=== PATIENT | female | born 1950 | race Caucasian/White ===

== ENCOUNTER → 2016-10-16 | Outpatient (CLI) | payer BC ==
[2016-10-16 13:34] LABS: ALBUMIN 3.8 GM/DL (3.2-5.2); ALBUMIN/GLOBULIN RATIO 1.31 (1.00-1.93); ALKALINE PHOSPHATASE 51 U/L (45-117); ALT/SGPT 26 U/L (12-78); ANION GAP 7 MEQ/L (8-16); AST/SGOT 14 U/L (15-37); BILIRUBIN,TOTAL 0.4 MG/DL (0.2-1.0); BLOOD UREA NITROGEN 17 MG/DL (7-18); CALCIUM LEVEL 8.9 MG/DL (8.8-10.2); CARBON DIOXIDE LEVEL 29 MEQ/L (21-32); CHLORIDE LEVEL 105 MEQ/L (98-107); CHOLESTEROL LEVEL 203 MG/DL (<200); CREATININE FOR GFR 0.62 MG/DL (0.55-1.02); FREE T4 1.11 NG/DL (0.76-1.46); GLOMERULAR FILTRATION RATE > 60.0 (>45); GLUCOSE, FASTING 108 MG/DL (80-110); POTASSIUM SERUM 4.9 MEQ/L (3.5-5.1); SODIUM LEVEL 141 MEQ/L (136-145); TOTAL PROTEIN 6.7 GM/DL (6.4-8.2); TRIGLYCERIDES LEVEL 54 MG/DL (<150)
== END ==
LOC: M SMT 08:05
PROVIDERS: ATTEND Family Medicine
DX: E11.40 Type 2 diabetes mellitus with diabetic neuropathy, unspecified (principal); E78.2 Mixed hyperlipidemia; E03.8 Other specified hypothyroidism

== ENCOUNTER → 2017-05-10 | Outpatient (CLI) | payer BC ==
[2017-05-10 14:48] LABS: ANION GAP 7 MEQ/L (8-16); BLOOD UREA NITROGEN 14 MG/DL (7-18); CALCIUM LEVEL 9.5 MG/DL (8.8-10.2); CARBON DIOXIDE LEVEL 28 MEQ/L (21-32); CHLORIDE LEVEL 104 MEQ/L (98-107); CHOLESTEROL LEVEL 191 MG/DL (<200); CREATININE FOR GFR 0.58 MG/DL (0.55-1.02); FREE T4 1.21 NG/DL (0.76-1.46); GLOMERULAR FILTRATION RATE > 60.0 (>45); GLUCOSE, FASTING 96 MG/DL (80-110); MAGNESIUM LEVEL 2.4 MG/DL (1.8-2.4); POTASSIUM SERUM 5.1 MEQ/L (3.5-5.1); SODIUM LEVEL 139 MEQ/L (136-145); TRIGLYCERIDES LEVEL 45 MG/DL (<150)
== END ==
LOC: M SMT 09:07
PROVIDERS: ATTEND Physician Assistant
DX: E11.40 Type 2 diabetes mellitus with diabetic neuropathy, unspecified (principal); E03.8 Other specified hypothyroidism

== ENCOUNTER → 2017-05-20 | Outpatient (CLI) | payer BC ==
[2017-05-25 00:06] LABS: Lyme Disease IgG Ab 18 kDa Ban Absent (.); Lyme Disease IgG Ab 23 kDa Ban Absent (.); Lyme Disease IgG Ab 28 kDa Ban Absent (.); Lyme Disease IgG Ab 30 kDa Ban Present (.); Lyme Disease IgG Ab 39 kDa Ban Absent (.); Lyme Disease IgG Ab 41 kDa Ban Present (.); Lyme Disease IgG Ab 45 kDa Ban Present (.); Lyme Disease IgG Ab 58 kDa Ban Absent (.); Lyme Disease IgG Ab 66 kDa Ban Absent (.); Lyme Disease IgG Ab 93 kDa Ban Absent (.); Lyme Disease IgG West Blot Int Negative (.); Lyme Disease IgG/IgM Antibodie <0.91 ISR (0.00-0.90); Lyme Disease IgM Ab 23 kDa Ban Absent (.); Lyme Disease IgM Ab 39 kDa Ban Absent (.); Lyme Disease IgM Ab 41 kDa Ban Present (.); Lyme Disease IgM Ab Quantitati 0.92 index (0.00-0.79); Lyme Disease IgM West Blot Int Negative (.)
== END ==
LOC: M SMT 13:34
PROVIDERS: ATTEND Family Medicine
DX: I45.10 Unspecified right bundle-branch block (principal); R94.31 Abnormal electrocardiogram [ECG] [EKG]

== ENCOUNTER → 2017-08-05 | Outpatient (CLI) | payer BC ==
--- NOTE | 2017-08-05 14:15 | REPMRS ---
Patient History The patient states she had a clinical breast exam in April 2017.Patient is postmenopausal. Family history of unknown cancer in father at age 57 and unknown cancer in mother at age 71. Digital Mammo Screening Bilat: August 05, 2017 - Exam #: [id number] Bilateral CC and MLO view(s) were taken. Technologist: Mya Hui Technologist Prior study comparison: July 29, 2016, bilateral digital mammo screening bilat performed at [facility]. June 17, 2015, bilateral digital mammo screening bilat performed at [facility]. FINDINGS: There are scattered fibroglandular densities. There has been no change in the appearance of the mammogram from the prior studies. There is a mild amount of residual fibroglandular tissue which is fairly symmetric. There is no interval development of dominant mass, architectural distortion, or clustered microcalcification suggestive of malignancy. ASSESSMENT: BI-RADS/ACR category 1 mammogram. Negative. Recommendation Routine screening mammogram in 1 year (for women over age 40). This mammogram was interpreted with the aid of an FDA-approved computer-aided dectection system. Electronically Signed By: Lux Berrios MD 08/05/17 1764
== END ==
LOC: M RAD 12:01
PROVIDERS: ATTEND Family Medicine
DX: Z12.31 Encounter for screening mammogram for malignant neoplasm of breast (principal); Z78.0 Asymptomatic menopausal state

== ENCOUNTER → 2017-09-03 | Outpatient (REF) | payer BC ==
[2017-09-03 14:19] LABS: BASO # 0.1 10^3/uL (0.0-0.2); BASO % 1.4 % (0.0-1.0); EOS # 0.2 10^3/uL (0.0-0.50); EOS % 4.3 % (0.0-3.0); HEMATOCRIT 39.9 % (36.0-47.0); HEMOGLOBIN 13.3 g/dl (12.0-16.0); IMMATURE GRANULOCYTE % 0.2 % (0-0); LYMPH # 1.6 10^3/uL (1.5-4.5); LYMPH % 38.9 % (24.0-44.0); MEAN CORPUSCULAR HEMOGLOBIN 31.1 pg (27.0-33.0); MEAN CORPUSCULAR HGB CONC 33.3 g/dl (32.0-36.5); MEAN CORPUSCULAR VOLUME 93.4 fl (80.0-96.0); MONO # 0.4 10^3/uL (0.0-0.8); MONO % 10.4 % (0.0-5.0); NEUTROPHILS # 1.9 10^3/uL (1.8-7.7); NEUTROPHILS % 44.8 % (36.0-66.0); PLATELET COUNT, AUTOMATED 276 10^3/uL (150-450); RED BLOOD COUNT 4.27 10^6/uL (4.00-5.40); RED CELL DISTRIBUTION WIDTH 13.8 % (11.5-14.5); WHITE BLOOD COUNT 4.1 10^3/uL (4.0-10.0)
[2017-09-03 14:46] LABS: ALBUMIN 3.8 GM/DL (3.2-5.2); ALBUMIN/GLOBULIN RATIO 1.41 (1.00-1.93); ALKALINE PHOSPHATASE 35 U/L (45-117); ALT/SGPT 20 U/L (12-78); ANION GAP 7 MEQ/L (8-16); AST/SGOT 14 U/L (7-37); BILIRUBIN,TOTAL 0.5 MG/DL (0.2-1.0); BLOOD UREA NITROGEN 11 MG/DL (7-18); CALCIUM LEVEL 8.8 MG/DL (8.8-10.2); CARBON DIOXIDE LEVEL 29 MEQ/L (21-32); CHLORIDE LEVEL 104 MEQ/L (98-107); CHOLESTEROL LEVEL 216 MG/DL (<200); CHOLESTEROL RISK RATIO 2.117 (<5); CREATININE FOR GFR 0.62 MG/DL (0.55-1.02); FREE T4 1.08 NG/DL (0.76-1.46); GLOMERULAR FILTRATION RATE > 60.0 (>45); GLUCOSE, FASTING 110 MG/DL (80-110); HDL CHOLESTEROL 102 MG/DL (>40); NON-HDL-C 114 MG/DL; SODIUM LEVEL 140 MEQ/L (136-145); TOTAL PROTEIN 6.5 GM/DL (6.4-8.2); TRIGLYCERIDES LEVEL 40 MG/DL (<150)
[2017-09-03 15:41] LABS: ESTIMATED AVERAGE GLUCOSE 134 MG/DL (60-110); HEMOGLOBIN A1c 6.3 %
== END ==
LOC: M LAB REF 13:43
DX: E11.9 Type 2 diabetes mellitus without complications (principal); E78.2 Mixed hyperlipidemia
CPT/HCPCS: 84443

== ENCOUNTER → 2018-04-15 | Outpatient (CLI) | payer MEDICARE ==
[2018-04-15 10:07] LABS: RHEUMATOID FACTOR QUANT < 10.0 IU/ML (<15.0)
[2018-04-15 10:07] LABS: C REACTIVE PROTEIN QUANTITATIV < 0.30 MG/DL (0.00-0.30)
[2018-04-15 10:16] LABS: BASO # 0.1 10^3/uL (0.0-0.2); BASO % 1.4 % (0.0-1.0); EOS # 0.2 10^3/uL (0.0-0.50); EOS % 3.3 % (0.0-3.0); HEMATOCRIT 40.5 % (36.0-47.0); HEMOGLOBIN 13.7 g/dl (12.0-15.5); LYMPH # 1.9 10^3/uL (1.5-4.5); LYMPH % 37.5 % (24.0-44.0); MEAN CORPUSCULAR HEMOGLOBIN 31.1 pg (27.0-33.0); MEAN CORPUSCULAR HGB CONC 33.8 g/dl (32.0-36.5); MONO # 0.5 10^3/uL (0.0-0.8); MONO % 9.3 % (0.0-5.0); NEUTROPHILS # 2.5 10^3/uL (1.8-7.7); NEUTROPHILS % 48.5 % (36.0-66.0); PLATELET COUNT, AUTOMATED 330 10^3/uL (150-450); RED CELL DISTRIBUTION WIDTH 14.6 % (11.5-14.5); WHITE BLOOD COUNT 5.2 10^3/uL (4.0-10.0)
[2018-04-15 10:48] LABS: ERYTHROCYTE SEDIMENTATION RATE 8 mm/hr (0-30)
[2018-04-21 00:06] LABS: ANTINUCLEAR ANTIBODIES DIRECT Negative (Negative); Lyme Disease IgG Ab 18 kDa Ban Absent (.); Lyme Disease IgG Ab 23 kDa Ban Absent (.); Lyme Disease IgG Ab 28 kDa Ban Absent (.); Lyme Disease IgG Ab 30 kDa Ban Absent (.); Lyme Disease IgG Ab 39 kDa Ban Absent (.); Lyme Disease IgG Ab 41 kDa Ban Absent (.); Lyme Disease IgG Ab 45 kDa Ban Absent (.); Lyme Disease IgG Ab 58 kDa Ban Absent (.); Lyme Disease IgG Ab 66 kDa Ban Absent (.); Lyme Disease IgG Ab 93 kDa Ban Absent (.); Lyme Disease IgG West Blot Int Negative (.); Lyme Disease IgG/IgM Antibodie <0.91 ISR (0.00-0.90); Lyme Disease IgM Ab 23 kDa Ban Absent (.); Lyme Disease IgM Ab 39 kDa Ban Absent (.); Lyme Disease IgM Ab 41 kDa Ban Absent (.); Lyme Disease IgM Ab Quantitati 0.82 index (0.00-0.79); Lyme Disease IgM West Blot Int Negative (.)
== END ==
LOC: M SMT 08:00
DX: M17.11 Unilateral primary osteoarthritis, right knee (principal); Z79.899 Other long term (current) drug therapy
CPT/HCPCS: 86140

== ENCOUNTER → 2018-07-21 | Outpatient (CLI) | payer MEDICARE ==
[2018-07-21 14:17] LABS: BASO # 0.1 10^3/uL (0.0-0.2); BASO % 1.6 % (0.0-1.0); EOS # 0.1 10^3/uL (0.0-0.50); EOS % 2.8 % (0.0-3.0); HEMATOCRIT 42.5 % (36.0-47.0); HEMOGLOBIN 14.1 g/dl (12.0-15.5); IMMATURE GRANULOCYTE % 0.2 % (0-3.0); LYMPH # 1.7 10^3/uL (1.5-4.5); LYMPH % 34.9 % (24.0-44.0); MEAN CORPUSCULAR HGB CONC 33.2 g/dl (32.0-36.5); MEAN CORPUSCULAR VOLUME 93.4 fl (80.0-96.0); MONO # 0.5 10^3/uL (0.0-0.8); MONO % 9.3 % (0.0-5.0); NEUTROPHILS # 2.5 10^3/uL (1.8-7.7); NEUTROPHILS % 51.2 % (36.0-66.0); PLATELET COUNT, AUTOMATED 325 10^3/uL (150-450); RED BLOOD COUNT 4.55 10^6/uL (4.00-5.40); RED CELL DISTRIBUTION WIDTH 14.1 % (11.5-14.5)
[2018-07-21 14:50] LABS: ALBUMIN 3.6 GM/DL (3.2-5.2); ALBUMIN/GLOBULIN RATIO 1.24 (1.00-1.93); ALKALINE PHOSPHATASE 42 U/L (45-117); ALT/SGPT 20 U/L (12-78); ANION GAP 7 MEQ/L (8-16); AST/SGOT 14 U/L (7-37); BILIRUBIN,TOTAL 0.5 MG/DL (0.2-1.0); BLOOD UREA NITROGEN 9 MG/DL (7-18); CALCIUM LEVEL 8.7 MG/DL (8.8-10.2); CARBON DIOXIDE LEVEL 29 MEQ/L (21-32); CHLORIDE LEVEL 103 MEQ/L (98-107); CHOLESTEROL LEVEL 219 MG/DL (<200); CHOLESTEROL RISK RATIO 2.354 (<5); CREATININE FOR GFR 0.66 MG/DL (0.55-1.30); FREE T4 1.16 NG/DL (0.76-1.46); GLOMERULAR FILTRATION RATE > 60.0 (>45); GLUCOSE, FASTING 97 MG/DL (70-100); HDL CHOLESTEROL 93 MG/DL (>40); LDL CHOLESTEROL 115 MG/DL (<100); NON-HDL-C 126 MG/DL; POTASSIUM SERUM 4.9 MEQ/L (3.5-5.1); SODIUM LEVEL 139 MEQ/L (136-145); TOTAL PROTEIN 6.5 GM/DL (6.4-8.2); TRIGLYCERIDES LEVEL 57 MG/DL (<150)
[2018-07-21 15:02] LABS: ESTIMATED AVERAGE GLUCOSE 143 MG/DL (60-110); HEMOGLOBIN A1c 6.6 %
[2018-07-22 11:14] LABS: HEPATITIS C VIRUS ABY INDEX 0.1 INDEX (<0.8)
== END ==
LOC: M SMT 09:18
DX: E11.9 Type 2 diabetes mellitus without complications (principal); E03.8 Other specified hypothyroidism; E78.2 Mixed hyperlipidemia; Z13.0 Encounter for screening for diseases of the blood and blood-forming organs and certain disorders involving the immune mechanism
CPT/HCPCS: 84443

== ENCOUNTER 2018-07-24 17:54 | Emergency (ER) | payer MEDICARE, BC ==
[2018-07-24 18:31] LABS: BASO # 0.1 10^3/uL (0.0-0.2); BASO % 1.1 % (0.0-1.0); EOS # 0.1 10^3/uL (0.0-0.50); EOS % 2.1 % (0.0-3.0); HEMATOCRIT 38.3 % (36.0-47.0); HEMOGLOBIN 13.2 g/dl (12.0-15.5); IMMATURE GRANULOCYTE % 0.2 % (0-3.0); LYMPH # 2.3 10^3/uL (1.5-4.5); LYMPH % 35.8 % (24.0-44.0); MEAN CORPUSCULAR HEMOGLOBIN 31.1 pg (27.0-33.0); MEAN CORPUSCULAR HGB CONC 34.5 g/dl (32.0-36.5); MEAN CORPUSCULAR VOLUME 90.1 fl (80.0-96.0); MONO # 0.6 10^3/uL (0.0-0.8); MONO % 9.1 % (0.0-5.0); NEUTROPHILS # 3.3 10^3/uL (1.8-7.7); NEUTROPHILS % 51.7 % (36.0-66.0); PLATELET COUNT, AUTOMATED 292 10^3/uL (150-450); RED BLOOD COUNT 4.25 10^6/uL (4.00-5.40); RED CELL DISTRIBUTION WIDTH 13.8 % (11.5-14.5); WHITE BLOOD COUNT 6.3 10^3/uL (4.0-10.0)
[2018-07-24 18:49] LABS: D-DIMER QUANT 371.87 ng/ml (<500)
[2018-07-24 19:07] LABS: ANION GAP 10 MEQ/L (8-16); BLOOD UREA NITROGEN 10 MG/DL (7-18); CALCIUM LEVEL 8.9 MG/DL (8.8-10.2); CARBON DIOXIDE LEVEL 25 MEQ/L (21-32); CHLORIDE LEVEL 97 MEQ/L (98-107); FREE T4 1.29 NG/DL (0.76-1.46); GLOMERULAR FILTRATION RATE > 60.0 (>45); GLUCOSE, FASTING 113 MG/DL (70-100); MAGNESIUM LEVEL 2.1 MG/DL (1.8-2.4); POTASSIUM SERUM 3.7 MEQ/L (3.5-5.1); SODIUM LEVEL 132 MEQ/L (136-145)
[2018-07-24 19:39] LABS: CK-MB VALUE MASS < 1.0 NG/ML (<3.6); CPK CREATINE PHOSPHOKINASE 79 U/L (26-192); MB/CK RELATIVE INDEX 1.27 (< OR =4); TROPONIN I < 0.02 NG/ML (< 0.10)
== END 2018-07-24 20:21 | disposition home or self-care (01) ==
LOC: M ED 17:54
DX: I49.3 Ventricular premature depolarization (principal); T38.0X5A Adverse effect of glucocorticoids and synthetic analogues, initial encounter; X58.XXXA Exposure to other specified factors, initial encounter; Y92.89 Other specified places as the place of occurrence of the external cause; I45.10 Unspecified right bundle-branch block; E11.9 Type 2 diabetes mellitus without complications; I10 Essential (primary) hypertension; E78.9 Disorder of lipoprotein metabolism, unspecified; E07.9 Disorder of thyroid, unspecified; Z79.899 Other long term (current) drug therapy; Z79.82 Long term (current) use of aspirin; Z79.890 Hormone replacement therapy
CPT/HCPCS: 71045

== ENCOUNTER → 2018-08-22 | Outpatient (CLI) | payer BC, MEDICARE ==
[~2018-08-22] MED LIST: ASPI1TAB PO; CALC500T36 PO; LECIGRA PO; LOSA50TA88 PO; MAGN400C2 PO; MULTCAP PO; OSTETAB4 PO; ROSU5TAB4 PO; SYNT75TA PO; UBIQ100C3 PO; VITA500T PO; [UNRECOGNIZED DRUG - OTHER]; tumeric
--- NOTE | 2018-08-22 12:23 | REPMRS ---
Patient History The patient states she has not had a clinical breast exam in over a year. Family history of unknown cancer at age 71 in mother, unknown cancer at age 57 in father. Digital Mammo Screening Bilat: August 22, 2018 - Exam #: [id number] Bilateral CC and MLO view(s) were taken. Technologist: Renetta Torrez, Technologist Prior study comparison: August 05, 2017, bilateral digital mammo screening bilat performed at [facility]. July 29, 2016, bilateral digital mammo screening bilat performed at [facility]. June 17, 2015, bilateral digital mammo screening bilat performed at [facility]. FINDINGS: There are scattered fibroglandular densities. There has been no change in the appearance of the mammogram from the prior studies. There is a mild amount of scattered fibroglandular density which is fairly symmetric. There is no interval development of dominant mass, architectural distortion, or clustered microcalcification suggestive of malignancy. 3-D tomosynthesis shows no additional findings. Assessment: BI-RADS/ACR category 1 mammogram. Negative. Recommendation Routine screening mammogram of both breasts in 1 year (for women over age 40). This patient's Lifetime Breast Cancer RIsk is estimated at 5.7 %. This mammogram was interpreted with the aid of an FDA-approved computer-aided dectection system. Electronically Signed By: Yemi Morley MD 08/22/18 4320
== END ==
LOC: M RAD 11:15
PROVIDERS: ATTEND Family Medicine
DX: Z12.31 Encounter for screening mammogram for malignant neoplasm of breast (principal)

== ENCOUNTER → 2018-12-16 | Outpatient (CLI) | payer MEDICARE ==
[~2018-12-16] MED LIST changes: -ASPI1TAB PO; +ASPI81TA26 PO; +CALC12504 PO; -CALC500T36 PO
[2018-12-16 13:28] LABS: ALBUMIN 3.4 GM/DL (3.2-5.2); ALT/SGPT 22 U/L (12-78); BILIRUBIN,TOTAL 0.4 MG/DL (0.2-1.0); BLOOD UREA NITROGEN 12 MG/DL (7-18); CALCIUM LEVEL 8.7 MG/DL (8.8-10.2); CARBON DIOXIDE LEVEL 27 MEQ/L (21-32); CHLORIDE LEVEL 105 MEQ/L (98-107); CHOLESTEROL LEVEL 241 MG/DL (<200); CHOLESTEROL RISK RATIO 2.648 (<5); CREATININE FOR GFR 0.69 MG/DL (0.55-1.30); GLOMERULAR FILTRATION RATE > 60.0 (>45); GLUCOSE, FASTING 101 MG/DL (70-100); HDL CHOLESTEROL 91 MG/DL (>40); LDL CHOLESTEROL 140 MG/DL (<100); NON-HDL-C 150 MG/DL; SODIUM LEVEL 137 MEQ/L (136-145); THYROID STIMULATING HORMONE 0.491 uIU/ML (0.358-3.740); TOTAL PROTEIN 6.4 GM/DL (6.4-8.2); TRIGLYCERIDES LEVEL 48 MG/DL (<150)
[2018-12-16 13:32] LABS: HEMOGLOBIN A1c 6.2 %
[2018-12-16 13:41] LABS: MALB URINE SIEMENS 9.1 MG/L
== END ==
LOC: M SMT 08:43
PROVIDERS: ATTEND Family Medicine
DX: E11.9 Type 2 diabetes mellitus without complications (principal); E78.2 Mixed hyperlipidemia

== ENCOUNTER → 2019-07-28 | Outpatient (CLI) | payer MEDICARE ==
[~2019-07-28] MED LIST changes: -CALC12504 PO; +CALC500T61 PO; -ROSU5TAB4 PO; +ROSU5TAB5 PO
[2019-07-28 13:39] LABS: BASO # 0.1 10^3/uL (0.0-0.2); BASO % 1.5 % (0.0-1.0); EOS # 0.1 10^3/uL (0.0-0.5); EOS % 2.8 % (0.0-3.0); HEMATOCRIT 41.7 % (36.0-47.0); HEMOGLOBIN 13.6 g/dl (12.0-15.5); LYMPH # 1.3 10^3/uL (1.5-5.0); LYMPH % 34.4 % (24.0-44.0); MEAN CORPUSCULAR HEMOGLOBIN 31.1 pg (27.0-33.0); MEAN CORPUSCULAR HGB CONC 32.6 g/dl (32.0-36.5); MEAN CORPUSCULAR VOLUME 95.4 fl (80.0-96.0); MONO # 0.4 10^3/uL (0.0-0.8); MONO % 10.8 % (0.0-5.0); NEUTROPHILS % 50.2 % (36.0-66.0); PLATELET COUNT, AUTOMATED 342 10^3/uL (150-450); RED BLOOD COUNT 4.37 10^6/uL (4.00-5.40); WHITE BLOOD COUNT 3.9 10^3/uL (4.0-10.0)
[2019-07-28 13:48] LABS: INR 0.97; PROTHROMBIN TIME 12.6 SECONDS (11.8-14.0)
[2019-07-28 13:52] LABS: ALBUMIN 3.8 GM/DL (3.2-5.2); ALT/SGPT 20 U/L (12-78); BILIRUBIN,TOTAL 0.5 MG/DL (0.2-1.0); BLOOD UREA NITROGEN 12 MG/DL (7-18); CALCIUM LEVEL 9.8 MG/DL (8.8-10.2); CARBON DIOXIDE LEVEL 29 MEQ/L (21-32); CHLORIDE LEVEL 102 MEQ/L (98-107); CHOLESTEROL LEVEL 314 MG/DL (<200); CHOLESTEROL RISK RATIO 3.108 (<5); CREATININE FOR GFR 0.71 MG/DL (0.55-1.30); GLOMERULAR FILTRATION RATE > 60.0 (>45); GLUCOSE, FASTING 111 MG/DL (70-100); HDL CHOLESTEROL 101 MG/DL (>40); LDL CHOLESTEROL 202 MG/DL (<100); NON-HDL-C 213 MG/DL; SODIUM LEVEL 137 MEQ/L (136-145); TOTAL PROTEIN 6.8 GM/DL (6.4-8.2); TRIGLYCERIDES LEVEL 55 MG/DL (<150)
[2019-07-28 14:07] LABS: HEMOGLOBIN A1c 6.1 %
== END ==
LOC: M PLALAB 09:28
PROVIDERS: ATTEND Physician Assistant
DX: E11.9 Type 2 diabetes mellitus without complications (principal); M23.306 Other meniscus derangements, unspecified meniscus, right knee

== ENCOUNTER → 2020-01-31 | Outpatient (CLI) | payer MEDICARE ==
[~2020-01-31] MED LIST changes: +ASPI-161 PO; +C 50TAB PO; +CALC500T44 PO; +GLUCTAB64 PO; +OMEG100011 PO; +UBIQ200C PO; +VITA-243 PO; -VITA500T PO; +VITMTA PO
[2020-01-31 13:27] LABS: ALBUMIN 3.7 GM/DL (3.2-5.2); ALT/SGPT 29 U/L (12-78); BILIRUBIN,TOTAL 0.6 MG/DL (0.2-1.0); BLOOD UREA NITROGEN 16 MG/DL (7-18); CALCIUM LEVEL 9.1 MG/DL (8.8-10.2); CARBON DIOXIDE LEVEL 28 MEQ/L (21-32); CHLORIDE LEVEL 107 MEQ/L (98-107); CREATININE FOR GFR 0.63 MG/DL (0.55-1.30); GLOMERULAR FILTRATION RATE > 60.0 (>45); GLUCOSE, FASTING 104 MG/DL (70-100); SODIUM LEVEL 139 MEQ/L (136-145); THYROID STIMULATING HORMONE 0.573 uIU/ML (0.358-3.740); TOTAL 25(OH) VITAMIN D 46.8 NG/ML (30.0-100.0); TOTAL PROTEIN 6.5 GM/DL (6.4-8.2)
[2020-01-31 15:54] LABS: HEMOGLOBIN A1c 6.7 %
== END ==
LOC: M PLALAB 08:46
PROVIDERS: ATTEND Physician Assistant
DX: E11.9 Type 2 diabetes mellitus without complications (principal)

== ENCOUNTER → 2020-08-20 | Outpatient (REF) | payer MEDICARE ==
[~2020-08-20] MED LIST changes: -ASPI-161 PO; -C 50TAB PO; -CALC500T44 PO; -GLUCTAB64 PO; -OMEG100011 PO; -UBIQ200C PO; -VITMTA PO
== END ==
LOC: M LAB REF 17:30
PROVIDERS: ATTEND Family Medicine
DX: J06.9 Acute upper respiratory infection, unspecified (principal)

== ENCOUNTER → 2020-09-09 | Outpatient (CLI) | payer MEDICARE ==
[~2020-09-09] MED LIST changes: +ASPI-161 PO; +C 50TAB PO; +CALC500T44 PO; +GLUCTAB64 PO; +OMEG100011 PO; +UBIQ200C PO; +VITMTA PO
[2020-09-09 10:10] LABS: BASO # 0.1 10^3/uL (0.0-0.2); EOS # 0.2 10^3/uL (0.0-0.5); EOS % 3.1 % (0.0-3.0); HEMATOCRIT 41.8 % (36.0-47.0); HEMOGLOBIN 13.8 g/dl (12.0-15.5); LYMPH # 1.6 10^3/uL (1.5-5.0); LYMPH % 32.6 % (24.0-44.0); MEAN CORPUSCULAR HEMOGLOBIN 30.6 pg (27.0-33.0); MEAN CORPUSCULAR VOLUME 92.7 fl (80.0-96.0); MONO # 0.4 10^3/uL (0.0-0.8); MONO % 8.9 % (0.0-5.0); NEUTROPHILS # 2.6 10^3/uL (1.5-8.5); NEUTROPHILS % 54.2 % (36.0-66.0); PLATELET COUNT, AUTOMATED 256 10^3/uL (150-450); RED BLOOD COUNT 4.51 10^6/uL (4.00-5.40); WHITE BLOOD COUNT 4.8 10^3/uL (4.0-10.0)
[2020-09-09 10:40] LABS: HEMOGLOBIN A1c 5.4 %
[2020-09-09 10:58] LABS: ALBUMIN 3.8 GM/DL (3.2-5.2); ALT/SGPT 16 U/L (12-78); BILIRUBIN,TOTAL 0.5 MG/DL (0.2-1.0); BLOOD UREA NITROGEN 16 MG/DL (7-18); CARBON DIOXIDE LEVEL 30 MEQ/L (21-32); CHLORIDE LEVEL 105 MEQ/L (98-107); CHOLESTEROL LEVEL 307 MG/DL (<200); CHOLESTEROL RISK RATIO 4.514 (<5); CREATININE FOR GFR 0.83 MG/DL (0.55-1.30); FREE T4 1.46 NG/DL (0.76-1.46); GLOMERULAR FILTRATION RATE > 60.0 (>45); GLUCOSE, FASTING 110 MG/DL (70-100); HDL CHOLESTEROL 68 MG/DL (>40); LDL CHOLESTEROL 225 MG/DL (<100); NON-HDL-C 239 MG/DL; POTASSIUM SERUM 4.9 MEQ/L (3.5-5.1); SODIUM LEVEL 139 MEQ/L (136-145); THYROID STIMULATING HORMONE 0.387 uIU/ML (0.358-3.740); TOTAL PROTEIN 6.7 GM/DL (6.4-8.2); TRIGLYCERIDES LEVEL 68 MG/DL (<150)
== END ==
LOC: M PLALAB 08:55
PROVIDERS: ATTEND Physician Assistant
DX: E03.9 Hypothyroidism, unspecified (principal); E11.9 Type 2 diabetes mellitus without complications; U07.1 COVID-19; Z79.899 Other long term (current) drug therapy

== ENCOUNTER 2020-09-11 22:00 | Inpatient (IN) | payer MEDICARE ==
[~2020-09-11] VITALS: Ht 175.3 cm; Wt 84.9 kg
[~2020-09-11 22:00] MED LIST changes: -ASPI-161 PO; -C 50TAB PO; -CALC500T44 PO; -GLUCTAB64 PO; -OMEG100011 PO; -UBIQ200C PO; -VITMTA PO
--- OUTSIDE RECORDS SUMMARY | 2020-09-11 22:05 | CCD | Continuity of Care Document ---
Author Author Key DAOO Yeyo Organization Unknown Address [address] [place] [address] Phone [phone] Care Team Providers Care Sample Room Supervisor Name Role Phone Rosie Dao D.O. AUTM [phone] Problems Active Problems Provider Date Essential hypertension Onset: 05/23/2014 Carpal tunnel syndrome Rosie Dao D.O. Onset: 03/2014 Arthralgia of the ankle and/or foot Rosario Pacheco Onset: 07/23/2014 Hypothyroidism Rosie Dao D.O. Onset: 2013 Hyperlipidemia Rosie Dao D.O. Onset: 2013 Type 2 diabetes mellitus Rosie Dao D.O. Onset: 1 09/23/2013 Obesity Rosie Dao D.O. Onset: 2013 Multiple joint pain Rosie Dao D.O. Onset: 2013 Gastroesophageal reflux disease Rosie Dao D.O. O nset: 07/23/2014 Degenerative joint disease involving multiple joints Rosie Mckeon D.O. Onset: 10/22/2014 Pre-surgery evaluation Rosie Dao D.O. Onset: 01/2015 Bunion Rosie Dao D.O. Onset: 2014 Calcaneal spur Rosie Dao D.O. Onset: 2014 Mixed hyperlipidemia Rosario PachecoO. Onset: 02/21 Screening mammography Rosie Dao D.O. Onset: 04/2015 Type 2 diabetes mellitus with diabetic neuropathy, uns pecified Rosie Bond D.O. Onset: 05/24/2015 Body mass index [BMI] 33.0-33.9, adult Rosie Dao D.O. Onset: 10/10/2015 Vitamin D deficiency Rosie Dao D.O. Onset: 01/07 Constipation Rosie Dao D.O. Onset: 2015 Overweight Rosie Dao D.O. Onset: 2015 Body mass index 25-29 - overweight Torie Pacheco Onset: 07/21/2016 Right bundle branch block MADELYN Neff Onset: 019 Long QT syndrome MADELYN Neff Onset: 12/19/2018 Social History Type Date Description Comments Sex Unknown ETOH Use one glass of wine "occasionally" Tobacco Use Start: Unknown Patient has never smoked Recreational Drug Use Denies Drug Use Smoking Status Reviewed: 09/10/20 Patient has never smoked Exercise Type/Frequency Exercises regularly walk ing Seat Belt/Car Seat Always uses seat belt Allergies, Adverse Reactions, Alerts Description No Known Drug Allergies Medications Active Medications SIG Qnty Indications Ordering Provide r Date Bone Broth Protein Rosario ChongOYeyo 05/12/2017 Rosuvastatin Calcium 5mg Tablets take 1 tablet every other day 90tabs E78.2 Rosario PachecoO Yeyo 04/09/2016 Calcium 600+D 606-380yr-Kypg Table ts 1 by mouth daily 30tabs E55.9 Rosario PachecoOYeyo 01/07 Aspir-[address] 1 by mouth every day 90tabs E11.9 Liu Pacheco.O. 02/21 Levothyroxine Sodium 75mcg Tablets Take 1 Tablet Every Morning 90tabs Rosario PachecoOYeyo 08/01/2014 Osteo Bi-Flex Regular Strength 250-200mg Tablets one tablet in the morning and one in the evening Unknown Multi Vitamin Daily Tablets 1 by mouth daily Unknown Magnesium 500mg Capsules 1 by mouth every day Unknown Acetaminophen 325mg Tablets take 2 tablets by mouth every 6 hours as needed for knee pain or headache Unknown Fish Oil 1200mg Capsules 1 by mouth every day Unknown Miralax 17gm Packet one packet mixed with 8 ounces of water daily as needed Unknown History Medications Amlodipine Besylate 5mg Tablets 1 by mouth every morning 30tabs I10 Liu Pacheco.OYeyo 08/20 - 09/10/2020 Medications Administered in Office Medication SIG Qnty Indications Ordering Provider Date Immunization Administration Single Or Co mbination Injection MADELYN Chris 0 09/06/2017 Immunization Administration Single Or Co mbination Injection Nurse 7 Immunization Administration Single Or Co mbination Injection Liu Pacheco.O. 08/29/2014 Immunizations CPT Code Status Date Vaccine Lot # [id number] Given 06/24/2018 Influenza Virus Vaccine, Quadrivalent, Split, Preservative Free [id number] Given 09/06/2017 Pneumococcal Con jugate Vaccine 13 Valent For Intramuscular Use [id number] 64795 Given 06/21/2017 Influenza Vaccin e Quadrivalent Preser/Antibiotic Free Im Use [id number] U-Flu Given 06/23/2016 Influenza,Unspecified 77580 Given 08/29/2014 Tetanus, Diphthe gee Toxoids/Acellular Pertussis Vaccine 7 Or > [id number] Vital Signs Date Vital Result Comment 09/10/2020 10:55am BP Systolic 160 mmHg BP Diastolic 72 mmHg Height 67 inches 5'7" Weight 191.00 lb BMI (Body Mass Index) 29.9 kg/m2 Heart Rate 100 /min Respiratory Rate 14 /min Body Temperature 98.0 F O2 % BldC Oximetry 98 % [place] Body Weight 135 lb 08/20/2020 4:11pm BP Systolic 166 mmHg BP Diastolic 84 mmHg Height 67 inches 5'7" Weight 199.00 lb BMI (Body Mass Index) 31.2 kg/m2 Heart Rate 97 /min Respiratory Rate 18 /min Body Temperature 98.0 F O2 % BldC Oximetry 98 % [place] Body Weight 135 lb Results Test Acquired Date Facility Test Result H/L Range Note CBC With Differential 09/09/[address] [address] [phone] White Blood Count 4.8 10 Normal 4.0-10.0 Red Blood Count 4.51 10 Normal 4.00-5.40 Hemoglobin 13.8 g/dL Normal 12.0-15.5 Hematocrit 41.8 % Normal 36.0-47.0 Mean Corpuscular Volume 92.7 fl Normal 80.0-96.0 Mean Corpuscular Hemoglobin 30.6 pg Normal 27.0-33.0 Mean Corpuscular HGB Conc 33.0 g/dL Normal 32.0-36.5 Red Cell Distribution Width 14.5 % Normal 11.5-14.5 Platelet Count, Automated 256 10 Normal 150-450 Neutrophils % 54.2 % Normal 36.0-66.0 Lymph % 32.6 % Normal 24.0-44.0 Todd % 8.9 % High 0.0-5.0 Eos % 3.1 % High 0.0-3.0 Baso % 1.0 % Normal 0.0-1.0 Immature Granulocyte % 0.2 % Normal 0-3.0 Nucleated Red Blood Cell % 0.0 % Normal 0-0 Neutrophils # 2.6 10 Normal 1.5-8.5 Lymph # 1.6 10 Normal 1.5-5.0 Todd # 0.4 10 Normal 0.0-0.8 Eos # 0.2 10 Normal 0.0-0.5 Baso # 0.1 10 Normal 0.0-0.2 Laboratory test finding 09/09/2020 [address] [place] [address] [phone] Total 25(Oh) Vitamin D 67.0 NG/ML Normal 30.0-100. 0 FT4&TSH Panel 09/09/2020 [facility] [address] [place] [address] [phone] Thyroid Stimulating Hormone 0.387 uIU/ML Normal 0. 358-3.740 Free T4 1.46 ng/dL Normal 0.76-1.46 Comprehensive Metabolic Profil 09/09/[address] [address] [phone] Glucose, Fasting 110 mg/dL High 70-100 Blood Urea Nitrogen 16 mg/dL Normal 7-18 Creatinine For GFR 0.83 mg/dL Normal 0.55-1.30 Glomerular Filtration Rate > 60.0 Normal >45 1 Sodium Level 139 mEq/L Normal 136-145 Potassium Serum 4.9 mEq/L Normal 3.5-5.1 Chloride Level 105 mEq/L Normal 98-107 Carbon Dioxide Level 30 mEq/L Normal 21-32 Anion Gap 4 mEq/L Low 8-16 Calcium Level 10.0 mg/dL Normal 8.8-10.2 Ast/Sgot 5 U/L Low 7-37 Alt/SGPT 16 U/L Normal 12-78 Alkaline Phosphatase 39 U/L Low 45-117 Bilirubin,Total 0.5 mg/dL Normal 0.2-1.0 Total Protein 6.7 GM/DL Normal 6.4-8.2 Albumin 3.8 GM/DL Normal 3.2-5.2 Albumin/Globulin Ratio 1.3 Normal 1.2-2.2 Hemoglobin A1c 09/09/[address] [address] [phone] Hemoglobin A1c 5.4 % Normal 2 Estimated Average Glucose 108 mg/dL Normal 60-110 Lipid Panel 09/09/[address] [address] [phone] Triglycerides Level 68 mg/dL Normal <150 Cholesterol Level 307 mg/dL High <200 HDL Cholesterol 68 mg/dL Normal >40 LDL Cholesterol 225 mg/dL High <100 Non-HDL-C 239 mg/dL Normal Cholesterol Risk Ratio 4.514 Normal <5 Laboratory test finding 09/09/[address] [address] [phone] D-Dimer Quant 519.01 ng/ml High <500 Respiratory Panel 08/20/[address] [address] [phone] Respiratory Panel This respiratory <SEE NOTE> 3 1 Units are mL/min/1.73 m2 Chronic Kidney Disease Staging per NKF: Stage I & II GFR >=60 Normal to Mildly Decreased Stage III GFR 30-59 Moderately Decreased Stage IV GFR 15-29 Severely Decreased Stage V GFR <15 Very Little GFR Left ESRD GFR <15 on REFINERY OPERATOR ALKYLATION 2 REFERENCE RANGES: <=5.6% NORMAL 5.7-6.4% SUGGESTS IMPAIRED GLUCOSE META BOLISM/PREDIABETIC >= 6.5% ABNORMAL 3 This respiratory PCR panel d etects Influenza A H1, H3 and 2009 H1 viruses, Influenza B virus, Resp iratory Syncytial Virus, Human metapneumovirus, Parainfluenza virus 1, 2, 3 and 4, Adenovirus, Rhinovirus/Enterovirus, Coronavirus HKU1, NL63, OC43, 229E and SARS-CoV-2 (COVID 19), Bordetella pertussis, Bordetella parapertussis, Mycoplasma pneumoniae and Chlamydia pneumoniae. POSITIVE by MULTIPLEXED NUCLEIC ACID PCR SARS-CoV-2 (COVID 19) POSITIVE - SARS-CoV-2 (COVID19) ORGANISM 1: SARS-CoV-2 (COVID 19) Procedures Date Code Description Status 08/22/2018 [id number] Mammogram Completed 08/05/2017 [id number] Mammogram Completed 07/29/2016 [id number] Mammogram Completed Medical Devices Description No Information Available Encounters Type Date Location Provider Dx Diagnosis Office Visit 09/10/2020 10:40a [facility] Frank Dao D.O. I10 Essential (primary) hyperten silverio E11.9 Type 2 diabetes mellitus wit hout complications E03.9 Hypothyroidism, unspecified E78.2 Mixed hyperlipidemia Z79.899 Other intermediate designer (current) dr kayden sterling Z79.82 assisted (current) use of a spirin R00.2 Palpitations R07.89 Other chest pain Office Visit 08/20/2020 4:00p [facility] Frank Dao D.O. I10 Essential (primary) hyperten silverio J06.9 Acute upper respiratory infe ction, unspecified Z79.82 assisted (current) use of a spirin Z79.899 Other intermediate designer (current) dr monique therapy Assessments Date Code Description Provider 09/10/2020 I10 Essential (primary) hypertension Rosie Dao D.O. 09/10/2020 E11.9 Type 2 diabetes mellitus without complications Liu Garcia.OYeyo 09/10/2020 E03.9 Hypothyroidism, unspecified Rosie Dao D.O. 09/10/2020 E78.2 Mixed hyperlipidemia Liu Shay.O. 09/10/2020 Z79.899 Other shelter (current) drug t herapy Liu Pacheco.O. 09/10/2020 Z79.82 terminal operations manager (current) use of aspir in Rosie Dao D.O. 09/10/2020 R00.2 Palpitations Liu Rangel.O. 09/10/2020 R07.89 Other chest pain Liu Soto.O. 08/20/2020 I10 Essential (primary) hypertension Liu Pacheco.OYeyo 08/20/2020 J06.9 Acute upper respiratory infectio n, unspecified Liu Garcia.OYeyo 08/20/2020 Z79.82 assisted (current) use of aspir in Liu Pacheco.O. 08/20/2020 Z79.899 Other shelter (current) drug t herapy Rosie Dao D.O. Plan of Treatment Future Appointment(s):* 10/14/2020 10:20 am - Rosie Dao D.O. at [facility] Functional Status Description No Information Available Mental Status Description No Information Available Referrals Refer to Reason for Referral Status Appt Date Michell Escalera M.D. This is a 69 year old female with recent COVID diagnosis. She had elevated BP when I diagnosed her and I added another agent and then she started to have syncope at home and now is mosly normotensice off her regular losartan and the additional amlodipine. She also complains of intermittent heart pounding. Please evaluate and treat. Sent [facility] [address] [place] [id number] [phone]
--- OUTSIDE RECORDS SUMMARY | 2020-09-11 22:06 | CCD | Continuity of Care Document ---
Author Author Key DAOO Yeyo Organization Unknown Address [address] [place] [address] Phone [phone] Care Team Providers Care Tool And Gauge Inspector Name Role Phone Rosie Dao D.O. AUTM Problems Active Problems Provider Date Essential hypertension [...] Use Denies Drug Use Smoking Status Reviewed: 08/20/20 Patient has never smoked Exercise Type/Frequency Exercises regularly walk ing Seat Belt/Car Seat Always uses seat belt Allergies, Adverse Reactions, Alerts Description No Known Drug Allergies Medications Active Medications SIG Qnty Indications Ordering Provide r Date Amlodipine Besylate 5mg Tablets 1 by mouth every morning 30tabs I10 Rosie Dao D.O. 08/20 Bone Broth Protein Rosario ChongOYeyo 05/12/2017 Rosuvastatin Calcium 5mg Tablets take 1 tablet every other day 90tabs E78.2 Rosario PachecoO Yeyo 04/09/2016 Calcium 600+D 251-388kt-Aekt Table ts 1 by mouth daily 30tabs E55.9 Liu Pacheco.OYeyo 01/07 Losartan Potassium 50mg Tablets Take 1 Tablet Daily 90tabs I10 Rosario PachecoOYeyo 10/10 Aspir-[address] 1 by mouth every day 90tabs E11.9 Rosie Dao D.O. 02/21 Levothyroxine Sodium 75mcg Tablets Take 1 Tablet Every Morning 90tabs Rosie Dao D.O. 08/01/2014 Osteo Bi-Flex Regular Strength 250-200mg Tablets [...] Capsules 1 by mouth every day Unknown Amoxicillin 500mg Capsules take 4 caps by mouth 1 hour before dental procedure Unknown Miralax 17gm Packet one packet mixed with 8 ounces of water daily as needed Unknown Medications Administered in Office Medication SIG Qnty Indications Ordering Provider Date Immunization Administration Single Or Co mbination Injection MADELYN Chris 0 09/06/2017 Immunization Administration Single Or Co mbination Injection Nurse 7 Immunization Administration Single Or Co mbination Injection Rosie Dao D.O. 08/29/2014 Immunizations CPT Code Status Date Vaccine Lot # [id number] Given 06/24/2018 Influenza Virus Vaccine, Quadrivalent, Split, Preservative Free [id number] 06661 Given 09/06/2017 Pneumococcal Con jugate Vaccine 13 Valent For Intramuscular Use [id number] 13978 Given 06/21/2017 Influenza Vaccin e Quadrivalent Preser/Antibiotic Free Im Use [id number] U-Flu Given 06/23/2016 Influenza,Unspecified 45930 Given 08/29/2014 Tetanus, Diphthe gee Toxoids/Acellular Pertussis Vaccine 7 Or > [id number] Vital Signs Date Vital Result Comment 08/20/2020 4:11pm BP Systolic 166 mmHg BP Diastolic 84 mmHg Height 67 inches 5'7" Weight 199.00 lb BMI (Body Mass Index) 31.2 kg/m2 Heart Rate 97 /min Respiratory Rate 18 /min Body Temperature 98.0 F O2 % BldC Oximetry 98 % [place] Body Weight 135 lb 02/01/2020 9:52am BP Systolic 124 mmHg BP Diastolic 76 mmHg Height 67 inches 5'7" Weight 191.25 lb BMI (Body Mass Index) 30.0 kg/m2 Heart Rate 94 /min Respiratory Rate 18 /min Body Temperature 98.1 F O2 % BldC Oximetry 99 % [place] Body Weight 135 lb Results Test Acquired Date Facility Test Result H/L Range Note Respiratory Panel 08/20/2020 [facility] [address] [place] [address] [phone] Respiratory Panel This respiratory <SEE NOTE> 1 1 This respiratory PCR panel d etects Influenza [...] 19) Procedures Date Code Description Status 08/22/2018 [id number] Mammogram Completed 08/05/2017 [id number] Mammogram Completed 07/29/2016 [id number] Mammogram Completed Medical Devices Description No Information Available Encounters Type Date Location Provider Dx Diagnosis Office Visit 08/20/2020 4:00p [facility] Rosie Dao D.O. I10 Essential (primary) hyperten silverio J06.9 Acute upper respiratory infe ction, unspecified Z79.82 [facility] (current) use of a spirin Z79.899 Other solutions operator (current) dr monique therapy Assessments Date Code Description Provider 08/20/2020 I10 Essential (primary) hypertension Rosie Dao D.O. 08/20/2020 J06.9 Acute upper respiratory infectio n, unspecified Rosie Bond D.O. 08/20/2020 Z79.82 [facility] (current) use of aspir in Rosie Dao D.O. 08/20/2020 Z79.899 Other solutions operator (current) drug t herapy Rosie Dao D.O. Plan of Treatment Future Appointment(s):* 09/05/2020 9:30 am - Rosie Dao D.O. at [facility] Functional Status Description No Information Available Mental Status Description No Information Available Referrals Description No Information Available
--- OUTSIDE RECORDS SUMMARY | 2020-09-11 22:06 | CCD | Continuity of Care Document ---
Author Author Key DAOO Yeyo Organization Unknown Address [address] [place] [address] Phone [phone] Care Team Providers Care Director Of Exhibits Name Role Phone Rosie Dao D.O. AUTM [...] E78.2 Rosario PachecoO Yeyo 04/09/2016 Calcium 600+D [id number] Table ts 1 by mouth daily 30tabs [...] CPT Code Status Date Vaccine Lot # [id number] Given 06/24/2018 Influenza Virus Vaccine, Quadrivalent, Split, Preservative Free [id number] 52589 Given 09/06/2017 Pneumococcal Con jugate Vaccine 13 Valent For Intramuscular Use [id number] 22639 Given 06/21/2017 Influenza Vaccin e Quadrivalent Preser/Antibiotic Free Im Use [id number] U-Flu Given 06/23/2016 Influenza,Unspecified 47982 Given 08/29/2014 Tetanus, Diphthe gee Toxoids/Acellular Pertussis Vaccine 7 Or > [id number] Vital Signs Date Vital Result Comment 08/20/2020 4:11pm BP Systolic 166 mmHg BP Diastolic 84 mmHg Height 67 inches 5'7" Weight 199.00 lb BMI (Body Mass Index) 31.2 kg/m2 Heart Rate 97 /min Respiratory Rate 18 /min Body Temperature 98.0 F O2 % BldC Oximetry 98 % [place] Body Weight 135 lb 02/01/2020 9:52am BP Systolic 124 mmHg BP Diastolic 76 mmHg Height 67 inches 5'7" Weight 191.25 lb BMI (Body Mass Index) 30.0 kg/m2 Heart Rate 94 /min Respiratory Rate 18 /min Body Temperature 98.1 F O2 % BldC Oximetry 99 % [place] Body Weight 135 lb Results Test Acquired Date Facility Test Result H/L Range Note Respiratory Panel 08/20/2020 [facility] [address] [place] [address] [phone] Respiratory Panel This respiratory <SEE NOTE> 1 [...] 19) Procedures Date Code Description Status 08/22/2018 [id number] Mammogram Completed 08/05/2017 [id number] Mammogram Completed 07/29/2016 [id number] Mammogram Completed Medical Devices Description No Information Available Encounters Type Date Location Provider Dx Diagnosis Office Visit 08/20/2020 4:00p [facility] Rosie Dao D.O. I10 Essential (primary) hyperten silverio J06.9 Acute upper respiratory infe ction, unspecified Z79.82 [facility] (current) use of a spirin Z79.899 Other long term acute care registered nurse (current) dr monique therapy Assessments Date Code Description Provider 08/20/2020 I10 Essential (primary) hypertension Rosie Dao D.O. 08/20/2020 J06.9 Acute upper respiratory infectio n, unspecified Rosie Bond D.O. 08/20/2020 Z79.82 [facility] (current) use of aspir in Rosie Dao D.O. 08/20/2020 Z79.899 Other long term acute care registered nurse (current) drug t herapy Rosie Dao D.O. Plan of Treatment Future Appointment(s):* 09/05/2020 9:30 am - Rosie Dao D.O. at [facility] Functional Status Description No Information Available Mental Status Description No Information Available Referrals Description No Information Available
--- OUTSIDE RECORDS SUMMARY | 2020-09-11 22:06 | CCD | Continuity of Care Document ---
Author Author Key DAOO Yeyo Organization Unknown Address [address] [place] [address] Phone [phone] Care Team Providers Care Steel Burner Name Role Phone Rosie Dao D.O. AUTM [...] E78.2 Rosario PachecoO Yeyo 04/09/2016 Calcium 600+D [id number] Table ts 1 by mouth daily 30tabs [...] CPT Code Status Date Vaccine Lot # 27772 Given 06/24/2018 Influenza Virus Vaccine, Quadrivalent, Split, Preservative Free [id number] 28317 Given 09/06/2017 Pneumococcal Con jugate Vaccine 13 Valent For Intramuscular Use [id number] 38399 Given 06/21/2017 Influenza Vaccin e Quadrivalent Preser/Antibiotic Free Im Use [id number] U-Flu Given 06/23/2016 Influenza,Unspecified 97543 Given 08/29/2014 Tetanus, Diphthe gee Toxoids/Acellular Pertussis Vaccine 7 Or > [id number] Vital Signs Date Vital Result Comment 08/20/2020 4:11pm BP Systolic 166 mmHg BP Diastolic 84 mmHg Height 67 inches 5'7" Weight 199.00 lb BMI (Body Mass Index) 31.2 kg/m2 Heart Rate 97 /min Respiratory Rate 18 /min Body Temperature 98.0 F O2 % BldC Oximetry 98 % [place] Body Weight 135 lb 02/01/2020 9:52am BP Systolic 124 mmHg BP Diastolic 76 mmHg Height 67 inches 5'7" Weight 191.25 lb BMI (Body Mass Index) 30.0 kg/m2 Heart Rate 94 /min Respiratory Rate 18 /min Body Temperature 98.1 F O2 % BldC Oximetry 99 % [place] Body Weight 135 lb Results Description No Information Available Procedures Date Code Description Status 08/22/2018 [id number] Mammogram Completed 08/05/2017 [id number] Mammogram Completed 07/29/2016 [id number] Mammogram Completed Medical Devices Description No Information Available Encounters Type Date Location Provider Dx Diagnosis Office Visit 08/20/2020 4:00p [facility] Rosie Dao D.O. 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 08/20/2020 J06.9 Acute upper respiratory infectio n, unspecified Rosie Bond D.O. 08/20/2020 Z79.82 truck terminal manager (current) use of aspir in Rosie Dao D.O. 08/20/2020 Z79.899 Other truck terminal manager (current) drug t herapy Rosie Dao D.O. Plan of Treatment Future Appointment(s):* 09/05/2020 9:30 am - Rosie Dao D.O. at [facility] Functional Status Description No Information Available Mental Status Description No Information Available Referrals Description No Information Available
--- OUTSIDE RECORDS SUMMARY | 2020-09-11 22:06 | CCD | Continuity of Care Document ---
Author Author Key DAOO Yeyo Organization Unknown Address [address] [place] [address] Phone [phone] Care Team Providers Care Court Commissioner Name Role Phone Rosie Dao D.O. AUTM [phone] Problems Active Problems Provider Date Essential hypertension [...] E78.2 Rosario PachecoO Yeyo 04/09/2016 Calcium 600+D 135-266nr-Owxr Table ts 1 by mouth daily 30tabs E55.9 Rosario PachecoOYeyo 01/07 Aspir-[address] 1 by mouth every day 90tabs E11.9 iLu Pacheco.O. 02/21 Levothyroxine Sodium 75mcg Tablets Take [...] CPT Code Status Date Vaccine Lot # [id number] Given 06/24/2018 Influenza Virus Vaccine, Quadrivalent, Split, Preservative Free [id number] Given 09/06/2017 Pneumococcal Con jugate Vaccine 13 Valent For Intramuscular Use [id number] Given 06/21/2017 Influenza Vaccin e Quadrivalent Preser/Antibiotic Free Im Use [id number] U-Flu Given 06/23/2016 Influenza,Unspecified [id number] Given 08/29/2014 Tetanus, Diphthe gee Toxoids/Acellular Pertussis Vaccine 7 Or > [id number] Vital Signs Date Vital Result Comment 09/10/2020 10:55am BP Systolic 160 mmHg BP Diastolic 72 mmHg Height 67 inches 5'7" Weight 191.00 lb BMI (Body Mass Index) 29.9 kg/m2 Heart Rate 100 /min Respiratory Rate 14 /min Body Temperature 98.0 F O2 % BldC Oximetry 98 % [place] Body Weight 135 lb 08/20/2020 4:11pm BP Systolic 166 mmHg BP Diastolic 84 mmHg Height 67 inches 5'7" Weight 199.00 lb BMI (Body Mass Index) 31.2 kg/m2 Heart Rate 97 /min Respiratory Rate 18 /min Body Temperature 98.0 F O2 % BldC Oximetry 98 % [place] Body Weight 135 lb Results Test Acquired Date Facility Test Result H/L Range Note CBC With Differential 09/09/[address] [address] [phone] White Blood Count 4.8 10 Normal 4.0-10.0 [...] 36.0-66.0 Lymph % 32.6 % Normal 24.0-44.0 [place] % 8.9 % High 0.0-5.0 Eos % 3.1 % High 0.0-3.0 Baso % 1.0 % Normal 0.0-1.0 Immature Granulocyte % 0.2 % Normal 0-3.0 Nucleated Red Blood Cell % 0.0 % Normal 0-0 Neutrophils # 2.6 10 Normal 1.5-8.5 Lymph # 1.6 10 Normal 1.5-5.0 [place] # 0.4 10 Normal 0.0-0.8 Eos # 0.2 10 Normal 0.0-0.5 Baso # 0.1 10 Normal 0.0-0.2 Laboratory test finding 09/09/2020 [id number] [place] [address] [phone] Total 25(Oh) Vitamin D 67.0 NG/ML Normal 30.0-100. 0 FT4&TSH Panel 09/09/2020 [facility] [address] [place] [address] [phone] Thyroid Stimulating Hormone 0.387 uIU/ML Normal 0. 358-3.740 Free T4 1.46 ng/dL Normal 0.76-1.46 Comprehensive Metabolic Profil 09/09/[address] [address] [phone] Glucose, Fasting 110 mg/dL High 70-100 Blood [...] Ratio 1.3 Normal 1.2-2.2 Hemoglobin A1c 09/09/[address] [address] [phone] Hemoglobin A1c 5.4 % Normal 2 Estimated Average Glucose 108 mg/dL Normal 60-110 Lipid Panel 09/09/[address] [address] [phone] Triglycerides Level 68 mg/dL Normal <150 Cholesterol Level 307 mg/dL High <200 HDL Cholesterol 68 mg/dL Normal >40 LDL Cholesterol 225 mg/dL High <100 Non-HDL-C 239 mg/dL Normal Cholesterol Risk Ratio 4.514 Normal <5 Laboratory test finding 09/09/[address] [address] [phone] D-Dimer Quant 519.01 ng/ml High <500 Respiratory Panel 08/20/[address] [address] [phone] Respiratory Panel This respiratory <SEE NOTE> 3 1 Units are mL/min/1.73 m2 Chronic Kidney Disease Staging per NKF: Stage I & II GFR >=60 Normal to Mildly Decreased Stage III GFR 30-59 Moderately Decreased Stage IV GFR 15-29 Severely Decreased Stage V GFR <15 Very Little GFR Left ESRD GFR <15 on APPEALS ASSISTANT 2 REFERENCE RANGES: <=5.6% NORMAL 5.7-6.4% SUGGESTS [...] 19) Procedures Date Code Description Status 08/22/2018 [id number] Mammogram Completed 08/05/2017 [id number] Mammogram Completed 07/29/2016 [id number] Mammogram Completed Medical Devices Description No Information Available Encounters Type Date Location Provider Dx Diagnosis Office Visit 09/10/2020 10:40a [facility] Frank Dao D.O. 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 09/10/2020 E11.9 Type 2 diabetes mellitus without complications Liu Garcia.OYeyo 09/10/2020 E03.9 Hypothyroidism, unspecified Rosie Dao D.O. 09/10/2020 E78.2 Mixed hyperlipidemia Liu Shay.O. 09/10/2020 Z79.899 Other longterm (current) drug t herapy Liu Pcaheco.O. 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 09/10/2020 R00.2 Palpitations Liu Rangel.O. 09/10/2020 R07.89 Other chest pain Liu Soto.O. 08/20/2020 I10 Essential (primary) hypertension Liu Pacheco.OYeyo 08/20/2020 J06.9 Acute upper respiratory infectio n, unspecified Liu Garcia.OYeyo 08/20/2020 Z79.82 USP (current) use of aspir in Liu Pacheco.O. 08/20/2020 Z79.899 Other longterm (current) drug t herapy Rosie Dao D.O. Plan of Treatment Future Appointment(s):* 10/14/2020 10:20 am - Rosie Dao D.O. at [facility] Functional Status Description No Information Available [...] heart pounding. Please evaluate and treat. Sent [facility] [address] [place] [id number] [phone]
--- OUTSIDE RECORDS SUMMARY | 2020-09-11 22:07 | CCD ---
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 Name Role Phone Ellis Ruiz Unavailable Unavailable BirklinEllis Unavailable Unavailable BirklinEllis Unavailable Unavailable BirklinEllis Unavailable Unavailable BirklinEllis Unavailable Unavailable BirklinEllis Unavailable Unavailable BirklinEllis Unavailable Unavailable BirklinEllis Unavailable Unavailable BirklinEllis Unavailable Unavailable BirklinEllis Unavailable Unavailable BirklinEllis Unavailable Unavailable BirklinEllis Unavailable Unavailable BirklinEllis Unavailable Unavailable BirklinEllis Unavailable Unavailable BirklinEllis Unavailable Unavailable BirklinEllis Unavailable Unavailable BirklinEllis Unavailable Unavailable BirklinEllis Unavailable Unavailable BirklinEllis Unavailable Unavailable BirklinEllis Unavailable Unavailable BirklinEllis Unavailable Unavailable BirklinEllis Unavailable Unavailable BirklinEllis Unavailable Unavailable BirklinEllis Unavailable Unavailable BirklinEllis Unavailable Unavailable BirklinEllis Unavailable Unavailable BirklinEllis Unavailable Unavailable BirklinEllis Unavailable Unavailable BIANKA PETERS MD Unavailable Unavailable BIANKA PETERS MD Unavailable Unavailable BIANKA PETERS MD Unavailable Unavailable BIANKA PETERS MD Unavailable Unavailable BIANKA PETERS MD Unavailable Unavailable BIANKA PETERS MD Unavailable Unavailable BIANKA PETERS MD Unavailable Unavailable BIANKA PETERS MD Unavailable Unavailable LORRAINE, BIANKA MD Unavailable Unavailable LORRAINE, BIANKA MD Unavailable Unavailable LORRAINE, BIANKA MD Unavailable Unavailable LORRAINE, BIANKA MD Unavailable Unavailable LORRAINE, BIANKA MD Unavailable Unavailable LORRAINE, BIANKA MD Unavailable Unavailable LORRAINE, BIANKA MD Unavailable Unavailable LORRAINE, BIANKA MD Unavailable Unavailable LORRAINE, BIANKA MD Unavailable Unavailable LORRAINE, BIANKA MD Unavailable Unavailable LORRAINE, BIANKA MD Unavailable Unavailable LORRAINE, BIANKA MD Unavailable Unavailable LORRAINE, BIANKA MD Unavailable Unavailable LORRAINE, BIANKA MD Unavailable Unavailable LORRAINE, BIANKA MD Unavailable Unavailable LORRAINE, BIANKA MD Unavailable Unavailable LORRAINE, BIANKA MD Unavailable Unavailable LORRAINE, BIANKA MD Unavailable Unavailable LORRAINE, BIANKA MD Unavailable Unavailable LORRAINE, BIANKA MD Unavailable Unavailable LORRAINE, BIANKA MD Unavailable Unavailable LORRAINE, BIANKA MD Unavailable Unavailable LORRAINE, BIANKA MD Unavailable Unavailable LORRAINE, BIANKA MD Unavailable Unavailable LORRAINE, BIANKA MD Unavailable Unavailable LORRAINE, BIANKA MD Unavailable Unavailable LORRAINE, BIANKA MD Unavailable Unavailable LORRAINE, BIANKA MD Unavailable Unavailable LORRAINE, BIANKA MD Unavailable Unavailable LORRAINE, BIANKA MD Unavailable Unavailable LORRAINE, BIANKA MD Unavailable Unavailable LORRAINE, BIANKA MD Unavailable Unavailable LORRAINE, BIANKA MD Unavailable Unavailable LORRAINE, BIANKA MD Unavailable Unavailable LORRAINE, BIANKA MD Unavailable Unavailable LORRAINE, BIANKA MD Unavailable Unavailable LORRAINE, BIANKA MD Unavailable Unavailable LORRAINE, BIANKA MD Unavailable Unavailable LORRAINE, BIANKA MD Unavailable Unavailable LORRAINE, BIANKA MD Unavailable Unavailable LORRAINE, BIANKA MD Unavailable Unavailable LORRAINE, BIANKA MD Unavailable Unavailable LORRAINE, BIANKA MD Unavailable Unavailable LORRAINE, BIANKA MD Unavailable Unavailable LORRAINE, BIAKNA MD Unavailable Unavailable LORRAINE, BIANKA MD Unavailable Unavailable LORRAINE, BIANKA MD Unavailable Unavailable LORRAINE, BIANKA MD Unavailable Unavailable LORRAINE, BIANKA MD Unavailable Unavailable LORRAINE, BIANKA MD Unavailable Unavailable LORRAINE, BIANKA MD Unavailable Unavailable LORRAINE, BIANKA MD Unavailable Unavailable LORRAINE, BIANKA MD Unavailable Unavailable LORRAINE, BIANKA MD Unavailable Unavailable LORRAINE, BIANKA MD Unavailable Unavailable LORRAINE, BIANKA MD Unavailable Unavailable LORRAINE, BIANKA MD Unavailable Unavailable LORRAINE, BIANKA MD Unavailable Unavailable LORRAINE, BIANKA MD Unavailable Unavailable Sumanth Castillo PA Unavailable Unavailable Sumanth Castillo PA Unavailable Unavailable Sumanth Castillo PA Unavailable Unavailable AnnaSumanth kramer PA Unavailable Unavailable Anna, Sumanth PA Unavailable Unavailable Anna, Sumanth PA Unavailable Unavailable Anna, Sumanth PA Unavailable Unavailable Anna, Sumanth PA Unavailable Unavailable Anna, Sumanth PA Unavailable Unavailable Anna, Sumanth PA Unavailable Unavailable Anna, Sumanth PA Unavailable Unavailable Anna, Sumanth PA Unavailable Unavailable Anna, Sumanth PA Unavailable Unavailable Anna, Sumanth PA Unavailable Unavailable Anna, Sumanth PA Unavailable Unavailable Anna, Sumanth PA Unavailable Unavailable Anna, Sumanth PA Unavailable Unavailable Anna, Sumanth PA Unavailable Unavailable Anna, Sumanth PA Unavailable Unavailable Anna, Sumanth PA Unavailable Unavailable Anna, Sumanth PA Unavailable Unavailable Anna, Sumanth PA Unavailable Unavailable Anna, Sumanth PA Unavailable Unavailable Anna, Sumanth PA Unavailable Unavailable Anna, Sumanth PA Unavailable Unavailable Anna, Sumanth PA Unavailable Unavailable Anna, Sumanth PA Unavailable Unavailable Anna, Sumanth PA Unavailable Unavailable Anna, Sumanth PA Unavailable Unavailable Anna, Sumanth PA Unavailable Unavailable Anna, Sumanth PA Unavailable Unavailable Anna, Sumanth PA Unavailable Unavailable Anna, Sumanth PA Unavailable Unavailable Anna, Sumanth PA Unavailable Unavailable Anna, Sumanth PA Unavailable Unavailable Anna, Sumanth PA Unavailable Unavailable Anna, Sumanth PA Unavailable Unavailable Anna, Sumanth PA Unavailable Unavailable Anna, Sumanth PA Unavailable Unavailable Anna, Sumanth PA Unavailable Unavailable Anna, Sumanth PA Unavailable Unavailable Anna, Sumanth PA Unavailable Unavailable Anna, Sumanth PA Unavailable Unavailable Anna, Sumanth PA Unavailable Unavailable Anna, Sumanth PA Unavailable Unavailable Anna, Sumanth PA Unavailable Unavailable Anna, Sumanth PA Unavailable Unavailable Anna, Sumanth PA Unavailable Unavailable LUCAS-ALMA, ROSIE DO Unavailable Unavailable LUCAS-ALMA, ROSIE DO Unavailable Unavailable LUCAS-ALMA, ROSIE DO Unavailable Unavailable LUCAS-ALMA, ROSIE DO Unavailable Unavailable LUCAS-ALMA, ROSIE DO Unavailable Unavailable LUCAS-ALMA, ROSIE DO Unavailable Unavailable LUCAS-ALMA, ROSIE DO Unavailable Unavailable LUCAS-ALMA, ROSIE DO Unavailable Unavailable LUCAS-ALMA, ROSIE DO Unavailable Unavailable LUCAS-ALMA, ROSIE DO Unavailable Unavailable LUCAS-ALMA, ROSIE DO Unavailable Unavailable LUCAS-ALMA, ROSIE DO Unavailable Unavailable LUCAS-ALMA, ROSIE DO Unavailable Unavailable LUCAS-ALMA, ROSIE DO Unavailable Unavailable LUCAS-ALMA, ROSIE DO Unavailable Unavailable LUCAS-ALMA, ROSIE DO Unavailable Unavailable LUCAS-ALMA, ROSIE DO Unavailable Unavailable LUCAS-ALMA, ROSIE DO Unavailable Unavailable LUCAS-ALMA, ROSIE DO Unavailable Unavailable LUCAS-ALMA, ROSIE DO Unavailable Unavailable LUCAS-ALMA, ROSIE DO Unavailable Unavailable LUCAS-ALMA, ROSIE DO Unavailable Unavailable LUCAS-ALMA, ROSIE DO Unavailable Unavailable LUCAS-ALMA, ROSIE DO Unavailable Unavailable LUCAS-ALMA, ROSIE DO Unavailable Unavailable LUCAS-ALMA, ROSIE DO Unavailable Unavailable LUCAS-ALMA, ROSIE DO Unavailable Unavailable LUCAS-ALMA, ROSIE DO Unavailable Unavailable LUCAS-ALMA, ROSIE DO Unavailable Unavailable LUCAS-ALMA, ROSIE DO Unavailable Unavailable LUCAS-ALMA, ROSIE DO Unavailable Unavailable LUCAS-ALMA, ROSIE DO Unavailable Unavailable LUCAS-ALMA, ROSIE DO Unavailable Unavailable LUCAS-ALMA, ROSIE DO Unavailable Unavailable LUCAS-ALMA, ROSIE DO Unavailable Unavailable LUCAS-ALMA, ROSIE DO Unavailable Unavailable LUCAS-ALMA, ROSIE DO Unavailable Unavailable LUCAS-ALMA, ROSIE DO Unavailable Unavailable LUCAS-ALMA, ROSIE DO Unavailable Unavailable LUCAS-ALMA, ROSIE DO Unavailable Unavailable LUCAS-ALMA, ROSIE DO Unavailable Unavailable LUCAS-ALMA, ROSIE DO Unavailable Unavailable LUCAS-ALMA, ROSIE DO Unavailable Unavailable LUCAS-ALMA, ROSIE DO Unavailable Unavailable LUCAS-ALMA, ROSIE DO Unavailable Unavailable LUCAS-ALMA, ROSIE DO Unavailable Unavailable LUCAS-ALMA, ROSIE DO Unavailable Unavailable LUCAS-ALMA, ROSIE DO Unavailable Unavailable LUCAS-ALMA, ROSIE DO Unavailable Unavailable LUCAS-ALMA, ROSIE DO Unavailable Unavailable LUCAS-ALMA, ROSIE DO Unavailable Unavailable LUCAS-ALMA, ROSIE DO Unavailable Unavailable LUCAS-ALMA, ROSIE DO Unavailable Unavailable LUCAS-ALMA, ROSIE DO Unavailable Unavailable LUCAS-ALMA, ROSIE DO Unavailable Unavailable LUCAS-ALMA, ROSIE DO Unavailable Unavailable LUCAS-ALMA, ROSIE DO Unavailable Unavailable LUCAS-ALMA, ROSIE DO Unavailable Unavailable LUCAS-ALMA, ROSIE DO Unavailable Unavailable LUCAS-ALMA, ROSIE DO Unavailable Unavailable LUCAS-ALMA, ROSIE DO Unavailable Unavailable LUCAS-ALMA, ROSIE DO Unavailable Unavailable LUCAS-ALMA, ROSIE DO Unavailable Unavailable LUCAS-ALMA, ROSIE DO Unavailable Unavailable LUCAS-ALMA, ROSIE DO Unavailable Unavailable LUCAS-ALMA, ROSIE DO Unavailable Unavailable LUCAS-ALMA, ROSIE DO Unavailable Unavailable LUCAS-ALMA, ROSIE DO Unavailable Unavailable LUCAS-ALMA, ROSIE DO Unavailable Unavailable LUCAS-ALMA, ROSIE DO Unavailable Unavailable LUCAS-ALMA, ROSIE DO Unavailable Unavailable LUCAS-ALMA, ROSIE DO Unavailable Unavailable LUCAS-ALMA, ROSIE DO Unavailable Unavailable LUCAS-ALMA, ROSIE DO Unavailable Unavailable LUCAS-ALMA, ROSIE DO Unavailable Unavailable LUCAS-ALMA, ROSIE DO Unavailable Unavailable LUCAS-ALMA, ROSIE DO Unavailable Unavailable LUCAS-ALMA, ROSIE DO Unavailable Unavailable LUCAS-ALMA, ROSIE DO Unavailable Unavailable LUCAS-ALMA, ROSIE DO Unavailable Unavailable LUCAS-ALMA, ROSIE DO Unavailable Unavailable LUCAS-ALMA, ROSIE DO Unavailable Unavailable O'radha, A Pierre PA Unavailable Unavailable O'radha, A Pierre PA Unavailable Unavailable O'radha, A Pierre PA Unavailable Unavailable O'radha, A Pierre PA Unavailable Unavailable O'radha, A Pierre PA Unavailable Unavailable O'radha, A Pierre PA Unavailable Unavailable O'radha, A Pierre PA Unavailable Unavailable O'radha, A Pierre PA Unavailable Unavailable O'radha, A Pierre PA Unavailable Unavailable O'radha, A Pierre PA Unavailable Unavailable O'radha, A Pierre PA Unavailable Unavailable O'radha, A Pierre PA Unavailable Unavailable O'radha, A Pierre PA Unavailable Unavailable O'radha, A Pierre PA Unavailable Unavailable O'radha, A Pierre PA Unavailable Unavailable O'radha, A Pierre PA Unavailable Unavailable O'radha, A Pierre PA Unavailable Unavailable O'radha, A Pierre PA Unavailable Unavailable O'radha, A Pierre PA Unavailable Unavailable O'radha, A Pierre PA Unavailable Unavailable O'radha, A Pierre PA Unavailable Unavailable O'radha, A Pierre PA Unavailable Unavailable O'radha, A Pierre PA Unavailable Unavailable O'radha, A Pierre PA Unavailable Unavailable O'radha, A Pierre PA Unavailable Unavailable O'radha, A Pierre PA Unavailable Unavailable O'radha, A Pierre PA Unavailable Unavailable O'radha, A Pierre PA Unavailable Unavailable O'radha, A Pierre PA Unavailable Unavailable O'radha, A Pierre PA Unavailable Unavailable O'radha, A Pierre PA Unavailable Unavailable O'radha, A Pierre PA Unavailable Unavailable Re-disclosure Warning The records that you are about to access may contain information from federally-assisted alcohol or drug abuse programs. If such information is present, then the following federally mandated warning applies: This information has been disclosed to you from records protected by federal confidentiality rules (42 CFR part 2). The federal rules prohibit you from making any further disclosure of this information unless further disclosure is expressly permitted by the written consent of the person to whom it pertains or as otherwise permitted by 42 CFR part 2. A general authorization for the release of medical or other information is NOT sufficient for this purpose. The Federal rules restrict any use of the information to criminally investigate or prosecute any alcohol or drug abuse patient.The records that you are about to access may contain highly sensitive health information, the redisclosure of which is protected by Article 27-F of the [facility] Public Health law. If you continue you may have access to information: Regarding HIV / AIDS; Provided by facilities licensed or operated by the [facility] Office of Mental Health; or Provided by the [facility] Office for People With Developmental Disabilities. If such information is present, then the following [facility] mandated warning applies: This information has been disclosed to you from confidential records which are protected by state law. State law prohibits you from making any further disclosure of this information without the specific written consent of the person to whom it pertains, or as otherwise permitted by law. Any unauthorized further disclosure in violation of state law may result in a fine or [place] [facility] sentence or both. A general authorization for the release of medical or other information is NOT sufficient authorization for further disc losure. Allergies and Adverse Reactions Type Description Substance Reaction Status Data Source(s ) Drug Class NO KNOWN ALLERGIES NO KNOWN ALLERGIES [facility] No Known Drug Allergies No Known Drug Allergies No Known Drug Aller gies active [facility] ([facility] ) Family History Family Member Name Family Member Gender Family Member Status Date o f Status Description Data Source(s) Unknown Male Problem [facility] ([facility]) Unknown Male Problem [facility] ([facility]) Unknown Female Problem MEDENT (Family [facility]) Encounters Encounter Providers Location Date Indications Data Source(s ) Outpatient Attender: ROSIE DALEY DO [facility] 09/10/2020 09:40:00 AM EST MEDENT ([facility]) Outpatient Attender: Lux JOSHI 09/03/2020 12:00:00 AM EST [facility] Outpatient Attender: ROSIE DALEY [facility] 08/20/2020 03:00:00 PM EST MEDENT ([facility]) Outpatient Attender: Lux JOSHI [id number] 04/03/2020 12 :00:00 AM EDT Presence of right artificial hip joint [facility] Presence of right artificial hip joint Outpatient Referrer: BIANKA PETERS MD 04/03/2020 12:00:0 0 AM EDT Presence of right artificial hip joint [facility] Presence of right artificial hip joint Outpatient Attender: BIANKA PETERS MD 03/12/2020 12:00:00 AM E [facility] Outpatient Attender: Pierre JOSHI [facility] 02/01/2020 09:30:00 AM EDT MEDENT (Family Medicine [facility]) Outpatient Attender: BIANKA PETERS MD 01/23/2020 12:00:00 AM E [facility] Outpatient Attender: Lux JOSHI 12/19/2019 12:00:00 AM EDT [facility] Outpatient Attender: BIANKA PETERS MD [id number] 0 12:00:00 AM EST - 10/17/2019 02:04:23 PM EST Presence of right artificial hip joint [facility] Presence of right artificial hip joint Outpatient Referrer: BIANKA PETERS MD 10/17/2019 12:00:0 0 AM EST Presence of right artificial hip joint [facility] Presence of right artificial hip joint Outpatient Attender: BIANKA PETERS MD [id number] 0 12:00:00 AM EST - 10/12/2019 07:51:28 AM EST Unilateral primary osteoarthritis, right [facility] Unilateral primary osteoarthritis, right hip Outpatient Referrer: BIANKA PETERS MD 09/19/2019 12:00:0 0 AM EST Unilateral primary osteoarthritis, right [facility] Unilateral primary osteoarthritis, right hip Outpatient Attender: BIANKA PETERS MD 09/12/2019 12:00:00 AM E [facility] Outpatient Attender: BIANKA PETERS MD 09/05/2019 12:00:00 AM E [facility] Outpatient Attender: Sumanth JOSHI [facility] 09/04/2019 01:40:00 PM EST MEDENT ([facility]) 08/31/2019 12:00:00 AM EST - 020 08:44:15 AM EST [facility] ([facility]) Inpatient Attender: BIANKA PETERS MDAdmitter: BIANKA PETERS MD [id number] 08/28/2019 12:00:00 AM EST - 08/30/2019 02:57:00 PM EST Unilateral primary osteoarthritis, right [facility] Unilateral primary osteoarthritis, right hip Patient discharged. Outpatient Attender: BIANKA PETERS MDReferrer: BIANKA PETERS MD 08/07/2019 12:00:00 AM EST - 08/08/2019 12:00:00 AM EST [facility] Outpatient Referrer: BIANKA PETERS MD 08/07/2019 12:00:0 0 AM EST Unilateral primary osteoarthritis, right [facility] Unilateral primary osteoarthritis, right hip Outpatient 08/07/2019 12:00:[address] [facility] Outpatient Attender: Pierre JOSHI [facility] 07/31/2019 10:00:00 AM EST MED[facility] ([facility]) Outpatient Referrer: BIANKA PETERS MD 06/29/2019 12:00:0 0 AM EST Pain in right [facility] Pain in right hip Immunizations Vaccine Date Status Description Data Source(s) INFLUENZA VACCINE QUADRIVALENT (65 YR UP)/MF59 C.1/PF 07/23/2020 12:00:00 AM EST completed [facility] VARICELLA-ZOSTER VIRUS GLYCOPROTEIN E,REC/AS01B ADJUVA NT/PF 07/23/2020 12:00:00 AM EST completed [facility] Medications Medication Brand Name Start Date Product Form Dose Route Admi nistrative Instructions Pharmacy Instructions Status Indications Reaction Description Data Source(s) 5 mg 08/21/2020 12:00:00 AM EST tablet 30 TAKE ONE TABLET BY MOUTH EVERY MORNING TAKE ONE TABLET BY MOUTH EVERY MORNING SOLD: 08/21/2020 [facility] Amlodipine 5 MG Oral Tablet Amlodipine Besylate 08/20/2020 12:00:00 A M EST ORAL completed [facility] ([facility]) 500 mg 01/31/2020 12:00:00 AM EDT tablet 4 TAKE FOUR TABLETS BY MOUTH 1 HOUR PRIOR TO DENTAL PROCEDURE TAKE FOUR TABLETS BY MOUTH 1 HOUR PRIOR TO DENTAL PROCEDURE SOLD: 02/10/2020 [facility] Amoxicillin 500 MG Oral Capsule Amoxicillin 500 MG Ora l Capsule (AMOXIL) Amoxicillin 500 MG Oral Capsule (AMOXIL) 01/29/2020 12:00:00 AM EDT active 4 pills by mouth 1 hour prior to procedure [facility] 500 mg 01/29/2020 12:00:00 AM EDT capsule 4 TAKE FOUR CAPSULES BY MOUTH 1 HOUR PRIOR TO DENTAL PROCEDURE TAKE FOUR CAPSULES BY MOUTH 1 HOUR PRIOR TO DENTAL PROCEDURE SOLD: 01/29/2020 [facility] Rosuvastatin calcium 5 MG Oral Tablet rosuvastatin (CR ESTOR) tablet 5 mg rosuvastatin (CRESTOR) tablet 5 mg 08/31/2019 09:00:00 AM EST 5 mg Oral active 5 mg, Oral, Twice We ekly, First dose on Yocasta 08/31/19 at 0900, For 30 days [facility] Medication administered onsite Aspirin 81 MG Oral Tablet Aspirin 81 MG Oral Tablet 08/31/2019 1 2:00:00 AM EST 81 mg Oral active Take 1 tablet by mouth daily [facility] Crestor 5 MG Crestor 08/31/2019 12:00:00 AM EST co mpleted [facility] ([facility]) Docusate Sodium 100 MG Docusate Sodium 08/31/2019 12:00:00 AM EST completed [facility] ([facility]) Fish Oil 875 MG Fish Oil 08/31/2019 12:00:00 AM EST completed [facility] ([facility]) Levothyroxine Sodium 75 MCG Levothyroxine Sodium 08/31/2019 12:00:00 AM EST completed [facility] ( [facility]) Losartan Potassium 50 MG Losartan Potassium 08/31/2019 12:00:00 AM EST completed [facility] ([facility]) Multivital Multivital 08/31/2019 12:00:00 AM EST c ompleted [facility] ([facility]) Osteo Bi-Flex Adv Joint Shield Osteo Bi-Flex Adv Joint Shiel d 08/31/2019 12:00:00 AM EST completed [facility] ([facility]) Aspirin 81 MG Aspirin 08/31/2019 12:00:00 AM EST c ompleted [facility] ([facility]) Acetaminophen Extra Strength 500 MG Acetaminophen Extra Stre ngth 08/31/2019 12:00:00 AM EST completed [facility] ([facility]) Calcium 600+D 600-400 MG-UNIT Calcium 600+D 08/31/2019 12:00:00 AM EST completed [facility] ([facility]) Losartan Potassium 25 MG Oral Tablet losartan (COZAAR) tablet 50 mg losartan (COZAAR) tablet 50 mg 08/30/2019 09:00:00 AM EST 50 mg Oral active 50 mg, Oral, Daily Standard, First dose (after last modification) on Wed08/30/19 at 0900, For 30 days
Check vital signs before administering
[facility] Medication administered onsite Acetaminophen 325 MG Oral Tablet Acetaminophen 325 MG Oral T ablet 08/30/2019 12:00:00 AM EST 650 mg Oral active Take 2 tablets by mouth every 6 (six) hours as needed (mild pain) for up to 10 days [facility] Oxycodone Hydrochloride 5 MG Oral Tablet oxyCODONE HCl 5 MG Oral Tablet (ROXICODONE) oxyCODONE HCl 5 MG Oral Tablet (ROXICODONE) 08/30/2019 12:00:00 AM EST Oral active Take 1-2 tablets by mouth every 4 (four) hours as needed (moderate to severe pain) for up to 7 days, Max Daily Dose: 8 tablets [facility] Docusate Sodium 100 MG Oral Capsule Docu sate Sodium 100 MG Oral Capsule (COLACE) Docusate Sodium 100 MG Oral Capsule (COLACE) 08/30/2019 12:00:00 AM EST 100 mg Oral active Take 1 cap ledy by mouth Two times daily as needed for Constipation for up to 10 days [facility] MAGNESIUM GLUCONATE 500 MG Oral Tablet m agnesium gluconate (MAGONATE) tablet TABS 500 mg magnesium gluconate (MAGONATE) tablet TABS 500 mg 08/16 09:00:00 AM EST 500 mg Oral active 500 mg, Oral, Daily Standard, First dose on Wed08/29/19 at 0900, For 30 days [facility] Medication administered onsite 0.4 ML Enoxaparin sodium 100 MG/ML Prefi lled Syringe enoxaparin sodium (LOVENOX) injection 40 mg enoxaparin sodium (LOVENOX) injection 40 mg 08/29/2019 09:00:00 AM EST 40 mg Subcutaneous active 40 mg, Subcutaneous, Daily Standard, First dose on Wed08/29/19 at 0900, For 30 days [facility] Medication administered onsite sodium chloride 0.9 % bolus 500 mL [id number] 08/29/2019 07:15:00 AM EST 500 mL Intravenous completed 500 mL, Intravenous, Once, Wed08/29/19 at 0715, For 1 dose [facility] Medication administered onsite Levothyroxine Sodium 0.075 MG Oral Table t levothyroxine (SYNTHROID, LEVOTHROID) tablet 75 mcg levothyroxine (SYNTHROID, LEVOTHROID) tablet 75 mcg 06:00:00 AM EST 75 ug Oral active 75 mcg, Oral, Daily at 0600, First dose on Wed08/29/19 at 0600, For 30 days [facility] Medication administered onsite sennosides, FCI 8.6 MG Oral Tablet senna 8.6 MG 2 tablet sen na 8.6 MG 2 tablet 08/28/2019 10:00:00 PM EST 2 {tbl} Oral active 2 tablet, Oral, Nightly, First dose on Wed08/28/19 at 2200, For 30 days [facility] Medication administered onsite sodium chloride 0.9 % bolus 500 mL [id number] 08/28/2019 09:15:00 PM EST 500 mL Intravenous completed 500 mL, Intravenous, Once, Wed08/28/19 at 2115, For 1 dose [facility] Medication administered onsite Docusate Sodium 100 MG Oral Capsule docusate sodium (C OLACE) capsule 100 mg docusate sodium (COLACE) capsule 100 mg 08/28/2019 09:00:00 PM EST 100 mg Oral active 100 mg, Oral, 2 Times Daily, First dose on Wed08/28/19 at 2100, For 30 days [facility] Medication administered onsite 2 ML Metoclopramide 5 MG/ML Prefilled Sy ringe metoclopramide (REGLAN) injection 10 mg metoclopramide (REGLAN) injection 10 mg 08/28/2019 06:08:[address] 10 mg Intravenous active 10 mg, I ntravenous, Every 6 hours PRN, Nausea, Starting Wed08/28/19 at 1808, For 30 days [facility] Medication administered onsite sodium chloride (preservative free) 0.9 % flush 3 mL 08/28/2019 05:00:00 PM EST 3 mL Intravenous active [Ord er 1 Start] Name: Peripheral IV Signed Summary: Routine, CONTINUOUS, Starting Wed08/28/19 at 1208, Until Wed09/27/19, For 30 days [Order 1 End] [Order 2 Start] Name: sodium chloride (preservative fr ee) 0.9 % flush 3 mL Signed Summary: 3 mL, Intravenous, Every 8 hours Standard (3 times per day), First dose on Wed08/28/19 at 1700, For 30 days
Saline Lock. Flush Q8H and after each use to Saline [facility].
[Order 2 End] [Order 3 Start] Name: sodium chloride (preservative free) 0.9 % flush 3 mL Signed Summary: 3 mL, Intravenous, PRN, Line Care, Starting Wed08/28/19 at 1207, For 30 days
Saline Lock. Flush Q8H and after each use to Saline Lock.
[Order 3 End] [Order 4 Start] Name: Saline Lock order Signed Summary: Routine, ONCE, Wed08/28/19 at 1208, For 1 occurrence [Order 4 End] [Order 5 Start] Name: NaCl infusion 0.9 % Signed Summary: at 0.2-10 mL/hr, Intravenous, PRN, For Meds, Starting Wed08/28/19 at 1207, For 30 days [Order 5 End] [Order 6 Start] Name: dextrose 5 % infusion Signed Summary: at 0.2-10 mL/hr, Intravenous, PRN, For Meds, Starting Wed08/28/19 at 1207, For 30 days [Order 6 End] [facility] Medication administered onsite Cefazolin 2000 MG Injection ceFAZolin (ANCEF) IVPB 2 g in dextrose (premix) ceFAZolin (ANCEF) IVPB 2 g in dextrose (premix) 08/28/2019 05:00:00 PM EST 2 g Intravenous completed 2 g, Int ravenous, Administer over 30 Minutes, Every 8 hours, First dose on Wed08/28/19 at 1700, For 2 doses [facility] Medication administered onsite Bisacodyl 10 MG Rectal Suppository bisacodyl (DULCOLAX ) suppository 10 mg bisacodyl (DULCOLAX) suppository 10 mg 08/28/2019 12:07:03 PM EST 10 mg Rectal active 10 mg, Rectal, Daily PRN, Constipation, Starting Wed08/28/19 at 1207, For 30 days [facility] Medication administered onsite Magnesium Hydroxide 80 MG/ML Oral Suspen silverio magnesium hydroxide (MILK OF MAGNESIA) 400 MG/5ML suspension 30 mL magnesium hydroxide (MILK OF MAGNESIA) 4 00 MG/5ML suspension 30 mL 08/28/2019 12:07:03 PM EST 30 mL Oral active 30 mL, Oral, Nightly PRN, Constipation, Starting Wed08/28/19 at 1207, For 30 days
If serum creatinine > 2 notify provider before administering.
[facility] Medication administered onsite Acetaminophen 325 MG Oral Tablet acetaminophen (TYLENO L) tablet 650 mg acetaminophen (TYLENOL) tablet 650 mg 08/28/2019 12:07:03 PM EST 65 0 mg Oral active 650 mg, Oral, E very 6 hours PRN, Mild Pain (Pain Scale Score 1- 3), Starting Wed08/28/19 at 1207, For 30 days
Maximum daily dose of acetaminophen is 3,000 mg from all sources in 24 hours.
[facility] Medication administered onsite Oxycodone Hydrochloride 5 MG Oral Tablet oxyCODONE (ROXICODONE) immediate release tablet 5 mg oxyCODONE (ROXICODONE) immediate release tablet 5 mg 08/28/2019 12:07:03 PM EST 5 mg Oral active 5 mg, Oral, Every 4 hours PRN, Moderate Pain (Pain Scale Score 4-6), Starting Wed08/28/19 at 1207, For 3 days
If no DISTRICT MANAGER POSTAL SERVICE or when DISTRICT MANAGER POSTAL SERVICE has been DC.
Oxycodone immediate release is limited to 10 mg per dose. Higher doses ( only) require Pain Service consultation and approval.
[facility] Medication administered onsite Oxycodone Hydrochloride 5 MG Oral Tablet oxyCODONE (ROXICODONE) immediate release tablet 10 mg oxyCODONE (ROXICODONE) immediate release tablet 10 mg 08/28/2019 12:07:03 PM EST 10 mg Oral active 10 mg, Oral, Every 4 hours PRN, Severe Pain (Pain Scale Score 7-10), or pre-painful procedure or activity, Starting Wed08/28/19 at 1207, For 3 days
If no DISTRICT MANAGER POSTAL SERVICE or when DISTRICT MANAGER POSTAL SERVICE has been DC.
Oxycodone immediate release is limited to 10 mg per dose. Higher doses ( only) require Pain Service consultation and approval.
[facility] Medication administered onsite fentaNYL (SUBLIMAZE) (PF) injection 25 mcg [id number] 08/28/2019 12:07:03 PM EST 25 ug Intravenous active 25 m cg, Intravenous, Every 2 hours PRN, breakthrough pain, Starting Wed08/28/19 at 1207, For 3 days [facility] Medication administered onsite metaxalone 800 MG Oral Tablet metaxalone (SKELAXIN) ta blet 800 mg metaxalone (SKELAXIN) tablet 800 mg 08/28/2019 12:07:03 PM EST 800 mg Oral active 800 mg, Oral, Three Times Daily-PRN, Mu scle spasms, Starting Wed08/28/19 at 1207, For 30 days [facility] Medication administered onsite ondansetron (ZOFRAN) injection 4 mg [id number] 08/28/2019 12:07:0 3 PM EST 4 mg Intravenous active 4 mg, In travenous, Every 6 hours PRN, Nausea, Vomiting, Starting Wed08/28/19 at 1207, For 30 days [facility] Medication administered onsite POLYETHYLENE GLYCOL 3350 142 MG/ML Oral Solution polyethylene glycol (MIRALAX) packet 17 g polyethylene glycol (MIRALAX) packet 17 g 08/28/2019 1 2:07:03 PM EST 17 g Oral active 17 g, Or al, Daily PRN, As needed for Constipation, Starting Wed08/28/19 at 1207, For 30 days
Mix in 8 ounces of water, juice or milk. Avoid use in patients who require thickened liquids due to potential increased risk for aspiration.
[facility] Medication administered onsite sodium phosphate 67.8 MG/ML / Sodium Kenan sphate, Monobasic 185 MG/ML Enema sodium phosphate (FLEET) enema (ADULT) 133 mL sodium phosphate (FLEET) enema (ADULT) 133 mL 08/28/2019 12:07:03 PM EST 133 mL Rectal active 133 mL, Rectal, Daily PRN, Constipation, Starting Wed08/28/19 at 1207, For 30 days [facility] Medication administered onsite NaCl infusion 0.9 % [id number] 08/28/2019 11:45:00 AM EST Intravenous active at 100 mL/hr, Intrav enous, Continuous, Starting Wed08/28/19 at 1145, For 30 days [facility] Medication administered onsite fentaNYL (SUBLIMAZE) (PF) injection 50 mcg [id number] 08/28/2019 11:19:53 AM EST 50 ug Intravenous aborted 50 m cg, Intravenous, Every 5 min PRN, Moderate Pain (Pain Scale Score 4-6), Starting Wed08/28/19 at 1119, For 4 doses, Recovery [facility] Medication administered onsite Calcium Chloride 0.0014 MEQ/ML / Potassi um Chloride 0.004 MEQ/ML / Sodium Chloride 0.103 MEQ/ML / Sodium Lactate 0.028 MEQ/ML Injectable Solution lactated ringers infusion lactated ringers infusion 08/28/2019 06:15:00 AM EST Intravenous aborted at 100 mL/hr, Intravenous, Continuous, Starting Wed08/28/19 at 0615, For 30 days
Keep Vein Open. Use Wide Tubing.
Pre-op [facility] Medication administered onsite gabapentin 100 MG Oral Capsule gabapentin (NEURONTIN) capsule 200 mg gabapentin (NEURONTIN) capsule 200 mg 08/28/2019 06:15:00 AM EST 200 mg Oral completed 200 mg, Oral, Once, Wed08/28/19 at 0615, For 1 dose, Pre-op [facility] Medication administered onsite bupivacaine (MARCAINE) 0.25 % 20 mL, morphine sulfate (PF) 1 0 mg syringe 08/28/2019 06:15:00 AM EST Infiltration complete d Infiltration, Once, Wed08/28/19 at 0615, For 1 dose, Pre-op [facility] Medication administered onsite Acetaminophen 325 MG Oral Tablet acetaminophen (TYLENO L) tablet 975 mg acetaminophen (TYLENOL) tablet 975 mg 08/28/2019 06:15:00 AM EST 97 5 mg Oral completed 975 mg, Oral, O nce, Wed08/28/19 at 0615, For 1 dose, Pre- op
Maximum daily dose of acetaminophen is 3,000 mg from all sources in 24 hours.
[facility] Medication administered onsite celecoxib 100 MG Oral Capsule celecoxib (CELEBREX) cap ledy 100 mg celecoxib (CELEBREX) capsule 100 mg 08/28/2019 06:15:00 AM EST 100 mg Oral completed 100 mg, Oral, Once, Wed08/28/19 at 0615, For 1 dose, Pre-op [facility] Medication administered onsite Aspirin 81 MG Oral Tablet Aspirin 81 MG Oral Tablet 81 mg Oral aborted Take 81 mg by mouth daily [facility] Insurance Providers Payer name Policy type / Coverage type Policy ID Covered democrat ID Covered democrat's relationship to delgado Policy Delgado Plan Information MEDICARE COMPLETE [id number] SP [id number] MEDICARE COMPLETE-[facility] O [id number] S [id number] [facility] MEDICARE COMPLETE G [id number] Self [id number] [facility] MEDICARE COMPLETE G [id number] Self [id number] [facility] ([facility]) Commercial [id number] Self [id number] [employer] U/W Commercial [id number] Self [id number] [employer] U/W Commercial [id number] Self [id number] [facility] Medicare Solutions Medigap Part B [id number] Self [id number] [employer] U/W Commercial [id number] Self [id number] [employer] U/W Commercial [id number] Self [id number] MEDICARE COMPLETE [id number] SP [id number] MEDICARE COMPLETE [id number] SP [id number] MEDICARE COMPLETE [id number] SP [id number] [place] [place] [id number] SP DZVA [id number] [facility]) Commercial [id number] Self [id number] MEDICARE COMPLETE-UHC O [id number] S [id number] [facility]) Commercial [id number] Self [id number] [facility]) Commercial [id number] Self [id number] MEDICARE COMPLETE [id number] SP [id number] [facility]) Commercial [id number] Self [id number] [facility] [employer] Medigap Part B [id number] Self [id number] [employer] Commercial [id number] Self [id number] [employer] Commercial [id number] Self [id number] [facility] [employer] Medigap Part B [id number] Self [id number] [employer] Commercial [id number] Self [id number] [employer] U[employer] Commercial [id number] Self [id number] MEDICARE COMPLETE-UHC O UNAVAILABLE S UNAVAILABLE [facility] Medicare Solutions Medigap Part B [id number] Self [id number] [employer] Commercial [id number] Self [id number] [employer] Commercial [id number] Self [id number] [employer] U[employer] Commercial [id number] Self [id number] [employer] [place] [id number] SP [id number] [id number] [place]/307 [id number] SP [id number] [place] [place]/307 [id number] SP [id number] [employer]BS [employer] U/W Medigap Part B [id number] Family Dependent [id number] [place] [employer] P[place] Commercial [id number] Family Dep endent [id number] [facility] U/W Commercial [id number] Self [id number] [place] P[place] 302/307 [id number] SP [id number] [facility] U/W Commercial Self [place] 332/834 [id number] SP [id number] Problems, Conditions, and Diagnoses Code Display Name Description Problem Type Effective Dates Data Source(s) J45.909 Unspecified asthma, uncomplicated Unspecified as thma, uncomplicated Problem 08/30/2019 12:00:00 AM EST [facility] ([facility]) Z91.81 History of falling History of falling Problem 0 12:00:00 AM EST [facility] ([facility]) 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 intermediate accountant (cu rrent) use of aspirin Problem 08/30/2019 12:00:00 AM EST [facility] ([facility]) Z96.641 Presence of right artificial hip joint P resence of right artificial hip joint Problem 08/30/2019 12:00:00 AM EST [facility] ([facility]) M15.0 Primary generalized (osteo)arthritis Primary gen eralized (osteo)arthritis Problem 08/09/2019 12:00:00 AM EST [facility] ([facility]) Z47.1 Aftercare following joint replacement sales rgery Aftercare following joint replacement surgery Problem 08/09/2019 12:00:00 AM EST [facility] ([facility]) Z96.641 Presence of right artificial hip joint P resence of right artificial hip joint Diagnosis 04/03/2020 09:08:49 AM EDT [facility] M16.11 Unilateral primary osteoarthritis, right hip Unilateral primary osteoarthritis, right hip Diagnosis 08/28/2019 11:35:36 AM EST [facility] M16.9 Osteoarthritis of hip, unspecified Osteoarthriti s of hip, unspecified Diagnosis 08/28/2019 05:40:[address] [facility] OA (osteoarthritis) of hip OA (osteoarthritis) of hip Diagnosis 08/28/2019 05:40:[address] [facility] Primary osteoarthritis of right hip [M16 .11] Primary osteoarthritis of right hip [M16.11] Diagnosis 08/28/2019 05:40:00 AM [facility] Surgeries/Procedures Procedure Description Date Indications Data Source(s) Electrocardiogram Complete 09/04/2019 12:00:00 AM [facility] ([facility]) POCT GLUCOSE, DOCKED POCT GLUCOSE, DOCKED Routine 08/30/2019 11:49 AM EST 08/30/2019 04:49:[address] [facility] POCT GLUCOSE, DOCKED POCT GLUCOSE, DOCKED Routine 08/30/2019 8:01 AM EST 08/30/2019 01:01:[address] [facility] BLOOD COUNT COMPLETE AUTOMATED CBC Routine 08/30/2019 5:01 A M EST 08/30/2019 10:01:[address] [facility] GLUCOSE QUANTITATIVE BLOOD XCPT REAGENT STRIP POCT GLUCOSE, DOC KED Routine 08/29/2019 9:41 PM EST 08/30/2019 02:41:[address] [facility] GLUCOSE QUANTITATIVE BLOOD XCPT REAGENT STRIP POCT GLUCOSE, DOC KED Routine 08/29/2019 4:37 PM EST 08/29/2019 09:37:[address] [facility] GLUCOSE QUANTITATIVE BLOOD XCPT REAGENT STRIP POCT GLUCOSE, DOC KED Routine 08/29/2019 12:21 PM EST 08/29/2019 05:21:[address] [facility] GLUCOSE QUANTITATIVE BLOOD XCPT REAGENT STRIP POCT GLUCOSE, DOC KED Routine 08/29/2019 8:35 AM EST 08/29/2019 01:35:[address] [facility] HEPATITIS C ANTIBODY HEPATITIS C ANTIBODY Routine 08/29/2019 5:45 AM EST 08/29/2019 10:45:[address] [facility] BLOOD COUNT COMPLETE AUTOMATED CBC Routine 08/29/2019 5:45 A M EST 08/29/2019 10:45:[address] [facility] BASIC METABOLIC PANEL CALCIUM TOTAL BASIC METABOLIC PANEL Routi ne 08/29/2019 5:45 AM EST 08/29/2019 10:45:00 AM [facility] GLUCOSE QUANTITATIVE BLOOD XCPT REAGENT STRIP POCT GLUCOSE, DOC HARLEEN Routine 08/28/2019 9:04 PM EST 08/29/2019 02:04:[address] [facility] GLUCOSE QUANTITATIVE BLOOD XCPT REAGENT STRIP POCT GLUCOSE, LOGAN CANSECO Routine 08/28/2019 4:56 PM EST 08/28/2019 09:56:[address] [facility] GLUCOSE QUANTITATIVE BLOOD XCPT REAGENT STRIP POCT GLUCOSE, LOGAN CANSECO Routine 08/28/2019 12:21 PM EST 08/28/2019 05:21:[address] [facility] RADIOLOGIC EXAMINATION PELVIS 1/2 VIEWS XR PELVIS 1-2 VIEWS 721 70 Routine 08/28/2019 11:53 AM EST 08/28/2019 04:53:[address] [facility] LEVEL I SURG PATHOLOGY GROSS EXAMINATION ONLY SURGICA L PATHOLOGY EXAM ([facility] ONLY) Routine 08/28/2019 11:10 AM EST 08/28/2019 04:10:[address] [facility] [id number] ARTHROPLASTY, ACETABULAR/PROXIMAL FEMORAL PROSTHETIC REPLACEMENT, W/WO AUTOGRAFT/ALLOGRAFT [id number] ARTHROPLASTY, ACETABULAR/PROXIMAL FEMORAL PROSTHETIC REPLACEMENT, W/WO AUTOGRAFT/ALLOGRAFT 08/28/2019 9:27 AM ES T Primary osteoarthritis of right hip 08/28/2019 02:27:0 0 PM EST - 08/28/2019 04:58:00 PM EST Primary osteoarthritis of right hip [facility] Primary osteoarthritis of right hip US GUIDED PERIPHERAL NERVE BLOCK (OR ONLY) US GUIDED PERIPHERAL NERVE BLOCK (OR ONLY) Routine 08/28/2019 7:38 AM EST 08/28/2019 12:38 :[address] [facility] GLUCOSE QUANTITATIVE BLOOD XCPT REAGENT STRIP POCT GLUCOSE, LOGAN CANSECO Routine 08/28/2019 6:55 AM EST 08/28/2019 11:55:[address] [facility] BLOOD TYPING ABO TYPE AND SCREEN Routine 08/07/2019 11:46 AM EST Preop examination 08/07/2019 04:46:00 PM EST Preop examination U [facility] Preop examination Electrocardiogram Complete 07/31/2019 12:00:00 AM EST [facility] ([facility] Medicine [facility]) Results ID Date Data Source [id number] 09/11/2020 12:00:00 AM EST [facility] ology Imaging Rosie Lucas Bond DO Patient Name: VINAY [id number] Date of : 1950 3 [facility]: [facility] [place] [id number] Fax: [phone] EXAM: CT ANGIOGRAPHY, CHESTCLINICAL INFORMATION: Chest pain an dyspnea. Assess for pulmonaryarterial or aortic abnormality.Low dose 64 slice contrast enhanced helical CT examination of the chest wasobtained using the pulmonary angio protocol with 1.5 mm thick incrementsalong with standard 3 mm thick increments through the whole chest.Sagittal, coronal, and bilateral arterial oblique reconstructions wereobtained with post processing at the physicians workstation when necessary. Contrast utilized 100 cc of Optiray 350.There is less than optimal opacification of the pulmonary arterialvasculature or the thoracic aorta. This is secondary to injection timing.There is evidence of mediastinal and hilar adenopathy. There are nopleural or pericardial effusions. The imaged upper abdomen is withinnormal limits. The imaged osseous structures are within normal limits.There is an incidental thoracic vertebral body hemangioma.There is no evidence of a gross first or second order pulmonary arterialembolus. Small emboli cannot be ruled out by this exam. There is noevidence of a gross thoracic aortic abnormality.Evaluation of the lung herr shows a left lower lobe spiculated noduleseen in the superior segment measuring 7 mm. There is a right upper lobespiculated nodule in the posterior segment which measures 1.3 cm. Seenjust lateral to that, there is a small 4 mm sized nodule. In the anteriorsegment of the right upper lobe, there is a small asymmetric nodule whichmeasures 8 mm. In the right lung apex, there is an asymmetric 7 mm sizednodule. Just inferomedial to that, there is a 5 mm sized nodule. Seen inthe medial aspect of the superior segment of the right lower lobe abuttingthe major fissure, there is an 8 mm sized nodule. In the apical posteriorsegment of the left upper lobe, there is a 5 mm sized nodule. In theanterior segment of the left upper lobe, there is an 8 mm sized nodule.IMPRESSION:1. Injection timing limits optimal evaluation of the pulmonary arterialsystem and thoracic aorta as described above. Pulmonary emboli cannot beruled out secondary to this. No gross arterial abnormalities areidentified as described above.2. There is mediastinal and hilar adenopathy with no prior CT forcomparison. Etiology uncertain. Infectious vs. neoplastic etiology.Followup is recommended. Multiple asymmetric lung nodules as describedabove. With no priors for comparison, etiology uncertain. Neoplastic vs.infectious etiology. According to the revised Fleischner Society criteria,PET CT is in order at this time.3. Other findings as described above.Accredited by the [employer] in [place].KOFFI Mckenna/Nohelia you for referring KEY SANZ to our office. Electronically Signed - DENISE JOLLY DO 09/11/20 17:26 Name Value Range Interpretation Code Description Data Sherron rce(s) Supporting Document(s) ID Date Data Source [id number] 09/09/2020 09:00:00 AM EST [facility] ([facility]) Name Value Range Interpretation Code Description Data Sherron rce(s) Supporting Document(s) Fibrin D-dimer FEU [Mass/volume] in Platelet poor plasma 519.01 ng/mL Above high normal [facility] ([facility]) ID Date Data Source [id number] 09/09/2020 09:00:00 AM EST [facility] ([facility]) Name Value Range Interpretation Code Description Data Sherron rce(s) Supporting Document(s) HDL Cholesterol 68 mg/dL Normal (applies to non-numeric results) [facility] ([facility]) Triglycerides Level 68 mg/dL Normal (applies to non-nume patricia results) [facility] ([facility]) Cholesterol Level 307 mg/dL Above high normal [facility] ([facility]) LDL Cholesterol 225 mg/dL Above high normal [facility] ([facility]) Non-HDL-C 239 mg/dL Normal (applies to non-numeric resul ts) [facility] ([facility]) Cholesterol Risk Ratio 4.514 Normal (applies to non-n umeric results) [facility] ID Date Data Source [id number] 09/09/2020 09:00:00 AM EST [facility] ([facility]) Name Value Range Interpretation Code Description Data Sherron rce(s) Supporting Document(s) Estimated Average Glucose 108 mg/dL 60-110 Normal (applies to non-numeric results) [facility] ([facility]) Hemoglobin A1c 5.4 % Normal (applies to non-numeric r esults) [facility] ([facility]) <content>REFERENCE RANGES:</content><br/ ><content></content>
<content><=5.6% NORMAL</content>
<content>5.7-6.4% SUGGESTS IMPAIRED GLUCOSE METABOLISM/PREDIABETIC</content>
<content>>= 6.5% ABNORMAL</content>
<content></content> ID Date Data Source [id number] 09/09/2020 09:00:00 AM EST [facility] ([facility]) Name Value Range Interpretation Code Description Data Sherron rce(s) Supporting Document(s) Creatinine For GFR 0.83 mg/dL 0.55-1.30 Normal (applies to non -numeric results) [facility] ([facility]) Glucose, Fasting 110 mg/dL 70-100 Above high normal [facility] ([facility]) Blood Urea Nitrogen 16 mg/dL 7-18 Normal (applies to non-nume patricia results) [facility] Sodium Level 139 meq/L 136-145 Normal (applies to non-numeric res ults) [facility] ([facility]) Potassium Serum 4.9 meq/L 3.5-5.1 Normal (applies to non-numeric results) [facility] ([facility]) Glomerular Filtration Rate Laboratory test result Normal (applies to non- numeric results) [facility] ([facility]) <content>Units are mL/min/1.73 m2</content>
<content></content>
<content>Chronic Kidney Disease Staging per NKF:</content>
<content></content>
<content>Stage I & II GFR >=60 Normal to Mildly Decreased</content>
<content>Stage III GFR 30- 59 Moderately Decreased</content>
<content>Stage IV GFR 15-29 Severely Decreased</content>
<content>Stage V GFR <15 Very Little GFR Left</content>
<content>ESRD GFR <15 on MUCK OPERATOR</content>
<content></content> Chloride Level 105 meq/L 98-107 Normal (applies to non-numeric r esults) [facility] ([facility]) Carbon Dioxide Level 30 meq/L 21-32 Normal (applies to non-num davonte results) [facility] ([facility]) Calcium Level 10.0 mg/dL 8.8-10.2 Normal (applies to non-numeric re sults) [facility] ([facility]) Anion Gap 4 meq/L 8-16 Below low normal [facility] Ast/Sgot 5 U/L 7-37 Below low normal [facility] Alkaline Phosphatase 39 U/L 45-117 Below low normal [facility] Alt/SGPT 16 U/L 12-78 Normal (applies to non-numeric resul ts) [facility] ([facility]) Bilirubin,Total 0.5 mg/dL 0.2-1.0 Normal (applies to non-numeric results) [facility] ([facility]) Total Protein 6.7 GM/DL 6.4-8.2 Normal (applies to non-numeric re sults) [facility] ([facility]) Albumin 3.8 GM/DL 3.2-5.2 Normal (applies to non-numeric resul ts) [facility] ([facility]) Albumin/Globulin Ratio 1.3 1.2-2.2 Normal (applies to non-n umeric results) [facility] ([facility]) ID Date Data Source [id number] 09/09/2020 09:00:00 AM EST [facility] ([facility]) Name Value Range Interpretation Code Description Data Sherron rce(s) Supporting Document(s) Thyroid Stimulating Hormone 0.387 uIU/ML 0.358-3.740 Norm al (applies to non- numeric results) [facility] ([facility]) Free T4 1.46 ng/dL 0.76-1.46 Normal (applies to non-numeric resul ts) [facility] ([facility]) ID Date Data Source [id number] 09/09/2020 09:00:00 AM EST [facility] ([facility]) Name Value Range Interpretation Code Description Data Sherron rce(s) Supporting Document(s) Calcidiol [Mass/volume] in Serum or Plasma 67.0 ng/mL 30.0- 100.0 Normal (applies to non-numeric results) [facility] ([facility]) ID Date Data Source [id number] 09/09/2020 09:00:00 AM EST [facility] ([facility]) Name Value Range Interpretation Code Description Data Sherron rce(s) Supporting Document(s) White Blood Count 4.8 10 4.0-10.0 Normal (applies to non-numeri c results) [facility] ([facility]) Hemoglobin 13.8 g/dL 12.0-15.5 Normal (applies to non-numeric resul ts) [facility] ([facility]) Red Blood Count 4.51 10 4.00-5.40 Normal (applies to non-numeric results) [facility] ([facility]) Mean Corpuscular Hemoglobin 30.6 pg 27.0-33.0 Norm al (applies to non-numeric results) [facility] ([facility]) Hematocrit 41.8 % 36.0-47.0 Normal (applies to non-numeric resul ts) [facility] ([facility]) Mean Corpuscular Volume 92.7 fl 80.0-96.0 Normal ( applies to non-numeric results) [facility] ([facility]) Red Cell Distribution Width 14.5 % 11.5-14.5 Norm al (applies to non-numeric results) [facility] ([facility]) Platelet Count, Automated 256 10 150-450 Normal (applies to non-numeric results) [facility] ([facility]) Mean Corpuscular HGB Conc 33.0 g/dL 32.0-36.5 Normal (applies to non-numeric results) [facility] ([facility]) Lymph % 32.6 % 24.0-44.0 Normal (applies to non-numeric resul ts) [facility] ([facility]) Neutrophils % 54.2 % 36.0-66.0 Normal (applies to non-numeric re sults) [facility] ([facility]) Gillespie % 8.9 % 0.0-5.0 Above high normal [facility] ([facility]) Eos % 3.1 % 0.0-3.0 Above high normal [facility] ([facility]) Immature Granulocyte % 0.2 % 0-3.0 Normal (applies to non-n umeric results) [facility] ([facility]) Baso % 1.0 % 0.0-1.0 Normal (applies to non-numeric resul ts) [facility] ([facility]) Lymph # 1.6 10 1.5-5.0 Normal (applies to non-numeric resul ts) [facility] ([facility]) Nucleated Red Blood Cell % 0.0 % 0-0 Normal (applies to n on-numeric results) [facility] ([facility]) Neutrophils # 2.6 10 1.5-8.5 Normal (applies to non-numeric re sults) [facility] ([facility]) Eos # 0.2 10 0.0-0.5 Normal (applies to non-numeric resul ts) [facility] ([facility]) Baso # 0.1 10 0.0-0.2 Normal (applies to non-numeric resul ts) [facility] ([facility]) Gillespie # 0.4 10 0.0-0.8 Normal (applies to non-numeric resul ts) [facility] ([facility]) ID Date Data Source [id number] 08/20/2020 02:36:00 PM EST [facility] ([facility]) Name Value Range Interpretation Code Description Data Sherron rce(s) Supporting Document(s) Respiratory Panel Laboratory test result [facility] ([facility]) This respiratory PCR panel detects Influ patria A H1, H3 and 2009 H1 viruses, Influenza B virus, Resp iratory Syncytial Virus, Human metapneumovirus, Parainfluenza virus 1, 2, 3 and 4, Adenovirus, Rhinovirus/Enterovirus, Coronavirus HKU1, NL63, OC43, 229E and SARS-CoV-2 (COVID 19), Bordetella pertussis, Bordetella parapertussis, Mycoplasma pneumoniae and Chlamydia pneumoniae. POSITIVE by MULTIPLEXED NUCLEIC ACID PCR SARS-CoV-2 (COVID 19) POSITIVE - SARS-CoV-2 (COVID19) ORGANISM 1: SARS-CoV-2 (COVID 19) ID Date Data Source [id number] 08/20/2020 02:36:00 PM EST [facility] Name Value Range Interpretation Code Description Data [facility] rce(s) Supporting Document(s) Respiratory pathogens identified [Type] in Nasopharynx by Probe and target amplification method SARS-CoV-2 (COVID 19) [facility] [place] This lab was ordered by [facility] a nd reported by [facility]. ID Date Data Source [id number] 04/04/2020 07:18:57 AM EDT [facility] XR HIP- UNILAT, 2-3 VIEWS [id number] RE SULTInterpreted by:SCOUT WrightVIS AND RIGHT HIPCLINICAL STATEMENT: Status post right hip arthroplasty. Follow-up.TECHNIQUE: 3 views of the pelvis and right hip.COMPARISON: 09/19/2019.FINDINGS: Since the prior study, there has been no significant interval change.The patient is status post total right hip arthroplasty. The hardware appears intact and properly aligned. No acute periprosthetic fracture or dislocation is identified.IMPRESSION: Since 09/19/2019, No significant interval change.Status post total right hip arthroplasty, with stable postoperative changes.This document has been electronically signed by Bossman Carr MD on 04/04/2020 7:16 AM Name Value Range Interpretation Code Description Data Sherron rce(s) Supporting Document(s) ID Date Data Source [id number] 04/03/2020 10:05:57 AM EDT [facility] Name Value Range Interpretation Code Description Data Sherron rce(s) Supporting Document(s) Progress Note [facility] PEGWAm6hRbYKMsKe59/GAXpwQTTtp7FrLFuwBUb8IPalUYZiP7WdNHU7fJ9zSWS5QFtTCrWtLyLcGEL2 lbm [file] DQogICAgICAgICAgICAgICAgICAgICAgICAgICAgICAgICAgICAgICAgICAgICAgICAgICAgICAgICAg ICAgICAgICAgICAgICAgICAgICAgICAgICAgICAgIC AgICAgICAgICAgDQogICAgICAgICAgICAgICAgICAgICAgICAgICAgICAgICAgICAgICAgICAgICAgIC AgICAgICAgICAgICAgICAgICAgICAgICAgICAgICAgICAgICAgICAgICAgICAgICAgICAgDQogICAgIC AgICAgICAgICAgICAgICAgICAgICAgICAgICAgICAg ICAgICAgICAgICAgICAgICAgICAgICAgICAgICAgICAgICAgICAgICAgICAgICAgICAgICAgICAgICAg ICAgDQogICAgICAgICAgICAgICAgICAgICAgICAgICAgICAgICAgICAgICAgICAgICAgICAgICAgICAg ICAgICAgICAgICAgICAgICAgICAgICAgICAgICAgIC AgICAgICAgICAgICAgDQogICAgICAgICAgICAgICAgICAgICAgICAgICAgICAgICAgICAgICAgICAgIC AgICAgICAgICAgICAgICAgICAgICAgICAgICAgICAgICAgICAgICAgICAgICAgICAgICAgICAgDQogIC AgICAgICAgICAgICAgICAgICAgICAgICAgICAgICAg ICAgICAgICAgICAgICAgICAgICAgICAgICAgICAgICAgICAgICAgICAgICAgICAgICAgICAgICAgICAg ICAgICAgDQogICAgICAgICAgICAgICAgICAgICAgICAgICAgICAgICAgICAgICAgICAgICAgICAgICAg ICAgICAgICAgICAgICAgICAgICAgICAgICAgICAgIC AgICAgICAgICAgICAgICAgDQogICAgICAgICAgICAgICAgICAgICAgICAgICAgICAgICAgICAgICAgIC AgICAgICAgICAgICAgICAgICAgICAgICAgICAgICAgICAgICAgICAgICAgICAgICAgICAgICAgICAgDQ ogICAgICAgICAgICAgICAgICAgICAgICAgICAgICAg ICAgICAgICAgICAgICAgICAgICAgICAgICAgICAgICAgICAgICAgICAgICAgICAgICAgICAgICAgICAg ICAgICAgICAgDQogICAgICAgICAgICAgICAgICAgICAgICAgICAgICAgICAgICAgICAgICAgICAgICAg ICAgICAgICAgICAgICAgICAgICAgICAgICAgICAgIC BbRPMiFTFgJOWnXDPlQEAwDFKnFJd7Y7bhPCBeZEKiBO0gTSd5Re8+GWbWKnUnRTF0lmGpmS5XOQ8vq2 WoGXuiBPUrf5DjOOi9TJ9PMXJmSGfjAS8QLQvdld9TPMAsDPEawLHKj7ncSpDkPLH7ZKGjFaaxZT0YHI AsK2pltxFwREYuMMIVJMapSQRLOH9XRfWlZ8NhzF43 IDINCj4+PFgqbcKbPggSGkMsNVYva7HoJTq2FR8GQQDzKjtua0HyFWVhJKSWYPltHT7VYOR3WBBfRMJu Cb6KBPFmG952lzUfHH9EGu7FWuAgHD8vzp8AVJXqKUVfLwpXBto0SWrsHD1EgWDzIVbNmj2tvjFicoHK e6PprkCfaQMLIG6rPDfcNIC8kPOmEorqp6vjwvsnEN GuTRGzFI7eYA5bNSMdDCF0EwBlNFNGOE4ODMAiREHzcDGfJPKxOPGIJZ9QNWfkIQU6KNWpomWjtGUyRC cfUW2MVVVwlfLvXMPkPIKLQYs+Bx6TID4oh1BlSWd9UpTmLZ7cmh2YHLxGMsGhQ6X0bIGtZ2R9DOcrRx 1BMJUaWMLkWvmhAWDDEQawQC6IQK6yaxC6GD5BoLUa KENsOXDztFDmUFx8M65upINgOYemPF0VEDW+Marcia+Fy3DBJCkCFUtAFGhKzDmKURJSnCsD3UoY8WWt1Sh X5WjJQ37gLkogvXjPAyoKS5SOV2zTEZdJZYUDS8AcIBrsX3glkT1EPHaWTJCInIuA00bzWDmCEZvGUF2 YKBqZt6YNERpX7ZzqkHycQbnsyNfDBGwIEJQWO0TGX yzprMwlGFxrWpuBJ43mYhdKD4XAe1VKkAaQS5cdh2ArUGhRk5CBHB9Sj7COUUuHEKfWALyWFT8TKRsDc BuLWlmAJSmBNSuBWJ8QIAhKQSgIZ4NThAeFJNwIMg2VSQaUYVsVGOkri7DWAFrNAR6WLGeTQNiTGZrEQ PwJEpkRWEvALHtEGS7YBTrOLEjAL9IBpVpGQSpTRH3 UUEeBQTyTLFtsl2IJLRlQCEfZSH4ZPYpSKJpMRHnUBacVCSwSIN5Vrt8EUEtSHUjGR8JFdVfSWBtVOH8 JTFyYQLfLARnvr5SSWTcFMDeAZc8CJJqQIPjQAEuERqpBHMrDCV2TTX5PGJvVQUdMS7AHyIiFVCeZVTt WzhfCMGdXISlgg9XQUPhJBKuYqN3RhDlJRBjPWGfII mxMIPsTKV2Hty6AUSeYHWsFP2TLmSkWLQrCKv6BUYsKSGtIZWpnt6GYDRoTSQvSFd9YKWaLTIyCPBoZB mcZKPxQDZ9YhU5CWZxZBZdPL8SAhIlDDXfYIl5BtYaLLNsNAEdrn0APAQtIMCwMUajLjMnHHCiACTwLH bdOMGxYLQ6RYQmEZIcRYPdXP8QVgXgVOWjMmO5NEAx WILrKCRknw7EJOFaYWJhHHy9AUWvXGKzJIBvQJiaNZKnCIUlUBO3RHSnMPIrLU1KWrYsMSWwQnYzXLJh BSHcSIArlz4JYUNpEYPoZiA0YiMcOKVrVCHvPLkrUYUxHMDzQMWsJLBtSYQkZW7KYnOlONScNIS0LXna XAJzZZMaye9LXFWfLVW3GUQhUCOeZPIaDCDsTIyeCB QaLLUjOLIlZYTcBGIpKQ4QRkBbXRYeWVU4JLKbTBYnWONdtu5XDLDkWXE0CWd0OUFkNVWtIXXoCIseCR UvXWZ8ZJL9KXRpIBTjPQ8OFrIsTGOkAJibZcWeEAZfCBQvzl1XNOEcTBB1MxG0LbTgPQLsFBWfKYhoMI QjGXW6QpD4NNXmPTBqBL2MIdLbDQRtVQg4FVEnSHWj PBCrol9MNHObAIC3FFPjHzKmBWQgRFJoWPjdERKuKEM9DiUzEVIvCTMcFY1QMoNhYPOrZJudKQmwQBLa SVHrgk4DGEWjRWB8RXt6TLTjSIDfKMEdOQxsJDPsINChApZ4BHAwWARdFT1SZpGoKQEcGYQiHRSlXJGk USPnsq4AIOWyMHZ1QCU7MFQbCTVwSGWsGPe1jdHnuH UuYDp6LO7QE1EtefRdGQIWRo2Qt702UAImHOWwLe1RN8eiFb5bQRVnRSKYAh4OEBc1TGBqNcXeKMX3Ji KhCbMbKiUwIbK4QhMlMAjbFpYtQZG+RTu7SRCpLEWyBaA5KlKnXsK6OGMrPVdeRCYoBwBtMdWnZf5sOR ANCj4+IQyqpIFzaXzuVERABaUsByy4CLwgTROXZu0K ID Date Data Source [id number] 01/31/2020 08:52:00 AM EDT [facility] ([facility]) Name Value Range Interpretation Code Description Data Sherron rce(s) Supporting Document(s) Thyroid Stimulating Hormone 0.573 uIU/ML 0.358-3.740 Norm al (applies to non- numeric results) [facility] ([facility]) Free T4 1.20 ng/dL 0.76-1.46 Normal (applies to non-numeric resul ts) [facility]) ID Date Data Source [id number] 01/31/2020 08:52:00 AM EDT [facility] ([facility]) Name Value Range Interpretation Code Description Data Sherron rce(s) Supporting Document(s) Calcidiol [Mass/volume] in Serum or Plasma 46.8 ng/mL 30.0- 100.0 Normal (applies to non-numeric results) [facility] ([facility]) ID Date Data Source [id number] 01/31/2020 08:52:00 AM EDT [facility] ([facility]) Name Value Range Interpretation Code Description Data Sherron rce(s) Supporting Document(s) Hemoglobin A1c 6.7 % Normal (applies to non-numeric r esults) [facility] ([facility]) REFERENCE RANGES: 4.5-5.6% NORMAL 5.7-6.4% SUGGESTS IMPAIRED GLUCOSE META BOLISM >= 6.5% ABNORMAL Estimated Average Glucose 146 mg/dL 60-110 Above high normal [facility] ([facility]) ID Date Data Source [id number] 01/31/2020 08:52:00 AM EDT [facility] ([facility]) Name Value Range Interpretation Code Description Data Sherron rce(s) Supporting Document(s) Glucose, Fasting 104 mg/dL 70-100 Above high normal [facility]) Blood Urea Nitrogen 16 mg/dL 7-18 Normal (applies to non-nume patricia results) [facility] ([facility]) Glomerular Filtration Rate Laboratory test result Normal (applies to non- numeric results) [facility] ([facility]) <content>Units are mL/min/1.73 m2</content>
<content></content>
<content>Chronic Kidney Disease Staging per NKF:</content>
<content></content>
<content>Stage I & II GFR >=60 Normal to Mildly Decreased</content>
<content>Stage III GFR 30- 59 Moderately Decreased</content>
<content>Stage IV GFR 15-29 Severely Decreased</content>
<content>Stage V GFR <15 Very Little GFR Left</content>
<content>ESRD GFR <15 on MUCK OPERATOR</content>
<content></content> Creatinine For GFR 0.63 mg/dL 0.55-1.30 Normal (applies to non -numeric results) [facility] ([facility]) Sodium Level 139 meq/L 136-145 Normal (applies to non-numeric res ults) [facility] ([facility]) Chloride Level 107 meq/L 98-107 Normal (applies to non-numeric r esults) [facility] ([facility]) Potassium Serum 5.0 meq/L 3.5-5.1 Normal (applies to non-numeric results) [facility] ([facility]) Carbon Dioxide Level 28 meq/L 21-32 Normal (applies to non-num davonte results) [facility] ([facility]) Calcium Level 9.1 mg/dL 8.8-10.2 Normal (applies to non-numeric re sults) [facility] ([facility]) Anion Gap 4 meq/L 8-16 Below low normal [facility] ( [facility]) Ast/Sgot 22 U/L 7-37 Normal (applies to non-numeric resul ts) [facility] ([facility]) Alt/SGPT 29 U/L 12-78 Normal (applies to non-numeric resul ts) [facility] ([facility]) Alkaline Phosphatase 44 U/L 45-117 Below low normal [facility] ([facility]) Bilirubin,Total 0.6 mg/dL 0.2-1.0 Normal (applies to non-numeric results) [facility] ([facility]) Total Protein 6.5 GM/DL 6.4-8.2 Normal (applies to non-numeric re sults) [facility] ([facility]) Albumin/Globulin Ratio 1.3 1.2-2.2 Normal (applies to non-n umeric results) [facility] ([facility]) Albumin 3.7 GM/DL 3.2-5.2 Normal (applies to non-numeric resul ts) [facility] ([facility]) ID Date Data Source [id number] 10/30/2019 10:46:42 PM EDT [facility] Name Value Range Interpretation Code Description Data Sherron rce(s) Supporting Document(s) Progress Note [facility] HMFWRb1fYlKGLtQf87/OWShcNKLax9GyWSchWOs6EEyxWOWbE1KdGTC0vC7eUTC9GIwFWwAySmXtJfW9 [facility] [file] AgICAgICAgICAgICAgICAgICAgICAgICAgICAgICAgICAgICAgICAgICAgICAgICAgICAgICAgICAgIC MvHDCpAJXqGBHnFWOdRITkBJViXXWpXLDeVH7RTZIwWSKdVYMyGJFhTZYgHDGuWIWsUIWbHQMvZZEqJT AgICAgICAgICAgICAgICAgICAgICAgICAgICAgICAg EGCkENBzHNDwWQSsKWYuTRCtBFGiGEIhOZNyZVSlUBYkBUGiWQ9KGBNoJDLrABDwYNRuGHQdFSJtICVp ICAgICAgICAgICAgICAgICAgICAgICAgICAgICAgICAgICAgICAgICAgICAgICAgICAgICAgICAgICAg PCFuNHTkBAAzVLAuFXHtUCWkEK3AQMQsNZPjGMPiPY AgICAgICAgICAgICAgICAgICAgICAgICAgICAgICAgICAgICAgICAgICAgICAgICAgICAgICAgICAgIC KcDABsAHVuOMIoYHQzAYIrYUCeNWZzKDMiXZMiAR8AKABoQBBjACDhSQZqMTClQVHlUHCvHVZgJTRuQM AgICAgICAgICAgICAgICAgICAgICAgICAgICAgICAg CHTmUPRoDRVoIHViKDGxQHCtFXJoJTGyPPPfOBThKMDlKYWzPHCfRM1WZETnZGZaAEGrIHPaIPNkAGJd ICAgICAgICAgICAgICAgICAgICAgICAgICAgICAgICAgICAgICAgICAgICAgICAgICAgICAgICAgICAg DLQjCDOiNSEjNCMlQHHeNUYgTNLoVW7RQWAqKAPwBV AgICAgICAgICAgICAgICAgICAgICAgICAgICAgICAgICAgICAgICAgICAgICAgICAgICAgICAgICAgIC HoXFTiSRZaQSLxRQSlLIOnVDBfFWCbGJRhPPYkTEZqTU5BVHUzLQOvIHVhBJRbDHXhQLPzTZJlSPMdQL AgICAgICAgICAgICAgICAgICAgICAgICAgICAgICAg HFAfOMUxWOAeTMMwGUWdPFBcTGZiBPMkRTOnNVOmRQJhTIRpRTRgOPQyRZ1EPUFaZQCpQSRjSHAiAFFm ICAgICAgICAgICAgICAgICAgICAgICAgICAgICAgICAgICAgICAgICAgICAgICAgICAgICAgICAgICAg JGApACVoZDPaVPIlPDNpFAKbPLQmIUItLN8OBROpAM AgICAgICAgICAgICAgICAgICAgICAgICAgICAgICAgICAgICAgICAgICAgICAgICAgICAgICAgICAgIC WxTNTcQIAiNFQwVDYfZFYcTOCmHXWsPRZqNTWjPGQdCAVzWR8AHN14yZLcc7F4PXTcVU0lnym/Pg0KDQ hobkCheZHzRI1VLuXjNV8wgc4HSyOeJG6juz1WLSyG PzQpS0M7lHFpCYOvAYMSGzCrU70vNAbpFl58XDbsPPErZsVyPEg9Qt7RDvGwR6avTONuQqP5PLHhOoBw SXfxOB0Bw4BulQFzKQt+Er9LFT9fn1RyCGrwBMLnRA0mmm1WNWgFQmVeO7CimkF9PCMnUDWmRm4EDHOo MANjrOOkSQBnWSSIWcXgE9FlmX44UWBJNp7+DQplbm RjUzsDCfBoMMJuo7DxOLz6BP8BKNPlRBd7nBOhQEXxB9Pml7XgFr30SEIvEdhpBgGwebXjvK9mFlESmA KlAP5UTIJ4IVMrSo6pPGXdWGJcMmM8RMLVQL3KOPUyONPzvQRrWZZtPFGXGT4SZTrlNTC2GLLrrcKetA QyHEtoHA2CCIDjhqLhBKhwBMKUFYh+Pp3VGG9eg7Cs BZedRKMnIP5qdu0OJVkTLmNpF2I7cAVbR5Y6CPlcVb1CLNNkUZFmTDmmNQVDYEskFY3SSQ1zxpB7TE9C hDMeKXZxJOYqhJUwEWy9R17xiZUySKyfMS0IWHL+Marcia+Ny4YYUVoSYPdSIRrHoWyBDLVLnFsV0ZvT7ME a3CiZ8PzXJ06jDuqerBeIKyrCG1FIH3qEGTvEKBZVX 0JzGNofA7zetKcBIRpNDGUMbUoX88wdAKiGVZyWDN5RBNfZj6TDNEmO6DftjMnvVxkngPrLOEsDLCPOQ 5TOCyvjsHgwJLpeZokZR25bPezKN3DOr0HAdGjSJ6yej6YySKpCa2UKGEiIg0PDMRuOKGuBKHcLAP5SL UxHbAiGNmtTOMjWIDqOQE3VZDyTUKlWS8JNrXzDMWc VFu2RoOgYRXfQGApgv8NITKnFLMhWSZ4SlImSJRxHZHbHNgbGWXrECEmXCP6KIBoGSXqQA1GAaTiEZJu FBG5ORKaJPSnMQRuou9CXMEhSUMbDausBZHcWVIaRQNrZRbmTDTeYCT3FCRfTUDiPEZuBQ8AFpPvKOXc WYWtEUcsQBPnALArny5UVKEeDHPdUWRyRTQrWLWzLF JhAQoaGTBiADH3RJr5GQRlZHUfPI7VKbJjMRVuJNQfCWmpJZCzCBBspn0QRHAbXMMtVxV7NrFbKEEcSR ZwKTutXKMyNFW8EGPnADEiDRRpFM0WOlBqFJSpYCfoHMzgYKBjGCAnjo5OIDHjJGGoZGF2AoOjWAAgWF ZhNOhwZOGgEQD7UhL1GUJnVXXiTP2LHuFjXRTtJWs5 FMWzYKBmQQTgdk5UGEKpVUBjBUX2FgGyTWCcUKQnAVckWOYyCAPiYslkUSYsUTOcMW9EFsUfBJZzExA0 XpSvHYGxBAMasv2USBJgQHZoVBrrQHGrUCDkIZElNDx4seWhvCMbTYn1PL5JH7UykkUcToPJQs1Sz146 FCGsQEMfHh2LK8bzZo7iYECmUVTKDz1FFHw1RbVbTE MqYEFhFBKxODYrIFWdU5JwSWOtNTJvEqa2DcN+CQmaOYHiQkH5JSIlRiHeCWKwIXRsPBLgTxL7ALAcMz JvII9sZGZYUv9+KYtytOBtvHyqLVYYUyJoSVCnEWvgKSLQSw4I ID Date Data Source [id number] 10/19/2019 07:49:27 AM EST [facility] XR HIP- UNILAT, 2-3 VIEWS [id number] RE SULTInterpreted by:RACHEL Rodríguezelvis and right hip:INDICATION: Right hip replacementFindings: Frontal view of the pelvis along with a frogleg lateral view of the right hip was obtained and compared with 09/19/2019. The patient is status post right hip prosthesis. There is no evidence for fracture or loosening. There is slight increase in heterotopic bone formation. No other significant changes noted.This document has been electronically signed by Tyshawn Graham MD on 10/19/2019 7:47 AM Name Value Range Interpretation Code Description Data Sherron rce(s) Supporting Document(s) ID Date Data Source [id number] 10/09/2019 09:51:14 PM EST [facility] Name Value Range Interpretation Code Description Data Sherron rce(s) Supporting Document(s) Progress Note [facility] MQSTTr7nWhFNXlLp75/ZMRecNILbv6YsZFznNDm1ABpxLGJzB6BuFHD1vV6gECX6KHsMZmLxLjBmLkL9 lbm [file] ICAgICAgICAgICAgICAgICAgICAgICAgICAgICAgICAgICAgICAgICAgICAgICAgICAgICAgICAgICAg ICAgICAgICAgICAgICAgDQogICAgICAgICAgICAgICAgICAgICAgICAgICAgICAgICAgICAgICAgICAg ICAgICAgICAgICAgICAgICAgICAgICAgICAgICAgIC AgICAgICAgICAgICAgICAgICAgICAgICAgDQogICAgICAgICAgICAgICAgICAgICAgICAgICAgICAgIC AgICAgICAgICAgICAgICAgICAgICAgICAgICAgICAgICAgICAgICAgICAgICAgICAgICAgICAgICAgIC AgICAgICAgDQogICAgICAgICAgICAgICAgICAgICAg ICAgICAgICAgICAgICAgICAgICAgICAgICAgICAgICAgICAgICAgICAgICAgICAgICAgICAgICAgICAg ICAgICAgICAgICAgICAgICAgDQogICAgICAgICAgICAgICAgICAgICAgICAgICAgICAgICAgICAgICAg ICAgICAgICAgICAgICAgICAgICAgICAgICAgICAgIC AgICAgICAgICAgICAgICAgICAgICAgICAgICAgDQogICAgICAgICAgICAgICAgICAgICAgICAgICAgIC AgICAgICAgICAgICAgICAgICAgICAgICAgICAgICAgICAgICAgICAgICAgICAgICAgICAgICAgICAgIC AgICAgICAgICAgDQogICAgICAgICAgICAgICAgICAg ICAgICAgICAgICAgICAgICAgICAgICAgICAgICAgICAgICAgICAgICAgICAgICAgICAgICAgICAgICAg ICAgICAgICAgICAgICAgICAgICAgDQogICAgICAgICAgICAgICAgICAgICAgICAgICAgICAgICAgICAg ICAgICAgICAgICAgICAgICAgICAgICAgICAgICAgIC AgICAgICAgICAgICAgICAgICAgICAgICAgICAgICAgDQogICAgICAgICAgICAgICAgICAgICAgICAgIC AgICAgICAgICAgICAgICAgICAgICAgICAgICAgICAgICAgICAgICAgICAgICAgICAgICAgICAgICAgIC AgICAgICAgICAgICAgDQogICAgICAgICAgICAgICAg ICAgICAgICAgICAgICAgICAgICAgICAgICAgICAgICAgICAgICAgICAgICAgICAgICAgICAgICAgICAg SACrFVEpWFOyZBFcLDScJAUhUZJrTXGeYKw9X8cyXBAgGGNgUW1hEXe9Gt4+VTtMVpChOKT2ffTvgF2R EK2sa0WjGZcmAXIlc7DpTQq5KE9EPXToSXbnWI4GUT nfco2DGXRhIRYgdMIAc3fwKnQxGKM6BDTwVxgkOB4JSVJwG2dkroJmBYDfBLCHDT2KEcGbT9JcjX70HX ENCj4+RLgyytJxPapBPrN7OBDmg0NuKDs1VQ0KRCNiAamun3ZjUyXoHTKNEBpcBD1FGRX5KXQwAXLwSr 4EKXBtM252lfStAK1WVj9IWwSlJD4iyl0YEpFlEEVp MhuYTxo0FIroWM1IvQWbDWrFxs9ewcBhnsGSm1EqtxDdmCGZLIU3sQA3NIMlVnB5AIXjCR7GKYV8PXHk DP2hOYFfOZRyMxY7JIDNJX8ZFXUaNNZljYCjJGViXUGINZ3SXOzpLAZ9BOYtuvDyfYQfRDafKM7POTVr bnQgMTkgMCBSDQo+Rz1QZV1ja5WbVYnkMWIbOL2ldg 5HNYpLQvVvG2E8wMQzS5F5NAuiDx0YWYKwCVUvLTynOSOFGUiaSI4NGD9qwbW1AW3JgKDlMEVcAVDyrU QjSGl8K48riYEhFVmlMD2IZYE+Marcia+Kj3VFSUfCFBuTFEmBlMqGWJNYtGrN0RrJ4TSg2VpI7OoQA28pF lwgrFiBFrhQQ6RSR3fHPBpQQBACO7GkCPotP6xobTk JROlLWVLWmQgL85mvCPvXIGxNWS9WJZkOx6EDQSjU4OsvfFkbFzpezUbARQsTPEVKZ0NNSlthxGtzKYp pYwtNH12xOvaMS0PMh0LUgPfBC3xol3NjQIwUw4SBSWmAn3AYUOwDEIpWASqFQP4XFDqGoXuXCeyQZSu FIRhLTC5NPWoEKOtHY0SAcPeDYEdHtX5WbHvPTZfSB Knde8DQIVxJBGsXsM9SKWfOLUqJDAjNZsdQEQxMRIjHDC3IKByOSAjNY8WBsPzTTVfKZDcDmWoQOXlPN Amza7RJORoVLZdKyD4EMGqAJCnKIQaRTwpVCYoDFH6TGA4HIFjIFZgVE1MJjAlTGYzZRX4ClOrGBZxGP Cqqq1BKRPxDNGrBIdvSyCpRAPdYOQdTGhdIUDtHLZ5 NEneXETxRMJtWV7HWmLmRUNnEIEiCoZeBJDuFGXdmi7QZROfCIUwNbR2ABSnVWCmDPFiTJahUZAaPBX3 XRH6OYVnUOQfXE8CSxWwMIRtTsAfWmKoZWEyJONnuy5DCTHmBMLgWFK3HQXoEDIbVOLaKSwyRYIbUHNz FuQ9GWFkXERdLY1TGuUmQONfXnR1CWMeENSnBDTmnl 5GPVMgOQRrIAFxDVHgOKAdBNOjJZorGOUyQPCgPjC3VTByKIWnTW1LYxZkWCTsUnD5HNceTQHlMKRkwy 1RKPNaCLJdFnz4NAHaUOUaNAOeJQj9beVtbYOqQRq4DC3YS6OrdxKyIgTKLs1Sr045TNBrKSSpDt6KL6 xtYm7aPBLmJEPHSw2TFYd7QqfvPfmcAzVwCvu2GKCk Fyh1JRUzHcG3HiH9WCKfZTT+ERfaTGJaL9HaZVVsAQhaF1EeWGjnOYYlYfnuMgitWlLoLV5bRRJOWo6+ XJaxiJIhhObcHTIAPtSzBJFoKLylWBDYRc6T ID Date Data Source [id number] 09/20/2019 05:18:19 PM [facility] XR HIP- UNILAT, 2-3 VIEWS [id number] RE SULTInterpreted by:Tyshawn Graham MDHip unilateral, 2-3 viewsINDICATION: Right hip replacementFINDINGS: Frontal view of the pelvis was obtained along with frontal and frog-leg lateral view of the right hip. Comparison is made with prior study of 08/28/2019. Patient status post right hip replacement without acute fracture or loosening. Previously seen air in the soft tissues and skin georgie are no longer identified. The left hip shows no acute osseous abnormality and is unchanged from the prior study. 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 The examination shows the bones are normally mineralized.IMPRESSION: Right hip replacement without fracture or loosening.This document has been electronically signed by Tyshwan Graham MD on 09/20/2019 5:16 PM Name Value Range Interpretation Code Description Data Sherron rce(s) Supporting Document(s) ID Date Data Source [id number] 09/07/2019 10:45:25 AM EST [facility] Name Value Range Interpretation Code Description Data Sherron rce(s) Supporting Document(s) Discharge Summary [facility] OEJLUm2vVdVZRvCa07/CHVurFRDgv0NbQTmsKAo0RFunFAAhE4BdYGD6mA0iOZR2YKxGNeRlHkMsHUHs lbm FfLnrSXsFlRFRoNhjWTgGxDBgqKqcudDGjOY5DyWW6EESgV82mSNZrXUSjH3PyZSP5QfB+Aj8VWFMlyU MyQZ1MHgcE9Rmsx+W6HR2y5O4ZbCSBPPkxRDq30T0mngOo6LCwx+0EdWYgWXFCj97aA1ttn64acI1nSq /QPC7Ryxy9fY9Efd/odOhLm8tz81/sxFWWZbHs3/qn 0wg6roD//7eyfxvcbpy2eHqBP3ZaMW4pPFsF0cdPqP1J40qdXEv1lB3Y12gh9BrWvrw2oQp63i/myePT R0gDc7CuChOkk16ENeSMtwR230+d1VQlRRgtz9sldjih+Nn8P5lPgGIsmTgteTslGNenthON/Wtk1Rrz bOIbWJaiI2wi3OjWmbl5Zck3AxpkYu9BhL5g4E/yFi YF7Gd1LfGk3aZgTqAegqv6u3XhqIopM7xQu0hiwfD14DV4pS+OV+X3W0fDjjXOmrwtF8pXx1TYUWhF2c vgZAbLrhSOrURJrnean0X+uQqGG9Ryxa8y/qx2kSZscoH0IBt4DGDjZaSxf/H6dlR8W+dO8ga6SoSgFh j/9xHfyr6d4CynNu4waBpF1EIuPxDkw/br0WlBtrWE i81vICYsqJm6IL3nqgRE/pbPP0x4mgm5cT4NL/nw8pjCmtv7o0UsrMij+0nLPnYc/9jzHZWu/5fzWWxy 0jkzRdMBhB63EufhT0lwtf2l0IYhgj9bMB6pq3gqQmdldKfkPoiVsdYasun1vJsQjzZakGSyIFXpaicj uOSJe04NXKZiqWSYBK4sVXRTbU11sSnrpsX+77IcSs 7tPOdGScz+bkOD73vycYFNcRyaMxDiQUgHljhj5TmW9ATsVGfBDEQGceUjHuEN/SzPTMsDsRG37aqEl5 wbjbixAzuhn00qrfLcU2SxzvHqNA4bKGJJgOtnN+rJuP3M5KKrBH/xoiaH3CuACghNy9Mfx0lINzu8CJ HB7Fg1SrLNAj7TSuxR0gvy9Wy3+Jj+wOyjSkLImuT [file] PNhmcHRILJDFM0DP7fZBEd9SgHu/W/Xcqq6nfkusPClXf0IA/dLNv+7z/KiLiM07z55z+8z3psMto/TAPE CALENDER gkU9K4a6Mph8+9+8Y72A7fkKkUX97x7b1fRz24scBy8BEo/8fDg+siR3oBI//u4A86lsee9u5hw8l2z5 tJq3ggo7h8+uY/nP48g8O3/PPPsy+++tJOPsvrvNpO wt4rVO5I/nRmjrOuSPljFUq2nC0ogGRm06rth8nO6O01iSc52xSgw6t0pz9ZLg6ba+0nLg82l+9uVtaz iZGdU1n6abj5M2M6H/u+86xFvpwXb+ddb/IlFxb7XCrf64NXeQZu9DkzSzoPTga1TAha7HRGzXE4cOiQ fFXn7l/Arr67MBeyD1Z3tCzlgE/PE87wskaBy+X26Z ayj9Vjpis6nx4vO0lk0fOn/gC44dXco8+Z2lyV7u1PgZf/+3JAnk9c7O+fbh/YZ1lTaAbQ7d/zVdOsD+ 00+X2m9svvdGf62k1PxgwNq8Q/pzeSVGypb3L++Zns5pJv3wLr0QH8cUl723sHverA3so+s/H5OMvqHT Pee61A1rYr+cWZ021pl4d94K1x6Vl36rZir5kM8dXt [file] DQogICAgICAgICAgICAgICAgICAgICAgICAgICAgICAgICAgICAgICAgICAgICAgICAgICAgICAgICAg ICAgICAgICAgICAgICAgICAgICAgICAgICAgICAgIC AgICAgICAgICAgDQogICAgICAgICAgICAgICAgICAgICAgICAgICAgICAgICAgICAgICAgICAgICAgIC AgICAgICAgICAgICAgICAgICAgICAgICAgICAgICAgICAgICAgICAgICAgICAgICAgICAgDQogICAgIC AgICAgICAgICAgICAgICAgICAgICAgICAgICAgICAg ICAgICAgICAgICAgICAgICAgICAgICAgICAgICAgICAgICAgICAgICAgICAgICAgICAgICAgICAgICAg ICAgDQogICAgICAgICAgICAgICAgICAgICAgICAgICAgICAgICAgICAgICAgICAgICAgICAgICAgICAg ICAgICAgICAgICAgICAgICAgICAgICAgICAgICAgIC AgICAgICAgICAgICAgDQogICAgICAgICAgICAgICAgICAgICAgICAgICAgICAgICAgICAgICAgICAgIC AgICAgICAgICAgICAgICAgICAgICAgICAgICAgICAgICAgICAgICAgICAgICAgICAgICAgICAgDQogIC AgICAgICAgICAgICAgICAgICAgICAgICAgICAgICAg ICAgICAgICAgICAgICAgICAgICAgICAgICAgICAgICAgICAgICAgICAgICAgICAgICAgICAgICAgICAg ICAgICAgDQogICAgICAgICAgICAgICAgICAgICAgICAgICAgICAgICAgICAgICAgICAgICAgICAgICAg ICAgICAgICAgICAgICAgICAgICAgICAgICAgICAgIC AgICAgICAgICAgICAgICAgDQogICAgICAgICAgICAgICAgICAgICAgICAgICAgICAgICAgICAgICAgIC AgICAgICAgICAgICAgICAgICAgICAgICAgICAgICAgICAgICAgICAgICAgICAgICAgICAgICAgICAgDQ ogICAgICAgICAgICAgICAgICAgICAgICAgICAgICAg ICAgICAgICAgICAgICAgICAgICAgICAgICAgICAgICAgICAgICAgICAgICAgICAgICAgICAgICAgICAg ICAgICAgICAgDQogICAgICAgICAgICAgICAgICAgICAgICAgICAgICAgICAgICAgICAgICAgICAgICAg ICAgICAgICAgICAgICAgICAgICAgICAgICAgICAgIC DgZWBoNXAsHLOfEGXxYZOuCDUpCEu1L5pwKDUbLDJzJJ4mTLi7Nf7+KXbSIdUxKJI3ykGkrE4WNU6zt9 NyWJhzJMEmm6XmZFu2OD8AHHRcLBkbYE8IHVerdv5TLNRoVSFftBUHo5jjCqUtDFA0THCxQvttYM8BQU LvT0udsnMoAAGnMQASZSssYFCJAQcuOLXMBKBoZLKw VyApFmToBETlYT8MMUNbV821buMjOX0ZVm4WQnKdDV9vew4PReOkXUHkZozVSjh3PKtxPO6QlAFagUIk AGGhTPEJCqWzD3ydd6BvAbCbJYIGSHnjSU3Ly0EfcMEyVQm+Tc2HMU1hd0UdUGnbXQTyPA4cqh9PGQwJ AzRyN7UinHaaLJGji2PoISFmYHHRaM4cUSP1LWS7VW N9SOKmGA2dTWEYWHxmblCvxO0tNPzsVXDxKLSxHB4zCA7hNEGvYGYfDwSfECRASF2QLEXwIMCtpVOzXF PdLBUYPH1OYCdeSFX2IBNhohJlxJZbMGjaYQ9PGWKttvMhDyBtWBSRHUn+Ps5BJY6vs3CtNNxpOoCrOU 6dya9FTQrJBkVcW5C6lYExR6A2RKypWm0RNZLhJRCq EkwtYEBOYPuiPC5XPG7bpfP1BZ1DlWRbSAAoKCRpgBOfQXr9Y93zxGHvWFneYE2BXIJ+Marcia+Nd5NDJBq RFQqWJSrVzViXJNUCpQbA1LpG3YFs1RaX5LgWE96jYzidyVeWYheVH5HSO6cOBCzSPMAKJ4TiJGcgZ7q uhOtWUNeVBJAYaWbY70quSGcABXfDKC1PXVaMl1ZOD AmD8IvexSqqJjqxnMpVGYyXLAVEF4CNIiwykKlxQSkvTagOB17hRllRZ1EKt8KAbTmKC3ygb0VnYRrBa 0HVYDdLn0NAQKlXWSeUGKbFJO2WHAyKzKxVUevUXTjDXRiDMN8CKDiFSIiIV6POyViYVFiCeSuRZSqLT MdDFIhpc2JVMZqAGPrNaf2AZYlZVUmTJQxMIgoZGNt WYWqYDA6JMWvYVToWT8YDoPmFINwQRY0CEAwYFMwSMOvcg2QVPKcBDBaTvefOIGvCHWwPPMhEFxaCZAy GKM2YcK0CSLyBEZvZD3ILxFmKEJuATY2KPkyTHAvWWIjkz2NQAZxZUVyQFPnBXGnKVCpNPRnTLvmPUZz LSZfUoY6OLOaUZFaZO3NAwScVCHoOWK3AgFgEUOzYT Yonk3EFPFvNEIjOWBdMxZaZIYoEAPtKTquBECiIMH5QFP1YKRsFWSpJR0HBeLaCODyESNyVvYlTPTxXB Waws8HJPFdIEToDgD0VORaGQRxZCZaLSgsLYEeRQP1Bpe1XQAzGGIsAU1EJsHaQBFaEDj3PgErFJJaYZ Fhxi6ZRKNpTRYlSDPzMQMtRQMbFHFuUNvnCIXzUPL0 TzYaIYJaNXRqOA6ABjNpJSUoICh4FAfkCWKjPMEtbz6ICKPhUQFgSGt9WEIzVUMqVPJzOAieNXCsPDCp GEz3DRGuZZSrDG6AJiWySVJyFuCrRYtyNGFdWUWwfg6MVSMlVJBbYBOaNHNyUTJmVWUkHDjzBFVtSAL3 HBGsUPSfDTJkZW0JInEdMSCaIfD8ILMfIVKtKSDnhv 6TLLHgNAXbKRd1JSEnHEQkGSEvNZstHHRoLMI3CHHfGUCpHHXoVX2VKgLpVFGaThU3NHwrZUNxJYJnqr 8HRVHmBCFvOiylGrQoOHDiVQMlYXneINDfFQJ8RBnoASDjMENiPK7MGiLoAKFzTgbtKGWeFXUaLBAvxb 9TlLLbrNphph2MRAeOWr6PiLfoHTCfYPakHd9kxZIm PjAeUNCNZo1GddXjOJSdNYVTAIiuAOBcTWZ3G6WrRqUmBpCoP4GxLIItR6EcDUNqLMCyJYhdKjD3OwB4 FjF9OiCsRVO6HzJzVgKsLzE1JuDeZHCfReY4DGChMIJ+AR9hOAa+Gd9Vg5OtxaR3xgXvWOjvFZG0Ib4I SSUNQ3BOFp== ID Date Data Source [id number] 09/04/2019 03:29:00 PM EST [facility]) Name Value Range Interpretation Code Description Data Sherron rce(s) Supporting Document(s) EKG Laboratory test result [facility] ([facility]) ID Date Data Source [id number] 08/30/2019 11:52:47 AM [facility] Name Value Range Interpretation Code Description Data Sherron rce(s) Supporting Document(s) Glucose [Mass/volume] in Capillary blood by Glucometer 128 mg/dL 70- 140 [facility] ID Date Data Source [id number] 08/30/2019 08:09:23 AM [facility] Name Value Range Interpretation Code Description Data Sherron rce(s) Supporting Document(s) Glucose [Mass/volume] in Capillary blood by Glucometer 130 mg/dL 70- 140 [facility] ID Date Data Source [id number] 08/30/2019 05:36:13 AM [facility] Value Range Interpretation Code Description Data Sherron rce(s) Supporting Document(s) Leukocytes [#/volume] in Blood by Automated count 7.1 10*3/uL 4-10 [facility] Erythrocytes [#/volume] in Blood by Automated count 2.77 10*6/uL 4.1- 5.3 L [facility] Hemoglobin [Mass/volume] in Blood 8.8 g/dL 11.5-15.5 [facility] Hematocrit [Volume Fraction] of Blood by Automated count 26.2 % 3 6-45 L [facility] Erythrocyte mean corpuscular volume [Entitic volume] by Auto mated count 94.8 fL 80-96 [facility] Erythrocyte mean corpuscular hemoglobin [Entitic mass] by Automated count 31.9 pg 27-33 [facility] Erythrocyte mean corpuscular hemoglobin concentration [Mass/volume] by Automated count 33.6 g/dL 32.0-36.0 [facility] width [Ratio] by Automated count 14.3 % 11.5-14.5 [facility] Platelets [#/volume] in Blood by Automated count 188 10*3/uL 150-400 [facility] ID Date Data Source [id number] 08/29/2019 09:44:35 PM [facility] Value Range Interpretation Code Description Data Sherron rce(s) Supporting Document(s) Glucose [Mass/volume] in Capillary blood by Glucometer 139 mg/dL 70- 140 [facility] ID Date Data Source [id number] 08/29/2019 04:49:00 PM [facility] Value Range Interpretation Code Description Data Sherron rce(s) Supporting Document(s) Glucose [Mass/volume] in Capillary blood by Glucometer 149 mg/dL 70- 140 H [facility] ID Date Data Source [id number] 08/29/2019 12:46:45 PM [facility] Value Range Interpretation Code Description Data Sherron rce(s) Supporting Document(s) Glucose [Mass/volume] in Capillary blood by Glucometer 128 mg/dL 70- 140 [facility] ID Date Data Source [id number] 08/29/2019 08:47:46 AM [facility] Value Range Interpretation Code Description Data Sherron rce(s) Supporting Document(s) Glucose [Mass/volume] in Capillary blood by Glucometer 110 mg/dL 70- 140 [facility] ID Date Data Source [id number] 08/29/2019 09:21:05 AM [facility] Name Value Range Interpretation Code Description Data Sherron rce(s) Supporting Document(s) Hepatitis C virus Ab [Presence] in Serum or Plasma by Immuno assay Non Reactive [facility] No serological evidence of active infect ion. If recent exposure is suspected, test for HCV RNA. ID Date Data Source [id number] 08/29/2019 05:54:02 AM [facility] Name Value Range Interpretation Code Description Data Sherron rce(s) Supporting Document(s) Leukocytes [#/volume] in Blood by Automated count 7.2 10*3/uL 4-10 [facility] Erythrocytes [#/volume] in Blood by Automated count 3.01 10*6/uL 4.1- 5.3 L [facility] Hemoglobin [Mass/volume] in Blood 9.8 g/dL 11.5-15.5 [facility] Hematocrit [Volume Fraction] of Blood by Automated count 28.2 % 3 6-45 L [facility] Erythrocyte mean corpuscular volume [Entitic volume] by Auto mated count 93.6 fL 80-96 [facility] Erythrocyte mean corpuscular hemoglobin [Entitic mass] by Automated count 32.6 pg 27-33 [facility] Erythrocyte mean corpuscular hemoglobin concentration [Mass/volume] by Automated count 34.8 g/dL 32.0-36.0 [facility] E[facility]th[facility] distribution width [Ratio] by Automated count 14.6 % 11.5-14.5 H [facility] Platelets [#/volume] in Blood by Automated count 210 10*3/uL 150-400 [facility] ID Date Data Source [id number] 08/29/2019 06:09:35 AM [facility] Name Value Range Interpretation Code Description Data Sherron rce(s) Supporting Document(s) Bicarbonate [Moles/volume] in Serum 23 mmol/L 22-29 [facility] Chloride [Moles/volume] in Serum or Plasma 108 mmol/L 98-107 H [facility] Creatinine [Mass/volume] in Serum or Plasma 0.45 mg/dL 0.50-0.90 L [facility] Glucose [Mass/volume] in Serum or Plasma 137 mg/dL 70-140 [facility] Potassium [Moles/volume] in Serum or Plasma 3.9 mmol/L 3.4-5.1 [facility] Sodium [Moles/volume] in Serum or Plasma 138 mmol/L 136-145 [facility] Urea nitrogen [Mass/volume] in Serum or Plasma 9 mg/dL 8-23 [facility] Anion gap 3 in Serum or Plasma 7 mmol/L 8-15 L [facility] Osmolality of Serum or Plasma by calculation 287 mosm/kg 275-300 [facility] Creatinine/Urea nitrogen [Mass Ratio] in Serum or Plasma 20 [facility] Calcium [Mass/volume] in Serum or Plasma 8.4 mg/dL 8.8-10.2 L [facility] Glomerular filtration rate/1.73 sq M pre dicted among non-blacks [Volume Rate/Area] in Serum or Plasma by Creatinine-based formula (MDRD) >6 0 [facility] Glomerular filtration rate/1.73 sq M pre dicted among blacks [Volume Rate/Area] in Serum or Plasma by Creatinine-based formula (MDRD) >60 [facility] ID Date Data Source [id number] 08/28/2019 09:12:12 PM [facility] Name Value Range Interpretation Code Description Data Sherron rce(s) Supporting Document(s) Glucose [Mass/volume] in Capillary blood by Glucometer 192 mg/dL 70- 140 H [facility] ID Date Data Source [id number] 08/28/2019 05:02:11 PM [facility] Name Value Range Interpretation Code Description Data Sherron rce(s) Supporting Document(s) Glucose [Mass/volume] in Capillary blood by Glucometer 163 mg/dL 70- 140 H [facility] ID Date Data Source [id number] 08/28/2019 01:51:41 PM [facility] XR PELVIS 1-2 VIEWS [id number] RESULTInt erpreted by:Corby Peterson [facility], one to 2 views, portable dated 08/28/2019.REASON for study: Total hip.FINDINGS: A single AP study of the pelvis was obtained with portable technique. When compared to a previous exam dated 06/29/2019 the patient has undergone a total hip arthroplasty. Acetabular and femoral prosthetic components are normally seated and normally related to each other. The underlying bones are intact. The left hip and hemipelvis are grossly unremarkable and unchanged from 06/29/2019.This document has been electronically signed by Corby Peterson MD on 08/28/2019 1:49 PM Name Value Range Interpretation Code Description Data Sherron rce(s) Supporting Document(s) ID Date Data Source [id number] 08/28/2019 12:23:58 PM [facility] Name Value Range Interpretation Code Description Data Sherron rce(s) Supporting Document(s) Glucose [Mass/volume] in Capillary blood by Glucometer 159 mg/dL 70- 140 H [facility] ID Date Data Source [id number] 08/28/2019 11:18:33 AM [facility] Name Value Range Interpretation Code Description Data Sherron rce(s) Supporting Document(s) Operative Note [facility] OQLMCw1jCdHQDaOj92/OFNqiPVCtu6CtOVlpXTk1PSukMDXfX6VuAWW5zY4kGJG5QZsITuUvNiRgKRSw lbm [file] o9uQSYmtSvwqutaTlIjHfUDuVqkK/OrhW40P59efcN8qJ7tYat/q1rqy1gaP1Hai4lb/87u6GNXly+[employer] 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 DiagnosisBONE, RIGHT HIP, ARTHROPLASTY: DEGENERATIVE JOINT DISEASE. (GROSS ONLY)./pws Jennifer Gleason MD;Resident PathologistElectronically Signed By Matty Sun MD, Attending Pathologist 08/29/201909:56:10Processed at [facility] Pathology Laboratory [facility], [address] [place] [address]. [facility], [address] [place] [address]. The attending pathologist named above attests that he/she haspersonally reviewed the relevant preparation(s) for the specimen,performed microscopic examination when indicated, and rendered the finaldiagnosis. Unless 'gross-only' is specified, the final diagnosis is basedon a microscopic examination of branch service representative sections of tissue.Gross DescriptionThe specimen is received in formalin labeled with the patient's name"Key Sanz" and "right femoral head". It consists of a femoral headmeasuring 5.6 x 5.5 x 5.0 cm. There is 2.0 cm of attached neck present. The articular surface is castaneda- pink with an area of eburnation and pittingthat measures 4.5 x 2.5 cm. There is moderate osteocytic formationpresent. The cut surfaces are trabecular with subchondral cyst formationnoted underlying the eburnation. No other lesions are seen. No sectionsare submitted. Gross only.ND/pws This report may include one or more immunohistochemical stain results thatuse analyte specific reagents. All positive and negative controls havebeen reviewed by the attending pathologist and are satisfactory. The testswere developed and their performance characteristics determined by [facility] Pathology department. They have not been cleared or approved by the USFood and Drug Administration. The FDA has det ermined that such clearanceor approval is not necessary. Name Value Range Interpretation Code Description Data Sherron rce(s) Supporting Document(s) ID Date Data Source [id number] 08/28/2019 07:37:40 [facility] Name Value Range Interpretation Code Description Data Sherron rce(s) Supporting Document(s) History and Physical [facility] AUISAy1nOuBSRkSx55/TNKdjAFVnn6WsXSpjWYg5TIbsYOMgK5QqPXX8pQ9oHRY9IWkZBxNiJkRkODIc m [file] ICAgICAgICAgICAgICAgICAgICAgICAgICAgICAgIC AgICAgICAgICAgICAgICAgICANCiAgICAgICAgICAgICAgICAgICAgICAgICAgICAgICAgICAgICAgIC AgICAgICAgICAgICAgICAgICAgICAgICAgICAgICAgICAgICAgICAgICAgICAgICAgICAgICAgICAgIC ANCiAgICAgICAgICAgICAgICAgICAgICAgICAgICAg ICAgICAgICAgICAgICAgICAgICAgICAgICAgICAgICAgICAgICAgICAgICAgICAgICAgICAgICAgICAg ICAgICAgICAgICANCiAgICAgICAgICAgICAgICAgICAgICAgICAgICAgICAgICAgICAgICAgICAgICAg ICAgICAgICAgICAgICAgICAgICAgICAgICAgICAgIC AgICAgICAgICAgICAgICAgICAgICANCiAgICAgICAgICAgICAgICAgICAgICAgICAgICAgICAgICAgIC AgICAgICAgICAgICAgICAgICAgICAgICAgICAgICAgICAgICAgICAgICAgICAgICAgICAgICAgICAgIC AgICANCiAgICAgICAgICAgICAgICAgICAgICAgICAg ICAgICAgICAgICAgICAgICAgICAgICAgICAgICAgICAgICAgICAgICAgICAgICAgICAgICAgICAgICAg ICAgICAgICAgICAgICANCiAgICAgICAgICAgICAgICAgICAgICAgICAgICAgICAgICAgICAgICAgICAg ICAgICAgICAgICAgICAgICAgICAgICAgICAgICAgIC AgICAgICAgICAgICAgICAgICAgICAgICANCiAgICAgICAgICAgICAgICAgICAgICAgICAgICAgICAgIC AgICAgICAgICAgICAgICAgICAgICAgICAgICAgICAgICAgICAgICAgICAgICAgICAgICAgICAgICAgIC AgICAgICANCiAgICAgICAgICAgICAgICAgICAgICAg ICAgICAgICAgICAgICAgICAgICAgICAgICAgICAgICAgICAgICAgICAgICAgICAgICAgICAgICAgICAg ICAgICAgICAgICAgICAgICANCiAgICAgICAgICAgICAgICAgICAgICAgICAgICAgICAgICAgICAgICAg ICAgICAgICAgICAgICAgICAgICAgICAgICAgICAgIC AgICAgICAgICAgICAgICAgICAgICAgICAgICANCjw/fIJpI8mjhIBccyB4Y8prWo0NAu9CQF9az6DaZW GwIJmwumCgPvtJLjQeBXLsBtsQKze6HVdoOS3EhNFwY8OiW3QwQJwiSK9SGBUrGVQeoHWwDRRaYNYtKw F6NYVnDHlmMA3YgQTgDLezGNKbEXTiXwUmPKHnZURq QXWzLTBlRHYZAC6VWkJkA6FvdB68YGWMXp0+EOuqtlBvVscIHeH3HATyy8QtMVi6OZ5AASJgXvlhd5Ni DrlfSGBPPBvnGS9FAUL0UYD7LUUkTf7UXBUoV077kwMxOI4SMm4BOeMdZZ5seb7ZNecrZHAzRdwHKfg4 GNxxZO7BpIXtDHuYNoGwVqztVG2tcTLYssTmARAHOJ ZhzEDoJgYoDaZtFmPuVVr2PcoeGI6nHWehUG8IYTX2HErgIXNwOMNoG1wUZnUqCJUaPuDupArjCD3PBq ChP7AfpyFmcLVdRQFoMVGVDt5+ILfzhrTpLedAJoTmXBFgv5HyGRj8UZ8NDRWvOCviWP3WKDYzoV4gKM iwJB9KEwUvJzByLNCXRkKaR18itGFaESz3M8TqPgDd ZGVkRmlsZXMgPDwvTmFtZXMgWyBdDQogID4+ID4+JBylGE0QQMnwvfCwFQGhRd5ZQINnGEZiQN7xPOWf OGIsH4I6zLscHYPTKaHbO2oekfpxGE4yGZWhV507oLpbycMpUUI3WVVhMj7FTFTvVJA9WGHbrPTzZrtn SDECFCjkYR8DvSMhHPI6eX8bXUtiBNOdGKToP6uUJb CgwLdbFO19jEjabkCvjTYwHEz+Me1MAF6fc7KrLSt5ovEyKHkwYNCfPJflENCeLSUoCAIfCQE4IOL1HW HJEwWpMYWzYMNyOTsrVUClHSRsuc6UKYIjDBBeRCl9NyJdLVRqSTXiNWmrAOZoCQR9OJxjXZIiGYReUN 8LEiMhVYGnRBHkCVcjOLVdKTYtbr0VSPNoCQKjAaJs JBBvYVDkINAhGRhlOKCpZCEvKGNnCSXtBRJpZB3LZlGiMRSdBJBjLfBwSNUkQEIcrm8YTMDoIFEwCkCv NjCnMLAiMLEtGItoSZCbCIX7HIPdGGIsWFAvFD9JWuBkLWXcJCmdAhpgEOOzIRMuah0HDKIiLZNfLVe9 SCMxGPAwGEVjURtfAERjLJPrBTQ6NQOiZRQjRN3TXx TnXRWoFVX3FXhwAMCcLGXuwt0AGEVtYIIoZwYzQHEbTGDkGJCzOXxfFZPoZESlOip1QLTfJVGfKW5JNe PqQCFlVUByYLJeCCIgITEwus2SDIZeMVKuPCF7EOCrFVAxJMCeITxzVHDnODI3McY1WEXoRTGaIT0TNo SiOARtOhUgZaMkISKfUYTjhc8AFJZnGKEfAfG4XkLy AKQrBUQhWGslTJFsPEEkJFFiRGSnRZDiIS1DMsUzUHTwLiGhAzapJOUwZMPcxn3ENFIrONLmOBFbDJTs ENXfWRDcEZpdWAEwJKU8MuE5BKVzWIIoJF0RKmMjNZJbBtY7GBpqKQJeKQPrki0XRUFhHFEnNPdfDDZi QJEyGOPoQBkwLKKnOCZ7IDDpKJUyAUZmYB5YRxNoWG MyRqz9ZKbgBYHoHMOaua3BIPAkQLXjXaU0AXCjUOBnCGJxNSmbMYNmMKT4ENWiHSNcYLJpJY0QGeTfZT kpOBUGQep9POqvV9k6JLYhSQ0ZB0Nva0LqPsIbJUPVERrnHF5xpiWjAVGtYg8CW0hQRwm0IQcoUNMpYI EeALHgZfhbNeQlJ3PaKGk8QNVsW5Z1PU5qBJmwGIZ7 HnRtM4AbYFAyOGWbWqT6GRDkPCM8RkZbViavFjNxGR9VQz4KDiH0YPN8zLMdWe7WKpehIVlQXvYyIL4Z DQo= ID Date Data Source [id number] 08/28/2019 06:59:52 AM [facility] Name Value Range Interpretation Code Description Data Sherron rce(s) Supporting Document(s) Glucose [Mass/volume] in Capillary blood by Glucometer 114 mg/dL 70- 140 [facility] ID Date Data Source [id number] 08/07/2019 03:33:[address] [facility] [address] LOWER EXTREMITY WITHOUT CONTRAST 7370 0FINAL RESULTInterpreted by:Max Umana MDEXAM: CT RIGHT HIPINDICATION: Patient for future right hip arthroplasty. Surgical planningPrior exam: June 29, 2019 conventional radiographsTECHNIQUE: Hip imaged per Alejandro plasty protocol. One or more of the following dose reduction techniques were utilized in effectively lowering the radiation dose for this examination: Automated Exposure Control, Adjustment of the mA and/or kV according to patient size, or Iterative Reconstruction. FINDINGS: Severe osteoarthritic changes right hip with pron-vj-sjja opposition. Subchondral sclerosis and large subcortical bone cysts of the distal femur and acetabular roof. Prominent marginal osteophytes of the femoral head. Moderate osteoarthritic changes of both SI joints. Dystrophic calcifications associated both common hamstring origins.IMPRESSION: Surgical planning CT. Severe osteoarthritic changes right hip.This document has been electronically signed by Max Umana MD on 08/07/2019 3:31 PM Name Value Range Interpretation Code Description Data Sherron rce(s) Supporting Document(s) ID Date Data Source [id number] 08/08/2019 09:27:33 AM [facility] Cmnt XXX-Imp : Microorganism XXX Cult : Polymerase chain reaction assay was NEGATIVE for both methicillin-resistant Staphylococcus aureus (MRSA) and methicillin-susceptible Staphylococcus aureus (MSSA) Name Value Range Interpretation Code Description Data Sherron rce(s) Supporting Document(s) ID Date Data Source [id number] 08/07/2019 09:18:49 PM [facility] Name Value Range Interpretation Code Description Data Sherron rce(s) Supporting Document(s) ABO and Rh group [Type] in Blood [facility] Blood group antibody screen [Presence] in Serum or Plasma [facility] Blood bank comment [facility] ID Date Data Source [id number] 07/31/2019 12:04:00 PM EST [facility] ([facility]) Name Value Range Interpretation Code Description Data Sherron rce(s) Supporting Document(s) EKG see result in chart [facility] ID Date Data Source [id number] 07/29/2019 05:27:49 PM [facility] XR HIPS- BILAT, 3-4 VIEWS [id number] RE SULTInterpreted by:MARIO ALBERTO Marcelinolinical history: Bilateral hip pain.Views: 2 views bilateral hip with AP pelvisFindings: Patient has a normal-appearing AP pelvis with no evidence of injury to the pelvic ring. Patient has a normal-appearing left hip joint with good preservation of joint space. There does appear to be some mild dysplasia of the acetabulum on the left. Osseous anatomy of the left proximal femur appears normal. Right hip shows marked degenerative changes and superior migration of the femur on the slightly dysplastic acetabulum. While there is some cystic change and sclerosis of the femoral head, the remainder of the osseous anatomy of the proximal femur appears normal.Impression: Advanced arthritic change, right hipThis document has been electronically signed by Demian Mcmanus MD on 07/29/2019 5:25 PM Name Value Range Interpretation Code Description Data Sherron rce(s) Supporting Document(s) ID Date Data Source [id number] 07/28/2019 09:30:00 AM EST [facility] ([facility]) Name Value Range Interpretation Code Description Data Sherron rce(s) Supporting Document(s) Prothrombin Time 12.6 s 11.8-14.0 Normal (applies to non-numeric results) [facility]) Inr 0.97 Normal (applies to non-numeric resul ts) [facility]) THERAPUTIC HUMAN INR VALUES INDICATIONS NORMAL RANGES PROPHYLAXIS/TREATMENT OF: VENOUS THROMBOSIS 2.0-3.0 PULMONARY EMBOLISM 2.0-3.0 PREVENTION OF SYSTEMIC EMBOLISM FROM: TISSUE HEART VALVES 2.0-3.0 ACUTE MYOCARDIAL INFARCTION 2.0-3.0 VALVULAR HEART DISEASE 2.0-3.0 ATRIAL FIBRILLATION 2.0-3.0 MECHANICAL VALVES(HIGH RISK) 2.5-3.5 RECURRENT MYOCARDIAL INFARCTION 2.5-3.5 ID Date Data Source [id number] 07/28/2019 09:30:00 AM EST [facility] ([facility]) Name Value Range Interpretation Code Description Data [facility] rce(s) Supporting Document(s) Red Blood Count 4.37 10 4.00-5.40 Normal (applies to non-numeric results) [facility]) White Blood Count 3.9 10 4.0-10.0 Below low normal M [facility]) Hematocrit 41.7 % 36.0-47.0 Normal (applies to non-numeric resul ts) [facility]) Hemoglobin 13.6 g/dL 12.0-15.5 Normal (applies to non-numeric resul ts) [facility] ([facility]) Mean Corpuscular Hemoglobin 31.1 pg 27.0-33.0 Norm al (applies to non-numeric results) [facility] ([facility]) Mean Corpuscular HGB Conc 32.6 g/dL 32.0-36.5 Normal (applies to non-numeric results) [facility] ([facility]) Mean Corpuscular Volume 95.4 fl 80.0-96.0 Normal ( applies to non-numeric results) [facility] ([facility]) Platelet Count, Automated 342 10 150-450 Normal (applies to non-numeric results) [facility] ([facility]) Red Cell Distribution Width 14.4 % 11.5-14.5 Norm al (applies to non-numeric results) [facility] ([facility]) Neutrophils % 50.2 % 36.0-66.0 Normal (applies to non-numeric re sults) [facility] ([facility]) Lymph % 34.4 % 24.0-44.0 Normal (applies to non-numeric resul ts) [facility] ([facility]) Gillespie % 10.8 % 0.0-5.0 Above high normal [facility] ([facility]) Baso % 1.5 % 0.0-1.0 Above high normal [facility] ([facility]) Immature Granulocyte % 0.3 % 0-3.0 Normal (applies to non-n umeric results) [facility] ([facility]) Eos % 2.8 % 0.0-3.0 Normal (applies to non-numeric resul ts) [facility] ([facility]) Lymph # 1.3 10 1.5-5.0 Below low normal [facility] ( [facility]) Nucleated Red Blood Cell % 0.0 % 0-0 Normal (applies to n on-numeric results) [facility] ([facility]) Neutrophils # 2.0 10 1.5-8.5 Normal (applies to non-numeric re sults) [facility] ([facility]) Eos # 0.1 10 0.0-0.5 Normal (applies to non-numeric resul ts) [facility] ([facility]) Gillespie # 0.4 10 0.0-0.8 Normal (applies to non-numeric resul ts) [facility] ([facility]) Baso # 0.1 10 0.0-0.2 Normal (applies to non-numeric resul ts) [facility] ([facility]) ID Date Data Source [id number] 07/28/2019 09:30:00 AM EST [facility] ([facility]) Name Value Range Interpretation Code Description Data Sherron rce(s) Supporting Document(s) Cholesterol Level 314 mg/dL Above high normal [facility] ([facility]) Triglycerides Level 55 mg/dL Normal (applies to non-nume patricia results) [facility] ([facility]) HDL Cholesterol 101 mg/dL Normal (applies to non-numeric results) [facility] ([facility]) LDL Cholesterol 202 mg/dL Above high normal ME DENT ([facility]) Non-HDL-C 213 mg/dL Normal (applies to non-numeric resul ts) [facility] ([facility]) Cholesterol Risk Ratio 3.108 Normal (applies to non-n umeric results) [facility] ID Date Data Source [id number] 07/28/2019 09:30:00 AM EST [facility] ([facility]) Name Value Range Interpretation Code Description Data Sherron rce(s) Supporting Document(s) Hemoglobin A1c 6.1 % Normal (applies to non-numeric r esults) [facility]) REFERENCE RANGES: 4.5-5.6% NORMAL 5.7-6.4% SUGGESTS IMPAIRED GLUCOSE META BOLISM >= 6.5% ABNORMAL Estimated Average Glucose 128 mg/dL 60-110 Above high normal [facility] ([facility]) ID Date Data Source [id number] 07/28/2019 09:30:00 AM EST [facility] ([facility]) Name Value Range Interpretation Code Description Data Sherron rce(s) Supporting Document(s) Glucose, Fasting 111 mg/dL 70-100 Above high normal M [facility] ([facility]) Blood Urea Nitrogen 12 mg/dL 7-18 Normal (applies to non-nume patricia results) [facility] ([facility]) Creatinine For GFR 0.71 mg/dL 0.55-1.30 Normal (applies to non -numeric results) [facility] ([facility]) Glomerular Filtration Rate > 60.0 Normal (applies to n on-numeric results) [facility] ([facility]) <content>Units are mL/min/1.73 m2</content>
<content></content>
<content>Chronic Kidney Disease Staging per NKF:</content>
<content></content>
<content>Stage I & II GFR >=60 Normal to Mildly Decreased</content>
<content>Stage III GFR 30- 59 Moderately Decreased</content>
<content>Stage IV GFR 15-29 Severely Decreased</content>
<content>Stage V GFR <15 Very Little GFR Left</content>
<content>ESRD GFR <15 on [employer]</content>
<content></content> Sodium Level 137 meq/L 136-145 Normal (applies to non-numeric res ults) [facility] ([facility]) Potassium Serum 5.0 meq/L 3.5-5.1 Normal (applies to non-numeric results) [facility] ([facility]) Chloride Level 102 meq/L 98-107 Normal (applies to non-numeric r esults) [facility] ([facility]) Anion Gap 6 meq/L 8-16 Below low normal [facility] ( [facility]) Carbon Dioxide Level 29 meq/L 21-32 Normal (applies to non-num davonte results) [facility] ([facility]) Calcium Level 9.8 mg/dL 8.8-10.2 Normal (applies to non-numeric re sults) [facility] ([facility]) Alt/SGPT 20 U/L 12-78 Normal (applies to non-numeric resul ts) [facility] ([facility]) Ast/Sgot 10 U/L 7-37 Normal (applies to non-numeric resul ts) [facility] ([facility]) Bilirubin,Total 0.5 mg/dL 0.2-1.0 Normal (applies to non-numeric results) [facility] ([facility]) Alkaline Phosphatase 37 U/L 45-117 Below low normal [facility] ([facility]) Albumin 3.8 GM/DL 3.2-5.2 Normal (applies to non-numeric resul ts) [facility] ([facility]) Albumin/Globulin Ratio 1.27 1.00-1.93 Normal (applies to non-numeric results) [facility] ([facility]) Total Protein 6.8 GM/DL 6.4-8.2 Normal (applies to non-numeric re sults) [facility] ([facility]) Procedure Social History Code Duration Value Status Description Data Source(s ) Smoking 09/10/2020 12:00:00 AM EST Patient has never smoked co mpleted Patient has never smoked [facility] ([facility]) Alcohol intake 04/03/2020 12:00:00 AM EDT Current drinker of al cohol (finding) completed Current drinker of alcohol (finding) [facility] Tobacco use and exposure 04/03/2020 12:00:00 AM EDT Never used co mpleted Never used [facility] Smoking 04/03/2020 12:00:00 AM EDT Never smoker completed Never s [facility] Alcohol intake 10/17/2019 12:00:00 AM EST Current drinker of al cohol (finding) completed Current drinker of alcohol (finding) [facility] Smoking 10/17/2019 12:00:00 AM EST Never smoker completed Never s [facility] Alcohol intake 09/19/2019 12:00:00 AM EST Current drinker of al cohol (finding) completed Current drinker of alcohol (finding) [facility] Smoking 09/19/2019 12:00:00 AM EST Never smoker completed Never s [facility] Alcohol intake 08/29/2019 12:00:00 AM EST Current drinker of al cohol (finding) completed Current drinker of alcohol (finding) [facility] Smoking 08/29/2019 12:00:00 AM EST Never smoker completed Never s [facility] Alcohol intake 08/07/2019 12:00:00 AM EST Current drinker of al cohol (finding) completed Current drinker of alcohol (finding) [facility] Smoking 08/07/2019 12:00:00 AM EST Never smoker completed Never s [facility] Vital Signs ID Date Data Source UNK Name Value Range Interpretation Code Description Data Source(s) Beyer body weight 135 [lb_av] 135 [lb_av] [facility] T ([facility]) Oxygen saturation in Arterial blood by Pulse oximetry 98 % 98 % [facility] ([facility]) Body temperature 98.0 [degF] 98.0 [degF] [facility] ([facility]) Respiratory rate 14 /min 14 /min [facility] ( [facility]) Heart rate 100 /min 100 /min [facility] ([facility]) Body mass index (BMI) [Ratio] 29.9 kg/m2 29.9 k g/m2 [facility] ([facility]) Body weight 191.00 [lb_av] 191.00 [lb_av] [facility] T ([facility]) Body height 67 [in_i] 67 [in_i] [facility] ([facility]) 5'7" Diastolic blood pressure 72 mm[Hg] 72 mm[Hg] [facility] ([facility]) Systolic blood pressure 160 mm[Hg] 160 mm[Hg] M [facility] ([facility]) Beyer body weight 135 [lb_av] 135 [lb_av] [facility] T ([facility]) Oxygen saturation in Arterial blood by Pulse oximetry 98 % 98 % [facility] ([facility]) Body temperature 98.0 [degF] 98.0 [degF] [facility] ([facility]) Respiratory rate 18 /min 18 /min [facility] ( [facility]) Heart rate 97 /min 97 /min [facility] ([facility]) Body mass index (BMI) [Ratio] 31.2 kg/m2 31.2 k g/m2 [facility] ([facility]) Body weight 199.00 [lb_av] 199.00 [lb_av] [facility] ([facility]) Body height 67 [in_i] 67 [in_i] [facility] ([facility]) 5'7" Diastolic blood pressure 84 mm[Hg] 84 mm[Hg] [facility] ([facility]) Systolic blood pressure 166 mm[Hg] 166 mm[Hg] M [facility] ([facility]) Beyer body weight 135 [lb_av] 135 [lb_av] [facility] T ([facility]) Oxygen saturation in Arterial blood by Pulse oximetry 99 % 99 % [facility] ([facility]) Body temperature 98.1 [degF] 98.1 [degF] [facility] ([facility]) Respiratory rate 18 /min 18 /min [facility] ( [facility]) Heart rate 94 /min 94 /min [facility] ([facility]) Body mass index (BMI) [Ratio] 30.0 kg/m2 30.0 k g/m2 [facility] ([facility]) Body weight 191.25 [lb_av] 191.25 [lb_av] [facility] T ([facility]) Body height 67 [in_i] 67 [in_i] [facility] ([facility] 5'7" Diastolic blood pressure 76 mm[Hg] 76 mm[Hg] [facility] ([facility]) Systolic blood pressure 124 mm[Hg] 124 mm[Hg] M [facility] ([facility]) Oxygen saturation in Arterial blood by Pulse oximetry 99 % 99 % [facility] Body temperature 99.1 [degF] 99.1 [degF] [facility] ([facility]) Respiratory rate 18 /min 18 /min [facility] ( [facility]) Heart rate 53 /min 53 /min [facility] ([facility]) Body mass index (BMI) [Ratio] 30.2 kg/m2 30.2 k g/m2 [facility] ([facility]) Body weight 193.12 [lb_av] 193.12 [lb_av] [facility] T ([facility]) Body height 67 [in_i] 67 [in_i] [facility] ([facility]) 5'7" Diastolic blood pressure 78 mm[Hg] 78 mm[Hg] [facility] ([facility]) Systolic blood pressure 136 mm[Hg] 136 mm[Hg] M EDENT ([facility]) Oxygen saturation in Arterial blood by Pulse oximetry 99 % 99 % [facility] ([facility]) Body temperature 98.3 [degF] 98.3 [degF] [facility] Respiratory rate 16 /min 16 /min [facility] ( [facility]) Heart rate 90 /min 90 /min [facility] ([facility]) Body mass index (BMI) [Ratio] 30.0 kg/m2 30.0 k g/m2 [facility]) Body weight 191.38 [lb_av] 191.38 [lb_av] [facility] T ([facility]) Body height 67 [in_i] 67 [in_i] [facility] ([facility]) 5'7" Diastolic blood pressure 74 mm[Hg] 74 mm[Hg] [facility] ([facility]) Systolic blood pressure 122 mm[Hg] 122 mm[Hg] M [facility] ([facility]) Patient Treatment Plan of Care Planned Activity Planned Date Details Description Data Source (s) Amoxicillin 500 MG Oral Capsule 01/29/2020 12:00:00 AM [facility] Rosuvastatin calcium 5 MG Oral Tablet 08/31/2019 09:00:[address] [facility] Aspirin 81 MG Oral Tablet 08/31/2019 12:00:[address] [facility] Multivital 08/31/2019 12:00:00 AM EST [facility] Losartan Potassium 50 MG 08/31/2019 12:00:00 AM [facility] Levothyroxine Sodium 75 MCG 08/31/2019 12:00:00 AM EST [facility] Fish Oil 875 MG 08/31/2019 12:00:00 AM EST [facility] ([facility]) Docusate Sodium 100 MG 08/31/2019 12:00:00 AM EST [facility]) Crestor 5 MG 08/31/2019 12:00:00 AM EST N [facility] ([facility]) Calcium 600+D 600-400 MG-UNIT 08/31/2019 12:00:00 AM EST [facility] ([facility]) Aspirin 81 MG 08/31/2019 12:00:00 [facility] Acetaminophen Extra Strength 500 MG 08/31/2019 12:00:00 AM [facility] ([facility]) Osteo Bi-Flex Adv Joint Shield 08/31/2019 12:00:00 AM [facility] ([facility]) Losartan Potassium 25 MG Oral Tablet 08/30/2019 09:00:[address] [facility] Oxycodone Hydrochloride 5 MG Oral Tablet 08/30/2019 12:00:[address] [facility] Docusate Sodium 100 MG Oral Capsule 08/30/2019 12:00:[address] [facility] Acetaminophen 325 MG Oral Tablet 08/30/2019 12:00:[address] [facility] Oxycodone Hydrochloride 5 MG Oral Tablet 08/28/2019 12:07:[address] [facility] fentaNYL (SUBLIMAZE) (PF) injection 25 mcg 08/28/2019 12:07:03 PM E [facility] metaxalone 800 MG Oral Tablet 08/28/2019 12:07:[address] [facility] Bisacodyl 10 MG Rectal Suppository 08/28/2019 12:07:[address] [facility] Magnesium Hydroxide 80 MG/ML Oral Suspension 08/28/2019 12:07:[address] [facility] sodium phosphate 67.8 MG/ML / Sodium Phosphate, Monoba sic 185 MG/ML Enema 08/28/2019 12:07:03 PM [facility] Aspirin 81 MG Oral Tablet [facility]
[2020-09-11] MEDS ORDERED: NS 1,000 ML IV ONE (22:30)
[2020-09-11 23:17] LABS: BASO # 0.1 10^3/uL (0.0-0.2); EOS # 0.2 10^3/uL (0.0-0.5); EOS % 2.5 % (0.0-3.0); HEMATOCRIT 38.7 % (36.0-47.0); HEMOGLOBIN 12.9 g/dl (12.0-15.5); LYMPH # 1.8 10^3/uL (1.5-5.0); LYMPH % 29.3 % (24.0-44.0); MEAN CORPUSCULAR HEMOGLOBIN 30.7 pg (27.0-33.0); MEAN CORPUSCULAR HGB CONC 33.3 g/dl (32.0-36.5); MEAN CORPUSCULAR VOLUME 92.1 fl (80.0-96.0); MONO # 0.6 10^3/uL (0.0-0.8); MONO % 9.5 % (0.0-5.0); NEUTROPHILS # 3.5 10^3/uL (1.5-8.5); NEUTROPHILS % 57.5 % (36.0-66.0); PLATELET COUNT, AUTOMATED 241 10^3/uL (150-450); WHITE BLOOD COUNT 6.1 10^3/uL (4.0-10.0)
--- OUTSIDE RECORDS SUMMARY | 2020-09-11 23:38 | CCD ---
Author Author [facility] Organization [facility] Address Unknown Phone Unavailable Support Name Relationship Address Phone RE Next Of Kin Unknown Unavailable UE Next Of Kin Unknown Unavailable GEORGES RONEL Next Of Kin [id number] [place] [address] Care Team Providers Care Landscape Account Manager Name Role Phone Ellis Ruiz Unavailable Unavailable [...] Unavailable Unavailable LORRAINE, BIANKA MD Unavailable Unavailable LORRANIE, BIANKA MD Unavailable Unavailable LORRAINE, BIANKA MD [...] Unavailable Unavailable LUCAS-ALMA, ROSIE DO Unavailable Unavailable LUACS-ALMA, ROSIE DO Unavailable Unavailable LUCAS-ALMA, ROSIE DO [...] Unavailable LUCAS-ALMA, ROSIE DO Unavailable Unavailable LUCAS-ALMA, RSOIE DO Unavailable Unavailable LUCAS-ALMA, ROSIE DO Unavailable Unavailable LUCAS-ALMA, ROSIE DO Unavailable Unavailable LUCAS-ALMA, ROSIE DO Unavailable Unavailable LUCAS-ALMA, ROSIE DO Unavailable Unavailable LUCAS-ALMA, ROSIE DO Unavailable Unavailable LUCAS-ALMA, ROSIE DO Unavailable Unavailable LUCAS-ALMA, ROSIE DO Unavailable Unavailable LUCAS-ALMA, ORSIE DO Unavailable Unavailable LUCAS-ALMA, ROSIE DO Unavailable [...] A Pierre PA Unavailable Unavailable O'radha, A Peirre PA Unavailable Unavailable O'radha, A Pierre PA [...] is protected by Article 27-F of the [facility] Public Health law. If you continue you may have access to information: Regarding HIV / AIDS; Provided by facilities licensed or operated by the [facility] Office of Mental Health; or Provided by the [facility] Office for People With Developmental Disabilities. If such information is present, then the following [facility] mandated warning applies: This information has [...] law may result in a fine or fci sentence or both. A general authorization for the release of medical or other information is NOT sufficient authorization for further disc losure. Allergies and Adverse Reactions Type Description Substance Reaction Status Data Source(s ) Drug Class NO KNOWN ALLERGIES NO KNOWN ALLERGIES [facility] No Known Drug Allergies No Known Drug Allergies No Known Drug Aller gies active NETSMART ([facility] ) Family History Family Member Name Family Member Gender Family Member Status Date o f Status Description Data Source(s) Unknown Male Problem MEDENT ([facility]) Unknown Male Problem [facility] ([facility]) Unknown Female Problem MEDENT ([facility]) Encounters Encounter Providers Location Date Indications Data Source(s ) Outpatient Attender: ROSIE DALEY DO [facility] 09/10/2020 09:40:00 AM EST [facility] ([facility] Outpatient Attender: Lux JOSHI 09/03/2020 12:00:00 AM EST [facility] Outpatient Attender: ROSIE DALEY [facility] 08/20/2020 03:00:00 PM EST [facility] ([facility]) Outpatient Attender: Lux JOSHI [id number] 04/03/2020 12 :00:00 AM EDT Presence of right artificial hip joint [facility] Presence of right artificial hip joint Outpatient Referrer: BIANKA PETERS MD 04/03/2020 12:00:0 0 AM EDT Presence of right artificial hip joint [facility] Presence of right artificial hip joint Outpatient Attender: BIANKA PETERS MD 03/12/2020 12:00:00 AM E [facility] Outpatient Attender: Pierre JOSHI [facility] 02/01/2020 09:30:00 AM EDT MEDENT ([facility]) Outpatient Attender: BIANKA PETERS MD 01/23/2020 12:00:00 AM E [facility] Outpatient Attender: Lux JOSHI 12/19/2019 12:00:00 AM EDT [facility] Outpatient Attender: BIANKA PETERS MD [id number] 0 12:00:00 AM EST - 10/17/2019 02:04:23 PM EST Presence of right artificial hip joint [facility] Presence of right artificial hip joint Outpatient Referrer: BIANKA PETERS MD 10/17/2019 12:00:0 0 AM EST Presence of right artificial hip joint [facility] Presence of right artificial hip joint Outpatient Attender: BIANKA PETERS MD [id number] 0 12:00:00 AM EST - 10/12/2019 07:51:28 AM EST Unilateral primary osteoarthritis, right [facility] Unilateral primary osteoarthritis, right hip Outpatient Referrer: BIANKA PETERS MD 09/19/2019 12:00:0 0 AM EST Unilateral primary osteoarthritis, right [facility] Unilateral primary osteoarthritis, right hip Outpatient Attender: BIANKA PETERS MD 09/12/2019 12:00:00 AM E [facility] Outpatient Attender: BIANKA PETERS MD 09/05/2019 12:00:00 AM E [facility] Outpatient Attender: Sumanth JOSHI [facility] 09/04/2019 01:40:00 PM EST MEDENT ([facility]) 08/31/2019 12:00:00 AM EST - 020 08:44:15 AM EST [employer] [facility] ([facility]) Inpatient Attender: BIANKA PETERS MDAdmitter: BIANKA PETERS MD [id number] 08/28/2019 12:00:00 AM EST - 08/30/2019 02:57:00 PM EST Unilateral primary osteoarthritis, right [facility] Unilateral primary osteoarthritis, right hip Patient discharged. Outpatient Attender: BIANKA PETERS MDReferrer: BIANKA PETERS MD 08/07/2019 12:00:00 AM EST - 08/08/2019 12:00:00 AM EST [facility] Outpatient Referrer: BIANKA PETERS MD 08/07/2019 12:00:0 0 AM EST Unilateral primary osteoarthritis, right [facility] Unilateral primary osteoarthritis, right hip Outpatient 08/07/2019 12:00:00 AM [facility] Outpatient Attender: Pierre JOSHI [facility] 07/31/2019 10:00:00 AM EST MEDENT ([facility]) Outpatient Referrer: BIANKA PETERS MD 06/29/2019 12:00:0 0 AM EST Pain in right [facility] Pain in right hip Immunizations Vaccine [...] 12:00:00 A M EST ORAL completed MEDENT ([facility]) 500 mg 01/31/2020 12:00:00 AM EDT tablet [...] by mouth 1 hour prior to procedure [facility] 500 mg 01/29/2020 12:00:00 AM EDT capsule [...] Yocasta 08/31/19 at 0900, For 30 days [facility] Medication administered onsite Aspirin 81 MG Oral Tablet Aspirin 81 MG Oral Tablet 08/31/2019 1 2:00:00 AM EST 81 mg Oral active Take 1 tablet by mouth daily [facility] Crestor 5 MG Crestor 08/31/2019 12:00:00 AM EST co mpleted NETSMART ([facility]) Docusate Sodium 100 MG Docusate Sodium 08/31/2019 12:00:00 AM EST completed [facility] ([facility]) Fish Oil 875 MG Fish Oil 08/31/2019 12:00:00 AM EST completed [facility]SM[facility] ([facility]) Levothyroxine Sodium 75 MCG Levothyroxine Sodium 08/31/2019 12:00:00 AM EST completed [facility]SMART ( [facility]) Losartan Potassium 50 MG Losartan Potassium 08/31/2019 12:00:00 AM EST completed [facility] ([facility]) Multivital Multivital 08/31/2019 12:00:00 AM EST c ompleted NETSMART ([facility]) Osteo Bi-Flex Adv Joint Shield Osteo Bi-Flex Adv Joint Shiel d 08/31/2019 12:00:00 AM EST completed [facility]SMART ([facility]) Aspirin 81 MG Aspirin 08/31/2019 12:00:00 AM EST c ompleted NETSMART ([facility]) Acetaminophen Extra Strength 500 MG Acetaminophen Extra Stre ngth 08/31/2019 12:00:00 AM EST completed [facility]SMART ([facility]) Calcium 600+D 600-400 MG-UNIT Calcium 600+D 08/31/2019 12:00:00 AM EST completed [facility]SM[facility] ([facility]) Losartan Potassium 25 MG Oral Tablet losartan (COZAAR) tablet 50 mg losartan (COZAAR) tablet 50 mg 08/30/2019 09:00:00 AM EST 50 mg Oral active 50 mg, Oral, Daily Standard, First dose (after last modification) on Wed08/30/19 at 0900, For 30 days
Check vital signs before administering
[facility] Medication administered onsite Acetaminophen 325 MG Oral Tablet Acetaminophen 325 MG Oral T ablet 08/30/2019 12:00:00 AM EST 650 mg Oral active Take 2 tablets by mouth every 6 (six) hours as needed (mild pain) for up to 10 days [facility] Oxycodone Hydrochloride 5 MG Oral Tablet oxyCODONE HCl 5 MG Oral Tablet (ROXICODONE) oxyCODONE HCl 5 MG Oral Tablet (ROXICODONE) 08/30/2019 12:00:00 AM EST Oral active Take 1-2 tablets by mouth every 4 (four) hours as needed (moderate to severe pain) for up to 7 days, Max Daily Dose: 8 tablets [facility] Docusate Sodium 100 MG Oral Capsule Docu sate Sodium 100 MG Oral Capsule (COLACE) Docusate Sodium 100 MG Oral Capsule (COLACE) 08/30/2019 12:00:00 AM EST 100 mg Oral active Take 1 cap ledy by mouth Two times daily as needed for Constipation for up to 10 days [facility] MAGNESIUM GLUCONATE 500 MG Oral Tablet m agnesium gluconate (MAGONATE) tablet TABS 500 mg magnesium gluconate (MAGONATE) tablet TABS 500 mg 08/16 09:00:00 AM EST 500 mg Oral active 500 mg, Oral, Daily Standard, First dose on Wed08/29/19 at 0900, For 30 days [facility] Medication administered onsite 0.4 ML Enoxaparin sodium 100 MG/ML Prefi lled Syringe enoxaparin sodium (LOVENOX) injection 40 mg enoxaparin sodium (LOVENOX) injection 40 mg 08/29/2019 09:00:00 AM EST 40 mg Subcutaneous active 40 mg, Subcutaneous, Daily Standard, First dose on Wed08/29/19 at 0900, For 30 days [facility] Medication administered onsite sodium chloride 0.9 % bolus 500 mL [id number] 08/29/2019 07:15:00 AM EST 500 mL Intravenous completed 500 mL, Intravenous, Once, Wed08/29/19 at 0715, For 1 dose [facility] Medication administered onsite Levothyroxine Sodium 0.075 MG Oral Table t levothyroxine (SYNTHROID, LEVOTHROID) tablet 75 mcg levothyroxine (SYNTHROID, LEVOTHROID) tablet 75 mcg 06:00:00 AM EST 75 ug Oral active 75 mcg, Oral, Daily at 0600, First dose on Wed08/29/19 at 0600, For 30 days [facility] Medication administered onsite sennosides, LONG-TERM 8.6 MG Oral Tablet senna 8.6 MG 2 tablet sen na 8.6 MG 2 tablet 08/28/2019 10:00:00 PM EST 2 {tbl} Oral active 2 tablet, Oral, Nightly, First dose on Wed08/28/19 at 2200, For 30 days [facility] Medication administered onsite sodium chloride 0.9 % bolus 500 mL [id number] 08/28/2019 09:15:00 PM EST 500 mL Intravenous completed 500 mL, Intravenous, Once, Wed08/28/19 at 2115, For 1 dose [facility] Medication administered onsite Docusate Sodium 100 MG Oral Capsule docusate sodium (C OLACE) capsule 100 mg docusate sodium (COLACE) capsule 100 mg 08/28/2019 09:00:00 PM EST 100 mg Oral active 100 mg, Oral, 2 Times Daily, First dose on Wed08/28/19 at 2100, For 30 days [facility] Medication administered onsite 2 ML Metoclopramide 5 MG/ML Prefilled Sy ringe metoclopramide (REGLAN) injection 10 mg metoclopramide (REGLAN) injection 10 mg 08/28/2019 06:08:[address] 10 mg Intravenous active 10 mg, I ntravenous, Every 6 hours PRN, Nausea, Starting Wed08/28/19 at 1808, For 30 days [facility] Medication administered onsite sodium chloride (preservative free) [...] 1207, For 30 days [Order 6 End] [facility] Medication administered onsite Cefazolin 2000 MG Injection ceFAZolin (ANCEF) IVPB 2 g in dextrose (premix) ceFAZolin (ANCEF) IVPB 2 g in dextrose (premix) 08/28/2019 05:00:00 PM EST 2 g Intravenous completed 2 g, Int ravenous, Administer over 30 Minutes, Every 8 hours, First dose on Wed08/28/19 at 1700, For 2 doses [facility] Medication administered onsite Bisacodyl 10 MG Rectal Suppository bisacodyl (DULCOLAX ) suppository 10 mg bisacodyl (DULCOLAX) suppository 10 mg 08/28/2019 12:07:03 PM EST 10 mg Rectal active 10 mg, Rectal, Daily PRN, Constipation, Starting Wed08/28/19 at 1207, For 30 days [facility] Medication administered onsite Magnesium Hydroxide 80 MG/ML Oral Suspen silverio magnesium hydroxide (MILK OF MAGNESIA) 400 MG/5ML suspension 30 mL magnesium hydroxide (MILK OF MAGNESIA) 4 00 MG/5ML suspension 30 mL 08/28/2019 12:07:03 PM EST 30 mL Oral active 30 mL, Oral, Nightly PRN, Constipation, Starting Wed08/28/19 at 1207, For 30 days
If serum creatinine > 2 notify provider before administering.
[facility] Medication administered onsite Acetaminophen 325 MG Oral [...] mg from all sources in 24 hours.
[facility] Medication administered onsite Oxycodone Hydrochloride 5 MG Oral Tablet oxyCODONE (ROXICODONE) immediate release tablet 5 mg oxyCODONE (ROXICODONE) immediate release tablet 5 mg 08/28/2019 12:07:03 PM EST 5 mg Oral active 5 mg, Oral, Every 4 hours PRN, Moderate Pain (Pain Scale Score 4-6), Starting Wed08/28/19 at 1207, For 3 days
If no BLOW UP OPERATOR or when BLOW UP OPERATOR has been DC.
Oxycodone immediate release is limited to 10 mg per dose. Higher doses ( only) require Pain Service consultation and approval.
[facility] Medication administered onsite Oxycodone Hydrochloride 5 MG Oral Tablet oxyCODONE (ROXICODONE) immediate release tablet 10 mg oxyCODONE (ROXICODONE) immediate release tablet 10 mg 08/28/2019 12:07:03 PM EST 10 mg Oral active 10 mg, Oral, Every 4 hours PRN, Severe Pain (Pain Scale Score 7-10), or pre-painful procedure or activity, Starting Wed08/28/19 at 1207, For 3 days
If no BLOW UP OPERATOR or when BLOW UP OPERATOR has been DC.
Oxycodone immediate release is limited to 10 mg per dose. Higher doses ( only) require Pain Service consultation and approval.
[facility] Medication administered onsite fentaNYL (SUBLIMAZE) (PF) injection 25 mcg [id number] 08/28/2019 12:07:03 PM EST 25 ug Intravenous active 25 m cg, Intravenous, Every 2 hours PRN, breakthrough pain, Starting Wed08/28/19 at 1207, For 3 days [facility] Medication administered onsite metaxalone 800 MG Oral Tablet metaxalone (SKELAXIN) ta blet 800 mg metaxalone (SKELAXIN) tablet 800 mg 08/28/2019 12:07:03 PM EST 800 mg Oral active 800 mg, Oral, Three Times Daily-PRN, Mu scle spasms, Starting Wed08/28/19 at 1207, For 30 days [facility] Medication administered onsite ondansetron (ZOFRAN) injection 4 mg [id number] 08/28/2019 12:07:0 3 PM EST 4 mg Intravenous active 4 mg, In travenous, Every 6 hours PRN, Nausea, Vomiting, Starting Wed08/28/19 at 1207, For 30 days [facility] Medication administered onsite POLYETHYLENE GLYCOL 3350 142 [...] due to potential increased risk for aspiration.
[facility] Medication administered onsite sodium phosphate 67.8 MG/ML / Sodium Kenan sphate, Monobasic 185 MG/ML Enema sodium phosphate (FLEET) enema (ADULT) 133 mL sodium phosphate (FLEET) enema (ADULT) 133 mL 08/28/2019 12:07:03 PM EST 133 mL Rectal active 133 mL, Rectal, Daily PRN, Constipation, Starting Wed08/28/19 at 1207, For 30 days [facility] Medication administered onsite NaCl infusion 0.9 % [id number] 08/28/2019 11:45:00 AM EST Intravenous active at 100 mL/hr, Intrav enous, Continuous, Starting Wed08/28/19 at 1145, For 30 days [facility] Medication administered onsite fentaNYL (SUBLIMAZE) (PF) injection 50 mcg [id number] 08/28/2019 11:19:53 AM EST 50 ug Intravenous aborted 50 m cg, Intravenous, Every 5 min PRN, Moderate Pain (Pain Scale Score 4-6), Starting Wed08/28/19 at 1119, For 4 doses, Recovery [facility] Medication administered onsite Calcium Chloride 0.0014 MEQ/ML / Potassi um Chloride 0.004 MEQ/ML / Sodium Chloride 0.103 MEQ/ML / Sodium Lactate 0.028 MEQ/ML Injectable Solution lactated ringers infusion lactated ringers infusion 08/28/2019 06:15:00 AM EST Intravenous aborted at 100 mL/hr, Intravenous, Continuous, Starting Wed08/28/19 at 0615, For 30 days
Keep Vein Open. Use Wide Tubing.
Pre-op [facility] Medication administered onsite gabapentin 100 MG Oral Capsule gabapentin (NEURONTIN) capsule 200 mg gabapentin (NEURONTIN) capsule 200 mg 08/28/2019 06:15:00 AM EST 200 mg Oral completed 200 mg, Oral, Once, Wed08/28/19 at 0615, For 1 dose, Pre-op [facility] Medication administered onsite bupivacaine (MARCAINE) 0.25 % 20 mL, morphine sulfate (PF) 1 0 mg syringe 08/28/2019 06:15:00 AM EST Infiltration complete d Infiltration, Once, Wed08/28/19 at 0615, For 1 dose, Pre-op [facility] Medication administered onsite Acetaminophen 325 MG Oral Tablet acetaminophen (TYLENO L) tablet 975 mg acetaminophen (TYLENOL) tablet 975 mg 08/28/2019 06:15:00 AM EST 97 5 mg Oral completed 975 mg, Oral, O nce, Wed08/28/19 at 0615, For 1 dose, Pre- op
Maximum daily dose of acetaminophen is 3,000 mg from all sources in 24 hours.
[facility] Medication administered onsite celecoxib 100 MG Oral Capsule celecoxib (CELEBREX) cap ledy 100 mg celecoxib (CELEBREX) capsule 100 mg 08/28/2019 06:15:00 AM EST 100 mg Oral completed 100 mg, Oral, Once, Wed08/28/19 at 0615, For 1 dose, Pre-op [facility] Medication administered onsite Aspirin 81 MG Oral Tablet Aspirin 81 MG Oral Tablet 81 mg Oral aborted Take 81 mg by mouth daily [facility] Insurance Providers Payer name Policy type / Coverage type Policy ID Covered libertarian ID Covered libertarian's relationship to delgado Policy Delgado Plan Information MEDICARE COMPLETE [id number] SP [id number] MEDICARE COMPLETE[facility] O [id number] S [id number] [facility] MEDICARE COMPLETE G [id number] Self [id number] [facility] MEDICARE COMPLETE G [id number] Self [id number] [facility] ([facility]) Commercial [id number] Self [id number] [email or web address] U/W Commercial [id number] Self [id number] [email or web address] U/W Commercial [id number] Self [id number] [facility] Medicare Solutions Medigap Part B [id number] Self [id number] [employer] U/W Commercial [id number] Self [id number] [employer] U/W Commercial [id number] Self [id number] MEDICARE COMPLETE [id number] SP [id number] MEDICARE COMPLETE [id number] SP [id number] MEDICARE COMPLETE [id number] SP [id number] [employer] [place] [id number] SP [id number] [facility] EEme, [facility] Commercial [id number] Self [id number] MEDICARE COMPLETE-UHC O [id number] S [id number] [place] [facility] Commercial [id number] Self [id number] [place] [employer] [facility]) Commercial [id number] Self [id number] MEDICARE COMPLETE [id number] SP [id number] [facility] EEme, [facility] Commercial [id number] Self [id number] [facility] Medicare Solutions Medigap Part B [id number] Self [id number] [employer] U/[employer] Commercial [id number] Self [id number] [employer] U/W Commercial [id number] Self [id number] [facility] Medicare Solutions Medigap Part B [id number] Self [id number] [employer] U/[employer] Commercial [id number] Self [id number] [employer] U/W Commercial [id number] Self [id number] MEDICARE COMPLETE-UHC O UNAVAILABLE S UNAVAILABLE [facility] Medicare Solutions Medigap Part B [id number] Self [id number] [employer] U/[employer] Commercial [id number] Self [id number] [employer] U/W Commercial [id number] Self [id number] [employer] U/W Commercial [id number] Self [id number] [employer] [place] [id number] SP [id number] [place]BS [place] PPO 302/307 [id number] SP [id number] [place]BS [place] PPO 302/307 [id number] SP [id number] BCBS [employer] Ppo U/W Medigap Part [id number] Family Dependent [id number] [place] [employer] Ppo Commercial [id number] Family Dep endent [id number] [facility] U/W Commercial [id number] Self [id number] BCBS [place] PPO 302/307 [id number] SP [id number] [facility] [employer] [facility] U/W Commercial Self BCBS OF [place] 332/834 [id number] SP [id number] Problems, Conditions, and Diagnoses Code Display Name Description Problem Type Effective Dates Data Source(s) J45.909 Unspecified asthma, uncomplicated Unspecified as thma, uncomplicated Problem 08/30/2019 12:00:00 AM EST NETSMART ([facility]) Z91.81 History of falling History of falling Problem 0 12:00:00 AM EST [facility]SMART ([facility]) 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 Problem 08/30/2019 12:00:00 AM EST [facility]SMART ([facility]) Z96.641 Presence of right artificial hip joint P resence of right artificial hip joint Problem 08/30/2019 12:00:00 AM EST [facility] ([facility]) M15.0 Primary generalized (osteo)arthritis Primary gen eralized (osteo)arthritis Problem 08/09/2019 12:00:00 AM EST NETSMART ([facility]) Z47.1 Aftercare following joint replacement sales rgery Aftercare following joint replacement surgery Problem 08/09/2019 12:00:00 AM EST [facility]SMART ([facility]) Z96.641 Presence of right artificial hip joint P resence of right artificial hip joint Diagnosis 04/03/2020 09:08:49 AM EDT [facility] M16.11 Unilateral primary osteoarthritis, right hip Unilateral primary osteoarthritis, right hip Diagnosis 08/28/2019 11:35:36 AM EST [facility] M16.9 Osteoarthritis of hip, unspecified Osteoarthriti s of hip, unspecified Diagnosis 08/28/2019 05:40:00 AM [facility] OA (osteoarthritis) of hip OA (osteoarthritis) of hip Diagnosis 08/28/2019 05:40:00 AM [facility] Primary osteoarthritis of right hip [M16 .11] Primary osteoarthritis of right hip [M16.11] Diagnosis 08/28/2019 05:40:00 AM [facility] Surgeries/Procedures Procedure Description Date Indications Data Source(s) Electrocardiogram Complete 09/04/2019 12:00:00 AM [facility] ([facility]) POCT GLUCOSE, DOCKED POCT GLUCOSE, DOCKED Routine 08/30/2019 11:49 AM EST 08/30/2019 04:49:00 PM [facility] POCT GLUCOSE, DOCKED POCT GLUCOSE, DOCKED Routine 08/30/2019 8:01 AM EST 08/30/2019 01:01:00 PM [facility] BLOOD COUNT COMPLETE AUTOMATED CBC Routine 08/30/2019 5:01 A M EST 08/30/2019 10:01:00 AM [facility] GLUCOSE QUANTITATIVE BLOOD XCPT REAGENT STRIP POCT GLUCOSE, DOC KED Routine 08/29/2019 9:41 PM EST 08/30/2019 02:41:00 AM [facility] GLUCOSE QUANTITATIVE BLOOD XCPT REAGENT STRIP POCT GLUCOSE, DOC KED Routine 08/29/2019 4:37 PM EST 08/29/2019 09:37:00 PM [facility] GLUCOSE QUANTITATIVE BLOOD XCPT REAGENT STRIP POCT GLUCOSE, DOC KED Routine 08/29/2019 12:21 PM EST 08/29/2019 05:21:00 PM [facility] GLUCOSE QUANTITATIVE BLOOD XCPT REAGENT STRIP POCT GLUCOSE, DOC KED Routine 08/29/2019 8:35 AM EST 08/29/2019 01:35:00 PM [facility] HEPATITIS C ANTIBODY HEPATITIS C ANTIBODY Routine 08/29/2019 5:45 AM EST 08/29/2019 10:45:00 AM [facility] BLOOD COUNT COMPLETE AUTOMATED CBC Routine 08/29/2019 5:45 A M EST 08/29/2019 10:45:00 AM [facility] BASIC METABOLIC PANEL CALCIUM TOTAL BASIC METABOLIC PANEL Routi ne 08/29/2019 5:45 AM EST 08/29/2019 10:45:00 AM [facility] GLUCOSE QUANTITATIVE BLOOD XCPT REAGENT STRIP POCT GLUCOSE, DOC HARLEEN Routine 08/28/2019 9:04 PM EST 08/29/2019 02:04:00 AM [facility] GLUCOSE QUANTITATIVE BLOOD XCPT REAGENT STRIP POCT GLUCOSE, LOGAN CANSECO Routine 08/28/2019 4:56 PM EST 08/28/2019 09:56:00 PM [facility] GLUCOSE QUANTITATIVE BLOOD XCPT REAGENT STRIP POCT GLUCOSE, LOGAN CANSECO Routine 08/28/2019 12:21 PM EST 08/28/2019 05:21:00 PM [facility] RADIOLOGIC EXAMINATION PELVIS 1/2 VIEWS XR PELVIS 1-2 VIEWS 721 70 Routine 08/28/2019 11:53 AM EST 08/28/2019 04:53:10 PM [facility] LEVEL I SURG PATHOLOGY GROSS EXAMINATION ONLY SURGICA L PATHOLOGY EXAM ([facility] ONLY) Routine 08/28/2019 11:10 AM EST 08/28/2019 04:10:00 PM [facility] [id number] ARTHROPLASTY, ACETABULAR/PROXIMAL FEMORAL PROSTHETIC REPLACEMENT, W/WO AUTOGRAFT/ALLOGRAFT [id number] ARTHROPLASTY, ACETABULAR/PROXIMAL FEMORAL PROSTHETIC REPLACEMENT, W/WO AUTOGRAFT/ALLOGRAFT 08/28/2019 9:27 AM ES T Primary osteoarthritis of right hip 08/28/2019 02:27:0 0 PM EST - 08/28/2019 04:58:00 PM EST Primary osteoarthritis of right hip [facility] Primary osteoarthritis of right hip US GUIDED PERIPHERAL NERVE BLOCK (OR ONLY) US GUIDED PERIPHERAL NERVE BLOCK (OR ONLY) Routine 08/28/2019 7:38 AM EST 08/28/2019 12:38 :00 PM [facility] GLUCOSE QUANTITATIVE BLOOD XCPT REAGENT STRIP POCT GLUCOSE, LOGAN CANSECO Routine 08/28/2019 6:55 AM EST 08/28/2019 11:55:00 AM [facility] BLOOD TYPING ABO TYPE AND SCREEN Routine 08/07/2019 11:46 AM EST Preop examination 08/07/2019 04:46:00 PM EST Preop examination U [facility] Preop examination Electrocardiogram Complete 07/31/2019 12:00:00 AM EST [facility] ([facility]) Results ID Date Data Source [id number] 09/11/2020 12:00:00 AM EST [facility] Imaging Rosie Lucas Bond DO Patient Name: VINAY [id number] Date of : 1950 1 [facility]: [facility] [place] [id number] Fax: [phone] EXAM: CT ANGIOGRAPHY, CHESTCLINICAL INFORMATION: [...] Other findings as described above.Accredited by the [employer] in [place].KOFFI Mckenna/Nohelia you for referring KEY SANZ to our office. Electronically Signed - DENISE JOLLY DO 09/11/20 17:26 Name Value Range Interpretation Code Description Data Sherron rce(s) Supporting Document(s) ID Date Data Source [id number] 09/09/2020 09:00:00 AM EST [facility] ([facility]) Name Value Range Interpretation Code Description Data Sherron rce(s) Supporting Document(s) Fibrin D-dimer FEU [Mass/volume] in Platelet poor plasma 519.01 ng/mL Above high normal [facility] ([facility]) ID Date Data Source [id number] 09/09/2020 09:00:00 AM EST [facility] ([facility]) Name Value Range Interpretation Code Description Data Sherron rce(s) Supporting Document(s) HDL Cholesterol 68 mg/dL Normal (applies to non-numeric results) [facility] ([facility]) Triglycerides Level 68 mg/dL Normal (applies to non-nume patricia results) [facility] ([facility]) Cholesterol Level 307 mg/dL Above high normal [facility] ([facility]) LDL Cholesterol 225 mg/dL Above high normal [facility] ([facility]) Non-HDL-C 239 mg/dL Normal (applies to non-numeric resul ts) [facility] ([facility]) Cholesterol Risk Ratio 4.514 Normal (applies to non-n umeric results) [facility] ID Date Data Source [id number] 09/09/2020 09:00:00 AM EST [facility] ([facility]) Name Value Range Interpretation Code Description Data Sherron rce(s) Supporting Document(s) Estimated Average Glucose 108 mg/dL 60-110 Normal (applies to non-numeric results) [facility] ([facility]) Hemoglobin A1c 5.4 % Normal (applies to non-numeric r esults) [facility] ([facility]) <content>REFERENCE RANGES:</content><br/ ><content></content>
<content><=5.6% NORMAL</content>
<content>5.7-6.4% SUGGESTS IMPAIRED GLUCOSE METABOLISM/PREDIABETIC</content>
<content>>= 6.5% ABNORMAL</content>
<content></content> ID Date Data Source [id number] 09/09/2020 09:00:00 AM EST [facility] ([facility]) Name Value Range Interpretation Code Description Data Sherron rce(s) Supporting Document(s) Creatinine For GFR 0.83 mg/dL 0.55-1.30 Normal (applies to non -numeric results) [facility] ([facility]) Glucose, Fasting 110 mg/dL 70-100 Above high normal [facility] ([facility]) Blood Urea Nitrogen 16 mg/dL 7-18 Normal (applies to non-nume patricia results) [facility] Sodium Level 139 meq/L 136-145 Normal (applies to non-numeric res ults) [facility] Potassium Serum 4.9 meq/L 3.5-5.1 Normal (applies to non-numeric results) [facility] Glomerular Filtration Rate Laboratory test result Normal (applies to non- numeric results) [facility] ([facility]) <content>Units are mL/min/1.73 m2</content>
<content></content>
<content>Chronic Kidney Disease Staging per NKF:</content>
<content></content>
<content>Stage I & II GFR >=60 Normal to Mildly Decreased</content>
<content>Stage III GFR 30- 59 Moderately Decreased</content>
<content>Stage IV GFR 15-29 Severely Decreased</content>
<content>Stage V GFR <15 Very Little GFR Left</content>
<content>ESRD GFR <15 on [employer]</content>
<content></content> Chloride Level 105 meq/L 98-107 Normal (applies to non-numeric r esults) [facility] ([facility]) Carbon Dioxide Level 30 meq/L 21-32 Normal (applies to non-num davonte results) [facility] ([facility]) Calcium Level 10.0 mg/dL 8.8-10.2 Normal (applies to non-numeric re sults) [facility] ([facility]) Anion Gap 4 meq/L 8-16 Below low normal [facility] Ast/Sgot 5 U/L 7-37 Below low normal [facility]) Alkaline Phosphatase 39 U/L 45-117 Below low normal [facility]) Alt/SGPT 16 U/L 12-78 Normal (applies to non-numeric resul ts) [facility] ([facility]) Bilirubin,Total 0.5 mg/dL 0.2-1.0 Normal (applies to non-numeric results) [facility] ([facility]) Total Protein 6.7 GM/DL 6.4-8.2 Normal (applies to non-numeric re sults) [facility] ([facility]) Albumin 3.8 GM/DL 3.2-5.2 Normal (applies to non-numeric resul ts) [facility] ([facility]) Albumin/Globulin Ratio 1.3 1.2-2.2 Normal (applies to non-n umeric results) [facility] ID Date Data Source [id number] 09/09/2020 09:00:00 AM EST [facility] ([facility]) Name Value Range Interpretation Code Description Data Sherron rce(s) Supporting Document(s) Thyroid Stimulating Hormone 0.387 uIU/ML 0.358-3.740 Norm al (applies to non- numeric results) [facility] Free T4 1.46 ng/dL 0.76-1.46 Normal (applies to non-numeric resul ts) [facility] ID Date Data Source [id number] 09/09/2020 09:00:00 AM EST [facility] ([facility]) Name Value Range Interpretation Code Description Data Sherron rce(s) Supporting Document(s) Calcidiol [Mass/volume] in Serum or Plasma 67.0 ng/mL 30.0- 100.0 Normal (applies to non-numeric results) [facility] ID Date Data Source [id number] 09/09/2020 09:00:00 AM EST [facility] ([facility]) Name Value Range Interpretation Code Description Data Sherron rce(s) Supporting Document(s) White Blood Count 4.8 10 4.0-10.0 Normal (applies to non-numeri c results) [facility] Hemoglobin 13.8 g/dL 12.0-15.5 Normal (applies to non-numeric resul ts) [facility] Red Blood Count 4.51 10 4.00-5.40 Normal (applies to non-numeric results) [facility] Mean Corpuscular Hemoglobin 30.6 pg 27.0-33.0 Norm al (applies to non-numeric results) [facility] Hematocrit 41.8 % 36.0-47.0 Normal (applies to non-numeric resul ts) [facility] Mean Corpuscular Volume 92.7 fl 80.0-96.0 Normal ( applies to non-numeric results) [facility] Red Cell Distribution Width 14.5 % 11.5-14.5 Norm al (applies to non-numeric results) [facility] ([facility]) Platelet Count, Automated 256 10 150-450 Normal (applies to non-numeric results) [facility] ([facility]) Mean Corpuscular HGB Conc 33.0 g/dL 32.0-36.5 Normal (applies to non-numeric results) [facility] ([facility]) Lymph % 32.6 % 24.0-44.0 Normal (applies to non-numeric resul ts) [facility] ([facility]) Neutrophils % 54.2 % 36.0-66.0 Normal (applies to non-numeric re sults) [facility] ([facility]) [place] % 8.9 % 0.0-5.0 Above high normal [facility] ([facility]) Eos % 3.1 % 0.0-3.0 Above high normal [facility] ([facility]) Immature Granulocyte % 0.2 % 0-3.0 Normal (applies to non-n umeric results) [facility] ([facility]) Baso % 1.0 % 0.0-1.0 Normal (applies to non-numeric resul ts) [facility] ([facility]) Lymph # 1.6 10 1.5-5.0 Normal (applies to non-numeric resul ts) [facility] ([facility]) Nucleated Red Blood Cell % 0.0 % 0-0 Normal (applies to n on-numeric results) [facility] ([facility]) Neutrophils # 2.6 10 1.5-8.5 Normal (applies to non-numeric re sults) [facility] ([facility]) Eos # 0.2 10 0.0-0.5 Normal (applies to non-numeric resul ts) [facility] ([facility]) Baso # 0.1 10 0.0-0.2 Normal (applies to non-numeric resul ts) [facility] ([facility]) [place] # 0.4 10 0.0-0.8 Normal (applies to non-numeric resul ts) [facility] ([facility]) ID Date Data Source [id number] 08/20/2020 02:36:00 PM EST [facility] ([facility]) Name Value Range Interpretation Code Description Data Sherron rce(s) Supporting Document(s) Respiratory Panel Laboratory test result [facility] ([facility]) This respiratory PCR panel detects Influ patria [...] SARS-CoV-2 (COVID 19) ID Date Data Source [id number] 08/20/2020 02:36:00 PM EST [facility] Name Value Range Interpretation Code Description Data [facility] rce(s) Supporting Document(s) Respiratory pathogens identified [Type] in Nasopharynx by Probe and target amplification method SARS-CoV-2 (COVID 19) [facility] [place] This lab was ordered by [facility] a nd reported by [facility]. ID Date Data Source [id number] 04/04/2020 07:18:57 AM EDT [facility] XR HIP- UNILAT, 2-3 VIEWS [id number] RE SULTInterpreted by:SCOUT WrightVIS AND RIGHT HIPCLINICAL [...] rce(s) Supporting Document(s) ID Date Data Source [id number] 04/03/2020 10:05:57 AM EDT [facility] Name Value Range Interpretation Code Description Data Sherron rce(s) Supporting Document(s) Progress Note [facility] ZAYPEy1pMkATNmJh17/MSQaoITAsm3SbJVxyQNw9FWcvOZYkZ7ToYZJ4aU7wIBN5HOtBGaVlGsNuPYA9 lbm [file] DQogICAgICAgICAgICAgICAgICAgICAgICAgICAgICAgICAgICAgICAgICAgICAgICAgICAgICAgICAg ICAgICAgICAgICAgICAgICAgICAgICAgICAgICAgIC AgICAgICAgICAgDQogICAgICAgICAgICAgICAgICAgICAgICAgICAgICAgICAgICAgICAgICAgICAgIC AgICAgICAgICAgICAgICAgICAgICAgICAgICAgICAgICAgICAgICAgICAgICAgICAgICAgDQogICAgIC AgICAgICAgICAgICAgICAgICAgICAgICAgICAgICAg ICAgICAgICAgICAgICAgICAgICAgICAgICAgICAgICAgICAgICAgICAgICAgICAgICAgICAgICAgICAg ICAgDQogICAgICAgICAgICAgICAgICAgICAgICAgICAgICAgICAgICAgICAgICAgICAgICAgICAgICAg ICAgICAgICAgICAgICAgICAgICAgICAgICAgICAgIC AgICAgICAgICAgICAgDQogICAgICAgICAgICAgICAgICAgICAgICAgICAgICAgICAgICAgICAgICAgIC AgICAgICAgICAgICAgICAgICAgICAgICAgICAgICAgICAgICAgICAgICAgICAgICAgICAgICAgDQogIC AgICAgICAgICAgICAgICAgICAgICAgICAgICAgICAg ICAgICAgICAgICAgICAgICAgICAgICAgICAgICAgICAgICAgICAgICAgICAgICAgICAgICAgICAgICAg ICAgICAgDQogICAgICAgICAgICAgICAgICAgICAgICAgICAgICAgICAgICAgICAgICAgICAgICAgICAg ICAgICAgICAgICAgICAgICAgICAgICAgICAgICAgIC AgICAgICAgICAgICAgICAgDQogICAgICAgICAgICAgICAgICAgICAgICAgICAgICAgICAgICAgICAgIC AgICAgICAgICAgICAgICAgICAgICAgICAgICAgICAgICAgICAgICAgICAgICAgICAgICAgICAgICAgDQ ogICAgICAgICAgICAgICAgICAgICAgICAgICAgICAg ICAgICAgICAgICAgICAgICAgICAgICAgICAgICAgICAgICAgICAgICAgICAgICAgICAgICAgICAgICAg ICAgICAgICAgDQogICAgICAgICAgICAgICAgICAgICAgICAgICAgICAgICAgICAgICAgICAgICAgICAg ICAgICAgICAgICAgICAgICAgICAgICAgICAgICAgIC HaRQDlGLGqDJTrOBFrINBxPFTgDPj4Y1zrFLXmTPQwXD8kOUg1Yk7+KBsJMjKmDFR5omXcpL5BCL8ff2 SjLEyqLINht2YoWEo1ZB5TDHZbDOoqFZ0SBYqifc7NNIAoYRPmjCXCa2yuUdCwZTK0SAPjInzsWZ9CQN XbN3rkwlPeWIPsCLYQNRgtCEFHZX6CPbDhJ8CemS49 IDINCj4+PTsvosBaZljVFqTrOTFjh1JwWGo6TR6QDUUcJhisw6WfILTbAWJKKCtsDZ5KHKU6ZIFaCFRe Do8UKEBdD901aeVrJP8GZw6XOxMzWN4hqe0ZOZLiPOJsBbaRUkz7QIloHS6IyHEcMLdOsj7pkmRsvfEU y2OgbmVaqOAHMH6bSQvsQNO4oYFuMakna2rlpfnmEC JdGCYmVH4zFU9lDCPsKOF2BkRbQRNWTX1ENPKuTDObsJRpOVJzUWAPFJ1YBOrpGLZ9LWZskdRupJGkBD oaXW6VFVBupfAhATZwUJKDIKc+Nc8PKI3gh6AbTWw1NaSkQY6nbg9HFWfIJePzT7Z6qRWuG5M4PGqtIi 6FCFTqNYNoJsofYFXYNNcdTJ0NSO3msaP0EX9WjYKl YWCyNXRyvJNoAXf4F07cjTQhLMyiHT3JVUH+Marcia+Qo0WORFaNHZjOROjKhQsLHTLHnZeT0RsW6OZk1At K9WvDU05tEsrjrDlDKhnJF5LKF5dHUOwSSQKEO2VxMJfiA4medU3QXLrJLAKRfPmP35dwGPxIMSkRGH5 TLHvXv5FJCOlI5YkzqLhuUthiqJaEDFrAYYMUT2ONR rkpyUtgOWfyIfjCB83dKxfGM9FTt3OIvCtRD3vwj7AvCCkSn8EVTK5Ff8OLBElAJQzGOErLMA5NNKtVe KjYZezUFWbTETbEEY8HMVfIGJcSE4BDiKwSEDqKZw9WLZpIEIhQRUiql5JHFLgQKZ3OGNgYYKjNPNjRJ WgDYucJZOlDWRzZAS8WIFfQFIxPV1QAiWuIKJjDAV8 OZKfLFBeZQJpem6QEIRrDHYpIVS7FBPkQCEtHUUdZEsyLSSbQSE6Kwa5QLTrJZVyPH9YWqIoTPKkQIM6 KXZaKHGvLQQimq2KSWMcXEJpKOr4UGQjOKIqTVBwXQufVCGtRQG8EVP2YIClHTLwEW8GRoHcCYJiJLXl WcuoCDQnQFWdfz9IFNFcNMWwPyJ2SmKbJUGmUHRgIN mpIEVrKGS2Ehk5MIZkZPPhZV1YZcCjWLLsCWc6HKPdIAJzKDUqkf3LGMYcIWHgRIf3PJCrFDDcQWBtGT heSHWzOTK2FaY3YIDnTJWgMV7DRwEpPGCyBKl0OnCvZUJsTBDxgc8UPCCgLIGpVGqkYuCrLUFvGWLvUI odXLXlDRK9CAHmTFQyFZLgRT9AAuOuLPGsQkD2YLVm VPKhPRGuui5ONCTnAIEsYDi6ONCdJMSnXENnUGczYRZeWDMeVBJ4ZTGiZRRyYF9JRsGeRQKhDoOdEXVe YWZwUWDann5SMTEoBPXgFgO3TfEgALHmFONqNMndWSJaHIUlAUAxQEVqBLCkJK1FVbEeBEOiHQE8GVrt JGChXYXubg5EBHMpQUB6YCRsWPLwGKFeZDYaXYjaZJ MiQBYfZXRyDDYdBODnIY6GVxNuITZsYJB6GXHqYJMfKRVhxw4FQJNqWNE9OTb0SXSxSRNcZNGaXCcsRU IhZQF8OGJ2HTXvYCHwEX6URqCiIWMaOEjpWqOsVUElIQXqvg6ISFXaVNW7OkX9QyAtLXRpNJBnWGutBS XvBNT5AxT2QVJaHXVwCR3RMxEcDGCfHPq9INQoVTVp IKLwgg5NMKVkCNB9YEXtXqIuWTZxWWPlKWijCCSiDMI3XsPyRXUzWEGlIX7IDiTnZHLiRBlaRQqqNKWt ZHPket8ZZJWoMOV9XVu6WKTlDTCrJSEdPBiwCACkJFFwArG0YIUpFDTpFH8CZcNwFOJsUCPbELHwJBSx GLExhc4NADQeXVN3YGT4KLSsMDNnLCLfOZz9rlJwiP GxCXz2IT7UY1LnvcXaKHPYOk8Ww611JDYfVPFfPj5BE7jpGa4rWTDqGSPRLk3ZQDd3BLAhTuWtDQD1Fi GjZpBzGbTtWsK5OoFpZKobLaJfDRS+MMh7OPCiETReZwB5VlWjYkZ4SWKoOQgrENGoRqHpBqOnJx4rLF ANCj4+SKdfdCUvtRvlVEGAHrSuDlj7JRgvCRAEIo7P ID Date Data Source [id number] 01/31/2020 08:52:00 AM EDT [facility] ([facility]) Name Value Range Interpretation Code Description Data Sherron rce(s) Supporting Document(s) Thyroid Stimulating Hormone 0.573 uIU/ML 0.358-3.740 Norm al (applies to non- numeric results) [facility] Free T4 1.20 ng/dL 0.76-1.46 Normal (applies to non-numeric resul ts) [facility]) ID Date Data Source [id number] 01/31/2020 08:52:00 AM EDT [facility] ([facility]) Name Value Range Interpretation Code Description Data Sherron rce(s) Supporting Document(s) Calcidiol [Mass/volume] in Serum or Plasma 46.8 ng/mL 30.0- 100.0 Normal (applies to non-numeric results) [facility] ([facility]) ID Date Data Source [id number] 01/31/2020 08:52:00 AM EDT [facility] ([facility]) Name Value Range Interpretation Code Description Data Sherron rce(s) Supporting Document(s) Hemoglobin A1c 6.7 % Normal (applies to non-numeric r esults) [facility] ([facility]) REFERENCE RANGES: 4.5-5.6% NORMAL 5.7-6.4% SUGGESTS IMPAIRED GLUCOSE META BOLISM >= 6.5% ABNORMAL Estimated Average Glucose 146 mg/dL 60-110 Above high normal [facility] ([facility]) ID Date Data Source [id number] 01/31/2020 08:52:00 AM EDT [facility] Name Value Range Interpretation Code Description Data Sherron rce(s) Supporting Document(s) Glucose, Fasting 104 mg/dL 70-100 Above high normal [facility]) Blood Urea Nitrogen 16 mg/dL 7-18 Normal (applies to non-nume patricia results) [facility] ([facility]) Glomerular Filtration Rate Laboratory test result Normal (applies to non- numeric results) [facility] ([facility]) <content>Units are mL/min/1.73 m2</content>
<content></content>
<content>Chronic Kidney Disease Staging per NKF:</content>
<content></content>
<content>Stage I & II GFR >=60 Normal to Mildly Decreased</content>
<content>Stage III GFR 30- 59 Moderately Decreased</content>
<content>Stage IV GFR 15-29 Severely Decreased</content>
<content>Stage V GFR <15 Very Little GFR Left</content>
<content>ESRD GFR <15 on [employer]</content>
<content></content> Creatinine For GFR 0.63 mg/dL 0.55-1.30 Normal (applies to non -numeric results) [facility] ([facility]) Sodium Level 139 meq/L 136-145 Normal (applies to non-numeric res ults) [facility] ([facility]) Chloride Level 107 meq/L 98-107 Normal (applies to non-numeric r esults) [facility] ([facility]) Potassium Serum 5.0 meq/L 3.5-5.1 Normal (applies to non-numeric results) [facility] ([facility]) Carbon Dioxide Level 28 meq/L 21-32 Normal (applies to non-num davonte results) [facility] ([facility]) Calcium Level 9.1 mg/dL 8.8-10.2 Normal (applies to non-numeric re sults) [facility] ([facility]) Anion Gap 4 meq/L 8-16 Below low normal [facility] ( [facility]) Ast/Sgot 22 U/L 7-37 Normal (applies to non-numeric resul ts) [facility] Alt/SGPT 29 U/L 12-78 Normal (applies to non-numeric resul ts) [facility] ([facility]) Alkaline Phosphatase 44 U/L 45-117 Below low normal [facility] ([facility]) Bilirubin,Total 0.6 mg/dL 0.2-1.0 Normal (applies to non-numeric results) [facility] ([facility]) Total Protein 6.5 GM/DL 6.4-8.2 Normal (applies to non-numeric re sults) [facility] ([facility]) Albumin/Globulin Ratio 1.3 1.2-2.2 Normal (applies to non-n umeric results) [facility] ([facility]) Albumin 3.7 GM/DL 3.2-5.2 Normal (applies to non-numeric resul ts) [facility] ([facility]) ID Date Data Source [id number] 10/30/2019 10:46:42 PM EDT [facility] Name Value Range Interpretation Code Description Data Sherron rce(s) Supporting Document(s) Progress Note [facility] XLRDBr7sWtMHEpZo03/KTCyeXHQaf2SvJEblOPz8KInjAOGnB8MbZFY2xG3wITS1NOmQEiPsYsLnHpE4 [facility] [file] AgICAgICAgICAgICAgICAgICAgICAgICAgICAgICAgICAgICAgICAgICAgICAgICAgICAgICAgICAgIC MeJPMyKITbONMoBNVdHIHzLPCiIYHkYRRsZW2ICHQcJCNqJBRjRYEfXEEmFDNmSRGrHDVzJNKiJHGuJT AgICAgICAgICAgICAgICAgICAgICAgICAgICAgICAg QXVbTWMqGDVwSOQpXHXlDHHiOYJsGZOzIYPwQVVpPGPgDKLlOY8DKMXpMOThYHAcFWOoLGUaLOWbWIAg ICAgICAgICAgICAgICAgICAgICAgICAgICAgICAgICAgICAgICAgICAgICAgICAgICAgICAgICAgICAg PVAiXKCiVGKdXAAgADCpMCEwPD6POFHvGNJsPQSzVI AgICAgICAgICAgICAgICAgICAgICAgICAgICAgICAgICAgICAgICAgICAgICAgICAgICAgICAgICAgIC XpEXUgZRIlEHVxGXMoXVZqJTMsWCTeZTNmSELoWF9SXOJfLEAzQFRuVGHqPDScGBXnIXLnOHYwECZnPA AgICAgICAgICAgICAgICAgICAgICAgICAgICAgICAg TXKxSEPjOHBqVLXeONCwVUOmNUSoZISoSUItWWQjABHhAKLvFCTnBT8SWBGvIIMaMGWaEIPhCXOnTIRh ICAgICAgICAgICAgICAgICAgICAgICAgICAgICAgICAgICAgICAgICAgICAgICAgICAgICAgICAgICAg LWFxRGFhJCAdBHPkMGAqXGRgYMQuSY3JCNJdHJDyAM AgICAgICAgICAgICAgICAgICAgICAgICAgICAgICAgICAgICAgICAgICAgICAgICAgICAgICAgICAgIC GcTJUyKEObGASzUUSsLOZoRHOgNXCaTNNmLOPmCJVxHA5HZZYfIRKnTOPjKGDhTMEoVUVkRZFcUVYkZJ AgICAgICAgICAgICAgICAgICAgICAgICAgICAgICAg OHKyBDCgPNIqMEMkFKTaTLTxMWRmDQNzUWCbFLKhCROrQGLsSCQwWLEyOK4PDJEfBIAfFKEcOLVhPIRk ICAgICAgICAgICAgICAgICAgICAgICAgICAgICAgICAgICAgICAgICAgICAgICAgICAgICAgICAgICAg JTLoHAGcWRIwPZCzSKIxNTBmQBXfMLJxDB0LKIFdTA AgICAgICAgICAgICAgICAgICAgICAgICAgICAgICAgICAgICAgICAgICAgICAgICAgICAgICAgICAgIC WkUWYzAOYgOQBeAVYrVXYmTLTeZFOoTZOzYOWlGHFdRKRyQE1MLK59eKNyt9A9NSQmRW4ojbk/Pg0KDQ oityHbqXSyOQ1ALbHcCI1nmx8WGwNkBY9pld1RKEmZ UpNwY1E6aXPzGNGqQIYEUuQlF72pXSwfSt74ZOxjERToLrMbJJv9Sa3HDdClF8iqENSoKdQ0NRUfUdGh QCuzUI0Yw8WikQBrDDq+Be3VDX2th1VyARffDHMhTJ6yuk6FGLtORnBvL6YdxjH3ZPRbOXKpTq3JHMWt VFQmcJIfTFYtCUQNOzQlZ9AqhJ80ZJERKm4+DQplbm KiQvzAYjEhWMTlb7AjJYd6BL6UAXZwWPl0eOPsBEUlO2Czs4ScFy88HEEaElegWzPobfLvbS8hYiMKcL PtMV0XLNF8MPKmEa1wLCHlEIXcQpU9AJDKLW9ZNKFcUPQzlTDrOWZqMVKHRA9GMTtrCWK3VWLvzlLkxM HdTItbIR6PQXAnvyGkRCdcQJKIANr+Pq9TPU1fz7Ff YKteXMItVC7usi4JXIlFXyAaL6L8vNAsF1K6KNstUf6HWNZrIWQqNIyaIZAFPYtlKO5MEJ3bgiA5MA2S lYXeWCWlMCWbjRDpYCn7A97hkYGpZQskJL4FZTG+Marcia+Ka5MYJKxMFVrSMWhPpRhDJDEPwDyO6WnL9GO d0JnD4EqSI88fToeexWdJNmtRO8EXF8oBHVyYTLFDF 7NaYXzpS1apqFpTLEzPQQPIkYdQ89mgXTlFQQfFWL1NQSbLv7GOIXkM9VvohNkkLltswPnWHNkPZAHZY 5GMEajxsZdpZVfoBomSV48zPypEH7TLe4ITrFaON9fxy5KvSOsIn6DRYKfGd1VDBOgEPRfCJNcCNT0CR XlEjLbAJstKETuMGCaMUS3LZFtEKYpQZ4ENmGzXDEd IQj9AgNgVYSfWYOezu1DUIOnDPLdETH7CtDsIUFkTVWcSVinKXEqDURdUGF2FCDfIWLdLU7SEhNmNVSm GWY3OIAnLMAtEZSqpf1UELIjHXPwDdxkXUJlUQCcXPDaXFcuVKYeTEV6JQEyZUEsPOGyZI9YXxMbVJTj VVJxBHdbJWMqVQRian5IURLaQSUnZGAcOUSeJEZcEW FnGElmXTRtAHM2LXz4DWLmWOFfJI4ZUzGoXLUbXZPiFByxZLWiEIDbyb0GTEWrHGGyHeD1MdOhSWDiHR LkZXjmLKFeJJX1VXQuWQYbSDZqWM4SBrVdWFSaQDxkFLqzPYTcDGTkrz9HLKNrDBFkYNP5MgKcKUJaVQ ZyVAkuCZVjHQL2PcN0SYYnEODlBT7DAtAlNDWdFUt5 WLZaCEAnGTVpsm5DSJHaBXIgUJG7IcGqTODgVFYoECauJWZxINSuEuoaLMPgUKPdSF7MIuDrQUSsMdU2 OtZjXUIgTFSkzo4WHAVyODIjVIopEXEfDTOnRTSuEFu4ssRxrBYbPHh4MQ0VV7MkgsPiEyAARj2Lc443 TVTbGBAsUi4QJ9iwMf5eKJDtOLFLId9FPMf9FwUmZD CyAUBfOVLzORDjNIYpP5HhVVIjBRJwYxh3AwD+XNjjUDTlUvJ7TNCvJpVrDKLzBVQxKFJsUmP1GWYoXk KbGS6kOXOYPk4+MHsveQUaqUfkUWANLzWcTFKqKZxdYWTPPh1M ID Date Data Source [id number] 10/19/2019 07:49:27 AM EST [facility] XR HIP- UNILAT, 2-3 VIEWS [id number] RE SULTInterpreted by:RACHEL Rodríguezelvis and right hip:INDICATION: [...] rce(s) Supporting Document(s) ID Date Data Source [id number] 10/09/2019 09:51:14 PM EST [facility] Name Value Range Interpretation Code Description Data Sherron rce(s) Supporting Document(s) Progress Note [facility] PFFUYq9uVyEQPjMq01/AIRjvYQMbj1SqPTqnXWx5ROfrWECgW2UaHSZ4mK2oBTD6ZIpDUcYlFkBmPgG0 lbm [file] ICAgICAgICAgICAgICAgICAgICAgICAgICAgICAgICAgICAgICAgICAgICAgICAgICAgICAgICAgICAg ICAgICAgICAgICAgICAgDQogICAgICAgICAgICAgICAgICAgICAgICAgICAgICAgICAgICAgICAgICAg ICAgICAgICAgICAgICAgICAgICAgICAgICAgICAgIC AgICAgICAgICAgICAgICAgICAgICAgICAgDQogICAgICAgICAgICAgICAgICAgICAgICAgICAgICAgIC AgICAgICAgICAgICAgICAgICAgICAgICAgICAgICAgICAgICAgICAgICAgICAgICAgICAgICAgICAgIC AgICAgICAgDQogICAgICAgICAgICAgICAgICAgICAg ICAgICAgICAgICAgICAgICAgICAgICAgICAgICAgICAgICAgICAgICAgICAgICAgICAgICAgICAgICAg ICAgICAgICAgICAgICAgICAgDQogICAgICAgICAgICAgICAgICAgICAgICAgICAgICAgICAgICAgICAg ICAgICAgICAgICAgICAgICAgICAgICAgICAgICAgIC AgICAgICAgICAgICAgICAgICAgICAgICAgICAgDQogICAgICAgICAgICAgICAgICAgICAgICAgICAgIC AgICAgICAgICAgICAgICAgICAgICAgICAgICAgICAgICAgICAgICAgICAgICAgICAgICAgICAgICAgIC AgICAgICAgICAgDQogICAgICAgICAgICAgICAgICAg ICAgICAgICAgICAgICAgICAgICAgICAgICAgICAgICAgICAgICAgICAgICAgICAgICAgICAgICAgICAg ICAgICAgICAgICAgICAgICAgICAgDQogICAgICAgICAgICAgICAgICAgICAgICAgICAgICAgICAgICAg ICAgICAgICAgICAgICAgICAgICAgICAgICAgICAgIC AgICAgICAgICAgICAgICAgICAgICAgICAgICAgICAgDQogICAgICAgICAgICAgICAgICAgICAgICAgIC AgICAgICAgICAgICAgICAgICAgICAgICAgICAgICAgICAgICAgICAgICAgICAgICAgICAgICAgICAgIC AgICAgICAgICAgICAgDQogICAgICAgICAgICAgICAg ICAgICAgICAgICAgICAgICAgICAgICAgICAgICAgICAgICAgICAgICAgICAgICAgICAgICAgICAgICAg EIWqEMHkXJXpFGQcBTHmLSRmQULhTDWaNUt9U4jhWUDmNMBqLW2zGQv8Xd3+DYlGJeHoTZO5npYsoX7U YT5hk3ZmMLllZMWwu8XrULo2CC3KJTDcIOduVK1UMS evko1GBOEhMKPfeSMIu0aoTpIlNNR5ZCCcXkamAC0OJSRaV3pmnjYzADQuAPRXPF1OCcHzS2QdzM32IS ENCj4+YLufmuJwVviNNlU9RTJyj2OgONv2UR4HKPLzJygth2CjHzShJTPCVLaeCK0EEGO4NWIzJLGoGm 0HUHPdX775fdQkVR9XSi5AXhMtFH2ruw7RYgHiZETv MtgZTbv4KEijVD5XtEXmLCeYsd8ajlWqmnLZg7KpvxHchVGGXKB8zAY5OLWkCzJ2TZQzNM4OSBX0MKCz CN3gEJXcLNYpBiX2WWVMTA9IIPKnOHAagRWbQMPfMRVDTU1DISowMYZ9NSNdvaAwbUMqDLarZB9COFOj bnQgMTkgMCBSDQo+Lf0MXP0mz6WoDCbdIPYmKJ5mec 8VLSzORjBgO7D8hXNjR9J4HCyoNp6QCAZsWRChAWmxFCXYIKvtJT3RBS5wooH3JO6IgWBySJYaVZLhdT IeNJl9S45ycLJyXEscZT3BNBQ+Marcia+Rr4DCLGyKYVqNLZjUyRkVKFGYmSmS2SaS6ECz7OlF8QvDQ76rJ lsjyLdHLufNB4YBL2jQBGfCOVQDL2BkGWuhN1iuaXk BTPaQPGRIhMdP27auXTrAOUdRAT6EJKjEz5YESKjY9JhsuTiqEdsjtNpVJJpDSHWZS5OKRqozzOaqAOp aWxpKA04pCrbAS8EZj4ABfOlPV2rbz5TlVXjKj2SVSFjDr2SXUJyFLKrSOCpSYK4UJQoPeJvDVooMBEm UBWyUIE9JYXgZLEmSK7MRbPjZUNnOsQ4JiEqBMXiCO Juea1BHXMrSOHoWgQ4HGUnKUJiGQLbWDqpXSUjLQEwOKD5MSZiBZMhQM6VUkLrPBLoJAClTwWzFRVeKL Scuh8FASMoFHEgLwG3GSPeIRGmYUVfRUpzRCXoVFP1TDD9TGEvCXCjGP7RDoPnOBSjEWC8HmWbYFKfHT Mbke5ALDLxCEIeFYoxIaPsSQCgNWAcYVsuLTHzIIF5 DTamZWYiSHLhNU3RKzRaYXCiNIGyOoYyJSFoODUmws1SWLDwQTZzEqV7TNWlQBFkRIEuSKsvAWOhHWT9 NYA2AXFjTZRxOH7PPfQqPSKnImPjMoMgBQAcLADexy7BTQSwPALlAXQ2LJQxRPOzTJLoPInoTLLuUNPh WnL9GFJrYVTuTL9GYsMkXSWxAwC7NMWfZPTySXKbar 0KCNRcSYJeEJRgLQFlPHXhDWGeGHycSHSkAZVmOoJ9EMCxORGjHR8UHoQrOJZlIhW5QMqkADUuHAGlzr 3JSFBuZLNfXal6NLDfYYFaYGTwHHq4ikChuBNtBGj9RW8LL4WvwyEcNmUXOa5Vf499HHQdUNKqJz4AA3 seCr6aKDSrQDCGYv7BNDe8FmccHaggAwFrNfu7WPBl Siz6RBKkOeU0BnC2ZOFmDNX+IDmmVQOzX4UzNXLbDNabG9TsNDypCESsXgswRjcjDmUeRZ3nPDKDXl6+ FKqjuBTvgHeeZPCTDsNmDYYqMEkeYROVOr0L ID Date Data Source [id number] 09/20/2019 05:18:19 PM [facility] XR HIP- UNILAT, 2-3 VIEWS [id number] RE SULTInterpreted by:Tyshawn Graham MDHip unilateral, 2-3 [...] loosening.This document has been electronically signed by Tyshawn Graham MD on 09/20/2019 5:16 PM Name Value Range Interpretation Code Description Data Sherron rce(s) Supporting Document(s) ID Date Data Source [id number] 09/07/2019 10:45:25 AM EST [facility] Name Value Range Interpretation Code Description Data Sherron rce(s) Supporting Document(s) Discharge Summary [facility] JSVFPc1xKxEYGnIn75/RSMekHNXdg4NmQEmeEIe2JKbyFQLjM1ImRTJ2zC0yRAV0YSpLNlMoVyAkUCLl lbm GyQabCHrHxZDRmFngPCnAsHQdpJvrgtMFgFI5WmEW0UJLjE33aKUNfWSGvD6EjMGC7JrT+Qz6JMAQmtL IkJH4TZfaT7Bzjm+M0UV0z1E1YsUKRMCtbAEg66H0qyqBq6UZic+0GxCJjLPBZn46dB5vet90bnT6oSh /DEE2Qhbg1mI5Vxz/tmGjOs6in56/sxFWWZbHs3/qn 6bi4nwX//0qfnwgctht0mEnLV2EyQK3cXVaW4aaWuV1R64zmBZg0qC0N60nb8AxYslx7mGi08p/myePT O7bDt4VdNuWtj31PMxGUcmW310+p4ACjGZisp0apxpsq+Hy0X4bIbNWhsGwepNggNOqbnhLA/Nun3Vsm zXZnLQreZ0wi7RsHsap5Dks0UovvCs7QxY3v3R/yFi WK2Bf5XgUo2eEdYbZmuab5d7DwqKpoX0qEj0ojixE30TH2qW+OV+S2T4jNbyPMhtwsI2zXu4MRVZzR8b yuTHmLufDZiYTRrxujm0S+fGnNG2Azqh8y/jt3oYUxpnX5BHn8IAEgQbWld/U2efQ2S+rD2nw0MpGeFq j/0kHbts7a8YchKm6phKsX0NQkPdDnj/ja7TsEbtGV o17hSWCfhMt6OO8fmdPO/ppAL0j9qvn0uC5SM/zr9vtJpbt5g7MgvScd+0nLPnYc/9jzHZWu/5fzWWxy 1jmaQtWXqT43TeeoX0uoin7p7SEyul0tNS8xn7ioUrngzSveFayEcfHfwam9yXtTuaVkyUInNRBmejxl fNNMr22GZGVsaEZSKR5uBLLRrW32zBmzstM+77IcSs 7tPOdGScz+ceNO61czyVQFkJpkLyXdZJhExbwk5TxO6VYcSYhAZZOFrwRnRrZW/YjRGYvYqHH02vzCo7 eawzjiKuuof79kbbEhR6RgfwOjPD1vBJLFyKdrL+lKlD3R9SSjYI/kwxiG4VgZDavSw8Fuz1zZBox2UB FK6Ck4MaXFBj2DLmxG1vyo8Tj4+Jj+wOyjSkLImuT [file] OVuetYKXDECHN4JK4zOUHc1KzQm/W/Pubk5lqexzLClEd2KM/dLNv+7z/UzIfV42y35q+4h3lyFgf/HIGHWAY INSPECTOR qkT1I6s0Lzm7+9+1J44F1fqVuSI62n4t0xTw84ybAl4JYi/8fDg+pxG4kHZ//p8N48pjyc9u0ir2q7w2 yNd2jbv4a2+uY/fY58m1W8/PPPsy+++tJOPsvrvNpO mi8qBD6K/nAulhMnAQrrGDn8kA2coJMm46daf2kT3L58qXh76vEne1b7sq0BXd1al+6bTb36h+9uVtaz tLMeD9a9uxg8Y5F8E/u+86xFvpwXb+ddb/WrGhb8QHgd95FYqLYi2MfnKnqSJnd3CEpc3RGIzUC6vNnW fFXn7l/Pnk48JRhbT7K2zRmxvX/PQ98dsheRj+X26Z lyb0Pnvvc2wr7lJ3vx3rSv/qZ77fFnv6+P3pbD4w0UqUh/+9RWpz2k5W+fbh/UL8iLrIrO3r/zVdOsD+ 00+M1k9onvcUo09u7XbjaYk5Y/oezKQCwyy3B++Eit7fFq4eXq4OY0eDk419hHghrA6ih+s/F1OTafJS Dqs77D4bIt+yNN331hr4s95I7b6Xi11pVth0iK5fSe [file] DQogICAgICAgICAgICAgICAgICAgICAgICAgICAgICAgICAgICAgICAgICAgICAgICAgICAgICAgICAg ICAgICAgICAgICAgICAgICAgICAgICAgICAgICAgIC AgICAgICAgICAgDQogICAgICAgICAgICAgICAgICAgICAgICAgICAgICAgICAgICAgICAgICAgICAgIC AgICAgICAgICAgICAgICAgICAgICAgICAgICAgICAgICAgICAgICAgICAgICAgICAgICAgDQogICAgIC AgICAgICAgICAgICAgICAgICAgICAgICAgICAgICAg ICAgICAgICAgICAgICAgICAgICAgICAgICAgICAgICAgICAgICAgICAgICAgICAgICAgICAgICAgICAg ICAgDQogICAgICAgICAgICAgICAgICAgICAgICAgICAgICAgICAgICAgICAgICAgICAgICAgICAgICAg ICAgICAgICAgICAgICAgICAgICAgICAgICAgICAgIC AgICAgICAgICAgICAgDQogICAgICAgICAgICAgICAgICAgICAgICAgICAgICAgICAgICAgICAgICAgIC AgICAgICAgICAgICAgICAgICAgICAgICAgICAgICAgICAgICAgICAgICAgICAgICAgICAgICAgDQogIC AgICAgICAgICAgICAgICAgICAgICAgICAgICAgICAg ICAgICAgICAgICAgICAgICAgICAgICAgICAgICAgICAgICAgICAgICAgICAgICAgICAgICAgICAgICAg ICAgICAgDQogICAgICAgICAgICAgICAgICAgICAgICAgICAgICAgICAgICAgICAgICAgICAgICAgICAg ICAgICAgICAgICAgICAgICAgICAgICAgICAgICAgIC AgICAgICAgICAgICAgICAgDQogICAgICAgICAgICAgICAgICAgICAgICAgICAgICAgICAgICAgICAgIC AgICAgICAgICAgICAgICAgICAgICAgICAgICAgICAgICAgICAgICAgICAgICAgICAgICAgICAgICAgDQ ogICAgICAgICAgICAgICAgICAgICAgICAgICAgICAg ICAgICAgICAgICAgICAgICAgICAgICAgICAgICAgICAgICAgICAgICAgICAgICAgICAgICAgICAgICAg ICAgICAgICAgDQogICAgICAgICAgICAgICAgICAgICAgICAgICAgICAgICAgICAgICAgICAgICAgICAg ICAgICAgICAgICAgICAgICAgICAgICAgICAgICAgIC VsNLHuYUBgBFFiISJrVSMpREHtUGk5W0dqJFKfQUPxQZ4rZYz1Sb2+POuXJxFuIRG8zxQnoD6NIK1et8 YiPLktTGFbg5QcKJr1XH0ZHBXmSLojNV6TULhqkp9PELVaVMIfdUWNc7hhVkVoRIB0NMXsGoxfEU4RKS FkZ8oiqrZkSAHkLKQWAMzkGGBDQJpoKYCOUCOxWALv NdPhUdGnREVlYA3BEHAhE546bhJvJP4GLm7GRmClLT1gqi4QTmZhCRFjMalCZsz7YEdtSC5NwOVylVRw KLWpVETPDoMeU9dqd2OkNaLlUVQOUNvbBE1Gp2YppQTqDVa+Bk7LHA8xn6UuBYbcZGDfYJ3czh9JLZlT BfAjL2GciLonKXVme1AtTELrFNDZvC0aWYE6YVJ4BX Q8OQZnUA7tDGNGSBkslmXoqM9wDQuoKYKiGFAxPY1eYL2mKRMqQZGeBcNcGZTTSA0OSIFxYKFqdBYoYM VtZYMZWK7ECYbhWPF7UYOrxuRswQLhYLkcQN3ENOFeobNqJmSsEXTRJKs+Pe6WIF4rk2TmNImsAhBeBZ 9chu1EYVpOWuOjF7H1uIAfP3N0MXarAv3YLIRuLBWj QdteWIQVVQewKH7QKP0rewW2BC1YfWNsBRNvQAAokIZfHRv8V10kbIDqQJxiQK1OWEC+Marcia+Er9PKJVq IJBfTBEpSeQzYVFWZuYxG2YkS9WLr1WaN6OiQU30rUewbjGsOXfzQO2VDX4jOHHsKTPRUP5OuMQlnK4x ozMkNSFgUJEIVbYnU46rbIMoGXOiKPV7IVPfZj7HUD AdT4HtiaQouNhntrDiPVUdISGDQB1FFKedniGhfRNaxWsmEP42hOivCX6RMu2FEmHnFQ0aln9OpRBhYm 8SITKmEv0OBTEfIOJgSYDdCGI4DJFwUzEaPIhjFGCwMPJgOPG3UJTaFCPcPC3PTwJxZHQdTvVtYTEsOT UzVICgzl1HACJzVDKvJsm0VHIvNZKuDEHfYEgmHSGn XZNqVTJ1TCYgXODnTX5BTdOsGSPlCUX8OBUeABEcLOOsqv2KDMYtYNTiMitwSABzIMNsHFBeYJuyMDMo MFZ5QuI5RFPpJLVoMJ3KXaRpNQYrSVM2UHplNQJvZOTkgc7IKLEgZSFhGEWsTNOaOEWbQUAsSWukNCDs CWCqZrD5QBTvCCMzWL0WEsOyKFBbBAB9CdGeWAUbGD Ispr9GAQXrAHPoCQFgZpIiJNYjXNJkUItgLCSlCZH7GQO9BLOtIIHaQO5KFlOsDSXmHQSmLjSuKTUdND Cglc3SDLJqPXJkSfK5GNYdBIUwKJBwWImjDRNdOVW7Sxw7OOKrRQTtTE4GWsLbLKBlPJi2NuYtCPNjLR Nmdo5LSWWmLREqCYRxDVUvYXXqBFUnJNdkBLInBEK0 EiMdQEZoHKPlPN8GQnKcHROdXBi0FAaiXAGjIXPzsw0ULZTsTFKkJUc6HGRdAYVmZUKkEHlbIBBxGFIm RPc7FOUoEGTeEQ6PAxBmHORsIfNzPCvhWEXpVQBxwm9DRBDeSWIuZANzHOBsLUKyCOSbDOqrYETpPEA0 WWTeWZJwIVDlNZ5BGnOmKOHzFjI5ZUKsMLPqNHQehc 4GGBLwSMXoTXa0YGMoGJQuRPCjOToaRJJtVVJ4PHBuLVHrHSPxUT6CXhDgWRDpCgD9XRrvBNPdCMIzkk 7VUHLpSNRpZdyvXmLwPDMvLYUlJUopQEBkZYG8IVokVDRwYDIjVV5KVhQzNHQgCtbdNSJySRFvBMIxsg 4EyRZspZnetw4LGFqNCi0JwOhpSNNySDvaQq9teUMe VzOwMSBOTe5PbtYpTDLjQEBXDRmoPAAzUKE7I6LxDtMaUxBdN4JiGKVfH4UsCOAvSSUaTEgsEzQ1YaC4 WkT2QdBgLGF4CdIlNwQzPjL6RgYaRLRlEkX0MESxYHB+XK9kPJg+Sp9Sm7KuxiM0cvBuOAymWQY6Rp2B QWTZQ9IKWe== ID Date Data Source [id number] 09/04/2019 03:29:00 PM [facility] Name Value Range Interpretation Code Description Data Sherron rce(s) Supporting Document(s) EKG Laboratory test result [facility] ([facility]) ID Date Data Source [id number] 08/30/2019 11:52:47 AM [facility] Name Value Range Interpretation Code Description Data Sherron rce(s) Supporting Document(s) Glucose [Mass/volume] in Capillary blood by Glucometer 128 mg/dL 70- 140 [facility] ID Date Data Source [id number] 08/30/2019 08:09:23 AM [facility] Name Value Range Interpretation Code Description Data Sherron rce(s) Supporting Document(s) Glucose [Mass/volume] in Capillary blood by Glucometer 130 mg/dL 70- 140 [facility] ID Date Data Source [id number] 08/30/2019 05:36:13 AM [facility] Value Range Interpretation Code Description Data Sherron rce(s) Supporting Document(s) Leukocytes [#/volume] in Blood by Automated count 7.1 10*3/uL 4-10 [facility] Erythrocytes [#/volume] in Blood by Automated count 2.77 10*6/uL 4.1- 5.3 L [facility] Hemoglobin [Mass/volume] in Blood 8.8 g/dL 11.5-15.5 [facility] Hematocrit [Volume Fraction] of Blood by Automated count 26.2 % 3 6-45 L [facility] Erythrocyte mean corpuscular volume [Entitic volume] by Auto mated count 94.8 fL 80-96 [facility] Erythrocyte mean corpuscular hemoglobin [Entitic mass] by Automated count 31.9 pg 27-33 [facility] Erythrocyte mean corpuscular hemoglobin concentration [Mass/volume] by Automated count 33.6 g/dL 32.0-36.0 [facility] width [Ratio] by Automated count 14.3 % 11.5-14.5 [facility] Platelets [#/volume] in Blood by Automated count 188 10*3/uL 150-400 [facility] ID Date Data Source [id number] 08/29/2019 09:44:35 PM [facility] Value Range Interpretation Code Description Data Sherron rce(s) Supporting Document(s) Glucose [Mass/volume] in Capillary blood by Glucometer 139 mg/dL 70- 140 [facility] ID Date Data Source [id number] 08/29/2019 04:49:00 PM [facility] Value Range Interpretation Code Description Data Sherron rce(s) Supporting Document(s) Glucose [Mass/volume] in Capillary blood by Glucometer 149 mg/dL 70- 140 H [facility] ID Date Data Source [id number] 08/29/2019 12:46:45 PM [facility] Value Range Interpretation Code Description Data Sherron rce(s) Supporting Document(s) Glucose [Mass/volume] in Capillary blood by Glucometer 128 mg/dL 70- 140 [facility] ID Date Data Source [id number] 08/29/2019 08:47:46 AM [facility] Value Range Interpretation Code Description Data Sherron rce(s) Supporting Document(s) Glucose [Mass/volume] in Capillary blood by Glucometer 110 mg/dL 70- 140 [facility] ID Date Data Source [id number] 08/29/2019 09:21:05 AM [facility] Name Value Range Interpretation Code Description Data Sherron rce(s) Supporting Document(s) Hepatitis C virus Ab [Presence] in Serum or Plasma by Immuno assay Non Reactive [facility] No serological evidence of active infect ion. If recent exposure is suspected, test for HCV RNA. ID Date Data Source [id number] 08/29/2019 05:54:02 AM [facility] Name Value Range Interpretation Code Description Data Sherron rce(s) Supporting Document(s) Leukocytes [#/volume] in Blood by Automated count 7.2 10*3/uL 4-10 [facility] Erythrocytes [#/volume] in Blood by Automated count 3.01 10*6/uL 4.1- 5.3 L [facility] Hemoglobin [Mass/volume] in Blood 9.8 g/dL 11.5-15.5 [facility] Hematocrit [Volume Fraction] of Blood by Automated count 28.2 % 3 6-45 L [facility] Erythrocyte mean corpuscular volume [Entitic volume] by Auto mated count 93.6 fL 80-96 [facility] Erythrocyte mean corpuscular hemoglobin [Entitic mass] by Automated count 32.6 pg 27-33 [facility] Erythrocyte mean corpuscular hemoglobin concentration [Mass/volume] by Automated count 34.8 g/dL 32.0-36.0 [facility] distribution width [Ratio] by Automated count 14.6 % 11.5-14.5 H [facility] Platelets [#/volume] in Blood by Automated count 210 10*3/uL 150-400 [facility] ID Date Data Source [id number] 08/29/2019 06:09:35 AM [facility] Name Value Range Interpretation Code Description Data Sherron rce(s) Supporting Document(s) Bicarbonate [Moles/volume] in Serum 23 mmol/L 22-29 [facility] Chloride [Moles/volume] in Serum or Plasma 108 mmol/L 98-107 H [facility] Creatinine [Mass/volume] in Serum or Plasma 0.45 mg/dL 0.50-0.90 L [facility] Glucose [Mass/volume] in Serum or Plasma 137 mg/dL 70-140 [facility] Potassium [Moles/volume] in Serum or Plasma 3.9 mmol/L 3.4-5.1 [facility] Sodium [Moles/volume] in Serum or Plasma 138 mmol/L 136-145 [facility] Urea nitrogen [Mass/volume] in Serum or Plasma 9 mg/dL 8-23 [facility] Anion gap 3 in Serum or Plasma 7 mmol/L 8-15 L [facility] Osmolality of Serum or Plasma by calculation 287 mosm/kg 275-300 [facility] Creatinine/Urea nitrogen [Mass Ratio] in Serum or Plasma 20 [facility] Calcium [Mass/volume] in Serum or Plasma 8.4 mg/dL 8.8-10.2 L [facility] Glomerular filtration rate/1.73 sq M pre dicted among non-blacks [Volume Rate/Area] in Serum or Plasma by Creatinine-based formula (MDRD) >6 0 [facility] Glomerular filtration rate/1.73 sq M pre dicted among blacks [Volume Rate/Area] in Serum or Plasma by Creatinine-based formula (MDRD) >60 [facility] ID Date Data Source [id number] 08/28/2019 09:12:12 PM [facility] Name Value Range Interpretation Code Description Data Sherron rce(s) Supporting Document(s) Glucose [Mass/volume] in Capillary blood by Glucometer 192 mg/dL 70- 140 [facility] ID Date Data Source [id number] 08/28/2019 05:02:11 PM [facility] Name Value Range Interpretation Code Description Data Sherron rce(s) Supporting Document(s) Glucose [Mass/volume] in Capillary blood by Glucometer 163 mg/dL 70- 140 [facility] ID Date Data Source [id number] 08/28/2019 01:51:41 PM [facility] XR PELVIS 1-2 VIEWS [id number] RESULTInt erpreted by:Corby Peterson [facility], one to 2 views, portable dated 08/28/2019.REASON [...] Date Data Source [id number] 08/28/2019 12:23:58 PM [facility] Name Value Range Interpretation Code Description Data Sherron rce(s) Supporting Document(s) Glucose [Mass/volume] in Capillary blood by Glucometer 159 mg/dL 70- 140 [facility] ID Date Data Source [id number] 08/28/2019 11:18:33 AM [facility] Name Value Range Interpretation Code Description Data Sherron rce(s) Supporting Document(s) Operative Note [facility] FBYGAj1lNrIDBeEg53/UIMdbFBLao9FvLCytMRy7AIyjLCPqT8SgWNM8vU3gRBI6RAaALaQfHlPbLUXl lbm [file] r2zSOVvkOfwceqgOuIrTnILbHzrR/AruB55X11mnfP3pJ8zCjd/u9zqo2gzW0Wbb3fa/15n1GDWes+Medical Assistant Prn [file] ICAgICAgICAgICAgICAgICAgICAgICAgICAgICAgICAgICAgICAgICAgICAgICAgICAgICAgICAgICAg ICAgICAgICAgICAgICAgICAgICAgICAgICAgICAgICAgICAgICAgDQogICAgICAgICAgICAgICAgICAg ICAgICAgICAgICAgICAgICAgICAgICAgICAgICAgIC AgICAgICAgICAgICAgICAgICAgICAgICAgICAgICAgICAgICAgICAgICAgICAgICAgDQogICAgICAgIC AgICAgICAgICAgICAgICAgICAgICAgICAgICAgICAgICAgICAgICAgICAgICAgICAgICAgICAgICAgIC AgICAgICAgICAgICAgICAgICAgICAgICAgICAgICAg DQogICAgICAgICAgICAgICAgICAgICAgICAgICAgICAgICAgICAgICAgICAgICAgICAgICAgICAgICAg ICAgICAgICAgICAgICAgICAgICAgICAgICAgICAgICAgICAgICAgICAgDQogICAgICAgICAgICAgICAg ICAgICAgICAgICAgICAgICAgICAgICAgICAgICAgIC AgICAgICAgICAgICAgICAgICAgICAgICAgICAgICAgICAgICAgICAgICAgICAgICAgICAgDQogICAgIC AgICAgICAgICAgICAgICAgICAgICAgICAgICAgICAgICAgICAgICAgICAgICAgICAgICAgICAgICAgIC AgICAgICAgICAgICAgICAgICAgICAgICAgICAgICAg ICAgDQogICAgICAgICAgICAgICAgICAgICAgICAgICAgICAgICAgICAgICAgICAgICAgICAgICAgICAg ICAgICAgICAgICAgICAgICAgICAgICAgICAgICAgICAgICAgICAgICAgICAgDQogICAgICAgICAgICAg ICAgICAgICAgICAgICAgICAgICAgICAgICAgICAgIC AgICAgICAgICAgICAgICAgICAgICAgICAgICAgICAgICAgICAgICAgICAgICAgICAgICAgICAgDQogIC AgICAgICAgICAgICAgICAgICAgICAgICAgICAgICAgICAgICAgICAgICAgICAgICAgICAgICAgICAgIC AgICAgICAgICAgICAgICAgICAgICAgICAgICAgICAg ICAgICAgDQogICAgICAgICAgICAgICAgICAgICAgICAgICAgICAgICAgICAgICAgICAgICAgICAgICAg ENQjOCKzVVTsVZZqTEFiZKTaGFRpBRGmXYMtHGGvXHQzMIDfIQGnOMLrWRFiGFLsCFs9K2uiDYGpGTFi YC6wLWl4Mu1+HNnVCnWqCVD9emCqfZ5RYZ5gc1YvLO jkGEFtd1QsQAx8OH8FZSBsMExbIU5TOSkfay4YTBBeJKLsgUNWs5jiQeXhJUT1OCIpUprmNR0YXFMyZ4 xszbIdIXAsNLDINWxcZEMSOFwnUVCXSL2UCcKgJ7GbcU64WILUCt6+QXizswAjZjqNGxPxIZJqi6OvPD x1KR7GVCOfXcftk1VbWnDpAGWZPBgwDP1DMWR5FQP1 UJMrZs1GGNYqF624whEqIY2SVi8VXrMvHM1bnl7RPcUwEGKcPuvNPwg7OMqcNS5UbIObXWpKuPOsBSEw asXzXz23TSWdbIBPhUviXEN1ZMRfQC8VBDE3YAYvMQMzQhJaTMCqXKorXKRSZJzVVrEaJ9Jeg0BzGsL0 GHXcGoKqSPstJMMxMcB4AC98mZmxTP8ODMZnPIViMT 71QFDoWUOaSq6ZBs7WCoIvOK4ixh8HBlAvZSBmQsaNCgd2ABhmNX8BjQZdH8EfxWXpq8eLYqWnO2MFTN AxQBWxPg1UCKYaZmBaEZIcKVfqTQ7cYWQoXCGUbXyfnnS4XB5WYC7hucJdBS8KNzAzWc2yJj6TTmFgI5 ThF8WlQYUxLFGOSQnnPR2YUKjcES6yCP0Kv1NGeCUo uA2leb2URUAnODQzFypfqz4LZfniL1R2tBtvBLGxSwIbXABXXZmkEB3GBRJyLAN7AXQnVpXlFYDZCjOl U24tRM8KZ8Swp74nLbM0JLWvAjZgGPlsFZ44bTgzjnCxjJFswEafZT7APh3+DQplbmRvYmoNCnhyZWYN LgFvVyLAXxIjCHUmSCNeONEaBiV2FeAhLt0EUGFgDN WoEPUsQsVdIACuJRCgCLoaTKErBHT4KDW8JEUtLCAqQT6YShNyBYOsLjg2SsXzKNTjPOInxx7QIYVvNT CyFBY9MpAkQTQgNZCzEEsxZYDsYZTuVyWhTQRjVJZsCY6TCjEnFNAwLGW4YXGwFNOqDUOhmc0UTTTzWR WrZgQ2GXBqCWPvBFSyPGzqEYCnKNH0WNb5VVXwXMSr LK2CExQsVAJqIQJ1WbQoARRbBPKvan2GZPVvJTGpPRxjEyUcIHPpVTWiHPzbPMEnSABrBhs6KIKzOFAe KM2YJaPfXFNuHJX7PFXvINCiIBHzeo2FUTJxBJTjCvS8AbJrTGRsOAFdAMwaGBUhGUBsNHQ9FUVdACSs ZD2HJwMyVWFnJXOkEilgESPbHNHjir3PLAPaRFFlNa SiJWIdUTRrLYDuORjlNDTcJDG5GMAfLFHaWEKhGB9DUrBySVFeBkHtNfteQOWoQUSfba6ZGYGcLHHwJw NyDRTkOBPuDLXgPVkvNCKtMXL7PmD0GFOpBCThFD3TSzBoEBFuLnD6OICnGWJvHZIejq8HSHSgOMNpZj V2ZeXgCGRnZRPeBLwoTVQfZZB1KlPtAMNmEXBrDX5Q VlNlJOYbIjs3OUZgHHZmBYCaoy5JJDMzNVDkNLg0MKRsQXQjOHWgBNz7xsLgmMOtRMr1QQ2QN3HakjZm CjYGJc9Wp360AMG0DAVnQk0RE2xcCq7xDFMzHHZUSq9WCZy2F0XhMHIxQsUtQWKfXdKxNUbgC7A4IvL9 NDUzYzZlYTU+VRwoHEY4FcLeRHWpNCPzQdWvDUUcKZ r0KDv0RIAnIaStTJ9hZHLYGx9+GVrozCDkqWwnLWWNHzN2BuLhKRhfVFVHVr8L ID Date Data Source [id number] 08/29/2019 09:56:00 AM EST [facility] Surgical Pathology ReportName: KEY SANZ RMRN: [id number] Number: [id number] Date: 08/28/2019 11:10Received Date: 08/28/2019 13:29Physician(s): LORRAINE,BIANKA LORRAINE,EMILSpecimen(s) ReceivedA: Right femoral headClinical HistoryPrimary osteoarthritis of the left hip. DiagnosisBONE, RIGHT HIP, ARTHROPLASTY: DEGENERATIVE JOINT DISEASE. (GROSS ONLY)./pws Jennifer Gleason MD;Resident PathologistElectronically Signed By Matty Sun MD, Attending Pathologist 08/29/201909:56:10Processed at [facility] Pathology Laboratory [facility], [address] [place] [address]. [facility], [address] [place] [address]. The attending pathologist named above attests that he/she haspersonally reviewed the relevant preparation(s) for the specimen,performed microscopic examination when indicated, and rendered the finaldiagnosis. Unless 'gross-only' is specified, the final diagnosis is basedon a microscopic examination of senior human resources representative sections of tissue.Gross DescriptionThe specimen is [...] developed and their performance characteristics determined by [facility] Pathology department. They have not been cleared or approved by the USFood and Drug Administration. The FDA has det ermined that such clearanceor approval is not necessary. Name Value Range Interpretation Code Description Data Sherron rce(s) Supporting Document(s) ID Date Data Source [id number] 08/28/2019 07:37:40 [facility] Name Value Range Interpretation Code Description Data Sherron rce(s) Supporting Document(s) History and Physical [facility] SFNWIv0fEeZCEnOb47/CEDkzLJDqh5UqKHroRPp5PPmuYNVxF8OvLPH7lO6mVUG6XHrVWqNaMsPnXTHj m [file] ICAgICAgICAgICAgICAgICAgICAgICAgICAgICAgIC AgICAgICAgICAgICAgICAgICANCiAgICAgICAgICAgICAgICAgICAgICAgICAgICAgICAgICAgICAgIC AgICAgICAgICAgICAgICAgICAgICAgICAgICAgICAgICAgICAgICAgICAgICAgICAgICAgICAgICAgIC ANCiAgICAgICAgICAgICAgICAgICAgICAgICAgICAg ICAgICAgICAgICAgICAgICAgICAgICAgICAgICAgICAgICAgICAgICAgICAgICAgICAgICAgICAgICAg ICAgICAgICAgICANCiAgICAgICAgICAgICAgICAgICAgICAgICAgICAgICAgICAgICAgICAgICAgICAg ICAgICAgICAgICAgICAgICAgICAgICAgICAgICAgIC AgICAgICAgICAgICAgICAgICAgICANCiAgICAgICAgICAgICAgICAgICAgICAgICAgICAgICAgICAgIC AgICAgICAgICAgICAgICAgICAgICAgICAgICAgICAgICAgICAgICAgICAgICAgICAgICAgICAgICAgIC AgICANCiAgICAgICAgICAgICAgICAgICAgICAgICAg ICAgICAgICAgICAgICAgICAgICAgICAgICAgICAgICAgICAgICAgICAgICAgICAgICAgICAgICAgICAg ICAgICAgICAgICAgICANCiAgICAgICAgICAgICAgICAgICAgICAgICAgICAgICAgICAgICAgICAgICAg ICAgICAgICAgICAgICAgICAgICAgICAgICAgICAgIC AgICAgICAgICAgICAgICAgICAgICAgICANCiAgICAgICAgICAgICAgICAgICAgICAgICAgICAgICAgIC AgICAgICAgICAgICAgICAgICAgICAgICAgICAgICAgICAgICAgICAgICAgICAgICAgICAgICAgICAgIC AgICAgICANCiAgICAgICAgICAgICAgICAgICAgICAg ICAgICAgICAgICAgICAgICAgICAgICAgICAgICAgICAgICAgICAgICAgICAgICAgICAgICAgICAgICAg ICAgICAgICAgICAgICAgICANCiAgICAgICAgICAgICAgICAgICAgICAgICAgICAgICAgICAgICAgICAg ICAgICAgICAgICAgICAgICAgICAgICAgICAgICAgIC AgICAgICAgICAgICAgICAgICAgICAgICAgICANCjw/yKJfF1ehvMAwunW7G6bwKb4ZDf9WFD6os5SsZY WuGCjuygGrHuaNMlUpZOFcCoeMOsi8KZtqJZ6XoBQlR3PtB3QbQOfyFL0IPXUoCVZejSHvGHFoQINlXp B3VQHfHQrtBZ3UfAVwAPrpUXSnGPTrUmNbWHYjNBCz CPKnUYXkEXDLGL2BKbEnI9AnuU23YALOTc0+RDldzcVmWxyWNbQ7WAYtx4AiEMc7WE2NWMFaAqxcs7Hg BvxzRNBQFDmnRZ9VECB9MQT3OLPyFh7FNQDpU296aaJoZP6RYl7RSdBtBE7cgj7YDpgbPPToUjjLHma0 EWyoHO6WmADrPLkYZqAuAadiUB6sqOWPotQgSKRJOZ XmlIJwQdCpOtUwZhBeEGl4VwbbON8mPSlcVO9DLVZ3HHnyGCRrBIHyB4zDXoOkCZXyYpIncBwmIC4ALy NjJ2KokqOxhIEzYNSwRHEPNz7+LBnryaAgDfwIHlOmOOEiy8ReKCl0VQ3WQPMmFZczOO1AWVOfaX0lHJ jnLE1AKeMbGoKlUAHPYkTpN62ygYOpFPs2O1VvEuSm ZGVkRmlsZXMgPDwvTmFtZXMgWyBdDQogID4+ID4+GPvbJN4GCDdwzvCaEIRsNp4SHPKnNRJlYR6rQDSq JZVuE1F7wWrrFFAJQqUwP6shwhniFI2zGPVmV876vHbmofSdXYQ8MJEoZg6KEFMsEKS4BEPugXJfLkst QVRADSmpKB1OiRWeUSG6lJ7lMMmfKDJyCUDqK8eWPu ZuoQyrGZ51kUcrlrVxuRMuRKq+Av9LXI4xk5ZqQVt7pcZeRIvyWGYlSSboOWFgMHDjZSLvPFD3FAZ4XU SJYaSoRDGfNJRuVHtfSTOuZYTxrv5VSGAwTMMzYMc6WyLaMQNzDMYfJElwZGOhLJW7GMenXBZeSOWxVB 0GLqStPMKaJVKiPXwnVKUuSFQfzf9HOHNhMFNrUiDg LPCqMFKiSINcKKveJWGrKUYkFHTiYRWvMSNaIX6BHuAdVVMbHILuSuMqDYWsQDOnbh2ULTBwIJFuOtBy KaGbITLhEMUcUPlxGSWqPJX4PQHkEMDjKSVbLS7JVsZyRNGrLIdbHxcoOYBaJUQbof8VJYNkWZCnCAf6 URRxOBXyDMCjWTozAJJrGNDgZAH2NWUfBSDoSM3UQq HwXAUsPFX3SRzhVPDtVUPclr6OZPDrSJOfFlGcKCOfLWEwLNSpUFuyALBeLJNiXgq2LLDxSCSvTW4JCb PvRWPgAXQcOIUaYAPrCEWwff4OTERvFIVxKUP5NKOsJXGbECTvVKssPNZmYLA6YwS1JFOuWTJhZB3JJh OrWQHsQwMdKkXsPTSmTDWhdi8QLWWiUAVcXbN0ErBk LOWrLVRlLCpoUYBcYKQhXVUlNZQjVUUqAD6XStWyRCQqUyJfInxsEJLbILIsqh4VGPMrTTZzCUWhAJJw GNTtJWHwIRxdLTKjBBR0ViD0QJFzRSEfBP3LOiLuWENhZmK3ZWqbYNNzRBDqdt0NUEYkZSFxXGzwPEAq HKXsGEKxWGniEEJnNDC2VQLoWIBtONGgMR6RYlPlYB FaPpy5NTooKMNfJQZcqm9VYYBnOFMqPeI8BSToVINnDDMnWUtyTHZdYXT9XVXlITJvHEXsWH8GQjBeCC fnKQHZFml0XYlsL5k6SZTnNS0AF7Sbx2DjNgXuARFJBXdlJY9wtxBwEILiKc9IL6qVUns6UKfvIANeJY BtSCUsMwltNcIbE4NtHBe6WCHnB3P2KT2lTUqrTZE9 DrMwC2LxHHAyEIPmYlT3IQSjNWR5InFwRwmiJeGxON5XJs8JOsG6GQD9mQSdAf2NFsnoQPhSGwGyBQ0N DQo= ID Date Data Source [id number] 08/28/2019 06:59:52 AM [facility] Name Value Range Interpretation Code Description Data Sherron rce(s) Supporting Document(s) Glucose [Mass/volume] in Capillary blood by Glucometer 114 mg/dL 70- 140 [facility] ID Date Data Source [id number] 08/07/2019 03:33:51 PM [facility] CT LOWER EXTREMITY WITHOUT CONTRAST 7370 0FINAL [...] FINDINGS: Severe osteoarthritic changes right hip with wias-fa-yskq opposition. Subchondral sclerosis and large subcortical bone [...] rce(s) Supporting Document(s) ID Date Data Source [id number] 08/08/2019 09:27:33 AM [facility] Service Cmnt XXX-Imp : Microorganism XXX Cult : Polymerase chain reaction assay was NEGATIVE for both methicillin-resistant Staphylococcus aureus (MRSA) and methicillin-susceptible Staphylococcus aureus (MSSA) Name Value Range Interpretation Code Description Data Sherron rce(s) Supporting Document(s) ID Date Data Source [id number] 08/07/2019 09:18:49 PM [facility] Name Value Range Interpretation Code Description Data Sherron rce(s) Supporting Document(s) ABO and Rh group [Type] in Blood [facility] Blood group antibody screen [Presence] in Serum or Plasma [facility] Blood bank comment [facility] ID Date Data Source [id number] 07/31/2019 12:04:00 PM EST [facility] ([facility]) Name Value Range Interpretation Code Description Data Sherron rce(s) Supporting Document(s) EKG [facility] ID Date Data Source [id number] 07/29/2019 05:27:49 PM [facility] XR HIPS- BILAT, 3-4 VIEWS [id number] RE SULTInterpreted by:MARIO ALBERTO Marcelinolinical history: Bilateral [...] rce(s) Supporting Document(s) ID Date Data Source [id number] 07/28/2019 09:30:00 AM EST [facility] ([facility]) Name Value Range Interpretation Code Description Data Sherron rce(s) Supporting Document(s) Prothrombin Time 12.6 s 11.8-14.0 Normal (applies to non-numeric results) [facility]) Inr 0.97 Normal (applies to non-numeric resul ts) [facility]) THERAPUTIC HUMAN INR VALUES INDICATIONS NORMAL RANGES PROPHYLAXIS/TREATMENT OF: VENOUS THROMBOSIS 2.0-3.0 PULMONARY EMBOLISM 2.0-3.0 PREVENTION OF SYSTEMIC EMBOLISM FROM: TISSUE HEART VALVES 2.0-3.0 ACUTE MYOCARDIAL INFARCTION 2.0-3.0 VALVULAR HEART DISEASE 2.0-3.0 ATRIAL FIBRILLATION 2.0-3.0 MECHANICAL VALVES(HIGH RISK) 2.5-3.5 RECURRENT MYOCARDIAL INFARCTION 2.5-3.5 ID Date Data Source [id number] 07/28/2019 09:30:00 AM EST [facility] ([facility]) Name Value Range Interpretation Code Description Data [facility] rce(s) Supporting Document(s) Red Blood Count 4.37 10 4.00-5.40 Normal (applies to non-numeric results) [facility]) White Blood Count 3.9 10 4.0-10.0 Below low normal [facility]) Hematocrit 41.7 % 36.0-47.0 Normal (applies to non-numeric resul ts) [facility]) Hemoglobin 13.6 g/dL 12.0-15.5 Normal (applies to non-numeric resul ts) [facility] ([facility]) Mean Corpuscular Hemoglobin 31.1 pg 27.0-33.0 Norm al (applies to non-numeric results) [facility] ([facility]) Mean Corpuscular HGB Conc 32.6 g/dL 32.0-36.5 Normal (applies to non-numeric results) [facility] ([facility]) Mean Corpuscular Volume 95.4 fl 80.0-96.0 Normal ( applies to non-numeric results) [facility] ([facility]) Platelet Count, Automated 342 10 150-450 Normal (applies to non-numeric results) [facility] ([facility]) Red Cell Distribution Width 14.4 % 11.5-14.5 Norm al (applies to non-numeric results) [facility] ([facility]) Neutrophils % 50.2 % 36.0-66.0 Normal (applies to non-numeric re sults) [facility] ([facility]) Lymph % 34.4 % 24.0-44.0 Normal (applies to non-numeric resul ts) [facility] ([facility]) [place] % 10.8 % 0.0-5.0 Above high normal [facility] ([facility]) Baso % 1.5 % 0.0-1.0 Above high normal [facility] ([facility]) Immature Granulocyte % 0.3 % 0-3.0 Normal (applies to non-n umeric results) [facility] ([facility]) Eos % 2.8 % 0.0-3.0 Normal (applies to non-numeric resul ts) [facility] ([facility]) Lymph # 1.3 10 1.5-5.0 Below low normal [facility] ( [facility]) Nucleated Red Blood Cell % 0.0 % 0-0 Normal (applies to n on-numeric results) [facility] ([facility]) Neutrophils # 2.0 10 1.5-8.5 Normal (applies to non-numeric re sults) [facility] ([facility]) Eos # 0.1 10 0.0-0.5 Normal (applies to non-numeric resul ts) [facility] ([facility]) [place] # 0.4 10 0.0-0.8 Normal (applies to non-numeric resul ts) [facility] ([facility]) Baso # 0.1 10 0.0-0.2 Normal (applies to non-numeric resul ts) [facility] ([facility]) ID Date Data Source [id number] 07/28/2019 09:30:00 AM EST [facility] ([facility]) Name Value Range Interpretation Code Description Data Sherron rce(s) Supporting Document(s) Cholesterol Level 314 mg/dL Above high normal [facility] ([facility]) Triglycerides Level 55 mg/dL Normal (applies to non-nume patricia results) [facility] ([facility]) HDL Cholesterol 101 mg/dL Normal (applies to non-numeric results) [facility] ([facility]) LDL Cholesterol 202 mg/dL Above high normal [facility] ([facility]) Non-HDL-C 213 mg/dL Normal (applies to non-numeric resul ts) [facility] ([facility]) Cholesterol Risk Ratio 3.108 Normal (applies to non-n umeric results) [facility] ID Date Data Source [id number] 07/28/2019 09:30:00 AM EST [facility] ([facility]) Name Value Range Interpretation Code Description Data Sherron rce(s) Supporting Document(s) Hemoglobin A1c 6.1 % Normal (applies to non-numeric r esults) [facility] REFERENCE RANGES: 4.5-5.6% NORMAL 5.7-6.4% SUGGESTS IMPAIRED GLUCOSE META BOLISM >= 6.5% ABNORMAL Estimated Average Glucose 128 mg/dL 60-110 Above high normal [facility] ([facility]) ID Date Data Source [id number] 07/28/2019 09:30:00 AM EST [facility] ([facility]) Name Value Range Interpretation Code Description Data Sherron rce(s) Supporting Document(s) Glucose, Fasting 111 mg/dL 70-100 Above high normal [facility] ([facility]) Blood Urea Nitrogen 12 mg/dL 7-18 Normal (applies to non-nume patricia results) [facility] ([facility]) Creatinine For GFR 0.71 mg/dL 0.55-1.30 Normal (applies to non -numeric results) [facility] ([facility]) Glomerular Filtration Rate > 60.0 Normal (applies to n on-numeric results) [facility] ([facility]) <content>Units are mL/min/1.73 m2</content>
<content></content>
<content>Chronic Kidney Disease Staging per NKF:</content>
<content></content>
<content>Stage I & II GFR >=60 Normal to Mildly Decreased</content>
<content>Stage III GFR 30- 59 Moderately Decreased</content>
<content>Stage IV GFR 15-29 Severely Decreased</content>
<content>Stage V GFR <15 Very Little GFR Left</content>
<content>ESRD GFR <15 on [employer]</content>
<content></content> Sodium Level 137 meq/L 136-145 Normal (applies to non-numeric res ults) [facility] ([facility]) Potassium Serum 5.0 meq/L 3.5-5.1 Normal (applies to non-numeric results) [facility] ([facility]) Chloride Level 102 meq/L 98-107 Normal (applies to non-numeric r esults) [facility] ([facility]) Anion Gap 6 meq/L 8-16 Below low normal [facility] ( [facility]) Carbon Dioxide Level 29 meq/L 21-32 Normal (applies to non-num davonte results) [facility] ([facility]) Calcium Level 9.8 mg/dL 8.8-10.2 Normal (applies to non-numeric re sults) [facility] ([facility]) Alt/SGPT 20 U/L 12-78 Normal (applies to non-numeric resul ts) [facility] ([facility]) Ast/Sgot 10 U/L 7-37 Normal (applies to non-numeric resul ts) [facility] ([facility]) Bilirubin,Total 0.5 mg/dL 0.2-1.0 Normal (applies to non-numeric results) [facility] ([facility]) Alkaline Phosphatase 37 U/L 45-117 Below low normal [facility] ([facility]) Albumin 3.8 GM/DL 3.2-5.2 Normal (applies to non-numeric resul ts) [facility] ([facility]) Albumin/Globulin Ratio 1.27 1.00-1.93 Normal (applies to non-numeric results) [facility] ([facility]) Total Protein 6.8 GM/DL 6.4-8.2 Normal (applies to non-numeric re sults) [facility] ([facility]) Procedure Social History Code Duration Value Status Description Data Source(s ) Smoking 09/10/2020 12:00:00 AM EST Patient has never smoked co mpleted Patient has never smoked [facility] ([facility]) Alcohol intake 04/03/2020 12:00:00 AM EDT Current drinker of al cohol (finding) completed Current drinker of alcohol (finding) [facility] Tobacco use and exposure 04/03/2020 12:00:00 AM EDT Never used co mpleted Never used [facility] Smoking 04/03/2020 12:00:00 AM EDT Never smoker completed Never s [facility] Alcohol intake 10/17/2019 12:00:00 AM EST Current drinker of al cohol (finding) completed Current drinker of alcohol (finding) [facility] Smoking 10/17/2019 12:00:00 AM EST Never smoker completed Never s [facility] Alcohol intake 09/19/2019 12:00:00 AM EST Current drinker of al cohol (finding) completed Current drinker of alcohol (finding) [facility] Smoking 09/19/2019 12:00:00 AM EST Never smoker completed Never s [facility] Alcohol intake 08/29/2019 12:00:00 AM EST Current drinker of al cohol (finding) completed Current drinker of alcohol (finding) [facility] Smoking 08/29/2019 12:00:00 AM EST Never smoker completed Never s [facility] Alcohol intake 08/07/2019 12:00:00 AM EST Current drinker of al cohol (finding) completed Current drinker of alcohol (finding) [facility] Smoking 08/07/2019 12:00:00 AM EST Never smoker completed Never s [facility] Vital Signs ID Date Data Source UNK Name Value Range Interpretation Code Description Data Source(s) [place] body weight 135 [lb_av] 135 [lb_av] [facility] ([facility]) Oxygen saturation in Arterial blood by Pulse oximetry 98 % 98 % [facility] ([facility]) Body temperature 98.0 [degF] 98.0 [degF] [facility] ([facility]) Respiratory rate 14 /min 14 /min [facility] ( [facility]) Heart rate 100 /min 100 /min [facility] ([facility]) Body mass index (BMI) [Ratio] 29.9 kg/m2 29.9 k g/m2 [facility] ([facility]) Body weight 191.00 [lb_av] 191.00 [lb_av] [facility] ([facility]) Body height 67 [in_i] 67 [in_i] [facility] ([facility]) 5'7" Diastolic blood pressure 72 mm[Hg] 72 mm[Hg] [facility] ([facility]) Systolic blood pressure 160 mm[Hg] 160 mm[Hg] [facility] ([facility]) [place] body weight 135 [lb_av] 135 [lb_av] [facility] ([facility]) Oxygen saturation in Arterial blood by Pulse oximetry 98 % 98 % [facility] ([facility]) Body temperature 98.0 [degF] 98.0 [degF] [facility] ([facility]) Respiratory rate 18 /min 18 /min [facility] ( [facility]) Heart rate 97 /min 97 /min [facility] ([facility]) Body mass index (BMI) [Ratio] 31.2 kg/m2 31.2 k g/m2 [facility] ([facility]) Body weight 199.00 [lb_av] 199.00 [lb_av] [facility] ([facility]) Body height 67 [in_i] 67 [in_i] [facility] ([facility]) 5'7" Diastolic blood pressure 84 mm[Hg] 84 mm[Hg] [facility] ([facility]) Systolic blood pressure 166 mm[Hg] 166 mm[Hg] [facility] ([facility]) [place] body weight 135 [lb_av] 135 [lb_av] [facility] ([facility]) Oxygen saturation in Arterial blood by Pulse oximetry 99 % 99 % [facility] ([facility]) Body temperature 98.1 [degF] 98.1 [degF] [facility] ([facility]) Respiratory rate 18 /min 18 /min [facility] ( [facility]) Heart rate 94 /min 94 /min [facility] ([facility]) Body mass index (BMI) [Ratio] 30.0 kg/m2 30.0 k g/m2 [facility] ([facility]) Body weight 191.25 [lb_av] 191.25 [lb_av] [facility] ([facility]) Body height 67 [in_i] 67 [in_i] [facility] ([facility]) 5'7" Diastolic blood pressure 76 mm[Hg] 76 mm[Hg] [facility] ([facility]) Systolic blood pressure 124 mm[Hg] 124 mm[Hg] [facility] ([facility]) Oxygen saturation in Arterial blood by Pulse oximetry 99 % 99 % [facility] Body temperature 99.1 [degF] 99.1 [degF] [facility] ([facility]) Respiratory rate 18 /min 18 /min [facility] ( [facility]) Heart rate 53 /min 53 /min [facility] ([facility]) Body mass index (BMI) [Ratio] 30.2 kg/m2 30.2 k g/m2 [facility] ([facility]) Body weight 193.12 [lb_av] 193.12 [lb_av] [facility] ([facility]) Body height 67 [in_i] 67 [in_i] [facility] ([facility]) 5'7" Diastolic blood pressure 78 mm[Hg] 78 mm[Hg] [facility] ([facility]) Systolic blood pressure 136 mm[Hg] 136 mm[Hg] [facility] ([facility]) Oxygen saturation in Arterial blood by Pulse oximetry 99 % 99 % [facility] ([facility]) Body temperature 98.3 [degF] 98.3 [degF] [facility] Respiratory rate 16 /min 16 /min [facility] ( [facility]) Heart rate 90 /min 90 /min [facility] ([facility]) Body mass index (BMI) [Ratio] 30.0 kg/m2 30.0 k g/m2 [facility] Body weight 191.38 [lb_av] 191.38 [lb_av] [facility] ([facility]) Body height 67 [in_i] 67 [in_i] [facility] ([facility]) 5'7" Diastolic blood pressure 74 mm[Hg] 74 mm[Hg] [facility] ([facility]) Systolic blood pressure 122 mm[Hg] 122 mm[Hg] M ON LICENSE OF [facility] ([facility]) Patient Treatment Plan of Care Planned Activity Planned Date Details Description Data Source (s) Amoxicillin 500 MG Oral Capsule 01/29/2020 12:00:00 AM [facility] Rosuvastatin calcium 5 MG Oral Tablet 08/31/2019 09:00:00 AM [facility] Aspirin 81 MG Oral Tablet 08/31/2019 12:00:00 AM [facility] Multivital 08/31/2019 12:00:00 [facility] Losartan Potassium 50 MG 08/31/2019 12:00:00 AM [facility] Levothyroxine Sodium 75 MCG 08/31/2019 12:00:00 AM [facility] Fish Oil 875 MG 08/31/2019 12:00:00 AM EST [facility] ([facility]) Docusate Sodium 100 MG 08/31/2019 12:00:00 AM EST [facility] ([facility]) Crestor 5 MG 08/31/2019 12:00:00 AM EST N [facility] ([facility]) Calcium 600+D 600-400 MG-UNIT 08/31/2019 12:00:00 AM EST [facility] ([facility]) Aspirin 81 MG 08/31/2019 12:[facility] Acetaminophen Extra Strength 500 MG 08/31/2019 12:00:00 AM [facility] ([facility]) Osteo Bi-Flex Adv Joint Shield 08/31/2019 12:00:00 AM [facility] ([facility]) Losartan Potassium 25 MG Oral Tablet 08/30/2019 09:00:00 AM [facility] Oxycodone Hydrochloride 5 MG Oral Tablet 08/30/2019 12:00:00 AM [facility] Docusate Sodium 100 MG Oral Capsule 08/30/2019 12:00:00 AM [facility] Acetaminophen 325 MG Oral Tablet 08/30/2019 12:00:00 AM [facility] Oxycodone Hydrochloride 5 MG Oral Tablet 08/28/2019 12:07:03 PM [facility] fentaNYL (SUBLIMAZE) (PF) injection 25 mcg 08/28/2019 12:07:03 PM [facility] metaxalone 800 MG Oral Tablet 08/28/2019 12:07:03 PM [facility] Bisacodyl 10 MG Rectal Suppository 08/28/2019 12:07:03 PM [facility] Magnesium Hydroxide 80 MG/ML Oral Suspension 08/28/2019 12:07:03 PM [facility] sodium phosphate 67.8 MG/ML / Sodium Phosphate, Monoba sic 185 MG/ML Enema 08/28/2019 12:07:03 PM [facility] Aspirin [address] [facility]
[2020-09-11 23:45] LABS: AMPHETAMINES LEVEL URINE NEGATIVE (NEGATIVE); BARBITURATES URINE NEGATIVE (NEGATIVE); BENZODIAZEPINES URINE NEGATIVE (NEGATIVE); CANNABINOIDS URINE NEGATIVE (NEGATIVE); COCAINE METABOLITE URINE NEGATIVE (NEGATIVE); METHADONE URINE NEGATIVE (NEGATIVE); OPIATES URINE NEGATIVE (NEGATIVE); PHENCYCLIDINE URINE NEGATIVE (NEGATIVE)
[2020-09-11 23:49] LABS: BLOOD UREA NITROGEN 19 MG/DL (7-18); CALCIUM LEVEL 9.7 MG/DL (8.8-10.2); CARBON DIOXIDE LEVEL 24 MEQ/L (21-32); CHLORIDE LEVEL 105 MEQ/L (98-107); CK-MB VALUE MASS < 1.0 NG/ML (<3.6); CPK CREATINE PHOSPHOKINASE 79 U/L (26-192); CREATININE FOR GFR 0.88 MG/DL (0.55-1.30); ETHYL ALCOHOL (ETHANOL) < 0.003 % (0.000-0.010); GLOMERULAR FILTRATION RATE > 60.0 (>45); GLUCOSE, FASTING 129 MG/DL (70-100); MB/CK RELATIVE INDEX 1.27 (< OR =4); POTASSIUM SERUM 3.3 MEQ/L (3.5-5.1); SODIUM LEVEL 139 MEQ/L (136-145); THYROID STIMULATING HORMONE 0.643 uIU/ML (0.358-3.740); TROPONIN I < 0.02 NG/ML (< 0.10)
--- NOTE | 2020-09-11 23:54 | REPVR ---
PROCEDURE INFORMATION: Exam: XR Chest, 1 View Exam date and time: 09/11/2020 10:35 PM Age: 69 years old Clinical indication: Other: Syncope/ near-syncope; Additional info: Syncope/near-syncope TECHNIQUE: Imaging protocol: XR of the chest Views: 1 view. COMPARISON: CR PORTABLE CHEST X-RAY 07/24/2018 6:22 PM FINDINGS: Lungs: The lungs appear clear. Pleural spaces: There is no evidence of pneumothorax or pleural effusion. Heart/Mediastinum: The heart is normal in size. Bones/joints: There is osteophyte formation of the thoracic spine. IMPRESSION: Clear appearing lungs. Electronically signed by: Alpesh Grimes On 09/11/2020 23:54:13 PM
[2020-09-12] VITALS (25 sets, daily range): BP systolic 108–172; BP diastolic 51–84
--- NOTE | 2020-09-12 00:08 | REPVR ---
PROCEDURE INFORMATION: Exam: CT Head Without Contrast Exam date and time: 09/11/2020 10:26 PM Age: 69 years old Clinical indication: Injury or trauma; Fall; Concussion/head injury; Additional info: Syncope TECHNIQUE: Imaging protocol: Computed tomography of the head without contrast. Radiation optimization: All CT scans at this facility use at least one of these dose optimization techniques: automated exposure control; mA and/or kV adjustment per patient size (includes targeted exams where dose is matched to clinical indication); or iterative reconstruction. COMPARISON: No relevant prior studies available. FINDINGS: Brain: There is no evidence of intracranial bleed. There is no evidence mass effect. Cerebral ventricles: Normal appearing ventricles. Bones/joints: There is no evidence of fracture. Paranasal sinuses: Clear paranasal sinuses. Mastoid air cells: Clear mastoid air cells. Orbital cavity: The orbits appear symmetric. Soft tissues: There is no soft tissue swelling. IMPRESSION: Normal appearing CT scan of the brain. Electronically signed by: Alpesh Grimes On 09/12/2020 00:07:37 AM
[2020-09-12] MEDS ORDERED: OMEG100011 PO (00:10)
[2020-09-12] MEDS ORDERED: VITMTA PO (00:11)
[2020-09-12] MEDS ORDERED: SYNT75TA PO (00:11)
[2020-09-12] MEDS ORDERED: ASPI-161 PO (00:11)
[2020-09-12] MEDS ORDERED: CALC500T44 PO (00:11)
[2020-09-12] MEDS ORDERED: GLUCTAB64 PO (00:11)
[2020-09-12] MEDS ORDERED: C 50TAB PO (00:11)
[2020-09-12] MEDS ORDERED: ROSU5TAB5 PO (00:11)
[2020-09-12] MEDS ORDERED: UBIQ200C PO (00:11)
[2020-09-12] MEDS ORDERED: POTASSIUM CHLORIDE 10 MEQ SR TABLET PO ONE (00:15)
[2020-09-12 00:17] LABS: MAGNESIUM LEVEL 2.1 MG/DL (1.8-2.4)
[2020-09-12] MEDS ORDERED: MOM 30ML SUSPENSION UDC PO PRN (01:00)
[2020-09-12] MEDS ORDERED: ATROPINE SULF 1MG/10ML SYRINGE (J0461) IV PRN (01:00)
[2020-09-12] MEDS ORDERED: MAALOX 30 ML SUSP *UDC PO PRN (01:00)
[2020-09-12] MEDS ORDERED: ACETAMINOPHEN TAB 650MG DOSE (2X325MG) PO PRN (01:00)
[2020-09-12 01:21] LABS: RSV AMPLIFICATION NEGATIVE (NEGATIVE)
--- OUTSIDE RECORDS SUMMARY | 2020-09-12 01:32 | CCD ---
Author Author [facility] Organization [facility] Address Unknown Phone Unavailable Care Team Providers Care Mechanical Lead Name Role Phone Ellis Ruiz Unavailable Unavailable [...] Unavailable BIANKA PETERS MD Unavailable Unavailable BIANKA PETESR MD Unavailable Unavailable BIANKA PETERS MD Unavailable [...] A Pierre PA Unavailable Unavailable O'radha, A Iperre PA Unavailable Unavailable O'radha, A Pierre PA [...] is protected by Article 27-F of the [facility] Public Health law. If you continue you may have access to information: Regarding HIV / AIDS; Provided by facilities licensed or operated by the [facility] Office of Mental Health; or Provided by the [facility] Office for People With Developmental Disabilities. If such information is present, then the following [facility] mandated warning applies: This information has been [...] law may result in a fine or detention sentence or both. A general authorization for the release of medical or other information is NOT sufficient authorization for further disc losure. Allergies and Adverse Reactions Type Description Substance Reaction Status Data Source(s ) Drug Class NO KNOWN ALLERGIES NO KNOWN ALLERGIES [facility] No Known Drug Allergies No Known Drug Allergies No Known Drug Aller gies active NETSMART ([facility] ) Family History Family Member Name Family Member Gender Family Member Status Date o f Status Description Data Source(s) Unknown Male Problem MEDENT ([facility]) Unknown Male Problem [facility] ([facility]) Unknown Female Problem MEDENT ([facility]) Encounters Encounter Providers Location Date Indications Data Source(s ) Outpatient Attender: ROSIE DALEY DO [facility] 09/10/2020 09:40:00 AM EST [facility] ([facility]) Outpatient Attender: Lux JOSHI 09/03/2020 12:00:00 AM EST [facility] Outpatient Attender: ROSIE DALEY [facility] 08/20/2020 03:00:00 PM EST MEDENT ([facility]) Outpatient Attender: Lux JOSHI [id number] 04/03/2020 12 :00:00 AM EDT Presence of right artificial hip joint [facility] Presence of right artificial hip joint Outpatient Referrer: BIANKA PETERS MD 04/03/2020 12:00:0 0 AM EDT Presence of right artificial hip joint [facility] Presence of right artificial hip joint Outpatient Attender: BIANKA PETERS MD 03/12/2020 12:00:00 AM E [facility] Outpatient Attender: Pierre JOSHI [facility] 02/01/2020 09:30:00 AM EDT MEDENT ([facility]) Outpatient Attender: BIANKA PETERS MD 01/23/2020 12:00:00 AM E [facility] Outpatient Attender: Lux JOSHI 12/19/2019 12:00:00 AM EDT [facility] Outpatient Attender: BIANKA PETERS MD [id number] 0 12:00:00 AM EST - 10/17/2019 02:04:23 PM EST Presence of right artificial hip joint [facility] Presence of right artificial hip joint Outpatient Referrer: BIANKA PETERS MD 10/17/2019 12:00:0 0 AM EST Presence of right artificial hip joint [facility] Presence of right artificial hip joint Outpatient Attender: BIANKA PETERS MD [id number] 0 12:00:00 AM EST - 10/12/2019 07:51:28 AM EST Unilateral primary osteoarthritis, right [facility] Unilateral primary osteoarthritis, right hip Outpatient Referrer: BIANKA PETERS MD 09/19/2019 12:00:0 0 AM EST Unilateral primary osteoarthritis, right [facility] Unilateral primary osteoarthritis, right hip Outpatient Attender: BIANKA PETERS MD 09/12/2019 12:00:00 AM E [facility] Outpatient Attender: BIANKA PETERS MD 09/05/2019 12:00:00 AM E [facility] Outpatient Attender: Sumanth JOSHI [facility] 09/04/2019 01:40:00 PM EST [facility] ([facility] 08/31/2019 12:00:00 AM EST - 020 08:44:15 AM EST [facility] Inpatient Attender: BIANKA PETERS MDAdmitter: BIANKA PETERS MD [id number] 08/28/2019 12:00:00 AM EST - 08/30/2019 02:57:00 PM EST Unilateral primary osteoarthritis, right [facility] Unilateral primary osteoarthritis, right hip Patient discharged. Outpatient Attender: BIANKA PETERS MDReferrer: BIANKA PETERS MD 08/07/2019 12:00:00 AM EST - 08/08/2019 12:00:00 AM EST [facility] Outpatient Referrer: BIANKA PETERS MD 08/07/2019 12:00:0 0 AM EST Unilateral primary osteoarthritis, right [facility] Unilateral primary osteoarthritis, right hip Outpatient 08/07/2019 12:00:00 AM [facility] Outpatient Attender: Pierre JOSHI [facility] 07/31/2019 10:00:00 AM EST [facility] ([facility]) Outpatient Referrer: BIANKA PETERS MD 06/29/2019 12:00:0 0 AM EST Pain in right [facility] Pain in right hip Immunizations Vaccine Date [...] 12:00:00 A M EST ORAL completed MEDENT ([facility]) 500 mg 01/31/2020 12:00:00 AM EDT [...] by mouth 1 hour prior to procedure [facility] 500 mg 01/29/2020 12:00:00 AM [...] Yocasta 08/31/19 at 0900, For 30 days [facility] Medication administered onsite Aspirin 81 MG Oral Tablet Aspirin 81 MG Oral Tablet 08/31/2019 1 2:00:00 AM EST 81 mg Oral active Take 1 tablet by mouth daily [facility] Crestor 5 MG Crestor 08/31/2019 12:00:00 AM EST co mpleted NETSMART ([facility]) Docusate Sodium 100 MG Docusate Sodium 08/31/2019 12:00:00 AM EST completed [facility]SMART ([facility]) Fish Oil 875 MG Fish Oil 08/31/2019 12:00:00 AM EST completed [facility]SM[facility] ([facility]) Levothyroxine Sodium 75 MCG Levothyroxine Sodium 08/31/2019 12:00:00 AM EST completed [facility]SMART ( [facility]) Losartan Potassium 50 MG Losartan Potassium 08/31/2019 12:00:00 AM EST completed [facility]SM[facility] ([facility]) Multivital Multivital 08/31/2019 12:00:00 AM EST c ompleted NETSMART ([facility]) Osteo Bi-Flex Adv Joint Shield Osteo Bi-Flex Adv Joint Shiel d 08/31/2019 12:00:00 AM EST completed [facility]SMART ([facility]) Aspirin 81 MG Aspirin 08/31/2019 12:00:00 AM EST c ompleted NETSMART ([facility]) Acetaminophen Extra Strength 500 MG Acetaminophen Extra Stre ngth 08/31/2019 12:00:00 AM EST completed NETSMART ([facility]) Calcium 600+D 600-400 MG-UNIT Calcium 600+D 08/31/2019 12:00:00 AM EST completed [facility]SMART ([facility]) Losartan Potassium 25 MG Oral Tablet losartan (COZAAR) tablet 50 mg losartan (COZAAR) tablet 50 mg 08/30/2019 09:00:00 AM EST 50 mg Oral active 50 mg, Oral, Daily Standard, First dose (after last modification) on Wed08/30/19 at 0900, For 30 days
Check vital signs before administering
[facility] Medication administered onsite Acetaminophen 325 MG Oral Tablet Acetaminophen 325 MG Oral T ablet 08/30/2019 12:00:00 AM EST 650 mg Oral active Take 2 tablets by mouth every 6 (six) hours as needed (mild pain) for up to 10 days [facility] Oxycodone Hydrochloride 5 MG Oral Tablet oxyCODONE HCl 5 MG Oral Tablet (ROXICODONE) oxyCODONE HCl 5 MG Oral Tablet (ROXICODONE) 08/30/2019 12:00:00 AM EST Oral active Take 1-2 tablets by mouth every 4 (four) hours as needed (moderate to severe pain) for up to 7 days, Max Daily Dose: 8 tablets [facility] Docusate Sodium 100 MG Oral Capsule Docu sate Sodium 100 MG Oral Capsule (COLACE) Docusate Sodium 100 MG Oral Capsule (COLACE) 08/30/2019 12:00:00 AM EST 100 mg Oral active Take 1 cap ledy by mouth Two times daily as needed for Constipation for up to 10 days [facility] MAGNESIUM GLUCONATE 500 MG Oral Tablet m agnesium gluconate (MAGONATE) tablet TABS 500 mg magnesium gluconate (MAGONATE) tablet TABS 500 mg 08/16 09:00:00 AM EST 500 mg Oral active 500 mg, Oral, Daily Standard, First dose on Wed08/29/19 at 0900, For 30 days [facility] Medication administered onsite 0.4 ML Enoxaparin sodium 100 MG/ML Prefi lled Syringe enoxaparin sodium (LOVENOX) injection 40 mg enoxaparin sodium (LOVENOX) injection 40 mg 08/29/2019 09:00:00 AM EST 40 mg Subcutaneous active 40 mg, Subcutaneous, Daily Standard, First dose on Wed08/29/19 at 0900, For 30 days [facility] Medication administered onsite sodium chloride 0.9 % bolus 500 mL 9732-0631-51 08/29/2019 07:15:00 AM EST 500 mL Intravenous completed 500 mL, Intravenous, Once, Wed08/29/19 at 0715, For 1 dose [facility] Medication administered onsite Levothyroxine Sodium 0.075 MG Oral Table t levothyroxine (SYNTHROID, LEVOTHROID) tablet 75 mcg levothyroxine (SYNTHROID, LEVOTHROID) tablet 75 mcg 06:00:00 AM EST 75 ug Oral active 75 mcg, Oral, Daily at 0600, First dose on Wed08/29/19 at 0600, For 30 days [facility] Medication administered onsite sennosides, CHCF 8.6 MG Oral Tablet senna 8.6 MG 2 tablet sen na 8.6 MG 2 tablet 08/28/2019 10:00:00 PM EST 2 {tbl} Oral active 2 tablet, Oral, Nightly, First dose on Wed08/28/19 at 2200, For 30 days [facility] Medication administered onsite sodium chloride 0.9 % bolus 500 mL [id number] 08/28/2019 09:15:00 PM EST 500 mL Intravenous completed 500 mL, Intravenous, Once, Wed08/28/19 at 2115, For 1 dose [facility] Medication administered onsite Docusate Sodium 100 MG Oral Capsule docusate sodium (C OLACE) capsule 100 mg docusate sodium (COLACE) capsule 100 mg 08/28/2019 09:00:00 PM EST 100 mg Oral active 100 mg, Oral, 2 Times Daily, First dose on Wed08/28/19 at 2100, For 30 days [facility] Medication administered onsite 2 ML Metoclopramide 5 MG/ML Prefilled Sy ringe metoclopramide (REGLAN) injection 10 mg metoclopramide (REGLAN) injection 10 mg 08/28/2019 06:08:[address] 10 mg Intravenous active 10 mg, I ntravenous, Every 6 hours PRN, Nausea, Starting Wed08/28/19 at 1808, For 30 days [facility] Medication administered onsite sodium chloride [...] 1207, For 30 days [Order 6 End] [facility] Medication administered onsite Cefazolin 2000 MG Injection ceFAZolin (ANCEF) IVPB 2 g in dextrose (premix) ceFAZolin (ANCEF) IVPB 2 g in dextrose (premix) 08/28/2019 05:00:00 PM EST 2 g Intravenous completed 2 g, Int ravenous, Administer over 30 Minutes, Every 8 hours, First dose on Wed08/28/19 at 1700, For 2 doses [facility] Medication administered onsite Bisacodyl 10 MG Rectal Suppository bisacodyl (DULCOLAX ) suppository 10 mg bisacodyl (DULCOLAX) suppository 10 mg 08/28/2019 12:07:03 PM EST 10 mg Rectal active 10 mg, Rectal, Daily PRN, Constipation, Starting Wed08/28/19 at 1207, For 30 days [facility] Medication administered onsite Magnesium Hydroxide 80 MG/ML Oral Suspen silverio magnesium hydroxide (MILK OF MAGNESIA) 400 MG/5ML suspension 30 mL magnesium hydroxide (MILK OF MAGNESIA) 4 00 MG/5ML suspension 30 mL 08/28/2019 12:07:03 PM EST 30 mL Oral active 30 mL, Oral, Nightly PRN, Constipation, Starting Wed08/28/19 at 1207, For 30 days
If serum creatinine > 2 notify provider before administering.
[facility] Medication administered onsite Acetaminophen 325 [...] mg from all sources in 24 hours.
[facility] Medication administered onsite Oxycodone Hydrochloride 5 MG Oral Tablet oxyCODONE (ROXICODONE) immediate release tablet 5 mg oxyCODONE (ROXICODONE) immediate release tablet 5 mg 08/28/2019 12:07:03 PM EST 5 mg Oral active 5 mg, Oral, Every 4 hours PRN, Moderate Pain (Pain Scale Score 4-6), Starting Wed08/28/19 at 1207, For 3 days
If no BUSINESS LAWYER or when BUSINESS LAWYER has been DC.
Oxycodone immediate release is limited to 10 mg per dose. Higher doses ( only) require Pain Service consultation and approval.
[facility] Medication administered onsite Oxycodone Hydrochloride 5 MG Oral Tablet oxyCODONE (ROXICODONE) immediate release tablet 10 mg oxyCODONE (ROXICODONE) immediate release tablet 10 mg 08/28/2019 12:07:03 PM EST 10 mg Oral active 10 mg, Oral, Every 4 hours PRN, Severe Pain (Pain Scale Score 7-10), or pre-painful procedure or activity, Starting Wed08/28/19 at 1207, For 3 days
If no BUSINESS LAWYER or when BUSINESS LAWYER has been DC.
Oxycodone immediate release is limited to 10 mg per dose. Higher doses ( only) require Pain Service consultation and approval.
[facility] Medication administered onsite fentaNYL (SUBLIMAZE) (PF) injection 25 mcg [id number] 08/28/2019 12:07:03 PM EST 25 ug Intravenous active 25 m cg, Intravenous, Every 2 hours PRN, breakthrough pain, Starting Wed08/28/19 at 1207, For 3 days [facility] Medication administered onsite metaxalone 800 MG Oral Tablet metaxalone (SKELAXIN) ta blet 800 mg metaxalone (SKELAXIN) tablet 800 mg 08/28/2019 12:07:03 PM EST 800 mg Oral active 800 mg, Oral, Three Times Daily-PRN, Mu scle spasms, Starting Wed08/28/19 at 1207, For 30 days [facility] Medication administered onsite ondansetron (ZOFRAN) injection 4 mg [id number] 08/28/2019 12:07:0 3 PM EST 4 mg Intravenous active 4 mg, In travenous, Every 6 hours PRN, Nausea, Vomiting, Starting Wed08/28/19 at 1207, For 30 days [facility] Medication administered onsite POLYETHYLENE GLYCOL [...] due to potential increased risk for aspiration.
[facility] Medication administered onsite sodium phosphate 67.8 MG/ML / Sodium Kenan sphate, Monobasic 185 MG/ML Enema sodium phosphate (FLEET) enema (ADULT) 133 mL sodium phosphate (FLEET) enema (ADULT) 133 mL 08/28/2019 12:07:03 PM EST 133 mL Rectal active 133 mL, Rectal, Daily PRN, Constipation, Starting Wed08/28/19 at 1207, For 30 days [facility] Medication administered onsite NaCl infusion 0.9 % [id number] 08/28/2019 11:45:00 AM EST Intravenous active at 100 mL/hr, Intrav enous, Continuous, Starting Wed08/28/19 at 1145, For 30 days [facility] Medication administered onsite fentaNYL (SUBLIMAZE) (PF) injection 50 mcg [id number] 08/28/2019 11:19:53 AM EST 50 ug Intravenous aborted 50 m cg, Intravenous, Every 5 min PRN, Moderate Pain (Pain Scale Score 4-6), Starting Wed08/28/19 at 1119, For 4 doses, Recovery [facility] Medication administered onsite Calcium Chloride 0.0014 MEQ/ML / Potassi um Chloride 0.004 MEQ/ML / Sodium Chloride 0.103 MEQ/ML / Sodium Lactate 0.028 MEQ/ML Injectable Solution lactated ringers infusion lactated ringers infusion 08/28/2019 06:15:00 AM EST Intravenous aborted at 100 mL/hr, Intravenous, Continuous, Starting Wed08/28/19 at 0615, For 30 days
Keep Vein Open. Use Wide Tubing.
Pre-op [facility] Medication administered onsite gabapentin 100 MG Oral Capsule gabapentin (NEURONTIN) capsule 200 mg gabapentin (NEURONTIN) capsule 200 mg 08/28/2019 06:15:00 AM EST 200 mg Oral completed 200 mg, Oral, Once, Wed08/28/19 at 0615, For 1 dose, Pre-op [facility] Medication administered onsite bupivacaine (MARCAINE) 0.25 % 20 mL, morphine sulfate (PF) 1 0 mg syringe 08/28/2019 06:15:00 AM EST Infiltration complete d Infiltration, Once, Wed08/28/19 at 0615, For 1 dose, Pre-op [facility] Medication administered onsite Acetaminophen 325 MG Oral Tablet acetaminophen (TYLENO L) tablet 975 mg acetaminophen (TYLENOL) tablet 975 mg 08/28/2019 06:15:00 AM EST 97 5 mg Oral completed 975 mg, Oral, O nce, Wed08/28/19 at 0615, For 1 dose, Pre- op
Maximum daily dose of acetaminophen is 3,000 mg from all sources in 24 hours.
[facility] Medication administered onsite celecoxib 100 MG Oral Capsule celecoxib (CELEBREX) cap ledy 100 mg celecoxib (CELEBREX) capsule 100 mg 08/28/2019 06:15:00 AM EST 100 mg Oral completed 100 mg, Oral, Once, Wed08/28/19 at 0615, For 1 dose, Pre-op [facility] Medication administered onsite Aspirin 81 MG Oral Tablet Aspirin 81 MG Oral Tablet 81 mg Oral aborted Take 81 mg by mouth daily [facility] Insurance Providers Payer name Policy type / Coverage type Policy ID Covered democrat ID Covered democrat's relationship to delgado Policy Delgado Plan Information MEDICARE COMPLETE [id number] SP [id number] MEDICARE COMPLETE-[facility] O [id number] S [id number] [facility] MEDICARE COMPLETE G [id number] Self [id number] [facility] MEDICARE COMPLETE G [id number] Self [id number] [facility] ([facility]) Commercial [id number] Self [id number] [employer] Commercial [id number] Self [id number] [employer] Commercial [id number] Self [id number] [facility] Medicare Solutions Medigap Part B [id number] Self [id number] [employer] Commercial [id number] Self [id number] [employer] Commercial [id number] Self [id number] MEDICARE COMPLETE [id number] SP [id number] MEDICARE COMPLETE [id number] SP [id number] MEDICARE COMPLETE [id number] SP [id number] [place] [place] [id number] SP [id number] [facility] Commercial [id number] Self [id number] MEDICARE COMPLETE-UHC O [id number] S [id number] [place] [facility] Commercial [id number] Self [id number] [place] [facility] Commercial [id number] Self [id number] MEDICARE COMPLETE [id number] SP [id number] [facility]) Commercial [id number] Self [id number] [facility] Medicare Solutions Medigap Part B [id number] Self [id number] [employer] Commercial [id number] Self [id number] [employer] Commercial [id number] Self [id number] [facility] Medicare Solutions Medigap Part B [id number] Self [id number] [employer] Commercial [id number] Self [id number] [employer] Commercial [id number] Self [id number] MEDICARE COMPLETE-UHC O UNAVAILABLE S UNAVAILABLE [facility] Medicare Solutions Medigap Part B [id number] Self [id number] [employer] Commercial [id number] Self [id number] [employer] Commercial [id number] Self [id number] [employer] Commercial [id number] Self [id number] [employer] [place] [id number] SP [id number] [place] PPO 302/307 [id number] SP [id number] [place] PPO 302/307 [id number] SP [id number] BCBS [employer] P[employer] U/W Medigap Part [id number] Family Dependent [id number] [place] [employer] Ppo Commercial [id number] Family Dep endent [id number] [facility] Commercial [id number] Self [id number] [place] PPO 302/307 [id number] SP [id number] [facility] Commercial Self BCBS OF [place] 332/834 [id number] SP [id number] Problems, Conditions, and Diagnoses Code Display Name Description Problem Type Effective Dates Data Source(s) J45.909 Unspecified asthma, uncomplicated Unspecified as thma, uncomplicated Problem 08/30/2019 12:00:00 AM EST NETSMART ([facility]) Z91.81 History of falling History of falling Problem 0 12:00:00 AM EST NETSMART ([facility]) Z79.82 long term care social worker (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) M15.0 Primary generalized (osteo)arthritis Primary gen eralized (osteo)arthritis Problem 08/09/2019 12:00:00 AM EST NETSMART ([facility]) Z47.1 Aftercare following joint replacement sales rgery Aftercare following joint replacement surgery Problem 08/09/2019 12:00:00 AM EST NETSMART ([facility]) Z96.641 Presence of right artificial hip joint P resence of right artificial hip joint Diagnosis 04/03/2020 09:08:49 AM EDT [facility] M16.11 Unilateral primary osteoarthritis, right hip Unilateral primary osteoarthritis, right hip Diagnosis 08/28/2019 11:35:36 AM EST [facility] M16.9 Osteoarthritis of hip, unspecified Osteoarthriti s of hip, unspecified Diagnosis 08/28/2019 05:40:00 AM [facility] OA (osteoarthritis) of hip OA (osteoarthritis) of hip Diagnosis 08/28/2019 05:40:00 AM [facility] Primary osteoarthritis of right hip [M16 .11] Primary osteoarthritis of right hip [M16.11] Diagnosis 08/28/2019 05:40:00 AM [facility] Surgeries/Procedures Procedure Description Date Indications Data Source(s) Electrocardiogram Complete 09/04/2019 12:00:00 AM [facility] ([facility]) POCT GLUCOSE, DOCKED POCT GLUCOSE, DOCKED Routine 08/30/2019 11:49 AM EST 08/30/2019 04:49:00 PM [facility] POCT GLUCOSE, DOCKED POCT GLUCOSE, DOCKED Routine 08/30/2019 8:01 AM EST 08/30/2019 01:01:00 PM [facility] BLOOD COUNT COMPLETE AUTOMATED CBC Routine 08/30/2019 5:01 A M EST 08/30/2019 10:01:00 AM [facility] GLUCOSE QUANTITATIVE BLOOD XCPT REAGENT STRIP POCT GLUCOSE, DOC KED Routine 08/29/2019 9:41 PM EST 08/30/2019 02:41:00 AM [facility] GLUCOSE QUANTITATIVE BLOOD XCPT REAGENT STRIP POCT GLUCOSE, DOC KED Routine 08/29/2019 4:37 PM EST 08/29/2019 09:37:00 PM [facility] GLUCOSE QUANTITATIVE BLOOD XCPT REAGENT STRIP POCT GLUCOSE, DOC KED Routine 08/29/2019 12:21 PM EST 08/29/2019 05:21:00 PM [facility] GLUCOSE QUANTITATIVE BLOOD XCPT REAGENT STRIP POCT GLUCOSE, DOC KED Routine 08/29/2019 8:35 AM EST 08/29/2019 01:35:00 PM [facility] HEPATITIS C ANTIBODY HEPATITIS C ANTIBODY Routine 08/29/2019 5:45 AM EST 08/29/2019 10:45:00 AM [facility] BLOOD COUNT COMPLETE AUTOMATED CBC Routine 08/29/2019 5:45 A M EST 08/29/2019 10:45:00 AM [facility] BASIC METABOLIC PANEL CALCIUM TOTAL BASIC METABOLIC PANEL Routi ne 08/29/2019 5:45 AM EST 08/29/2019 10:45:00 AM [facility] GLUCOSE QUANTITATIVE BLOOD XCPT REAGENT STRIP POCT GLUCOSE, DOC HARLEEN Routine 08/28/2019 9:04 PM EST 08/29/2019 02:04:00 AM [facility] GLUCOSE QUANTITATIVE BLOOD XCPT REAGENT STRIP POCT GLUCOSE, LOGAN CANSECO Routine 08/28/2019 4:56 PM EST 08/28/2019 09:56:00 PM [facility] GLUCOSE QUANTITATIVE BLOOD XCPT REAGENT STRIP POCT GLUCOSE, LOGAN CANSECO Routine 08/28/2019 12:21 PM EST 08/28/2019 05:21:00 PM [facility] RADIOLOGIC EXAMINATION PELVIS 1/2 VIEWS XR PELVIS 1-2 VIEWS 721 70 Routine 08/28/2019 11:53 AM EST 08/28/2019 04:53:10 PM [facility] LEVEL I SURG PATHOLOGY GROSS EXAMINATION ONLY SURGICA L PATHOLOGY EXAM ([facility] ONLY) Routine 08/28/2019 11:10 AM EST 08/28/2019 04:10:00 PM [facility] [id number] ARTHROPLASTY, ACETABULAR/PROXIMAL FEMORAL PROSTHETIC REPLACEMENT, W/WO AUTOGRAFT/ALLOGRAFT [id number] ARTHROPLASTY, ACETABULAR/PROXIMAL FEMORAL PROSTHETIC REPLACEMENT, W/WO AUTOGRAFT/ALLOGRAFT 08/28/2019 9:27 AM ES [facility] Primary osteoarthritis of right hip 08/28/2019 02:27:0 0 PM EST - 08/28/2019 04:58:00 PM EST Primary osteoarthritis of right hip [facility] Primary osteoarthritis of right hip US GUIDED PERIPHERAL NERVE BLOCK (OR ONLY) US GUIDED PERIPHERAL NERVE BLOCK (OR ONLY) Routine 08/28/2019 7:38 AM EST 08/28/2019 12:38 :00 PM [facility] GLUCOSE QUANTITATIVE BLOOD XCPT REAGENT STRIP POCT GLUCOSE, LOGAN CANSECO Routine 08/28/2019 6:55 AM EST 08/28/2019 11:55:00 AM [facility] BLOOD TYPING ABO TYPE AND SCREEN Routine 08/07/2019 11:46 AM EST Preop examination 08/07/2019 04:46:00 PM EST Preop examination [facility] Preop examination Electrocardiogram Complete 07/31/2019 12:00:00 AM EST [facility] ([facility]) Results ID Date Data Source [id number] 09/11/2020 12:00:00 AM EST [facility] ology Imaging Rosie Lucas Bond DO Patient Name: VINAY [id number] Date of : 1950 1 Date of Exam: 09/11/2020[facility] [id number]#: Fax: [phone] EXAM: CT ANGIOGRAPHY, CHESTCLINICAL INFORMATION: [...] Other findings as described above.Accredited by the [employer] in [place].KOFFI Mckenna/Nohelia you for referring KEY SANZ to our office. Electronically Signed - DENISE JOLLY DO 09/11/20 17:26 Name Value Range Interpretation Code Description Data Sherron rce(s) Supporting Document(s) ID Date Data Source [id number] 09/09/2020 09:00:00 AM EST [facility] ([facility]) Name Value Range Interpretation Code Description Data Sherron rce(s) Supporting Document(s) Fibrin D-dimer FEU [Mass/volume] in Platelet poor plasma 519.01 ng/mL Above high normal [facility] ([facility]) ID Date Data Source [id number] 09/09/2020 09:00:00 AM EST [facility] ([facility]) Name Value Range Interpretation Code Description Data Sherron rce(s) Supporting Document(s) HDL Cholesterol 68 mg/dL Normal (applies to non-numeric results) [facility] ([facility]) Triglycerides Level 68 mg/dL Normal (applies to non-nume patricia results) [facility] ([facility]) Cholesterol Level 307 mg/dL Above high normal [facility] ([facility]) LDL Cholesterol 225 mg/dL Above high normal [facility] ([facility]) Non-HDL-C 239 mg/dL Normal (applies to non-numeric resul ts) [facility] ([facility]) Cholesterol Risk Ratio 4.514 Normal (applies to non-n umeric results) [facility]) ID Date Data Source [id number] 09/09/2020 09:00:00 AM EST [facility] ([facility]) Name Value Range Interpretation Code Description Data Sherron rce(s) Supporting Document(s) Estimated Average Glucose 108 mg/dL 60-110 Normal (applies to non-numeric results) [facility] ([facility]) Hemoglobin A1c 5.4 % Normal (applies to non-numeric r esults) [facility] ([facility]) <content>REFERENCE RANGES:</content><br/ ><content></content>
<content><=5.6% NORMAL</content>
<content>5.7-6.4% SUGGESTS IMPAIRED GLUCOSE METABOLISM/PREDIABETIC</content>
<content>>= 6.5% ABNORMAL</content>
<content></content> ID Date Data Source [id number] 09/09/2020 09:00:00 AM EST [facility] ([facility]) Name Value Range Interpretation Code Description Data Sherron rce(s) Supporting Document(s) Creatinine For GFR 0.83 mg/dL 0.55-1.30 Normal (applies to non -numeric results) [facility] ([facility]) Glucose, Fasting 110 mg/dL 70-100 Above high normal [facility] ([facility]) Blood Urea Nitrogen 16 mg/dL 7-18 Normal (applies to non-nume patricia results) [facility] ([facility]) Sodium Level 139 meq/L 136-145 Normal (applies to non-numeric res ults) [facility] ([facility]) Potassium Serum 4.9 meq/L 3.5-5.1 Normal (applies to non-numeric results) [facility] ([facility]) Glomerular Filtration Rate Laboratory test result Normal (applies to non- numeric results) [facility] ([facility]) <content>Units are mL/min/1.73 m2</content>
<content></content>
<content>Chronic Kidney Disease Staging per NKF:</content>
<content></content>
<content>Stage I & II GFR >=60 Normal to Mildly Decreased</content>
<content>Stage III GFR 30- 59 Moderately Decreased</content>
<content>Stage IV GFR 15-29 Severely Decreased</content>
<content>Stage V GFR <15 Very Little GFR Left</content>
<content>ESRD GFR <15 on CERAMICS TEST ENGINEER</content>
<content></content> Chloride Level 105 meq/L 98-107 Normal (applies to non-numeric r esults) [facility] ([facility]) Carbon Dioxide Level 30 meq/L 21-32 Normal (applies to non-num davonte results) [facility] ([facility]) Calcium Level 10.0 mg/dL 8.8-10.2 Normal (applies to non-numeric re sults) [facility] ([facility]) Anion Gap 4 meq/L 8-16 Below low [facility] Ast/Sgot 5 U/L 7-37 Below low normal [facility] Alkaline Phosphatase 39 U/L 45-117 Below low normal [facility] Alt/SGPT 16 U/L 12-78 Normal (applies to non-numeric resul ts) [facility] ([facility]) Bilirubin,Total 0.5 mg/dL 0.2-1.0 Normal (applies to non-numeric results) [facility] ([facility]) Total Protein 6.7 GM/DL 6.4-8.2 Normal (applies to non-numeric re sults) [facility] ([facility]) Albumin 3.8 GM/DL 3.2-5.2 Normal (applies to non-numeric resul ts) [facility] ([facility]) Albumin/Globulin Ratio 1.3 1.2-2.2 Normal (applies to non-n umeric results) [facility] ([facility]) ID Date Data Source [id number] 09/09/2020 09:00:00 AM EST [facility] ([facility]) Name Value Range Interpretation Code Description Data Sherron rce(s) Supporting Document(s) Thyroid Stimulating Hormone 0.387 uIU/ML 0.358-3.740 Norm al (applies to non- numeric results) [facility] ([facility]) Free T4 1.46 ng/dL 0.76-1.46 Normal (applies to non-numeric resul ts) [facility] ([facility]) ID Date Data Source [id number] 09/09/2020 09:00:00 AM EST [facility] ([facility]) Name Value Range Interpretation Code Description Data Sherron rce(s) Supporting Document(s) Calcidiol [Mass/volume] in Serum or Plasma 67.0 ng/mL 30.0- 100.0 Normal (applies to non-numeric results) [facility] ([facility]) ID Date Data Source [id number] 09/09/2020 09:00:00 AM EST [facility] ([facility]) Name Value Range Interpretation Code Description Data Sherron rce(s) Supporting Document(s) White Blood Count 4.8 10 4.0-10.0 Normal (applies to non-numeri c results) [facility] ([facility]) Hemoglobin 13.8 g/dL 12.0-15.5 Normal (applies to non-numeric resul ts) [facility] ([facility]) Red Blood Count 4.51 10 4.00-5.40 Normal (applies to non-numeric results) [facility] ([facility]) Mean Corpuscular Hemoglobin 30.6 pg 27.0-33.0 Norm al (applies to non-numeric results) [facility] ([facility]) Hematocrit 41.8 % 36.0-47.0 Normal (applies to non-numeric resul ts) [facility] ([facility]) Mean Corpuscular Volume 92.7 fl 80.0-96.0 Normal ( applies to non-numeric results) [facility] ([facility]) Red Cell Distribution Width 14.5 % 11.5-14.5 Norm al (applies to non-numeric results) [facility] ([facility]) Platelet Count, Automated 256 10 150-450 Normal (applies to non-numeric results) [facility] ([facility]) Mean Corpuscular HGB Conc 33.0 g/dL 32.0-36.5 Normal (applies to non-numeric results) [facility] ([facility]) Lymph % 32.6 % 24.0-44.0 Normal (applies to non-numeric resul ts) [facility] ([facility]) Neutrophils % 54.2 % 36.0-66.0 Normal (applies to non-numeric re sults) [facility] ([facility]) Harper % 8.9 % 0.0-5.0 Above high normal [facility] ([facility]) Eos % 3.1 % 0.0-3.0 Above high normal [facility] ([facility]) Immature Granulocyte % 0.2 % 0-3.0 Normal (applies to non-n umeric results) [facility] ([facility]) Baso % 1.0 % 0.0-1.0 Normal (applies to non-numeric resul ts) [facility] ([facility]) Lymph # 1.6 10 1.5-5.0 Normal (applies to non-numeric resul ts) [facility] ([facility]) Nucleated Red Blood Cell % 0.0 % 0-0 Normal (applies to n on-numeric results) [facility] ([facility]) Neutrophils # 2.6 10 1.5-8.5 Normal (applies to non-numeric re sults) [facility] ([facility]) Eos # 0.2 10 0.0-0.5 Normal (applies to non-numeric resul ts) [facility] ([facility]) Baso # 0.1 10 0.0-0.2 Normal (applies to non-numeric resul ts) [facility] ([facility]) Harper # 0.4 10 0.0-0.8 Normal (applies to non-numeric resul ts) [facility] ([facility]) ID Date Data Source [id number] 08/20/2020 02:36:00 PM EST [facility] ([facility]) Name Value Range Interpretation Code Description Data Sherron rce(s) Supporting Document(s) Respiratory Panel Laboratory test result [facility] ([facility]) This respiratory PCR panel detects Influ patria [...] SARS-CoV-2 (COVID 19) ID Date Data Source [id number] 08/20/2020 02:36:00 PM EST [facility] Name Value Range Interpretation Code Description Data [facility] rce(s) Supporting Document(s) Respiratory pathogens identified [Type] in Nasopharynx by Probe and target amplification method SARS-CoV-2 (COVID 19) [facility] [place] This lab was ordered by [facility] a nd reported by [facility]. ID Date Data Source [id number] 04/04/2020 07:18:57 AM EDT [facility] XR HIP- UNILAT, 2-3 VIEWS [id number] RE SULTInterpreted by:SCOUT WrightVIS AND RIGHT HIPCLINICAL [...] rce(s) Supporting Document(s) ID Date Data Source [id number] 04/03/2020 10:05:57 AM EDT [facility] Name Value Range Interpretation Code Description Data Sherron rce(s) Supporting Document(s) Progress Note [facility] HGNBSg4oUxPXYvXa30/CWCqfAMMjq0UmROtoUMw2UVzhIOHfE4DuQIS3xV6cPWZ0CEyXHiFuWqHqSQP1 lbm [file] DQogICAgICAgICAgICAgICAgICAgICAgICAgICAgICAgICAgICAgICAgICAgICAgICAgICAgICAgICAg ICAgICAgICAgICAgICAgICAgICAgICAgICAgICAgIC AgICAgICAgICAgDQogICAgICAgICAgICAgICAgICAgICAgICAgICAgICAgICAgICAgICAgICAgICAgIC AgICAgICAgICAgICAgICAgICAgICAgICAgICAgICAgICAgICAgICAgICAgICAgICAgICAgDQogICAgIC AgICAgICAgICAgICAgICAgICAgICAgICAgICAgICAg ICAgICAgICAgICAgICAgICAgICAgICAgICAgICAgICAgICAgICAgICAgICAgICAgICAgICAgICAgICAg ICAgDQogICAgICAgICAgICAgICAgICAgICAgICAgICAgICAgICAgICAgICAgICAgICAgICAgICAgICAg ICAgICAgICAgICAgICAgICAgICAgICAgICAgICAgIC AgICAgICAgICAgICAgDQogICAgICAgICAgICAgICAgICAgICAgICAgICAgICAgICAgICAgICAgICAgIC AgICAgICAgICAgICAgICAgICAgICAgICAgICAgICAgICAgICAgICAgICAgICAgICAgICAgICAgDQogIC AgICAgICAgICAgICAgICAgICAgICAgICAgICAgICAg ICAgICAgICAgICAgICAgICAgICAgICAgICAgICAgICAgICAgICAgICAgICAgICAgICAgICAgICAgICAg ICAgICAgDQogICAgICAgICAgICAgICAgICAgICAgICAgICAgICAgICAgICAgICAgICAgICAgICAgICAg ICAgICAgICAgICAgICAgICAgICAgICAgICAgICAgIC AgICAgICAgICAgICAgICAgDQogICAgICAgICAgICAgICAgICAgICAgICAgICAgICAgICAgICAgICAgIC AgICAgICAgICAgICAgICAgICAgICAgICAgICAgICAgICAgICAgICAgICAgICAgICAgICAgICAgICAgDQ ogICAgICAgICAgICAgICAgICAgICAgICAgICAgICAg ICAgICAgICAgICAgICAgICAgICAgICAgICAgICAgICAgICAgICAgICAgICAgICAgICAgICAgICAgICAg ICAgICAgICAgDQogICAgICAgICAgICAgICAgICAgICAgICAgICAgICAgICAgICAgICAgICAgICAgICAg ICAgICAgICAgICAgICAgICAgICAgICAgICAgICAgIC YcCMQkRHYcOHDgNLTsEDNdWHNtVNm4N4xlTQLgYYGkXL7aJRx0Ps3+GSsGViSnPHZ1jbSvjX5QJX5wk8 PhYHcaZKXqx7BfANw6DL1BBLPcJEeiXY0PYUttvv5UAQTtXLGmvYYDp6shVbEkFFE7HVWvDpvdVK1EDO EdT4pdgvCcZNAhGNZPUTdwVFSGZA8YFyGqP2XkrY01 IDINCj4+CPbedsVkKxaKXoCuDDRlj3IcJKd0TO6QOZRuMtlcj6DuLUIfIWTLZGtvIB1MDEB2JGSdDWEb Nw5FKZPxK468zlWqCM9UIu5QEbTbUR5rjb1YQMBoCPGiIwrAAgf1WPjhSI6KmNMmEMgFiy7yuvUvxcHA p2RupwKrqBVFMZ3nPWfwUNX5nEFbSuxiv2kizhbhGN NsSAVuVR2vHQ0aIXRwAGQ7LcYpMXIXPI6BTIJpPTNqePCmGMDlUZLWCJ2MWRnjFWT9CDYiabXgdGOeYU ceJB1TOMIvyuHySWBrRKATLPg+Mz5OYC0hd2FbYVi6PdMgDO6ped9PTAbRZxHjX8B7wZMnO9E2TNayLo 7CQMKlXSPsAkrqCXKNSXvtXL8HOP4omaJ8RP6RmETi ATCvZFYhpDAeIFl3S25jeJEwUGgaZU0WCYS+Marcia+He9VHGFjHLTzHOZkDfXcHAMSWmAuK7CjS8RCo4Ln M6FcNA87mWkhvjVdVNidIX1TZN2mDPWeHOMDUI7NdRJamZ3rvlH0BAZlXANEFwYiP83vuJIxTJTiNCV8 LXWuVj1UACGpI7AovwJvbAypsfRgBAGwNZXOBR5IID sdqbVubIZnzMjiMG15rEexFX4GDr3RCzLxHU5lbp6FoOQpWp2KTSU0Gl8BYVJgKETfEJUeQAQ4EPDkKs FzLRhxJMVtIUGdEUQ2LTRqFRIgEK4HZhEvAEKrSCy3XRZcRMZlFOMnvf8KIPJzFED5SDRfHSPlUYDzJC LtFZuoFMNyPKWfJVG3RLAnHPDfAO4AGiQtOVCnFHH3 XPHoVMMhGGIwgj4FWBJcFMPwRXI5VDFyUAVbPTUsRGmqFILdZGA5Yno5YRLaNSRkZY5QVsCzCWRcXZV8 BIHiEDQuSLDgrg3TLNTgQNHzNUg5VFDeJJKkVJWjIWueOQGoOQN6QOW3AKFkVMHuNR2TIfYlSJYbHDXa OftjICJoGQNigu8PRQUiWEGqNyZ7KbLwRNJaATPqCA reXNUnSWN5Gje8GTHsLTQdOC6SCfNmBKXrGEb9QRGrSBEhEWFcpe1XCEIgZSIpCJz6LMFlMTNiBAYiAV grSMJrMGT0ZcE4GQBvNAJyXI5JQkFwGKIxNEj9BbYpNPZmKXFmxy1AGFPuTWHmJFnlHvQgPQJoRNZsLW zfEQBaZJH8KAVaKPCpGXFtVH9WCtKeEXAcDxQ1IRMz KLPkSZGzpi6HAUWeLQVoUKo9GVXpRQSuTFXmLVheMHJpLRTvNBP7JSExGTQwKP8VOsJaQCOqXfSkTRKp FEGoJVPuxo1OCUDuPZYwKzA6UuRqMRLiWXOoFBdhMKBpVTJlIBRcZGLqDWCfKP2ZNrBbPIXcAOG3AOif TTRsERGvav7AMNDbZDY3HJGtHGTdBEGkDXBkIGpxCR TgTWJeJYHmHDHeRAIwRR1BKuIgZSMeBES3URPjVVXaWTGmjy6FXIOmLCV5JXe3IGPcGSZrDTSiLPboGM JaMKN5NKH9RQJbVUCwQA3ONwHuSPBoRRmmZmGxNXJdWSNqmo9APAYvOUU0XrG2TbNmCPMhRIWyHLqdTL CzXZY9IdW8GOJkGLKsFZ3ZWiLfGZSsOYq6NJQdXKVd RUOnxu0VFLCgKEL1FRGiKaEpJQSsQTWiIZmuLHJwUBX0MgEiHJZvTWLuQJ2XOuAcXNNrVHcdQAqlSVFg WBScvq7DEYIoMCK2ZVb9NVEmOWEuYMLdHInoRXVyENQxWoV9DIZkMMCjCX3GLlMgRUBtSVQwQVDvPGQr LRVsrv6BKLPwBOV6ISM6WATfGAOtBBZxZWd5bfIzuN KkCZw5IW8VJ2OwnjAbRNMTUt0Lq078NWVmDXHfWr9AX5uoJl8dWTTmUYJUZh9MHQi6SBDvIgRfAIA5If CqAxGtHcQcJjN0McIxVVmuHxToFLT+LBg8SYMaVZCeRaZ7IwSgZhR7MBBkMVbhAMCyKwVwKtDvBg4gOR ANCj4+CRsqaADvoNhuOUONNuOkIeo8YPmxNUQTJy0B ID Date Data Source [id number] 01/31/2020 08:52:00 AM EDT [facility] ([facility]) Name Value Range Interpretation Code Description Data Sherron rce(s) Supporting Document(s) Thyroid Stimulating Hormone 0.573 uIU/ML 0.358-3.740 Norm al (applies to non- numeric results) [facility] ([facility]) Free T4 1.20 ng/dL 0.76-1.46 Normal (applies to non-numeric resul ts) [facility]) ID Date Data Source [id number] 01/31/2020 08:52:00 AM EDT [facility] ([facility]) Name Value Range Interpretation Code Description Data Sherron rce(s) Supporting Document(s) Calcidiol [Mass/volume] in Serum or Plasma 46.8 ng/mL 30.0- 100.0 Normal (applies to non-numeric results) [facility] ([facility]) ID Date Data Source [id number] 01/31/2020 08:52:00 AM EDT [facility] ([facility]) Name Value Range Interpretation Code Description Data Sherron rce(s) Supporting Document(s) Hemoglobin A1c 6.7 % Normal (applies to non-numeric r esults) [facility] ([facility]) REFERENCE RANGES: 4.5-5.6% NORMAL 5.7-6.4% SUGGESTS IMPAIRED GLUCOSE META BOLISM >= 6.5% ABNORMAL Estimated Average Glucose 146 mg/dL 60-110 Above high normal [facility] ([facility]) ID Date Data Source [id number] 01/31/2020 08:52:00 AM EDT [facility] ([facility]) Name Value Range Interpretation Code Description Data Sherron rce(s) Supporting Document(s) Glucose, Fasting 104 mg/dL 70-100 Above high normal [facility]) Blood Urea Nitrogen 16 mg/dL 7-18 Normal (applies to non-nume patricia results) [facility] ([facility]) Glomerular Filtration Rate Laboratory test result Normal (applies to non- numeric results) [facility] ([facility]) <content>Units are mL/min/1.73 m2</content>
<content></content>
<content>Chronic Kidney Disease Staging per NKF:</content>
<content></content>
<content>Stage I & II GFR >=60 Normal to Mildly Decreased</content>
<content>Stage III GFR 30- 59 Moderately Decreased</content>
<content>Stage IV GFR 15-29 Severely Decreased</content>
<content>Stage V GFR <15 Very Little GFR Left</content>
<content>ESRD GFR <15 on CERAMICS TEST ENGINEER</content>
<content></content> Creatinine For GFR 0.63 mg/dL 0.55-1.30 Normal (applies to non -numeric results) [facility] ([facility]) Sodium Level 139 meq/L 136-145 Normal (applies to non-numeric res ults) [facility] ([facility]) Chloride Level 107 meq/L 98-107 Normal (applies to non-numeric r esults) [facility] ([facility]) Potassium Serum 5.0 meq/L 3.5-5.1 Normal (applies to non-numeric results) [facility] ([facility]) Carbon Dioxide Level 28 meq/L 21-32 Normal (applies to non-num davonte results) [facility] ([facility]) Calcium Level 9.1 mg/dL 8.8-10.2 Normal (applies to non-numeric re sults) [facility] ([facility]) Anion Gap 4 meq/L 8-16 Below low normal [facility] ( [facility]) Ast/Sgot 22 U/L 7-37 Normal (applies to non-numeric resul ts) [facility] ([facility]) Alt/SGPT 29 U/L 12-78 Normal (applies to non-numeric resul ts) [facility] ([facility]) Alkaline Phosphatase 44 U/L 45-117 Below low normal [facility] ([facility]) Bilirubin,Total 0.6 mg/dL 0.2-1.0 Normal (applies to non-numeric results) [facility] ([facility]) Total Protein 6.5 GM/DL 6.4-8.2 Normal (applies to non-numeric re sults) [facility] ([facility]) Albumin/Globulin Ratio 1.3 1.2-2.2 Normal (applies to non-n umeric results) [facility] ([facility]) Albumin 3.7 GM/DL 3.2-5.2 Normal (applies to non-numeric resul ts) [facility] ([facility]) ID Date Data Source [id number] 10/30/2019 10:46:42 PM EDT [facility] Name Value Range Interpretation Code Description Data Sherron rce(s) Supporting Document(s) Progress Note [facility] AZCJSo6uKxLUBvNr28/BWXodURNez4GjQIgaCYv7RXgjAAPaU0GpZPW3mW9pSTH2PHjHDvQnSnQgPfR4 [facility] [file] AgICAgICAgICAgICAgICAgICAgICAgICAgICAgICAgICAgICAgICAgICAgICAgICAgICAgICAgICAgIC RkOYOfPWIcHDMvRALoAYQpJZRbTVGkRUAqOD5KHCAfENItFAIrPBCwNWTcYUGkSRPoKLFfABMtTKBeXP AgICAgICAgICAgICAgICAgICAgICAgICAgICAgICAg MTWlJNNsMDRrFKYgEWHeRNDvXRShGUVrCOVmQGMeZKUlAEVuAP8QWEPgJOArCOHgHKEqHRVpWQXuKUWv ICAgICAgICAgICAgICAgICAgICAgICAgICAgICAgICAgICAgICAgICAgICAgICAgICAgICAgICAgICAg VYUlOTCjFPCvKRMeREWkKQYiQL3MAPRaUQHtPPTwHL AgICAgICAgICAgICAgICAgICAgICAgICAgICAgICAgICAgICAgICAgICAgICAgICAgICAgICAgICAgIC ZdSZAkFEQlVSBkERMlWXBdOMPuBWMuIFTrLGFiGY4TLANsVKCsOPJbOWNoFUImGQInENUmQOQiDHNnAI AgICAgICAgICAgICAgICAgICAgICAgICAgICAgICAg KWQkDBZiEWLiYUAnTNWyGICaLRWrBHIyFWAeMIYhDDWmCZWvWLYgEH2EFAFaYJErWNErSUWjSRMiDQHl ICAgICAgICAgICAgICAgICAgICAgICAgICAgICAgICAgICAgICAgICAgICAgICAgICAgICAgICAgICAg JSSvYIDuQJWeAUSqJGGbKVGvQPLyOE7UINXlEIHwEU AgICAgICAgICAgICAgICAgICAgICAgICAgICAgICAgICAgICAgICAgICAgICAgICAgICAgICAgICAgIC QaLIBlIRMhDPEmGRSnNFFsSSKvLXHxLBVhSSXxSGVvIM4YBUFvIKZcSIPvMJIdDOTeCPWfOZQvHSCgTN AgICAgICAgICAgICAgICAgICAgICAgICAgICAgICAg ZCDnZOKiKGGqVCPwITIaZUXaTEJzWPOqQRNnBDAtZWGmXWMaITWvLWFzNU9YOTVuGWFlURMcMRKiQQCr ICAgICAgICAgICAgICAgICAgICAgICAgICAgICAgICAgICAgICAgICAgICAgICAgICAgICAgICAgICAg EUXoPKFySSIgYSBaQALbWKZfRWDlEHPiEO8HFRMqJL AgICAgICAgICAgICAgICAgICAgICAgICAgICAgICAgICAgICAgICAgICAgICAgICAgICAgICAgICAgIC PsGUCuQZLnLKSpVUIxTNDhGAQzYOOtAFHnTXYeKQDnQFMzKB5KHH87cYFzt0O2GVLmBU2slir/Pg0KDQ rzoxUazAVrQF8GSeTrAL1fco6ZVbBoZP5qxz9ITWwI BrWyI9Q7cHKhUPNsZJWFVzApH09wDOmsBe61OAerXIVaKiTkHSd1Gw3XBiDeK2kqJGZpKyN4VVOkMvPd FLpfKL7Un2IuyHYmUPe+Xe6QTV1yi4LtDIcyVSNmIM6ups3RXXvMScPsH1FcdfW1MNZlGHUlCo0ISPBq CFGagHJqRECgNTDCEiGfW9HnlV65MKMNYf2+DQplbm GkUxoCWdQuFSMaf2OdNMc0ZV7MZJDgFCd5nPThMXZjO6Pgm9KbGo32ZOVoUxsjNnHwgwTgnO9qMdWTfS GuVG9NRMR5AQHnOq0bISYxHHZcLnL6PTJYTU4LTLPuCCUvvNKiQYEdOCVDVS8JXWvwQWR1NLAdfdBvrI FrBPioWS7TRJLqjyCeMOvwSUGUHUa+Jf9BGV7xj6Jy HOvkCFJvWV1sns8XLQgRAcIlW3S7qGKxF8Q7TUsiRd0LJSUmPYHxHKokRWTTWQrsSY7IUW4jwmJ7DC6X xVPeFQYpKDYjbDGbMWl8H26jmKOqAYtxKA8HJHY+Marcia+Ml4UVTTcDVWxJVUxAwEbZOVPAhAaN8QyN1JG h3WvK2ZpRG53sLupmrRyOHasKQ2MSJ4sSRDdIKFHUK 5ZbNWpaC1fytFzWODjNRBQXeJxS70aoDTaXHXlFBG4MNNrRx1FRVWzK3HtqwFztGbefgVcVJBeDHVMDL 4YPIeustCsgJRsjBmxUM26nJbvGI2JTd7VQlDnNN5acv1OaEVzIu8UAQBhIo1MZLHgNGSbEIUlILJ6VW EbPxHtCUrgDCVpIDPyPHA8ZKFoCJBpLM8MHgDiBJYo VNn6VqYtSLXjVCAzmf8WWJOfRNGsMVP6MuKxHXAmVBRzFFsrOFBfXFQhLFB8RWEeCEQqMS5EQgNuQWLk EEO8BQQqJMTwKTMlbr3YHWCkHHGjUiqnSOCpVCBbXMGzZRujIAAwFIP1IYYySPVmBEGcDL8LEsMaVHKq FCVdKPadMKTmHLOzjm1JSBQeVIAsQCPxOIMeAPCfCS BkXOwkSUSjCIJ4AMr3FPAmXAXnCZ2QBgUtXQQnSTZsURasDWImVDSbty9MSAEyXVQaYmJ3LqHaFFMdOD PwHHcuLNObHUB9SVDaYSCcAJRfKZ3KLxTcKWNxOGifBVyeWRRzFECobq3CJWYyPJQlNKZ9NwDmNSXdPJ CuNWovNRCtPGB5BvJ9OSZvPRJiMI8HKaXrCNIhBSs3 GHSaRXWeCIFzmg8WKAQoHIFrIZJ8GtQxUSXcACEcDDpuYLZsYXEgJzanSQJgJSFiSN0MDbCuTEUpNaK9 RlRvUKNxIAYysb2WDJLcPDGjBKmgUYRpELGhZSEcIHc9ksNrgJMaYGc3EY5XL7OhkiOpVpZAZp0Is869 XVJsHSDbOk4MB6ygDw5mMRFzJOHURy9WUAn7MxQsWU QbLFTlHSHjVHFzIYUhW3DwPPAfLJViIcl8HwX+XWniYREiPoU2KJSbKdGqSWQfFAWdHWBlLwO4KEQqYv JcUW8iDNBGGe2+PSdatKKrpUwuXXZSSrMsPPSzKDufDFXBPm0E ID Date Data Source [id number] 10/19/2019 07:49:27 AM EST [facility] XR HIP- UNILAT, 2-3 VIEWS 11639VDDMP RE SULTInterpreted by:RACHEL Rodríguezelvis and right hip:INDICATION: [...] rce(s) Supporting Document(s) ID Date Data Source [id number] 10/09/2019 09:51:14 PM EST [facility] Name Value Range Interpretation Code Description Data Sherron rce(s) Supporting Document(s) Progress Note [facility] LQBPNp1aYuQIAjDx35/REYwbSGFpo1WaCZnyJHk9IOoxFUDtK1HrMFH6dJ0aLKK9TIaHMpBoVxZjEmU5 lbm [file] ICAgICAgICAgICAgICAgICAgICAgICAgICAgICAgICAgICAgICAgICAgICAgICAgICAgICAgICAgICAg ICAgICAgICAgICAgICAgDQogICAgICAgICAgICAgICAgICAgICAgICAgICAgICAgICAgICAgICAgICAg ICAgICAgICAgICAgICAgICAgICAgICAgICAgICAgIC AgICAgICAgICAgICAgICAgICAgICAgICAgDQogICAgICAgICAgICAgICAgICAgICAgICAgICAgICAgIC AgICAgICAgICAgICAgICAgICAgICAgICAgICAgICAgICAgICAgICAgICAgICAgICAgICAgICAgICAgIC AgICAgICAgDQogICAgICAgICAgICAgICAgICAgICAg ICAgICAgICAgICAgICAgICAgICAgICAgICAgICAgICAgICAgICAgICAgICAgICAgICAgICAgICAgICAg ICAgICAgICAgICAgICAgICAgDQogICAgICAgICAgICAgICAgICAgICAgICAgICAgICAgICAgICAgICAg ICAgICAgICAgICAgICAgICAgICAgICAgICAgICAgIC AgICAgICAgICAgICAgICAgICAgICAgICAgICAgDQogICAgICAgICAgICAgICAgICAgICAgICAgICAgIC AgICAgICAgICAgICAgICAgICAgICAgICAgICAgICAgICAgICAgICAgICAgICAgICAgICAgICAgICAgIC AgICAgICAgICAgDQogICAgICAgICAgICAgICAgICAg ICAgICAgICAgICAgICAgICAgICAgICAgICAgICAgICAgICAgICAgICAgICAgICAgICAgICAgICAgICAg ICAgICAgICAgICAgICAgICAgICAgDQogICAgICAgICAgICAgICAgICAgICAgICAgICAgICAgICAgICAg ICAgICAgICAgICAgICAgICAgICAgICAgICAgICAgIC AgICAgICAgICAgICAgICAgICAgICAgICAgICAgICAgDQogICAgICAgICAgICAgICAgICAgICAgICAgIC AgICAgICAgICAgICAgICAgICAgICAgICAgICAgICAgICAgICAgICAgICAgICAgICAgICAgICAgICAgIC AgICAgICAgICAgICAgDQogICAgICAgICAgICAgICAg ICAgICAgICAgICAgICAgICAgICAgICAgICAgICAgICAgICAgICAgICAgICAgICAgICAgICAgICAgICAg MUCyGSPmJMSlITVbLGTzLHJxRLKdVRKfHBv2X6abSDKsKIGyKR7bKSq8Uq6+VXdGWrUyKJY3laTzcX2J DD5fb0XsZMphIXUxe8YoXRa6AZ3YIIGdCNttCN3MMQ stbz0EHDHlZPTjhPDDe8hlJgSjOIY0HDNvXidsEN4DHMRwQ0hrziOhXMJfLLYTHZ4NTrHiB9GitA33YP ENCj4+TFxoznKaXdiBUdL9VMJkp4LbJZg2OI4PAQFiQhomw0ZcIdXpJRRQEUtoVN4VZOI9NEItFZXwDc 7CKISnG244fzZyOX2ZSh0SRdIaXT1mdk7TIoHzYERs PkbPXdq4VZwtPW6DzDGpDKhNxn1cruEuqlZGh4PgedWaiRJQZSJ5zLR5DJSnVxO5ZENyGB0LROP2TTLc VZ2dKMMmFFTqMmX8QUVDFE4ECPKfUSNfaVJbOTMzSIJXBF2YIMzlXPO3GMBemaRlfBLzYCqnOB1NLVRg bnQgMTkgMCBSDQo+Hx8OJO3wi7ZqDAwiXXSzEE3zba 5XDUlIWwNwW5P4lNCwW5G7NJbiWg4AHLEbVEZpILngTZYMOKoxCY0SQQ8flgK6MP6LoHQuCOYyMQMqsS EnUCl4Y58roZWeGUjmRJ8NVGS+Marcia+Rp2UBNQhLZCzOSFhLwCnZQVIGpBbG5UfY8CTz6HeD5GwDO12tJ jyggCrKLmjHJ8DWF7vAWLfGOLKJU3CvQXxaM6meiHy KSEbVPPCCtYyE66exEReCJCcQMH8ETEpSc6BQEQeJ3KhokQxbVwybyOcCYVoHRFMTQ1YHWcrtqAulIWl wUdyQE80tUwiOO6JGf2CEiRvQY7gld8RdTVnTh5PNQSqZk0LXSZjPEQhTJMjJFX5OOFkQqLnYSvvWYCr QFGzRHM4QBYlZZAzZD0PHwJpEWLxLzT0PzFgQUQeTU Jnjz6EBDWkIWIoUqV4CPHdZMOvZHHpXQxzYVRtZZYtHQL5DACfZLFvQI1LCeVjLSXeFMDyTsMiGXLtKD Ncqc6UBKMxSHFcAaJ0YCVvZJShOSNbHEdlFGZuDOR5YMR9CDCfFYMfMI1DSlFqQHIvFAC0VgCsOVObKV Uszt5EHDXpJFBiSQcjBlSbHNLqLQKvLDjzPTShYNW2 FHrbTQYrXBApGO9HAcDkUJPdENQiIlEcSYSxTMLxca1PTGExPDYtIeN3CAZvWDJzRDHgZWnfVCCkYSU2 XHZ7FILjPZNuSZ4AHpOnBEEyAnQaNjPmJGFcMRFxys3RETVmUBSzNTA8THDkJLRfSVTxRRtvGATqXZTw CsB0NKNxIYEdDW6GGvKhEUDsNjW5DLNbXLQwAPYrdm 2DJUFgMYIjZVTiXPZxXPPpUJWhABeoHKBnKCPlTwG3JQLgQDRbFA7XXuVqVITcTrD6RGsxTVRaLEYzdn 4ZRIDhEXGwFdm4HHQiIPAuHQBqCHs7kgXqoUGjWZu6ES2YC8NgvtFvIlSOEc5Lq051WOYdMXLoNi0FP0 daRl1gZSSqTMTFSm0GWPp1CqvkBcjeTaOtPyu6QOVl Hko8TOHdCpP2NlS0KWHqIRW+BBauNEOeF4JbBVOtMZpqO6GnQNlaPLMbDkyxXkbgRnXqPC9wTMZCCb8+ EPfzaEXcaTioENKKUePtYLFiJTfnJAZORm5R ID Date Data Source [id number] 09/20/2019 05:18:19 PM [facility] XR HIP- UNILAT, 2-3 VIEWS [id number] RE SULTInterpreted by:Tyshawn Graham MDHip unilateral, 2-3 [...] rce(s) Supporting Document(s) ID Date Data Source [id number] 09/07/2019 10:45:25 AM EST [facility] Name Value Range Interpretation Code Description Data Sherron rce(s) Supporting Document(s) Discharge Summary [facility] GHUZIr6bOkHOXmTh43/SBFwnHJPkd3QeJLxvLKx0OVgpJZBuM0HoNLS0rW7sKXT5NPpNOiQoSuDyOLWz lbm OoAalASmGbCDXsQpcAWrItWGfuGkfahXDnPY5TxMM1BNYvX66wFFHcBJRvK1BoDNW5TdH+Ga6DVJKbyN EkLS6ABacN0Jbzb+S5NX0x2Z1WcDYGWBnnURi90B1tmuVj0WGip+2VmVNuAAIJy95uZ4jya95vsP1lVr /XWJ5Brue2tX2Ukt/leXsVt1qc02/sxFWWZbHs3/qn 4tp8wxB//3iuwlyomey2qTpLG0GdSA1sEFaN4kaBuO1M21ojPOq6uL4P08mu2RvSbkw0iAr14z/myePT I1sVo5IiEcBjz52FSlLGbtC746+p1JSeRFbbd1bhxzzl+Cx0P5iQsRJqsYwoiMlkKGnvfyPW/Hrz7Hqa pVCeVXamB1jg1GlUgya9Hto5KtbpCk9DiV6g7M/yFi FA9Cg4LrHh1pLwFaGejmb3t0WupLmcD1xNe5zneuY37KC9fY+OV+O3M2iCtlTRlyqkF1cYo7VXLSbF4g phUTwJqoDZlFDWzaaue3T+mXuOI4Aocv7x/kg4eCRhehV6UBe4SRDaUoCbz/X2nnR2X+xS4kq7YtQjYl j/0fMalx6f6GvmBj3mmJfA5HDcVjIxv/po5JtFtmEZ u70wZSEmnXl0FM2cetUN/ndZX5x1fmt6oC5DZ/hf6zvGweq3s3QloChm+0nLPnYc/9jzHZWu/5fzWWxy 9ccgHxOBkX47XtctD0fjbk7a3NYagm0mUA5st8rbBvhmtHthOruNpuIxnba8tZqKhxOugHVvFGWtdvlx mCZJu23EJXBhaKENQG6cBZYJgB42hBpedpP+77IcSs 7tPOdGScz+nkLM27djgEUJmCdoJuNpCHuKgxmw0NyF7ZIoQSkDAPPNyhDuGhMF/SlLICkTdQZ70qmPv4 oyblgbThluj91haoCiP6RmswKiEA2nGHMHaBylI+rXfY0Q5VIfZS/ngsrM8EfKXhnHw9Mbn5uFNkj5OE ZT8Za6UfPRUj8OCtgM6iam9Wi6+Jj+wOyjSkLImuT [file] XKnawIZVXDEZA0CP0aNWHd4RpXk/W/Cukz3kegvnTZkVh9EU/dLNv+7z/PmBsX28f60w+6g1rfOjv/ADMINISTRATIVE SUPPORT ASSOCIATE duW1G1p4Muh5+9+6A71U6ayToUA15p2s5gDy56svWn6LEg/8fDg+dsD7vGK//g9I22gspn9h5wo4a3b9 dPr7gpm1q1+uY/dD80n6S6/PPPsy+++tJOPsvrvNpO um1gVK2T/pZpmwVsYOyiNRe6wH2gmWQh78tub7cR1A74cPj93rNyg0m4uv6RQw0iq+7bWm28k+9uVtaz pAUjX6b4ujo8J0F2T/u+86xFvpwXb+ddb/UoLgn7MCmf69PPgRAl7QtyBheFMii7XRwp7LLXxRA5tUzD fFXn7l/Ccd46VQtmA7P7dMwjsD/RM08qbjoUi+X26Z kjy4Bkysr1ka0xU9sp5bZc/qD85wMqc7+I1abM7l6AqUj/+2PEcz0o3A+fbh/SC0nCbVfK1h/zVdOsD+ 00+E3y2yrhkIz07x5GjevIz5K/juiTIIojt3P++Qdo6qVq9rJo2LL2eAz051iKelwZ5mx+s/N3KNwsZC Gnr42E3pHc+mUP768ab9e26W5s0An00bYey2eT4gOk [file] DQogICAgICAgICAgICAgICAgICAgICAgICAgICAgICAgICAgICAgICAgICAgICAgICAgICAgICAgICAg ICAgICAgICAgICAgICAgICAgICAgICAgICAgICAgIC AgICAgICAgICAgDQogICAgICAgICAgICAgICAgICAgICAgICAgICAgICAgICAgICAgICAgICAgICAgIC AgICAgICAgICAgICAgICAgICAgICAgICAgICAgICAgICAgICAgICAgICAgICAgICAgICAgDQogICAgIC AgICAgICAgICAgICAgICAgICAgICAgICAgICAgICAg ICAgICAgICAgICAgICAgICAgICAgICAgICAgICAgICAgICAgICAgICAgICAgICAgICAgICAgICAgICAg ICAgDQogICAgICAgICAgICAgICAgICAgICAgICAgICAgICAgICAgICAgICAgICAgICAgICAgICAgICAg ICAgICAgICAgICAgICAgICAgICAgICAgICAgICAgIC AgICAgICAgICAgICAgDQogICAgICAgICAgICAgICAgICAgICAgICAgICAgICAgICAgICAgICAgICAgIC AgICAgICAgICAgICAgICAgICAgICAgICAgICAgICAgICAgICAgICAgICAgICAgICAgICAgICAgDQogIC AgICAgICAgICAgICAgICAgICAgICAgICAgICAgICAg ICAgICAgICAgICAgICAgICAgICAgICAgICAgICAgICAgICAgICAgICAgICAgICAgICAgICAgICAgICAg ICAgICAgDQogICAgICAgICAgICAgICAgICAgICAgICAgICAgICAgICAgICAgICAgICAgICAgICAgICAg ICAgICAgICAgICAgICAgICAgICAgICAgICAgICAgIC AgICAgICAgICAgICAgICAgDQogICAgICAgICAgICAgICAgICAgICAgICAgICAgICAgICAgICAgICAgIC AgICAgICAgICAgICAgICAgICAgICAgICAgICAgICAgICAgICAgICAgICAgICAgICAgICAgICAgICAgDQ ogICAgICAgICAgICAgICAgICAgICAgICAgICAgICAg ICAgICAgICAgICAgICAgICAgICAgICAgICAgICAgICAgICAgICAgICAgICAgICAgICAgICAgICAgICAg ICAgICAgICAgDQogICAgICAgICAgICAgICAgICAgICAgICAgICAgICAgICAgICAgICAgICAgICAgICAg ICAgICAgICAgICAgICAgICAgICAgICAgICAgICAgIC EwXTOyTPNfPKGhSTUuRFDxAHMaCQe8Z8exCAPjGPFhBW2hEGw7Is8+ZKeORaNnCUJ2otNuqA5FLV6md3 QmGFxbTPEem1WbMXo7UV3MTAFxXAtpKL1WPSmqxn2JCCErZRUraPUZd5oiWtLwSJN7JBBgFnlmOB2MOS OyX9vnisCgTGStFJYTACxmDECVTQspFXMEPDDrNCSc PoVfXwHwKKFjMN7JJNRfU700otGrUM0VJb5WDsWgOT0eoo8TBqZvMBYhLyhKYxz6YRgpQI1BaKOlnUKa DZCrUKTWGaGpU5uce6OiGnFkTWXQRAuqCG6Gc9GiwAZzPXo+El0BMV7vv3ZuASyaGZSkHV9byt0VINpB YnOzV4YbaDnlCSUuw8ZtMKQsOSTLwK9oPEZ7IRG7AE X7DPQjNP1dVUFERHurcaPwcU8iVSdsGGRrSGAdXC7aNJ4wNOZfJDLiXhRnWUGVJE4GXAHtXCLtwAYdIT BfQWMWMZ4BIBuzOIL2XOPhbcXziTWaYHfgOJ6AHDFuvaTuRqKjBNGLYHm+Ap4IAA8lb9DxQGmgRtXoXK 6mta3HWDpNHsMoI5Z7aCFsW6J0QQddQu2WTUAuDCZq AbybHJBWWLyuTL5TBA7ntfH4MT2ZoTDpXRJlRNIxjMZvJDr6J43dqRToEUvhHE1AWAP+Marcia+Cs1INYOw FCPvRPAwTzLgEILMMaWaF5CzT6OZn8LmK7GeWE28jLdlgaGrSJxrSY6KIT0tIJEkTSTXXP8XoVVkiD2i qhGrKSNhFRFDPmTqD85deTVfXTFjDJB5WFKnRo9HGL AaV8MsliUvdUvdncNuDFPaDRNOND0TLOjmguXwmTFwmGvoOF10kFjiKX9ZHb6OKvLvGR6evk1EgMDvPd 7BQNQhMi1FQYOvOPToTZIoFEU0AZXbZuFgQLtpCLEdPVGnLNH1WWPoMVNkQI0XIbTwRAGfBpGfDPLmSL NsMHHaym0TIWIqBMKrRyk0DPLgGXEvFPVsDDrnRAGq KKJeGEC7BCNnDZSjQJ8UNdXvMLTlAUC3MZDnKFXzXUIsqj7UQCYpHKNiEkrhAAGzMSMvSDSpUFfhWSQs UHT0MqO0XPFtSPCsHP4AQzNrEPQoNKL6WHtnRIMoDHDrpu2IPMNxCGPdIIFfOOSxXVQiHPSiPVmtYNOr UWWwCuZ7XWYvUIDyHR5BMwMfULIaMSY1BfHsMJCmIZ Jgqj0IKWAxRTUfUUJyCkHtINVyILJvDHzwSPHkLAU3XAM9XGPrFEWzTW6ZEaBwIFFcAPClGbBjDQApIU Efhp3FSITzFQUxLaE0KIFsOLYfWMTxKTvsQRBaGON2Vtl8UIBbYQGkCM6UFlArZVDdAOt5LhVzLYWiIH Brie6QZXFoUDVcZQXgJWFkDUOfUHEaDBmaPMCbCGX2 RxDbIWZsCSCxPZ2YMnObKQAeUGm7TLlfPIQpTUNhkf6WBYWyCPVjBBs9IMWmQBEtMVMrSTdaWWPlGWDy FGs4ZGTjQORuPR0AUbYtPPHoGqMmWRwmBSRoFYBqqa4FHSLwMWEfKRCuFSOzSDNnJFAdDAgxBVVwJUG5 SUWlXYOdJNOaBV5EQzOuSJRhIeD8TOBoHNKjDXQekt 5TZTZtKXDkXGy1LJZrUNNnYEZxVPlgSZHqESY8MSExXCMmYMHcMK9ZEuPsSNBjXhU5ALmcJVStGLPdwc 4MFFOhIAViHfuuSiVvJVJqOWWwKTmdVPVdEED8EWvvZNZiTHFhXX5POcNzIZNoHducMUGyIMUyUKUcgo 0YyTWcdVobza3MQVpGAq8KbIndANNoPVkuLb0rfQKd XcGeSGTIJt6LhaTgOQWmXBSJTTqtVKIgXSB2R1RtEjYhCkZxE7TlCVHwV8JoSAObZUPqSQbpMuU3DvH0 ZfR4ArIcBNA1XcUoBcQiAkG2TkGgIOCyBeK0QGMlLTF+UY4kDOm+Nw3Nz0GiruR1pdTxWJptAGM0Pq7W RTVBU3XZTf== ID Date Data Source [id number] 09/04/2019 03:29:00 PM EST [facility]) Name Value Range Interpretation Code Description Data Sherron rce(s) Supporting Document(s) EKG Laboratory test result [facility] ([facility]) ID Date Data Source [id number] 08/30/2019 11:52:47 AM [facility] Name Value Range Interpretation Code Description Data Sherron rce(s) Supporting Document(s) Glucose [Mass/volume] in Capillary blood by Glucometer 128 mg/dL 70- 140 [facility] ID Date Data Source [id number] 08/30/2019 08:09:23 AM [facility] Name Value Range Interpretation Code Description Data Sherron rce(s) Supporting Document(s) Glucose [Mass/volume] in Capillary blood by Glucometer 130 mg/dL 70- 140 [facility] ID Date Data Source [id number] 08/30/2019 05:36:13 AM [facility] Value Range Interpretation Code Description Data Sherron rce(s) Supporting Document(s) Leukocytes [#/volume] in Blood by Automated count 7.1 10*3/uL 4-10 [facility] Erythrocytes [#/volume] in Blood by Automated count 2.77 10*6/uL 4.1- 5.3 L [facility] Hemoglobin [Mass/volume] in Blood 8.8 g/dL 11.5-15.5 [facility] Hematocrit [Volume Fraction] of Blood by Automated count 26.2 % 3 6-45 L [facility] Erythrocyte mean corpuscular volume [Entitic volume] by Auto mated count 94.8 fL 80-96 [facility] Erythrocyte mean corpuscular hemoglobin [Entitic mass] by Automated count 31.9 pg 27-33 [facility] Erythrocyte mean corpuscular hemoglobin concentration [Mass/volume] by Automated count 33.6 g/dL 32[facility]0-[facility] E[facility] distribution width [Ratio] by Automated count 14.3 % 11.5-14.5 [facility] Platelets [#/volume] in Blood by Automated count 188 10*3/uL 150-400 [facility] ID Date Data Source [id number] 08/29/2019 09:44:35 PM [facility] Value Range Interpretation Code Description Data Sherron rce(s) Supporting Document(s) Glucose [Mass/volume] in Capillary blood by Glucometer 139 mg/dL 70- 140 [facility] ID Date Data Source [id number] 08/29/2019 04:49:00 PM [facility] Value Range Interpretation Code Description Data Sherron rce(s) Supporting Document(s) Glucose [Mass/volume] in Capillary blood by Glucometer 149 mg/dL 70- 140 [facility] ID Date Data Source [id number] 08/29/2019 12:46:45 PM [facility] Value Range Interpretation Code Description Data Sherron rce(s) Supporting Document(s) Glucose [Mass/volume] in Capillary blood by Glucometer 128 mg/dL 70- 140 [facility] ID Date Data Source [id number] 08/29/2019 08:47:46 AM [facility] Value Range Interpretation Code Description Data Sherron rce(s) Supporting Document(s) Glucose [Mass/volume] in Capillary blood by Glucometer 110 mg/dL 70- 140 [facility] ID Date Data Source [id number] 08/29/2019 09:21:05 AM [facility] Name Value Range Interpretation Code Description Data Sherron rce(s) Supporting Document(s) Hepatitis C virus Ab [Presence] in Serum or Plasma by Immuno assay Non Reactive [facility] No serological evidence of active infect ion. If recent exposure is suspected, test for HCV RNA. ID Date Data Source [id number] 08/29/2019 05:54:02 AM [facility] Name Value Range Interpretation Code Description Data Sherron rce(s) Supporting Document(s) Leukocytes [#/volume] in Blood by Automated count 7.2 10*3/uL 4-10 [facility] Erythrocytes [#/volume] in Blood by Automated count 3.01 10*6/uL 4.1- 5.3 L [facility] Hemoglobin [Mass/volume] in Blood 9.8 g/dL 11.5-15.5 [facility] Hematocrit [Volume Fraction] of Blood by Automated count 28.2 % 3 6-45 L [facility] Erythrocyte mean corpuscular volume [Entitic volume] by Auto mated count 93.6 fL 80-96 [facility] Erythrocyte mean corpuscular hemoglobin [Entitic mass] by Automated count 32.6 pg 27-33 [facility] Erythrocyte mean corpuscular hemoglobin concentration [Mass/volume] by Automated count 34.8 g/dL 32.0-36.0 [facility] Eryth[facility] distribution width [Ratio] by Automated count 14.6 % 11.5-14.5 H [facility] Platelets [#/volume] in Blood by Automated count 210 10*3/uL 150-400 [facility] ID Date Data Source [id number] 08/29/2019 06:09:35 AM [facility] Name Value Range Interpretation Code Description Data Sherron rce(s) Supporting Document(s) Bicarbonate [Moles/volume] in Serum 23 mmol/L 22-29 [facility] Chloride [Moles/volume] in Serum or Plasma 108 mmol/L 98-107 [facility] Creatinine [Mass/volume] in Serum or Plasma 0.45 mg/dL 0.50-0.90 L [facility] Glucose [Mass/volume] in Serum or Plasma 137 mg/dL 70-140 [facility] Potassium [Moles/volume] in Serum or Plasma 3.9 mmol/L 3.4-5.1 [facility] Sodium [Moles/volume] in Serum or Plasma 138 mmol/L 136-145 [facility] Urea nitrogen [Mass/volume] in Serum or Plasma 9 mg/dL 8-23 [facility] Anion gap 3 in Serum or Plasma 7 mmol/L 8-15 L [facility] Osmolality of Serum or Plasma by calculation 287 mosm/kg 275-300 [facility] Creatinine/Urea nitrogen [Mass Ratio] in Serum or Plasma 20 [facility] Calcium [Mass/volume] in Serum or Plasma 8.4 mg/dL 8.8-10.2 L [facility] Glomerular filtration rate/1.73 sq M pre dicted among non-blacks [Volume Rate/Area] in Serum or Plasma by Creatinine-based formula (MDRD) >6 0 [facility] Glomerular filtration rate/1.73 sq M pre dicted among blacks [Volume Rate/Area] in Serum or Plasma by Creatinine-based formula (MDRD) >60 [facility] ID Date Data Source [id number] 08/28/2019 09:12:12 PM [facility] Name Value Range Interpretation Code Description Data Sherron rce(s) Supporting Document(s) Glucose [Mass/volume] in Capillary blood by Glucometer 192 mg/dL 70- 140 [facility] ID Date Data Source [id number] 08/28/2019 05:02:11 PM [facility] Name Value Range Interpretation Code Description Data Sherron rce(s) Supporting Document(s) Glucose [Mass/volume] in Capillary blood by Glucometer 163 mg/dL 70- 140 [facility] ID Date Data Source [id number] 08/28/2019 01:51:41 PM [facility] XR PELVIS 1-2 VIEWS [id number] RESULTInt erpreted by:Corby Peterson [facility]ITALData [facility], one to 2 views, portable dated 08/28/2019.REASON [...] Date Data Source [id number] 08/28/2019 12:23:58 PM [facility] Name Value Range Interpretation Code Description Data Sherron rce(s) Supporting Document(s) Glucose [Mass/volume] in Capillary blood by Glucometer 159 mg/dL 70- 140 [facility] ID Date Data Source [id number] 08/28/2019 11:18:33 AM [facility] Name Value Range Interpretation Code Description Data Sherron rce(s) Supporting Document(s) Operative Note [facility] UPMDKw6pBgNDYmZl76/FPXkkMJZlz1IsLSaeJFn9EFbiLOMwP5BwDBE8dS7iAJT3HEsHXzCiCnBbLULi lbm [file] z8oLKEowEmukaxfLjDwYqXBhSdsA/HonT98R29zggF0rS3rSeb/i1mhv2fkH9Ord4xv/46o3VSIvi+[employer] Husband[employer] 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 [file] ICAgICAgICAgICAgICAgICAgICAgICAgICAgICAgICAgICAgICAgICAgICAgICAgICAgICAgICAgICAg ICAgICAgICAgICAgICAgICAgICAgICAgICAgICAgICAgICAgICAgDQogICAgICAgICAgICAgICAgICAg ICAgICAgICAgICAgICAgICAgICAgICAgICAgICAgIC AgICAgICAgICAgICAgICAgICAgICAgICAgICAgICAgICAgICAgICAgICAgICAgICAgDQogICAgICAgIC AgICAgICAgICAgICAgICAgICAgICAgICAgICAgICAgICAgICAgICAgICAgICAgICAgICAgICAgICAgIC AgICAgICAgICAgICAgICAgICAgICAgICAgICAgICAg DQogICAgICAgICAgICAgICAgICAgICAgICAgICAgICAgICAgICAgICAgICAgICAgICAgICAgICAgICAg ICAgICAgICAgICAgICAgICAgICAgICAgICAgICAgICAgICAgICAgICAgDQogICAgICAgICAgICAgICAg ICAgICAgICAgICAgICAgICAgICAgICAgICAgICAgIC AgICAgICAgICAgICAgICAgICAgICAgICAgICAgICAgICAgICAgICAgICAgICAgICAgICAgDQogICAgIC AgICAgICAgICAgICAgICAgICAgICAgICAgICAgICAgICAgICAgICAgICAgICAgICAgICAgICAgICAgIC AgICAgICAgICAgICAgICAgICAgICAgICAgICAgICAg ICAgDQogICAgICAgICAgICAgICAgICAgICAgICAgICAgICAgICAgICAgICAgICAgICAgICAgICAgICAg ICAgICAgICAgICAgICAgICAgICAgICAgICAgICAgICAgICAgICAgICAgICAgDQogICAgICAgICAgICAg ICAgICAgICAgICAgICAgICAgICAgICAgICAgICAgIC AgICAgICAgICAgICAgICAgICAgICAgICAgICAgICAgICAgICAgICAgICAgICAgICAgICAgICAgDQogIC AgICAgICAgICAgICAgICAgICAgICAgICAgICAgICAgICAgICAgICAgICAgICAgICAgICAgICAgICAgIC AgICAgICAgICAgICAgICAgICAgICAgICAgICAgICAg ICAgICAgDQogICAgICAgICAgICAgICAgICAgICAgICAgICAgICAgICAgICAgICAgICAgICAgICAgICAg JFGsGNErFVWuQHIoTMEqTAWzCAHoMCAiYDEyRZWoHOFcIBPoCRVhNFUrUBRiCMJxMJp9S0lyILWqLRVg NL1hDUd3No1+OKaXQaUdQGH5beHdaP0LKW8tr1YpRZ xdUWKhd0VvQDk5BP1GADIgASjmMP5HOLcvyg6YNVPpMRYsyDHSy6lxHpPwLPZ6OVZaKiqtAP2LZMAiC7 rzulFvKXJaGZZGXPqpGLRDPPicWNPVSV9KMqWdR8PqbE64RGUJVs5+XXzcidBtPekYFbApNRZai6SnDE s5EB0UPPMgMhlgo7OdMbEwUFXHMLnaOR3JVKQ1HTN8 WZLkFc2KBOBoG388eqRqAV1FEv8HKsUrIV7csh2EYiCoHMIhSctQByb4CMxcZE7BrUJaOWiIoRYwIWUh liDbXh47IQGrlBTXhHqlNKB7CFHjWX3ZKRV1QYYcPJWdLfTeIHEiEYogORJKLJcYJnQyW9Qmv8BtBwP2 VZNzFdPfBAyjFRPsByF6JU86mIwrNL7SXYBqNGHaQF 88TDPyOAMmZg3YFc8HIbVsRR4vqc7VTtRwOTYgLtyUIqn4RHghPA9RsRViT7QuyCYns6iLJtEkN6QNDF FdDCDjSj2IENAuWdLdYUBqTXpiJT1vACYyCIVBwHphncK0ZJ3CZS6hrqShCY0JKjSbYm8qQu2SZiQpU4 CiB8VzQQYmTKHNHTipSA4YDSrfJV5dFN6Kb4GFqIEg zM5abg3WXETjAAFmIwthpd2AVmhmL5K0sSnlWSNtMzFfZVUESYkgIR7AUGSvZEP9TAOgIgQwAOERZyIk H96vFY1FU0Ihi71zXyY8CGRwHpNiPBkfWC69bPslrrUxqWOsoNbaFT9YNl8+DQplbmRvYmoNCnhyZWYN DqIzVlCBLmGdEHYdNXYlTTYrHdH3RrMbQa2NNCGbGH MsBPQvRsAaEXFeUNNuAPquORQmFHS5HEN7FBJdGMBgNH7WPcLdVEUiRsd6SdKnLAMcXCHqno7JVJBkFH DxAZN9XoKaEFOcTJWzXNqzPNLjTOWgKyQtTARiTEOjWZ0HBkUvXQMaPBV1HRQmIEHfTSHhrs7BIPSgKB PiXyN3GDGwFESfKZTvLKobUYFqNTP0ARc8WJYcQNDs SK5LEjSkGNVwHGS4VvTpGATrLDShse5XTPByLWVgCTijFsVqSUWyVKFcAPcxRYOcPAScHym1HXHjSUKi YH8ZUdWmIYFzKAK7WZXdHIRiGVZfgp1DJLGvHMGnOfN9DhAlHXPjDEPmECmyCFJuBEHlVJF9YQQnTAYy HQ0NVxHwWRAyGRQpXqpsQRUzTFLhzc3JWGLoZTXzHv NqGVMiGXLjKDDvHMfkFBSlIXJ9SKYoUWSdKEFvPG7OIvGhRPArOpHdAejuWOQfNJShsj0GDELaAZMkJg YhMWBsBNOtJSGsSRwdTOTjWBZ0PhE8KWUcLRAsIS5LNsBgTJHpBwI9KPCaQEXzBENhdf2ZHIQgUKCsPl A9NrNaORDwRHSpYIqvTBBhJZM2YjWtDGSqSYRlPT0Q TqLcMJEhUhd8RTMbIHRjWBZpuj6YOFPnHEZeOGb2SCTqTREtXHVdHWt3usHbjVMzQAh5LH4UC9IqehVd DmKSNw2Zg502UFA7PYXqIk1OB0ypQi8vPOUbUHBQRl3YNOc1S7GzNTXmEzZvDSEsFyCiVSklW5U8ReD8 NDUzYzZlYTU+NOvnHZU0LoQyNQOfURGzQpFiPVCaPZ w9SKi2OHSrMjCyWZ5qIYOHSe6+SIvfhORjiTtrWVFCKrN6HjInXHtqQVDVKs2E ID Date Data Source [id number] 08/29/2019 09:56:00 AM EST [facility] Surgical Pathology ReportName: KEY SANZ RMRN: [id number] Number: [id number] Date: 08/28/2019 11:10Received Date: 08/28/2019 13:29Physician(s): LORRAINE,BIANKA LORRAINE,EMILSpecimen(s) ReceivedA: Right femoral headClinical HistoryPrimary osteoarthritis of the left hip. DiagnosisBONE, RIGHT HIP, ARTHROPLASTY: DEGENERATIVE JOINT DISEASE. (GROSS ONLY)./pws Jennifer Gleason MD;Resident PathologistElectronically Signed By Matty Sun MD, Attending Pathologist 08/29/201909:56:10Processed at [facility]ology [facility], [address] [place] [address]. [facility], [address] [place] [address]. The attending pathologist named above attests that he/she haspersonally reviewed the relevant preparation(s) for the specimen,performed microscopic examination when indicated, and rendered the finaldiagnosis. Unless 'gross-only' is specified, the final diagnosis is basedon a microscopic examination of medical customer service representative sections of tissue.Gross DescriptionThe specimen [...] developed and their performance characteristics determined by [facility] Pathology department. They have not been cleared or approved by the USFood and Drug Administration. The FDA has det ermined that such clearanceor approval is not necessary. Name Value Range Interpretation Code Description Data Sherron rce(s) Supporting Document(s) ID Date Data Source [id number] 08/28/2019 07:37:40 [facility] Name Value Range Interpretation Code Description Data Sherron rce(s) Supporting Document(s) History and Physical [facility] ROVDYg7iHtIJUwGd58/DUNgxTNVdb2JeOQtlTPo2SJhmXMTlS8XhWQT7wK9uOGU3OLqGPgBfMlPsKDMr m [file] ICAgICAgICAgICAgICAgICAgICAgICAgICAgICAgIC AgICAgICAgICAgICAgICAgICANCiAgICAgICAgICAgICAgICAgICAgICAgICAgICAgICAgICAgICAgIC AgICAgICAgICAgICAgICAgICAgICAgICAgICAgICAgICAgICAgICAgICAgICAgICAgICAgICAgICAgIC ANCiAgICAgICAgICAgICAgICAgICAgICAgICAgICAg ICAgICAgICAgICAgICAgICAgICAgICAgICAgICAgICAgICAgICAgICAgICAgICAgICAgICAgICAgICAg ICAgICAgICAgICANCiAgICAgICAgICAgICAgICAgICAgICAgICAgICAgICAgICAgICAgICAgICAgICAg ICAgICAgICAgICAgICAgICAgICAgICAgICAgICAgIC AgICAgICAgICAgICAgICAgICAgICANCiAgICAgICAgICAgICAgICAgICAgICAgICAgICAgICAgICAgIC AgICAgICAgICAgICAgICAgICAgICAgICAgICAgICAgICAgICAgICAgICAgICAgICAgICAgICAgICAgIC AgICANCiAgICAgICAgICAgICAgICAgICAgICAgICAg ICAgICAgICAgICAgICAgICAgICAgICAgICAgICAgICAgICAgICAgICAgICAgICAgICAgICAgICAgICAg ICAgICAgICAgICAgICANCiAgICAgICAgICAgICAgICAgICAgICAgICAgICAgICAgICAgICAgICAgICAg ICAgICAgICAgICAgICAgICAgICAgICAgICAgICAgIC AgICAgICAgICAgICAgICAgICAgICAgICANCiAgICAgICAgICAgICAgICAgICAgICAgICAgICAgICAgIC AgICAgICAgICAgICAgICAgICAgICAgICAgICAgICAgICAgICAgICAgICAgICAgICAgICAgICAgICAgIC AgICAgICANCiAgICAgICAgICAgICAgICAgICAgICAg ICAgICAgICAgICAgICAgICAgICAgICAgICAgICAgICAgICAgICAgICAgICAgICAgICAgICAgICAgICAg ICAgICAgICAgICAgICAgICANCiAgICAgICAgICAgICAgICAgICAgICAgICAgICAgICAgICAgICAgICAg ICAgICAgICAgICAgICAgICAgICAgICAgICAgICAgIC AgICAgICAgICAgICAgICAgICAgICAgICAgICANCjw/kQNhD5szvIPpfxI9K0vmQu1AQw5KHG9fy2DeHP KsYHdrjzVgTkcWDkRzLNXpQvyFSut2MJqvSB7GrYZmX4ShL9KjHVwgEE3IGMHvBNZkmBApEXMvGNYyPd Z0KZUbEFblBL8LmKMnGFvbAPNfVOZrCdLjJKLsBRFr HYDqXSEjCWQZBV4BVcRmR1PqzY59OROTIr3+DLqekmFgIbbMImX4ZISwn3XjQNx5OF6LZOMyUqkht3Bs ZjmyDTAOIGyzPM4UJVG2USG6HTNaPz0JHRHlI224kbKkLF2AGt1OWrPbAB1baw7EUjkeHEBjKngZNyg6 XYknLN5ZfFDaUBxCWgVvVefjHG3xhALImsOuFWDKIO PttEQpNiMzGdCgIxIqZJc2RaauKL9nTMkaJO5EHGY1KKypGJNrJDNuJ7mAXlUxOTMmGiNwrVutKY4VCd RwA5NilaAnaLMtJWGeWTPWZr6+PHqropHeBanENvUqCFIdl2XmMRh5VY5ERTDrQJpkPB8BZQVmsO8hIN mqQW0OFcBjDuSlTMLHPiBkR87bzWRrZVu6J4AaYcUr ZGVkRmlsZXMgPDwvTmFtZXMgWyBdDQogID4+ID4+WHlbKH2SACsbxfCyWHQoYd7TCSBrYUPfJD8eMIVs WJOlD3O0mBqnJXSDTdBeU8mabqhpMR9wVCHbV525fFwjmzJbCVQ9QDHlOy4XDKZgHRM6DMGppBHvOdct WSHVGQxoWV6GhQPyUPS8qD7uMOaaLCPmHWRzY3gNHp PenWotCH01nBfindKexKXlMHg+Ei1LNW3vy8TlBYc9bsVoOAarJKWqJRrxYGOjYLGsYMGbJTQ8NPD3AE LZFlFfBABvHEKmZTxoOCDeNEBmmx5TRQMdKVLgFGs1LsPoTXViVWYzXZeyBVLrAYO5KWvvNSQjLTUzLB 0YDgFcOUYnRVOlSOymYQXqVIDaxs8NFGPiYRElYoFe ONHaWYZpZFBnICydJLAiJQUtHBYnUMOtXTJgWH4JBnHgOAFmVIYsVmWxVKKeYBBcbq8VMFNeTJCgXlNa TnEaUTPmBXSsAOkhFBHsWFO3BQWaOOGfXUGgYP1YUnMzATKxKPgtJyqoCHZuJTUeiy6ZZYBsEHZiOYo9 CVFtPYXoWIBjXKilUUTpEOWvWCT0YCNiRZMzNF7XEt AsIPHfYMA3RWbqKLPrGFUwsg1KUQZgIDSnCnWbUSDaEIBjOGUmEEduGHPwESLhKyf9ZDWrDDLqJX2XMg YkKLAiBGHwLLOlBUKxFFQpzn6WIQWhVEAcZXS2DFVoRHTgMEFzYBljUVEjPVW4OwI9PRMuHAQwTF8LQz HuTLMvFpDxTuKuIDQbMQUjmh9UIVEdPDHyJtK0RzUs UUJiTRYnPVjgLGLeNDGjYMJsUOQdFRWgTS8GRyFeLTGwDpPeQgqbIQWmLNApvb8CVOWnNIDwCGEePWEl EBHuIWQwYCynKJPzJCE4ZyA2KICiGEIaAJ7XWsFeETZpZlK8ZOacJDZmNAAyyv7LAKNuDOAmKDnfTWSr VIHrJLOdTOxtYOSmAUI1RDAsAUSjRLBdTJ7SAlHdJA TcZxa3OFvxAGLiTZOvrk9EERSdIVWpEuO2IMHwHHVfSJHpYKcuKADtFRT9IJQmNTDlPPIyLR2NQtVpVC wnWIKFOks0LOidJ7e9VDQjGS4IE9Ryv9IvGuBoTFUVGLkzSR8lyzHhYFJpWq9KN5rCQyh4UYipQCXjWV JsWIVjKwskNsAnR2UoQFp3EGUsS6Q5JU2zSQzzJQN7 AkOgS0TdRJKpLMSmEnA1JUKyCTL2SdXxVblxCxAhOA2LKv7GRpF3SQF6eAYnRj7WToekFAjIKjQsAO4W DQo= ID Date Data Source [id number] 08/28/2019 06:59:52 AM [facility] Name Value Range Interpretation Code Description Data Sherron rce(s) Supporting Document(s) Glucose [Mass/volume] in Capillary blood by Glucometer 114 mg/dL 70- 140 [facility] ID Date Data Source [id number] 08/07/2019 03:33:51 PM [facility] CT LOWER EXTREMITY WITHOUT CONTRAST 7370 0FINAL [...] FINDINGS: Severe osteoarthritic changes right hip with [id number] opposition. Subchondral sclerosis and large subcortical bone [...] rce(s) Supporting Document(s) ID Date Data Source [id number] 08/08/2019 09:27:33 AM [facility] Service Cmnt XXX-Imp : Microorganism XXX Cult : Polymerase chain reaction assay was NEGATIVE for both methicillin-resistant Staphylococcus aureus (MRSA) and methicillin-susceptible Staphylococcus aureus (MSSA) Name Value Range Interpretation Code Description Data Sherron rce(s) Supporting Document(s) ID Date Data Source [id number] 08/07/2019 09:18:49 PM [facility] Name Value Range Interpretation Code Description Data Sherron rce(s) Supporting Document(s) ABO and Rh group [Type] in Blood [facility] Blood group antibody screen [Presence] in Serum or Plasma [facility] Blood bank comment [facility] [facility] ID Date Data Source [id number] 07/31/2019 12:04:00 PM EST [facility] ([facility]) Name Value Range Interpretation Code Description Data Sherron rce(s) Supporting Document(s) EKG see result in chart [facility]) ID Date Data Source [id number] 07/29/2019 05:27:49 PM [facility] XR HIPS- BILAT, 3-4 VIEWS [id number] RE SULTInterpreted by:MARIO ALBERTO Marcelinolinical history: Bilateral [...] rce(s) Supporting Document(s) ID Date Data Source [id number] 07/28/2019 09:30:00 AM EST [facility] ([facility]) Name Value Range Interpretation Code Description Data Sherron rce(s) Supporting Document(s) Prothrombin Time 12.6 s 11.8-14.0 Normal (applies to non-numeric results) [facility]) Inr 0.97 Normal (applies to non-numeric resul ts) [facility]) THERAPUTIC HUMAN INR VALUES INDICATIONS NORMAL RANGES PROPHYLAXIS/TREATMENT OF: VENOUS THROMBOSIS 2.0-3.0 PULMONARY EMBOLISM 2.0-3.0 PREVENTION OF SYSTEMIC EMBOLISM FROM: TISSUE HEART VALVES 2.0-3.0 ACUTE MYOCARDIAL INFARCTION 2.0-3.0 VALVULAR HEART DISEASE 2.0-3.0 ATRIAL FIBRILLATION 2.0-3.0 MECHANICAL VALVES(HIGH RISK) 2.5-3.5 RECURRENT MYOCARDIAL INFARCTION 2.5-3.5 ID Date Data Source [id number] 07/28/2019 09:30:00 AM EST [facility] ([facility]) Name Value Range Interpretation Code Description Data [facility] rce(s) Supporting Document(s) Red Blood Count 4.37 10 4.00-5.40 Normal (applies to non-numeric results) [facility]) White Blood Count 3.9 10 4.0-10.0 Below low normal [facility]) Hematocrit 41.7 % 36.0-47.0 Normal (applies to non-numeric resul ts) [facility]) Hemoglobin 13.6 g/dL 12.0-15.5 Normal (applies to non-numeric resul ts) [facility] ([facility]) Mean Corpuscular Hemoglobin 31.1 pg 27.0-33.0 Norm al (applies to non-numeric results) [facility] ([facility]) Mean Corpuscular HGB Conc 32.6 g/dL 32.0-36.5 Normal (applies to non-numeric results) [facility] ([facility]) Mean Corpuscular Volume 95.4 fl 80.0-96.0 Normal ( applies to non-numeric results) [facility] ([facility]) Platelet Count, Automated 342 10 150-450 Normal (applies to non-numeric results) [facility] ([facility]) Red Cell Distribution Width 14.4 % 11.5-14.5 Norm al (applies to non-numeric results) [facility] ([facility]) Neutrophils % 50.2 % 36.0-66.0 Normal (applies to non-numeric re sults) [facility] ([facility]) Lymph % 34.4 % 24.0-44.0 Normal (applies to non-numeric resul ts) [facility] ([facility]) Harper % 10.8 % 0.0-5.0 Above high normal [facility] ([facility]) Baso % 1.5 % 0.0-1.0 Above high normal [facility] ([facility]) Immature Granulocyte % 0.3 % 0-3.0 Normal (applies to non-n umeric results) [facility] ([facility]) Eos % 2.8 % 0.0-3.0 Normal (applies to non-numeric resul ts) [facility] ([facility]) Lymph # 1.3 10 1.5-5.0 Below low normal [facility] ( [facility]) Nucleated Red Blood Cell % 0.0 % 0-0 Normal (applies to n on-numeric results) [facility] ([facility]) Neutrophils # 2.0 10 1.5-8.5 Normal (applies to non-numeric re sults) [facility] ([facility]) Eos # 0.1 10 0.0-0.5 Normal (applies to non-numeric resul ts) [facility] ([facility]) Harper # 0.4 10 0.0-0.8 Normal (applies to non-numeric resul ts) [facility] ([facility]) Baso # 0.1 10 0.0-0.2 Normal (applies to non-numeric resul ts) [facility] ([facility]) ID Date Data Source [id number] 07/28/2019 09:30:00 AM EST [facility] ([facility]) Name Value Range Interpretation Code Description Data Sherron rce(s) Supporting Document(s) Cholesterol Level 314 mg/dL Above high normal [facility] ([facility]) Triglycerides Level 55 mg/dL Normal (applies to non-nume patricia results) [facility] ([facility]) HDL Cholesterol 101 mg/dL Normal (applies to non-numeric results) [facility] ([facility]) LDL Cholesterol 202 mg/dL Above high normal [facility] ([facility]) Non-HDL-C 213 mg/dL Normal (applies to non-numeric resul ts) [facility] ([facility]) Cholesterol Risk Ratio 3.108 Normal (applies to non-n umeric results) [facility] ([facility]) ID Date Data Source [id number] 07/28/2019 09:30:00 AM EST [facility] ([facility]) Name Value Range Interpretation Code Description Data Sherron rce(s) Supporting Document(s) Hemoglobin A1c 6.1 % Normal (applies to non-numeric r esults) [facility] ([facility]) REFERENCE RANGES: 4.5-5.6% NORMAL 5.7-6.4% SUGGESTS IMPAIRED GLUCOSE META BOLISM >= 6.5% ABNORMAL Estimated Average Glucose 128 mg/dL 60-110 Above high normal [facility] ([facility]) ID Date Data Source [id number] 07/28/2019 09:30:00 AM EST [facility] ([facility]) Name Value Range Interpretation Code Description Data Sherron rce(s) Supporting Document(s) Glucose, Fasting 111 mg/dL 70-100 Above high normal [facility] ([facility]) Blood Urea Nitrogen 12 mg/dL 7-18 Normal (applies to non-nume patricia results) [facility] ([facility]) Creatinine For GFR 0.71 mg/dL 0.55-1.30 Normal (applies to non -numeric results) [facility] ([facility]) Glomerular Filtration Rate > 60.0 Normal (applies to n on-numeric results) [facility] ([facility]) <content>Units are mL/min/1.73 m2</content>
<content></content>
<content>Chronic Kidney Disease Staging per NKF:</content>
<content></content>
<content>Stage I & II GFR >=60 Normal to Mildly Decreased</content>
<content>Stage III GFR 30- 59 Moderately Decreased</content>
<content>Stage IV GFR 15-29 Severely Decreased</content>
<content>Stage V GFR <15 Very Little GFR Left</content>
<content>ESRD GFR <15 on CERAMICS TEST ENGINEER</content>
<content></content> Sodium Level 137 meq/L 136-145 Normal (applies to non-numeric res ults) [facility] ([facility]) Potassium Serum 5.0 meq/L 3.5-5.1 Normal (applies to non-numeric results) [facility] ([facility]) Chloride Level 102 meq/L 98-107 Normal (applies to non-numeric r esults) [facility] ([facility]) Anion Gap 6 meq/L 8-16 Below low normal [facility] ( [facility]) Carbon Dioxide Level 29 meq/L 21-32 Normal (applies to non-num davonte results) [facility] ([facility]) Calcium Level 9.8 mg/dL 8.8-10.2 Normal (applies to non-numeric re sults) [facility] ([facility]) Alt/SGPT 20 U/L 12-78 Normal (applies to non-numeric resul ts) [facility] ([facility]) Ast/Sgot 10 U/L 7-37 Normal (applies to non-numeric resul ts) [facility] ([facility]) Bilirubin,Total 0.5 mg/dL 0.2-1.0 Normal (applies to non-numeric results) [facility] ([facility]) Alkaline Phosphatase 37 U/L 45-117 Below low normal [facility] ([facility]) Albumin 3.8 GM/DL 3.2-5.2 Normal (applies to non-numeric resul ts) [facility] ([facility]) Albumin/Globulin Ratio 1.27 1.00-1.93 Normal (applies to non-numeric results) [facility] ([facility]) Total Protein 6.8 GM/DL 6.4-8.2 Normal (applies to non-numeric re sults) [facility] ([facility]) Procedure Social History Code Duration Value Status Description Data Source(s ) Smoking 09/10/2020 12:00:00 AM EST Patient has never smoked co mpleted Patient has never smoked [facility] ([facility]) Alcohol intake 04/03/2020 12:00:00 AM EDT Current drinker of al cohol (finding) completed Current drinker of alcohol (finding) [facility] Tobacco use and exposure 04/03/2020 12:00:00 AM EDT Never used co mpleted Never used [facility] Smoking 04/03/2020 12:00:00 AM EDT Never smoker completed Never s [facility] Alcohol intake 10/17/2019 12:00:00 AM EST Current drinker of al cohol (finding) completed Current drinker of alcohol (finding) [facility] Smoking 10/17/2019 12:00:00 AM EST Never smoker completed Never s [facility] Alcohol intake 09/19/2019 12:00:00 AM EST Current drinker of al cohol (finding) completed Current drinker of alcohol (finding) [facility] Smoking 09/19/2019 12:00:00 AM EST Never smoker completed Never s [facility] Alcohol intake 08/29/2019 12:00:00 AM EST Current drinker of al cohol (finding) completed Current drinker of alcohol (finding) [facility] Smoking 08/29/2019 12:00:00 AM EST Never smoker completed Never s [facility] Alcohol intake 08/07/2019 12:00:00 AM EST Current drinker of al cohol (finding) completed Current drinker of alcohol (finding) [facility] Smoking 08/07/2019 12:00:00 AM EST Never smoker completed Never s [facility] Vital Signs ID Date Data Source UNK Name Value Range Interpretation Code Description Data Source(s) Powell body weight 135 [lb_av] 135 [lb_av] [facility] T ([facility]) Oxygen saturation in Arterial blood by Pulse oximetry 98 % 98 % [facility] ([facility]) Body temperature 98.0 [degF] 98.0 [degF] [facility] ([facility]) Respiratory rate 14 /min 14 /min [facility] ( [facility]) Heart rate 100 /min 100 /min [facility] ([facility]) Body mass index (BMI) [Ratio] 29.9 kg/m2 29.9 k g/m2 [facility] ([facility]) Body weight 191.00 [lb_av] 191.00 [lb_av] [facility] ([facility]) Body height 67 [in_i] 67 [in_i] [facility] ([facility]) 5'7" Diastolic blood pressure 72 mm[Hg] 72 mm[Hg] [facility] ([facility]) Systolic blood pressure 160 mm[Hg] 160 mm[Hg] M [facility] ([facility]) Powell body weight 135 [lb_av] 135 [lb_av] [facility] ([facility]) Oxygen saturation in Arterial blood by Pulse oximetry 98 % 98 % [facility] ([facility]) Body temperature 98.0 [degF] 98.0 [degF] [facility] ([facility]) Respiratory rate 18 /min 18 /min [facility] ( [facility]) Heart rate 97 /min 97 /min [facility] ([facility]) Body mass index (BMI) [Ratio] 31.2 kg/m2 31.2 k g/m2 [facility] ([facility]) Body weight 199.00 [lb_av] 199.00 [lb_av] [facility] ([facility]) Body height 67 [in_i] 67 [in_i] [facility] ([facility]) 5'7" Diastolic blood pressure 84 mm[Hg] 84 mm[Hg] [facility] ([facility]) Systolic blood pressure 166 mm[Hg] 166 mm[Hg] M [facility] ([facility]) Powell body weight 135 [lb_av] 135 [lb_av] [facility] ([facility]) Oxygen saturation in Arterial blood by Pulse oximetry 99 % 99 % [facility] ([facility]) Body temperature 98.1 [degF] 98.1 [degF] [facility] ([facility]) Respiratory rate 18 /min 18 /min [facility] ( [facility]) Heart rate 94 /min 94 /min [facility] ([facility]) Body mass index (BMI) [Ratio] 30.0 kg/m2 30.0 k g/m2 [facility] ([facility]) Body weight 191.25 [lb_av] 191.25 [lb_av] [facility] ([facility]) Body height 67 [in_i] 67 [in_i] [facility] ([facility] 5'7" Diastolic blood pressure 76 mm[Hg] 76 mm[Hg] [facility] ([facility]) Systolic blood pressure 124 mm[Hg] 124 mm[Hg] M [facility] ([facility]) Oxygen saturation in Arterial blood by Pulse oximetry 99 % 99 % [facility]) Body temperature 99.1 [degF] 99.1 [degF] [facility] ([facility]) Respiratory rate 18 /min 18 /min [facility] ( [facility]) Heart rate 53 /min 53 /min [facility] ([facility]) Body mass index (BMI) [Ratio] 30.2 kg/m2 30.2 k g/m2 [facility] ([facility]) Body weight 193.12 [lb_av] 193.12 [lb_av] [facility] ([facility]) Body height 67 [in_i] 67 [in_i] [facility] ([facility]) 5'7" Diastolic blood pressure 78 mm[Hg] 78 mm[Hg] [facility] ([facility]) Systolic blood pressure 136 mm[Hg] 136 mm[Hg] M [facility] ([facility]) Oxygen saturation in Arterial blood by Pulse oximetry 99 % 99 % [facility] ([facility]) Body temperature 98.3 [degF] 98.3 [degF] [facility] ([facility]) Respiratory rate 16 /min 16 /min [facility] ( [facility]) Heart rate 90 /min 90 /min [facility] ([facility]) Body mass index (BMI) [Ratio] 30.0 kg/m2 30.0 k g/m2 [facility] ([facility]) Body weight 191.38 [lb_av] 191.38 [lb_av] [facility] ([facility]) Body height 67 [in_i] 67 [in_i] [facility] ([facility]) 5'7" Diastolic blood pressure 74 mm[Hg] 74 mm[Hg] [facility] ([facility]) Systolic blood pressure 122 mm[Hg] 122 mm[Hg] M [facility] ([facility]) Patient Treatment Plan of Care Planned Activity Planned Date Details Description Data Source (s) Amoxicillin 500 MG Oral Capsule 01/29/2020 12:00:00 AM [facility] Rosuvastatin calcium 5 MG Oral Tablet 08/31/2019 09:00:00 AM [facility] Aspirin 81 MG Oral Tablet 08/31/2019 12:00:00 AM [facility] Multivital 08/31/2019 12:00:00 AM [facility] Losartan Potassium 50 MG 08/31/2019 12:00:00 AM [facility] Levothyroxine Sodium 75 MCG 08/31/2019 12:00:00 AM [facility] Fish Oil 875 MG 08/31/2019 12:00:00 AM EST [facility] ([facility]) Docusate Sodium 100 MG 08/31/2019 12:00:00 AM [facility] Crestor 5 MG 08/31/2019 12:00:00 AM EST N [facility] ([facility]) Calcium 600+D 600-400 MG-UNIT 08/31/2019 12:00:00 AM EST [facility] ([facility]) Aspirin 81 MG 08/31/2019 12:00:00 [facility] Acetaminophen Extra Strength 500 MG 08/31/2019 12:00:00 AM [facility] ([facility]) Osteo Bi-Flex Adv Joint Shield 08/31/2019 12:00:00 AM [facility] ([facility]) Losartan Potassium 25 MG Oral Tablet 08/30/2019 09:00:00 AM [facility] Oxycodone Hydrochloride 5 MG Oral Tablet 08/30/2019 12:00:00 AM [facility] Docusate Sodium 100 MG Oral Capsule 08/30/2019 12:00:00 AM [facility] Acetaminophen 325 MG Oral Tablet 08/30/2019 12:00:00 AM [facility] Oxycodone Hydrochloride 5 MG Oral Tablet 08/28/2019 12:07:03 PM [facility] fentaNYL (SUBLIMAZE) (PF) injection 25 mcg 08/28/2019 12:07:03 PM E [facility] metaxalone 800 MG Oral Tablet 08/28/2019 12:07:03 PM [facility] Bisacodyl 10 MG Rectal Suppository 08/28/2019 12:07:03 PM [facility] Magnesium Hydroxide 80 MG/ML Oral Suspension 08/28/2019 12:07:03 PM [facility] sodium phosphate 67.8 MG/ML / Sodium Phosphate, Monoba sic 185 MG/ML Enema 08/28/2019 12:07:03 PM [facility] Aspirin [address] [facility]
[2020-09-12 02:10] LABS: INR 1.05; PROTHROMBIN TIME 13.9 SECONDS (12.5-14.3)
[2020-09-12 02:11] LABS: PARTIAL THROMBOPLASTIN TIME 31.2 SECONDS (24.2-38.5)
[2020-09-12 02:14] LABS: D-DIMER QUANT 568.95 ng/ml (<500)
[2020-09-12 02:29] LABS: ALBUMIN 3.7 GM/DL (3.2-5.2); ALT/SGPT 18 U/L (12-78); BILIRUBIN,DIRECT 0.1 MG/DL (0.0-0.2); BILIRUBIN,TOTAL 0.4 MG/DL (0.2-1.0); C REACTIVE PROTEIN QUANTITATIV < 0.30 MG/DL (0.00-0.30); FERRITIN 54 NG/ML (8-252); LDH LACTATE DEHYDROGENASE 161 U/L (84-246); NT-PRO BNP 664 PG/ML (<125); TOTAL PROTEIN 6.4 GM/DL (6.4-8.2)
--- NOTE | 2020-09-12 03:02 | HPEPDOC ---
[facility] Medical History & Physical Date of Admission Sep 12, 2020 Date of Service: Sep 12, 2020 Primary Care Physician: CHIOMA FLORIAN DO Attending Physician: BEA CROWE MD History and Physical TIME OF SERVICE: 231 AM CHIEF COMPLAINT: LOC HISTORY OF PRESENT ILLNESS: This 69 yr old F was diagnosed w COVID19 on Aug 20, thereafter she developed dizziness that was associated with ringing in her ears without chest pain, without dyspnea & without palpitations; her PCP Dr.Aaron Florian held her anti- hypertensive meds, nevertheless she continued to feel dizzy and had an episode where she fell, lost consciousness and hit her right eyebrow therefore she came to the hospital for evaluation. EMS noted a HR as low as the 30s while transporting the patient. While in the ER she was noted to have bradycardia w a HR as low as the 40s along with several pauses lasting up to 10 seconds long that were accompanied by dizziness and almost passing out. REVIEW OF SYSTEMS: 12-point review of systems negative except as listed in HPI PAST MEDICAL/ SURGICAL HISTORY: Chronic HTN Hypothyrodism SOCIAL HISTORY: She doesnt smoke, drink or use recreational drugs and is originally from [place] FAMILY HISTORY:HTN ALLERGIES: Please see below. HOME MEDICATIONS: Please see below. PHYSICAL EXAMINATION: Vital Signs Date Time Temp Pulse Resp B/P (MAP) Pulse Ox O2 Delivery O2 Flow Rate FiO2 09/11/20 22:05 98.2 49 16 197/87 100 Room Air GENERAL APPEARANCE: well nourished/well developed HEENT: EOMI / mask covering lower face CARDIOVASCULAR: bradycardic / NMRG /radial pulses intact LUNGS: CTAB on RA ABDOMEN: soft & NT MUSCULOSKELETAL: NCAT / JUAREZ x 4 INTEGUMENT: red brandon at right eyebrow NEUROLOGICAL: speech not dysarthric PSYCHIATRIC: A&O x 3 LABORATORY DATA: 09/11/20 22:57 Immature Granulocyte % (Auto) 0.2, Neutrophils (%) (Auto) 57.5, Lymphocytes (%) (Auto) 29.3, Monocytes (%) (Auto) 9.5H, Eosinophils (%) (Auto) 2.5, Basophils (%) (Auto) 1.0, Neutrophils # (Auto) 3.5, Lymphocytes # (Auto) 1.8, Monocytes # (Auto) 0.6, Eosinophils # (Auto) 0.2, Basophils # (Auto) 0.1, Nucleated Red Blood Cells % (auto) 0.0, Urine Color STRAW, Urine Appearance CLEAR, Urine pH 7.0, Urine Specific [place] 1.008, Urine Protein NEGATIVE, Urine Glucose (UA) NEGATIVE, Urine Ketones 1+H, Urine Blood NEGATIVE, Urine Nitrite NEGATIVE, Urine Bilirubin NEGATIVE, Urine Urobilinogen 0.2, Urine Leukocyte Esterase NEGATIVE, Urine WBC (Auto) 0, Urine RBC (Auto) 1, Urine Hyaline Casts (Auto) 0, Urine Bacteria (Auto) NEGATIVE, Urine Squamous Epithelial Cells 0, Urine Sperm (Auto) , Anion Gap 10, Glomerular Filtration Rate > 60.0, Calcium Level 9.7, Magnesium Level 2.1, Total Creatine Kinase 79, Creatine Kinase MB < 1.0, Creatine Kinase MB Relative Index 1.27, Troponin I < 0.02, Thyroid Stimulating Hormone (TSH) 0.643, Urine Opiates Screen NEGATIVE, Urine Methadone Screen NEGATIVE, Urine Barbiturates Screen NEGATIVE, Urine Phencyclidine Screen NEGATIVE, Urine Amphetamines Screen NEGATIVE, Urine Benzodiazepines Screen NEGATIVE, Urine Cocaine Metabolite Screen NEGATIVE, Urine Cannabinoids Screen NEGATIVE, Ethyl Alcohol Level < 0.003 09/11/20 23:00: Lactic Acid Level 1.9 09/11/20 23:27: Bedside Glucose (Misc Panel) 136H 09/12/20 00:31: Coronavirus (COVID-19)(PCR) POSITIVEA, Influenza Type A (RT-PCR) NEGATIVE, Influenza Type B (RT-PCR) NEGATIVE, Respiratory Syncytial Virus (PCR) NEGATIVE 09/12/20 01:53: Prothrombin Time 13.9, Prothromb Time International Ratio 1.05, Activated Partial Thromboplast Time 31.2, Fibrinogen 242, D-Dimer, Quantitative 568.95H, Ferritin 54, Total Bilirubin 0.4, Direct Bilirubin 0.1, Aspartate Amino Transf (AST/SGOT) 11, Alanine Aminotransferase (ALT/SGPT) 18, Alkaline Phosphatase 32L, Lactate Dehydrogenase 161, C-Reactive Protein, Quantitative < 0.30, OK-Nkr-X-Type Natriuretic Peptide 664H, Total Protein 6.4, Albumin 3.7, Albumin/Globulin Ratio 1.4 IMAGING: Chest xray IMPRESSION: Clear appearing lungs. CT head IMPRESSION: Normal appearing CT scan of the brain. MICROBIOLOGY: COVID 19 + ASSESSMENT: is a 69 yr old w a hx of HTN & Hypothyroidism who was diagnosed w COVID 19 on Aug 20 and developed dizziness that progressed to syncope; she will be admitted for management of symptomatic bradycardia. PLAN: 1. Symptomatic Bradycardia Possible causes include: sick sinus syndrome / idiopathic / cardiac infiltrative dx / COVID related cardiomyopathy ? Plan: admit to PCU / f/u serial troponins to r/o silent SC & EKGs, Echo / per d/w will start Dobutamine drip / will ask RNs to have subcutaneous pacers at bedside/ NPO for possible pacemaker placement / will hold off atropine for now bc there is a high suspicion she has Mobitz type 2 or complete heart block (in this setting atropine wont help increase the heart rate) 2. Hypokalemia Plan: replete K & f/u Mg 3. COVID -19 Test is still positive despite URI symptoms Plan: f/u COVID labs/ c/w droplet precautions 4. Labile BP SBP has ranged from 120s to 180s Plan: will ask day time team to touch base w Cardio on best BP med to resume 5. Hypothyroidism Plan: levothyroxine DVT Px w SCDs Dispo: home after more than 2 midnights stay Home Medications Scheduled Ascorbic Acid (Vitamin C) 500 Mg Tablet, 500 MG PO DAILY Aspirin (Aspirin EC) 81 Mg Tablet.dr 81 MG PO DAILY Calcium Carbonate/Vitamin D3 (Calcium 500-Vit D3 200 Tablet) 1 Each Tablet, 1 TAB PO BID Glucosamine/D3/Boswellia Lisa (Glucosamine Complex Tablet) 1 Each Tablet, 1 TAB PO DAILY Levothyroxine Sodium (Synthroid) 75 Mcg Tablet, 75 MCG PO DAILY Multivitamins (Thera M Plus Tablet) 1 Each Tablet, 1 TAB PO DAILY [place]-3 Fatty Acids/Fish Oil ([place] 3 1,000 mg Softgel) 1 Each Capsule, 1 CAP PO DAILY Rosuvastatin Calcium (Rosuvastatin Calcium) 5 Mg Tablet, 5 MG PO 3XW WEDNESDAY, WEDNESDAY AND WEDNESDAY AT [facility] Ubiquinol (Active-Q) 200 Mg Capsule, 200 MG PO DAILY Allergies Coded Allergies: No Known Allergies (Unverified , 09/11/20) A-FIB/CHADSVASC A-FIB History Current/History of A-Fib/PAF?: No Current PO Anticoag Therapy: No GUY PEARL MD Sep 12, 2020 03:02
[2020-09-12] MEDS ORDERED: DOBUTamine HCL 500,000 MCG in IV 1 EA IV SCH (04:30)
[2020-09-12 05:14] LABS: HEMATOCRIT 40.6 % (36.0-47.0); HEMOGLOBIN 13.5 g/dl (12.0-15.5); MEAN CORPUSCULAR HEMOGLOBIN 30.3 pg (27.0-33.0); MEAN CORPUSCULAR HGB CONC 33.3 g/dl (32.0-36.5); MEAN CORPUSCULAR VOLUME 91.2 fl (80.0-96.0); PLATELET COUNT, AUTOMATED 257 10^3/uL (150-450); RED BLOOD COUNT 4.45 10^6/uL (4.00-5.40); WHITE BLOOD COUNT 6.7 10^3/uL (4.0-10.0)
[2020-09-12 05:37] LABS: BLOOD UREA NITROGEN 12 MG/DL (7-18); CALCIUM LEVEL 9.6 MG/DL (8.8-10.2); CARBON DIOXIDE LEVEL 22 MEQ/L (21-32); CHLORIDE LEVEL 109 MEQ/L (98-107); CREATININE FOR GFR 0.82 MG/DL (0.55-1.30); GLOMERULAR FILTRATION RATE > 60.0 (>45); GLUCOSE, FASTING 138 MG/DL (70-100); POTASSIUM SERUM 4.2 MEQ/L (3.5-5.1); SODIUM LEVEL 142 MEQ/L (136-145)
[2020-09-12 05:37] LABS: PROTHROMBIN TIME 13.4 SECONDS (12.5-14.3)
[2020-09-12 05:38] LABS: PARTIAL THROMBOPLASTIN TIME 31.7 SECONDS (24.2-38.5)
--- NOTE | 2020-09-12 05:40 | ECGEPIP ---
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
--- NOTE | 2020-09-12 05:42 | ECGEPIP ---
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
[2020-09-12] MEDS: ASPIRIN 81 MG ENTERIC TAB PO SCH (08:31)
[2020-09-12] MEDS: LEVOTHYROXINE 75MCG TABLET (0.075MG) PO SCH (08:32)
[2020-09-12] MEDS ORDERED: ceFAZolin SOD 2 GM in IV 1 EA IV ONE (09:00)
[2020-09-12] MEDS ORDERED: LR 1,000 ML IV SCH (09:00)
[2020-09-12] MEDS ORDERED: MIDAZOLAM INJ 2MG/2ML VIAL (J2250 PER 1MG) As Ordered ONE ×2 (12:21→16:44)
[2020-09-12] MEDS ORDERED: MIDAZOLAM INJ 2MG/2ML VIAL (J2250 PER 1MG) IV ONE (12:45)
--- NOTE | 2020-09-12 12:55 | IPNPDOC ---
Text Note Date of Service The patient was seen on 09/12/20. NOTE Subjective: Patient is a 69-year-old female with a PMHx of HTN, Hypothyroidism, Hx of Lyme Disease (s/p 1 month Rx) and COVID-19 (Dx 08/20/2020; not requiring hospitalization) who presented to the ED after she had passed out and hit her head. Upon arrival to emergency room, patient was found to be bradycardic. She was admitted to the hospital service for further evaluation and treatment. Cardiology was called on consultation. Patient was seen and examined at the bedside. Currently patient has a dobutamine drip on patient denies any chest pain, palpitations, shortness of breath, nausea, vomiting, abdominal pain, diarrhea, or urinary discomfort.. He does report feeling lightheaded and dizzy upon any slight movement. Objective: Vitals (See below) General: Lying in bed, comfortable at rest, AAOx3 HEENT: NC, AT CVS: Bradycardic, +S1S2 Lungs: Fair air entry b/l, -w/r/r Abdomen: Soft, ND, NT Extremities: - Edema, - Calf tenderness Assessment and plan: Symptomatic Bradycardia - Patient still reports lightheadedness and dizziness with slight motion - Was unable to tolerate being off of the dobutamine drip - EKG reviewed/telemetry reviewed; there have been documented evidence of high degree AV block greater than 5 seconds - Had required transcutaneous pacing while in the ICU; Versed PRN - Will resume Dobutamine drip / Transcutaneous pacers will remain on patient and be on standby - I have discussed the case with Dr. 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 estate acquisition analyst to OR s/p Hypokalemia COVID -19 - Currently is asymptomatic - Continue with supportive care Elevated BP - likely reactive 2/2 bradycardia - Will continue to monitor for now Hypothyroidism - TSH noted - c/w Levothyroxine DVT prophylaxis - c/w TEDs/Sequentials Disposition: - Plan for pacemaker placement today VS,Fishbone, I+O VS, Fishbone, I+O Laboratory Tests 09/11/20 22:57 09/12/20 05:02 Vital Signs Date Time Temp Pulse Resp B/P (MAP) Pulse Ox O2 Delivery O2 Flow Rate FiO2 09/12/20 12:00 99.0 46 24 115/53 (73) 94 Room Air I&O- Last 24 Hours up to 6 AM 09/12/20 06:00 Intake Total 1060 ml Output Total 1550 ml Balance -490 ml BEA CROWE MD Sep 12, 2020 12:55
[2020-09-12] MEDS ORDERED: LIDOCAINE 2% 100MG/5ML SDV (FOR ANES.) As Ordered ONE (16:43)
[2020-09-12] MEDS ORDERED: propofoL 500 MG/50 ML VIAL As Ordered ONE (16:43)
[2020-09-12] MEDS ORDERED: dexameTHASONE 4 MG/ML 1ML VIAL (J1100 PER 1MG) As Ordered ONE (16:43)
[2020-09-12] MEDS ORDERED: ONDANSETRON 4MG/2ML VIAL As Ordered ONE (16:43)
[2020-09-12] MEDS ORDERED: fentaNYL 100 MCG/2 ML INJECTION (J3010) As Ordered ONE (16:44)
[2020-09-12] MEDS ORDERED: AMIODARONE 150MG/3ML INJ (J0282) As Ordered ONE (16:45)
[2020-09-12] MEDS ORDERED: LIDOCAINE 1% SDV 30ML VIAL As Ordered ONE (16:45)
[2020-09-12] MEDS ORDERED: ISOVUE-300 61% 50ML VIAL As Ordered ONE (16:45)
[2020-09-12] MEDS ORDERED: BACITRACIN PWD 50,000 UNITS VIAL As Ordered ONE (16:46)
[2020-09-12] MEDS ORDERED: ceFAZolin 2 GM/D5W 50 ML IV BAG (J0690 PER 500MG) As Ordered ONE (17:14)
[2020-09-12] MEDS ORDERED: PHENYLephrine 500MCG 5ML (100MCG/ML) SYRINGE As Ordered ONE (18:14)
[2020-09-12] MEDS ORDERED: ONDANSETRON 4MG/2ML VIAL IV PRN (19:15)
[2020-09-12] MEDS ORDERED: fentaNYL 100 MCG/2 ML INJECTION (J3010) IV PRN (19:15)
[2020-09-12] MEDS ORDERED: oxyCODONE 5MG TAB PO PRN (19:15)
--- NOTE | 2020-09-12 19:51 | REP ---
INDICATION: POST OP IN PACU. COMPARISON: Comparison 09/11/2020 also portable TECHNIQUE: Portable FINDINGS: Since the last examination a dual chamber bipolar pacemaker device has been placed. The leads are contiguous and appropriate. The lung herr are clear and unchanged. The pleural angles are sharp. The heart is not enlarged. There is no change in the osseous structures. IMPRESSION: No acute cardiopulmonary disease. Findings as described above. <Electronically signed by Darren Corona > 09/12/20 1941
--- NOTE | 2020-09-12 20:24 | RO ---
OPERATIVE NOTE DATE OF OPERATION: 09/12/2020 PREOPERATIVE DIAGNOSIS: 1. Intermittent complete heart block with recurrent syncope. 2. Abnormal EKG - history of left anterior hemiblock and right bundle branch block. POSTOPERATIVE DIAGNOSIS: 1. Intermittent complete heart block with recurrent syncope. 2. Abnormal EKG - history of left anterior hemiblock and right bundle branch block. PROCEDURE: Implantation of permanent dual-chamber pacemaker. IMPLANTING BLOOD COORDINATOR: Ivan Bell M.D. WELDING MACHINE OPERATOR HELPER GAS: ANESTHESIOLOGIST: Dr. Santacruz ANESTHESIA: Monitored local anesthesia. CLINICAL SUMMARY: This 69-year-old, resident of [place], [place], has a history of dating back to at least on April 27, 2018 of left anterior hemiblock and right bundle branch block but only started having recurrent syncopal spells the past two weeks. She finally presented to the emergency room last yesterday evening following her fourth collapse. Initial vital signs revealed a heart rate of 42 beats per minute, blood pressure 123/87 and respiratory rate 16 with O2 saturation 100% on room air. She was afebrile. Her EKG showed underlying sinus rhythm with 2:1 AV conduction with conducted QRS complexes associated with a marked first degree hemiblock. Unfortunately, this was initially read by the computer and the emergency room physician as sinus bradycardia, not noting the P-wave that was buried in the ST segment of the preceding QRS complex. Her axis was negative, consistent with left anterior hemiblock and she also had right bundle branch block. Serial EKGs did not show any evolutionary repolarization change. Serial troponin I levels were negative. Thyroid function was normal. She was on no negative chronotropic therapy. In light of her bradycardia, she was admitted to the intensive care unit on low dose dobutamine. When this was attempted to be discontinued this morning, a five second ventricular asystolic pause was observed with only P waves. In light of this, cardiology consultation was placed for a permanent pacemaker implant. Following preauthorization with the patient in the fasting state having signed informed consent and having received Ancef 2 gm IV premedication, she was taken to the operating theater. DESCRIPTION OF PROCEDURE: In the operating room, she was connected to a bedside cardioverter defibrillator/noninvasive pacing with self-adhesive pacing pads in an anteroposterior configuration. Number skin electrodes were also applied to facilitate continuous electrocardiographic monitoring. The left subclavian region was prepped and draped in the usual fashion. The skin was infiltrated with 1% Xylocaine and the left axillary vein was catheterized using the micropuncture technique. A 5 cm linear incision was then made several cm below and parallel to the left clavicle. Dissection was carried down to the level of the pectoralis fascia and the pocket was fashioned below the level of the incision line. Two bipolar screw-in active fixation, steroid-eluting pacing leads were the positioned to the right ventricular apex and mid-right atrial free wall under fluoroscopic and electrocardiographic control. The right ventricular lead ([employer], model number [id number], serial number [id number]) measurements were focal and stimulation thresholds 0.8 V/0.4 ms/impedance 774 ohms. The R wave amplitude measured 5.5 mV these pacing thresholds had significantly improved by the time she reached the recovery room. Unfortunately, she no longer has any spontaneous ventricular activity. The atrial lead ([employer], model number [id number], serial number [id number]) measurements were: Stimulating threshold 1.0 V/0.4 ms/impedance 488 ohms. The P-wave amplitude was 2.8 mV. These leads were secured in position with sleeve suture at their insertion site and then they were connected to a dual-chamber pulse generator ([employer], model number [id number], serial number [id number]) and appropriate DDD pacing was documented. This system is MRI compatible. The pulse generator was placed in the pocket and secured in position with a suture through the upper right-hand corner of the epoxy header. The subcutaneous tissues were approximated using a running Chromic suture and the skin was closed using georgie. A dry dressing was applied and the patient was returned to the recovery room in good condition. No apparent complications. ESTIMATED BLOOD LOSS: Approximately 10 ml Postoperative portable upright chest x-ray showed good lead position with no pneumothorax. Her EKG showed underlying sinus rhythm at 81 BPM with consistent atrial sensing and tracking with consistent ventricular pacing. Ventricular paced complexes had a leftward axis and LBBB configuration in keeping with RV apical stimulation. Our plan is to monitor her overnight on telemetry. She will receive an additional three doses of Ancef 1 gm q.8h. A follow-up PA and left lateral chest x-ray will be obtained in the morning along with followup EKG. We are confident she will be able to discharged tomorrow afternoon.
[2020-09-13] VITALS (8 sets, daily range): BP systolic 97–132; BP diastolic 52–75
[2020-09-13] MEDS: ceFAZolin SOD 1 GM in D5W MINI-BAG PLUS 50 ML IV SCH ×2 (00:01→10:16)
[2020-09-13 05:10] LABS: HEMOGLOBIN 12.3 g/dl (12.0-15.5); MEAN CORPUSCULAR HEMOGLOBIN 30.8 pg (27.0-33.0); MEAN CORPUSCULAR HGB CONC 33.2 g/dl (32.0-36.5); MEAN CORPUSCULAR VOLUME 92.5 fl (80.0-96.0); PLATELET COUNT, AUTOMATED 220 10^3/uL (150-450); WHITE BLOOD COUNT 9.4 10^3/uL (4.0-10.0)
[2020-09-13 05:33] LABS: BLOOD UREA NITROGEN 14 MG/DL (7-18); CALCIUM LEVEL 8.9 MG/DL (8.8-10.2); CARBON DIOXIDE LEVEL 23 MEQ/L (21-32); CHLORIDE LEVEL 108 MEQ/L (98-107); CREATININE FOR GFR 0.69 MG/DL (0.55-1.30); GLOMERULAR FILTRATION RATE > 60.0 (>45); GLUCOSE, FASTING 144 MG/DL (70-100); MAGNESIUM LEVEL 2.1 MG/DL (1.8-2.4); POTASSIUM SERUM 4.1 MEQ/L (3.5-5.1); SODIUM LEVEL 140 MEQ/L (136-145)
--- NOTE | 2020-09-13 08:26 | REP ---
INDICATION: Post pacemaker implant COMPARISON: 09/12/2020 TECHNIQUE: PA and lateral. FINDINGS: The mediastinum and cardiac silhouette are normal. Pacemaker in satisfactory position. The lung herr are clear and without acute consolidation, effusion, or pneumothorax. The skeletal structures are intact and normal. IMPRESSION: No acute cardiopulmonary process. <Electronically signed by Max Gann > 09/13/20 [id number]
[2020-09-13] MEDS: LEVOTHYROXINE 75MCG TABLET (0.075MG) PO SCH (10:16)
[2020-09-13] MEDS: ASPIRIN 81 MG ENTERIC TAB PO SCH (10:16)
--- NOTE | 2020-09-13 10:51 | DS.PDOC ---
Discharge Summary General Date of Admission Sep 12, 2020 at 00:59 Date of Discharge 09/13/2020 Discharge Summary PROCEDURES PERFORMED DURING STAY: Pacemaker placement with Dr. Bell on 09/12/2020 ADMITTING DIAGNOSES / DISCHARGE DIAGNOSES: s/p Symptomatic Bradycardia - 2/2 High degree AV block Outpatient imaging CTA chest s/p Hypokalemia COVID -19 Elevated BP Hypothyroidism DVT prophylaxis COMPLICATIONS/CHIEF COMPLAINT: Syncope HISTORY OF PRESENT ILLNESS: Patient is a 69-year-old female with a PMHx of HTN, Hypothyroidism, Hx of Lyme Disease (s/p 1 month Rx) and COVID-19 (Dx 08/20/2020; not requiring hospitalization) who presented to the ED after she had passed out and hit her head. Upon arrival to emergency room, patient was found to be bradycardic. She was admitted to the hospital service for further evaluation and treatment. Cardiology was called on consultation. HOSPITAL COURSE: s/p Symptomatic Bradycardia - 2/2 High degree AV block - Resolution of light-headedness and weakness - s/p dobutamine drip and s/p Transcutaneous pacing - EKG reviewed/telemetry reviewed; there have been documented evidence of high degree AV block greater than 5 seconds - Dr. Bell on consultation; s/p Pacemaker placement on 09/12 - Has been ambulatory - Cleared by cardiology for DC home with outpatient follow Outpatient imaging CTA chest - I had a discussion with patient about imaging that was completed as an outpatient - Patient had reported that there was a possibility of nodules - Reviewed imaging with pulmonology; would recommend outpatient follow up with pulmonology for likely repeat imaging in 3-6 months; allowing time for inflammatory changes from COVID to resolve s/p Hypokalemia COVID -19 - Currently is asymptomatic - Continue with supportive care s/p Elevated BP - likely reactive 2/2 bradycardia - SBP normalized now Hypothyroidism - TSH noted - c/w Levothyroxine DVT prophylaxis - c/w TEDs/Sequentials DISCHARGE MEDICATIONS: Please see below. ALLERGIES: Please see below. PHYSICAL EXAMINATION ON DISCHARGE: Vitals (See below) General: Standing up and ambulating to chair, appears comfortable, AAOx3 HEENT: NC, AT CVS: +S1S2 Lungs: Fair air entry b/l, no appreciable wheezing, rhonchi or rales Abdomen: Soft, ND, NT Extremities: No evidence of edema, - Calf tenderness LABORATORY DATA: Please see below. ACTIVITY: [As tolerated]. DISCHARGE PLAN: Follow-up with primary care provider, cardiology and pulmonology within the next 7 days Remain compliant with treatment plan and medications Return to the ER if you experience any problems DISPOSITION: Home DISCHARGE CONDITION: [Stable]. TIME SPENT ON DISCHARGE: 35 minutes. Vital Signs/I&Os Vital Signs Date Time Temp Pulse Resp B/P (MAP) Pulse Ox O2 Delivery O2 Flow Rate FiO2 09/13/20 06:00 65 16 114/64 (81) 98 Nasal Cannula 2.0 09/13/20 04:00 98.5 I&O- Last 24 Hours up to 6 AM 09/13/20 06:00 Intake Total 2013.94 ml Output Total 815 ml Balance 1198.94 ml Laboratory Data Labs 24H Laboratory Tests 2 09/12/20 13:54: Troponin I < 0.02 09/12/20 19:36: Troponin I 0.06# 09/13/20 04:44: Nucleated Red Blood Cells % (auto) 0.0, Anion Gap 9, Glomerular Filtration Rate > 60.0, Calcium Level 8.9, Magnesium Level 2.1 CBC/BMP Laboratory Tests 09/13/20 04:44 Discharge Medications Scheduled Ascorbic Acid (Vitamin C) 500 Mg Tablet, 500 MG PO DAILY, (Reported) Aspirin (Aspirin EC) 81 Mg Tablet.dr, 81 MG PO DAILY, (Reported) Calcium Carbonate/Vitamin D3 (Calcium 500-Vit D3 200 Tablet) 1 Each Tablet, 1 TAB PO BID, (Reported) Glucosamine/D3/Boswellia Lisa (Glucosamine Complex Tablet) 1 Each Tablet, 1 TAB PO DAILY, (Reported) Levothyroxine Sodium (Synthroid) 75 Mcg Tablet, 75 MCG PO DAILY, (Reported) Multivitamins (Thera M Plus Tablet) 1 Each Tablet, 1 TAB PO DAILY, (Reported) [place]-3 Fatty Acids/Fish Oil ([place] 3 1,000 mg Softgel) 1 Each Capsule, 1 CAP PO DAILY, (Reported) Rosuvastatin Calcium (Rosuvastatin Calcium) 5 Mg Tablet, 5 MG PO 3XW, (Reported) WEDNESDAY, WEDNESDAY AND WEDNESDAY AT [facility] Ubiquinol (Active-Q) 200 Mg Capsule, 200 MG PO DAILY, (Reported) Allergies Coded Allergies: No Known Allergies (Unverified , 09/11/20) BEA CROWE MD Sep 13, 2020 10:51
--- NOTE | 2020-09-13 16:59 | ECGEPIP ---
[facility] Test Date: 2020-09-13 Pat Name: RAMIRO SU Department: Room: [place] [address] Gender: Female Talent Partner: KIM : 1950 Requested By: Ivan Bell Order Number: [id number] Reading MD: Ivan Bell Measurements Intervals [place] Rate: 68 P: 15 NV: 200 QRS: -71 QRSD: 172 T: 99 QT: 496 QTc: 529 Interpretive Statements Normal sinus rhythm Atrial sensing and tracking with consistent ventricular pacing Paced QRS complexes with leftward axis and LEFT BUNDLE BRANCH BLOCK configuration in keeping with RV apical stimulation Slower rate but otherwise unchanged from 09/12/20 Electronically Signed on 09-13-2020 16:59:38 EST by Ivan Bell
--- NOTE | 2020-09-13 16:59 | ECGEPIP ---
[facility] Test Date: 2020-09-12 Pat Name: RAMIRO SU Department: Room: [place] [address] Gender: Female Wireless Sales Consultant: KELTON : 1950 Requested By: Ivan Bell Order Number: [id number] Reading MD: Ivan Bell Measurements Intervals [place] Rate: 81 P: 20 AR: 179 QRS: -71 QRSD: 182 T: 93 QT: 487 QTc: 566 Interpretive Statements Normal sinus rhythm Atrial sensing and tracking with consistent ventricular pacing Paced QRS complexes with left axis and LEFT BUNDLE BRANCH BLOCK configuration in keeping with RV apical stimulation Pacing new from earlier the same day Electronically Signed on 09-13-2020 16:58:50 EST by Ivan Bell
[2020-09-13] MEDS ORDERED: ROSUVASTATIN 10 MG TAB (CRESTOR) PO SCH (21:00)
--- NOTE | 2020-09-16 10:06 | ECHO ---
DATE OF PROCEDURE: 09/12/2020 Age: 69 Gender: Female Height: 175 cm Weight: 91 kg REFERRING PHYSICIAN: Comfort Fernandez MD INDICATION: Syncope. MEASUREMENTS: IVS 0.8 cm LV 4.9 cm LVPW 1.8 cm LA 3.4 cm Aorta 3.0 cm RV 3.6 cm IVC 2.3 cm FINDINGS: This study is of good technical quality. Underlying sinus rhythm with variable degree of AV block and wide QRS complex. Left ventricle is of normal size and normal systolic function, I estimate the EF around 65% to 70%. Right ventricle is also of normal size and systolic function. Both atria appear normal. Aortic valve is tricuspid. It is mildly sclerotic, but mobility is preserved. Mitral and tricuspid valves appear normal. Pulmonic valve was poorly visualized. No pericardial effusion is noted. Inferior vena cava is dilated, but does collapse with inspiration indicative of mildly elevated central venous pressure. Aortic root is normal. Aortic arch and abdominal aorta were not well seen. Doppler interrogation of the aortic valve revealed no significant stenosis or insufficiency. There is trace mitral and trace tricuspid insufficiency. Calculated pulmonary artery pressure is probably on the border between normal and mildly elevated values around 30 mmHg. Mitral inflow pattern and tissue Doppler imaging were not diagnostic of diastolic function due to variable AV conduction. CONCLUSIONS: 1. Study is of good technical quality, underlying sinus rhythm with variable degree of AV block and wide QRS complex. 2. Normal LV size and systolic function, unable to estimate diastolic function. 3. No hemodynamically significant valvular disease. 4. Suggestive of elevated central venous pressure and borderline pulmonary hypertension. COMMENTS: The imaging part of the study does not provide any obvious explanation for syncopal event, but it appears the patient has significant conduction system disease, which is the likely etiology. MTDD
== END 2020-09-13 12:40 | disposition home or self-care (01) | DRG 242 ==
LOC: M ED 22:00 → M ED INP 09-12 00:59 → M ICU 09-12 04:51
PROVIDERS: ADMIT Internal Medicine; ATTEND Internal Medicine
PROC: 02H63JZ Insertion of Pacemaker Lead into Right Atrium, Percutaneous Approach (ICD-10-PCS; 2020-09-12)
PROC: 02HK3JZ Insertion of Pacemaker Lead into Right Ventricle, Percutaneous Approach (ICD-10-PCS; 2020-09-12)
PROC: 0JH606Z Insertion of Pacemaker, Dual Chamber into Chest Subcutaneous Tissue and Fascia, Open Approach (ICD-10-PCS; principal; 2020-09-12 16:00)
DX: I44.2 Atrioventricular block, complete (principal); U07.1 COVID-19; E03.9 Hypothyroidism, unspecified; E11.9 Type 2 diabetes mellitus without complications; Z79.899 Other long term (current) drug therapy; I10 Essential (primary) hypertension; E87.6 Hypokalemia; Z79.82 Long term (current) use of aspirin

== ENCOUNTER 2020-10-10 20:57 | Emergency (ER) | payer MEDICARE ==
[~2020-10-10] VITALS: Ht 175.3 cm; Wt 84.6 kg
[~2020-10-10 20:57] MED LIST changes: +ASPI-161 PO; +C 50TAB PO; +CALC500T44 PO; +GLUCTAB64 PO; +OMEG100011 PO; +UBIQ200C PO; +VITMTA PO
--- OUTSIDE RECORDS SUMMARY | 2020-10-10 21:02 | CCD | Continuity of Care Document ---
Author Author Key LORENZANA MD Organization Unknown Address [id number] [place] [address], [facility] [place] [address] Phone [phone] Care Team Providers Care Geology Technician Name Role Phone Rosie Dao DO AUTM Problems Active Problems Provider Date Electrocardiogram abnormal Ellis Lorenzana MD Onset: 05/19 Essential hypertension Ellis Lorenzana MD Onset: 7 Hyperlipidemia Ellis Lorenzana MD Onset: 05/19/2017 Overweight Ellis Lorenzana MD Onset: 05/19/2017 Right bundle branch block AND left anterior fascicular block Ellis Lorenzana MD Onset: 05/19/2017 Cardiac pacemaker in situ MADELYN Vincent Onset: 12/2020 Social History Type Date Description Comments Sex Unknown ETOH Use Occasionally consumes alcohol Tobacco Use Start: Unknown Patient has never smoked Exercise Type/Frequency Does housework daily Exercise Type/Frequency Walks daily Exercise Limitations Orthopedic Problem Allergies, Adverse Reactions, Alerts Description No Known Drug Allergies Medications Active Medications SIG Qnty Indications Ordering Provide r Date [place] 3-6-9 1200mg Capsules 2 by mouth every day Ellis Lorenzana MD 05/19/2017 Aspirin Ec 81mg Tablets DR 1 by mouth every day Unknown 05/18/2017 Turmeric Curcumin 500mg Capsules 1 by mouth twice a day Unknown 05/18/2017 Ubiquinol 100mg Capsules 2 cap by mouth every day Unknown 05/18/2017 Osteo Bi-Flex Advanced Triple Strength Tablets 2 by mouth daily Unknown 05/18/2017 Vitamin C 1000mg Tablets 1 by mouth twice a day Unknown 05/18/2017 Crestor 5mg Tablets 1 by mouth twice a week Unknown 05/18/2017 Losartan Potassium 50mg Tablets 1 by mouth every day Unknown 05/18/2017 Levothyroxine Sodium 75mcg Tablets 1 by mouth every day Unknown 05/18/2017 Ultra Woman Tablets ER 1 tab po daily Unknown 05/18/2017 Vitamin D (Cholecalciferol) 1000Unit Tablets 4 by mouth every day Unknown 017 Magnesium Oxide 500mg Tablets 1 by mouth every day Unknown 05/18/2017 Voltaren 1% Gel apply as d irected daily Unknown 05/18/2017 Immunizations Description No Information Available Vital Signs Date Vital Result Comment 05/19/2017 10:59am Weight 192.00 lb Home Weight 190lb home weight Height 69 inches 5'9" BMI (Body Mass Index) 28.4 kg/m2 Heart Rate 74 /min BP Systolic Sitting 142 mmHg adult cuff, Ra BP Diastolic Sitting 86 mmHg adult cuff, Ra Results Test Acquired Date Facility Test Result H/L Range Note CMP 09/09/2020 [facility] - not interfaced (315)- - Albumin Serum/Plasma 3.8 Alt - SGPT 16 Calcium Ser/Plasma Mass/Vol 10.0 Carbon Dioxide Ser/Plasm 90 Chloride Serum/Plasma 100 Alkaline Phosphatase 39 Potassium 4.9 Protein Total 6.7 Sodium 139 Ast - Sgot 5 BUN - Urea Nitrogen 16 Glucose 110 High 70-100 Creatinine For GFR 0.83 Lipid Profile/Cardiac Risk Pro 09/09/2020 [facility] - not interfaced (315)- - Triglycerides 68 <150 Cholesterol 307 High <200 HDL 68 >40.0 LDL Cholesterol 225 Chol/HDL Ratio 4.514 <5 Laboratory test finding 09/09/2020 [facility] - not interf aced (315)- - D-Dimer QN 519.01 CBC without Differential 09/09/2020 [facility] - not inter faced (315)- - White Blood Count 4.8 4.0-10.0 Red Blood Count 4.51 4.00-5.40 Platelets 256 150-450 Hemoglobin 13.8 Hematocrit 41.8 Laboratory test finding 09/09/2020 [facility] - not interf aced (315)- - Hemoglobin A1c 5.4 Thyroid Stimulating Hormone 0.387 Free T4 1.46 Procedures Description No Information Available Medical Devices Description No Information Available Encounters Type Date Location Provider Dx Diagnosis Office Visit 09/20/2020 12:45p Main Office MADELYN Vincent Z95 .0 Presence of cardiac pacemaker Assessments Date Code Description Provider 09/20/2020 Z95.0 Presence of cardiac pacemaker Ca MADELYN Frost Plan of Treatment Future Appointment(s):* 10/18/2020 9:30 am - MADELYN Vincent at Main Office * 11/11/2020 3:15 pm - Ivan Bell MD at Main Office 09/20/2020 - MADELYN Vincent* Z95.0 Presence of cardiac pacemaker* Recommendations:* Recommendations: 1. You may resume driving and may shower tomorrow. 2. Do not soak in a bath tub or hot tub for another week. 3. Continue to limit the use of your left arm for another week - no lifting your shoulder above 90 degrees and no lifting, pulling or pushing more than 10 lbs. * All * Follow up:* 1 month pacer check Follow-up with Dr. Bell as scheduled Functional Status Functional Condition Comment Date Status Independent with all ADL's Activ e Mental Status Description No Information Available Referrals Description No Information Available
--- OUTSIDE RECORDS SUMMARY | 2020-10-10 21:02 | CCD | Continuity of Care Document ---
Author Author Key DAOO . Organization Unknown Address [address] [place] [address] Phone [phone] Care Team Providers Care Insurance And Financial Services Agent Name Role Phone Rosie Dao D.O. AUTM [phone] Vladimir Nelson D.O. AUTM [phone] Problems Active Problems Provider Date Essential hypertension [...] Rosie Dao D.O. Onset: 2014 Mixed hyperlipidemia Rosie Dao D.O. Onset: 02/21 Screening mammography Rosie Dao D.O. [...] SIG Qnty Indications Ordering Provide r Date Losartan Potassium 50mg Tablets 1 by mouth every day Rosario PachecoOYeyo 09/17 Bone Broth Protein Rosario ChongOYeyo 05/12/2017 Rosuvastatin Calcium 5mg Tablets take 1 tablet every other day 90tabs E78.2 Rosario PachecoO Yeyo 04/09/2016 Calcium 600+D [id number] Table ts 1 by mouth daily 30tabs E55.9 Liu Pacheco.O. 01/07 Aspir-[address] 1 by [...] morning 30tabs I10 Rosie Dao D.O. 08/20 - 09/10/2020 Medications Administered in Office Medication SIG Qnty Indications Ordering Provider Date Immunization Administration Single Or Co mbination Injection MADELYN Chris 0 09/06/2017 Immunization Administration Single Or Co mbination Injection Nurse 7 Immunization Administration Single Or Co mbination Injection Rosie Dao D.O. 08/29/2014 Immunizations CPT Code Status Date Vaccine Lot # [id number] Given 06/24/2018 Influenza Virus Vaccine, Quadrivalent, Split, Preservative Free [id number] Given 09/06/2017 Pneumococcal Con jugate Vaccine 13 Valent For Intramuscular Use [id number] Given 06/21/2017 Influenza Vaccin e Quadrivalent Preser/Antibiotic Free Im Use [id number] U-Flu Given 06/23/2016 Influenza,Unspecified [id number] Given 08/29/2014 Tetanus, Diphthe gee Toxoids/Acellular Pertussis Vaccine 7 Or > [id number] Vital Signs Date Vital Result Comment 09/17/2020 3:01pm BP Systolic 142 mmHg BP Diastolic 90 mmHg Height 67 inches 5'7" Weight 189.00 lb BMI (Body Mass Index) 29.6 kg/m2 Heart Rate 78 /min Respiratory Rate 18 /min Body Temperature 98.8 F O2 % BldC Oximetry 97 % Nelson Body Weight 135 lb 09/10/2020 10:55am BP Systolic 160 mmHg BP Diastolic 72 mmHg Height 67 inches 5'7" Weight 191.00 lb BMI (Body Mass Index) 29.9 kg/m2 Heart Rate 100 /min Respiratory Rate 14 /min Body Temperature 98.0 F O2 % BldC Oximetry 98 % Nelson Body Weight 135 lb Results Test Acquired Date Facility Test Result H/L Range Note Laboratory test finding 09/11/2020 [facility] Outpatient T esting (Registration) [address] [place] [address] [phone] Ethyl Alcohol (Ethanol) < 0.003 % Normal 0.000-0. 010 Thyroid Stimulating Hormone 0.643 uIU/ML Normal 0.358-3.740 Magnesium Level 2.1 mg/dL Normal 1.8-2.4 Basic Metabolic Profile 09/11/2020 [facility] Outpatient T esting (Registration) [address] [place] [address] [phone] Glucose, Fasting 129 mg/dL High 70-100 Blood Urea Nitrogen 19 mg/dL High 7-18 Creatinine For GFR 0.88 mg/dL Normal 0.55-1.30 Glomerular Filtration Rate > 60.0 Normal >45 1 Sodium Level 139 mEq/L Normal 136-145 Potassium Serum 3.3 mEq/L 3.5-5.1 Chloride Level 105 mEq/L Normal 98-107 Carbon Dioxide Level 24 mEq/L Normal 21-32 Anion Gap 10 mEq/L Normal 8-16 Calcium Level 9.7 mg/dL Normal 8.8-10.2 Cardiac Marker Panel 09/11/2020 [facility] Outpatient Test ing (Registration) [address] [place] [address] [phone] CPK Creatine Phosphokinase 79 U/L Normal 26-19 2 CK-MB Value Mass < 1.0 NG/ML Normal <3.6 MB/CK Relative Index 1.27 Normal < Or =4 2 Troponin I < 0.02 NG/ML Normal < 0.10 3 Drug Eval Toxicology ED Only 09/11/2020 [facility] Outpati ent Testing (Registration) [address] [place] [address] [phone] Amphetamines Level Urine NEGATIVE Normal Negativ e Barbiturates Urine NEGATIVE Normal Negative Benzodiazepines Urine NEGATIVE Normal Negative Cannabinoids Urine NEGATIVE Normal Negative Cocaine Metabolite Urine NEGATIVE Normal Negative Methadone Urine NEGATIVE Normal Negative Opiates Urine NEGATIVE Normal Negative Phencyclidine Urine NEGATIVE Normal Negative 4 Ua W/ Reflex To Culture 09/11/2020 [facility] Outpatient T andersoning (Registration) [address] [place] [address] [phone] Appearance, Urine RFX CLEAR Normal Clear Color, Urine RFX STRAW Normal Yellow PH,Urine RFX 7.0 units Normal 5.0-9.0 Specific [place]am Ur Auto RFX 1.008 Normal 1.002-1.035 Protein, Urine Auto RFX NEGATIVE mg/dL Normal Negative Glucose, Urine (Ua) Auto RFX NEGATIVE mg/dL Normal Negative Ketone, Urine Auto RFX 1+ mg/dL High Negative Urobilinogen, Urine Auto RFX 0.2 mg/dL Normal 0.0-2.0 Bilirubin, Urine Auto RFX NEGATIVE Normal Negative Nitrite, Urine Auto RFX NEGATIVE Normal Negative Leukocyte Esterase Ur Auto RFX NEGATIVE Normal Negative Blood, Urine Blood RFX NEGATIVE Normal Negative WBC, Urine Auto RFX 0 /HPF Normal 0-3 RBC, Urine Auto RFX 1 /HPF Normal 0-3 Bacteria, Urine Auto RFX NEGATIVE Normal Negative Squam Epithelial Cell Ur Aurfx 0 /HPF Normal 0-6 Hyaline Cast, Urine Auto RFX 0 /LPF Normal 0-1 CBC With Differential 09/11/2020 [facility] Outpatient Radha alvarado (Registration) [address] [place] [address] [phone] White Blood Count 6.1 10 Normal 4.0-10.0 Red Blood Count 4.20 10 Normal 4.00-5.40 Hemoglobin 12.9 g/dL Normal 12.0-15.5 Hematocrit 38.7 % Normal 36.0-47.0 Mean Corpuscular Volume 92.1 fl Normal 80.0-96.0 Mean Corpuscular Hemoglobin 30.7 pg Normal 27.0-33.0 Mean Corpuscular HGB Conc 33.3 g/dL Normal 32.0-36.5 Red Cell Distribution Width 14.6 % High 11.5-14.5 Platelet Count, Automated 241 10 Normal 150-450 Neutrophils % 57.5 % Normal 36.0-66.0 Lymph % 29.3 % Normal 24.0-44.0 Jewell % 9.5 % High 0.0-5.0 Eos % 2.5 % Normal 0.0-3.0 Baso % 1.0 % Normal 0.0-1.0 Immature Granulocyte % 0.2 % Normal 0-3.0 Nucleated Red Blood Cell % 0.0 % Normal 0-0 Neutrophils # 3.5 10 Normal 1.5-8.5 Lymph # 1.8 10 Normal 1.5-5.0 Jewell # 0.6 10 Normal 0.0-0.8 Eos # 0.2 10 Normal 0.0-0.5 Baso # 0.1 10 Normal 0.0-0.2 Laboratory test finding 09/11/2020 [facility] Outpatient T esting (Registration) [address] [place] [address] [phone] Lactic Acid Sepsis Protocol 1.9 mmol/L Normal 0.4- 2.0 5 Laboratory test finding 09/11/2020 [facility] Outpatient T esting (Registration) [address] [place] [address] [phone] Bedside Glucose 136 mg/dL High 80-115 CBC With Differential 09/09/[address] [address] [phone] White Blood Count 4.8 10 Normal 4.0-10.0 [...] 36.0-66.0 Lymph % 32.6 % Normal 24.0-44.0 Jewell % 8.9 % High 0.0-5.0 Eos % 3.1 % High 0.0-3.0 Baso % 1.0 % Normal 0.0-1.0 Immature Granulocyte % 0.2 % Normal 0-3.0 Nucleated Red Blood Cell % 0.0 % Normal 0-0 Neutrophils # 2.6 10 Normal 1.5-8.5 Lymph # 1.6 10 Normal 1.5-5.0 Jewell # 0.4 10 Normal 0.0-0.8 Eos # 0.2 10 Normal 0.0-0.5 Baso # 0.1 10 Normal 0.0-0.2 Laboratory test finding 09/09/[address] [id number] [phone] Total 25(Oh) Vitamin D 67.0 NG/ML Normal 30.0-100. 0 FT4&TSH Panel 09/09/2020 [facility] nter [address] [place] [address] [phone] Thyroid Stimulating Hormone 0.387 uIU/ML Normal 0. 358-3.740 Free T4 1.46 ng/dL Normal 0.76-1.46 Comprehensive Metabolic Profil 09/09/[address] [address] [phone] Glucose, Fasting 110 mg/dL High 70-100 Blood Urea Nitrogen 16 mg/dL Normal 7-18 Creatinine For GFR 0.83 mg/dL Normal 0.55-1.30 Glomerular Filtration Rate > 60.0 Normal >45 6 Sodium Level 139 mEq/L Normal 136-145 Potassium [...] Ratio 1.3 Normal 1.2-2.2 Hemoglobin A1c 09/09/[address] [address] [phone] Hemoglobin A1c 5.4 % Normal 7 Estimated Average Glucose 108 mg/dL Normal 60-110 Lipid Panel 09/09/2020 [facility] nter [address] [place] [address] [phone] Triglycerides Level 68 mg/dL Normal <150 Cholesterol Level 307 mg/dL High <200 HDL Cholesterol 68 mg/dL Normal >40 LDL Cholesterol 225 mg/dL High <100 Non-HDL-C 239 mg/dL Normal Cholesterol Risk Ratio 4.514 Normal <5 Laboratory test finding 09/09/2020 [facility] [address] [place] [address] [phone] D-Dimer Quant 519.01 ng/ml High <500 Respiratory Panel 08/20/2020 [facility] nter [address] [place] [address] [phone] Respiratory Panel This respiratory <SEE NOTE> 8 1 Units are mL/min/1.73 m2 Chronic Kidney Disease Staging per NKF: Stage I & II GFR >=60 Normal to Mildly Decreased Stage III GFR 30-59 Moderately Decreased Stage IV GFR 15-29 Severely Decreased Stage V GFR <15 Very Little GFR Left ESRD GFR <15 on [facility] [employer] [facility] 2 DIAGNOSIS CRITERIA MMB ng/ml Relative Index (RI) NON-AMI < or = 5 N/A PANIAGUA ZONE > 5 < or = 4 AMI > 5 > 4 3 Troponin I Reference Interva l for [place] LOCI: 99th Percentile= 0.00-0.045 ng/ml Risk Stratification: <= 0.10 ng/ml Decreased Risk for Adverse Clinical Events. 0.10-1.50 ng/ml Increased Risk for Adv erse Clinical Events. Evaluation of additional criterion and/or repeat testing in 2-6 hours is suggested to rule out myocardial damage. >= 1.50 ng/ml Indicative of Myocardial Injury. 4 ALL PRESUMPTIVE POSITIVE FINDINGS ARE UNCONFIRMED THRESHOLD IN NG/ML AMPHETAMINES/METHAMPHET 1000 BARBITURATES 200 BENZODIAZEPINES 200 CANNABINOIDS (THC) 50 COCAINE METABOLITE 300 METHADONE 300 OPIATES 300 PHENCYCLIDINE 25 RESULTS ARE FOR MEDICAL PURPOSES ONLY. ALL URINE SPECIMENS WILL BE SAVED FOR 3 DAYS. IF CONFIRMATION OF A PRESUMPTIVE POSITIVE SCREEN RESULT IS DESIRED, CALL CHEMISTRY ([phone]) AND REQUEST URINE TO BE SENT TO REFERENCE LAB. FOR A LIST OF CLOSELY RELATED COMPOUNDS PLEASE CALL THE LAB. 5 Y/N query for Sepsis Lactate Rule: Y 6 Units are mL/min/1.73 m2 Chronic Kidney Disease Staging per NKF: Stage I & II GFR >=60 Normal to Mildly Decreased Stage III GFR 30-59 Moderately Decreased Stage IV GFR 15-29 Severely Decreased Stage V GFR <15 Very Little GFR Left ESRD GFR <15 on [facility] [employer] [facility] 7 REFERENCE RANGES: <=5.6% NORMAL 5.7-6.4% SUGGESTS IMPAIRED GLUCOSE META BOLISM/PREDIABETIC >= 6.5% ABNORMAL 8 This respiratory PCR panel d etects Influenza [...] 19) Procedures Date Code Description Status 08/22/2018 [id number] Mammogram Completed 08/05/2017 [id number] Mammogram Completed 07/29/2016 [id number] Mammogram Completed Medical Devices Description No Information Available Encounters Type Date Location Provider Dx Diagnosis Office Visit 09/17/2020 3:00p [facility] Rosario TaverasO. 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 I10 Essential (primary) hyperten silverio J06.9 Acute upper respiratory infe ction, unspecified Z79.82 intermediate (current) use of a spirin Z79.899 Other nursing home (current) dr monique therapy Assessments Date Code Description Provider 09/17/2020 Z95.0 Presence of cardiac pacemaker Moises Dao, D.O. 09/17/2020 I10 Essential (primary) hypertension Rosie Dao D.O. 09/17/2020 E11.9 Type 2 diabetes mellitus without complications Rosie Bond D.O. 09/17/2020 E03.9 Hypothyroidism, unspecified Rosie Dao, D.O. 09/17/2020 E78.2 Mixed hyperlipidemia Rosie ma-Ronda, D.O. 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 09/17/2020 Z79.82 intermediate (current) use of aspir in Rosie Dao, D.O. 09/17/2020 R91.8 Other nonspecific abnormal findi ng of lung field Rosie Bond D.O. 09/17/2020 R59.0 Localized enlarged lymph nodes Jose Antonio Dao D.O. 09/10/2020 I10 Essential (primary) hypertension Rosie Dao, D.O. 09/10/2020 E11.9 Type 2 diabetes mellitus without complications Rosie Bond D.O. 09/10/2020 E03.9 Hypothyroidism, unspecified Rosie Zavala-Ronda, D.O. 09/10/2020 E78.2 Mixed hyperlipidemia Rosie Keene no-Ronda, D.O. 09/10/2020 Z79.899 Other nursing home (current) drug t herapy Rosie BocanegraEllyn D.O. 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 09/10/2020 R00.2 Palpitations Rosie KeenenoNikolas heber D.O. 09/10/2020 R07.89 Other chest pain Rosiealexis BocanegraLucas-Tavon Liu alanis.O. 08/20/2020 I10 Essential (primary) hypertension Rosie Dao D.O. 08/20/2020 J06.9 Acute upper respiratory infectio n, unspecified Liu Garcia.O. 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 Plan of Treatment Future Appointment(s):* 10/14/2020 10:20 am - Rosie Dao D.O. at [facility] Functional Status Description No Information Available Mental Status Description No Information Available Referrals Refer to Reason for Referral Status Appt Date Ellis Armstrong D.O. This is a 69 year old female with history of COVID in July and persistent chest tightness and shortness of breath. I did a CT angiogram which was inconclusive for PE but did show spiculated nodules and postinfectious changes. I have ordered a PET CT and in the meantime she had heart block and syncope and had a pacemaker implanted. She is following with Dr. Bell. Please evaluate and treat. [facility] [address] [place] [address] [phone] Vladimir Nelson D.O. 69 year-old female with mult iple asymmetrical lung nodules found on CTA of Chest. Please evaluate and treat [facility] [address] [place] [address] [phone] Ivan Bell M.D. This is a 69 year old female with recent COVID diagnosis. She had elevated BP when I diagnosed her and I added another agent and then she started to have syncope at home and now is mosly normotensice off her regular losartan and the additional amlodipine. She also complains of intermittent heart pounding. Please evaluate and treat. Sent / [facility] [address] [facility] [address] [place] [address] [phone]
--- OUTSIDE RECORDS SUMMARY | 2020-10-10 21:02 | CCD | Continuity of Care Document ---
Author Author Key BRADSHAW PA Organization Unknown Address [address] [place] [address], [place] [address] Phone [phone] Care Team Providers Care Stockholder Name Role Phone Rosie Dao DO AUTM [phone] Problems Active Problems Provider Date Electrocardiogram abnormal Ellis Potter MD Onset: 05/19 Essential hypertension Ellis Potter MD Onset: 7 Hyperlipidemia Ellis Potter MD Onset: 05/19/2017 Overweight Ellis Potter MD Onset: 05/19/2017 Right bundle branch block AND left anterior fascicular block Ellis Potter MD Onset: 05/19/2017 Cardiac pacemaker in situ [...] SIG Qnty Indications Ordering Provide r Date [place] 3-6-9 1200mg Capsules 2 by mouth every day Ellis Potter MD 05/19/2017 Aspirin Ec 81mg Tablets [address] [...] Sitting 86 mmHg adult cuff, Ra Results Description No Information Available Procedures Description No Information Available Medical Devices Description No Information Available Encounters Description No Information Available Assessments Date Code Description Provider 09/20/2020 Z95.0 Presence of cardiac pacemaker Ca MADELYN Frost Plan of Treatment Future Appointment(s):* 10/18/2020 9:30 am - MADELYN Vincent at Main Office * 11/11/2020 3:15 pm - Ivan Bell MD at Main Office 09/20/2020 - MADELYN Vincent* Z95.0 Presence of cardiac pacemaker * All * Follow up:* 1 month pacer check Follow-up with Dr. Bell as scheduled Functional Status Functional Condition Comment Date Status Independent with all ADL's Activ e Mental Status Description No Information Available Referrals Description No Information Available
--- OUTSIDE RECORDS SUMMARY | 2020-10-10 21:03 | CCD | Continuity of Care Document ---
Author Author Key MARIE PA Organization Unknown Address [place] [address] Phone [phone] Care Team Providers Care Mobile Electronics Installer Name Role Phone Rosie Dao D.O. AUTM [...] E78.2 Rosario PachecoO Yeyo 04/09/2016 Calcium 600+D [id number]-Krot Table ts 1 by mouth daily 30tabs E55.9 Rosario PachecoOYeyo 01/07 Aspir-[address] 1 by mouth every day 90tabs E11.9 oRsario PachecoOYeyo 02/21 Levothyroxine Sodium 75mcg Tablets Take 1 [...] Administration Single Or Co mbination Injection Liu Pacheco.OYeyo 08/29/2014 Immunizations CPT Code Status Date Vaccine Lot # 00763 Given 06/24/2018 Influenza Virus Vaccine, Quadrivalent, Split, Preservative Free [id number] Given 09/06/2017 Pneumococcal Con jugate Vaccine 13 Valent For Intramuscular Use [id number] Given 06/21/2017 Influenza Vaccin e Quadrivalent Preser/Antibiotic Free Im Use [id number] U-Flu Given 06/23/2016 Influenza,Unspecified [id number] Given 08/29/2014 Tetanus, Diphthe gee Toxoids/Acellular Pertussis Vaccine 7 Or > [id number] Vital Signs Date Vital Result Comment 09/10/2020 10:55am BP Systolic 160 mmHg BP Diastolic 72 mmHg Height 67 inches 5'7" Weight 191.00 lb BMI (Body Mass Index) 29.9 kg/m2 Heart Rate 100 /min Respiratory Rate 14 /min Body Temperature 98.0 F O2 % BldC Oximetry 98 % [place] Body Weight 135 lb 08/20/2020 4:11pm BP Systolic 166 mmHg BP Diastolic 84 mmHg Height 67 inches 5'7" Weight 199.00 lb BMI (Body Mass Index) 31.2 kg/m2 Heart Rate 97 /min Respiratory Rate 18 /min Body Temperature 98.0 F O2 % BldC Oximetry 98 % [place] Body Weight 135 lb Results Test Acquired Date Facility Test Result H/L Range Note Laboratory test finding 09/11/2020 [facility] Outpatient T esting (Registration) [address] [place] [address] [phone] Ethyl Alcohol (Ethanol) < 0.003 % Normal 0.000-0. 010 Thyroid Stimulating Hormone 0.643 uIU/ML Normal 0.358-3.740 Magnesium Level 2.1 mg/dL Normal 1.8-2.4 Basic Metabolic Profile 09/11/2020 [facility] Outpatient T esting (Registration) [address] [place] [address] [phone] Glucose, Fasting 129 mg/dL High 70-100 Blood [...] mg/dL Normal 8.8-10.2 Cardiac Marker Panel 09/11/2020 [facility] Outpatient Test ing (Registration) [address] [place] [address] [phone] CPK Creatine Phosphokinase 79 U/L Normal 26-19 2 CK-MB Value Mass < 1.0 NG/ML Normal <3.6 MB/CK Relative Index 1.27 Normal < Or =4 2 Troponin I < 0.02 NG/ML Normal < 0.10 3 Drug Eval Toxicology ED Only 09/11/2020 [facility] Outpati ent Testing (Registration) [address] [place] [address] [phone] Amphetamines Level Urine NEGATIVE Normal Negativ e Barbiturates Urine NEGATIVE Normal Negative Benzodiazepines Urine NEGATIVE Normal Negative Cannabinoids Urine NEGATIVE Normal Negative Cocaine Metabolite Urine NEGATIVE Normal Negative Methadone Urine NEGATIVE Normal Negative Opiates Urine NEGATIVE Normal Negative Phencyclidine Urine NEGATIVE Normal Negative 4 Ua W/ Reflex To Culture 09/11/2020 [facility] Outpatient T esting (Registration) [address] [place] [address] [phone] Appearance, Urine RFX CLEAR Normal Clear Color, Urine RFX STRAW Normal Yellow PH,Urine RFX 7.0 units Normal 5.0-9.0 Specific [place] Ur Auto RFX 1.008 Normal 1.002-1.035 Protein, [...] /LPF Normal 0-1 CBC With Differential 09/11/2020 [facility] Outpatient Radha alvarado (Registration) [address] [place] [address] [phone] White Blood Count 6.1 10 Normal 4.0-10.0 [...] 36.0-66.0 Lymph % 29.3 % Normal 24.0-44.0 [place] % 9.5 % High 0.0-5.0 Eos % 2.5 % Normal 0.0-3.0 Baso % 1.0 % Normal 0.0-1.0 Immature Granulocyte % 0.2 % Normal 0-3.0 Nucleated Red Blood Cell % 0.0 % Normal 0-0 Neutrophils # 3.5 10 Normal 1.5-8.5 Lymph # 1.8 10 Normal 1.5-5.0 [place] # 0.6 10 Normal 0.0-0.8 Eos # 0.2 10 Normal 0.0-0.5 Baso # 0.1 10 Normal 0.0-0.2 Laboratory test finding 09/11/2020 [facility] Outpatient T esting (Registration) [address] [place] [address] [phone] Lactic Acid Sepsis Protocol 1.9 mmol/L Normal 0.4- 2.0 5 Laboratory test finding 09/11/2020 [facility] Outpatient T esting (Registration) [address] [place] [address] [phone] Bedside Glucose 136 mg/dL High 80-115 CBC With Differential 09/09/[address] [address] [phone] White Blood Count 4.8 10 Normal 4.0-10.0 [...] 36.0-66.0 Lymph % 32.6 % Normal 24.0-44.0 [place] % 8.9 % High 0.0-5.0 Eos % 3.1 % High 0.0-3.0 Baso % 1.0 % Normal 0.0-1.0 Immature Granulocyte % 0.2 % Normal 0-3.0 Nucleated Red Blood Cell % 0.0 % Normal 0-0 Neutrophils # 2.6 10 Normal 1.5-8.5 Lymph # 1.6 10 Normal 1.5-5.0 [place] # 0.4 10 Normal 0.0-0.8 Eos # 0.2 10 Normal 0.0-0.5 Baso # 0.1 10 Normal 0.0-0.2 Laboratory test finding 09/09/[address] [address] [phone] Total 25(Oh) Vitamin D 67.0 NG/ML Normal 30.0-100. 0 FT4&TSH Panel 09/09/[address] [address] [phone] Thyroid Stimulating Hormone 0.387 uIU/ML Normal 0. 358-3.740 Free T4 1.46 ng/dL Normal 0.76-1.46 Comprehensive Metabolic Profil 09/09/[address] [address] [phone] Glucose, Fasting 110 mg/dL High 70-100 Blood [...] Ratio 1.3 Normal 1.2-2.2 Hemoglobin A1c 09/09/[address] [address] [phone] Hemoglobin A1c 5.4 % Normal 7 Estimated Average Glucose 108 mg/dL Normal 60-110 Lipid Panel 09/09/[address] [address] [phone] Triglycerides Level 68 mg/dL Normal <150 Cholesterol Level 307 mg/dL High <200 HDL Cholesterol 68 mg/dL Normal >40 LDL Cholesterol 225 mg/dL High <100 Non-HDL-C 239 mg/dL Normal Cholesterol Risk Ratio 4.514 Normal <5 Laboratory test finding 09/09/2020 [facility] [address] [place] [address] [phone] D-Dimer Quant 519.01 ng/ml High <500 Respiratory Panel 08/20/2020 [facility] nter [address] [place] [address] [phone] Respiratory Panel This respiratory <SEE NOTE> 8 1 Units are mL/min/1.73 m2 Chronic Kidney Disease Staging per NKF: Stage I & II GFR >=60 Normal to Mildly Decreased Stage III GFR 30-59 Moderately Decreased Stage IV GFR 15-29 Severely Decreased Stage V GFR <15 Very Little GFR Left ESRD GFR <15 on SENIOR IT PROJECT MANAGER 2 DIAGNOSIS CRITERIA MMB ng/ml Relative Index (RI) NON-AMI < or = 5 N/A PANIAGUA ZONE > 5 < or = 4 AMI > 5 > 4 3 Troponin I Reference Interva l for [employer] LOCI: 99th Percentile= 0.00-0.045 ng/ml Risk Stratification: [...] Little GFR Left ESRD GFR <15 on SENIOR IT PROJECT MANAGER 7 REFERENCE RANGES: <=5.6% NORMAL 5.7-6.4% SUGGESTS [...] 19) Procedures Date Code Description Status 08/22/2018 [id number] Mammogram Completed 08/05/2017 [id number] Mammogram Completed 07/29/2016 [id number] Mammogram Completed Medical Devices Description No Information Available Encounters Type Date Location Provider Dx Diagnosis Office Visit 09/10/2020 10:40a [facility] Rosario PachecoOYeyo I10 Essential (primary) hyperten silverio E11.9 Type 2 diabetes mellitus wit hout complications E03.9 Hypothyroidism, unspecified E78.2 Mixed hyperlipidemia Z79.899 Other manager terminal (current) dr monique therapy Z79.82 skilled nursing (current) use of a spirin R00.2 Palpitations R07.89 Other chest pain Office Visit 08/20/2020 4:00p [facility] Rosie Dao D.O. I10 Essential (primary) hyperten silverio J06.9 Acute upper respiratory infe ction, unspecified Z79.82 skilled nursing (current) use of a spirin Z79.899 Other [facility] (current) dr monique therapy Assessments Date Code Description Provider 09/10/2020 I10 Essential (primary) hypertension Rosie Dao D.O. 09/10/2020 E11.9 Type 2 diabetes mellitus without complications Rosie Bond D.O. 09/10/2020 E03.9 Hypothyroidism, unspecified Rosie Lucas-Ronda, D.O. 09/10/2020 E78.2 Mixed hyperlipidemia Liu Shay.O. 09/10/2020 Z79.899 Other manager terminal (current) drug t herapy Liu Pacheco.O. 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 09/10/2020 R00.2 Palpitations Liu Rangel.O. 09/10/2020 R07.89 Other chest pain Rosie SeayS Liu alanis.O. 08/20/2020 I10 Essential (primary) hypertension Liu Pacheco.O. 08/20/2020 J06.9 Acute upper respiratory infectio n, unspecified Liu Garcia.O. 08/20/2020 Z79.82 terminal system operator (current) use of aspir in Liu Pacheco.O. 08/20/2020 Z79.899 Other [facility] (current) drug t herapy Rosie Dao D.O. Plan of Treatment Future Appointment(s):* 09/13/2020 9:40 am - Rosie Dao D.O. at [facility] * 10/14/2020 10:20 am - [facility] D[facility]O. at [facility] [...] heart pounding. Please evaluate and treat. Sent [facility] [address] [place] [id number] [phone]
--- OUTSIDE RECORDS SUMMARY | 2020-10-10 21:03 | CCD | Continuity of Care Document ---
Author Author Key DAOO . Organization Unknown Address [address] [place] [address] Phone [phone] Care Team Providers Care Pari Mutuel Ticket Seller Name Role Phone Rosie Dao D.O. AUTM [phone] Vladimir Nelson D.O. AUTM [phone] Problems Active Problems Provider Date Essential hypertension [...] E78.2 Rosario PachecoO Yeyo 04/09/2016 Calcium 600+D [id number]-Eflp Table ts 1 by mouth daily 30tabs [...] CPT Code Status Date Vaccine Lot # 17413 Given 06/24/2018 Influenza Virus Vaccine, Quadrivalent, Split, Preservative Free [id number] 59619 Given 09/06/2017 Pneumococcal Con jugate Vaccine 13 Valent For Intramuscular Use [id number] 69925 Given 06/21/2017 Influenza Vaccin e Quadrivalent Preser/Antibiotic Free Im Use [id number] U-Flu Given 06/23/2016 Influenza,Unspecified 65372 Given 08/29/2014 Tetanus, Diphthe gee Toxoids/Acellular Pertussis Vaccine 7 Or > [id number] Vital Signs Date Vital Result Comment 09/17/2020 3:01pm BP Systolic 142 mmHg BP Diastolic 90 mmHg Height 67 inches 5'7" Weight 189.00 lb BMI (Body Mass Index) 29.6 kg/m2 Heart Rate 78 /min Respiratory Rate 18 /min Body Temperature 98.8 F O2 % BldC Oximetry 97 % [place] Body Weight 135 lb 09/10/2020 10:55am BP Systolic 160 mmHg BP Diastolic 72 mmHg Height 67 inches 5'7" Weight 191.00 lb BMI (Body Mass Index) 29.9 kg/m2 Heart Rate 100 /min Respiratory Rate 14 /min Body Temperature 98.0 F O2 % BldC Oximetry 98 % [place] Body Weight 135 lb Results Test Acquired Date Facility Test Result H/L Range Note Laboratory test finding 09/11/2020 [facility] Outpatient T esting (Registration) [address] [place] [address] [phone] Ethyl Alcohol (Ethanol) < 0.003 % Normal 0.000-0. 010 Thyroid Stimulating Hormone 0.643 uIU/ML Normal 0.358-3.740 Magnesium Level 2.1 mg/dL Normal 1.8-2.4 Basic Metabolic Profile 09/11/2020 [facility] Outpatient T esting (Registration) [address] [place] [address] [phone] Glucose, Fasting 129 mg/dL High 70-100 Blood [...] mg/dL Normal 8.8-10.2 Cardiac Marker Panel 09/11/2020 [facility] Outpatient Test ing (Registration) [address] [place] [address] [phone] CPK Creatine Phosphokinase 79 U/L Normal 26-19 2 CK-MB Value Mass < 1.0 NG/ML Normal <3.6 MB/CK Relative Index 1.27 Normal < Or =4 2 Troponin I < 0.02 NG/ML Normal < 0.10 3 Drug Eval Toxicology ED Only 09/11/2020 [facility] Outpati ent Testing (Registration) [address] [place] [address] [phone] Amphetamines Level Urine NEGATIVE Normal Negativ e Barbiturates Urine NEGATIVE Normal Negative Benzodiazepines Urine NEGATIVE Normal Negative Cannabinoids Urine NEGATIVE Normal Negative Cocaine Metabolite Urine NEGATIVE Normal Negative Methadone Urine NEGATIVE Normal Negative Opiates Urine NEGATIVE Normal Negative Phencyclidine Urine NEGATIVE Normal Negative 4 Ua W/ Reflex To Culture 09/11/2020 [facility] Outpatient T andersoning (Registration) [address] [place] [address] [phone] Appearance, Urine RFX CLEAR Normal Clear Color, Urine RFX STRAW Normal Yellow PH,Urine RFX 7.0 units Normal 5.0-9.0 Specific [place] Ur Auto RFX 1.008 Normal 1.002-1.035 Protein, [...] /LPF Normal 0-1 CBC With Differential 09/11/2020 [facility] Outpatient Radha alvarado (Registration) [address] [place] [address] [phone] White Blood Count 6.1 10 Normal 4.0-10.0 [...] 36.0-66.0 Lymph % 29.3 % Normal 24.0-44.0 [place] % 9.5 % High 0.0-5.0 Eos % 2.5 % Normal 0.0-3.0 Baso % 1.0 % Normal 0.0-1.0 Immature Granulocyte % 0.2 % Normal 0-3.0 Nucleated Red Blood Cell % 0.0 % Normal 0-0 Neutrophils # 3.5 10 Normal 1.5-8.5 Lymph # 1.8 10 Normal 1.5-5.0 [place] # 0.6 10 Normal 0.0-0.8 Eos # 0.2 10 Normal 0.0-0.5 Baso # 0.1 10 Normal 0.0-0.2 Laboratory test finding 09/11/2020 [facility] Outpatient T esting (Registration) [address] [place] [address] [phone] Lactic Acid Sepsis Protocol 1.9 mmol/L Normal 0.4- 2.0 5 Laboratory test finding 09/11/2020 [facility] Outpatient T esting (Registration) [address] [place] [address] [phone] Bedside Glucose 136 mg/dL High 80-115 CBC With Differential 09/09/[address] [address] [phone] White Blood Count 4.8 10 Normal 4.0-10.0 [...] 36.0-66.0 Lymph % 32.6 % Normal 24.0-44.0 [place] % 8.9 % High 0.0-5.0 Eos % 3.1 % High 0.0-3.0 Baso % 1.0 % Normal 0.0-1.0 Immature Granulocyte % 0.2 % Normal 0-3.0 Nucleated Red Blood Cell % 0.0 % Normal 0-0 Neutrophils # 2.6 10 Normal 1.5-8.5 Lymph # 1.6 10 Normal 1.5-5.0 [place] # 0.4 10 Normal 0.0-0.8 Eos # 0.2 10 Normal 0.0-0.5 Baso # 0.1 10 Normal 0.0-0.2 Laboratory test finding 09/09/[address] [address] [phone] Total 25(Oh) Vitamin D 67.0 NG/ML Normal 30.0-100. 0 FT4&TSH Panel 09/09/2020 [facility] nter [address] [place] [address] [phone] Thyroid Stimulating Hormone 0.387 uIU/ML Normal 0. 358-3.740 Free T4 1.46 ng/dL Normal 0.76-1.46 Comprehensive Metabolic Profil 09/09/[address] [address] [phone] Glucose, Fasting 110 mg/dL High 70-100 Blood [...] Ratio 1.3 Normal 1.2-2.2 Hemoglobin A1c 09/09/[address] [address] [phone] Hemoglobin A1c 5.4 % Normal 7 Estimated Average Glucose 108 mg/dL Normal 60-110 Lipid Panel 09/09/2020 [facility] n[facility] [address] [place] [address] [phone] Triglycerides Level 68 mg/dL Normal <150 Cholesterol Level 307 mg/dL High <200 HDL Cholesterol 68 mg/dL Normal >40 LDL Cholesterol 225 mg/dL High <100 Non-HDL-C 239 mg/dL Normal Cholesterol Risk Ratio 4.514 Normal <5 Laboratory test finding 09/09/2020 [facility] [address] [place] [address] [phone] D-Dimer Quant 519.01 ng/ml High <500 Respiratory Panel 08/20/2020 [facility] n[facility] [address] [place] [address] [phone] Respiratory Panel This respiratory <SEE NOTE> 8 1 Units are mL/min/1.73 m2 Chronic Kidney Disease Staging per NKF: Stage I & II GFR >=60 Normal to Mildly Decreased Stage III GFR 30-59 Moderately Decreased Stage IV GFR 15-29 Severely Decreased Stage V GFR <15 Very Little GFR Left ESRD GFR <15 on DINING MANAGER 2 DIAGNOSIS CRITERIA MMB ng/ml Relative Index (RI) NON-AMI < or = 5 N/A PANIAGUA ZONE > 5 < or = 4 AMI > 5 > 4 3 Troponin I Reference Interva l for [employer] LOCI: 99th Percentile= 0.00-0.045 ng/ml Risk Stratification: [...] Little GFR Left ESRD GFR <15 on DINING MANAGER 7 REFERENCE RANGES: <=5.6% NORMAL 5.7-6.4% [...] 19) Procedures Date Code Description Status 08/22/2018 [id number] Mammogram Completed 08/05/2017 [id number] Mammogram Completed 07/29/2016 [id number] Mammogram Completed Medical Devices Description No Information Available Encounters Type Date Location Provider Dx Diagnosis Office Visit 09/17/2020 3:00p [facility] Rsoario TaverasO. 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 I10 Essential (primary) hyperten [...] hyperlipidemia Rosie ma-Ronda, D.O. 09/17/2020 Z79.899 Other local intermodal truck driver (current) drug t herapy Rosie Dao, D.O. 09/17/2020 Z79.82 assisted (current) use of aspir in Rosie Dao, [...] Other nursing home (current) drug t herapy Liu Pacheco.OYeyo 09/10/2020 Z79.82 buttermaker continuous churn (current) use of aspir in Liu Pacheco.OYeyo 09/10/2020 R00.2 Palpitations Rosario RangelOYeyo 09/10/2020 R07.89 Other chest pain Rosario SotoOYeyo 08/20/2020 I10 Essential (primary) hypertension Liu Pacheco.OYeyo 08/20/2020 J06.9 Acute upper respiratory infectio n, unspecified Liu Garcia.OYeyo 08/20/2020 Z79.82 buttermaker continuous churn (current) use of aspir in Liu Pacheco.OYeyo 08/20/2020 Z79.899 Other local intermodal 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 Plan of Treatment Future Appointment(s):* 10/14/2020 10:20 am - Rosie Dao D.O. at [facility] 09/17/2020 - Rosie Dao D.O.* Z95.0 Presence of cardiac pacemaker* Comments:* Dr. Bell will see her in follow up now * I10 Essential (primary) hypertension* Comments:* We restarted losartan and BP is starting to normalize. I will see her back in a month * E11.9 Type 2 diabetes mellitus without complications* Comments:* She is diet controlled and doing very well. * E03.9 Hypothyroidism, unspecified * E78.2 Mixed hyperlipidemia* Comments:* she is back on her crestor now * Z79.899 Other nursing home (current) drug therapy * Z79.82 buttermaker continuous churn (current) use of aspirin * R91.8 Other nonspecific abnormal finding of lung field* New Xrays:* PET, W/CT Whole Body, Ordered: 09/17/20 * Comments:* I will do a referral to Dr. Armstrong and obtain PET CT * Referral:* Ellis Armstrong D.O., Pulmonary Diseases * R59.0 Localized enlarged lymph nodes* Comments:* I will do a referral to Dr. Armstrong and obtain PET CT * Follow up:* as scheduled Functional Status Description No Information Available Mental [...] treat. [facility] [address] [place] [address] [phone] Vladimir Nelson D.O. 69 year-old female with mult iple asymmetrical lung nodules found on CTA of Chest. Please evaluate and treat [facility] [address] [place] [address] [phone] Ivan Bell M.D. This is a 69 year old female with recent COVID diagnosis. She had elevated BP when I diagnosed her and I added another agent and then she started to have syncope at home and now is mosly normotensice off her regular losartan and the additional amlodipine. She also complains of intermittent heart pounding. Please evaluate and treat. [facility] [address] [facility] [address] [place] [id number] [phone]
[2020-10-10] MEDS ORDERED: SM M250T PO (21:04)
[2020-10-10] MEDS ORDERED: LOSA50TA88 PO (21:04)
--- OUTSIDE RECORDS SUMMARY | 2020-10-10 21:04 | CCD ---
Author Author [facility] Organization [facility] Address Unknown Phone Unavailable Support Name Relationship Address Phone RE Next Of Kin Unknown Unavailable UE Next Of Kin Unknown Unavailable GEORGES RONEL Next Of Kin [id number] [place] [address] Care Team Providers Care Box Gluer Name Role Phone Ellis Ruiz Unavailable Unavailable [...] Unavailable LORRAINE, BIANKA MD Unavailable Unavailable LORRAINE, IBANKA MD Unavailable Unavailable LORRAINE, BIANKA MD Unavailable Unavailable Sumanth Castillo Unavailable Unavailable Sumanth Castillo Unavailable Unavailable Anna, Sumanth PA Unavailable Unavailable [...] Unavailable Unavailable Anna, Sumanth PA Unavailable Unavailable NISHA-ALMA, ROSIE DO Unavailable Unavailable NISHA-ALMA, ROSIE DO Unavailable Unavailable NISHA-ALMA, ROSIE DO Unavailable Unavailable NISHA-ALMA, ROSIE DO Unavailable Unavailable NISHA-ALMA, ROSIE DO Unavailable Unavailable NISHA-ALMA, ROSIE DO Unavailable Unavailable NISHA-ALMA, ROSIE DO Unavailable Unavailable NISHA-ALMA, ROSIE DO Unavailable Unavailable NISHA-ALMA, ROSIE DO Unavailable Unavailable NISHA-ALMA, ROSIE DO Unavailable Unavailable NISHA-ALMA, ROSIE DO Unavailable Unavailable NISHA-ALMA, ROSIE DO Unavailable Unavailable NISHA-ALMA, ROSIE DO Unavailable Unavailable NISHA-ALMA, ROSIE DO Unavailable Unavailable NISHA-ALMA, ROSIE DO Unavailable Unavailable NISHA-ALMA, ROSIE DO Unavailable Unavailable NISHA-ALMA, ROSIE DO Unavailable Unavailable NISHA-ALMA, ROSIE DO Unavailable Unavailable NISHA-ALMA, ROSIE DO Unavailable Unavailable NISHA-ALMA, ROSIE DO Unavailable Unavailable NISHA-ALMA, ROSIE DO Unavailable Unavailable NISHA-ALMA, ROSIE DO Unavailable Unavailable NISHA-ALMA, ROSIE DO Unavailable Unavailable NISHA-ALMA, ROSIE DO Unavailable Unavailable NISHA-ALMA, ROSIE DO Unavailable Unavailable NISHA-ALMA, ROSIE DO Unavailable Unavailable NISHA-AMLA, ROSIE DO Unavailable Unavailable NISHA-ALMA, ROSIE DO Unavailable Unavailable NISHA-ALMA, ROSIE DO Unavailable Unavailable NISHA-ALMA, ROSIE DO Unavailable Unavailable NISHA-ALMA, ROSIE DO Unavailable Unavailable NISHA-ALMA, ROSIE DO Unavailable Unavailable NISHA-ALMA, ROSIE DO Unavailable Unavailable NISHA-ALMA, ROSIE DO Unavailable Unavailable NISHA-ALMA, ROSIE DO Unavailable Unavailable NISHA-ALMA, ROSIE DO Unavailable Unavailable NISHA-ALMA, ROSIE DO Unavailable Unavailable NISHA-ALMA, ROSIE DO Unavailable Unavailable NISHA-ALMA, ROSIE DO Unavailable Unavailable NISHA-ALMA, ROSIE DO Unavailable Unavailable NISHA-ALMA, ROSIE DO Unavailable Unavailable NISHA-ALMA, ROSIE DO Unavailable Unavailable NISHA-ALMA, ROSIE DO Unavailable Unavailable NISHA-ALMA, ROSIE DO Unavailable Unavailable NISHA-ALMA, ROSIE DO Unavailable Unavailable NISHA-ALMA, ROSIE DO Unavailable Unavailable NISHA-ALMA, ROSIE DO Unavailable Unavailable NISHA-ALMA, ROSIE DO Unavailable Unavailable NISHA-ALMA, ROSIE DO Unavailable Unavailable NISHA-ALMA, ROSIE DO Unavailable Unavailable NIHSA-ALMA, ROSIE DO Unavailable Unavailable NISHA-ALMA, ROSIE DO Unavailable Unavailable NISHA-ALMA, ROSIE DO Unavailable Unavailable NISHA-ALMA, ROSIE DO Unavailable Unavailable NISHA-ALMA, ROSIE DO Unavailable Unavailable NISHA-ALMA, ROSIE DO Unavailable Unavailable NISHA-ALMA, ROSIE DO Unavailable Unavailable NISHA-ALMA, ROSIE DO Unavailable Unavailable NISHA-ALMA, ROSIE DO Unavailable Unavailable NISHA-ALMA, ROSIE DO Unavailable Unavailable NISHA-ALMA, ROSIE DO Unavailable Unavailable NISHA-ALMA, ROSIE DO Unavailable Unavailable NISHA-ALMA, ROSIE DO Unavailable Unavailable NISHA-ALMA, ROSIE DO Unavailable Unavailable NISHA-ALMA, ROSIE DO Unavailable Unavailable NISHA-ALMA, ROSIE DO Unavailable Unavailable NISHA-ALMA, ROSIE DO Unavailable Unavailable NISHA-ALMA, ROSIE DO Unavailable Unavailable NISHA-ALMA, ROSIE DO Unavailable Unavailable NISHA-ALMA, ROSIE DO Unavailable Unavailable NISHA-ALMA, ROSIE DO Unavailable Unavailable NISHA-ALMA, ROSIE DO Unavailable Unavailable NISHA-ALMA, ROSIE DO Unavailable Unavailable NISHA-ALMA, ROSIE DO Unavailable Unavailable NISHA-ALMA, ROSIE DO Unavailable Unavailable NISHA-ALMA, ROSIE DO Unavailable Unavailable NISHA-ALMA, ROSIE DO Unavailable Unavailable NISHA-ALMA, ROSIE DO Unavailable Unavailable NISHA-ALMA, ROSIE DO Unavailable Unavailable NISHA-ALMA, ROSIE DO Unavailable Unavailable NISHA-ALMA, ROSIE DO Unavailable Unavailable NISHA-ALMA, ROSIE DO Unavailable Unavailable AUGUSTINE, L IRWIN PA Unavailable Unavailable AUGUSTINE, L IRWIN PA Unavailable Unavailable AUGUSTINE, L IRWIN PA Unavailable Unavailable AUGUSTINE, L IRWIN PA Unavailable Unavailable AUGUSTINE, L IRWIN PA Unavailable Unavailable AUGUSTINE, L IRWIN PA Unavailable Unavailable AUGUSTINE, L IRWIN PA Unavailable Unavailable AUGUSTINE, L IRWIN PA Unavailable Unavailable AUGUSTINE, L IRWIN PA Unavailable Unavailable AUGUSTINE, L IRWIN PA Unavailable Unavailable AUGUSTINE, L IRWIN PA Unavailable Unavailable AUGUSTINE, L IRWIN PA Unavailable Unavailable O'radha, A Pierre PA [...] is protected by Article 27-F of the [place] Public Health law. If you continue you may have access to information: Regarding HIV / AIDS; Provided by facilities licensed or operated by the [facility] Office of Mental Health; or Provided by the [facility] Office for People With Developmental Disabilities. If such information is present, then the following [facility] mandated warning applies: This information has [...] law may result in a fine or mcc sentence or both. A general authorization for the release of medical or other information is NOT sufficient authorization for further disc losure. Allergies and Adverse Reactions Type Description Substance Reaction Status Data Source(s ) Drug Class NO KNOWN ALLERGIES NO KNOWN ALLERGIES [facility] No Known Drug Allergies No Known Drug Allergies No Known Drug Aller gies active [facility] ([facility] ) Family History Family Member Name Family Member Gender Family Member Status Date o f Status Description Data Source(s) Unknown Male Problem MEDENT ([facility]) Unknown Male Problem [facility] ([facility]) Unknown Female Problem MEDENT ([facility]) Encounters Encounter Providers Location Date Indications Data Source(s ) Outpatient Attender: IRWIN JOSHI Main Office 09/20/2020 1 1:45:00 AM EST [facility] ([facility]) Outpatient Attender: ROSIE DALEY [facility] 09/17/2020 02:00:00 PM EST [facility] ([facility]) Outpatient Attender: ROSIE DALEY [facility] 09/10/2020 09:40:00 AM EST [facility] ([facility]) Outpatient Attender: Lux JOSHI 09/03/2020 12:00:00 AM [facility] Outpatient Attender: ROSIE DALEY [facility] 08/20/2020 03:00:00 PM EST MED[facility] ([facility]) Outpatient Attender: Lux JOSHI [id number] 04/03/2020 12 :00:00 AM EDT Presence of right artificial hip joint [facility] Presence of right artificial hip joint Outpatient Referrer: BIANKA PETERS MD 04/03/2020 12:00:0 0 AM EDT Presence of right artificial hip joint [facility] Presence of right artificial hip joint Outpatient Attender: BIANKA PETERS MD 03/12/2020 12:00:[address] [facility] Outpatient Attender: Pierre JOSHI [facility] 02/01/2020 09:30:00 AM EDT MEDENT ([facility]) Outpatient Attender: BIANKA PETERS MD 01/23/2020 12:00:[address] [facility] Outpatient Attender: Lux JOSHI 12/19/2019 12:00:00 AM T [facility] Outpatient Attender: BIANKA PETERS MD [id number] 0 12:00:00 AM EST - 10/17/2019 02:04:23 PM EST Presence of right artificial hip joint [facility] Presence of right artificial hip joint Outpatient Referrer: BIANKA PETERS MD 10/17/2019 12:00:0 0 AM EST Presence of right artificial hip joint [facility] Presence of right artificial hip joint Outpatient Attender: BIANKA PETERS MD [id number] 0 12:00:00 AM EST - 10/12/2019 07:51:28 AM EST Unilateral primary osteoarthritis, right [facility] Unilateral primary osteoarthritis, right hip Outpatient Referrer: BIANKA PETERS MD 09/19/2019 12:00:0 0 AM EST Unilateral primary osteoarthritis, right [facility] Unilateral primary osteoarthritis, right hip Outpatient Attender: BIANKA PETERS MD 09/12/2019 12:00:00 AM E [facility] Outpatient Attender: BIANKA PETERS MD 09/05/2019 12:00:00 AM E [facility] Outpatient Attender: Sumanth JOSHI [facility] 09/04/2019 01:40:00 PM EST MED[facility] ([facility]) 08/31/2019 12:00:00 AM EST - 020 08:44:15 AM EST [facility] ([facility]) Inpatient Attender: BIANKA PETERS MDAdmitter: BIANKA PETERS MD [id number] 08/28/2019 12:00:00 AM EST - 08/30/2019 02:57:00 PM EST Unilateral primary osteoarthritis, right hip [facility] Unilateral primary osteoarthritis, right hip Patient discharged. Immunizations Vaccine Date Status Description Data Source(s) INFLUENZA VACCINE QUADRIVALENT (65 YR UP)/MF59 C.1/PF 07/23/2020 12:00:00 AM EST completed [facility] VARICELLA-ZOSTER VIRUS GLYCOPROTEIN E,REC/AS01B ADJUVA NT/PF 07/23/2020 12:00:00 AM EST completed [facility] Medications Medication Brand Name Start Date Product Form Dose Route Admi nistrative Instructions Pharmacy Instructions Status Indications Reaction Description Data Source(s) 5 mg 10/05/2020 12:00:00 AM EST tablet 30 TAKE ONE TABLET BY MOUTH EVERY DAY TAKE ONE TABLET BY MOUTH EVERY DAY SOLD: 10/05/2020 [facility] Losartan Potassium 50 MG Oral Tablet Losartan Potassium 09/2020 12:00:00 AM EST ORAL active MEDENT ([facility]) 5 mg 08/21/2020 12:00:00 AM EST tablet 30 TAKE ONE TABLET BY MOUTH EVERY MORNING TAKE ONE TABLET BY MOUTH EVERY MORNING SOLD: 08/21/2020 [facility] Amlodipine 5 MG Oral Tablet Amlodipine Besylate 08/20/2020 12:00:00 A M EST ORAL completed [facility] ([facility]) 500 mg 01/31/2020 12:00:00 AM EDT [...] by mouth 1 hour prior to procedure [facility] 500 mg 01/29/2020 12:00:00 AM EDT capsule 4 TAKE FOUR CAPSULES BY MOUTH 1 HOUR PRIOR TO DENTAL PROCEDURE TAKE FOUR CAPSULES BY MOUTH 1 HOUR PRIOR TO DENTAL PROCEDURE SOLD: 01/29/2020 [facility] Rosuvastatin calcium 5 MG Oral Tablet rosuvastatin (CR ESTOR) tablet 5 mg rosuvastatin (CRESTOR) tablet 5 mg 08/31/2019 09:00:00 AM EST 5 mg Oral active 5 mg, Oral, Twice We ekly, First dose on Yocasta 08/31/19 at 0900, For 30 days [facility] Medication administered onsite Aspirin 81 MG Oral Tablet Aspirin 81 MG Oral Tablet 08/31/2019 1 2:00:00 AM EST 81 mg Oral active Take 1 tablet by mouth daily [facility] Crestor 5 MG Crestor 08/31/2019 12:00:00 AM EST co mpleted [facility] ([facility]) Docusate Sodium 100 MG Docusate Sodium 08/31/2019 12:00:00 AM EST completed [facility] ([facility]) Fish Oil 875 MG Fish Oil 08/31/2019 12:00:00 AM EST completed [facility] ([facility]) Levothyroxine Sodium 75 MCG Levothyroxine Sodium 08/31/2019 12:00:00 AM EST completed [facility] ( [facility]) Losartan Potassium 50 MG Losartan Potassium 08/31/2019 12:00:00 AM EST completed [facility] ([facility]) Multivital Multivital 08/31/2019 12:00:00 AM EST c ompleted [facility] ([facility]) Osteo Bi-Flex Adv Joint Shield Osteo Bi-Flex Adv Joint Shiel d 08/31/2019 12:00:00 AM EST completed [facility] ([facility]) Aspirin 81 MG Aspirin 08/31/2019 12:00:00 AM EST c ompleted [facility] ([facility]) Acetaminophen Extra Strength 500 MG Acetaminophen Extra Stre ngth 08/31/2019 12:00:00 AM EST completed [facility] ([facility]) Calcium 600+D 600-400 MG-UNIT Calcium 600+D 08/31/2019 12:00:00 AM EST completed [facility] ([facility]) Losartan Potassium 25 MG Oral Tablet losartan (COZAAR) tablet 50 mg losartan (COZAAR) tablet 50 mg 08/30/2019 09:00:00 AM EST 50 mg Oral active 50 mg, Oral, Daily Standard, First dose (after last modification) on Wed08/30/19 at 0900, For 30 days
Check vital signs before administering
[facility] Medication administered onsite Acetaminophen 325 MG Oral Tablet Acetaminophen 325 MG Oral T ablet 08/30/2019 12:00:00 AM EST 650 mg Oral active Take 2 tablets by mouth every 6 (six) hours as needed (mild pain) for up to 10 days [facility] Oxycodone Hydrochloride 5 MG Oral Tablet oxyCODONE HCl 5 MG Oral Tablet (ROXICODONE) oxyCODONE HCl 5 MG Oral Tablet (ROXICODONE) 08/30/2019 12:00:00 AM EST Oral active Take 1-2 tablets by mouth every 4 (four) hours as needed (moderate to severe pain) for up to 7 days, Max Daily Dose: 8 tablets [facility] Docusate Sodium 100 MG Oral Capsule Docu sate Sodium 100 MG Oral Capsule (COLACE) Docusate Sodium 100 MG Oral Capsule (COLACE) 08/30/2019 12:00:00 AM EST 100 mg Oral active Take 1 cap ledy by mouth Two times daily as needed for Constipation for up to 10 days [facility] MAGNESIUM GLUCONATE 500 MG Oral Tablet m agnesium gluconate (MAGONATE) tablet TABS 500 mg magnesium gluconate (MAGONATE) tablet TABS 500 mg 08/16 09:00:00 AM EST 500 mg Oral active 500 mg, Oral, Daily Standard, First dose on Wed08/29/19 at 0900, For 30 days [facility] Medication administered onsite 0.4 ML Enoxaparin sodium 100 MG/ML Prefi lled Syringe enoxaparin sodium (LOVENOX) injection 40 mg enoxaparin sodium (LOVENOX) injection 40 mg 08/29/2019 09:00:00 AM EST 40 mg Subcutaneous active 40 mg, Subcutaneous, Daily Standard, First dose on Wed08/29/19 at 0900, For 30 days [facility] Medication administered onsite sodium chloride 0.9 % bolus 500 mL [id number] 08/29/2019 07:15:00 AM EST 500 mL Intravenous completed 500 mL, Intravenous, Once, Wed08/29/19 at 0715, For 1 dose [facility] Medication administered onsite Levothyroxine Sodium 0.075 MG Oral Table t levothyroxine (SYNTHROID, LEVOTHROID) tablet 75 mcg levothyroxine (SYNTHROID, LEVOTHROID) tablet 75 mcg 06:00:00 AM EST 75 ug Oral active 75 mcg, Oral, Daily at 0600, First dose on Wed08/29/19 at 0600, For 30 days [facility] Medication administered onsite sennosides, NURSING HOME 8.6 MG Oral Tablet senna 8.6 MG 2 tablet sen na 8.6 MG 2 tablet 08/28/2019 10:00:00 PM EST 2 {tbl} Oral active 2 tablet, Oral, Nightly, First dose on Wed08/28/19 at 2200, For 30 days [facility] Medication administered onsite sodium chloride 0.9 % bolus 500 mL [id number] 08/28/2019 09:15:00 PM EST 500 mL Intravenous completed 500 mL, Intravenous, Once, Wed08/28/19 at 2115, For 1 dose [facility] Medication administered onsite Docusate Sodium 100 MG Oral Capsule docusate sodium (C OLACE) capsule 100 mg docusate sodium (COLACE) capsule 100 mg 08/28/2019 09:00:00 PM EST 100 mg Oral active 100 mg, Oral, 2 Times Daily, First dose on Wed08/28/19 at 2100, For 30 days [facility] Medication administered onsite 2 ML Metoclopramide 5 MG/ML Prefilled Sy ringe metoclopramide (REGLAN) injection 10 mg metoclopramide (REGLAN) injection 10 mg 08/28/2019 06:08:[address] 10 mg Intravenous active 10 mg, I ntravenous, Every 6 hours PRN, Nausea, Starting Wed08/28/19 at 1808, For 30 days [facility] Medication administered onsite sodium chloride (preservative free) [...] 1207, For 30 days [Order 6 End] [facility] Medication administered onsite Cefazolin 2000 MG Injection ceFAZolin (ANCEF) IVPB 2 g in dextrose (premix) ceFAZolin (ANCEF) IVPB 2 g in dextrose (premix) 08/28/2019 05:00:00 PM EST 2 g Intravenous completed 2 g, Int ravenous, Administer over 30 Minutes, Every 8 hours, First dose on Wed08/28/19 at 1700, For 2 doses [facility] Medication administered onsite Bisacodyl 10 MG Rectal Suppository bisacodyl (DULCOLAX ) suppository 10 mg bisacodyl (DULCOLAX) suppository 10 mg 08/28/2019 12:07:03 PM EST 10 mg Rectal active 10 mg, Rectal, Daily PRN, Constipation, Starting Wed08/28/19 at 1207, For 30 days [facility] Medication administered onsite Magnesium Hydroxide 80 MG/ML Oral Suspen silverio magnesium hydroxide (MILK OF MAGNESIA) 400 MG/5ML suspension 30 mL magnesium hydroxide (MILK OF MAGNESIA) 4 00 MG/5ML suspension 30 mL 08/28/2019 12:07:03 PM EST 30 mL Oral active 30 mL, Oral, Nightly PRN, Constipation, Starting Wed08/28/19 at 1207, For 30 days
If serum creatinine > 2 notify provider before administering.
[facility] Medication administered onsite Acetaminophen 325 MG Oral [...] mg from all sources in 24 hours.
[facility] Medication administered onsite Oxycodone Hydrochloride 5 MG Oral Tablet oxyCODONE (ROXICODONE) immediate release tablet 5 mg oxyCODONE (ROXICODONE) immediate release tablet 5 mg 08/28/2019 12:07:03 PM EST 5 mg Oral active 5 mg, Oral, Every 4 hours PRN, Moderate Pain (Pain Scale Score 4-6), Starting Wed08/28/19 at 1207, For 3 days
If no PROPERTY WORKER or when PROPERTY WORKER has been DC.
Oxycodone immediate release is limited to 10 mg per dose. Higher doses ( only) require Pain Service consultation and approval.
[facility] Medication administered onsite Oxycodone Hydrochloride 5 MG Oral Tablet oxyCODONE (ROXICODONE) immediate release tablet 10 mg oxyCODONE (ROXICODONE) immediate release tablet 10 mg 08/28/2019 12:07:03 PM EST 10 mg Oral active 10 mg, Oral, Every 4 hours PRN, Severe Pain (Pain Scale Score 7-10), or pre-painful procedure or activity, Starting Wed08/28/19 at 1207, For 3 days
If no PROPERTY WORKER or when PROPERTY WORKER has been DC.
Oxycodone immediate release is limited to 10 mg per dose. Higher doses ([facility] only) require Pain Service consultation and approval.
[facility] Medication administered onsite fentaNYL (SUBLIMAZE) (PF) injection 25 mcg [id number] 08/28/2019 12:07:03 PM EST 25 ug Intravenous active 25 m cg, Intravenous, Every 2 hours PRN, breakthrough pain, Starting Wed08/28/19 at 1207, For 3 days [facility] Medication administered onsite metaxalone 800 MG Oral Tablet metaxalone (SKELAXIN) ta blet 800 mg metaxalone (SKELAXIN) tablet 800 mg 08/28/2019 12:07:03 PM EST 800 mg Oral active 800 mg, Oral, Three Times Daily-PRN, Mu scle spasms, Starting Wed08/28/19 at 1207, For 30 days [facility] Medication administered onsite ondansetron (ZOFRAN) injection 4 mg [id number] 08/28/2019 12:07:0 3 PM EST 4 mg Intravenous active 4 mg, In travenous, Every 6 hours PRN, Nausea, Vomiting, Starting Wed08/28/19 at 1207, For 30 days [facility] Medication administered onsite POLYETHYLENE GLYCOL [id number] [...] due to potential increased risk for aspiration.
[facility] Medication administered onsite sodium phosphate 67.8 MG/ML / Sodium Kenan sphate, Monobasic 185 MG/ML Enema sodium phosphate (FLEET) enema (ADULT) 133 mL sodium phosphate (FLEET) enema (ADULT) 133 mL 08/28/2019 12:07:03 PM EST 133 mL Rectal active 133 mL, Rectal, Daily PRN, Constipation, Starting Wed08/28/19 at 1207, For 30 days [facility] Medication administered onsite NaCl infusion 0.9 % [id number] 08/28/2019 11:45:00 AM EST Intravenous active at 100 mL/hr, Intrav enous, Continuous, Starting Wed08/28/19 at 1145, For 30 days [facility] Medication administered onsite fentaNYL (SUBLIMAZE) (PF) injection 50 mcg [id number] 08/28/2019 11:19:53 AM EST 50 ug Intravenous aborted 50 m cg, Intravenous, Every 5 min PRN, Moderate Pain (Pain Scale Score 4-6), Starting Wed08/28/19 at 1119, For 4 doses, Recovery [facility] Medication administered onsite Calcium Chloride 0.0014 MEQ/ML / Potassi um Chloride 0.004 MEQ/ML / Sodium Chloride 0.103 MEQ/ML / Sodium Lactate 0.028 MEQ/ML Injectable Solution lactated ringers infusion lactated ringers infusion 08/28/2019 06:15:00 AM EST Intravenous aborted at 100 mL/hr, Intravenous, Continuous, Starting Wed08/28/19 at 0615, For 30 days
Keep Vein Open. Use Wide Tubing.
Pre-op [facility] Medication administered onsite gabapentin 100 MG Oral Capsule gabapentin (NEURONTIN) capsule 200 mg gabapentin (NEURONTIN) capsule 200 mg 08/28/2019 06:15:00 AM EST 200 mg Oral completed 200 mg, Oral, Once, Wed08/28/19 at 0615, For 1 dose, Pre-op [facility] Medication administered onsite bupivacaine (MARCAINE) 0.25 % 20 mL, morphine sulfate (PF) 1 0 mg syringe 08/28/2019 06:15:00 AM EST Infiltration complete d Infiltration, Once, Wed08/28/19 at 0615, For 1 dose, Pre-op [facility] Medication administered onsite Acetaminophen 325 MG Oral Tablet acetaminophen (TYLENO L) tablet 975 mg acetaminophen (TYLENOL) tablet 975 mg 08/28/2019 06:15:00 AM EST 97 5 mg Oral completed 975 mg, Oral, O nce, Wed08/28/19 at 0615, For 1 dose, Pre- op
Maximum daily dose of acetaminophen is 3,000 mg from all sources in 24 hours.
[facility] Medication administered onsite celecoxib 100 MG Oral Capsule celecoxib (CELEBREX) cap ledy 100 mg celecoxib (CELEBREX) capsule 100 mg 08/28/2019 06:15:00 AM EST 100 mg Oral completed 100 mg, Oral, Once, Wed08/28/19 at 0615, For 1 dose, Pre-op [facility] Medication administered onsite Aspirin 81 MG Oral Tablet Aspirin 81 MG Oral Tablet 81 mg Oral aborted Take 81 mg by mouth daily [facility] Insurance Providers Payer name Policy type / Coverage type Policy ID Covered democrat ID Covered democrat's relationship to delgado Policy Delgado Plan Information MEDICARE COMPLETE [id number] SP [id number] MEDICARE COMPLETE-[facility] O [id number] S [id number] [facility] [id number] SP [id number] [facility] MCRHMO [id number] SP [id number] MEDICARE COMPLETE [id number] SP [id number] [facility] MEDICARE COMPLETE G [id number] Self [id number] [facility] MEDICARE COMPLETE G [id number] Self [id number] [facility] ([facility] Commercial [id number] Self [id number] [employer] [id number] Self [id number] [employer] Commercial [id number] Self [id number] [facility] Medicare Solutions [facility] [id number] Self [id number] [employer] Commercial [id number] Self [id number] [employer] Commercial [id number] Self [id number] MEDICARE COMPLETE [id number] SP [id number] MEDICARE COMPLETE [id number] SP [id number] MEDICARE COMPLETE [id number] SP [id number] [facility] [id number] SP [id number] [facility] ([facility]) Commercial [id number] Self [id number] MEDICARE COMPLETE-[employer] O [id number] S [id number] [facility] ([facility]) Commercial [id number] Self [id number] [facility] ([facility]) Commercial [id number] Self [id number] MEDICARE COMPLETE [id number] SP [id number] [facility] ([facility]) Commercial [id number] Self [id number] [facility] Medicare Solutions Medigap Part B [id number] Self [id number] [employer] [id number] Self [id number] [employer] [id number] Self [id number] [facility] Medicare Solutions Medigap Part B [id number] Self [id number] [employer] [id number] Self [id number] [employer] [id number] Self [id number] MEDICARE COMPLETE-UHC O UNAVAILABLE S UNAVAILABLE [facility] Medicare Solutions [facility] [id number] Self [id number] [facility] U/W Commercial [id number] Self [id number] [facility] U/W Commercial [id number] Self [id number] [facility] U/W Commercial [id number] Self [id number] [place] [id number] SP DZVA [id number] [place] PPO 302/[phone] [id number] SP [id number] [place] PPO 302/307 [id number] SP [id number] BCBS [place] Ppo U/W Medigap Part B [id number] Family Dependent [id number] [place] Anthembcbs Ppo Commercial [id number] Family Dep endent [id number] [facility] U/W Commercial [id number] Self [id number] [place]BS [place] PPO 302/307 [id number] SP [id number] [facility] U/W Commercial Self [place] [phone] [id number] SP [id number] Problems, Conditions, and Diagnoses Code Display Name Description Problem Type Effective Dates Data Source(s) 014976073 Cardiac pacemaker in situ Cardiac pacemaker in situ Pr oblem 09/20/2020 12:00:00 AM EST MEDENT ([facility]) J45.909 Unspecified asthma, uncomplicated Unspecified as thma, uncomplicated Problem 08/30/2019 12:00:00 AM EST NETSMART ([facility]) Z91.81 History of falling History of falling Problem 0 12:00:00 AM EST NETSMART ([facility]) 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 custodial (cu rrent) use of aspirin Problem 08/30/2019 12:00:00 AM EST NETSMART ([facility]) Z96.641 Presence of right artificial hip joint P resence of right artificial hip joint Problem 08/30/2019 12:00:00 AM EST GIOVANNI ([facility]) Z96.641 Presence of right artificial hip joint P resence of right artificial hip joint Diagnosis 04/03/2020 09:08:49 AM EDT [facility] M16.11 Unilateral primary osteoarthritis, right hip Unilateral primary osteoarthritis, right hip Diagnosis 08/28/2019 11:35:36 AM [facility] M16.9 Osteoarthritis of hip, unspecified Osteoarthriti s of hip, unspecified Diagnosis 08/28/2019 05:40:00 AM [facility] OA (osteoarthritis) of hip OA (osteoarthritis) of hip Diagnosis 08/28/2019 05:40:00 AM [facility] Primary osteoarthritis of right hip [M16 .11] Primary osteoarthritis of right hip [M16.11] Diagnosis 08/28/2019 05:40:00 AM [facility] Surgeries/Procedures Procedure Description Date Indications Data Source(s) Electrocardiogram Complete 09/04/2019 12:00:00 AM LUCIAN GEE ([facility]) POCT GLUCOSE, DOCKED POCT GLUCOSE, DOCKED Routine 08/30/2019 11:49 AM EST 08/30/2019 04:49:00 PM [facility] POCT GLUCOSE, DOCKED POCT GLUCOSE, DOCKED Routine 08/30/2019 8:01 AM EST 08/30/2019 01:01:00 PM [facility] BLOOD COUNT COMPLETE AUTOMATED CBC Routine 08/30/2019 5:01 A M EST 08/30/2019 10:01:00 AM [facility] GLUCOSE QUANTITATIVE BLOOD XCPT REAGENT STRIP POCT GLUCOSE, DOC ELIASD Routine 08/29/2019 9:41 PM EST 08/30/2019 02:41:00 AM [facility] GLUCOSE QUANTITATIVE BLOOD XCPT REAGENT STRIP POCT GLUCOSE, DOC ELIASD Routine 08/29/2019 4:37 PM EST 08/29/2019 09:37:00 PM [facility] GLUCOSE QUANTITATIVE BLOOD XCPT REAGENT STRIP POCT GLUCOSE, DOC ELIASD Routine 08/29/2019 12:21 PM EST 08/29/2019 05:21:00 PM [facility] GLUCOSE QUANTITATIVE BLOOD XCPT REAGENT STRIP POCT GLUCOSE, LOGAN GRIFFIND Routine 08/29/2019 8:35 AM EST 08/29/2019 01:35:00 PM [facility] HEPATITIS C ANTIBODY HEPATITIS C ANTIBODY Routine 08/29/2019 5:45 AM EST 08/29/2019 10:45:00 AM [facility] BLOOD COUNT COMPLETE AUTOMATED CBC Routine 08/29/2019 5:45 A M EST 08/29/2019 10:45:00 AM [facility] BASIC METABOLIC PANEL CALCIUM TOTAL BASIC METABOLIC PANEL Routi ne 08/29/2019 5:45 AM EST 08/29/2019 10:45:00 AM [facility] GLUCOSE QUANTITATIVE BLOOD XCPT REAGENT STRIP POCT GLUCOSE, DOC KED Routine 08/28/2019 9:04 PM EST 08/29/2019 02:04:00 AM [facility] GLUCOSE QUANTITATIVE BLOOD XCPT REAGENT STRIP POCT GLUCOSE, DOC KED Routine 08/28/2019 4:56 PM EST 08/28/2019 09:56:00 PM [facility] GLUCOSE QUANTITATIVE BLOOD XCPT REAGENT STRIP POCT GLUCOSE, DOC KED Routine 08/28/2019 12:21 PM EST 08/28/2019 05:21:00 PM [facility] RADIOLOGIC EXAMINATION PELVIS 1/2 VIEWS XR PELVIS 1-2 VIEWS 721 70 Routine 08/28/2019 11:53 AM EST 08/28/2019 04:53:10 PM [facility] LEVEL I SURG PATHOLOGY GROSS EXAMINATION ONLY SURGICA L PATHOLOGY EXAM ([facility] ONLY) Routine 08/28/2019 11:10 AM EST 08/28/2019 04:10:00 PM [facility] [id number] ARTHROPLASTY, ACETABULAR/PROXIMAL FEMORAL PROSTHETIC REPLACEMENT, W/WO AUTOGRAFT/ALLOGRAFT [id number] ARTHROPLASTY, ACETABULAR/PROXIMAL FEMORAL PROSTHETIC REPLACEMENT, W/WO AUTOGRAFT/ALLOGRAFT 08/28/2019 9:27 AM ES T Primary osteoarthritis of right hip 08/28/2019 02:27:0 0 PM EST - 08/28/2019 04:58:00 PM EST Primary osteoarthritis of right hip [facility] Primary osteoarthritis of right hip US GUIDED PERIPHERAL NERVE BLOCK (OR ONLY) US GUIDED PERIPHERAL NERVE BLOCK (OR ONLY) Routine 08/28/2019 7:38 AM EST 08/28/2019 12:38 :00 PM [facility] GLUCOSE QUANTITATIVE BLOOD XCPT REAGENT STRIP POCT GLUCOSE, DOC KED Routine 08/28/2019 6:55 AM EST 08/28/2019 11:55:00 AM [facility] Results ID Date Data Source [id number] 09/12/2020 12:31:00 AM EST JENNIFEROH Name Value Range Interpretation Code Description Data Sherron rce(s) Supporting Document(s) SARS coronavirus 2 RNA [Presence] in Res piratory specimen by DWAYNE with probe detection POSITIVE NYSDOH This lab was ordered by [facility] a nd reported by [facility]. ID Date Data Source [id number] 09/11/2020 11:27:00 PM EST MEDENT ([facility]) Name Value Range Interpretation Code Description Data Sherron rce(s) Supporting Document(s) Glucose [Mass/volume] in Capillary blood by Glucometer 136 mg/dL 80-115 Above high normal [facility] ([facility]) ID Date Data Source [id number] 09/11/2020 11:00:00 PM EST MEDENT ([facility]) Name Value Range Interpretation Code Description Data Sherron rce(s) Supporting Document(s) Lactate [Mass/volume] in Serum or Plasma 1.9 mmol/L 0.4-2.0 Normal (applies to non-numeric results) [facility] ([facility]) Y/N query for Sepsis Lactate Rule: Y ID Date Data Source [id number] 09/11/2020 10:57:00 PM EST MEDENT ([facility]) Name Value Range Interpretation Code Description Data Sherron rce(s) Supporting Document(s) White Blood Count 6.1 10 4.0-10.0 Normal (applies to non-numeri c results) [facility] ([facility]) Red Blood Count 4.20 10 4.00-5.40 Normal (applies to non-numeric results) [facility] ([facility]) Hemoglobin 12.9 g/dL 12.0-15.5 Normal (applies to non-numeric resul ts) [facility]) Hematocrit 38.7 % 36.0-47.0 Normal (applies to non-numeric resul ts) [facility] ([facility]) Mean Corpuscular Volume 92.1 fl 80.0-96.0 Normal ( applies to non-numeric results) [facility] ([facility]) Mean Corpuscular Hemoglobin 30.7 pg 27.0-33.0 Norm al (applies to non-numeric results) MED[facility] ([facility]) Red Cell Distribution Width 14.6 % 11.5-14.5 Above high normal [facility] ([facility]) Mean Corpuscular HGB Conc 33.3 g/dL 32.0-36.5 Normal (applies to non-numeric results) [facility] ([facility]) Platelet Count, Automated 241 10 150-450 Normal (applies to non-numeric results) [facility] ([facility]) Neutrophils % 57.5 % 36.0-66.0 Normal (applies to non-numeric re sults) [facility] ([facility]) Lymph % 29.3 % 24.0-44.0 Normal (applies to non-numeric resul ts) [facility] ([facility]) [place] % 9.5 % 0.0-5.0 Above high normal [facility] ([facility]) Eos % 2.5 % 0.0-3.0 Normal (applies to non-numeric resul ts) [facility] ([facility]) Baso % 1.0 % 0.0-1.0 Normal (applies to non-numeric resul ts) [facility] ([facility]) Immature Granulocyte % 0.2 % 0-3.0 Normal (applies to non-n umeric results) [facility] ([facility]) Nucleated Red Blood Cell % 0.0 % 0-0 Normal (applies to n on-numeric results) [facility] ([facility]) Neutrophils # 3.5 10 1.5-8.5 Normal (applies to non-numeric re sults) [facility] ([facility]) Lymph # 1.8 10 1.5-5.0 Normal (applies to non-numeric resul ts) [facility] ([facility]) [place] # 0.6 10 0.0-0.8 Normal (applies to non-numeric resul ts) [facility] ([facility]) Eos # 0.2 10 0.0-0.5 Normal (applies to non-numeric resul ts) [facility] ([facility]) Baso # 0.1 10 0.0-0.2 Normal (applies to non-numeric resul ts) [facility] ([facility]) ID Date Data Source [id number] 09/11/2020 10:57:00 PM EST MEDENT ([facility]) Name Value Range Interpretation Code Description Data Sherron rce(s) Supporting Document(s) Appearance, Urine RFX Laboratory test result Nor mal (applies to non-numeric results) [facility] ([facility]) Color, Urine RFX Laboratory test result Normal ( applies to non-numeric results) [facility] ([facility]) Specific [place] Ur Auto RFX 1.008 1.002-1.035 Nor mal (applies to non-numeric results) [facility] ([facility]) PH,Urine RFX 7.0 units 5.0-9.0 Normal (applies to non-numeric res ults) [facility]) Glucose, Urine (Ua) Auto RFX Laboratory test result Normal (applies to non- numeric results) [facility] ([facility]) Protein, Urine Auto RFX Laboratory test result N ormal (applies to non-numeric results) [facility] ([facility]) Ketone, Urine Auto RFX Laboratory test result Above high n ormal MEDENT ([facility]) Urobilinogen, Urine Auto RFX 0.2 mg/dL 0.0-2.0 Nor mal (applies to non-numeric results) [facility] ([facility]) Bilirubin, Urine Auto RFX Laboratory test result Normal (applies to non- numeric results) [facility] ([facility]) Nitrite, Urine Auto RFX Laboratory test result N ormal (applies to non-numeric results) [facility] ([facility]) Leukocyte Esterase Ur Auto RFX Laboratory test result Normal (applies to non- numeric results) [facility] ([facility]) Blood, Urine Blood RFX Laboratory test result No rmal (applies to non-numeric results) [facility]) WBC, Urine Auto RFX 0 /HPF 0-3 Normal (applies to non-nume patricia results) [facility] ([facility]) RBC, Urine Auto RFX 1 /HPF 0-3 Normal (applies to non-nume patricia results) [facility] ([facility]) Bacteria, Urine Auto RFX Laboratory test result Normal (applies to non-numeric results) [facility] ([facility]) Squam Epithelial Cell Ur Aurfx 0 /HPF 0-6 N ormal (applies to non-numeric results) [facility]) Hyaline Cast, Urine Auto RFX 0 /LPF 0-1 Normal (appl ies to non-numeric results) [facility] ([facility]) ID Date Data Source [id number] 09/11/2020 10:57:00 PM EST MEDENT ([facility]) Name Value Range Interpretation Code Description Data Sherron rce(s) Supporting Document(s) Amphetamines Level Urine Laboratory test result Normal (applies to non-numeric results) [facility] ([facility]) Barbiturates Urine Laboratory test result Normal (applies to non-numeric results) [facility]) Benzodiazepines Urine Laboratory test result Nor mal (applies to non-numeric results) [facility] ([facility]) Cannabinoids Urine Laboratory test result Normal (applies to non-numeric results) [facility] ([facility]) Cocaine Metabolite Urine Laboratory test result Normal (applies to non-numeric results) [facility] ([facility]) Methadone Urine Laboratory test result Normal (a pplies to non-numeric results) [facility] ([facility]) Opiates Urine Laboratory test result Normal (applies t o non-numeric results) [facility] ([facility]) Phencyclidine Urine Laboratory test result Tiffanie l (applies to non-numeric results) [facility] ([facility]) ALL PRESUMPTIVE POSITIVE FINDINGS AR E UNCONFIRMED THRESHOLD IN NG/ML AMPHETAMINES/METHAMPHET 1000 BARBITURATES [...] CLOSELY RELATED COMPOUNDS PLEASE CALL THE LAB. ID Date Data Source [id number] 09/11/2020 10:57:00 PM EST MEDENT ([facility]) Name Value Range Interpretation Code Description Data Sherron rce(s) Supporting Document(s) CPK Creatine Phosphokinase 79 U/L 26-192 Tiffanie l (applies to non-numeric results) MED[facility] ([facility]) MB/CK Relative Index 1.27 Normal (applies to non-num davonte results) [facility]) <content>DIAGNOSIS CRITERIA</content>
<content>MMB ng/ml Relative Index (RI)</content>
<content>NON-AMI < or = 5 N/A</content>
<content>PANIAGUA ZONE > 5 < or = 4</content>
<content>AMI > 5 > 4</content>
<content></content> CK-MB Value Mass Laboratory test result Normal ( applies to non-numeric results) [facility] ([facility]) Troponin I Laboratory test result Normal (applies to non-n umeric results) [facility] ([facility]) <content>Troponin I Reference Interval f or [employer]ens [place] LOCI:</content>
<content></content>
<content>99th Percentile= 0.00-0.045 ng/ml</content>
<content></content>
<content>Risk Stratification:</content>
<content><= 0.10 ng/ml Decreased Risk for Adverse Clinical</content>
<content>Events.</content>
<content>0.10-1.50 ng/ml Increased Risk for Adverse Clinical</content>
<content>Events. Evaluation of additional</content>
<content>criterion and/or repeat testing in 2-6</content>
<content>hours is suggested to rule out myocardial</content>
<content>damage.</content>
<content>>= 1.50 ng/ml Indicative of Myocardial Injury.</content>
<content></content> ID Date Data Source [id number] 09/11/2020 10:57:00 PM EST MEDENT ([facility]) Name Value Range Interpretation Code Description Data Sherron rce(s) Supporting Document(s) Glucose, Fasting 129 mg/dL 70-100 Above high normal M EDENT ([facility]) Blood Urea Nitrogen 19 mg/dL 7-18 Above high normal [facility] ([facility]) Creatinine For GFR 0.88 mg/dL 0.55-1.30 Normal (applies to non -numeric results) [facility] ([facility]) Glomerular Filtration Rate Laboratory test result Normal (applies to non- numeric results) [facility] ([facility]) <content>Units are mL/min/1.73 m2</content>
<content></content>
<content>Chronic Kidney Disease Staging per NKF:</content>
<content></content>
<content>Stage I & II GFR >=60 Normal to Mildly Decreased</content>
<content>Stage III GFR 30- 59 Moderately Decreased</content>
<content>Stage IV GFR 15-29 Severely Decreased</content>
<content>Stage V GFR <15 Very Little GFR Left</content>
<content>ESRD GFR <15 on EMERGENCY PLANNER</content>
<content></content> Sodium Level 139 meq/L 136-145 Normal (applies to non-numeric res ults) [facility] ([facility]) Potassium Serum 3.3 meq/L 3.5-5.1 [facility] Chloride Level 105 meq/L 98-107 Normal (applies to non-numeric r esults) [facility]) Anion Gap 10 meq/L 8-16 Normal (applies to non-numeric resul ts) [facility] ([facility]) Carbon Dioxide Level 24 meq/L 21-32 Normal (applies to non-num davonte results) [facility] ([facility]) Calcium Level 9.7 mg/dL 8.8-10.2 Normal (applies to non-numeric re sults) [facility] ([facility]) ID Date Data Source [id number] 09/11/2020 10:57:00 PM EST MEDENT ([facility] Name Value Range Interpretation Code Description Data Sherron rce(s) Supporting Document(s) Ethanol [Mass/volume] in Serum or Plasma Laboratory test result 0.000-0.010 Normal (applies to non-numeric results) [facility] ([facility]) Thyrotropin [Units/volume] in Serum or Plasma 0.643 uIU/ML 0. 358-3.740 Normal (applies to non-numeric results) [facility] ([facility]) Magnesium [Mass/volume] in Serum or Plasma 2.1 mg/dL 1.8-2 .4 Normal (applies to non-numeric results) [facility] ([facility]) ID Date Data Source [id number] 09/11/2020 12:00:00 AM [facility] Rosie Bond DO Patient Name: VINAY [id number] Date of : 1950 3 Date of Exam: 09/11/2020POP Rivera [id number]#: Fax: [phone] EXAM: CT ANGIOGRAPHY, CHESTCLINICAL INFORMATION: [...] Other findings as described above.Accredited by the [employer] in [place].KOFFI Mckenna/Nohelia you for referring KEY SANZ to our office. Electronically Signed - DENISE JOLLY DO 09/11/20 17:26 Name Value Range Interpretation Code Description Data Sherron rce(s) Supporting Document(s) ID Date Data Source [id number] 09/09/2020 09:07:00 AM EST MEDENT ([facility]) Name Value Range Interpretation Code Description Data Sherron rce(s) Supporting Document(s) Thyroid Stimulating Hormone 0.387 ME DENT ([facility]) Free T4 1.46 [facility] ([facility] Hemoglobin A1c/Hemoglobin.total in Blood 5.4 MEDENT ([facility]) ID Date Data Source [id number] 09/09/2020 09:07:00 AM EST [facility] Name Value Range Interpretation Code Description Data Sherron rce(s) Supporting Document(s) White Blood Count 4.8 4.0-10.0 [facility] ([facility]) Platelets 256 150-450 [facility] Red Blood Count 4.51 4.00-5.40 MED[facility] ([facility]) Hemoglobin 13.8 MED[facility] ([facility]) Hematocrit 41.8 MEDENT ([facility]) ID Date Data Source [id number] 09/09/2020 09:07:00 AM EST [facility] Name Value Range Interpretation Code Description Data Sherron rce(s) Supporting Document(s) D-Dimer QN 519.01 MEDENT ([facility]) ID Date Data Source [id number] 09/09/2020 09:07:00 AM EST [facility] Name Value Range Interpretation Code Description Data Sherron rce(s) Supporting Document(s) Cholesterol 307 [facility] ([facility]) Triglycerides 68 MED[facility] ([facility]) Chol/HDL Ratio 4.514 MED[facility] ([facility]) Cholesterol in LDL [Mass/volume] in Serum or Plasma by calculation 22 5 MED[facility] ([facility]) HDL 68 [facility] ID Date Data Source [id number] 09/09/2020 09:07:00 AM EST [facility] Name Value Range Interpretation Code Description Data Sherron rce(s) Supporting Document(s) Alanine aminotransferase [Enzymatic activity/volume] in Serum or Pl asma 16 MEDENT ([facility]) Albumin [Mass/volume] in Serum or Plasma 3.8 MED[facility] ([facility]) Calcium [Mass/volume] in Serum or Plasma 10.0 MED[facility] ([facility]) Chloride [Moles/volume] in Serum or Plasma 100 [facility] ([facility]) Carbon dioxide, total [Moles/volume] in Serum or Plasma 90 [facility] ([facility]) Protein [Mass/volume] in Serum or Plasma 6.7 [facility] ([facility]) Potassium [Moles/volume] in Serum or Plasma 4.9 [facility] ([facility]) Alkaline phosphatase [Enzymatic activity/volume] in Serum or Plasma 3 9 [facility] ([facility]) Aspartate aminotransferase [Enzymatic activity/volume] in Serum or Plasma 5 [facility] ([facility]) Sodium 139 [facility] ([facility] Urea nitrogen [Mass/volume] in Serum or Plasma 16 [facility] ([facility]) Glucose 110 70-100 [facility] Creatinine For GFR 0.83 [facility] ([facility]) ID Date Data Source [id number] 09/09/2020 09:00:00 AM EST MEDENT ([facility] Name Value Range Interpretation Code Description Data Sherron rce(s) Supporting Document(s) Fibrin D-dimer FEU [Mass/volume] in Platelet poor plasma 519.01 ng/mL Above high normal [facility] ID Date Data Source [id number] 09/09/2020 09:00:00 AM EST MEDENT ([facility]) Name Value Range Interpretation Code Description Data Sherron rce(s) Supporting Document(s) Triglycerides Level 68 mg/dL Normal (applies to non-nume patricia results) [facility] ([facility]) Cholesterol Level 307 mg/dL Above high normal [facility] ([facility]) HDL Cholesterol 68 mg/dL Normal (applies to non-numeric results) [facility] ([facility]) LDL Cholesterol 225 mg/dL Above high normal ME DENT ([facility]) Non-HDL-C 239 mg/dL Normal (applies to non-numeric resul ts) [facility]) Cholesterol Risk Ratio 4.514 Normal (applies to non-n umeric results) [facility]) ID Date Data Source [id number] 09/09/2020 09:00:00 AM EST MEDENT ([facility]) Name Value Range Interpretation Code Description Data Sherron rce(s) Supporting Document(s) Hemoglobin A1c 5.4 % Normal (applies to non-numeric r esults) [facility] ([facility]) <content>REFERENCE RANGES:</content><br/ ><content></content>
<content><=5.6% NORMAL</content>
<content>5.7-6.4% SUGGESTS IMPAIRED GLUCOSE METABOLISM/PREDIABETIC</content>
<content>>= 6.5% ABNORMAL</content>
<content></content> Estimated Average Glucose 108 mg/dL 60-110 Normal (applies to non-numeric results) [facility] ([facility]) ID Date Data Source [id number] 09/09/2020 09:00:00 AM EST [facility] Name Value Range Interpretation Code Description Data Sherron rce(s) Supporting Document(s) Glucose, Fasting 110 mg/dL 70-100 Above high normal [facility] Creatinine For GFR 0.83 mg/dL 0.55-1.30 Normal (applies to non -numeric results) [facility] ([facility]) Blood Urea Nitrogen 16 mg/dL 7-18 Normal (applies to non-nume patricia results) [facility] ([facility]) Sodium Level 139 meq/L 136-145 Normal (applies to non-numeric res ults) [facility] ([facility]) Glomerular Filtration Rate Laboratory test result Normal (applies to non- numeric results) [facility] ([facility]) <content>Units are mL/min/1.73 m2</content>
<content></content>
<content>Chronic Kidney Disease Staging per NKF:</content>
<content></content>
<content>Stage I & II GFR >=60 Normal to Mildly Decreased</content>
<content>Stage III GFR 30- 59 Moderately Decreased</content>
<content>Stage IV GFR 15-29 Severely Decreased</content>
<content>Stage V GFR <15 Very Little GFR Left</content>
<content>ESRD GFR <15 on EMER[employer]Y PLANNER</content>
<content></content> Chloride Level 105 meq/L 98-107 Normal (applies to non-numeric r esults) [facility] ([facility]) Potassium Serum 4.9 meq/L 3.5-5.1 Normal (applies to non-numeric results) [facility] ([facility]) Carbon Dioxide Level 30 meq/L 21-32 Normal (applies to non-num davonte results) [facility] Anion Gap 4 meq/L 8-16 Below low normal [facility] ( [facility]) Calcium Level 10.0 mg/dL 8.8-10.2 Normal (applies to non-numeric re sults) [facility] ([facility]) Alt/SGPT 16 U/L 12-78 Normal (applies to non-numeric resul ts) [facility] ([facility]) Ast/Sgot 5 U/L 7-37 Below low normal [facility]) Alkaline Phosphatase 39 U/L 45-117 Below low normal [facility]) Bilirubin,Total 0.5 mg/dL 0.2-1.0 Normal (applies to non-numeric results) [facility] ([facility]) Total Protein 6.7 GM/DL 6.4-8.2 Normal (applies to non-numeric re sults) [facility] ([facility]) Albumin 3.8 GM/DL 3.2-5.2 Normal (applies to non-numeric resul ts) [facility] ([facility]) Albumin/Globulin Ratio 1.3 1.2-2.2 Normal (applies to non-n umeric results) [facility] ([facility]) ID Date Data Source [id number] 09/09/2020 09:00:00 AM EST [facility] ([facility]) Name Value Range Interpretation Code Description Data Sherron rce(s) Supporting Document(s) Thyroid Stimulating Hormone 0.387 uIU/ML 0.358-3.740 Norm al (applies to non- numeric results) [facility] ([facility]) Free T4 1.46 ng/dL 0.76-1.46 Normal (applies to non-numeric resul ts) [facility] ID Date Data Source [id number] 09/09/2020 09:00:00 AM EST [facility] ([facility]) Name Value Range Interpretation Code Description Data Sherron rce(s) Supporting Document(s) Calcidiol [Mass/volume] in Serum or Plasma 67.0 ng/mL 30.0- 100.0 Normal (applies to non-numeric results) [facility] ID Date Data Source [id number] 09/09/2020 09:00:00 AM EST [facility] ([facility]) Name Value Range Interpretation Code Description Data Sherron rce(s) Supporting Document(s) Red Blood Count 4.51 10 4.00-5.40 Normal (applies to non-numeric results) [facility] White Blood Count 4.8 10 4.0-10.0 Normal (applies to non-numeri c results) [facility]) Hemoglobin 13.8 g/dL 12.0-15.5 Normal (applies to non-numeric resul ts) [facility] ([facility]) Hematocrit 41.8 % 36.0-47.0 Normal (applies to non-numeric resul ts) [facility] Mean Corpuscular Volume 92.7 fl 80.0-96.0 Normal ( applies to non-numeric results) [facility]) Mean Corpuscular Hemoglobin 30.6 pg 27.0-33.0 Norm al (applies to non-numeric results) [facility]) Mean Corpuscular HGB Conc 33.0 g/dL 32.0-36.5 Normal (applies to non-numeric results) [facility] Red Cell Distribution Width 14.5 % 11.5-14.5 Norm al (applies to non-numeric results) [facility] ([facility]) Platelet Count, Automated 256 10 150-450 Normal (applies to non-numeric results) [facility] ([facility]) Neutrophils % 54.2 % 36.0-66.0 Normal (applies to non-numeric re sults) [facility] ([facility]) Lymph % 32.6 % 24.0-44.0 Normal (applies to non-numeric resul ts) [facility] ([facility]) [place] % 8.9 % 0.0-5.0 Above high normal [facility] ([facility]) Eos % 3.1 % 0.0-3.0 Above high normal [facility] ([facility]) Baso % 1.0 % 0.0-1.0 Normal (applies to non-numeric resul ts) [facility] ([facility]) Immature Granulocyte % 0.2 % 0-3.0 Normal (applies to non-n umeric results) [facility] ([facility]) Nucleated Red Blood Cell % 0.0 % 0-0 Normal (applies to n on-numeric results) [facility] ([facility]) Neutrophils # 2.6 10 1.5-8.5 Normal (applies to non-numeric re sults) [facility] ([facility]) Lymph # 1.6 10 1.5-5.0 Normal (applies to non-numeric resul ts) [facility] ([facility]) Eos # 0.2 10 0.0-0.5 Normal (applies to non-numeric resul ts) [facility] ([facility]) [place] # 0.4 10 0.0-0.8 Normal (applies to non-numeric resul ts) [facility] ([facility]) Baso # 0.1 10 0.0-0.2 Normal (applies to non-numeric resul ts) [facility] ([facility]) ID Date Data Source [id number] 08/20/2020 02:36:00 PM EST [facility] ([facility]) Name Value Range Interpretation Code Description Data Sherron rce(s) Supporting Document(s) Respiratory Panel Laboratory test result [facility]) This respiratory PCR panel detects Influ [...] SARS-CoV-2 (COVID 19) ID Date Data Source [id number] 08/20/2020 02:36:00 PM EST [facility] Name Value Range Interpretation Code Description Data Sherron rce(s) Supporting Document(s) Respiratory pathogens identified [Type] in Nasopharynx by Probe and target amplification method SARS-CoV-2 (COVID 19) [facility] This lab was ordered by [facility] a nd reported by [facility]. ID Date Data Source [id number] 04/04/2020 07:18:57 AM EDT [facility] XR HIP- UNILAT, 2-3 VIEWS [id number] RE SULTInterpreted by:GHANSHYAM Wright AND RIGHT HIPCLINICAL STATEMENT: Status post right [...] rce(s) Supporting Document(s) ID Date Data Source [id number] 04/03/2020 10:05:57 AM EDT [facility] Name Value Range Interpretation Code Description Data Sherron rce(s) Supporting Document(s) Progress Note [facility] IVXWEk2xZyVIPsSi84/LNBxlFTOex4CeNNwmVBk9SMdpUXDgF0OrTXL7qD0nICS4DKdSIbTpSrOfTOX0 lbm [file] DQogICAgICAgICAgICAgICAgICAgICAgICAgICAgICAgICAgICAgICAgICAgICAgICAgICAgICAgICAg ICAgICAgICAgICAgICAgICAgICAgICAgICAgICAgIC AgICAgICAgICAgDQogICAgICAgICAgICAgICAgICAgICAgICAgICAgICAgICAgICAgICAgICAgICAgIC AgICAgICAgICAgICAgICAgICAgICAgICAgICAgICAgICAgICAgICAgICAgICAgICAgICAgDQogICAgIC AgICAgICAgICAgICAgICAgICAgICAgICAgICAgICAg ICAgICAgICAgICAgICAgICAgICAgICAgICAgICAgICAgICAgICAgICAgICAgICAgICAgICAgICAgICAg ICAgDQogICAgICAgICAgICAgICAgICAgICAgICAgICAgICAgICAgICAgICAgICAgICAgICAgICAgICAg ICAgICAgICAgICAgICAgICAgICAgICAgICAgICAgIC AgICAgICAgICAgICAgDQogICAgICAgICAgICAgICAgICAgICAgICAgICAgICAgICAgICAgICAgICAgIC AgICAgICAgICAgICAgICAgICAgICAgICAgICAgICAgICAgICAgICAgICAgICAgICAgICAgICAgDQogIC AgICAgICAgICAgICAgICAgICAgICAgICAgICAgICAg ICAgICAgICAgICAgICAgICAgICAgICAgICAgICAgICAgICAgICAgICAgICAgICAgICAgICAgICAgICAg ICAgICAgDQogICAgICAgICAgICAgICAgICAgICAgICAgICAgICAgICAgICAgICAgICAgICAgICAgICAg ICAgICAgICAgICAgICAgICAgICAgICAgICAgICAgIC AgICAgICAgICAgICAgICAgDQogICAgICAgICAgICAgICAgICAgICAgICAgICAgICAgICAgICAgICAgIC AgICAgICAgICAgICAgICAgICAgICAgICAgICAgICAgICAgICAgICAgICAgICAgICAgICAgICAgICAgDQ ogICAgICAgICAgICAgICAgICAgICAgICAgICAgICAg ICAgICAgICAgICAgICAgICAgICAgICAgICAgICAgICAgICAgICAgICAgICAgICAgICAgICAgICAgICAg ICAgICAgICAgDQogICAgICAgICAgICAgICAgICAgICAgICAgICAgICAgICAgICAgICAgICAgICAgICAg ICAgICAgICAgICAgICAgICAgICAgICAgICAgICAgIC ChPFHvYIZyKHJjYIKhCCZsEJMoLBj7L8enEKXdROUxQS2aMVh5Jo2+PWbRMwErBCA3ayTtaO2NBZ9fb3 InSGhhZMTci9NeOIg8CF1UDVXwDJeqDL2VNKiqgo4UGVUoIMRacIBOh2geFoFjHUY9HORnXpbnZG2FSM YjX3hdhsSdBPCqMJQEGWmoLHKSNV0TEgDiF5JcpS17 IDINCj4+CRkzyuPjNpsJFbBwIFKoh8FfBIx7NE7XOKGhCsrii4AmZVStTIKFRFwjMF6EGVP9ZNDuDKQs Py5ILMCqX590ohTbDO8TCg3UPfGzYR6bro0JZAVxTEZjPbzOXpq9FFcwZW9RaGIqFPxXfc3aoeYacbXJ o6KopuEshOVVRP1gOEihNFQ6xXTrGsrmq3pqnlvhER AfUSYvFD3tQZ2bNXMrELN4UdYjTPLAIG9TWYTqPXJozFHyOZUfYBGFKG8DUYpdPVW3WEThorHjmMScEO icII4MVHHjdbXyOMWvFMEFVJr+Re7CRD3te5BwANy6GfNxQM3tqr6KNFvLIyOnO2O3oRRxW6B5CKltLz 6IYMDbCYEiOvhqBOWDLCtyDU0XRG7fhbY1AJ6HxXXp ECFjBJFliJCtBEc4S82fdFPkYMqtNY6HQFC+Marcia+Sf8DRDImLRDeJCIoKoWvPURLVlHeH2AlN6ATe4Mw T2GeOP99iHhiapPhTWvcKO7LML4jCFPwBNSMKY3LfTExhJ1shwI1HLZiHVLXCoUjY99weXQlSEZrXCS8 ISWsVe6JYDYuH4JbsoUslBggkrJxLJXwFMOFQZ6JGJ bydgAkpLNdjLwaOJ39nRymWO6ASd5EEqMvOS3vev1MnAJgNm9GSVG4Ry2HVHOtVVVyIJWcQIU3EMXjXy HlDYknLTSjIWEgJRJ5CZXwNCUaVG3PSlWyCARsWOw3FZMeYGGxYERwqo6KJEMpLRT8SUTiTHMiYWZjYL TfLGxbLLXgUSQkLCG0WZRjRBKgGF0MPmCkPCUmYMM4 QNGlNQYjSRJwfl0ACEZfNIHjLOZ1RRRhRPShMWIfEEdxHZAfOKB4Jjs1IAZlXBAkTL8ZMeIsBDBnHMQ9 CCAeLGAqKRYxkj4XVDBhJULfVFj0QNQzBGKpBCDsBLkbOQZmSTM2NMJ9JATaQVYiYZ0TWqNcEPQbEJZs WxunCQOjZEJvsw6SDWZjKYSnTiB7NfPdIGDdVGPdCR yiAAToAVK9Fuz0LASfAOOvHW6VKcPuVBXaBYc0PWKyNTRkRFXnwv4WEVQuMSOdEYo5HZPiCZDkZDYmOT loLCQqZXG9TrQ1OTKtHAHsYF6KWwUjBGStPKt2EfTbFYZfIQLosq8JKVUmSPOtHHlaLqTxMTVrVNAzXK umYPOwFVV3ANVuJKDuROCmPN3WPsUhRGJoStS7UNEb DPFaNARiix8VODYxMMJfOZi7BVIuPFKsNHPdBCgoYBKjVFKePJF8TRXwBTArGU4YKzUgUJXsCxDfVLTh GDSbAEJkfq2JJMZeJYSuSsY1ZiNnORLqQGEmIBmgNJKhCSEfHSFnGUHmMSIeVZ3ATqFfGXSxSZH0KTau GIAlEXBgqu4MGMPoBEV7OWCrAEMgCMNlVWNdFCgmPP NgYXUfYYEcQNCsISDmTH1OJkChMYOcJJT6JUVsGAIbLMQzeo3FVKNjLTL1ESj8LOFsXTFtAZBzCTriER YcHQJ2XIO5HRBjAXArKU1PVaPgDFYeBOqyZoZtGKJmSGMoxp0TWAPnQQE5MjJ8KzGeGDKoMJZjMAjkKV EpMYM0CpS3TTHlWQUkLZ4LMxStFBIaKNz3STVhZNHa SYPhpd9MWYQvPIL8KQLsImOfOSCuMUZoNGdwCRQkZXE6HbKbMFKnCXXcLY8TMnCePCPdFWmbKPbsCRTn DKSrst0BLWVlIEP9GTc0RAQfJQAlOBAxLZczFEKeASWlFqY1OMAgZDMsPV4TDbHqJIEnJMPyIJWoMFZa JBTawu1KTHEuGIJ9ZQU2LDXaSCJfOKWmQHw0eeNamT CrFLk8VG2TR4SgfuDrCPPWFf2Ft215QPAyGXOiXn4NL0bxZc6fWDWjUFXRHj8TTZz8VYRnAtHnAJM1Ln YvRoGyXfGeLdO7EgOdBEelZkRaAHM+JJg3LGDsPEZtWvM5KoJxPfD3EGFyOKmgUWHhNuUcHiZbWq9uWM ANCj4+WTzznDDgjNinSLRTMxCaBvm2AXuxGCCJNo9X ID Date Data Source [id number] 01/31/2020 08:52:00 AM EDT [facility] ([facility] Name Value Range Interpretation Code Description Data Sherron rce(s) Supporting Document(s) Thyroid Stimulating Hormone 0.573 uIU/ML 0.358-3.740 Norm al (applies to non- numeric results) [facility] Free T4 1.20 ng/dL 0.76-1.46 Normal (applies to non-numeric resul ts) [facility]) ID Date Data Source [id number] 01/31/2020 08:52:00 AM EDT [facility] ([facility]) Name Value Range Interpretation Code Description Data Sherron rce(s) Supporting Document(s) Calcidiol [Mass/volume] in Serum or Plasma 46.8 ng/mL 30.0- 100.0 Normal (applies to non-numeric results) [facility]) ID Date Data Source [id number] 01/31/2020 08:52:00 AM EDT [facility] ([facility]) Name Value Range Interpretation Code Description Data Sherron rce(s) Supporting Document(s) Hemoglobin A1c 6.7 % Normal (applies to non-numeric r esults) [facility] ([facility]) REFERENCE RANGES: 4.5-5.6% NORMAL 5.7-6.4% SUGGESTS IMPAIRED GLUCOSE META BOLISM >= 6.5% ABNORMAL Estimated Average Glucose 146 mg/dL 60-110 Above high normal [facility] ([facility]) ID Date Data Source [id number] 01/31/2020 08:52:00 AM EDT [facility] ([facility]) Name Value Range Interpretation Code Description Data Sherron rce(s) Supporting Document(s) Glucose, Fasting 104 mg/dL 70-100 Above high normal [facility] Blood Urea Nitrogen 16 mg/dL 7-18 Normal (applies to non-nume patricia results) [facility] ([facility]) Glomerular Filtration Rate Laboratory test result Normal (applies to non- numeric results) [facility] ([facility]) <content>Units are mL/min/1.73 m2</content>
<content></content>
<content>Chronic Kidney Disease Staging per NKF:</content>
<content></content>
<content>Stage I & II GFR >=60 Normal to Mildly Decreased</content>
<content>Stage III GFR 30- 59 Moderately Decreased</content>
<content>Stage IV GFR 15-29 Severely Decreased</content>
<content>Stage V GFR <15 Very Little GFR Left</content>
<content>ESRD GFR <15 on EMERGENCY PLANNER</content>
<content></content> Creatinine For GFR 0.63 mg/dL 0.55-1.30 Normal (applies to non -numeric results) [facility] ([facility]) Sodium Level 139 meq/L 136-145 Normal (applies to non-numeric res ults) [facility] ([facility]) Chloride Level 107 meq/L 98-107 Normal (applies to non-numeric r esults) [facility] ([facility]) Potassium Serum 5.0 meq/L 3.5-5.1 Normal (applies to non-numeric results) [facility] ([facility]) Carbon Dioxide Level 28 meq/L 21-32 Normal (applies to non-num davonte results) [facility] ([facility]) Calcium Level 9.1 mg/dL 8.8-10.2 Normal (applies to non-numeric re sults) [facility] ([facility]) Anion Gap 4 meq/L 8-16 Below low normal [facility] ( [facility]) Ast/Sgot 22 U/L 7-37 Normal (applies to non-numeric resul ts) [facility] ([facility]) Alt/SGPT 29 U/L 12-78 Normal (applies to non-numeric resul ts) [facility] ([facility]) Alkaline Phosphatase 44 U/L 45-117 Below low normal [facility] ([facility]) Bilirubin,Total 0.6 mg/dL 0.2-1.0 Normal (applies to non-numeric results) [facility] ([facility]) Total Protein 6.5 GM/DL 6.4-8.2 Normal (applies to non-numeric re sults) [facility] ([facility]) Albumin/Globulin Ratio 1.3 1.2-2.2 Normal (applies to non-n umeric results) [facility] ([facility]) Albumin 3.7 GM/DL 3.2-5.2 Normal (applies to non-numeric resul ts) [facility] ([facility]) ID Date Data Source [id number] 10/30/2019 10:46:42 PM EDT [facility] Name Value Range Interpretation Code Description Data Sherron rce(s) Supporting Document(s) Progress Note [facility] NBQVFh5uCaXEImTj61/WQFgbNBTmf4QsGYmdYSh5JWdvDLXmK2OeDAP0cY7nNKR3QBoNVtZgFyImDaO8 [facility] [file] AgICAgICAgICAgICAgICAgICAgICAgICAgICAgICAgICAgICAgICAgICAgICAgICAgICAgICAgICAgIC HjEEHtKPVbZNDiYHQuYCSvVNTzPKGuRKBbCL2BHHSyPLIuGEZwJPUpUBQgCMPrMMQnZNUbCCCrPHCbZV AgICAgICAgICAgICAgICAgICAgICAgICAgICAgICAg DEPtADFcSXEfFUTvLQPdRMDaKWFtWVLnYLQdUJOaXKHcNFJdWV5JYRPsITQoWHHeUDFiIZMnSWWlIDIe ICAgICAgICAgICAgICAgICAgICAgICAgICAgICAgICAgICAgICAgICAgICAgICAgICAgICAgICAgICAg GANmDEDkWTLyTHDsHIKsPCBbTW7XSLVbLGVfZEIbUF AgICAgICAgICAgICAgICAgICAgICAgICAgICAgICAgICAgICAgICAgICAgICAgICAgICAgICAgICAgIC JyKPNnGNEmSKXvMEWgWDEjACCsPNTwXZVsBHAmOM3LSXHjKXZfFDCqLTPrCBPsJSKnSOLdCHHeZAYaKQ AgICAgICAgICAgICAgICAgICAgICAgICAgICAgICAg IDHnALYlAPHpIKWcINPbLRZdEOUiXHSsMFLiBPSbXJKtXRRkIRDrEW3GWEVaRYUtDFOqAHIoGNNiHTXg ICAgICAgICAgICAgICAgICAgICAgICAgICAgICAgICAgICAgICAgICAgICAgICAgICAgICAgICAgICAg MRCqTLQqGQCqNSBvILJdCUQyBFAoFS7DAOIeHFDqSL AgICAgICAgICAgICAgICAgICAgICAgICAgICAgICAgICAgICAgICAgICAgICAgICAgICAgICAgICAgIC TvGZKbCDUlAGCiSNCoXPZjHVOzPRAyYSWeTQYhZWOdRJ7ZFXAzOHZjWWBkYCVfHJJxFBMzLMPbFPOrSE AgICAgICAgICAgICAgICAgICAgICAgICAgICAgICAg WXRfGMWsNCKsGDByZXErVQZiWXEmJXMjVZAuVDFnMVOqSMVtRJXrLMGtPJ6JTYQvYWVxXGAbRFScFMTp ICAgICAgICAgICAgICAgICAgICAgICAgICAgICAgICAgICAgICAgICAgICAgICAgICAgICAgICAgICAg BUCzRZAwUELaAFJeXPTsAHSlOOXqIFVxVC8JTAAcDR AgICAgICAgICAgICAgICAgICAgICAgICAgICAgICAgICAgICAgICAgICAgICAgICAgICAgICAgICAgIC ZdVDDfISEcBTRyLYOhBIYkFLUvXXZvXAQzDDRoAGIpBAEtGK2SFU99qSXus8D5HZVvZD8zmyg/Pg0KDQ tdwpMdbKWsRX7NVwJdDU1sxn6QRcHaOK3hxx7HDKsV XyCpW7A1gFNcADKxRSIFXuPxC92vXYlhGw13NAwiUJBjIeUmMBt9Qv5VTqMaI2jnHLSwPkA8GSQdPgHk CGchNN4Vs7VuyJVrEIg+Dg0FBN5ia6FbKOymYJHcCI9ukf3EIWxOSmHfA6KqkoH0HLZbXRUsTi3PJUKo YWNyzLWyBOWdNHYPDyQpG5JhdH71FQRYTw2+DQplbm AqPsiBRhFlVINnt1GaZDe7PO7WGQTeRGa5oGOgJVMuL8Tkz3ChOn14XGRyBmevJcXjtuGfoB8fUlJDbB AtGJ9XDSY5AMZhAd1uDAImOECoYwQ4CFNNBG8CTDQhFMVshHErVKGdGVOMWE4EBAfdDJJ9IWGxrlQmmT MoRFjsNN6FLDTxbtJqUUrvWHXMSGu+Xq3KFY9rh8Ed EDkdKEGmCT8lar1QXAtRJiAlV7Q0iCNpD1Z8DPhyTz6FMEPzAKLlFIssMGWZIRnlYV1PFH6ftnX0SQ5F kKXoZYTwFQNnrQQxUJy0T37xlKTgWAbqVD8UEWA+Marcia+Zf8AUYRgQEJdHURxKlXqDXIRLjLwF0OyU6TK m7LpI4XnXZ55rEbcveZeRJkdUE9ZYU6zQXMpOPQKTA 5KnRUwoA8aeiEvNBPgDQLJAyIeF15zlNXoJEObBFU4BSRbYi7IHNYzO9EohoBrqGboxlVfSOBhEQITQU 1AITbmbxOdnMOemTalFQ43kBerNV0MIg6PXzZuXJ4ncg4RmJRfIb8HKDYdQw3HBKKhQQIeBOIyBSB2NT HpNzVrSZmrWIKpVGVjORQ1GCSyEDQqHQ1UDuEhKOPx OSu5GtQlJEZjFRTail2DOBHjVDLfXPE6QzUpSOAyRCVfXGbpKJTlWDLbCME8GZRmUQNaTP6CEbEqSPBh XAU3WQBgQVJxVHLwcc3YARSsKLSgVdxuTHJmYUBoISDnRAvzYQObJXM5JOBgFFGsIIMqUM7CGiFtCIDb IQWfCTukEPCvLGMwcs5ILTVpIRQvHXLzWPRlJMNpLK YoBKseDXRyXPV4ADy9LDWqADSzIP0GUbDfUQVxLHYfSKwlGAFtXXHkbc6OYPBkNIBzNdI4SbEkVSIdAR UfQZnkSFOwJHJ5OXXxSLXrFGWbON6JVzRgQLLcKNlrGJbmHXRdKLYihd7UMTHiTGJaDAU2MrYyLMFfNG IcULhjVBHkHFN1FqX0VPYeSWLoQD7ZSgXiHHWpUNp6 JYGiMFMuXMFggm5OVFAfMBEtIXT7UzSfVCYvZQXmECcwEHQfDCLbNewyYOPeQRCyAU4SCbNbHXQgTzN2 IyEfXBPqRITjbs5ICPSgIRZcJInuCCLjCVAcOOXlQUk6mfXgkUCdNAb8HI0TY7ZeimTcCuFZOc6Zh415 ZLLtDGUiXs7XJ1ltQr0eHVWePSUQSg5RPOj3GcTnHU XfVOPtDUEoCERmWXLaA4KaJLRoQJZqLqc5KiZ+JXkkPNFtBcB5RNToVuZrOXFtHUYhINMyHjV0SQSpHg VoIG3zRVQSKi5+OWvszPDgiFweTSTLMkYzGVPcWAqtYPSVAi8O ID Date Data Source [id number] 10/19/2019 07:49:27 AM EST [facility] XR HIP- UNILAT, 2-3 VIEWS [id number] RE SULTInterpreted by:Jw Rodríguezvis and right hip:INDICATION: Right hip replacementFindings: Frontal [...] rce(s) Supporting Document(s) ID Date Data Source [id number] 10/09/2019 09:51:14 PM EST [facility] Name Value Range Interpretation Code Description Data Sherron rce(s) Supporting Document(s) Progress Note [facility] HPMERk5zLlYWAyPb96/SXKwyBUCch5JnYXxrJNj0CDrpJGLjS6OmMKG6tP5pEYL6YMrABjQzKvEpNrG2 lbm [file] ICAgICAgICAgICAgICAgICAgICAgICAgICAgICAgICAgICAgICAgICAgICAgICAgICAgICAgICAgICAg ICAgICAgICAgICAgICAgDQogICAgICAgICAgICAgICAgICAgICAgICAgICAgICAgICAgICAgICAgICAg ICAgICAgICAgICAgICAgICAgICAgICAgICAgICAgIC AgICAgICAgICAgICAgICAgICAgICAgICAgDQogICAgICAgICAgICAgICAgICAgICAgICAgICAgICAgIC AgICAgICAgICAgICAgICAgICAgICAgICAgICAgICAgICAgICAgICAgICAgICAgICAgICAgICAgICAgIC AgICAgICAgDQogICAgICAgICAgICAgICAgICAgICAg ICAgICAgICAgICAgICAgICAgICAgICAgICAgICAgICAgICAgICAgICAgICAgICAgICAgICAgICAgICAg ICAgICAgICAgICAgICAgICAgDQogICAgICAgICAgICAgICAgICAgICAgICAgICAgICAgICAgICAgICAg ICAgICAgICAgICAgICAgICAgICAgICAgICAgICAgIC AgICAgICAgICAgICAgICAgICAgICAgICAgICAgDQogICAgICAgICAgICAgICAgICAgICAgICAgICAgIC AgICAgICAgICAgICAgICAgICAgICAgICAgICAgICAgICAgICAgICAgICAgICAgICAgICAgICAgICAgIC AgICAgICAgICAgDQogICAgICAgICAgICAgICAgICAg ICAgICAgICAgICAgICAgICAgICAgICAgICAgICAgICAgICAgICAgICAgICAgICAgICAgICAgICAgICAg ICAgICAgICAgICAgICAgICAgICAgDQogICAgICAgICAgICAgICAgICAgICAgICAgICAgICAgICAgICAg ICAgICAgICAgICAgICAgICAgICAgICAgICAgICAgIC AgICAgICAgICAgICAgICAgICAgICAgICAgICAgICAgDQogICAgICAgICAgICAgICAgICAgICAgICAgIC AgICAgICAgICAgICAgICAgICAgICAgICAgICAgICAgICAgICAgICAgICAgICAgICAgICAgICAgICAgIC AgICAgICAgICAgICAgDQogICAgICAgICAgICAgICAg ICAgICAgICAgICAgICAgICAgICAgICAgICAgICAgICAgICAgICAgICAgICAgICAgICAgICAgICAgICAg XNPeVRMoVRAtOLZsXHGvDOZcAETbHOLaFEu7F6nxABUfTVWgUP8uAVw4Iz1+JQuYFoJfYRG3clFgwI6L OO0jf0AlYHmaRJEoc7KbTDl2JS1FVSOhMXiyWD7UKH hrkx3OCNCaTIBygVTOp7odZkOyXIS3ZAAxSnkwZQ3ZBGAuL7cqwoQxHQZvNCAVBX0RJlZaU1YxuQ20ZA ENCj4+OHivdjTdVwqVUaC6FOWcn7HgAPy6WC5TYQQyBugtr0GeZaMkSMBXWPtkQV6LOIN6JVKvEEXbAy 7HVWKiY456qxNiJW2XZk3WEnNmJD9lql6KUrQbGFYr GdvKGfd3RBhnPQ0CiZSnBYcGpk5hneEqblWQk2TczpMdzSAIWJD7aXC8VSHpWmK1OKXlUP0DJEY4TSHr GI4pQESaLEYoZbX2KKTLWP8KQMFhDAEqrYCbGPKgQYYMLZ0YQSetOWT3PYQoiyUvnOZwEJigTF2NNVWe bnQgMTkgMCBSDQo+Hj3KGE0wt4FjPLtuQAPrAM7ewo 5ZCYwUXtGrL0T5iIEkU1S3EGzdWb0VQPTgFGUzZTsrPVFHLVlfFI2MFA6tqvI1UW0IbSUdLMKeWXGthB NfVSh5W78mjFXkPHafLF2ZSXH+Marcia+Zo8UUEDhTRUgWOIwPxPfAGHITjGwY1MaB5VJy6RkT2XpTY97cY egmyUvMHddHO5TRC8mOWNyBVYXWD9XgEHepY8wwlJn HKTwWSCKNbEjD88wuUJbQMMtJZS6VWQuWo6LZKZaR3TyxuHmcKdzluByCVZaGRVTLK5ANYtyvuLmySMd uMljNQ03vUyqEH7FFf5LHmDiEC7fnk2WrKFmVl8NNWPpYj7JXEImDLQsXQNcFTC6WWSrDkQfYJxdUWLj ETFbMQA9ZNVtPSVtEQ5KTvJsYZWoUdN5SvUmSJQnKS Kmef3AEKRfEVJyRcR9EUEwGREgLNVjHFmhPLNbXPJhMZO6WRVvYKAjFA1FYhKzRMVeHOIeRbPrIPKnZF Hitd8QKGSoAAOiPmJ8UNNyNYViROGuXGlxZPNeLHX4WRD5TJNmNMGnSI0HFkIuLZXwBBI8QxNeOLLaQC Feav4GHJFdKEMwDJebVjTcHHKvEWHuRWclSVCeXLW7 NFlgVUCiMORdZR6IPnRhGMGiLTCgGtKgAZMoZMEuoj8WTFAzWRSwAnK6VCMzMBOnCGYkMSptVRGvXQN6 TJA7ZPZkPTSpHY3UNpMzOHBqVuZqHzCoZAEfKWNznu2GEKPfKOKjAAB9WKDuPYLgRRFxXMzjRIFeGYDp DrF4STNuEAAqJB8MAjPgAFQaYmX0OUKsHQCyWUQurz 3NQHIzHNZnKPPzIWBcNTLfAFDyYXqaQTWbHXYpFmC9HNCwHXOcER0UAcDlYKDzZcL0LZlpYBBxPSTuao 0VQLVxVRRsDpt3KYImXIQtRWShEUv9vfKakUAnJAm9RP6LA3RyorSxWmYVNu1Is634JCAwEMSxWx6IK8 jgNl1uETRpAULLKq1YFIv8IvbbDknyHbUuFjj9LPNo Eby4CPUtWdS2SzF5TIRaOFT+NPgyCFXxJ7GzFPJkNKwyX4BwNExcFXIkSzpvMfsmVlZhPW3hABDTSz9+ WIuqhIOpeMmtNQXHAgSvQEClFRwcBVBHEk2G ID Date Data Source [id number] 09/20/2019 05:18:19 PM [facility] XR HIP- UNILAT, 2-3 VIEWS [id number] RE SULTInterpreted by:Tyshawn Graham MDHip unilateral, 2-3 [...] rce(s) Supporting Document(s) ID Date Data Source [id number] 09/07/2019 10:45:25 AM EST [facility] Name Value Range Interpretation Code Description Data Sherron rce(s) Supporting Document(s) Discharge Summary [facility] ZXDPIe6pJnPGJpKv98/OGXpbKVMyy7MyOVnaSAq9FKfgTHZlK2PlFZR4vC5kNXD2IVnEVjYrEfIoUQCo m VpXuhHZrFrBFIhOhcFSfFkBSjmTgdecDXiXZ5TyBW0KHBgS02jNNPdCXPhU3YaWDH0MgG+Et2UWJZriV ZvFG8NHoxX8Ddxf+V3MV7d3V2QiAYMMJgnUFa60I9fhkGp5UWcd+9UvEEwOEONn74vE4wgu71yqL9kNc /JKS6Ytdd6oY7Fmd/xiPePy4zn27/sxFWWZbHs3/qn 5do0wbP//8rccxmyure8sIkBL9JcFM5jBKeW0nqJdI8R26ecGCv2qC3G45br4KdHzbd8eMc91p/myePT T2mKx5MuKcGte55AYsJLtuT264+x7TIaRMloc6maziyd+Wz1H8pZgOOivWnfrBtiCQrjuwZM/Oxh3Fjf pAXzMVvoK8cg6YjCpas5Cll6GrlaXc0HoW2f1R/yFi IU8Pi2OhAp9eHeGtOiewx7s1SsxCvgJ6gSl5bxqsY25OG6pR+OV+M9H9lTbpQTcjsiH1sUe3XTVMqQ0n bwNVdArxGSmAGGtiopf6U+mQhEQ2Mgjp5n/tk4dCHhfpX0ZRm7TPFzLrZxy/Q8jyH3O+xZ8fe1PzIaRw j/2kKakb8o7WeqRf8spFuM2RKmQtUoa/uo2RpGeaTU u19aKVBjdKy2GL8ciqZD/xuAK3f1fkb5jS4RU/ib6rqMxei1p2HmySxy+0nLPnYc/9jzHZWu/5fzWWxy 8jhiYcNFtN52HkqrP1dgtc6v9DWzdi7sGO3cu4pwHgydkJubVoxYlbVcntn3sWsYzdWrdPNxVSTiisag iIWSv67MTGDidEJQKO7oJTIMhC60kQticrA+77IcSs 7tPOdGScz+jkNP47ocpRAGmQhyAbOqXCoIzler3XdJ5BBmXSxKXWBFniKlIqUW/PeDQFqRpNW11veAy0 gyfbgyHhwiy02yloMyZ8UjgpMfZD0jDGCQtGapA+lCyK6I4BVwVY/dvuuE4ZuWMfvIp3Wnl1iNIsw4OB JT1Im8CaRORe0GNohI3rul6Qd2+Jj+wOyjSkLImuT [file] CAllaPAHAIAPH6KY3vYKWn7SkCi/W/Krpp1axezmDUvTx6AK/dLNv+7z/MtNtM66t73y+4c2krWnl/TUBE TRAILER FILLER rxL6V2r4Hiy2+9+7K30T1opNdEM74q3p7pNt02cjBd1POh/8fDg+ijR9xIZ//c0D38evrh6s7gd2g9b4 eNn8vdc2d5+uY/cF44i7S9/PPPsy+++tJOPsvrvNpO oa9nQI5E/aLducJfLAzgIWx3gA7maPYy48dgx9lR2V30cRf50mNvy5r2iw7ZBz2ei+6ePo68q+9uVtaz nFJsB2e6xoc7P9Q9T/u+86xFvpwXb+ddb/RcRse7EYdy37ABtXKm7BrgYyuKUkd8MKoc9OTFuGF9bZmM fFXn7l/Qnu47MFgjQ5P7nSfkrO/TZ64mmypLj+X26Z dxu8Neebw0yq0cC9an1uXs/pA20pBka6+F1hbW9k8OsNb/+3CIgg0k5I+fbh/OX4eDhPzN2d/zVdOsD+ 00+L6f1bvjsMb71j2RhjjXu3P/vchTORjmj9X++Qse9zUr0lJn9DA4oDk183eVrtdQ8jt+s/H5JTkhYX Ykq38T9pGd+fUS579va4h01C2f2Xn47uMkh7cT8iFo [file] DQogICAgICAgICAgICAgICAgICAgICAgICAgICAgICAgICAgICAgICAgICAgICAgICAgICAgICAgICAg ICAgICAgICAgICAgICAgICAgICAgICAgICAgICAgIC AgICAgICAgICAgDQogICAgICAgICAgICAgICAgICAgICAgICAgICAgICAgICAgICAgICAgICAgICAgIC AgICAgICAgICAgICAgICAgICAgICAgICAgICAgICAgICAgICAgICAgICAgICAgICAgICAgDQogICAgIC AgICAgICAgICAgICAgICAgICAgICAgICAgICAgICAg ICAgICAgICAgICAgICAgICAgICAgICAgICAgICAgICAgICAgICAgICAgICAgICAgICAgICAgICAgICAg ICAgDQogICAgICAgICAgICAgICAgICAgICAgICAgICAgICAgICAgICAgICAgICAgICAgICAgICAgICAg ICAgICAgICAgICAgICAgICAgICAgICAgICAgICAgIC AgICAgICAgICAgICAgDQogICAgICAgICAgICAgICAgICAgICAgICAgICAgICAgICAgICAgICAgICAgIC AgICAgICAgICAgICAgICAgICAgICAgICAgICAgICAgICAgICAgICAgICAgICAgICAgICAgICAgDQogIC AgICAgICAgICAgICAgICAgICAgICAgICAgICAgICAg ICAgICAgICAgICAgICAgICAgICAgICAgICAgICAgICAgICAgICAgICAgICAgICAgICAgICAgICAgICAg ICAgICAgDQogICAgICAgICAgICAgICAgICAgICAgICAgICAgICAgICAgICAgICAgICAgICAgICAgICAg ICAgICAgICAgICAgICAgICAgICAgICAgICAgICAgIC AgICAgICAgICAgICAgICAgDQogICAgICAgICAgICAgICAgICAgICAgICAgICAgICAgICAgICAgICAgIC AgICAgICAgICAgICAgICAgICAgICAgICAgICAgICAgICAgICAgICAgICAgICAgICAgICAgICAgICAgDQ ogICAgICAgICAgICAgICAgICAgICAgICAgICAgICAg ICAgICAgICAgICAgICAgICAgICAgICAgICAgICAgICAgICAgICAgICAgICAgICAgICAgICAgICAgICAg ICAgICAgICAgDQogICAgICAgICAgICAgICAgICAgICAgICAgICAgICAgICAgICAgICAgICAgICAgICAg ICAgICAgICAgICAgICAgICAgICAgICAgICAgICAgIC HkAAApIXSoHGCsHWXlHTTrTZErRXt3B1cnMEUuFLVmEX4oRQi0Oo2+NUvYQaLiWDD2biBvcQ4DEF3ui5 ZfOTqmLTRmm2ZaVBu5OL8VUWKhVNddXC9AWQmnbm6YJIYjGDGelRKNc4tjLcWhJFG2XOChGosoTI4PUA HeP5meekRyRMIeIEXWCDfoJZKXJOpgVPVTFDWgWCFg LlNrBrMyQVRrNW0VFNCiE133wiNwWR2UQq8TYvPiAC6hhy8JTrHqOUDmUojXGpz2UKpnOR8RlWVghRJx BDRuYVPOJlWsG6ilq2YoUgNeABUMLRnrGR9Dc6QmnHPpBUm+Px0SOQ6xu2ShCWwnBIBpKO8vrr4BYFwH BrRrT1AccYloKGEth1QuDYQlNQNDaQ6fAOI4IEA5MO Y6EZQcBN7sNATFLLhscfYdnH6pOAksXHCdZKZfUU1rVT4wFCAhYNGbMmMoTHKKIL6FZPUfNRReiSCgJI CtALHPKI4UYIrmQFW8DVJbawEkmPPsPFbxSG2NJEEjznLsEjPqZZEHUPn+Gh9IXR0eg6CtDGowQoWgXB 5pou4PYEcKHzGvP2F2jXBiE9G2PGygFl9VMCWpHSGs TctqFNRPJRbcWK5EEN2jxeD0ZH3YdCMnICAdKUJbwRYiLBl5L36psTXhOTncQA7VOGO+Marcia+Tl9GCSNb ORPbZYNaYzKuKPHXLdOwM1LjN7XHm8AvI4GpHF07vWmjhsEoOTklVV3SAH3jKIQcRUDROT6ZfVIxwV9y cpXuZIZzZWJEUnLrB35xsYPwQCJqDMH2ZYHuRd0SNR SeH3JupbLieWldrkQiATYaAEAYWO6AVIjqjqYjrGWimCxpHM11aPurJR7AHu6HMcIdJI9ave3BpFGzUx 5SIABoNv2TKYBgJQRnYVRbCTK0TBCqRpTaZKstOOCjDUQdXOE6UWJeEJCeZP4DJgQtTDNkCrDwGJGdJK JqQEWpaa5JFNBqKQXoZfo5QFEdGFEoFJNyRUeuDXGv EYLqFDT1UMAqEECzYH6ZGfGhZNReNEH3RTXjFIIeZEUgbc2ADXWrTWAoVggmJDUsBAMyEKEeLMhdPBPo APF3QmR2FUQlVHHpDC7QGmCsEISlJTP5UJmpIVAoEHJfhy6ZTOTkOFXrOWOrUJNzMSSnDMQrDKoeHBLk FIBuOdE3TVToTGElYN3VIsDoPHUgLKW3LzSmUZEaNV Kdfe2CUBTbRRRgMCJyDqYqOHMoWIFnKIuuICLnPED6NWF8MUNdSCZmXW9JUsSjAVGpYZNuHvXiMJVzVS Wlcy6GJWFjFMVoDqP9UKJaJTWnWNOyWFhmQIBnDTH2Xoj8OBTuHHGzKX7RRoIvLRRrCKu3QjWuCQMpGJ Dxyk7NKOGoXQBiSNAqMPNfMKAeMPNiNQooBJWuBYI6 PfQyXUVjMRCpBL1PZgWbBCPbRGu0UOtjNIDsZXXlnn2NDKSsYPFyBNd9MHEhRQMuCBVrVUjtCWBrPIDx WQg5FHWeYYNoMZ8IPbAuDTNiSdDoKFldZOMeGFIsop5ZHMOvFTSqVRYtPHNcAUBbDSIaMMalZVYrYKB4 EXXdQVVwZXGmMG3FUeCsUZMrClA3ZSOcQQDeSSHhsh 6GWFBlZZXjAIc6IEUdDUVoBRVeAYzdVDGiBZW5EOGbYZDdRSGmRX9KExYlGQEjQcS7GYcpVCYzOKObym 4MIBQhRENeIvhqZcChGOPlWRCtGIycOTLmZNF3IXdmBXNaTQDiCL2TYsGaGPBzTqawVAUlMBBfIFMouq 9JcWQgvLrngo9JLBlJLq1FmTlvMGCcBXhmKc3jnMKu TjXqXALZDu2OtaNnQSJgZCDZMFeiSIMxDTG2K6EgKnWfCoRsA4AiLFQyL9OtQBJtHUDlKRsoErY8CoA5 XqT8ZhFpBNF8JeErCtEeFxS6ExWgNMQvXiB8GYIdBIR+TQ0nPYd+Ox5Yu1ZgveK6jaQaBSwzDKJ1Bl3N QRVRD5ADKl== ID Date Data Source [id number] 09/04/2019 03:29:00 PM EST [facility] ([facility]) Name Value Range Interpretation Code Description Data Sherron rce(s) Supporting Document(s) EKG Laboratory test result [facility] ([facility]) ID Date Data Source [id number] 08/30/2019 11:52:47 AM [facility] Name Value Range Interpretation Code Description Data Sherron rce(s) Supporting Document(s) Glucose [Mass/volume] in Capillary blood by Glucometer 128 mg/dL 70- 140 [facility] ID Date Data Source [id number] 08/30/2019 08:09:23 AM [facility] Name Value Range Interpretation Code Description Data Sherron rce(s) Supporting Document(s) Glucose [Mass/volume] in Capillary blood by Glucometer 130 mg/dL 70- 140 [facility] ID Date Data Source [id number] 08/30/2019 05:36:13 AM [facility] Name Value Range Interpretation Code Description Data Sherron rce(s) Supporting Document(s) Leukocytes [#/volume] in Blood by Automated count 7.1 10*3/uL 4-10 [facility] Erythrocytes [#/volume] in Blood by Automated count 2.77 10*6/uL 4.1- 5.3 L [facility] Hemoglobin [Mass/volume] in Blood 8.8 g/dL 11.5-15.5 [facility] Hematocrit [Volume Fraction] of Blood by Automated count 26.2 % 3 6-45 L [facility] Erythrocyte mean corpuscular volume [Entitic volume] by Auto mated count 94.8 fL 80-96 [facility] Erythrocyte mean corpuscular hemoglobin [Entitic mass] by Automated count 31.9 pg 27-33 [facility] Erythrocyte mean corpuscular hemoglobin concentration [Mass/volume] by Automated count 33.6 g/dL 32.0-36.0 [facility] width [Ratio] by Automated count 14.3 % 11.5-14.5 [facility] Platelets [#/volume] in Blood by Automated count 188 10*3/uL 150-400 [facility] ID Date Data Source [id number] 08/29/2019 09:44:35 PM [facility] Value Range Interpretation Code Description Data Sherron rce(s) Supporting Document(s) Glucose [Mass/volume] in Capillary blood by Glucometer 139 mg/dL 70- 140 [facility] ID Date Data Source [id number] 08/29/2019 04:49:00 PM [facility] Value Range Interpretation Code Description Data Sherron rce(s) Supporting Document(s) Glucose [Mass/volume] in Capillary blood by Glucometer 149 mg/dL 70- 140 H [facility] ID Date Data Source [id number] 08/29/2019 12:46:45 PM [facility] Value Range Interpretation Code Description Data Sherron rce(s) Supporting Document(s) Glucose [Mass/volume] in Capillary blood by Glucometer 128 mg/dL 70- 140 [facility] ID Date Data Source [id number] 08/29/2019 08:47:46 AM [facility] Value Range Interpretation Code Description Data Sherron rce(s) Supporting Document(s) Glucose [Mass/volume] in Capillary blood by Glucometer 110 mg/dL 70- 140 [facility] ID Date Data Source [id number] 08/29/2019 09:21:05 AM [facility] Name Value Range Interpretation Code Description Data Sherron rce(s) Supporting Document(s) Hepatitis C virus Ab [Presence] in Serum or Plasma by Immuno assay Non Reactive [facility] No serological evidence of active infect ion. If recent exposure is suspected, test for HCV RNA. ID Date Data Source [id number] 08/29/2019 05:54:02 AM [facility] Value Range Interpretation Code Description Data Sherron rce(s) Supporting Document(s) Leukocytes [#/volume] in Blood by Automated count 7.2 10*3/uL 4-10 [facility] Erythrocytes [#/volume] in Blood by Automated count 3.01 10*6/uL 4.1- 5.3 L [facility] Hemoglobin [Mass/volume] in Blood 9.8 g/dL 11.5-15.5 L [facility] Hematocrit [Volume Fraction] of Blood by Automated count 28.2 % 3 6-45 L [facility] Erythrocyte mean corpuscular volume [Entitic volume] by Auto mated count 93.6 fL 80-96 [facility] Erythrocyte mean corpuscular hemoglobin [Entitic mass] by Automated count 32.6 pg 27-33 [facility] Erythrocyte mean corpuscular hemoglobin concentration [Mass/volume] by Automated count 34.8 g/dL 32.0-36.0 [facility] distribution width [Ratio] by Automated count 14.6 % 11.5-14.5 H [facility] Platelets [#/volume] in Blood by Automated count 210 10*3/uL 150-400 [facility] ID Date Data Source [id number] 08/29/2019 06:09:35 AM [facility] Name Value Range Interpretation Code Description Data Sherron rce(s) Supporting Document(s) Bicarbonate [Moles/volume] in Serum 23 mmol/L 22-29 [facility] Chloride [Moles/volume] in Serum or Plasma 108 mmol/L 98-107 H [facility] Creatinine [Mass/volume] in Serum or Plasma 0.45 mg/dL 0.50-0.90 L [facility] Glucose [Mass/volume] in Serum or Plasma 137 mg/dL 70-140 [facility] Potassium [Moles/volume] in Serum or Plasma 3.9 mmol/L 3.4-5.1 [facility] Sodium [Moles/volume] in Serum or Plasma 138 mmol/L 136-145 [facility] Urea nitrogen [Mass/volume] in Serum or Plasma 9 mg/dL 8-23 [facility] Anion gap 3 in Serum or Plasma 7 mmol/L 8-15 L [facility] Osmolality of Serum or Plasma by calculation 287 mosm/kg 275-300 [facility] Creatinine/Urea nitrogen [Mass Ratio] in Serum or Plasma 20 [facility] Calcium [Mass/volume] in Serum or Plasma 8.4 mg/dL 8.8-10.2 L [facility] Glomerular filtration rate/1.73 sq M pre dicted among non-blacks [Volume Rate/Area] in Serum or Plasma by Creatinine-based formula (MDRD) >6 0 [facility] Glomerular filtration rate/1.73 sq M pre dicted among blacks [Volume Rate/Area] in Serum or Plasma by Creatinine-based formula (MDRD) >60 [facility] ID Date Data Source [id number] 08/28/2019 09:12:12 PM [facility] Name Value Range Interpretation Code Description Data Sherron rce(s) Supporting Document(s) Glucose [Mass/volume] in Capillary blood by Glucometer 192 mg/dL 70- 140 H [facility] ID Date Data Source [id number] 08/28/2019 05:02:11 PM [facility] Name Value Range Interpretation Code Description Data Sherron rce(s) Supporting Document(s) Glucose [Mass/volume] in Capillary blood by Glucometer 163 mg/dL 70- 140 H [facility] ID Date Data Source [id number] 08/28/2019 01:51:41 PM [facility] XR PELVIS 1-2 VIEWS [id number] RESULTInt erpreted by:Corby Peterson, MDPelvis, one to 2 views, portable dated 08/28/2019.REASON [...] Date Data Source [id number] 08/28/2019 12:23:58 PM [facility] Name Value Range Interpretation Code Description Data Sherron rce(s) Supporting Document(s) Glucose [Mass/volume] in Capillary blood by Glucometer 159 mg/dL 70- 140 H [facility] ID Date Data Source [id number] 08/28/2019 11:18:33 AM [facility] Name Value Range Interpretation Code Description Data Sherron rce(s) Supporting Document(s) Operative Note [facility] DZRFVd9sWmGPXlMy10/DWLnkTOOok4TgNPrtJVd3PYezOUNsS0HaQWO9dE9fUAG6UUjOReNdKpAaSDPs lbm [file] p9nOWDkjSncrsesLdPwUvOAtZllS/CtaK74G80xlgH7rR5tWiy/w2nnz7qyO2Lyr0wl/08o4ZSOgy+Mosquito Sprayer [file] j2KJv5TPUrTfYvYN5jLDVXLu5+OUcjdCTtzWqmKMIVOgR1ZdXdRVpmTWHPKf7H ID Date Data Source [id number] 08/29/2019 09:56:00 AM EST [facility] Surgical Pathology ReportName: KEY SANZ RMRN: [id number] Number: [id number] Date: 08/28/2019 11:10Received Date: 08/28/2019 13:29Physician(s): LORRAINE,BIANKA LORRAINE,EMILSpecimen(s) ReceivedA: Right femoral headClinical HistoryPrimary osteoarthritis of the left hip. DiagnosisBONE, RIGHT HIP, ARTHROPLASTY: DEGENERATIVE JOINT DISEASE. (GROSS ONLY)./pws Jennifer Gleason MD;Resident PathologistElectronically Signed By Matty Sun MD, Attending Pathologist 08/29/201909:56:10Processed at [facility] Pathology Laboratory at [facility], [address] [place] [address]. [facility], [address] [place] [address]. The attending pathologist named above attests that he/she haspersonally reviewed the relevant preparation(s) for the specimen,performed microscopic examination when indicated, and rendered the finaldiagnosis. Unless 'gross-only' is specified, the final diagnosis is basedon a microscopic examination of wholesale representative sections of tissue.Gross DescriptionThe specimen is [...] rce(s) Supporting Document(s) ID Date Data Source [id number] 08/28/2019 07:37:40 AM [facility] Name Value Range Interpretation Code Description Data Sherron rce(s) Supporting Document(s) History and Physical [facility] JZAFFs6xLmBCLqDs60/DYClyWHVfi3EiVMgqAIg0IBfmZOBxT6KuYVX0mL9vJHM6BQlGTtYoXsCfCAPy [facility] [file] ICAgICAgICAgICAgICAgICAgICAgICAgICAgICAgIC AgICAgICAgICAgICAgICAgICANCiAgICAgICAgICAgICAgICAgICAgICAgICAgICAgICAgICAgICAgIC AgICAgICAgICAgICAgICAgICAgICAgICAgICAgICAgICAgICAgICAgICAgICAgICAgICAgICAgICAgIC ANCiAgICAgICAgICAgICAgICAgICAgICAgICAgICAg ICAgICAgICAgICAgICAgICAgICAgICAgICAgICAgICAgICAgICAgICAgICAgICAgICAgICAgICAgICAg ICAgICAgICAgICANCiAgICAgICAgICAgICAgICAgICAgICAgICAgICAgICAgICAgICAgICAgICAgICAg ICAgICAgICAgICAgICAgICAgICAgICAgICAgICAgIC AgICAgICAgICAgICAgICAgICAgICANCiAgICAgICAgICAgICAgICAgICAgICAgICAgICAgICAgICAgIC AgICAgICAgICAgICAgICAgICAgICAgICAgICAgICAgICAgICAgICAgICAgICAgICAgICAgICAgICAgIC AgICANCiAgICAgICAgICAgICAgICAgICAgICAgICAg ICAgICAgICAgICAgICAgICAgICAgICAgICAgICAgICAgICAgICAgICAgICAgICAgICAgICAgICAgICAg ICAgICAgICAgICAgICANCiAgICAgICAgICAgICAgICAgICAgICAgICAgICAgICAgICAgICAgICAgICAg ICAgICAgICAgICAgICAgICAgICAgICAgICAgICAgIC AgICAgICAgICAgICAgICAgICAgICAgICANCiAgICAgICAgICAgICAgICAgICAgICAgICAgICAgICAgIC AgICAgICAgICAgICAgICAgICAgICAgICAgICAgICAgICAgICAgICAgICAgICAgICAgICAgICAgICAgIC AgICAgICANCiAgICAgICAgICAgICAgICAgICAgICAg ICAgICAgICAgICAgICAgICAgICAgICAgICAgICAgICAgICAgICAgICAgICAgICAgICAgICAgICAgICAg ICAgICAgICAgICAgICAgICANCiAgICAgICAgICAgICAgICAgICAgICAgICAgICAgICAgICAgICAgICAg ICAgICAgICAgICAgICAgICAgICAgICAgICAgICAgIC AgICAgICAgICAgICAgICAgICAgICAgICAgICANCjw/nUKkX2blaJCphoH3S6geIc4TXe4FSZ6qq8JtJE ByGGiqaxHtEmaOUzCaYLTkIuxSQfr6JNahIE2JuGJwE9VpW8NhJQgqJY0VQBRjAMVklFPvOABeUODwZw D3PIXrOYvmPW2CrBKrFGtzELVsULQnGjDvDFQcPDXx XQGrAZKiEVYVBL5NVkTlC9MvcJ50RRCPYp6+FMcvsuWgNqhRSgI0THMys5QkTDo0PN7HEZBiTjuse6Ma GmreBWPVUBgqUO4GKBA2XGE6HRTqMs4ZIKMjR933juQbSM9WQh3GDcEtVI7iyt9YEimsVCTyYgxVRze6 DIygFT4HjZTvBQyNEoMyGztoCI6yjYALmsBrVMBADC SigDXoIbNyOfHrIyRjAKw7QzwvVZ8jTMttOM9LIIY2ARisXZVaFHVxZ5mSEsWqXHOaMzPqsDpmBR1APg BmC1OfmiChrNHaYSYoCUAXYk0+LRvvkeAlFoyMGtPhKYCne0QzRWq2IJ3JBDVgVPpoJL7DSHAxcI0eRD fhGA3IHfBsJaEnYQJGTaEwB08zoEUcUJp2V0OgPwVb ZGVkRmlsZXMgPDwvTmFtZXMgWyBdDQogID4+ID4+THxpBV5XKIuuekAiHNDbRv3SMRRzPJWsCB2oXQLq YOVkW8T0uBucNFVNHxWlK0tqwuxnGV2vLEBoO545tSeiabDaDFF0TYBaKz2ZKYXfCOQ0QPIdaOAkBzro GZFZNXlmZU0LjIYgVTS7wL5hRLamBCMbZQOzH9sKCa XtyWsaWP01zSfbmwShcNXfSNg+Sg2DYS4gy2KpRRg2fnBvIVhlFRUjPPnyREFiRPHbLSSbGVH8QJE8QM OQRkVhBECeXGCpRZaySUGlQIQthm6BSKHjWTGjZLe0XjJuDPJwYLAvOPepACMkRBI4SPovHBVgOURvQH 8VGqLgCSAjJAGiRLavEYRlOHYeez8ZNSDmLCWdJcNh ZWEfBEQcULHhWRtnAYHgLJTrUKLpHNUjJQIkHF9QRiMjZGTzEFKuMvUsRYJpUZYgfl0JOZKeTUOsRlHj RyHbSBPgVORiKKmoZIOkXZT0RVUpTLZwRQAdAM9WDpLpPAIwQXkiJlkwGCAdBQXdna0RIXNvEUTaCQy2 ZMGcLWTdJKHtLAfrAPZlMZLtTJV8FAViIPFtEO9FHi OqBBGaOZC3BIecWAWhRJWtjm9YFRRxFVXsAiMvPRSlSOZdISHmFFoiMOVyKEQqSkl9UNWoOFBxAC2GNh ZjNYWqKKDxYFZhOETsKSIpbz7GDZYyXACrCJZ3GJYgPDEqCDOyIYbwQVIvOBI0OyR9AFDqTGLfCA9EBh QmIINxNiOoKlNnASZiJTWeua1ODMLbAUPnFvE1LrRf LUVaEMEuFQkzIZPwMGRbBDPbZVOaUNYoTJ8AQlTsPMYxAgDtRtgnMGXfWVVols8KGTSzFKPbNGDsKUDy CGGpFBMhWJxhTBHzOEK6XkW8IYBgLMCmMN6OBmObJLFaFpW4LJmmWOIwNODzfq7IMRQgXGGrUHyuNSSi TANeCFLkFQimDJMtRKP5LPAyQMVmMESbXK6CJsTmCE ZvFsh4DWmwBGUbRGRbqi9NVNZrTZUmAfD3YBOgPHQxSRXfDMypDFJcLQW9JNAmUSDxNLFgTZ0BGkYzOW xwPIYDAcw5LErfI8z1YOLlTN1RK5Zya7HdUrVjDDTVMFwnSY4dmtGpOUEkBe5VS2pOEbm0SZnwBEMoFY GiPJEhGzjqPnZzX3XdSVc5JLZsE9W9VL3lXWchTWZ8 FaUuL1JsDXNlUVOnIdV2FHXcGGU9EjOtQcdfUwPnIU4KBe4IXrG4TSX2cRCcCz2MQdmiURoCWvRuJY2B DQo= ID Date Data Source [id number] 08/28/2019 06:59:52 AM EST [facility] Name Value Range Interpretation Code Description Data Sherron rce(s) Supporting Document(s) Glucose [Mass/volume] in Capillary blood by Glucometer 114 mg/dL 70- 140 [facility] Procedure Social History Code Duration Value Status Description Data Source(s ) Smoking 09/10/2020 12:00:00 AM EST Patient has never smoked co mpleted Patient has never smoked [facility] ([facility]) Alcohol intake 04/03/2020 12:00:00 AM EDT Current drinker of al cohol (finding) completed Current drinker of alcohol (finding) [facility] Tobacco use and exposure 04/03/2020 12:00:00 AM EDT Never used co mpleted Never used [facility] Smoking 04/03/2020 12:00:00 AM EDT Never smoker completed Never s [facility] Alcohol intake 10/17/2019 12:00:00 AM EST Current drinker of al cohol (finding) completed Current drinker of alcohol (finding) [facility] Smoking 10/17/2019 12:00:00 AM EST Never smoker completed Never s [facility] Alcohol intake 09/19/2019 12:00:00 AM EST Current drinker of al cohol (finding) completed Current drinker of alcohol (finding) [facility] Smoking 09/19/2019 12:00:00 AM EST Never smoker completed Never s [facility] Alcohol intake 08/29/2019 12:00:00 AM EST Current drinker of al cohol (finding) completed Current drinker of alcohol (finding) [facility] Smoking 08/29/2019 12:00:00 AM EST Never smoker completed Never s [facility] Vital Signs ID Date Data Source UNK Name Value Range Interpretation Code Description Data Source(s) [place] body weight 135 [lb_av] 135 [lb_av] MLAA [place] ([facility]) Oxygen saturation in Arterial blood by Pulse oximetry 97 % 97 % [facility] ([facility]) Body temperature 98.8 [degF] 98.8 [degF] [facility] ([facility]) Respiratory rate 18 /min 18 /min [facility] ( [facility]) Heart rate 78 /min 78 /min [facility] ([facility]) Body mass index (BMI) [Ratio] 29.6 kg/m2 29.6 k g/m2 [facility] ([facility]) Body weight 189.00 [lb_av] 189.00 [lb_av] MALA T ([facility]) Body height 67 [in_i] 67 [in_i] [facility] ([facility] 5'7" Diastolic blood pressure 90 mm[Hg] 90 mm[Hg] [facility] ([facility]) Systolic blood pressure 142 mm[Hg] 142 mm[Hg] M SAMANTHA ([facility]) [place] body weight 135 [lb_av] 135 [lb_av] MEDEN T ([facility]) Oxygen saturation in Arterial blood by Pulse oximetry 98 % 98 % [facility] ([facility]) Body temperature 98.0 [degF] 98.0 [degF] [facility] ([facility]) Respiratory rate 14 /min 14 /min [facility] ( [facility]) Heart rate 100 /min 100 /min [facility] ([facility]) Body mass index (BMI) [Ratio] 29.9 kg/m2 29.9 k g/m2 [facility] ([facility]) Body weight 191.00 [lb_av] 191.00 [lb_av] MEDEN T ([facility]) Body height 67 [in_i] 67 [in_i] [facility] ([facility] 5'7" Diastolic blood pressure 72 mm[Hg] 72 mm[Hg] [facility] ([facility]) Systolic blood pressure 160 mm[Hg] 160 mm[Hg] [facility] [place] body weight 135 [lb_av] 135 [lb_av] MEDEN T ([facility]) Oxygen saturation in Arterial blood by Pulse oximetry 98 % 98 % [facility] ([facility]) Body temperature 98.0 [degF] 98.0 [degF] [facility] Respiratory rate 18 /min 18 /min [facility] ( [facility]) Heart rate 97 /min 97 /min [facility] ([facility]) Body mass index (BMI) [Ratio] 31.2 kg/m2 31.2 k g/m2 [facility] ([facility]) Body weight 199.00 [lb_av] 199.00 [lb_av] MEDEN T ([facility]) Body height 67 [in_i] 67 [in_i] [facility] ([facility] 5'7" Diastolic blood pressure 84 mm[Hg] 84 mm[Hg] [facility] ([facility]) Systolic blood pressure 166 mm[Hg] 166 mm[Hg] [facility] [place] body weight 135 [lb_av] 135 [lb_av] MEDEN T ([facility]) Oxygen saturation in Arterial blood by Pulse oximetry 99 % 99 % [facility] ([facility]) Body temperature 98.1 [degF] 98.1 [degF] [facility] ([facility]) Respiratory rate 18 /min 18 /min [facility] ( [facility]) Heart rate 94 /min 94 /min [facility] ([facility]) Body mass index (BMI) [Ratio] 30.0 kg/m2 30.0 k g/m2 [facility] ([facility]) Body weight 191.25 [lb_av] 191.25 [lb_av] MEDEN T ([facility]) Body height 67 [in_i] 67 [in_i] [facility] ([facility] 5'7" Diastolic blood pressure 76 mm[Hg] 76 mm[Hg] [facility] ([facility]) Systolic blood pressure 124 mm[Hg] 124 mm[Hg] M EDENT ([facility]) Oxygen saturation in Arterial blood by Pulse oximetry 99 % 99 % [facility] ([facility]) Body temperature 99.1 [degF] 99.1 [degF] [facility] ([facility]) Respiratory rate 18 /min 18 /min [facility] ( [facility]) Heart rate 53 /min 53 /min [facility] ([facility]) Body mass index (BMI) [Ratio] 30.2 kg/m2 30.2 k g/m2 [facility] ([facility]) Body weight 193.12 [lb_av] 193.12 [lb_av] MEDEN T ([facility]) Body height 67 [in_i] 67 [in_i] [facility] ([facility] 5'7" Diastolic blood pressure 78 mm[Hg] 78 mm[Hg] [facility] ([facility]) Systolic blood pressure 136 mm[Hg] 136 mm[Hg] M EDENT ([facility]) Patient Treatment Plan of Care Planned Activity Planned Date Details Description Data Source (s) Amoxicillin 500 MG Oral Capsule 01/29/2020 12:00:00 AM [facility] Rosuvastatin calcium 5 MG Oral Tablet 08/31/2019 09:00:00 AM [facility] Aspirin 81 MG Oral Tablet 08/31/2019 12:00:00 AM [facility] Multivital 08/31/2019 12:00:00 AM [facility]) Losartan Potassium 50 MG 08/31/2019 12:00:00 AM [facility] ([facility]) Levothyroxine Sodium 75 MCG 08/31/2019 12:00:00 AM [facility] ([facility]) Fish Oil 875 MG 08/31/2019 12:00:00 AM [facility] ([facility]) Docusate Sodium 100 MG 08/31/2019 12:00:00 AM [facility] ([facility]) Crestor 5 MG 08/31/2019 12:00:00 AM [facility] ([facility]) Calcium 600+D 600-400 MG-UNIT 08/31/2019 12:00:00 AM [facility] ([facility]) Aspirin 81 MG 08/31/2019 12:00:00 AM [facility] ([facility]) Acetaminophen Extra Strength 500 MG 08/31/2019 12:00:00 AM [facility] ([facility]) Osteo Bi-Flex Adv Joint Shield 08/31/2019 12:00:00 AM [facility] ([facility]) Losartan Potassium 25 MG Oral Tablet 08/30/2019 09:00:00 AM [facility] Oxycodone Hydrochloride 5 MG Oral Tablet 08/30/2019 12:00:00 AM [facility] Docusate Sodium 100 MG Oral Capsule 08/30/2019 12:00:00 AM [facility] Acetaminophen 325 MG Oral Tablet 08/30/2019 12:00:00 AM [facility] Oxycodone Hydrochloride 5 MG Oral Tablet 08/28/2019 12:07:03 PM [facility] fentaNYL (SUBLIMAZE) (PF) injection 25 mcg 08/28/2019 12:07:03 PM E [facility] metaxalone 800 MG Oral Tablet 08/28/2019 12:07:03 PM [facility] Bisacodyl 10 MG Rectal Suppository 08/28/2019 12:07:03 PM [facility] Magnesium Hydroxide 80 MG/ML Oral Suspension 08/28/2019 12:07:03 PM [facility] sodium phosphate 67.8 MG/ML / Sodium Phosphate, Monoba sic 185 MG/ML Enema 08/28/2019 12:07:03 PM [facility] Aspirin 81 MG Oral Tablet [facility]
[2020-10-10 21:52] LABS: BASO # 0.1 10^3/uL (0.0-0.2); EOS # 0.1 10^3/uL (0.0-0.5); EOS % 1.9 % (0.0-3.0); HEMATOCRIT 42.2 % (36.0-47.0); HEMOGLOBIN 13.6 g/dl (12.0-15.5); LYMPH # 2.1 10^3/uL (1.5-5.0); LYMPH % 30.9 % (24.0-44.0); MEAN CORPUSCULAR HGB CONC 32.2 g/dl (32.0-36.5); MONO # 0.6 10^3/uL (0.0-0.8); MONO % 8.5 % (2.0-8.0); NEUTROPHILS # 3.9 10^3/uL (1.5-8.5); NEUTROPHILS % 57.6 % (36.0-66.0); PLATELET COUNT, AUTOMATED 258 10^3/uL (150-450); RED BLOOD COUNT 4.54 10^6/uL (4.00-5.40); WHITE BLOOD COUNT 6.7 10^3/uL (4.0-10.0)
[2020-10-10 21:56] LABS: INR 0.91; PROTHROMBIN TIME 12.4 SECONDS (12.5-14.3)
[2020-10-10 21:57] LABS: PARTIAL THROMBOPLASTIN TIME 33.1 SECONDS (24.2-38.5)
[2020-10-10 21:59] LABS: D-DIMER QUANT 853.27 ng/ml (<500)
[2020-10-10 22:11] LABS: ALBUMIN 3.9 GM/DL (3.2-5.2); ALT/SGPT 17 U/L (12-78); BILIRUBIN,DIRECT < 0.1 MG/DL (0.0-0.2); BILIRUBIN,TOTAL 0.3 MG/DL (0.2-1.0); BLOOD UREA NITROGEN 16 MG/DL (7-18); CARBON DIOXIDE LEVEL 25 MEQ/L (21-32); CHLORIDE LEVEL 104 MEQ/L (98-107); CK-MB VALUE MASS < 1.0 NG/ML (<3.6); CPK CREATINE PHOSPHOKINASE 66 U/L (26-192); CREATININE FOR GFR 0.78 MG/DL (0.55-1.30); FERRITIN 79 NG/ML (8-252); FREE T4 1.41 NG/DL (0.76-1.46); GLOMERULAR FILTRATION RATE > 60.0 (>45); GLUCOSE, FASTING 125 MG/DL (70-100); LDH LACTATE DEHYDROGENASE 180 U/L (84-246); MAGNESIUM LEVEL 2.2 MG/DL (1.8-2.4); MB/CK RELATIVE INDEX 1.52 (< OR =4); NT-PRO BNP 99 PG/ML (<125); POTASSIUM SERUM 3.5 MEQ/L (3.5-5.1); SODIUM LEVEL 136 MEQ/L (136-145); THYROID STIMULATING HORMONE 0.224 uIU/ML (0.358-3.740); TOTAL PROTEIN 7.3 GM/DL (6.4-8.2); TROPONIN I < 0.02 NG/ML (< 0.10)
[2020-10-10 22:21] LABS: ERYTHROCYTE SEDIMENTATION RATE 9 mm/hr (0-30)
--- NOTE | 2020-10-10 22:35 | REPVR ---
PROCEDURE INFORMATION: Exam: XR Chest Exam date and time: 10/10/20 (9:58pm) Age: 70 years old Clinical indication: Hypertension TECHNIQUE: Imaging protocol: Portable CXR Views: 1 view the COMPARISON: Chest films of 09/13/20 FINDINGS: Lungs: Unremarkable. No consolidation. Pleural spaces: Unremarkable. No pleural effusions. No pneumothorax. Heart/Mediastinum: Stable heart size. Dual-chamber pacemaker electrodes remain in place. Bones/joints: Unremarkable. IMPRESSION: No acute findings. The lung herr remain clear. Electronically signed by: Mitzi Spencer On 10/10/2020 22:36:09 PM
[2020-10-10] MEDS ORDERED: ISOVUE-370 76% 100ML VIAL As Ordered ONE (23:07)
--- OUTSIDE RECORDS SUMMARY | 2020-10-10 23:24 | CCD ---
Author Author [facility] Organization [facility] Address Unknown Phone Unavailable Care Team Providers Care After School Program Director Name Role Phone Ellis Ruiz Unavailable Unavailable [...] Castillo Unavailable Unavailable Sumanth Castillo Unavailable Unavailable Sumanth [...] is protected by Article 27-F of the [facility] Public Health law. If you continue you may have access to information: Regarding HIV / AIDS; Provided by facilities licensed or operated by the [facility] Office of Mental Health; or Provided by the [facility] Office for People With Developmental Disabilities. If such information is present, then the following [facility] mandated warning applies: This information has [...] law may result in a fine or correction sentence or both. A general authorization for the release of medical or other information is NOT sufficient authorization for further disc losure. Allergies and Adverse Reactions Type Description Substance Reaction Status Data Source(s ) Drug Class NO KNOWN ALLERGIES NO KNOWN ALLERGIES [facility] No Known Drug Allergies No Known Drug Allergies No Known Drug Aller gies active NETSMART ([facility] ) Family History Family Member Name Family Member Gender Family Member Status Date o f Status Description Data Source(s) Unknown Male Problem MEDENT ([facility]) Unknown Male Problem [facility]ENT ([facility]) Unknown Female Problem MEDENT ([facility] Medicine [facility]) Encounters Encounter Providers Location Date Indications Data Source(s ) Outpatient Attender: IRWIN JOSHI Main Office 09/20/2020 1 1:45:00 AM EST MEDENT ([facility]) Outpatient Attender: ROSIE DALEY [facility] 09/17/2020 02:00:00 PM EST MEDENT ([facility]) Outpatient Attender: ROSIE DALEY [facility] 09/10/2020 09:40:00 AM EST MEDENT ([facility]) Outpatient Attender: Lux JOSHI 09/03/2020 12:00:00 AM [facility] Outpatient Attender: ROSIE DALEY DO [facility] 08/20/2020 03:00:00 PM EST MEDENT ([facility]amil [facility]) Outpatient Attender: Lux JOSHI [id number] 04/03/2020 12 :00:00 AM EDT Presence of right artificial hip joint [facility] Presence of right artificial hip joint Outpatient Referrer: BIANKA PETERS MD 04/03/2020 12:00:0 0 AM EDT Presence of right artificial hip joint [facility] Presence of right artificial hip joint Outpatient Attender: BIANKA PETERS MD 03/12/2020 12:00:00 AM E [facility] Outpatient Attender: Pierre JOSHI Family Medicine [facility] 02/01/2020 09:30:00 AM EDT MEDLENARD (Family Medicine [facility]) Outpatient Attender: BIANKA PETERS MD 01/23/2020 12:00:00 AM E [facility] Outpatient Attender: Lux JOSHI 12/19/2019 12:00:00 AM EDT [facility] Outpatient Attender: BIANKA PETERS MD [id number] 0 12:00:00 AM EST - 10/17/2019 02:04:23 PM EST Presence of right artificial hip joint [facility] Presence of right artificial hip joint Outpatient Referrer: BIANKA PETERS MD 10/17/2019 12:00:0 0 AM EST Presence of right artificial hip joint [facility] Presence of right artificial hip joint Outpatient Attender: BIANKA PETERS MD [id number] 0 12:00:00 AM EST - 10/12/2019 07:51:28 AM EST Unilateral primary osteoarthritis, right [facility] Unilateral primary osteoarthritis, right hip Outpatient Referrer: BIANKA PETERS MD 09/19/2019 12:00:0 0 AM EST Unilateral primary osteoarthritis, right [facility] Unilateral primary osteoarthritis, right hip Outpatient Attender: BIANKA PETERS MD 09/12/2019 12:00:00 AM E [facility] Outpatient Attender: BIANKA PETERS MD 09/05/2019 12:00:00 AM E [facility] Outpatient Attender: Sumanth JOSHI [facility] 09/04/2019 01:40:00 PM EST MEDENT (Family Medicine [facility]) 08/31/2019 12:00:00 AM EST - 020 08:44:15 AM EST NETSMART ([facility]) Inpatient Attender: BIANKA PETERS MDAdmitter: BIANKA PETERS MD [id number] 08/28/2019 12:00:00 AM EST - 08/30/2019 02:57:00 PM EST Unilateral primary osteoarthritis, right hip [facility] Unilateral primary osteoarthritis, right hip Patient [...] TABLET BY MOUTH EVERY DAY SOLD: 10/05/2020 [facility] Losartan Potassium 50 MG Oral Tablet Losartan Potassium 09/2020 12:00:00 AM EST ORAL active MEDENT ([facility]) 5 mg 08/21/2020 12:00:00 AM EST tablet 30 TAKE ONE TABLET BY MOUTH EVERY MORNING TAKE ONE TABLET BY MOUTH EVERY MORNING SOLD: 08/21/2020 [facility] Amlodipine 5 MG Oral Tablet Amlodipine Besylate 08/20/2020 12:00:00 A M EST ORAL completed MEDENT ([facility]) 500 mg 01/31/2020 12:00:00 AM EDT tablet [...] by mouth 1 hour prior to procedure [facility] 500 mg 01/29/2020 12:00:00 AM EDT capsule 4 TAKE FOUR CAPSULES BY MOUTH 1 HOUR PRIOR TO DENTAL PROCEDURE TAKE FOUR CAPSULES BY MOUTH 1 HOUR PRIOR TO DENTAL PROCEDURE SOLD: 01/29/2020 [facility] Rosuvastatin calcium 5 MG Oral Tablet rosuvastatin (CR ESTOR) tablet 5 mg rosuvastatin (CRESTOR) tablet 5 mg 08/31/2019 09:00:00 AM EST 5 mg Oral active 5 mg, Oral, Twice We ekly, First dose on Yocasta 08/31/19 at 0900, For 30 days [facility] Medication administered onsite Aspirin 81 MG Oral Tablet Aspirin 81 MG Oral Tablet 08/31/2019 1 2:00:00 AM EST 81 mg Oral active Take 1 tablet by mouth daily [facility] Crestor 5 MG Crestor 08/31/2019 12:00:00 AM EST co mpleted NETSMART ([facility]) Docusate Sodium 100 MG Docusate Sodium 08/31/2019 12:00:00 AM EST completed [facility]SMART ([facility]) Fish Oil 875 MG Fish Oil 08/31/2019 12:00:00 AM EST completed NETSMART ([facility]) Levothyroxine Sodium 75 MCG Levothyroxine Sodium 08/31/2019 12:00:00 AM EST completed [facility]SMART ( [facility]) Losartan Potassium 50 MG Losartan Potassium 08/31/2019 12:00:00 AM EST completed [facility]SMART ([facility]) Multivital Multivital 08/31/2019 12:00:00 AM EST c ompleted NETSMART ([facility]) Osteo Bi-Flex Adv Joint Shield Osteo Bi-Flex Adv Joint Shiel d 08/31/2019 12:00:00 AM EST completed [facility]SMART ([facility]) Aspirin 81 MG Aspirin 08/31/2019 12:00:00 AM EST c ompleted NETSMART ([facility]) Acetaminophen Extra Strength 500 MG Acetaminophen Extra Stre ngth 08/31/2019 12:00:00 AM EST completed [facility]SMART ([facility]) Calcium 600+D 600-400 MG-UNIT Calcium 600+D 08/31/2019 12:00:00 AM EST completed [facility]SMART ([facility]) Losartan Potassium 25 MG Oral Tablet losartan (COZAAR) tablet 50 mg losartan (COZAAR) tablet 50 mg 08/30/2019 09:00:00 AM EST 50 mg Oral active 50 mg, Oral, Daily Standard, First dose (after last modification) on Wed08/30/19 at 0900, For 30 days
Check vital signs before administering
[facility] Medication administered onsite Acetaminophen 325 MG Oral Tablet Acetaminophen 325 MG Oral T ablet 08/30/2019 12:00:00 AM EST 650 mg Oral active Take 2 tablets by mouth every 6 (six) hours as needed (mild pain) for up to 10 days [facility] Oxycodone Hydrochloride 5 MG Oral Tablet oxyCODONE HCl 5 MG Oral Tablet (ROXICODONE) oxyCODONE HCl 5 MG Oral Tablet (ROXICODONE) 08/30/2019 12:00:00 AM EST Oral active Take 1-2 tablets by mouth every 4 (four) hours as needed (moderate to severe pain) for up to 7 days, Max Daily Dose: 8 tablets [facility] Docusate Sodium 100 MG Oral Capsule Docu sate Sodium 100 MG Oral Capsule (COLACE) Docusate Sodium 100 MG Oral Capsule (COLACE) 08/30/2019 12:00:00 AM EST 100 mg Oral active Take 1 cap ledy by mouth Two times daily as needed for Constipation for up to 10 days [facility] MAGNESIUM GLUCONATE 500 MG Oral Tablet m agnesium gluconate (MAGONATE) tablet TABS 500 mg magnesium gluconate (MAGONATE) tablet TABS 500 mg 08/16 09:00:00 AM EST 500 mg Oral active 500 mg, Oral, Daily Standard, First dose on Wed08/29/19 at 0900, For 30 days [facility] Medication administered onsite 0.4 ML Enoxaparin sodium 100 MG/ML Prefi lled Syringe enoxaparin sodium (LOVENOX) injection 40 mg enoxaparin sodium (LOVENOX) injection 40 mg 08/29/2019 09:00:00 AM EST 40 mg Subcutaneous active 40 mg, Subcutaneous, Daily Standard, First dose on Wed08/29/19 at 0900, For 30 days [facility] Medication administered onsite sodium chloride 0.9 % bolus 500 mL [id number] 08/29/2019 07:15:00 AM EST 500 mL Intravenous completed 500 mL, Intravenous, Once, Wed08/29/19 at 0715, For 1 dose [facility] Medication administered onsite Levothyroxine Sodium 0.075 MG Oral Table t levothyroxine (SYNTHROID, LEVOTHROID) tablet 75 mcg levothyroxine (SYNTHROID, LEVOTHROID) tablet 75 mcg 06:00:00 AM EST 75 ug Oral active 75 mcg, Oral, Daily at 0600, First dose on Wed08/29/19 at 0600, For 30 days [facility] Medication administered onsite sennosides, ALF 8.6 MG Oral Tablet senna 8.6 MG 2 tablet sen na 8.6 MG 2 tablet 08/28/2019 10:00:00 PM EST 2 {tbl} Oral active 2 tablet, Oral, Nightly, First dose on Wed08/28/19 at 2200, For 30 days [facility] Medication administered onsite sodium chloride 0.9 % bolus 500 mL [id number] 08/28/2019 09:15:00 PM EST 500 mL Intravenous completed 500 mL, Intravenous, Once, Wed08/28/19 at 2115, For 1 dose [facility] Medication administered onsite Docusate Sodium 100 MG Oral Capsule docusate sodium (C OLACE) capsule 100 mg docusate sodium (COLACE) capsule 100 mg 08/28/2019 09:00:00 PM EST 100 mg Oral active 100 mg, Oral, 2 Times Daily, First dose on Wed08/28/19 at 2100, For 30 days [facility] Medication administered onsite 2 ML Metoclopramide 5 MG/ML Prefilled Sy ringe metoclopramide (REGLAN) injection 10 mg metoclopramide (REGLAN) injection 10 mg 08/28/2019 06:08:[address] 10 mg Intravenous active 10 mg, I ntravenous, Every 6 hours PRN, Nausea, Starting Wed08/28/19 at 1808, For 30 days [facility] Medication administered onsite sodium chloride (preservative [...] 1207, For 30 days [Order 6 End] [facility] Medication administered onsite Cefazolin 2000 MG Injection ceFAZolin (ANCEF) IVPB 2 g in dextrose (premix) ceFAZolin (ANCEF) IVPB 2 g in dextrose (premix) 08/28/2019 05:00:00 PM EST 2 g Intravenous completed 2 g, Int ravenous, Administer over 30 Minutes, Every 8 hours, First dose on Wed08/28/19 at 1700, For 2 doses [facility] Medication administered onsite Bisacodyl 10 MG Rectal Suppository bisacodyl (DULCOLAX ) suppository 10 mg bisacodyl (DULCOLAX) suppository 10 mg 08/28/2019 12:07:03 PM EST 10 mg Rectal active 10 mg, Rectal, Daily PRN, Constipation, Starting Wed08/28/19 at 1207, For 30 days [facility] Medication administered onsite Magnesium Hydroxide 80 MG/ML Oral Suspen silverio magnesium hydroxide (MILK OF MAGNESIA) 400 MG/5ML suspension 30 mL magnesium hydroxide (MILK OF MAGNESIA) 4 00 MG/5ML suspension 30 mL 08/28/2019 12:07:03 PM EST 30 mL Oral active 30 mL, Oral, Nightly PRN, Constipation, Starting Wed08/28/19 at 1207, For 30 days
If serum creatinine > 2 notify provider before administering.
[facility] Medication administered onsite Acetaminophen 325 MG [...] mg from all sources in 24 hours.
[facility] Medication administered onsite Oxycodone Hydrochloride 5 MG Oral Tablet oxyCODONE (ROXICODONE) immediate release tablet 5 mg oxyCODONE (ROXICODONE) immediate release tablet 5 mg 08/28/2019 12:07:03 PM EST 5 mg Oral active 5 mg, Oral, Every 4 hours PRN, Moderate Pain (Pain Scale Score 4-6), Starting Wed08/28/19 at 1207, For 3 days
If no SAS PROGRAMMER or when SAS PROGRAMMER has been DC.
Oxycodone immediate release is limited to 10 mg per dose. Higher doses ( only) require Pain Service consultation and approval.
[facility] Medication administered onsite Oxycodone Hydrochloride 5 MG Oral Tablet oxyCODONE (ROXICODONE) immediate release tablet 10 mg oxyCODONE (ROXICODONE) immediate release tablet 10 mg 08/28/2019 12:07:03 PM EST 10 mg Oral active 10 mg, Oral, Every 4 hours PRN, Severe Pain (Pain Scale Score 7-10), or pre-painful procedure or activity, Starting Wed08/28/19 at 1207, For 3 days
If no SAS PROGRAMMER or when SAS PROGRAMMER has been DC.
Oxycodone immediate release is limited to 10 mg per dose. Higher doses ( only) require Pain Service consultation and approval.
[facility] Medication administered onsite fentaNYL (SUBLIMAZE) (PF) injection 25 mcg [id number] 08/28/2019 12:07:03 PM EST 25 ug Intravenous active 25 m cg, Intravenous, Every 2 hours PRN, breakthrough pain, Starting Wed08/28/19 at 1207, For 3 days [facility] Medication administered onsite metaxalone 800 MG Oral Tablet metaxalone (SKELAXIN) ta blet 800 mg metaxalone (SKELAXIN) tablet 800 mg 08/28/2019 12:07:03 PM EST 800 mg Oral active 800 mg, Oral, Three Times Daily-PRN, Mu scle spasms, Starting Wed08/28/19 at 1207, For 30 days [facility] Medication administered onsite ondansetron (ZOFRAN) injection 4 mg [id number] 08/28/2019 12:07:0 3 PM EST 4 mg Intravenous active 4 mg, In travenous, Every 6 hours PRN, Nausea, Vomiting, Starting Wed08/28/19 at 1207, For 30 days [facility] Medication administered onsite POLYETHYLENE GLYCOL 3350 [...] due to potential increased risk for aspiration.
[facility] Medication administered onsite sodium phosphate 67.8 MG/ML / Sodium Kenan sphate, Monobasic 185 MG/ML Enema sodium phosphate (FLEET) enema (ADULT) 133 mL sodium phosphate (FLEET) enema (ADULT) 133 mL 08/28/2019 12:07:03 PM EST 133 mL Rectal active 133 mL, Rectal, Daily PRN, Constipation, Starting Wed08/28/19 at 1207, For 30 days [facility] Medication administered onsite NaCl infusion 0.9 % [id number] 08/28/2019 11:45:00 AM EST Intravenous active at 100 mL/hr, Intrav enous, Continuous, Starting Wed08/28/19 at 1145, For 30 days [facility] Medication administered onsite fentaNYL (SUBLIMAZE) (PF) injection 50 mcg [id number] 08/28/2019 11:19:53 AM EST 50 ug Intravenous aborted 50 m cg, Intravenous, Every 5 min PRN, Moderate Pain (Pain Scale Score 4-6), Starting Wed08/28/19 at 1119, For 4 doses, Recovery [facility] Medication administered onsite Calcium Chloride 0.0014 MEQ/ML / Potassi um Chloride 0.004 MEQ/ML / Sodium Chloride 0.103 MEQ/ML / Sodium Lactate 0.028 MEQ/ML Injectable Solution lactated ringers infusion lactated ringers infusion 08/28/2019 06:15:00 AM EST Intravenous aborted at 100 mL/hr, Intravenous, Continuous, Starting Wed08/28/19 at 0615, For 30 days
Keep Vein Open. Use Wide Tubing.
Pre-op [facility] Medication administered onsite gabapentin 100 MG Oral Capsule gabapentin (NEURONTIN) capsule 200 mg gabapentin (NEURONTIN) capsule 200 mg 08/28/2019 06:15:00 AM EST 200 mg Oral completed 200 mg, Oral, Once, Wed08/28/19 at 0615, For 1 dose, Pre-op [facility] Medication administered onsite bupivacaine (MARCAINE) 0.25 % 20 mL, morphine sulfate (PF) 1 0 mg syringe 08/28/2019 06:15:00 AM EST Infiltration complete d Infiltration, Once, Wed08/28/19 at 0615, For 1 dose, Pre-op [facility] Medication administered onsite Acetaminophen 325 MG Oral Tablet acetaminophen (TYLENO L) tablet 975 mg acetaminophen (TYLENOL) tablet 975 mg 08/28/2019 06:15:00 AM EST 97 5 mg Oral completed 975 mg, Oral, O nce, Wed08/28/19 at 0615, For 1 dose, Pre- op
Maximum daily dose of acetaminophen is 3,000 mg from all sources in 24 hours.
[facility] Medication administered onsite celecoxib 100 MG Oral Capsule celecoxib (CELEBREX) cap ledy 100 mg celecoxib (CELEBREX) capsule 100 mg 08/28/2019 06:15:00 AM EST 100 mg Oral completed 100 mg, Oral, Once, Wed08/28/19 at 0615, For 1 dose, Pre-op [facility] Medication administered onsite Aspirin 81 MG Oral Tablet Aspirin 81 MG Oral Tablet 81 mg Oral aborted Take 81 mg by mouth daily [facility] Insurance Providers Payer name Policy type / Coverage type Policy ID Covered green party ID Covered green party's relationship to delgado Policy Delgado Plan Information MEDICARE COMPLETE [id number] SP [id number] MEDICARE COMPLETE[facility] O [id number] S [id number] [facility] [id number] SP [id number] [facility] [id number] SP [id number] MEDICARE COMPLETE [id number] SP [id number] [facility] MEDICARE COMPLETE G [id number] Self [id number] [facility] MEDICARE COMPLETE G [id number] Self [id number] [facility] ([facility]) Commercial [id number] Self [id number] [employer] Commercial [id number] Self [id number] [employer] Commercial [id number] Self [id number] [facility] [employer] Medigap Part [id number] Self [id number] [employer] Commercial [id number] Self [id number] [employer] Commercial [id number] Self [id number] MEDICARE COMPLETE [id number] SP [id number] MEDICARE COMPLETE [id number] SP [id number] MEDICARE COMPLETE [id number] SP [id number] [place] [place] [id number] SP [id number] [facility] ([facility]) Commercial [id number] Self [id number] MEDICARE COMPLETE-UHC O [id number] S [id number] [facility] ([facility]) Commercial [id number] Self [id number] [facility] ([facility]) Commercial [id number] Self [id number] MEDICARE COMPLETE [id number] SP [id number] [facility] ([facility]) Commercial [id number] Self [id number] [facility] [employer] Medigap Part B [id number] Self [id number] [employer] Commercial [id number] Self [id number] [employer] Commercial [id number] Self [id number] [facility] [employer] Medigap Part B [id number] Self [id number] [employer] Commercial [id number] Self [id number] [employer] Commercial [id number] Self [id number] MEDICARE COMPLETE-UHC O UNAVAILABLE S UNAVAILABLE [facility] [employer] Medigap Part B [id number] Self [id number] [facility] U/W Commercial [id number] Self [id number] [facility] U/W Commercial [id number] Self [id number] [facility] U/W Commercial [id number] Self [id number] [employer] [place] [id number] SP [id number] [place] PPO 302/307 [id number] SP [id number] [place] PPO 302/307 [id number] SP [id number] BCBS [employer] Ppo U/W [facility] Part B [id number] Family Dependent [id number] [place] [employer] [place] Commercial [id number] Family Dep endent [id number] [facility] U/W Commercial [id number] Self [id number] [place] PPO 302/307 [id number] SP [id number] [facility] U/W Commercial Self [place] [phone] [id number] SP [id number] Problems, Conditions, and Diagnoses Code Display Name Description Problem Type Effective Dates Data Source(s) 707170238 Cardiac pacemaker in situ Cardiac pacemaker in situ Pr oblem 09/20/2020 12:00:00 AM EST MEDENT ([facility]) J45.909 Unspecified asthma, uncomplicated Unspecified as thma, uncomplicated Problem 08/30/2019 12:00:00 AM EST NETSMART ([facility]) Z91.81 History of falling History of falling Problem 0 12:00:00 AM EST NETSMART ([facility]) 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 M16.11 Unilateral primary osteoarthritis, right hip Unilateral primary osteoarthritis, right hip Diagnosis 08/28/2019 11:35:36 AM [facility] M16.9 Osteoarthritis of hip, unspecified Osteoarthriti s of hip, unspecified Diagnosis 08/28/2019 05:40:00 AM [facility] OA (osteoarthritis) of hip OA (osteoarthritis) of hip Diagnosis 08/28/2019 05:40:00 AM [facility] Primary osteoarthritis of right hip [M16 .11] Primary osteoarthritis of right hip [M16.11] Diagnosis 08/28/2019 05:40:00 AM [facility] Surgeries/Procedures Procedure Description Date Indications Data Source(s) Electrocardiogram Complete 09/04/2019 12:00:00 AM LUCIAN GEE ([facility]) POCT GLUCOSE, DOCKED POCT GLUCOSE, DOCKED Routine 08/30/2019 11:49 AM EST 08/30/2019 04:49:00 PM [facility] POCT GLUCOSE, DOCKED POCT GLUCOSE, DOCKED Routine 08/30/2019 8:01 AM EST 08/30/2019 01:01:00 PM [facility] BLOOD COUNT COMPLETE AUTOMATED CBC Routine 08/30/2019 5:01 A M EST 08/30/2019 10:01:00 AM [facility] GLUCOSE QUANTITATIVE BLOOD XCPT REAGENT STRIP POCT GLUCOSE, DOC ELIASD Routine 08/29/2019 9:41 PM EST 08/30/2019 02:41:00 AM [facility] GLUCOSE QUANTITATIVE BLOOD XCPT REAGENT STRIP POCT GLUCOSE, DOC ELIASD Routine 08/29/2019 4:37 PM EST 08/29/2019 09:37:00 PM [facility] GLUCOSE QUANTITATIVE BLOOD XCPT REAGENT STRIP POCT GLUCOSE, DOC ELIASD Routine 08/29/2019 12:21 PM EST 08/29/2019 05:21:00 PM [facility] GLUCOSE QUANTITATIVE BLOOD XCPT REAGENT STRIP POCT GLUCOSE, DOC ELIASD Routine 08/29/2019 8:35 AM EST 08/29/2019 01:35:00 PM [facility] HEPATITIS C ANTIBODY HEPATITIS C ANTIBODY Routine 08/29/2019 5:45 AM EST 08/29/2019 10:45:00 AM [facility] BLOOD COUNT COMPLETE AUTOMATED CBC Routine 08/29/2019 5:45 A M EST 08/29/2019 10:45:00 AM [facility] BASIC METABOLIC PANEL CALCIUM TOTAL BASIC METABOLIC PANEL Routi ne 08/29/2019 5:45 AM EST 08/29/2019 10:45:00 AM [facility] GLUCOSE QUANTITATIVE BLOOD XCPT REAGENT STRIP POCT GLUCOSE, DOC KED Routine 08/28/2019 9:04 PM EST 08/29/2019 02:04:00 AM [facility] GLUCOSE QUANTITATIVE BLOOD XCPT REAGENT STRIP POCT GLUCOSE, DOC KED Routine 08/28/2019 4:56 PM EST 08/28/2019 09:56:00 PM [facility] GLUCOSE QUANTITATIVE BLOOD XCPT REAGENT STRIP POCT GLUCOSE, DOC KED Routine 08/28/2019 12:21 PM EST 08/28/2019 05:21:00 PM [facility] RADIOLOGIC EXAMINATION PELVIS 1/2 VIEWS XR PELVIS 1-2 VIEWS 721 70 Routine 08/28/2019 11:53 AM EST 08/28/2019 04:53:10 PM [facility] LEVEL I SURG PATHOLOGY GROSS EXAMINATION ONLY SURGICA L PATHOLOGY EXAM ([facility] ONLY) Routine 08/28/2019 11:10 AM EST 08/28/2019 04:10:00 PM [facility] [id number] ARTHROPLASTY, ACETABULAR/PROXIMAL FEMORAL PROSTHETIC REPLACEMENT, W/WO AUTOGRAFT/ALLOGRAFT [id number] ARTHROPLASTY, ACETABULAR/PROXIMAL FEMORAL PROSTHETIC REPLACEMENT, W/WO AUTOGRAFT/ALLOGRAFT 08/28/2019 9:27 AM ES T Primary osteoarthritis of right hip 08/28/2019 02:27:0 0 PM EST - 08/28/2019 04:58:00 PM EST Primary osteoarthritis of right hip [facility] Primary osteoarthritis of right hip US GUIDED PERIPHERAL NERVE BLOCK (OR ONLY) US GUIDED PERIPHERAL NERVE BLOCK (OR ONLY) Routine 08/28/2019 7:38 AM EST 08/28/2019 12:38 :00 PM [facility] GLUCOSE QUANTITATIVE BLOOD XCPT REAGENT STRIP POCT GLUCOSE, DOC KED Routine 08/28/2019 6:55 AM EST 08/28/2019 11:55:00 AM [facility] Results ID Date Data Source [id number] 09/12/2020 12:31:00 AM EST [facility] Name Value Range Interpretation Code Description Data Sherron rce(s) Supporting Document(s) SARS coronavirus 2 RNA [Presence] in Res piratory specimen by DWAYNE with probe detection POSITIVE NYSDOH This lab was ordered by [facility] a nd reported by [facility]. ID Date Data Source [id number] 09/11/2020 11:27:00 PM EST [facility] ([facility]) Name Value Range Interpretation Code Description Data Sherron rce(s) Supporting Document(s) Glucose [Mass/volume] in Capillary blood by Glucometer 136 mg/dL 80-115 Above high normal [facility] ([facility]) ID Date Data Source [id number] 09/11/2020 11:00:00 PM EST [facility] ([facility]) Name Value Range Interpretation Code Description Data Sherron rce(s) Supporting Document(s) Lactate [Mass/volume] in Serum or Plasma 1.9 mmol/L 0.4-2.0 Normal (applies to non-numeric results) [facility]) Y/N query for Sepsis Lactate Rule: Y ID Date Data Source [id number] 09/11/2020 10:57:00 PM EST [facility] ([facility]) Name Value Range Interpretation Code Description Data Sherron rce(s) Supporting Document(s) White Blood Count 6.1 10 4.0-10.0 Normal (applies to non-numeri c results) [facility] ([facility]) Red Blood Count 4.20 10 4.00-5.40 Normal (applies to non-numeric results) [facility] ([facility]) Hemoglobin 12.9 g/dL 12.0-15.5 Normal (applies to non-numeric resul ts) [facility] ([facility]) Hematocrit 38.7 % 36.0-47.0 Normal (applies to non-numeric resul ts) [facility] ([facility]) Mean Corpuscular Volume 92.1 fl 80.0-96.0 Normal ( applies to non-numeric results) [facility] ([facility]) Mean Corpuscular Hemoglobin 30.7 pg 27.0-33.0 Norm al (applies to non-numeric results) [facility] ([facility]) Red Cell Distribution Width 14.6 % 11.5-14.5 Above high normal [facility] ([facility]) Mean Corpuscular HGB Conc 33.3 g/dL 32.0-36.5 Normal (applies to non-numeric results) [facility] ([facility]) Platelet Count, Automated 241 10 150-450 Normal (applies to non-numeric results) [facility] ([facility]) Neutrophils % 57.5 % 36.0-66.0 Normal (applies to non-numeric re sults) [facility] ([facility]) Lymph % 29.3 % 24.0-44.0 Normal (applies to non-numeric resul ts) [facility] ([facility]) Rolette % 9.5 % 0.0-5.0 Above high normal [facility] ([facility]) Eos % 2.5 % 0.0-3.0 Normal (applies to non-numeric resul ts) [facility] ([facility]) Baso % 1.0 % 0.0-1.0 Normal (applies to non-numeric resul ts) [facility] ([facility]) Immature Granulocyte % 0.2 % 0-3.0 Normal (applies to non-n umeric results) [facility] ([facility]) Nucleated Red Blood Cell % 0.0 % 0-0 Normal (applies to n on-numeric results) [facility] ([facility]) Neutrophils # 3.5 10 1.5-8.5 Normal (applies to non-numeric re sults) [facility] ([facility]) Lymph # 1.8 10 1.5-5.0 Normal (applies to non-numeric resul ts) [facility] ([facility]) Rolette # 0.6 10 0.0-0.8 Normal (applies to non-numeric resul ts) [facility] ([facility]) Eos # 0.2 10 0.0-0.5 Normal (applies to non-numeric resul ts) [facility] ([facility]) Baso # 0.1 10 0.0-0.2 Normal (applies to non-numeric resul ts) [facility] ([facility]) ID Date Data Source [id number] 09/11/2020 10:57:00 PM EST [facility] ([facility]) Name Value Range Interpretation Code Description Data Sherron rce(s) Supporting Document(s) Appearance, Urine RFX Laboratory test result Nor mal (applies to non-numeric results) [facility] ([facility]) Color, Urine RFX Laboratory test result Normal ( applies to non-numeric results) [facility] ([facility]) Specific Dalton Ur Auto RFX 1.008 1.002-1.035 Nor mal (applies to non-numeric results) [facility] ([facility]) PH,Urine RFX 7.0 units 5.0-9.0 Normal (applies to non-numeric res ults) [facility] ([facility]) Glucose, Urine (Ua) Auto RFX Laboratory test result Normal (applies to non- numeric results) [facility] ([facility]) Protein, Urine Auto RFX Laboratory test result N ormal (applies to non-numeric results) [facility] ([facility]) Ketone, Urine Auto RFX Laboratory test result Above high n ormal [facility] ([facility]) Urobilinogen, Urine Auto RFX 0.2 mg/dL 0.0-2.0 Nor mal (applies to non-numeric results) [facility] ([facility]) Bilirubin, Urine Auto RFX Laboratory test result Normal (applies to non- numeric results) [facility] ([facility]) Nitrite, Urine Auto RFX Laboratory test result N ormal (applies to non-numeric results) [facility] ([facility]) Leukocyte Esterase Ur Auto RFX Laboratory test result Normal (applies to non- numeric results) [facility] ([facility]) Blood, Urine Blood RFX Laboratory test result No rmal (applies to non-numeric results) [facility] ([facility]) WBC, Urine Auto RFX 0 /HPF 0-3 Normal (applies to non-nume patricia results) [facility] ([facility]) RBC, Urine Auto RFX 1 /HPF 0-3 Normal (applies to non-nume patricia results) [facility] ([facility]) Bacteria, Urine Auto RFX Laboratory test result Normal (applies to non-numeric results) [facility] ([facility]) Squam Epithelial Cell Ur Aurfx 0 /HPF 0-6 N ormal (applies to non-numeric results) [facility] ([facility]) Hyaline Cast, Urine Auto RFX 0 /LPF 0-1 Normal (appl ies to non-numeric results) [facility] ([facility]) ID Date Data Source [id number] 09/11/2020 10:57:00 PM EST [facility] ([facility]) Name Value Range Interpretation Code Description Data Sherron rce(s) Supporting Document(s) Amphetamines Level Urine Laboratory test result Normal (applies to non-numeric results) [facility] ([facility]) Barbiturates Urine Laboratory test result Normal (applies to non-numeric results) [facility] ([facility]) Benzodiazepines Urine Laboratory test result Nor mal (applies to non-numeric results) [facility] ([facility]) Cannabinoids Urine Laboratory test result Normal (applies to non-numeric results) [facility] ([facility]) Cocaine Metabolite Urine Laboratory test result Normal (applies to non-numeric results) [facility] ([facility]) Methadone Urine Laboratory test result Normal (a pplies to non-numeric results) [facility] ([facility]) Opiates Urine Laboratory test result Normal (applies t o non-numeric results) [facility] ([facility]) Phencyclidine Urine Laboratory test result Tiffanie l (applies to non-numeric results) [facility] ([facility]) ALL PRESUMPTIVE POSITIVE FINDINGS AR E [...] CALL THE LAB. ID Date Data Source [id number] 09/11/2020 10:57:00 PM EST [facility] ([facility]) Name Value Range Interpretation Code Description Data Sherron rce(s) Supporting Document(s) CPK Creatine Phosphokinase 79 U/L 26-192 Tiffanie l (applies to non-numeric results) [facility] ([facility]) MB/CK Relative Index 1.27 Normal (applies to non-num davonte results) [facility] ([facility]) <content>DIAGNOSIS CRITERIA</content>
<content>MMB ng/ml Relative Index (RI)</content>
<content>NON-AMI < or = 5 N/A</content>
<content>PANIAGUA ZONE > 5 < or = 4</content>
<content>AMI > 5 > 4</content>
<content></content> CK-MB Value Mass Laboratory test result Normal ( applies to non-numeric results) [facility] ([facility]) Troponin I Laboratory test result Normal (applies to non-n umeric results) [facility] ([facility]) <content>Troponin I Reference Interval f or Siemens Harned LOCI:</content>
<content></content>
<content>99th Percentile= 0.00-0.045 ng/ml</content>
<content></content>
<content>Risk Stratification:</content>
<content><= 0.10 ng/ml Decreased Risk for Adverse Clinical</content>
<content>Events.</content>
<content>0.10-1.50 ng/ml Increased Risk for Adverse Clinical</content>
<content>Events. Evaluation of additional</content>
<content>criterion and/or repeat testing in 2-6</content>
<content>hours is suggested to rule out myocardial</content>
<content>damage.</content>
<content>>= 1.50 ng/ml Indicative of Myocardial Injury.</content>
<content></content> ID Date Data Source [id number] 09/11/2020 10:57:00 PM EST [facility] ([facility]) Name Value Range Interpretation Code Description Data Sherron rce(s) Supporting Document(s) Glucose, Fasting 129 mg/dL 70-100 Above high normal [facility] ([facility]) Blood Urea Nitrogen 19 mg/dL 7-18 Above high normal [facility] ([facility]) Creatinine For GFR 0.88 mg/dL 0.55-1.30 Normal (applies to non -numeric results) [facility] ([facility]) Glomerular Filtration Rate Laboratory test result Normal (applies to non- numeric results) [facility] ([facility]) <content>Units are mL/min/1.73 m2</content>
<content></content>
<content>Chronic Kidney Disease Staging per NKF:</content>
<content></content>
<content>Stage I & II GFR >=60 Normal to Mildly Decreased</content>
<content>Stage III GFR 30- 59 Moderately Decreased</content>
<content>Stage IV GFR 15-29 Severely Decreased</content>
<content>Stage V GFR <15 Very Little GFR Left</content>
<content>ESRD GFR <15 on PLUMBING AND HEATING MECHANIC</content>
<content></content> Sodium Level 139 meq/L 136-145 Normal (applies to non-numeric res ults) [facility] ([facility]) Potassium Serum 3.3 meq/L 3.5-5.1 [facility] ([facility]) Chloride Level 105 meq/L 98-107 Normal (applies to non-numeric r esults) [facility] ([facility]) Anion Gap 10 meq/L 8-16 Normal (applies to non-numeric resul ts) [facility] ([facility]) Carbon Dioxide Level 24 meq/L 21-32 Normal (applies to non-num davonte results) [facility] ([facility]) Calcium Level 9.7 mg/dL 8.8-10.2 Normal (applies to non-numeric re sults) [facility] ([facility]) ID Date Data Source [id number] 09/11/2020 10:57:00 PM EST [facility] ([facility]) Name Value Range Interpretation Code Description Data Sherron rce(s) Supporting Document(s) Ethanol [Mass/volume] in Serum or Plasma Laboratory test result 0.000-0.010 Normal (applies to non-numeric results) [facility] ([facility]) Thyrotropin [Units/volume] in Serum or Plasma 0.643 uIU/ML 0. 358-3.740 Normal (applies to non-numeric results) [facility] ([facility]) Magnesium [Mass/volume] in Serum or Plasma 2.1 mg/dL 1.8-2 .4 Normal (applies to non-numeric results) [facility] ([facility]) ID Date Data Source [id number] 09/11/2020 12:00:00 AM [facility] Rosie Bond DO Patient Name: VINAY [id number] Date of : 1950 3 Date of Exam: 09/11/2020POP [place] [id number]#: Fax: [phone] EXAM: CT ANGIOGRAPHY, CHESTCLINICAL INFORMATION: [...] Other findings as described above.Accredited by the [employer] in [place].KOFFI Mckenna/Nohelia you for referring KEY SANZ to our office. Electronically Signed - DENISE JOLLY DO 09/11/20 17:26 Name Value Range Interpretation Code Description Data Sherron rce(s) Supporting Document(s) ID Date Data Source [id number] 09/09/2020 09:07:00 AM EST [facility] ([facility]) Name Value Range Interpretation Code Description Data Sherron rce(s) Supporting Document(s) Thyroid Stimulating Hormone 0.387 [facility] ([facility]) Free T4 1.46 [facility] ([facility]) Hemoglobin A1c/Hemoglobin.total in Blood 5.4 [facility] ([facility]) ID Date Data Source [id number] 09/09/2020 09:07:00 AM EST [facility] Name Value Range Interpretation Code Description Data Sherron rce(s) Supporting Document(s) White Blood Count 4.8 4.0-10.0 [facility] ([facility]) Platelets 256 150-450 [facility] Red Blood Count 4.51 4.00-5.40 [facility] ([facility]) Hemoglobin 13.8 [facility] ([facility]) Hematocrit 41.8 [facility] ([facility]) ID Date Data Source [id number] 09/09/2020 09:07:00 AM EST [facility] Name Value Range Interpretation Code Description Data Sherron rce(s) Supporting Document(s) D-Dimer QN 519.01 [facility] ([facility]) ID Date Data Source [id number] 09/09/2020 09:07:00 AM EST [facility] Name Value Range Interpretation Code Description Data Sherron rce(s) Supporting Document(s) Cholesterol 307 [facility] ([facility]) Triglycerides 68 [facility] ([facility]) Chol/HDL Ratio 4.514 [facility] ([facility]) Cholesterol in LDL [Mass/volume] in Serum or Plasma by calculation 22 5 [facility] ([facility]) HDL 68 [facility] ([facility]) ID Date Data Source [id number] 09/09/2020 09:07:00 AM EST [facility] ([facility]) Name Value Range Interpretation Code Description Data Sherron rce(s) Supporting Document(s) Alanine aminotransferase [Enzymatic activity/volume] in Serum or Pl asma 16 [facility] ([facility]) Albumin [Mass/volume] in Serum or Plasma 3.8 [facility] ([facility]) Calcium [Mass/volume] in Serum or Plasma 10.0 [facility] ([facility]) Chloride [Moles/volume] in Serum or Plasma 100 [facility] ([facility]) Carbon dioxide, total [Moles/volume] in Serum or Plasma 90 [facility] ([facility]) Protein [Mass/volume] in Serum or Plasma 6.7 [facility] ([facility]) Potassium [Moles/volume] in Serum or Plasma 4.9 [facility] ([facility]) Alkaline phosphatase [Enzymatic activity/volume] in Serum or Plasma 3 9 [facility] ([facility]) Aspartate aminotransferase [Enzymatic activity/volume] in Serum or Plasma 5 [facility] ([facility]) Sodium 139 [facility] ([facility]) Urea nitrogen [Mass/volume] in Serum or Plasma 16 [facility] ([facility]) Glucose 110 70-100 [facility] ([facility]) Creatinine For GFR 0.83 [facility] ([facility]) ID Date Data Source [id number] 09/09/2020 09:00:00 AM EST [facility] ([facility]) Name Value Range Interpretation Code Description Data Sherron rce(s) Supporting Document(s) Fibrin D-dimer FEU [Mass/volume] in Platelet poor plasma 519.01 ng/mL Above high normal [facility] ([facility]) ID Date Data Source [id number] 09/09/2020 09:00:00 AM EST [facility] ([facility]) Name Value Range Interpretation Code Description Data Sherron rce(s) Supporting Document(s) Triglycerides Level 68 mg/dL Normal (applies to non-nume patricia results) [facility] ([facility]) Cholesterol Level 307 mg/dL Above high normal [facility] ([facility]) HDL Cholesterol 68 mg/dL Normal (applies to non-numeric results) [facility] ([facility]) LDL Cholesterol 225 mg/dL Above high normal [facility] ([facility]) Non-HDL-C 239 mg/dL Normal (applies to non-numeric resul ts) [facility] ([facility]) Cholesterol Risk Ratio 4.514 Normal (applies to non-n umeric results) [facility] ([facility]) ID Date Data Source [id number] 09/09/2020 09:00:00 AM EST [facility] ([facility]) Name Value Range Interpretation Code Description Data Sherron rce(s) Supporting Document(s) Hemoglobin A1c 5.4 % Normal (applies to non-numeric r esults) [facility] ([facility]) <content>REFERENCE RANGES:</content><br/ ><content></content>
<content><=5.6% NORMAL</content>
<content>5.7-6.4% SUGGESTS IMPAIRED GLUCOSE METABOLISM/PREDIABETIC</content>
<content>>= 6.5% ABNORMAL</content>
<content></content> Estimated Average Glucose 108 mg/dL 60-110 Normal (applies to non-numeric results) [facility] ([facility]) ID Date Data Source [id number] 09/09/2020 09:00:00 AM EST [facility] ([facility]) Name Value Range Interpretation Code Description Data Sherrno rce(s) Supporting Document(s) Glucose, Fasting 110 mg/dL 70-100 Above high normal [facility] Creatinine For GFR 0.83 mg/dL 0.55-1.30 Normal (applies to non -numeric results) [facility] ([facility]) Blood Urea Nitrogen 16 mg/dL 7-18 Normal (applies to non-nume patricia results) [facility] ([facility]) Sodium Level 139 meq/L 136-145 Normal (applies to non-numeric res ults) [facility] ([facility]) Glomerular Filtration Rate Laboratory test result Normal (applies to non- numeric results) [facility] ([facility]) <content>Units are mL/min/1.73 m2</content>
<content></content>
<content>Chronic Kidney Disease Staging per NKF:</content>
<content></content>
<content>Stage I & II GFR >=60 Normal to Mildly Decreased</content>
<content>Stage III GFR 30- 59 Moderately Decreased</content>
<content>Stage IV GFR 15-29 Severely Decreased</content>
<content>Stage V GFR <15 Very Little GFR Left</content>
<content>ESRD GFR <15 on PLUMBING AND HEATING MECHANIC</content>
<content></content> Chloride Level 105 meq/L 98-107 Normal (applies to non-numeric r esults) [facility] ([facility]) Potassium Serum 4.9 meq/L 3.5-5.1 Normal (applies to non-numeric results) [facility] ([facility]) Carbon Dioxide Level 30 meq/L 21-32 Normal (applies to non-num davonte results) [facility] Anion Gap 4 meq/L 8-16 Below low normal [facility] Calcium Level 10.0 mg/dL 8.8-10.2 Normal (applies to non-numeric re sults) [facility] ([facility]) Alt/SGPT 16 U/L 12-78 Normal (applies to non-numeric resul ts) [facility] ([facility]) Ast/Sgot 5 U/L 7-37 Below low normal [facility] Alkaline Phosphatase 39 U/L 45-117 Below low normal [facility] Bilirubin,Total 0.5 mg/dL 0.2-1.0 Normal (applies to non-numeric results) [facility] ([facility]) Total Protein 6.7 GM/DL 6.4-8.2 Normal (applies to non-numeric re sults) [facility] ([facility]) Albumin 3.8 GM/DL 3.2-5.2 Normal (applies to non-numeric resul ts) [facility] ([facility]) Albumin/Globulin Ratio 1.3 1.2-2.2 Normal (applies to non-n umeric results) [facility] ([facility]) ID Date Data Source [id number] 09/09/2020 09:00:00 AM EST [facility] ([facility]) Name Value Range Interpretation Code Description Data Sherron rce(s) Supporting Document(s) Thyroid Stimulating Hormone 0.387 uIU/ML 0.358-3.740 Norm al (applies to non- numeric results) [facility]) Free T4 1.46 ng/dL 0.76-1.46 Normal (applies to non-numeric resul ts) [facility] ([facility]) ID Date Data Source [id number] 09/09/2020 09:00:00 AM EST [facility] ([facility]) Name Value Range Interpretation Code Description Data Sherron rce(s) Supporting Document(s) Calcidiol [Mass/volume] in Serum or Plasma 67.0 ng/mL 30.0- 100.0 Normal (applies to non-numeric results) [facility] ([facility]) ID Date Data Source [id number] 09/09/2020 09:00:00 AM EST [facility] ([facility]) Name Value Range Interpretation Code Description Data Sherron rce(s) Supporting Document(s) Red Blood Count 4.51 10 4.00-5.40 Normal (applies to non-numeric results) [facility] ([facility]) White Blood Count 4.8 10 4.0-10.0 Normal (applies to non-numeri c results) [facility] ([facility]) Hemoglobin 13.8 g/dL 12.0-15.5 Normal (applies to non-numeric resul ts) [facility] ([facility]) Hematocrit 41.8 % 36.0-47.0 Normal (applies to non-numeric resul ts) [facility] ([facility]) Mean Corpuscular Volume 92.7 fl 80.0-96.0 Normal ( applies to non-numeric results) [facility] ([facility]) Mean Corpuscular Hemoglobin 30.6 pg 27.0-33.0 Norm al (applies to non-numeric results) [facility] ([facility]) Mean Corpuscular HGB Conc 33.0 g/dL 32.0-36.5 Normal (applies to non-numeric results) [facility] ([facility]) Red Cell Distribution Width 14.5 % 11.5-14.5 Norm al (applies to non-numeric results) [facility] ([facility]) Platelet Count, Automated 256 10 150-450 Normal (applies to non-numeric results) [facility] ([facility]) Neutrophils % 54.2 % 36.0-66.0 Normal (applies to non-numeric re sults) [facility] ([facility]) Lymph % 32.6 % 24.0-44.0 Normal (applies to non-numeric resul ts) [facility] ([facility]) Rolette % 8.9 % 0.0-5.0 Above high normal [facility] ([facility]) Eos % 3.1 % 0.0-3.0 Above high normal [facility] ([facility]) Baso % 1.0 % 0.0-1.0 Normal (applies to non-numeric resul ts) [facility] ([facility]) Immature Granulocyte % 0.2 % 0-3.0 Normal (applies to non-n umeric results) [facility] ([facility]) Nucleated Red Blood Cell % 0.0 % 0-0 Normal (applies to n on-numeric results) [facility] ([facility]) Neutrophils # 2.6 10 1.5-8.5 Normal (applies to non-numeric re sults) [facility] ([facility]) Lymph # 1.6 10 1.5-5.0 Normal (applies to non-numeric resul ts) [facility] ([facility]) Eos # 0.2 10 0.0-0.5 Normal (applies to non-numeric resul ts) [facility] ([facility]) Rolette # 0.4 10 0.0-0.8 Normal (applies to non-numeric resul ts) [facility] ([facility]) Baso # 0.1 10 0.0-0.2 Normal (applies to non-numeric resul ts) [facility] ([facility]) ID Date Data Source [id number] 08/20/2020 02:36:00 PM EST [facility] ([facility]) Name Value Range Interpretation Code Description Data Sherron rce(s) Supporting Document(s) Respiratory Panel Laboratory test result [facility] ([facility]) This respiratory PCR panel detects Influ [...] SARS-CoV-2 (COVID 19) ID Date Data Source [id number] 08/20/2020 02:36:00 PM EST [facility] Name Value Range Interpretation Code Description Data Sherron rce(s) Supporting Document(s) Respiratory pathogens identified [Type] in Nasopharynx by Probe and target amplification method SARS-CoV-2 (COVID 19) [facility] This lab was ordered by [facility] a nd reported by [facility]. ID Date Data Source [id number] 04/04/2020 07:18:[address] [facility] XR HIP- UNILAT, 2-3 VIEWS [id number] RE SULTInterpreted by:VALERIA Wright AND RIGHT HIPCLINICAL STATEMENT: Status post [...] rce(s) Supporting Document(s) ID Date Data Source [id number] 04/03/2020 10:05:[address] [facility] Name Value Range Interpretation Code Description Data Sherron rce(s) Supporting Document(s) Progress Note [facility] ASLXZj9mQhAZVfJx89/WQCaiJWQtd9VbIGjoHMw7RYpwUIWoN4FcOWW5vM0kBPF6PUxZRqFbPpGjQGZ5 lbm [file] DQogICAgICAgICAgICAgICAgICAgICAgICAgICAgICAgICAgICAgICAgICAgICAgICAgICAgICAgICAg ICAgICAgICAgICAgICAgICAgICAgICAgICAgICAgIC AgICAgICAgICAgDQogICAgICAgICAgICAgICAgICAgICAgICAgICAgICAgICAgICAgICAgICAgICAgIC AgICAgICAgICAgICAgICAgICAgICAgICAgICAgICAgICAgICAgICAgICAgICAgICAgICAgDQogICAgIC AgICAgICAgICAgICAgICAgICAgICAgICAgICAgICAg ICAgICAgICAgICAgICAgICAgICAgICAgICAgICAgICAgICAgICAgICAgICAgICAgICAgICAgICAgICAg ICAgDQogICAgICAgICAgICAgICAgICAgICAgICAgICAgICAgICAgICAgICAgICAgICAgICAgICAgICAg ICAgICAgICAgICAgICAgICAgICAgICAgICAgICAgIC AgICAgICAgICAgICAgDQogICAgICAgICAgICAgICAgICAgICAgICAgICAgICAgICAgICAgICAgICAgIC AgICAgICAgICAgICAgICAgICAgICAgICAgICAgICAgICAgICAgICAgICAgICAgICAgICAgICAgDQogIC AgICAgICAgICAgICAgICAgICAgICAgICAgICAgICAg ICAgICAgICAgICAgICAgICAgICAgICAgICAgICAgICAgICAgICAgICAgICAgICAgICAgICAgICAgICAg ICAgICAgDQogICAgICAgICAgICAgICAgICAgICAgICAgICAgICAgICAgICAgICAgICAgICAgICAgICAg ICAgICAgICAgICAgICAgICAgICAgICAgICAgICAgIC AgICAgICAgICAgICAgICAgDQogICAgICAgICAgICAgICAgICAgICAgICAgICAgICAgICAgICAgICAgIC AgICAgICAgICAgICAgICAgICAgICAgICAgICAgICAgICAgICAgICAgICAgICAgICAgICAgICAgICAgDQ ogICAgICAgICAgICAgICAgICAgICAgICAgICAgICAg ICAgICAgICAgICAgICAgICAgICAgICAgICAgICAgICAgICAgICAgICAgICAgICAgICAgICAgICAgICAg ICAgICAgICAgDQogICAgICAgICAgICAgICAgICAgICAgICAgICAgICAgICAgICAgICAgICAgICAgICAg ICAgICAgICAgICAgICAgICAgICAgICAgICAgICAgIC PhLIEyFELiHSYnRXZwNCCaILNjHBp6G7gaFNPiBDSfFM5gRIw3Sb7+WAiHEvZnDTH0dbLybX5GYM8rp0 QkLGzkKJYrr0TeCMn2DT6CVTXeTSyaZT2IMXegpf0MXZWpBJVozUNUy9rlFmYvTJA2LHCtZxsuTD4MDU NcF7owzmQlEHXrPXNKYWmiYWRSOF8AIpWvE4AhwL82 IDINCj4+QGyyqxVqHhnFPoOlISLvm8UfTDj4PB3HGVLpVnyvl5JjXSSzNSJELFudUJ8EMUY7RYYpKYTn Pq0NDAKwE156cdPdJL3WOv1KByXdQR6lga1TNYQpPOTkEcyBIah9HZfmEF2EkBLiGMcGwd3rmiGfvxYD r5KyuxKifJOLTF5iFBbgJIW6mIGoMmcnn0ajxfzkCP OwLKHmPL1vPJ6iCCJhJXU2CdHyXUZDQS0FQNDmTROqgQEiOVEaQKZYQR7MEWgcIQY7ZQRpeqZbyCCwPO ymIZ6DWOTpngNgNROlKDUESKj+Bl2CHI2dd7MdOKj1TaCeVP7ofl8FKRwLPoHqE3M2jYXeE0N9CGixIs 8NEPFaFOEeWnlpBSIMFXlbQR0ARS4lmwH8OX7OwCSl XOEcOWUnvJNgMQq9F60euVPsHGzbHW6KVOL+Marcia+Ts3IJVJfFWXdMGLkLoStMNWFTlCsR3SrY2BXn1Kd G9NuUW49iTzehhDpYLduCI3ILL4rGFAoEEDJOK6OmURtzM5zjzB3UBEyGYRWMpCvK19jvGXwYIOpXBV4 LFUqTf7EQGVqC3IsnrUxkNljaaZgZMPeARCZMF8CBL slrjCmjFQtaFckYU06vZmkNF7SEf4OKeWmBO5lod0QmMRxWq4PLUC4Xl2EMRRyQOHaMYTrPJX2EQDzDq HuVTzjXVYxSMEgHXN3JAYfXGFrQN0WFkPtCEZqBZh3SAFeIRJoGLBuzw7MESDgIEC0PIWaEFJvYKOrZV EzGWijSZOwRSCsJCM6YEHpVEZkKS3JMwOdJQSoXZP2 MSXyDHFqBSZbqz2FKOVdIGLxMMY7AOTzKSOxORKzMSstBFZyGGB9Xqj1GLPbFZTuMI7VWjLaVXYbMQC1 LGCmNUYaUNNpyy9QZPOnQPUnLMx8TXYfCXRkOECrNFvkXUAwLBT0KBI2MMOcRNFuVL3DJwTsLMArTTSk DoudOUCoGCKefv9CWYFiEPJiMnS9FyEzHYIpWAAhGB ycKAYtUGF5Moy5OOGqKDSvTM2YIuXeODAkEQi4DQMmQNRgSOVbyd4WDRKiUFYyCBs9IXEnJUHtRWUyBI tuHFBxAKQ6DyE4XOOhZLVtIA2IMoXiXKGeOBx9KuKwMQTrQDTcou7LPXKpHLFbBWkxJnTjTDDgBCYrQV xsMBQjKCI8QKPeSIGfDJVeNT0TKeVzJGRrMaZ8XEJx RHCgTFLfsn4AVGSxOWCxFWp6POIxFKYxACCfDDdoKBYhXBBdTZZ2QADrHIUyBZ7LKsHkBBDlLdEgMFMv FLJdPJIald7MPSDvWPQwFaD0YkPrJLBfTDQaCBqlADSdEUUzIEWdTMFlDGNeRS3FJeTxQYKeZRN3DPtv RLFfJVBkjc9TOTNrTIN9YDPiHGWqBKZwLVEfPEeaAL ThYXQwKVIfKYWuOPWtSS6PCfLzYEDuZOO2UDKdVOOjPTCwux2MYNUrWJJ5TIi4XHNrQCRjBLSvDOqyKE TmCDI8BKF1NXUdQTVqHS7JVmNqBVKfJRfnPlSgOCVoXIKlnk1BCIRlVGJ8BdN8JlFcNGZaWJTzRWvrMG VkHNG5PxQ4JVXtDENmKU0WLgIcNYBhVZc9RFHpAWEf ZPRpzl4WGWWvKOY1VKFdHbSzKZDpBJUwKIblTWRdHXX9IzZyGAQmHYBfHT4RHoUqILHxVMseLFxiZGLs GUVhsl2YNPCdHWW5ZKw3FNEbNCYuSGQoGJrjGANmZHRvJzC6ICEgOCVfKP6ECbYdHQBbDHPpOMSuDPMi HVZrqb2STSIuCOL0YAC5LSJxBLJqIERdMQs9itZlfW HfWYn5YX7UB6SislRjNVKDMk3Xi745SJJxPGWhOo0GW1wyRj4eFIYxYDFCNc1XKZu1JETfJfQwJFI2Im TxCcBkHiGiWoG5EoXwFPanZiLrSQV+UFr9HTDdGUNxIfO0UrNvAlW8SLGeCAxpYZHtRtUnKsTnWr7zWZ ANCj4+HFtttSTusIcrPDCICcZkLzx5KFwgSJCXHn9L ID Date Data Source [id number] 01/31/2020 08:52:00 AM EDT [facility] ([facility]) Name Value Range Interpretation Code Description Data Sherron rce(s) Supporting Document(s) Thyroid Stimulating Hormone 0.573 uIU/ML 0.358-3.740 Norm al (applies to non- numeric results) [facility] ([facility]) Free T4 1.20 ng/dL 0.76-1.46 Normal (applies to non-numeric resul ts) [facility]) ID Date Data Source [id number] 01/31/2020 08:52:00 AM EDT [facility] ([facility]) Name Value Range Interpretation Code Description Data Sherron rce(s) Supporting Document(s) Calcidiol [Mass/volume] in Serum or Plasma 46.8 ng/mL 30.0- 100.0 Normal (applies to non-numeric results) [facility] ([facility]) ID Date Data Source [id number] 01/31/2020 08:52:00 AM EDT [facility] ([facility]) Name Value Range Interpretation Code Description Data Sherron rce(s) Supporting Document(s) Hemoglobin A1c 6.7 % Normal (applies to non-numeric r esults) [facility]) REFERENCE RANGES: 4.5-5.6% NORMAL 5.7-6.4% SUGGESTS IMPAIRED GLUCOSE META BOLISM >= 6.5% ABNORMAL Estimated Average Glucose 146 mg/dL 60-110 Above high normal [facility]) ID Date Data Source [id number] 01/31/2020 08:52:00 AM EDT [facility] ([facility]) Name Value Range Interpretation Code Description Data Sherron rce(s) Supporting Document(s) Glucose, Fasting 104 mg/dL 70-100 Above high normal [facility]) Blood Urea Nitrogen 16 mg/dL 7-18 Normal (applies to non-nume patricia results) [facility]) Glomerular Filtration Rate Laboratory test result Normal (applies to non- numeric results) [facility] ([facility]) <content>Units are mL/min/1.73 m2</content>
<content></content>
<content>Chronic Kidney Disease Staging per NKF:</content>
<content></content>
<content>Stage I & II GFR >=60 Normal to Mildly Decreased</content>
<content>Stage III GFR 30- 59 Moderately Decreased</content>
<content>Stage IV GFR 15-29 Severely Decreased</content>
<content>Stage V GFR <15 Very Little GFR Left</content>
<content>ESRD GFR <15 on PLUMBING AND HEATING MECHANIC</content>
<content></content> Creatinine For GFR 0.63 mg/dL 0.55-1.30 Normal (applies to non -numeric results) [facility] ([facility]) Sodium Level 139 meq/L 136-145 Normal (applies to non-numeric res ults) [facility] ([facility]) Chloride Level 107 meq/L 98-107 Normal (applies to non-numeric r esults) [facility] Potassium Serum 5.0 meq/L 3.5-5.1 Normal (applies to non-numeric results) [facility] Carbon Dioxide Level 28 meq/L 21-32 Normal (applies to non-num davonte results) [facility] ([facility]) Calcium Level 9.1 mg/dL 8.8-10.2 Normal (applies to non-numeric re sults) [facility] ([facility]) Anion Gap 4 meq/L 8-16 Below low normal [facility] ( [facility]) Ast/Sgot 22 U/L 7-37 Normal (applies to non-numeric resul ts) [facility] ([facility]) Alt/SGPT 29 U/L 12-78 Normal (applies to non-numeric resul ts) [facility] ([facility]) Alkaline Phosphatase 44 U/L 45-117 Below low normal [facility] ([facility]) Bilirubin,Total 0.6 mg/dL 0.2-1.0 Normal (applies to non-numeric results) [facility] ([facility]) Total Protein 6.5 GM/DL 6.4-8.2 Normal (applies to non-numeric re sults) [facility] ([facility]) Albumin/Globulin Ratio 1.3 1.2-2.2 Normal (applies to non-n umeric results) [facility] ([facility]) Albumin 3.7 GM/DL 3.2-5.2 Normal (applies to non-numeric resul ts) [facility] ([facility]) ID Date Data Source [id number] 10/30/2019 10:46:[address] [facility] Name Value Range Interpretation Code Description Data Sherron rce(s) Supporting Document(s) Progress Note [facility] CRBZGv6gWgNGWtAv08/NMHozWEIne8IiKQpmYDg2JCduHZGuY2QhDVS7bS6fEAU1ZKuQRuFiXwUhMvW0 lbm [file] AgICAgICAgICAgICAgICAgICAgICAgICAgICAgICAgICAgICAgICAgICAgICAgICAgICAgICAgICAgIC NmNAYmHVPvOIFyTYGpSAAkLMTvVYUeSZHcWG4AAPQbFULoJORrAESkGVSgDJJlVWPlNGVnHIFnHEIeUK AgICAgICAgICAgICAgICAgICAgICAgICAgICAgICAg CDIzAMQcWIAhRFGxLBVeNQOhQQNpPSEmQVVcEPUsLQLgGFMcFO0YBSIqSCGqOJRcKMVdCIQqVJOaQNPd ICAgICAgICAgICAgICAgICAgICAgICAgICAgICAgICAgICAgICAgICAgICAgICAgICAgICAgICAgICAg NDWvCORtHDArKDYtBPDsKSDeVJ5KJVLsWWDiRQBfOG AgICAgICAgICAgICAgICAgICAgICAgICAgICAgICAgICAgICAgICAgICAgICAgICAgICAgICAgICAgIC IlCMGmDWGhZLPgPAUuIXGxHNOcCBCkKUGeRDSmXY2WFOGhVHTfYRJoDKHjSXAwDWJnVZDgGLIgDDCnCU AgICAgICAgICAgICAgICAgICAgICAgICAgICAgICAg EBQgWVQoMIVaROBcBKFaNQMaLWYiVOBvLFYmDRFmQVMvJKMsYAMtUE9IEQXwZOBpURYeXYMzFRXzPNJg ICAgICAgICAgICAgICAgICAgICAgICAgICAgICAgICAgICAgICAgICAgICAgICAgICAgICAgICAgICAg OFUlPUXqDSTuTTJmYNIyGHLlATHfWN0ZRLVzDXZlMX AgICAgICAgICAgICAgICAgICAgICAgICAgICAgICAgICAgICAgICAgICAgICAgICAgICAgICAgICAgIC DoSHIzPHIgCIUdHJJiDJXdZTKpVDMwSYAzIHJvXWNkFB7PTGZqFGCsFPXgBGWiCGEgXITlKKGyXSZqAI AgICAgICAgICAgICAgICAgICAgICAgICAgICAgICAg QTFoALHuWKFhKVVjMMDbDTFaJAWrUDLbEGIcTFZmTYHpNSTxZFKmPKPdAJ9DMLUtJPOgWNTkBYGsZINk ICAgICAgICAgICAgICAgICAgICAgICAgICAgICAgICAgICAgICAgICAgICAgICAgICAgICAgICAgICAg WVMvVMKqUQIwBIIhJNChZIZxAPDbEHMrCD2RMBWbLG AgICAgICAgICAgICAgICAgICAgICAgICAgICAgICAgICAgICAgICAgICAgICAgICAgICAgICAgICAgIC GqCFBxCTHkUAKxIYPeGYLrBAYoQQJyARAbUKAbDOQlNDDkTW1UGW33eHOsi6D9NAGvXB5cjxv/Pg0KDQ kadkBaiPNgMQ4MYwUyUF6hrj3SBiStZH6cgk1FCAsF FqPgS0H5aKMgAMUbESYRWwYzL90vPRzyBs24BIdcCRZoOfRsFEs7Xn9ITqSgB5kaDLChHmL5HVNiNyYl SFeaOE6Nl0DmeXLzNQt+Jx2NGY5lm7AxSAgrBRVuBK9ytx8SCAwBCzWoW3MdubO3HZLuOZByJg6NRZJz TMXmqLCeTFBeCNMQPtCvH5TyjC67DWAYAu7+DQplbm LsUbiIGqReRLFbi5OgISb2CL4LSFMpIIe5bOBmQVNbR1Myf7VxFz58UQKiTvqrXmCvzmUcnV6wNrRTpA OkFN4VZWY6DUQgZz0lCOGhOTHpHhU1JQRBTR8CIYZySITjuHGoAJSiWJLPLW5LHYgaGZK0XQSpvtRffO OhKQcjPU6HPPExsaZcZJufYPIXSPe+Wb8TNT3qf2Or BGwsTTTqJB6zsq8ZWXuQRwKbO8S4sYSpS7W5EAxuIy4QOSWcYATdTYukUIQMIEjxVQ5LTW3sdqG6II6R mNUrWNQaMGArxXBwUFv6Q39qgUImEZjeWV0HXOM+Marcia+Nv6UZAGqIPDsDVBcIiWkPHAEJoKmK8ZgX5AW g6UhC3OjHJ76xGubvlWaVXinGA5MDW8fOKYvRXLJVL 5QjWHbwW0ypwBuXMLuZCPRCqFhZ89tfOThZYMyXLP1VNEbHx4HQIPoI6HnzjZatXkjtrShNUYwLOQPEL 6TXLnqddDyuCUpaAjdFK41bVnfAU7JEx9TLbVwLK2soi4MdMSxYr4NVWVpRj0FXJSpJOQdWUXxATC0RU EnMbYxERneFJVdOEImAKD2EICfTBIbMJ8YWjHyFVFs OGy6SwYvZIZcVTQwua2PYTZyCPQeTMU1BwPiGYJmEQAaPFdiJQBsVKOlAYE1DOSkVWExCZ2PYjTySEIb NZZ3WOAcDFCiUBYpcg5KAUXkYNNtOoieFSYmIKOtHDLiNLfwZTWeMXG4GUChULZbRISnSE4MPhKhFOHi UGTjQDyaAAVjYBPvca7PXJGtSHWkTLCvBLBaEBPnHB UkYOtyBONyJYV6LMn4YRHePPCyNB7WArLpRRInIDJxZWbwKAYnWMQkqn4CAEKtPKZqCuF1VqZoNAVnJY MbHHioZHLlQNB1LQJbYLFdVAGqJK2WRsCaTBBrGAufMAlnDIWbTNXvwz5FAYFyRQDhSIB4DtYwOLMbMY PjYGucJKZgNMV9PeG0HPMjANWqKD9CWsIzWISuKHn5 NLSyWRUgJLSstu3HPSDwOXYmMJS5AnQzMKJcBJLuGCptFUZwCLVzMdxiDCTaLFUfIS1LUaExUBGnZoH4 ApJsQMYvKIGbul3EVUBnCZGxDHebKKUmGPGkZJKrURw8rnIhyWDyNFt4AB6EY0SryyRfEvDTCm0Fu168 EHPaRVDhSv0EK2ozOy3rYGMhONTVXw2HFGa4VtIdWE NfYNXdIMVsOBJmGZBlQ1MhJPSxEPQzUzj8FnI+MGiqWZKsYtW4LIHvWxLaKAUvBAGoODPjIzX6NBHjTr YpLL0eKPXAAe3+IPqeoENycLhyOZBNSlUiAEBlCRlsKONSMd0L ID Date Data Source [id number] 10/19/2019 07:49:[address] [facility] XR HIP- UNILAT, 2-3 VIEWS [id number] RE SULTInterpreted by:Valeria Rodríguez and right hip:INDICATION: Right hip replacementFindings: Frontal [...] rce(s) Supporting Document(s) ID Date Data Source [id number] 10/09/2019 09:51:[address] [facility] Name Value Range Interpretation Code Description Data Sherron rce(s) Supporting Document(s) Progress Note [facility] KKEXEe1fOdRUCsOc77/ORVhnBJQtg3XsVWvqYOx2JGgePIVeO2PbMYQ2uZ6dVDE1TEeOQfFiPyHzYfN9 lbm [file] ICAgICAgICAgICAgICAgICAgICAgICAgICAgICAgICAgICAgICAgICAgICAgICAgICAgICAgICAgICAg ICAgICAgICAgICAgICAgDQogICAgICAgICAgICAgICAgICAgICAgICAgICAgICAgICAgICAgICAgICAg ICAgICAgICAgICAgICAgICAgICAgICAgICAgICAgIC AgICAgICAgICAgICAgICAgICAgICAgICAgDQogICAgICAgICAgICAgICAgICAgICAgICAgICAgICAgIC AgICAgICAgICAgICAgICAgICAgICAgICAgICAgICAgICAgICAgICAgICAgICAgICAgICAgICAgICAgIC AgICAgICAgDQogICAgICAgICAgICAgICAgICAgICAg ICAgICAgICAgICAgICAgICAgICAgICAgICAgICAgICAgICAgICAgICAgICAgICAgICAgICAgICAgICAg ICAgICAgICAgICAgICAgICAgDQogICAgICAgICAgICAgICAgICAgICAgICAgICAgICAgICAgICAgICAg ICAgICAgICAgICAgICAgICAgICAgICAgICAgICAgIC AgICAgICAgICAgICAgICAgICAgICAgICAgICAgDQogICAgICAgICAgICAgICAgICAgICAgICAgICAgIC AgICAgICAgICAgICAgICAgICAgICAgICAgICAgICAgICAgICAgICAgICAgICAgICAgICAgICAgICAgIC AgICAgICAgICAgDQogICAgICAgICAgICAgICAgICAg ICAgICAgICAgICAgICAgICAgICAgICAgICAgICAgICAgICAgICAgICAgICAgICAgICAgICAgICAgICAg ICAgICAgICAgICAgICAgICAgICAgDQogICAgICAgICAgICAgICAgICAgICAgICAgICAgICAgICAgICAg ICAgICAgICAgICAgICAgICAgICAgICAgICAgICAgIC AgICAgICAgICAgICAgICAgICAgICAgICAgICAgICAgDQogICAgICAgICAgICAgICAgICAgICAgICAgIC AgICAgICAgICAgICAgICAgICAgICAgICAgICAgICAgICAgICAgICAgICAgICAgICAgICAgICAgICAgIC AgICAgICAgICAgICAgDQogICAgICAgICAgICAgICAg ICAgICAgICAgICAgICAgICAgICAgICAgICAgICAgICAgICAgICAgICAgICAgICAgICAgICAgICAgICAg TYZyIXGlTFNiARGsNTIvPAAuXNQmWPLpAHp9V0dvQPHbJQMvIO4tNZh8Mw8+EUxRKbGrWZR6xgVymA8L YN2du4BpZSsyTEVnp1JpOKm2BL9OQBWjYAjgNL0CCL jzfq3KBEZbBZIamCSJf8igNuKcCMU6QWQvPtshYV0STJEgA4exwhAcZHCbFDLMOX1BXeVlB6QfeD03KX ENCj4+UKifczJfIdkQExD5USGfn6DiIUg2MN5BOVJlZxsyr0TqQlFzYRHEOTdzSS0RQGI0BEFvDSTyGj 3ZNQXdS241aoTzYA9AMh2OTsNlRS5ykv0QJtVkXAQg JmhSZlg0ZSbmJW0IrZXwQNyFtk2zeqIspdGHf2HmeyLxzQXFGAY9jQT4ITYgCaY1KCNfVW5OPRW6IFZx YZ3vLVDxDDDaIrS9IWARRT5IUGRdEQAieTBmMADvMFXFTH7BHXonPNH5YCOqybWgwLEaRLxoLS1EHADm bnQgMTkgMCBSDQo+Lh4BLO6ra1CaGEquRIAlBR6gwe 3RTZjOByExB0J0tWPmR6I3TKvrZr2BHKRnPQTcLUlxIYPTWFjkQY0OWI7zjiN8CL5AvDPeHUXgYVXxvA VjIUk4X06njKPpODxlGU8AFBV+Marcia+Uw0MXNWrZXMcPQZqKgMcSJAVQaKbO2XkJ5DKe0LjL6TlHW67sY vqybJhGItgQO2KEP8wHWTkPXOBFN3QkVYwwL3syvWg WOCkLNAOWgQeW70jvCIvSGChFTO3PTDrHp3PSVOfN7RbmzIwoYhkwvSjXOUmUDURJB1NTQzjaqXmuDXb oSpdHE14hZnsQJ8CJp4RWfXhAM9pza7QnRNxBb3PVYQtJj9MXJNbYVOsZLKcAJL6MCLfJnIvAKkuGDOl WIUbBVV7GNCaDBBxYG5ITyHpMINvUhS4CoBaYRShHR Giaq3EOIYeZNPlBlK3TTBcCVGdTLMyYFpeQWCyCNLaXPN8AZUpAPOnGZ7JUfFzVASmXBDcHlOxKIKcZF Wptn7HLLOwGHJgKfS6JNGbSXRrLVLrWAkqVCEqYNR2CFU3LUHhEOVwFZ1HWbLcFKHgNAV9ZiHfPUKySZ Auew2NMEKgOXJbOFevUvQbYADjFBVnMNjbUQDuXKN3 IAfyVZJyIMQbAI3BShSyDQLfNHNeMtMyDFZbBUPdhs8RZQWpOITmGvL6SKBjPZEdAWXhQUfhTILlEHH2 YOU6PAAsSGCaLH3NNrWkGQKbFfAjOqJbUVRlKIPzci8LIYOwPHBmCNQ6SGAvEFPaPUVdWAgkYRImRWPv JlH6QHKcUPHoQS9WFkJzBTHlDvR3JEOaOTDcIZWfwo 2AIKTdZQZdCPVdAECnKGQcAUTtZGgsFXBxDHXnXbV1HBYrRVDlBY2VThOnNQMdTpH8MWhlDOTfCSCnld 7MTWUlDPKcCbj3QGZkXFDmMPBwVAw3zkZnvNLvQGu3ZG8FN7BrgvYwBqGMWz3Wt144MBSwQQXhPl1AZ3 slVp6aCJDsNJPVGe1CIDc0AsjmKkmbYiZyFnb5TQKo Isd7GGFrSdP6VkH6YXHdJEX+RDawJWChC9SbICKiWHxtA8VkTEbpYNEdXmlfIcdwKqMmKN2nUSHGXj8+ JJzxkBHaeVwbWQPRXdDwHRThLQyhREHFKu7Y ID Date Data Source [id number] 09/20/2019 05:18:19 PM [facility] XR HIP- UNILAT, 2-3 VIEWS [id number] RE SULTInterpreted by:Tyshawn Graham MDTri[facility] unilateral, 2-3 viewsINDICATION: Right hip replacementFINDINGS: Frontal [...] rce(s) Supporting Document(s) ID Date Data Source [id number] 09/07/2019 10:45:[address] [facility] Name Value Range Interpretation Code Description Data Sherron rce(s) Supporting Document(s) Discharge Summary [facility] XSTDJv7zJeEHQwVt04/YAAnfYRLcz9XkMOmpYQu6VRxqNWJlU4UwVLJ2pQ5jIXC9IPoYKgSnIuGiGEEd lbm UkMjdIFxVyANWoZmiGToTbGAxiRlbudZNkOZ6IxSN2LRBmV68pUBGiDAUvK7XpDUS2ZfM+Ua0DUSIdaF JjJP4DKdcM5Noen+D3CF3p5Y9AyMAAQBtkQYk22V0abrIb5DRgq+2MxJOqINOLf69mH2vkb61ltN3qSe /XWA3Zrsu9xK5Aug/khOaWy3sp26/sxFWWZbHs3/qn 3fg9bwO//8qsjteemuj2nWiXI4WaGR8dKCzE7cqVtP0F08elTZz4jG4A57de9WxMhyv4bNv16a/myePT Z1jYe4ApZhBec02ZTlXCybP831+c2FPcLXmdv3xmrphk+Gb8Q7uIwXBpmUddsRpsDBajacBF/Ugu9Fvn sMZvYLqhD1ye3MwTsjy7Dzl2LanuZc7VoW6a3B/yFi AZ2Ke2DfRu1oZzKuOmwul1k4SamRhtC6jBg3yyrdK16VY2bP+OV+B1F3kAakRSyydzO7rMf1AUZYeZ9t qiLXvEywMXkUNUayakp1H+jRnQN4Tzgj8t/tj8mBSkldJ6MUj0ADAnVwXzu/L6wxD3L+rT9np0JzUnDz j/4nQqsf0c5FnrCr7zfLvN5REwLtGuq/sf7FcSqtXS m83xMCAhsYf2PS7zcmAF/kkEI4a5gtz4wP7TB/rp9ejYrfc5g5ApaMtu+0nLPnYc/9jzHZWu/5fzWWxy 7byjMkBMmK92OnxxC2yybr4p7ZNebh7gEZ4nd9uqFablhKkgHhtXgzAdffx5sRpRvmVbyLLiTOAkqiwu pBUDh57AZREsxHVXPZ9gWAVFzM08nRghzvR+77IcSs 7tPOdGScz+kdGU49vtwRBJpNqkZhWyLDwZkkoe5QyR0KVgMUnKPADCapLhKmRE/JuIUSyXaCV68oyBx7 tjyiteIcrqw87ozmQkN1YwcbQhCS4qIOENrWaqN+aTeP8E8HAbUX/hzhjV2GaVEfmXi2Raq8bQQmr4DW NO1Wj9LdYNWm7GEmkM7uga6Al8+Jj+wOyjSkLImuT [file] GOsigYNKNPOZQ5KM7rFXJh3RuZr/W/Ltkq3nmrkhBJaZd5LI/dLNv+7z/LuAhO50t54k+6r7exUsm/PHOTO EQUIPMENT TECHNICIAN qcD5C9j7Qgj1+9+6N02Q8yrZkEO96u4w1yEr73vyWt4NSt/8fDg+gdS6qFX//p0A71fkho6f4fg2k0n9 wZs5wve3q2+uY/tK23l8Q4/PPPsy+++tJOPsvrvNpO up7qAR0J/zEmxwHuSIwkSNd4lT7fvYXx72vqs1iH2Y21jKe61mCyh9s9pv1FYb1xk+0cEx14y+9uVtaz fBZyR0p2yhc0A5T5E/u+86xFvpwXb+ddb/MhCfr8WKgp01GMjKLd1PbkNtbUVxh0VCcq4CIIxMH2qAeL fFXn7l/Ffj12XRryC3V5oZjfeO/YI88nqsoLg+X26Z pcv7Uqtrk6pa0jX7or9zBb/vG83wXth1+A6ryK5k2IyHd/+5ECvn1p9E+fbh/KH6vRcBiO2g/zVdOsD+ 00+W6o9krvqSu33b0TviyDx1Q/wbrDWJuca4G++Hsy9bGe6qRk1HT6xEr221tJyhlD0zy+s/V7YRzpPQ Gtt61S6gXw+rXE221ln4j88J4n9Wp31zAqa9bM5sHn [file] DQogICAgICAgICAgICAgICAgICAgICAgICAgICAgICAgICAgICAgICAgICAgICAgICAgICAgICAgICAg ICAgICAgICAgICAgICAgICAgICAgICAgICAgICAgIC AgICAgICAgICAgDQogICAgICAgICAgICAgICAgICAgICAgICAgICAgICAgICAgICAgICAgICAgICAgIC AgICAgICAgICAgICAgICAgICAgICAgICAgICAgICAgICAgICAgICAgICAgICAgICAgICAgDQogICAgIC AgICAgICAgICAgICAgICAgICAgICAgICAgICAgICAg ICAgICAgICAgICAgICAgICAgICAgICAgICAgICAgICAgICAgICAgICAgICAgICAgICAgICAgICAgICAg ICAgDQogICAgICAgICAgICAgICAgICAgICAgICAgICAgICAgICAgICAgICAgICAgICAgICAgICAgICAg ICAgICAgICAgICAgICAgICAgICAgICAgICAgICAgIC AgICAgICAgICAgICAgDQogICAgICAgICAgICAgICAgICAgICAgICAgICAgICAgICAgICAgICAgICAgIC AgICAgICAgICAgICAgICAgICAgICAgICAgICAgICAgICAgICAgICAgICAgICAgICAgICAgICAgDQogIC AgICAgICAgICAgICAgICAgICAgICAgICAgICAgICAg ICAgICAgICAgICAgICAgICAgICAgICAgICAgICAgICAgICAgICAgICAgICAgICAgICAgICAgICAgICAg ICAgICAgDQogICAgICAgICAgICAgICAgICAgICAgICAgICAgICAgICAgICAgICAgICAgICAgICAgICAg ICAgICAgICAgICAgICAgICAgICAgICAgICAgICAgIC AgICAgICAgICAgICAgICAgDQogICAgICAgICAgICAgICAgICAgICAgICAgICAgICAgICAgICAgICAgIC AgICAgICAgICAgICAgICAgICAgICAgICAgICAgICAgICAgICAgICAgICAgICAgICAgICAgICAgICAgDQ ogICAgICAgICAgICAgICAgICAgICAgICAgICAgICAg ICAgICAgICAgICAgICAgICAgICAgICAgICAgICAgICAgICAgICAgICAgICAgICAgICAgICAgICAgICAg ICAgICAgICAgDQogICAgICAgICAgICAgICAgICAgICAgICAgICAgICAgICAgICAgICAgICAgICAgICAg ICAgICAgICAgICAgICAgICAgICAgICAgICAgICAgIC DfFKZtHUWcYZFjEVRlUCIdGMTbWZz0C9lkGHFfJWYgCB9aJEv9Jf3+GYzNGzYmZWB7hqImjC2EZF4zl7 FaQOmsXTZok9OuZQu1IO8OPPOkAHhhSR8DWZcqse0JMODfRWDxpZZIo9kvKuPoUJN1YPWpZgnpVL0FOB FgK5rrgoKrYCYwUFOWBDqtVWSSEZbxMRMBMOXoTRDe HhOjIySfQDJuGS3YSILxT620xlXpLU8OJz1CWgNdWN8kpg5CXcSvZQZqCxuYWij9BCveNG8RcHIeqPDu ZHMqUBMNJbSyX1swg6ZxEoYbKRCULLrpSE6Kc8QlzIVkUUr+Pv1WCA5xt5UeOGagUUKcGT2prq0TTQzL LsBtX2PksIeuHIWcl7IhKSIcWVIOwK9qFDM9UKZ6IC F3INNmWT8mYELLEYtmsaLafE2mRWdjRZAhEWAeQL4oKW5aGXNkHYXrIeWoHWPHIF9TYVSfVUFfkMToJK FpJUYEFM5UBItdUHS0GWCedqKtoCCbIPtnGP7UOWFvkaBlRpHuQAOIYLn+Ee1EAR7qa5VbFRofBuOmBG 9mzl6GLIdMOjEcR7W6pAAdZ4C1ANqxAe4GPLFzYDXz AhfjJRJUWSagJU4AMC9ouyU8QV5TsQFzKVAiCJGquUOvMCp6G76mgVQoBLhxLB0BSUF+Marcia+Vx5UGARq TBSvCPUjSrKpJSUFNhHnI1LtT6YZj1CzX4HtIQ08bMsqmsNjEDugUC4JAP6xNTAqXKZRLU4QaPVxaQ4f sbApSPWoVMMSDzFgZ93guWKhBMExHDA6NHFzJl4QQA CvU3MmhdIviRbqaxWnYYGuRDLZTZ3KZZzbhqHgsKBnvSvyNL45uNrmSB6PUz5PIjPoAJ4jnl0YiCPvFs 7JGVZsRc6KTNSsQMJwRVDrZEK7AJQmPkFaLYkfEREiEFOiCTP6IGXrPSRjMB6ISlEpOTBgEpZlZJSzDV AhMJVozq2OFEXxIOHtUen5QSCvQGRpMSDiTUqeLRKi CLKiSZA3ACWrZURsUR0MDoYyJZSnQEN3YJZhWADdRVGrar1NJMDqCHGhOtmvZDOvWWKuPOJsAYlfJKGs VHG3XuS6CQNdJMYzHV9ZPrJyAQPlFBB6QQmlFFVaHLProi5CYZTyRQRlOJZxAWIkFIPzCKFtUWdhTHMg JXCxSuY6UUEnLDXjOP0SBaBtKVHvECR9AjXvBKDfTS Kvyy3JVQMmGAXkSSHkSxBtMOHjIIIvCJxkEQJgTXX1DDB1TFSaTMTlZK2WDlShDXHfVPTsHiBfNMVpVL Rpyi3LSCGjLLQpIhX3JWNrYYIuJIZmXLqyOWStVSL2Eds0SPLfMQZkGO7WHvDiJMRfESu4RhSjRDQsQY Cypn1OPDTaGFTlBIPtTAXlYUBhMXBsEOqkEBUcPTQ4 DtVkBCArIPLkPP8TKvEsSTUtHCh1BKzfSGSyVHAwbx7SYXEfEMInNNl1CXHqWQIrAWYdOSjxKGSrHIUj CYp5LJBeMLRoLB1OMyKoRGCdRdMjOTwjTDRkRWUdfz7HTKOxSNHnJEMvRDTnKUYtFQIsMVgdSHCuDJH1 FKMjGAEbFCTiAR6YUoAlSQDsOkN3SSXpVTRdKSMjzi 3RHGUkSFLsFMt7LPTfTMDcOAFaPNqjPSDrJQP1HXGdPJFoZOQlXA6PLjGhIEGwZdQ3DNrpEHPsKQRbps 0GPDNwCQNdLzsuWtUlFMVvUEQwCRheQYOxAUI0ZCojNGQfVSQpZJ1PQgMeVQWfEcplOHPhACCrTZJjuk 1EkQOcpIevbc1YIRsDHd9HsPadRTZiLByqRg4ezEEe NqBbETSNGt9ItuCmAAQfZRHKHXduHJFnAWJ2S1OhVnBpXoXxO2RlWZQbF4GsEAKrXMPaFLifFqE2EzC9 AeS0LoIeIKH0YaSuCsAtVhK1WfQiQKChUoB6SFWvVTG+US6xXTh+Lh1Qb8OxofF5tcKmVRjwQXY2Rh1E TNHUP9DNHt== ID Date Data Source [id number] 09/04/2019 03:29:00 PM EST [facility] ([facility] Name Value Range Interpretation Code Description Data Sherron rce(s) Supporting Document(s) EKG Laboratory test result [facility] ([facility]) ID Date Data Source [id number] 08/30/2019 11:52:47 AM [facility] Value Range Interpretation Code Description Data Sherron rce(s) Supporting Document(s) Glucose [Mass/volume] in Capillary blood by Glucometer 128 mg/dL 70- 140 [facility] ID Date Data Source [id number] 08/30/2019 08:09:23 AM [facility] Name Value Range Interpretation Code Description Data Sherron rce(s) Supporting Document(s) Glucose [Mass/volume] in Capillary blood by Glucometer 130 mg/dL 70- 140 [facility] ID Date Data Source [id number] 08/30/2019 05:36:13 AM [facility] Name Value Range Interpretation Code Description Data Sherron rce(s) Supporting Document(s) Leukocytes [#/volume] in Blood by Automated count 7.1 10*3/uL 4-10 [facility] Erythrocytes [#/volume] in Blood by Automated count 2.77 10*6/uL 4.1- 5.3 L [facility] Hemoglobin [Mass/volume] in Blood 8.8 g/dL 11.5-15.5 [facility] Hematocrit [Volume Fraction] of Blood by Automated count 26.2 % 3 6-45 L [facility] Erythrocyte mean corpuscular volume [Entitic volume] by Auto mated count 94.8 fL 80-96 [facility] Erythrocyte mean corpuscular hemoglobin [Entitic mass] by Automated count 31.9 pg 27-33 [facility] Erythrocyte mean corpuscular hemoglobin concentration [Mass/volume] by Automated count 33.6 g/[facility]0-[facility] width [Ratio] by Automated count 14.3 % 11.5-14.5 [facility] Platelets [#/volume] in Blood by Automated count 188 10*3/uL 150-400 [facility] ID Date Data Source [id number] 08/29/2019 09:44:35 PM [facility] Value Range Interpretation Code Description Data Sherron rce(s) Supporting Document(s) Glucose [Mass/volume] in Capillary blood by Glucometer 139 mg/dL 70- 140 [facility] ID Date Data Source [id number] 08/29/2019 04:49:00 PM [facility] Value Range Interpretation Code Description Data Sherron rce(s) Supporting Document(s) Glucose [Mass/volume] in Capillary blood by Glucometer 149 mg/dL 70- 140 H [facility] ID Date Data Source [id number] 08/29/2019 12:46:45 PM [facility] Value Range Interpretation Code Description Data Sherron rce(s) Supporting Document(s) Glucose [Mass/volume] in Capillary blood by Glucometer 128 mg/dL 70- 140 [facility] ID Date Data Source [id number] 08/29/2019 08:47:46 AM [facility] Value Range Interpretation Code Description Data Sherron rce(s) Supporting Document(s) Glucose [Mass/volume] in Capillary blood by Glucometer 110 mg/dL 70- 140 [facility] ID Date Data Source [id number] 08/29/2019 09:21:05 AM [facility] Name Value Range Interpretation Code Description Data Sherron rce(s) Supporting Document(s) Hepatitis C virus Ab [Presence] in Serum or Plasma by Immuno assay Non Reactive [facility] No serological evidence of active infect ion. If recent exposure is suspected, test for HCV RNA. ID Date Data Source [id number] 08/29/2019 05:54:02 AM [facility] Name Value Range Interpretation Code Description Data Sherron rce(s) Supporting Document(s) Leukocytes [#/volume] in Blood by Automated count 7.2 10*3/uL 4-10 [facility] Erythrocytes [#/volume] in Blood by Automated count 3.01 10*6/uL 4.1- 5.3 L [facility] Hemoglobin [Mass/volume] in Blood 9.8 g/dL 11.5-15.5 L [facility] Hematocrit [Volume Fraction] of Blood by Automated count 28.2 % 3 6-45 L [facility] Erythrocyte mean corpuscular volume [Entitic volume] by Auto mated count 93.6 fL 80-96 [facility] Erythrocyte mean corpuscular hemoglobin [Entitic mass] by Automated count 32.6 pg 27-33 [facility] Erythrocyte mean corpuscular hemoglobin concentration [Mass/volume] by Automated count 34.8 g/dL 32.0-[facility] width [Ratio] by Automated count 14.6 % 11.5-14.5 H [facility] Platelets [#/volume] in Blood by Automated count 210 10*3/uL 150-400 [facility] ID Date Data Source [id number] 08/29/2019 06:09:35 AM [facility] Name Value Range Interpretation Code Description Data Sherron rce(s) Supporting Document(s) Bicarbonate [Moles/volume] in Serum 23 mmol/L 22-29 [facility] Chloride [Moles/volume] in Serum or Plasma 108 mmol/L 98-107 H [facility] Creatinine [Mass/volume] in Serum or Plasma 0.45 mg/dL 0.50-0.90 L [facility] Glucose [Mass/volume] in Serum or Plasma 137 mg/dL 70-140 [facility] Potassium [Moles/volume] in Serum or Plasma 3.9 mmol/L 3.4-5.1 [facility] Sodium [Moles/volume] in Serum or Plasma 138 mmol/L 136-145 [facility] Urea nitrogen [Mass/volume] in Serum or Plasma 9 mg/dL 8-23 [facility] Anion gap 3 in Serum or Plasma 7 mmol/L 8-15 L [facility] Osmolality of Serum or Plasma by calculation 287 mosm/kg 275-300 [facility] Creatinine/Urea nitrogen [Mass Ratio] in Serum or Plasma 20 [facility] Calcium [Mass/volume] in Serum or Plasma 8.4 mg/dL 8.8-10.2 L [facility] Glomerular filtration rate/1.73 sq M pre dicted among non-blacks [Volume Rate/Area] in Serum or Plasma by Creatinine-based formula (MDRD) >6 0 [facility] Glomerular filtration rate/1.73 sq M pre dicted among blacks [Volume Rate/Area] in Serum or Plasma by Creatinine-based formula (MDRD) >60 [facility] ID Date Data Source [id number] 08/28/2019 09:12:12 PM [facility] Name Value Range Interpretation Code Description Data Sherron rce(s) Supporting Document(s) Glucose [Mass/volume] in Capillary blood by Glucometer 192 mg/dL 70- 140 H [facility] ID Date Data Source [id number] 08/28/2019 05:02:11 PM [facility] Name Value Range Interpretation Code Description Data Sherron rce(s) Supporting Document(s) Glucose [Mass/volume] in Capillary blood by Glucometer 163 mg/dL 70- 140 H [facility] ID Date Data Source [id number] 08/28/2019 01:51:41 PM [facility] XR PELVIS 1-2 VIEWS [id number] RESULTInt erpreted by:Jw Augustevis, one to 2 views, portable dated 08/28/2019.REASON [...] Date Data Source [id number] 08/28/2019 12:23:58 PM [facility] Name Value Range Interpretation Code Description Data Sherron rce(s) Supporting Document(s) Glucose [Mass/volume] in Capillary blood by Glucometer 159 mg/dL 70- 140 H [facility] ID Date Data Source [id number] 08/28/2019 11:18:33 AM [facility] Name Value Range Interpretation Code Description Data Sherron rce(s) Supporting Document(s) Operative [facility] WWENOl1dSsKCSpQs60/NXHpcJLDpo5LhRQnoTRs4TBveSEVsM8EgUQK6aC0sBTQ0UOsQSvGdGlUwRUAl lbm [file] g9tNRTgxTneadgwIpGvXnCCrIigF/IhdE27L47xwxO4iB6fMnv/k4uwl5oeW8Crv7ap/96m7MICpa+Proof Operator [file] [id number]+KKymePImlJeeKUVJCiM4CeFdTQltILJUAd8F ID Date Data Source [id number] 08/29/2019 09:56:[address] [facility] Surgical Pathology ReportName: KEY SANZ RMRN: [id number] Number: [id number] Date: 08/28/2019 11:10Received Date: 08/28/2019 13:29Physician(s): LORRAINE,BIANKA LORRAINE,EMILSpecimen(s) ReceivedA: Right femoral headClinical HistoryPrimary osteoarthritis of the left hip. DiagnosisBONE, RIGHT HIP, ARTHROPLASTY: DEGENERATIVE JOINT DISEASE. (GROSS ONLY)./pws Jennifer Gleason MD;Resident PathologistElectronically Signed By Matty Sun MD, Attending Pathologist 08/29/201909:56:10Processed at [facility] Pathology Laboratory at [facility], [address] [place] [address]. [facility], [address] [place] [address]. The attending pathologist named above attests that he/she haspersonally reviewed the relevant preparation(s) for the specimen,performed microscopic examination when indicated, and rendered the finaldiagnosis. Unless 'gross-only' is specified, the final diagnosis is basedon a microscopic examination of help desk representative sections of tissue.Gross DescriptionThe specimen is received in formalin labeled with the patient's name"eKy Sanz" and "right femoral head". It consists [...] developed and their performance characteristics determined by [facility] Pathology department. They have not been cleared or approved by the USFood and Drug Administration. The FDA has det ermined that such clearanceor approval is not necessary. Name Value Range Interpretation Code Description Data Sherron rce(s) Supporting Document(s) ID Date Data Source [id number] 08/28/2019 07:37:40 AM [facility] Name Value Range Interpretation Code Description Data Sherron rce(s) Supporting Document(s) History and Physical [facility] CUDXZk5hJjACEsEx16/TUYzaREGdi4LwGPwrUHd9GCrmJDXxS4QzSAP4aN8iMHK6AVgJUxGkMxFvVRMr m [file] ICAgICAgICAgICAgICAgICAgICAgICAgICAgICAgIC AgICAgICAgICAgICAgICAgICANCiAgICAgICAgICAgICAgICAgICAgICAgICAgICAgICAgICAgICAgIC AgICAgICAgICAgICAgICAgICAgICAgICAgICAgICAgICAgICAgICAgICAgICAgICAgICAgICAgICAgIC ANCiAgICAgICAgICAgICAgICAgICAgICAgICAgICAg ICAgICAgICAgICAgICAgICAgICAgICAgICAgICAgICAgICAgICAgICAgICAgICAgICAgICAgICAgICAg ICAgICAgICAgICANCiAgICAgICAgICAgICAgICAgICAgICAgICAgICAgICAgICAgICAgICAgICAgICAg ICAgICAgICAgICAgICAgICAgICAgICAgICAgICAgIC AgICAgICAgICAgICAgICAgICAgICANCiAgICAgICAgICAgICAgICAgICAgICAgICAgICAgICAgICAgIC AgICAgICAgICAgICAgICAgICAgICAgICAgICAgICAgICAgICAgICAgICAgICAgICAgICAgICAgICAgIC AgICANCiAgICAgICAgICAgICAgICAgICAgICAgICAg ICAgICAgICAgICAgICAgICAgICAgICAgICAgICAgICAgICAgICAgICAgICAgICAgICAgICAgICAgICAg ICAgICAgICAgICAgICANCiAgICAgICAgICAgICAgICAgICAgICAgICAgICAgICAgICAgICAgICAgICAg ICAgICAgICAgICAgICAgICAgICAgICAgICAgICAgIC AgICAgICAgICAgICAgICAgICAgICAgICANCiAgICAgICAgICAgICAgICAgICAgICAgICAgICAgICAgIC AgICAgICAgICAgICAgICAgICAgICAgICAgICAgICAgICAgICAgICAgICAgICAgICAgICAgICAgICAgIC AgICAgICANCiAgICAgICAgICAgICAgICAgICAgICAg ICAgICAgICAgICAgICAgICAgICAgICAgICAgICAgICAgICAgICAgICAgICAgICAgICAgICAgICAgICAg ICAgICAgICAgICAgICAgICANCiAgICAgICAgICAgICAgICAgICAgICAgICAgICAgICAgICAgICAgICAg ICAgICAgICAgICAgICAgICAgICAgICAgICAgICAgIC AgICAgICAgICAgICAgICAgICAgICAgICAgICANCjw/eMAkT3helWJiqiJ9S0krDf1URy8CVS4wo9EfBZ PyRLurqiXlFlzULwMdTBAdFjiGOsv5BUejSH6NcCAoS8CxD1JrDBkeIN0HOZSjLZXukTLiMTMuTXUlKn G3AGYsLBhiUJ6OgVEuTPxyXJVePKDjHuZeDKGqUJHs UMUqYPAtBLNUYG1YEhMoO3TtlC11STESGu5+ITszygPwDaoJZvP9VVJwy6EiYAf3NC8PWTWpKsbtl8Ye QvsuCGESMNjjFD6YQTT8ULC9BOGnYc3HKAElM793uwCsJM3FUn6OEcXvJH0rhw9XYnbqVPOwLphZXxp7 OWofKO4HlNBtBBeKXeVsOtdxJL7hsAGLkqHpATKQNX WeaCEkSoJdJqZhMuJkTWr6RcsbQW3vKTizLJ0ZDWN2XSksLBLnOCLcK3yNPpVxYPFxVtTyuPygEL4LQl ZvF0LoyxEkaEZhWWMlMJBJZy2+RLgxrkHlHqzHUgFtAAUvr9VjSPo5FW5IBUOyRYtiQR5DHAEhkU0uWE xkMJ5JOuFiAjIwZZKNVaZeD21aeNPsPWc4T3DyYhRx ZGVkRmlsZXMgPDwvTmFtZXMgWyBdDQogID4+ID4+WQxwYI8YKCwfctFxYMPhOd2DXHYeDINbFK6gQQTt EILjZ8H5mOlpIYFVOfDdK1rivhefDL8wZNPnF197xOzjigTxWRJ9PNElFr3PJUDnMKK8BNVujTDzRhsi LSGWWSskPQ3HfYKuAYB4pV4iEVxmIBCkAIRaG3wKLu TvtAosRN10oGdqmlPzfSGtHBs+Gh7HXV4ue7XvAQu2axVbVHfkTZGoRWqkZIBkWKRqSEKjULC2SWF0BZ QXHpGbBJLpWXTwKUmhIOSeAPDyxf6GNETbIKYwEUi6QnTqJDIrRNHdOSxvMTIjNQU3LJpmVLYjAJGiSC 4FYoDyQSIgRADdRQrsTITcRVDbjw7NKFSsQIDnXyUz CUZbASYdOPQoNMbsIGAxINOeJHLkJGGaAFBxUV3JRhLwNAXnTRNtAlVgARQeIFSwnw2FCSNgSMYbQxJe JtFaWCNbTBCiGUouDVSoJQS6VFHtVAZkOIZkTM6YKhRzSUSuZYuwArslMBYeEFPuuh4FDAGqMOEpMSa4 RRDtKTYrTNQxUZzwLPHhKKHyAJB0CQEpSSQmRP8DAf PhLYOlOLD5COljZWFqUOAydz0KNEMwHXAmUjCkMNVgUOXpVRHqPCnuIAYaCAPgGdj0MUSyDDDxDT9KKp DbAZLfACFgAREnEEYlUILkeg4LYJCfKWLsLKR2NFJgVSXxRQRqYPjyIASaBPL7UeO6BQKeZDMvRT7NDf IjNPBsWkGxNxDpCGRhGSCwkn5TJJZhRBHbCcD9UzGz BNHyXZJqWBygCGYaWZHsDWToCHWcLFWzJE1UBdHsNVZyAlKvQmlsGETkBCVorc8RTREqIZGxSVSqRXMg RACbMGHaDHosXCBfUQN7DhA4GTXrQLTcOT5GHcXqPVYwLkG7EXktVVRxKQHsyg9YVTEoWKRwKKfjGXQc TACdEWAgVWdgGVIjMBE6HODnRKCtNTRhFI0NJqErEY MuDaa9FEjjHOTkOQJozo1BNBXfTYXfAeU8IRVrVYBsLCXaAYyjQXLjRJM6BENgWRAzBVIvYA2KYnEgKB krZFTSAkt4OWmjZ5e0NDInCD0BE7Ltm2NrGjMuDZLEXHmyXV6eahGdFIZxGm5AC9fITmb4YAjpILBkYS PyPAMmWxbgVaIxW4VqGIf8OTQcJ6Q0MN8aKLdgOTL1 VtMxX0VhCWPqZXGnXxI9OPIpXNR3EvNyBgymHiGdCR8QTj8ECpP1ITJ0dQJzNp2CHzjlWMsMHsNtBI1G DQo= ID Date Data Source [id number] 08/28/2019 06:59:[address] [facility] Name Value Range Interpretation Code Description Data Sherron rce(s) Supporting Document(s) Glucose [Mass/volume] in Capillary blood by Glucometer 114 mg/dL 70- 140 [facility] Procedure Social History Code Duration Value Status Description Data Source(s ) Smoking 09/10/2020 12:00:00 AM EST Patient has never smoked co mpleted Patient has never smoked [facility] ([facility]) Alcohol intake 04/03/2020 12:00:00 AM EDT Current drinker of al cohol (finding) completed Current drinker of alcohol (finding) [facility] Tobacco use and exposure 04/03/2020 12:00:00 AM EDT Never used co mpleted Never used [facility] Smoking 04/03/2020 12:00:00 AM EDT Never smoker completed Never s [facility] Alcohol intake 10/17/2019 12:00:00 AM EST Current drinker of al cohol (finding) completed Current drinker of alcohol (finding) [facility] Smoking 10/17/2019 12:00:00 AM EST Never smoker completed Never s [facility] Alcohol intake 09/19/2019 12:00:00 AM EST Current drinker of al cohol (finding) completed Current drinker of alcohol (finding) [facility] Smoking 09/19/2019 12:00:00 AM EST Never smoker completed Never s [facility] Alcohol intake 08/29/2019 12:00:00 AM EST Current drinker of al cohol (finding) completed Current drinker of alcohol (finding) [facility] Smoking 08/29/2019 12:00:00 AM EST Never smoker completed Never s [facility] Vital Signs ID Date Data Source [id number] Name Value Range Interpretation Code Description Data Source(s) [place] body weight 135 [lb_av] 135 [lb_av] [facility] ([facility]) Oxygen saturation in Arterial blood by Pulse oximetry 97 % 97 % [facility] ([facility]) Body temperature 98.8 [degF] 98.8 [degF] [facility] ([facility]) Respiratory rate 18 /min 18 /min [facility] ( [facility]) Heart rate 78 /min 78 /min [facility] ([facility]) Body mass index (BMI) [Ratio] 29.6 kg/m2 29.6 k g/m2 [facility] ([facility]) Body weight 189.00 [lb_av] 189.00 [lb_av] [facility] ([facility]) Body height 67 [in_i] 67 [in_i] [facility] 5'7" Diastolic blood pressure 90 mm[Hg] 90 mm[Hg] [facility] ([facility]) Systolic blood pressure 142 mm[Hg] 142 mm[Hg] [facility] [place] body weight 135 [lb_av] 135 [lb_av] [facility] ([facility]) Oxygen saturation in Arterial blood by Pulse oximetry 98 % 98 % [facility] ([facility]) Body temperature 98.0 [degF] 98.0 [degF] [facility] ([facility]) Respiratory rate 14 /min 14 /min [facility] ( [facility]) Heart rate 100 /min 100 /min [facility] ([facility]) Body mass index (BMI) [Ratio] 29.9 kg/m2 29.9 k g/m2 [facility] ([facility]) Body weight 191.00 [lb_av] 191.00 [lb_av] [facility] ([facility]) Body height 67 [in_i] 67 [in_i] [facility] ([facility]) 5'7" Diastolic blood pressure 72 mm[Hg] 72 mm[Hg] [facility] ([facility]) Systolic blood pressure 160 mm[Hg] 160 mm[Hg] [facility] ([facility]) [place] body weight 135 [lb_av] 135 [lb_av] [facility] ([facility]) Oxygen saturation in Arterial blood by Pulse oximetry 98 % 98 % [facility] Body temperature 98.0 [degF] 98.0 [degF] [facility] ([facility]) Respiratory rate 18 /min 18 /min [facility] ( [facility]) Heart rate 97 /min 97 /min [facility] ([facility]) Body mass index (BMI) [Ratio] 31.2 kg/m2 31.2 k g/m2 [facility] ([facility]) Body weight 199.00 [lb_av] 199.00 [lb_av] [facility] ([facility]) Body height 67 [in_i] 67 [in_i] [facility] ([facility]) 5'7" Diastolic blood pressure 84 mm[Hg] 84 mm[Hg] [facility] ([facility]) Systolic blood pressure 166 mm[Hg] 166 mm[Hg] [facility] ([facility]) [place] body weight 135 [lb_av] 135 [lb_av] [facility] ([facility]) Oxygen saturation in Arterial blood by Pulse oximetry 99 % 99 % [facility] ([facility]) Body temperature 98.1 [degF] 98.1 [degF] [facility] ([facility]) Respiratory rate 18 /min 18 /min [facility] ( [facility]) Heart rate 94 /min 94 /min [facility] ([facility]) Body mass index (BMI) [Ratio] 30.0 kg/m2 30.0 k g/m2 [facility] ([facility]) Body weight 191.25 [lb_av] 191.25 [lb_av] [facility] ([facility]) Body height 67 [in_i] 67 [in_i] [facility] ([facility]) 5'7" Diastolic blood pressure 76 mm[Hg] 76 mm[Hg] [facility] ([facility]) Systolic blood pressure 124 mm[Hg] 124 mm[Hg] [facility] ([facility]) Oxygen saturation in Arterial blood by Pulse oximetry 99 % 99 % [facility] Body temperature 99.1 [degF] 99.1 [degF] [facility] ([facility]) Respiratory rate 18 /min 18 /min [facility] ( [facility]) Heart rate 53 /min 53 /min [facility] Body mass index (BMI) [Ratio] 30.2 kg/m2 30.2 k g/m2 [facility] ([facility]) Body weight 193.12 [lb_av] 193.12 [lb_av] [facility] ([facility]) Body height 67 [in_i] 67 [in_i] [facility] ([facility]) 5'7" Diastolic blood pressure 78 mm[Hg] 78 mm[Hg] [facility] ([facility]) Systolic blood pressure 136 mm[Hg] 136 mm[Hg] [facility] ([facility]) Patient Treatment Plan of Care Planned Activity Planned Date Details Description Data Source (s) Amoxicillin 500 MG Oral Capsule 01/29/2020 12:00:00 AM [facility] Rosuvastatin calcium 5 MG Oral Tablet 08/31/2019 09:00:00 AM [facility] Aspirin 81 MG Oral Tablet 08/31/2019 12:00:00 AM [facility] Multivital 08/31/2019 12:00:00 AM [facility] ([facility]) Losartan Potassium 50 MG 08/31/2019 12:00:00 AM [facility] ([facility]) Levothyroxine Sodium 75 MCG 08/31/2019 12:00:00 AM [facility] ([facility]) Fish Oil 875 MG 08/31/2019 12:00:00 AM [facility] ([facility]) Docusate Sodium 100 MG 08/31/2019 12:00:00 AM [facility] ([facility]) Crestor 5 MG 08/31/2019 12:00:00 AM [facility] ([facility]) Calcium 600+D 600-400 MG-UNIT 08/31/2019 12:00:00 AM [facility] ([facility]) Aspirin 81 MG 08/31/2019 12:00:00 AM [facility] ([facility]) Acetaminophen Extra Strength 500 MG 08/31/2019 12:00:00 AM [facility] ([facility]) Osteo Bi-Flex Adv [employer] 08/31/2019 12:00:00 AM [facility] ([facility]) Losartan Potassium 25 MG Oral Tablet 08/30/2019 09:00:00 AM [facility] Oxycodone Hydrochloride 5 MG Oral Tablet 08/30/2019 12:00:00 AM [facility] Docusate Sodium 100 MG Oral Capsule 08/30/2019 12:00:00 AM [facility] Acetaminophen 325 MG Oral Tablet 08/30/2019 12:00:00 AM [facility] Oxycodone Hydrochloride 5 MG Oral Tablet 08/28/2019 12:07:03 PM [facility] fentaNYL (SUBLIMAZE) (PF) injection 25 mcg 08/28/2019 12:07:03 PM [facility] metaxalone 800 MG Oral Tablet 08/28/2019 12:07:03 PM [facility] Bisacodyl 10 MG Rectal Suppository 08/28/2019 12:07:03 PM [facility] Magnesium Hydroxide 80 MG/ML Oral Suspension 08/28/2019 12:07:03 PM [facility] sodium phosphate 67.8 MG/ML / Sodium Phosphate, Monoba sic 185 MG/ML Enema 08/28/2019 12:07:03 PM [facility] Aspirin 81 MG Oral Tablet [facility]
--- NOTE | 2020-10-11 00:11 | REPVR ---
PROCEDURE INFORMATION: Exam: CT Abdomen And Pelvis With Contrast Exam date and time: 10/10/2020 10:58 PM Age: 70 years old Clinical indication: Other: Presyncope; Additional info: Presyncope, h/o covid TECHNIQUE: Imaging protocol: Computed tomography of the abdomen and pelvis with contrast. Radiation optimization: All CT scans at this facility use at least one of these dose optimization techniques: automated exposure control; mA and/or kV adjustment per patient size (includes targeted exams where dose is matched to clinical indication); or iterative reconstruction. Contrast material: ISO; Contrast volume: 100 ml; Contrast route: INTRAVENOUS (IV); COMPARISON: No relevant prior studies available. FINDINGS: Tubes, catheters and devices: Pacemaker leads in the right heart. Liver: Normal. No mass. Gallbladder and bile ducts: Status post cholecystectomy. CBD measures 10 mm in diameter. Pancreas: Normal. No ductal dilation. Spleen: Normal. No splenomegaly. Adrenal glands: Normal. No mass. Kidneys and ureters: Normal. No hydronephrosis. Stomach and bowel: Severe stool in the colon. No abnormal bowel dilatation. No abnormal bowel wall thickening. Negative for colonic diverticulitis. Appendix: The appendix is not seen. However, there is no evidence of appendicitis. Intraperitoneal space: Unremarkable. No free air. No significant fluid collection. Vasculature: Mild atherosclerotic disease. No aortic aneurysm. Lymph nodes: Unremarkable. No enlarged lymph nodes. Urinary bladder: Unremarkable as visualized. Reproductive: Status post hysterectomy. Bones/joints: Severe degenerative spine. No acute fracture. Grade 1 anterolisthesis of L3-L4 and L4-L5. Status post right hip replacement. Mild degenerative changes of the left hip. Soft tissues: Unremarkable. IMPRESSION: 1. Borderline dilated CBD for post cholecystectomy. Correlate with labs. 2. Severe stool in the colon. 3. Incidental findings as described. Electronically signed by: Johny Huitron On 10/11/2020 00:11:32 AM
--- NOTE | 2020-10-11 00:14 | REPVR ---
PROCEDURE INFORMATION: Exam: CT Angiography Chest With Contrast Exam date and time: 10/10/2020 10:58 PM Age: 70 years old Clinical indication: Other: Dimer; Additional info: Elevated ddimer, h/o covid TECHNIQUE: Imaging protocol: Computed tomographic angiography of the chest with contrast. 3D rendering (Not supervised by radiologist): MIP and/or 3D reconstructed images were created by the technologist. Radiation optimization: All CT scans at this facility use at least one of these dose optimization techniques: automated exposure control; mA and/or kV adjustment per patient size (includes targeted exams where dose is matched to clinical indication); or iterative reconstruction. Contrast material: ISO; Contrast volume: 100 ml; Contrast route: INTRAVENOUS (IV); COMPARISON: CT ANGIO CHEST - OUTSIDE PRIOR 09/11/2020 11:18 AM FINDINGS: Tubes, catheters and devices: Left cardiac pacemaker with leads in the right heart. Pulmonary arteries: Normal. No pulmonary emboli. Aorta: Unremarkable. No aortic aneurysm. No aortic dissection. Mild atherosclerotic disease. Bronchial tree: Visualized bronchial tree is unremarkable. Lungs: Multiple spiculated lung nodules bilaterally. Largest nodule located in the right upper lobe measuring 7 x 14 by 10 mm. No ground-glass opacities. No acute consolidation. Pleural spaces: Unremarkable. No pneumothorax. No pleural effusion. Heart: Unremarkable. No cardiomegaly. No pericardial effusion. Coronary arteries: Moderate coronary artery calcification. Lymph nodes: Unremarkable. No enlarged lymph nodes. Bones/joints: Moderate degenerative spine. No acute fracture. Soft tissues: Unremarkable. IMPRESSION: 1. Negative for pulmonary emboli. 2. No ground-glass opacities or consolidations to suggest pneumonia.No CT findings present to indicate pneumonia. Note that CT may be negative in the early stages of COVID-19. 3. Multiple spiculated lung nodules bilaterally. Unchanged from prior. Correlate with history. For patients at low risk (minimal or absent history of smoking and of other known risk factors), recommend CT Chest at 3-6 months, then consider CT Chest at 18-24 months. For patients at high risk (history of smoking or of other known risk factors), recommend CT Chest at 3-6 months, then CT Chest at 18-24 months. (Reference: Karrie) 4. Mediastinal lymphadenopathy. REFERENCES: 1. Karrie Weinberg, et al. Guidelines for Management of Incidental Pulmonary Nodules Detected on CT Images: From the Fleischner Society 2017. Radiology. 2017;284(1):228-243. 2. Gopal Montes De Oca, et al., Radiological Society of [place] Expert Consensus Statement on Reporting Chest CT Findings Related to COVID-19. Endorsed by the Society of Thoracic Radiology, the [place] [employer], and RSNA, Oct 2019. Electronically signed by: Johny Huitron On 10/11/2020 00:14:51 AM
[2020-10-11] MEDS ORDERED: METOPROLOL TART 25 MG TABLET PO ONE (00:55)
[2020-10-11 01:07] VITALS: BP 149/81
[2020-10-11] MEDS ORDERED: METO1TAB87 PO (01:11)
[2020-10-11 01:55] VITALS: BP 129/74
--- NOTE | 2020-10-11 02:27 | ECGEPIP ---
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
--- NOTE | 2020-10-11 12:43 | ED PDOC ---
Post-Departure Follow-Up cta chest faxed to dr matamoros for fu Ignacio Almeida MD Oct 11, 2020 12:43
== END 2020-10-11 02:26 | disposition home or self-care (01) ==
LOC: M ED 20:57
DX: R55 Syncope and collapse (principal); Z86.16 Personal history of COVID-19; K59.00 Constipation, unspecified; R00.0 Tachycardia, unspecified; R91.8 Other nonspecific abnormal finding of lung field; I10 Essential (primary) hypertension; E03.9 Hypothyroidism, unspecified; E11.9 Type 2 diabetes mellitus without complications; Z79.82 Long term (current) use of aspirin; Z79.899 Other long term (current) drug therapy
CPT/HCPCS: 36415; 71045; 71275; 74177; 80048; 80076; 81001; 82550; 82553; 82728; 83615; 83735; 83880; 84439; 84443; 84484; 85025; 85379; 85610; 85652; 85730; 86140; 87798; 93005; 93041; 94760; 99285; Q9967

== ENCOUNTER → 2020-10-28 | Outpatient (CLI) | payer MEDICARE ==
[~2020-10-28] MED LIST changes: +METO1TAB87 PO; +SM M250T PO
--- NOTE | 2020-10-29 08:40 | REP ---
INDICATION: DIAGNOSING ABNORMAL FINDING OF LUNG R91.8. Spiculated lung nodules and mediastinal lymphadenopathy. COMPARISON: Comparison chest CT studies are reviewed dated October 10, 2020 and September 11, 2020. CT abdomen study is from October 10, 2020.. TECHNIQUE: Fifty-one minutes following the intravenous injection of a 15.13 mCi dose of F-18 FDG, three-dimensional PET scintigraphy is acquired from the skull base to the proximal thighs. Triplanar noncontrast CT scanning is acquired through the same anatomic range for attenuation correction, and image registration with scan parameters optimized to minimize radiation exposure to the patient. PET scintigraphy and CT datasets were fused and displayed on a workstation with multiplanar and projection display capability. FINDINGS: There is a small subcentimeter left supraclavicular lymph node with slightly hypermetabolic uptake, maximum SUV value 2.98. There is a perivascular lymph node in the superior mediastinum at the thoracic inlet also just under a cm in size with mildly hypermetabolic uptake, 3.52. There is more bulky precarinal and left mediastinal lymphadenopathy which is hypermetabolic as well. Maximum standard uptake value in this location in the mediastinum is 8.39. There is bilateral hilar hypermetabolic adenopathy, 8.44 on the right and 8.58 on the left. There is a akil focus of hypermetabolic uptake in a portal caval lymph node in the upper abdomen, maximum SUV value 8.37. This lymph node measures 1.6 x 0.9 cm. No focal hepatic hypermetabolic uptake is seen. No other abdominal or pelvic hypermetabolic uptake is seen. There is FDG accumulation in multiple small ill-defined pulmonary nodules. Relatively low level FDG accumulation is seen. The most avid uptake in pulmonary nodules is seen in a right upper lobe perihilar nodule with maximum standard uptake value 6.09. There is a right middle lobe perihilar nodule with maximum SUV 4.97. The other nodules are is somewhat smaller and show less avid uptake. The spiculated nodule in the right apex has maximum SUV value 3.04. No abnormal skeletal uptake. IMPRESSION: There is hypermetabolic bilateral hilar and mediastinal lymphadenopathy and mildly hypermetabolic uptake is seen in multiple pulmonary nodules bilaterally as above. There is 1 akil focus of hypermetabolic uptake in the upper abdomen in a portal caval lymph node. There are 2 small lymph nodes showing mildly increased uptake in the superior mediastinum and left supraclavicular region respectively. Metastatic malignancy versus granulomatous disease. <Electronically signed by Yemi Morley > 10/29/20 [id number]
== END ==
LOC: M PLARAD 13:17
PROVIDERS: ATTEND Family Medicine
DX: R91.8 Other nonspecific abnormal finding of lung field (principal)
CPT/HCPCS: 78815; A9552

== ENCOUNTER → 2020-11-08 | Outpatient (CLI) | payer MEDICARE ==
[2020-11-08 11:19] LABS: BASO # 0.1 10^3/uL (0.0-0.2); BASO % 1.1 % (0.0-1.0); EOS # 0.1 10^3/uL (0.0-0.5); EOS % 1.3 % (0.0-3.0); HEMATOCRIT 37.4 % (36.0-47.0); HEMOGLOBIN 12.3 g/dl (12.0-15.5); LYMPH # 1.3 10^3/uL (1.5-5.0); LYMPH % 27.5 % (24.0-44.0); MEAN CORPUSCULAR HEMOGLOBIN 31.1 pg (27.0-33.0); MEAN CORPUSCULAR HGB CONC 32.9 g/dl (32.0-36.5); MEAN CORPUSCULAR VOLUME 94.7 fl (80.0-96.0); MONO # 0.5 10^3/uL (0.0-0.8); NEUTROPHILS # 2.7 10^3/uL (1.5-8.5); NEUTROPHILS % 58.9 % (36.0-66.0); PLATELET COUNT, AUTOMATED 255 10^3/uL (150-450); RED BLOOD COUNT 3.95 10^6/uL (4.00-5.40); WHITE BLOOD COUNT 4.6 10^3/uL (4.0-10.0)
[2020-11-08 11:25] LABS: INR 0.99; PROTHROMBIN TIME 13.3 SECONDS (12.5-14.3)
[2020-11-08 11:26] LABS: PARTIAL THROMBOPLASTIN TIME 32.2 SECONDS (24.2-38.5)
[2020-11-08 11:50] LABS: BLOOD UREA NITROGEN 15 MG/DL (7-18); CALCIUM LEVEL 9.3 MG/DL (8.8-10.2); CARBON DIOXIDE LEVEL 31 MEQ/L (21-32); CHLORIDE LEVEL 102 MEQ/L (98-107); GLOMERULAR FILTRATION RATE > 60.0 (>45); GLUCOSE, FASTING 120 MG/DL (70-100); POTASSIUM SERUM 4.4 MEQ/L (3.5-5.1); RHEUMATOID FACTOR QUANT < 10.0 IU/ML (<15.0); SODIUM LEVEL 136 MEQ/L (136-145)
== END ==
LOC: M PLALAB 09:19
PROVIDERS: ATTEND Internal Medicine Pulmonary Disease
DX: R91.8 Other nonspecific abnormal finding of lung field (principal)

== ENCOUNTER → 2020-11-25 | Outpatient (REF) | payer MEDICARE ==
[~2020-11-25] MED LIST changes: +BIOFTAB PO; +CALC-190 PO; -CALC500T44 PO; +CHLO125TA PO; +CITA10TA5 PO; +CO Q100C10 PO; +CO Q10CA PO; +MIRA3350 PO; +OYST500T92 PO; +RA B1TAB8 PO; +RA M500C PO; +SPIR-10 PO; +WOMETAB PO; +ZINC1TAB2 PO
[2020-11-25 14:49] LABS: ALBUMIN 3.9 GM/DL (3.2-5.2); BLOOD UREA NITROGEN 14 MG/DL (7-18); CALCIUM LEVEL 9.6 MG/DL (8.8-10.2); CARBON DIOXIDE LEVEL 28 MEQ/L (21-32); CHLORIDE LEVEL 99 MEQ/L (98-107); GLOMERULAR FILTRATION RATE > 60.0 (>45); GLUCOSE, FASTING 111 MG/DL (70-100); PHOSPHORUS LEVEL 3.5 MG/DL (2.5-4.9); POTASSIUM SERUM 4.7 MEQ/L (3.5-5.1); SODIUM LEVEL 133 MEQ/L (136-145)
== END ==
LOC: M PLALAB 13:37
PROVIDERS: ATTEND Internal Medicine Cardiovascular Disease
DX: I10 Essential (primary) hypertension (principal)

== ENCOUNTER → 2020-11-29 | Outpatient (CLI) | payer MEDICARE | LOC: M LABSMTC 10:03 | PROVIDERS: ATTEND Anesthesiology | DX: Z01.812 Encounter for preprocedural laboratory examination (principal); Z20.822 Contact with and (suspected) exposure to COVID-19 ==

== ENCOUNTER 2020-12-04 10:22 | Day surgery (SDC) | payer MEDICARE ==
[~2020-12-04] VITALS: Ht 175.3 cm; Wt 81.6 kg
[~2020-12-04 10:22] MED LIST changes: +ALBUTEROL SULFATE 2.5 MG/0.5 ML INH NEB SOLN INH ONE; +LIDOCAINE 4% INJ 5ML AMP INH ONE; +LR 1,000 ML IV ONE
[2020-12-04] MEDS ORDERED: SCOPOLAMINE 1MG TRANSDERMAL PATCH TOP ONE (11:20)
[2020-12-04] MEDS ORDERED: dexameTHASONE 4 MG/ML 1ML VIAL (J1100 PER 1MG) As Ordered ONE (11:23)
[2020-12-04] MEDS ORDERED: fentaNYL 100 MCG/2 ML INJECTION (J3010) As Ordered ONE (11:23)
[2020-12-04] MEDS ORDERED: LIDOCAINE 2% 100MG/5ML SDV (FOR ANES.) As Ordered ONE (11:23)
[2020-12-04] MEDS ORDERED: ONDANSETRON 4MG/2ML VIAL As Ordered ONE (11:23)
[2020-12-04] MEDS ORDERED: ROCURONIUM BROMIDE 50 MG/5 ML VIAL As Ordered ONE (11:23)
[2020-12-04] MEDS ORDERED: MIDAZOLAM INJ 2MG/2ML VIAL (J2250 PER 1MG) As Ordered ONE (11:23)
[2020-12-04] MEDS ORDERED: propofoL 200 MG/20 ML VIAL As Ordered ONE (11:23)
[2020-12-04] MEDS ORDERED: LABETALOL 100MG/20ML VIAL As Ordered ONE (11:34)
[2020-12-04] MEDS ORDERED: CETACAINE SPRAY 5GM As Ordered ONE (11:51)
[2020-12-04] MEDS ORDERED: THROMBIN SOLN 5,000 UNITS VIAL As Ordered ONE (11:51)
[2020-12-04] MEDS ORDERED: EPINEPHrine 1MG/10ML SYRINGE 1.5IN As Ordered ONE (11:51)
[2020-12-04] MEDS ORDERED: ceFAZolin SOD 2 GM in IV 1 EA IV ONE (12:20)
[2020-12-04] MEDS ORDERED: SUGAMMADEX SODIUM 500 MG/5 ML VIAL (BRIDION) As Ordered ONE (12:59)
[2020-12-04] MEDS ORDERED: oxyCODONE 5MG TAB PO PRN (13:40)
[2020-12-04] MEDS ORDERED: LR 1,000 ML IV SCH (13:40)
[2020-12-04] MEDS ORDERED: fentaNYL 100 MCG/2 ML INJECTION (J3010) IV PRN (13:40)
[2020-12-04] MEDS ORDERED: ONDANSETRON 4MG/2ML VIAL IV PRN (13:40)
--- NOTE | 2020-12-04 13:43 | REP ---
INDICATION: s/p bronch with subcarinal and paratrachial bxs COMPARISON: 10/10/2020 TECHNIQUE: Portable AP view of the chest FINDINGS: The mediastinum and cardiac silhouette are stable and within normal limits for portable technique. The lung herr are clear without acute consolidation, effusion, or pneumothorax. Skeletal structures are intact. IMPRESSION: No acute cardiopulmonary process appreciated. <Electronically signed by Max Gann > 12/04/20 [id number]
[2020-12-04 13:56] VITALS: BP 129/67
--- NOTE | 2020-12-04 20:37 | ROOR ---
Patient Name: Key Sanz Procedure Date: 12/04/2020 11:54 AM Date of : 1950 Admit Type: Outpatient Age: 70 Room: [facility] Note Status: Finalized Attending MD: Snehal Garcia MD Procedure: Bronchoscopy Indications: Bilateral hilar lymphadenopathy, Mediastinal adenopathy Providers: Snehal Garcia MD (Doctor) Referring MD: Requesting Physician: Medicines: Lidocaine 4% via nebulizer with Albuterol 2.5 mg, General Anesthesia, Cetacaine topical Complications: No immediate complications. Estimated blood loss: Minimal Procedure: Pre-Anesthesia Assessment: - Prior to the procedure, a History and Physical was performed, and patient medications and allergies were reviewed. The patient's tolerance of previous anesthesia was also reviewed. The risks and benefits of the procedure and the sedation options and risks were discussed with the patient. All questions were answered, and informed consent was obtained. Prior Anticoagulants: The patient has taken aspirin, last dose was day of procedure. ASA Grade Assessment: III - A patient with severe systemic disease. After reviewing the risks and benefits, the patient was deemed in satisfactory condition to undergo the procedure. - Patient identification and proposed procedure were verified prior to the procedure by the physician, the nurse, the anesthesiologist, the bacteriologist industrial and the automotive exhaust emissions technician. The procedure was verified in the procedure room. The Bronchoscope was introduced through the mouth, via the endotracheal tube (the patient was intubated for the procedure) and advanced to the tracheobronchial tree of both lungs. The procedure was accomplished without difficulty. The patient tolerated the procedure well. Findings: The endotracheal tube is in good position. The visualized portion of the trachea is of normal caliber. The dedra is sharp. The tracheobronchial tree was examined to at least the first subsegmental level. Bronchial mucosa and anatomy are normal with scatterd mucosal pitting and webbing; there are no endobronchial lesions, and scant secretions. An endobronchial ultrasound endoscope was utilized in order to assist with fine needle aspiration in the left paratracheal area and in the subcarinal area. Transbronchial needle aspirations of a lymph nodes were performed in the left paratracheal area and in the subcarinal area using an Olympus EBUS-TBNA 21 gauge needle and sent for routine cytology. The procedure was guided by ultrasound. Transbronchial needle aspiration technique was selected because the sampling site was not visible endoscopically. Impression: - Bilateral hilar lymphadenopathy - Mediastinal adenopathy - The airway examination was normal. - Endobronchial ultrasound was performed. - A transbronchial needle aspiration was performed. Recommendation: - Await test results. - The patient will be observed post-procedure, until all discharge criteria are met. Procedure Code(s): --- Professional --- 69776, Bronchoscopy, rigid or flexible, including fluoroscopic guidance, when performed; with transbronchial needle aspiration biopsy(s), trachea, main stem and/or lobar bronchus(i) 51547, Bronchoscopy, rigid or flexible, including fluoroscopic guidance, when performed; with transendoscopic endobronchial ultrasound (EBUS) during bronchoscopic diagnostic or therapeutic intervention(s) for peripheral lesion(s) (List separately in addition to code for primary procedure[s]) CPT copyright 2019 [employer]. All rights reserved. The codes documented in this report are preliminary and upon electrogalvanizing machine operator review may be revised to meet current compliance requirements. Attending Participation: I personally performed the entire procedure. Snehal Garcia MD 12/04/2020 8:37:16 PM Number of Addenda: 0 Note Initiated On: 12/04/2020 11:54 AM
== END 2020-12-04 15:25 | disposition home or self-care (01) ==
LOC: M SDC 10:22
PROVIDERS: ATTEND Internal Medicine Pulmonary Disease
DX: D36.0 Benign neoplasm of lymph nodes (principal); R59.9 Enlarged lymph nodes, unspecified; I10 Essential (primary) hypertension; E03.9 Hypothyroidism, unspecified; Z79.82 Long term (current) use of aspirin; Z79.899 Other long term (current) drug therapy; E11.9 Type 2 diabetes mellitus without complications; Z95.0 Presence of cardiac pacemaker; R55 Syncope and collapse; F41.9 Anxiety disorder, unspecified
CPT/HCPCS: 31629; 31654; 71045; 88173; 88305; 88312; 88313; J0690; J1100; J2250; J2405; J3010

== ENCOUNTER → 2021-03-05 | Outpatient (CLI) | payer MEDICARE ==
[~2021-03-05] MED LIST changes: -ALBUTEROL SULFATE 2.5 MG/0.5 ML INH NEB SOLN INH ONE; -LIDOCAINE 4% INJ 5ML AMP INH ONE; -LR 1,000 ML IV ONE
--- NOTE | 2021-03-05 11:19 | REPMRS ---
Patient History The patient states she has not had a clinical breast exam in over a year. Family history of unknown cancer at age 71 in mother, unknown cancer at age 57 in father. No breast complaints, Pacemaker scar site cut off tender glass. Moderna vaccine 12/12/20 left arm. 01/08/21 left arm. Patient states no breast complaints today. Patient has signed MRS History Sheet. Digital Woman Screen Mammo: March 05, 2021 - Exam #: [id number] Bilateral CC and MLO view(s) were taken. Technologist: RT Tlyer Prior study comparison: August 22, 2018, bilateral digital mammo screening bilat, performed at [facility]. August 05, 2017, bilateral digital mammo screening bilat, performed at [facility]. July 29, 2016, bilateral digital mammo screening bilat, performed at [facility]. FINDINGS: There are scattered fibroglandular densities. The Volpara volumetric breast density category is:B. A pacemaker power plant projects on the left as before. There has been no change in the appearance of the mammogram from the prior studies. There is a mild amount of scattered fibroglandular density which is fairly symmetric. There is no interval development of dominant mass, architectural distortion, or grouped microcalcification suggestive of malignancy. 3-D tomosynthesis shows no additional findings. Assessment: BI-RADS/ACR category 2 mammogram. Benign Findings. Recommendation Routine screening mammogram of both breasts in 1 year (for women over age 40). This patient's [facility] Lifetime Breast Cancer Risk is estimated at 4.8 %. This mammogram was interpreted with the aid of an FDA-approved computer-aided dectection system. Electronically Signed By: Yemi Morley MD 03/05/21 [id number]
== END ==
LOC: M WHC 10:03
PROVIDERS: ATTEND Family Medicine
DX: Z12.31 Encounter for screening mammogram for malignant neoplasm of breast (principal); Z80.9 Family history of malignant neoplasm, unspecified

== ENCOUNTER → 2021-03-12 | Outpatient (CLI) | payer MEDICARE ==
[2021-03-12 11:09] LABS: CREATININE, URINE 97.1 MG/DL; MALB URINE SIEMENS 6.3 MG/L; MAU/CREAT RATIO 6.4 MCG/MG (0.0-30.0)
[2021-03-12 11:19] LABS: ALBUMIN 3.7 GM/DL (3.2-5.2); ALT/SGPT 20 U/L (12-78); BILIRUBIN,TOTAL 0.6 MG/DL (0.2-1.0); BLOOD UREA NITROGEN 16 MG/DL (7-18); CARBON DIOXIDE LEVEL 32 MEQ/L (21-32); CHLORIDE LEVEL 105 MEQ/L (98-107); CHOLESTEROL LEVEL 195 MG/DL (<200); CHOLESTEROL RISK RATIO 2.635 (<5); CREATININE FOR GFR 0.63 MG/DL (0.55-1.30); FREE T4 1.14 NG/DL (0.76-1.46); GLOMERULAR FILTRATION RATE > 60.0 (>45); GLUCOSE, FASTING 102 MG/DL (70-100); HDL CHOLESTEROL 74 MG/DL (>40); LDL CHOLESTEROL 110 MG/DL (<100); NON-HDL-C 121 MG/DL; POTASSIUM SERUM 5.3 MEQ/L (3.5-5.1); SODIUM LEVEL 138 MEQ/L (136-145); THYROID STIMULATING HORMONE 0.359 uIU/ML (0.358-3.740); TOTAL PROTEIN 6.5 GM/DL (6.4-8.2); TRIGLYCERIDES LEVEL 56 MG/DL (<150)
[2021-03-12 11:21] LABS: HEMOGLOBIN A1c 5.9 %
== END ==
LOC: M PLALAB 08:54
PROVIDERS: ATTEND Family Medicine
DX: E11.9 Type 2 diabetes mellitus without complications (principal); E03.9 Hypothyroidism, unspecified; E78.2 Mixed hyperlipidemia

== ENCOUNTER → 2021-05-06 | Outpatient (CLI) | payer MEDICARE ==
--- NOTE | 2021-05-06 11:41 | DEXAMM ---
INDICATION: Z78.0 MENOPAUSAL STATE. COMPARISON: 02/04/2018. TECHNIQUE: Bone density was measured using dual-energy x-ray absorptiometry (DEXA). FINDINGS: AP SPINE L1-L4 BMD 1.155 g/cm2 Young Adult T-Score -0.3 Age Matched Z-Score 1.3. LT FEMUR, TOTAL BMD 0.970 g/cm2 Young Adult T-Score -0.3 Age Matched Z-Score 1.1. LT NECK BMD 0.840 g/cm2 Young Adult T-Score -1.4 Age Matched Z-Score 0.2. IMPRESSION: There is normal bone density of the spine. There is low bone density of the left hip. The density of the spine has decreased 4.9% since the initial exam on 02/04/2018. The density of the left hip has decreased 7.4% since initial exam on 02/04/2018. FOLLOW-UP: Recommendation for the next bone density exam: 2 years. <Electronically signed by Lux Berrios > 05/06/21 [id number]
== END ==
LOC: M WHC 10:21
PROVIDERS: ATTEND Physician Assistant
DX: I10 Essential (primary) hypertension (principal); Z78.0 Asymptomatic menopausal state; M85.852 Other specified disorders of bone density and structure, left thigh

== ENCOUNTER → 2021-06-06 | Outpatient (CLI) | payer MEDICARE ==
--- NOTE | 2021-06-06 14:29 | REP ---
INDICATION: ENLARGED LYMPHNODE SCARCOIDO ANB FINDING LUNG FIEL COMPARISON: Multiple the latest 10/10/2020 TECHNIQUE: Standard helical technique without contrast FINDINGS: Limited evaluation of the mediastinum and pulmonary tony shows no significant change from the prior exam. There is probable hilar adenopathy. There is mediastinal adenopathy status quo. There are no pleural or pericardial effusions. There is no significant change in appearance of the imaged upper abdomen or imaged osseous structures. Evaluation of the lung herr shows numerous scattered spiculated nodules some of these nodules have increased in size particularly in the apicoposterior segment of the left upper lobe abutting the major fissure and 2 in the superior segment the right lower lobe. And 1 in the left lung apex which is pleural based. No definite new abnormal lung lesions have developed. IMPRESSION: There are numerous asymmetric lung densities some of which appear to have increased as described above. There is adenopathy in suspected adenopathy as described above. Other findings as described above. <Electronically signed by Darren Corona > 06/06/21 [id number]
== END ==
LOC: M RAD 13:52
PROVIDERS: ATTEND Internal Medicine Pulmonary Disease
DX: R59.0 Localized enlarged lymph nodes (principal); D86.2 Sarcoidosis of lung with sarcoidosis of lymph nodes; R91.8 Other nonspecific abnormal finding of lung field

== ENCOUNTER → 2021-06-12 | Outpatient (REF) | payer MEDICARE ==
[2021-06-12 18:21] LABS: BASO # 0.1 10^3/uL (0.0-0.2); BASO % 1.4 % (0.0-1.0); EOS # 0.4 10^3/uL (0.0-0.5); EOS % 8.1 % (0.0-3.0); HEMATOCRIT 37.5 % (36.0-47.0); HEMOGLOBIN 12.8 g/dl (12.0-15.5); LYMPH # 1.5 10^3/uL (1.5-5.0); LYMPH % 29.1 % (24.0-44.0); MEAN CORPUSCULAR HEMOGLOBIN 31.2 pg (27.0-33.0); MEAN CORPUSCULAR HGB CONC 34.1 g/dl (32.0-36.5); MEAN CORPUSCULAR VOLUME 91.5 fl (80.0-96.0); MONO # 0.5 10^3/uL (0.0-0.8); MONO % 8.9 % (2.0-8.0); NEUTROPHILS # 2.7 10^3/uL (1.5-8.5); NEUTROPHILS % 52.3 % (36.0-66.0); PLATELET COUNT, AUTOMATED 235 10^3/uL (150-450); WHITE BLOOD COUNT 5.2 10^3/uL (4.0-10.0)
[2021-06-12 18:49] LABS: ALT/SGPT 19 U/L (12-78); BILIRUBIN,DIRECT 0.1 MG/DL (0.0-0.2); BILIRUBIN,TOTAL 0.4 MG/DL (0.2-1.0); CALCIUM LEVEL 9.9 MG/DL (8.8-10.2); CREATININE FOR GFR 0.74 MG/DL (0.55-1.30); GLOMERULAR FILTRATION RATE > 60.0 (>45); TOTAL PROTEIN 6.9 GM/DL (6.4-8.2)
== END ==
LOC: M LAB REF 16:51
PROVIDERS: ATTEND Internal Medicine Pulmonary Disease
DX: D86.2 Sarcoidosis of lung with sarcoidosis of lymph nodes (principal)

== ENCOUNTER → 2021-07-02 | Outpatient (CLI) | payer MEDICARE ==
[2021-07-02 13:45] LABS: BLOOD UREA NITROGEN 20 MG/DL (7-18); CALCIUM LEVEL 9.6 MG/DL (8.8-10.2); CARBON DIOXIDE LEVEL 31 MEQ/L (21-32); CHLORIDE LEVEL 103 MEQ/L (98-107); CREATININE FOR GFR 0.87 MG/DL (0.55-1.30); GLOMERULAR FILTRATION RATE > 60.0 (>45); GLUCOSE, FASTING 98 MG/DL (70-100); POTASSIUM SERUM 5.4 MEQ/L (3.5-5.1); SODIUM LEVEL 137 MEQ/L (136-145)
[2021-07-02 13:50] LABS: HEMOGLOBIN A1c 6.3 %
== END ==
LOC: M PLALAB 09:07
PROVIDERS: ATTEND Physician Assistant
DX: E11.9 Type 2 diabetes mellitus without complications (principal)

== ENCOUNTER → 2021-07-24 | Outpatient (CLI) | payer MEDICARE ==
[2021-07-24 13:24] LABS: BASO % 0.6 % (0.0-1.0); EOS # 0.1 10^3/uL (0.0-0.5); EOS % 0.9 % (0.0-3.0); HEMATOCRIT 39.4 % (36.0-47.0); HEMOGLOBIN 12.7 g/dl (12.0-15.5); LYMPH # 1.8 10^3/uL (1.5-5.0); LYMPH % 27.1 % (24.0-44.0); MEAN CORPUSCULAR HEMOGLOBIN 31.1 pg (27.0-33.0); MEAN CORPUSCULAR HGB CONC 32.2 g/dl (32.0-36.5); MEAN CORPUSCULAR VOLUME 96.3 fl (80.0-96.0); MONO # 0.6 10^3/uL (0.0-0.8); MONO % 9.6 % (2.0-8.0); NEUTROPHILS % 61.3 % (36.0-66.0); PLATELET COUNT, AUTOMATED 239 10^3/uL (150-450); RED BLOOD COUNT 4.09 10^6/uL (4.00-5.40); WHITE BLOOD COUNT 6.5 10^3/uL (4.0-10.0)
[2021-07-24 15:19] LABS: ALBUMIN 3.2 GM/DL (3.2-5.2); CALCIUM LEVEL 9.1 MG/DL (8.8-10.2); CREATININE FOR GFR 1.04 MG/DL (0.55-1.30); GLOMERULAR FILTRATION RATE 56.1 (>45); PHOSPHORUS LEVEL 2.5 MG/DL (2.5-4.9)
== END ==
LOC: M PLALAB 10:43
PROVIDERS: ATTEND Internal Medicine Cardiovascular Disease
DX: I34.0 Nonrheumatic mitral (valve) insufficiency (principal); I50.32 Chronic diastolic (congestive) heart failure; I11.0 Hypertensive heart disease with heart failure; I49.3 Ventricular premature depolarization

== ENCOUNTER → 2021-10-01 | Outpatient (CLI) | payer MEDICARE ==
[~2021-10-01] MED LIST changes: -CITA10TA5 PO; +CITA10TA7 PO; +LOSA50TA28 PO; -LOSA50TA88 PO
[2021-10-01 10:30] LABS: BASO # 0.1 10^3/uL (0.0-0.2); EOS # 0.2 10^3/uL (0.0-0.5); EOS % 5.9 % (0.0-3.0); HEMATOCRIT 40.1 % (36.0-47.0); HEMOGLOBIN 12.9 g/dl (12.0-15.5); LYMPH # 1.4 10^3/uL (1.5-5.0); LYMPH % 36.1 % (24.0-44.0); MEAN CORPUSCULAR HEMOGLOBIN 31.5 pg (27.0-33.0); MEAN CORPUSCULAR HGB CONC 32.2 g/dl (32.0-36.5); MONO # 0.5 10^3/uL (0.0-0.8); NEUTROPHILS # 1.7 10^3/uL (1.5-8.5); PLATELET COUNT, AUTOMATED 241 10^3/uL (150-450); RED BLOOD COUNT 4.09 10^6/uL (4.00-5.40); WHITE BLOOD COUNT 3.9 10^3/uL (4.0-10.0)
[2021-10-01 10:57] LABS: ALBUMIN 3.9 GM/DL (3.2-5.2); ALT/SGPT 20 U/L (12-78); BILIRUBIN,TOTAL 0.5 MG/DL (0.2-1.0); BLOOD UREA NITROGEN 13 MG/DL (7-18); CALCIUM LEVEL 9.1 MG/DL (8.8-10.2); CARBON DIOXIDE LEVEL 30 MEQ/L (21-32); CHLORIDE LEVEL 103 MEQ/L (98-107); CHOLESTEROL LEVEL 171 MG/DL (<200); CHOLESTEROL RISK RATIO 2.342 (<5); CREATININE FOR GFR 0.77 MG/DL (0.55-1.30); FREE T4 1.32 NG/DL (0.76-1.46); GLOMERULAR FILTRATION RATE > 60.0 (>45); GLUCOSE, FASTING 95 MG/DL (70-100); HDL CHOLESTEROL 73 MG/DL (>40); LDL CHOLESTEROL 86 MG/DL (<100); NON-HDL-C 98 MG/DL; POTASSIUM SERUM 4.7 MEQ/L (3.5-5.1); SODIUM LEVEL 138 MEQ/L (136-145); THYROID STIMULATING HORMONE 0.229 uIU/ML (0.358-3.740); TOTAL PROTEIN 6.6 GM/DL (6.4-8.2); TRIGLYCERIDES LEVEL 60 MG/DL (<150)
[2021-10-01 11:09] LABS: HEMOGLOBIN A1c 6.2 %
== END ==
LOC: M PLALAB 08:50
PROVIDERS: ATTEND Family Medicine
DX: E11.9 Type 2 diabetes mellitus without complications (principal); E03.9 Hypothyroidism, unspecified; E78.2 Mixed hyperlipidemia

== ENCOUNTER → 2021-10-30 | Outpatient (CLI) | payer MEDICARE ==
[2021-10-30 11:47] LABS: BASO # 0.1 10^3/uL (0.0-0.2); BASO % 1.6 % (0.0-1.0); EOS # 0.2 10^3/uL (0.0-0.5); EOS % 4.3 % (0.0-3.0); HEMATOCRIT 38.3 % (36.0-47.0); HEMOGLOBIN 12.8 g/dl (12.0-15.5); LYMPH # 1.3 10^3/uL (1.5-5.0); MEAN CORPUSCULAR HEMOGLOBIN 32.2 pg (27.0-33.0); MEAN CORPUSCULAR HGB CONC 33.4 g/dl (32.0-36.5); MEAN CORPUSCULAR VOLUME 96.2 fl (80.0-96.0); MONO # 0.5 10^3/uL (0.0-0.8); NEUTROPHILS # 1.7 10^3/uL (1.5-8.5); NEUTROPHILS % 44.8 % (36.0-66.0); PLATELET COUNT, AUTOMATED 219 10^3/uL (150-450); RED BLOOD COUNT 3.98 10^6/uL (4.00-5.40); WHITE BLOOD COUNT 3.7 10^3/uL (4.0-10.0)
[2021-10-30 13:46] LABS: ALBUMIN 3.7 GM/DL (3.2-5.2); ALT/SGPT 26 U/L (12-78); BILIRUBIN,TOTAL 0.4 MG/DL (0.2-1.0); BLOOD UREA NITROGEN 17 MG/DL (7-18); CALCIUM LEVEL 9.2 MG/DL (8.8-10.2); CARBON DIOXIDE LEVEL 30 MEQ/L (21-32); CHLORIDE LEVEL 103 MEQ/L (98-107); CREATININE FOR GFR 0.67 MG/DL (0.55-1.30); GLOMERULAR FILTRATION RATE > 60.0 (>45); GLUCOSE, FASTING 100 MG/DL (70-100); NT-PRO BNP 231 PG/ML (<125); POTASSIUM SERUM 4.9 MEQ/L (3.5-5.1); SODIUM LEVEL 138 MEQ/L (136-145); TOTAL PROTEIN 6.2 GM/DL (6.4-8.2)
== END ==
LOC: M PLALAB 08:49
PROVIDERS: ATTEND Internal Medicine Cardiovascular Disease
DX: I50.32 Chronic diastolic (congestive) heart failure (principal)

== ENCOUNTER → 2021-11-03 | Outpatient (CLI) | payer MEDICARE ==
[~2021-11-03] MED LIST changes: +ISOVUE-370 76% 100ML VIAL ONE
== END ==
LOC: M PLAIMG 08:05
PROVIDERS: ATTEND Internal Medicine Pulmonary Disease
DX: D86.2 Sarcoidosis of lung with sarcoidosis of lymph nodes (principal); Z95.0 Presence of cardiac pacemaker; R59.0 Localized enlarged lymph nodes; R91.8 Other nonspecific abnormal finding of lung field
CPT/HCPCS: 71260; Q9967

== ENCOUNTER → 2021-11-10 | Outpatient (CLI) | payer MEDICARE ==
[~2021-11-10] MED LIST changes: -ISOVUE-370 76% 100ML VIAL ONE
[2021-11-10 15:16] LABS: BASO # 0.1 10^3/uL (0.0-0.2); BASO % 1.1 % (0.0-1.0); EOS # 0.2 10^3/uL (0.0-0.5); EOS % 3.6 % (0.0-3.0); HEMATOCRIT 37.2 % (36.0-47.0); HEMOGLOBIN 12.3 g/dl (12.0-15.5); LYMPH # 1.4 10^3/uL (1.5-5.0); LYMPH % 26.8 % (24.0-44.0); MEAN CORPUSCULAR HEMOGLOBIN 31.5 pg (27.0-33.0); MEAN CORPUSCULAR HGB CONC 33.1 g/dl (32.0-36.5); MEAN CORPUSCULAR VOLUME 95.1 fl (80.0-96.0); MONO # 0.5 10^3/uL (0.0-0.8); MONO % 9.5 % (2.0-8.0); NEUTROPHILS # 3.1 10^3/uL (1.5-8.5); NEUTROPHILS % 58.6 % (36.0-66.0); PLATELET COUNT, AUTOMATED 211 10^3/uL (150-450); RED BLOOD COUNT 3.91 10^6/uL (4.00-5.40); WHITE BLOOD COUNT 5.3 10^3/uL (4.0-10.0)
[2021-11-10 15:20] LABS: ALBUMIN 3.6 GM/DL (3.2-5.2); ALT/SGPT 28 U/L (12-78); BILIRUBIN,DIRECT 0.2 MG/DL (0.0-0.2); BILIRUBIN,TOTAL 0.5 MG/DL (0.2-1.0); CALCIUM LEVEL 9.1 MG/DL (8.8-10.2); CREATININE FOR GFR 0.75 MG/DL (0.55-1.30); GLOMERULAR FILTRATION RATE > 60.0 (>45); TOTAL PROTEIN 5.9 GM/DL (6.4-8.2)
== END ==
LOC: M PLALAB 12:47
PROVIDERS: ATTEND Internal Medicine Pulmonary Disease
DX: D86.2 Sarcoidosis of lung with sarcoidosis of lymph nodes (principal)

== ENCOUNTER → 2022-03-12 | Outpatient (CLI) | payer MEDICARE ==
[2022-03-12 13:34] LABS: BASO # 0.1 10^3/uL (0.0-0.2); BASO % 1.4 % (0.0-1.0); EOS # 0.1 10^3/uL (0.0-0.5); HEMATOCRIT 40.3 % (36.0-47.0); HEMOGLOBIN 13.4 g/dl (12.0-15.5); LYMPH # 1.5 10^3/uL (1.5-5.0); LYMPH % 34.7 % (24.0-44.0); MEAN CORPUSCULAR HEMOGLOBIN 30.9 pg (27.0-33.0); MEAN CORPUSCULAR HGB CONC 33.3 g/dl (32.0-36.5); MEAN CORPUSCULAR VOLUME 93.1 fl (80.0-96.0); MONO # 0.5 10^3/uL (0.0-0.8); NEUTROPHILS # 2.1 10^3/uL (1.5-8.5); NEUTROPHILS % 49.9 % (36.0-66.0); PLATELET COUNT, AUTOMATED 239 10^3/uL (150-450); RED BLOOD COUNT 4.33 10^6/uL (4.00-5.40); WHITE BLOOD COUNT 4.3 10^3/uL (4.0-10.0)
[2022-03-12 13:56] LABS: ALBUMIN 3.8 GM/DL (3.2-5.2); ALT/SGPT 21 U/L (12-78); BILIRUBIN,TOTAL 0.7 MG/DL (0.2-1.0); BLOOD UREA NITROGEN 14 MG/DL (7-18); CALCIUM LEVEL 9.7 MG/DL (8.8-10.2); CARBON DIOXIDE LEVEL 30 MEQ/L (21-32); CHLORIDE LEVEL 106 MEQ/L (98-107); CHOLESTEROL LEVEL 199 MG/DL (<200); CHOLESTEROL RISK RATIO 2.689 (<5); CREATININE FOR GFR 0.66 MG/DL (0.55-1.30); FREE T4 1.04 NG/DL (0.76-1.46); GLOMERULAR FILTRATION RATE > 60.0 (>45); GLUCOSE, FASTING 119 MG/DL (70-100); HDL CHOLESTEROL 74 MG/DL (>40); LDL CHOLESTEROL 110 MG/DL (<100); NON-HDL-C 125 MG/DL; SODIUM LEVEL 138 MEQ/L (136-145); THYROID STIMULATING HORMONE 0.274 uIU/ML (0.358-3.740); TOTAL PROTEIN 6.6 GM/DL (6.4-8.2); TRIGLYCERIDES LEVEL 73 MG/DL (<150)
[2022-03-12 14:25] LABS: CREATININE, URINE 58.1 MG/DL; MALB URINE SIEMENS < 5.0 MG/L; MAU/CREAT RATIO 8.6 MCG/MG (0.0-30.0)
[2022-03-12 15:03] LABS: HEMOGLOBIN A1c 6.1 %
== END ==
LOC: M PLALAB 09:25
PROVIDERS: ATTEND Family Medicine
DX: E11.9 Type 2 diabetes mellitus without complications (principal)

== ENCOUNTER → 2022-05-04 | Outpatient (CLI) | payer MEDICARE ==
[2022-05-04 14:02] LABS: HEMOGLOBIN 13.3 g/dl (12.0-15.5); MEAN CORPUSCULAR HEMOGLOBIN 30.9 pg (27.0-33.0); MEAN CORPUSCULAR HGB CONC 32.4 g/dl (32.0-36.5); MEAN CORPUSCULAR VOLUME 95.3 fl (80.0-96.0); PLATELET COUNT, AUTOMATED 330 10^3/uL (150-450); WHITE BLOOD COUNT 3.9 10^3/uL (4.0-10.0)
[2022-05-04 14:49] LABS: ALBUMIN 3.6 GM/DL (3.2-5.2); ALT/SGPT 16 U/L (12-78); BILIRUBIN,TOTAL 0.3 MG/DL (0.2-1.0); BLOOD UREA NITROGEN 15 MG/DL (7-18); CALCIUM LEVEL 9.7 MG/DL (8.8-10.2); CARBON DIOXIDE LEVEL 30 MEQ/L (21-32); CHLORIDE LEVEL 103 MEQ/L (98-107); CHOLESTEROL LEVEL 233 MG/DL (<200); CHOLESTEROL RISK RATIO 4.017 (<5); CREATININE FOR GFR 0.67 MG/DL (0.55-1.30); GLOMERULAR FILTRATION RATE > 60.0 (>45); GLUCOSE, FASTING 138 MG/DL (70-100); HDL CHOLESTEROL 58 MG/DL (>40); LDL CHOLESTEROL 160 MG/DL (<100); MAGNESIUM LEVEL 2.2 MG/DL (1.8-2.4); NON-HDL-C 175 MG/DL; POTASSIUM SERUM 4.8 MEQ/L (3.5-5.1); SODIUM LEVEL 136 MEQ/L (136-145); TOTAL PROTEIN 6.8 GM/DL (6.4-8.2); TRIGLYCERIDES LEVEL 76 MG/DL (<150)
== END ==
LOC: M PLALAB 09:21
PROVIDERS: ATTEND Physician Assistant
DX: I11.0 Hypertensive heart disease with heart failure (principal); E78.2 Mixed hyperlipidemia

== ENCOUNTER → 2022-05-26 | Outpatient (CLI) | payer MEDICARE | LOC: M PLAIMG 12:41 | PROVIDERS: ATTEND Internal Medicine Pulmonary Disease | DX: R91.8 Other nonspecific abnormal finding of lung field (principal); I70.0 Atherosclerosis of aorta; Z95.0 Presence of cardiac pacemaker; D86.0 Sarcoidosis of lung; R59.0 Localized enlarged lymph nodes; I25.10 Atherosclerotic heart disease of native coronary artery without angina pectoris ==

== ENCOUNTER → 2022-07-13 | Outpatient (CLI) | payer MEDICARE | LOC: M WHC 12:47 | PROVIDERS: ATTEND Family Medicine | DX: Z12.31 Encounter for screening mammogram for malignant neoplasm of breast (principal) ==

== ENCOUNTER → 2022-09-14 | Outpatient (CLI) | payer MEDICARE ==
[2022-09-14 15:23] LABS: BASO # 0.1 10^3/uL (0.0-0.2); BASO % 1.2 % (0.0-1.0); EOS # 0.1 10^3/uL (0.0-0.5); EOS % 2.5 % (0.0-3.0); HEMATOCRIT 40.9 % (36.0-47.0); HEMOGLOBIN 13.4 g/dl (12.0-15.5); LYMPH # 1.4 10^3/uL (1.5-5.0); LYMPH % 34.4 % (24.0-44.0); MEAN CORPUSCULAR HEMOGLOBIN 31.2 pg (27.0-33.0); MEAN CORPUSCULAR HGB CONC 32.8 g/dl (32.0-36.5); MEAN CORPUSCULAR VOLUME 95.3 fl (80.0-96.0); MONO # 0.5 10^3/uL (0.0-0.8); MONO % 12.1 % (2.0-8.0); NEUTROPHILS % 49.6 % (36.0-66.0); PLATELET COUNT, AUTOMATED 256 10^3/uL (150-450); RED BLOOD COUNT 4.29 10^6/uL (4.00-5.40)
[2022-09-14 15:34] LABS: CREATININE, URINE 65.5 MG/DL; MAU/CREAT RATIO 9.1 MCG/MG (0.0-30.0)
[2022-09-14 17:47] LABS: ALKALINE PHOSPHATASE 28 U/L (46-116); ALT/SGPT 17 U/L (7.0-40); AST/SGOT 20 U/L (<34); BILIRUBIN,TOTAL 0.6 MG/DL (0.3-1.2); BLOOD UREA NITROGEN 13 MG/DL (9-23); CALCIUM LEVEL 9.6 MG/DL (8.3-10.6); CARBON DIOXIDE LEVEL 30 MMOL/L (20-31); CHLORIDE LEVEL 100 MMOL/L (98-107); CHOLESTEROL LEVEL 173 MG/DL (<200); CHOLESTEROL RISK RATIO 2.35 (<5); CREATININE FOR GFR 0.62 MG/DL (0.55-1.30); FREE T4 1.37 NG/DL (0.89-1.76); GLOMERULAR FILTRATION RATE > 60.0 (>45); GLUCOSE, FASTING 119 MG/DL (74-106); HDL CHOLESTEROL 73.4 MG/DL (>40); LDL CHOLESTEROL 87.6 MG/DL (<100); NON-HDL-C 100 MG/DL; POTASSIUM SERUM 4.8 MMOL/L (3.5-5.1); SODIUM LEVEL 135 MMOL/L (136-145); THYROID STIMULATING HORMONE 0.209 uIU/ML (0.55-4.78); TOTAL PROTEIN 6.7 G/DL (5.7-8.2); TRIGLYCERIDES LEVEL 60 MG/DL (<150)
== END ==
LOC: M PLALAB 08:58
PROVIDERS: ATTEND Family Medicine
DX: E11.9 Type 2 diabetes mellitus without complications (principal); E03.9 Hypothyroidism, unspecified; E78.2 Mixed hyperlipidemia

== ENCOUNTER 2023-01-22 23:28 | Emergency (ER) | payer MEDICARE ==
[~2023-01-22] VITALS: Ht 175.3 cm; Wt 99.1 kg
[2023-01-23 00:14] LABS: BASO # 0.1 10^3/uL (0.0-0.2); BASO % 0.9 % (0.0-1.0); EOS # 0.2 10^3/uL (0.0-0.5); HEMATOCRIT 38.3 % (36.0-47.0); HEMOGLOBIN 13.1 g/dl (12.0-15.5); LYMPH # 2.5 10^3/uL (1.5-5.0); LYMPH % 37.2 % (24.0-44.0); MEAN CORPUSCULAR HEMOGLOBIN 31.5 pg (27.0-33.0); MEAN CORPUSCULAR HGB CONC 34.2 g/dl (32.0-36.5); MEAN CORPUSCULAR VOLUME 92.1 fl (80.0-96.0); MONO # 0.7 10^3/uL (0.0-0.8); MONO % 10.1 % (2.0-8.0); NEUTROPHILS # 3.2 10^3/uL (1.5-8.5); PLATELET COUNT, AUTOMATED 241 10^3/uL (150-450); RED BLOOD COUNT 4.16 10^6/uL (4.00-5.40); WHITE BLOOD COUNT 6.6 10^3/uL (4.0-10.0)
[2023-01-23 00:23] LABS: ALKALINE PHOSPHATASE 30 U/L (46-116); ALT/SGPT 20 U/L (7.0-40); AST/SGOT 14 U/L (<34); BILIRUBIN,DIRECT 0.1 MG/DL (<0.4); BILIRUBIN,TOTAL 0.4 MG/DL (0.3-1.2); BLOOD UREA NITROGEN 21 MG/DL (9-23); CALCIUM LEVEL 9.3 MG/DL (8.3-10.6); CARBON DIOXIDE LEVEL 25 MMOL/L (20-31); CHLORIDE LEVEL 97 MMOL/L (98-107); CREATININE FOR GFR 0.65 MG/DL (0.55-1.30); GLOMERULAR FILTRATION RATE > 60.0 (>39); GLUCOSE, FASTING 132 MG/DL (74-106); POTASSIUM SERUM 4.4 MMOL/L (3.5-5.1); SODIUM LEVEL 129 MMOL/L (136-145); TOTAL PROTEIN 6.6 G/DL (5.7-8.2)
[2023-01-23 01:17] LABS: CK-MB VALUE MASS 1.8 NG/ML (<3.6)
[2023-01-23 01:19] LABS: CPK CREATINE PHOSPHOKINASE 161 U/L (34-145); MB/CK RELATIVE INDEX 1.11 (< OR =4)
[2023-01-23 02:08] LABS: CK-MB VALUE MASS 3.3 NG/ML (<3.6)
[2023-01-23 02:09] LABS: MB/CK RELATIVE INDEX 1.94 (< OR =4)
[2023-01-23] MEDS ORDERED: ASPIRIN 81MG CHEW TABLET PO ONE (02:15)
[2023-01-23] MEDS ORDERED: HEPARIN DRIP 25,000 UNITS in IV 1 EA IV SCH (02:30)
[2023-01-23] MEDS ORDERED: NITROGLYCERIN 0.4MG SUBL TABLET SL PRN (02:30)
[2023-01-23 03:10] LABS: INR 0.86; PROTHROMBIN TIME 11.9 SECONDS (12.5-14.5)
[2023-01-23 03:11] LABS: PARTIAL THROMBOPLASTIN TIME 31.4 SECONDS (24.8-34.2)
[2023-01-23] MEDS ORDERED: NS 1,000 ML IV ONE (03:15)
[2023-01-23 03:31] LABS: RSV AMPLIFICATION NEGATIVE (NEGATIVE)
[2023-01-23 04:48] VITALS: BP 116/69; TEMP 97.8; O2SAT 99
== END 2023-01-23 04:52 | disposition short-term general hospital (02) ==
LOC: M ED 23:28
DX: I21.4 Non-ST elevation (NSTEMI) myocardial infarction (principal); I16.1 Hypertensive emergency; I10 Essential (primary) hypertension; E78.5 Hyperlipidemia, unspecified; D86.9 Sarcoidosis, unspecified; Z95.0 Presence of cardiac pacemaker; Z79.82 Long term (current) use of aspirin; Z79.899 Other long term (current) drug therapy

== ENCOUNTER → 2023-02-11 | Outpatient (CLI) | payer MEDICARE ==
[2023-02-11 12:18] LABS: HEMATOCRIT 40.7 % (36.0-47.0); HEMOGLOBIN 13.6 g/dl (12.0-15.5); MEAN CORPUSCULAR HEMOGLOBIN 31.6 pg (27.0-33.0); MEAN CORPUSCULAR HGB CONC 33.4 g/dl (32.0-36.5); MEAN CORPUSCULAR VOLUME 94.4 fl (80.0-96.0); PLATELET COUNT, AUTOMATED 253 10^3/uL (150-450); RED BLOOD COUNT 4.31 10^6/uL (4.00-5.40); WHITE BLOOD COUNT 3.8 10^3/uL (4.0-10.0)
[2023-02-11 12:43] LABS: ALBUMIN 3.9 G/DL (3.2-5.2); ALKALINE PHOSPHATASE 29 U/L (46-116); ALT/SGPT 19 U/L (7.0-40); AST/SGOT 14 U/L (<34); BILIRUBIN,TOTAL 0.6 MG/DL (0.3-1.2); BLOOD UREA NITROGEN 13 MG/DL (9-23); CALCIUM LEVEL 10.2 MG/DL (8.3-10.6); CARBON DIOXIDE LEVEL 26 MMOL/L (20-31); CHLORIDE LEVEL 100 MMOL/L (98-107); CHOLESTEROL LEVEL 179 MG/DL (<200); CHOLESTEROL RISK RATIO 2.39 (<5); CREATININE FOR GFR 0.65 MG/DL (0.55-1.30); GLOMERULAR FILTRATION RATE > 60.0 (>39); GLUCOSE, FASTING 118 MG/DL (74-106); HDL CHOLESTEROL 74.6 MG/DL (>40); LDL CHOLESTEROL 92.8 MG/DL (<100); NON-HDL-C 104.4 MG/DL; POTASSIUM SERUM 5.3 MMOL/L (3.5-5.1); SODIUM LEVEL 132 MMOL/L (136-145); TOTAL PROTEIN 6.5 G/DL (5.7-8.2); TRIGLYCERIDES LEVEL 58 MG/DL (<150)
== END ==
LOC: M PLALAB 08:29
PROVIDERS: ATTEND Physician Assistant
DX: I25.10 Atherosclerotic heart disease of native coronary artery without angina pectoris (principal); I51.81 Takotsubo syndrome; E78.00 Pure hypercholesterolemia, unspecified

== ENCOUNTER → 2023-03-31 | Outpatient (CLI) | payer MEDICARE ==
[2023-03-31 10:23] LABS: EOS # 0.1 10^3/uL (0.0-0.5); EOS % 3.6 % (0.0-3.0); HEMATOCRIT 39.5 % (36.0-47.0); HEMOGLOBIN 13.2 g/dl (12.0-15.5); LYMPH # 1.1 10^3/uL (1.5-5.0); MEAN CORPUSCULAR HEMOGLOBIN 31.7 pg (27.0-33.0); MEAN CORPUSCULAR HGB CONC 33.4 g/dl (32.0-36.5); MEAN CORPUSCULAR VOLUME 94.7 fl (80.0-96.0); MONO # 0.4 10^3/uL (0.0-0.8); MONO % 13.6 % (2.0-8.0); NEUTROPHILS # 1.4 10^3/uL (1.5-8.5); NEUTROPHILS % 45.5 % (36.0-66.0); PLATELET COUNT, AUTOMATED 273 10^3/uL (150-450); RED BLOOD COUNT 4.17 10^6/uL (4.00-5.40); WHITE BLOOD COUNT 3.1 10^3/uL (4.0-10.0)
[2023-03-31 10:31] LABS: HEMOGLOBIN A1c 6.6 % (4.0-6.0)
[2023-03-31 10:40] LABS: ALBUMIN 3.7 G/DL (3.2-5.2); ALKALINE PHOSPHATASE 41 U/L (46-116); ALT/SGPT 18 U/L (7.0-40); AST/SGOT 10 U/L (<34); BILIRUBIN,TOTAL 0.5 MG/DL (0.3-1.2); BLOOD UREA NITROGEN 9 MG/DL (9-23); CALCIUM LEVEL 9.3 MG/DL (8.3-10.6); CARBON DIOXIDE LEVEL 27 MMOL/L (20-31); CHLORIDE LEVEL 104 MMOL/L (98-107); CHOLESTEROL LEVEL 165 MG/DL (<200); CHOLESTEROL RISK RATIO 2.35 (<5); CREATININE FOR GFR 0.63 MG/DL (0.55-1.30); GLOMERULAR FILTRATION RATE > 60.0 (>39); GLUCOSE, FASTING 104 MG/DL (74-106); HDL CHOLESTEROL 70.1 MG/DL (>40); LDL CHOLESTEROL 77.9 MG/DL (<100); NON-HDL-C 94.9 MG/DL; POTASSIUM SERUM 5.2 MMOL/L (3.5-5.1); SODIUM LEVEL 137 MMOL/L (136-145); TOTAL PROTEIN 6.5 G/DL (5.7-8.2); TRIGLYCERIDES LEVEL 85 MG/DL (<150)
== END ==
LOC: M PLALAB 08:46
PROVIDERS: ATTEND Family Medicine
DX: E11.40 Type 2 diabetes mellitus with diabetic neuropathy, unspecified (principal); E78.2 Mixed hyperlipidemia; I50.32 Chronic diastolic (congestive) heart failure; E87.5 Hyperkalemia

== ENCOUNTER → 2023-03-31 | Outpatient (CLI) | payer MEDICARE | LOC: M PLALAB 08:48 | PROVIDERS: ATTEND Physician Assistant | DX: I50.32 Chronic diastolic (congestive) heart failure (principal); E87.5 Hyperkalemia ==

== ENCOUNTER → 2023-07-05 | Outpatient (CLI) | payer MEDICARE ==
[2023-07-05 10:57] LABS: BASO # 0.1 10^3/uL (0.0-0.2); BASO % 1.2 % (0.0-1.0); EOS # 0.1 10^3/uL (0.0-0.5); EOS % 3.2 % (0.0-3.0); HEMATOCRIT 39.1 % (36.0-47.0); LYMPH # 1.3 10^3/uL (1.5-5.0); LYMPH % 30.7 % (24.0-44.0); MEAN CORPUSCULAR HEMOGLOBIN 32.2 pg (27.0-33.0); MEAN CORPUSCULAR HGB CONC 33.2 g/dl (32.0-36.5); MEAN CORPUSCULAR VOLUME 96.8 fl (80.0-96.0); MONO # 0.4 10^3/uL (0.0-0.8); MONO % 10.2 % (2.0-8.0); NEUTROPHILS # 2.2 10^3/uL (1.5-8.5); NEUTROPHILS % 54.5 % (36.0-66.0); PLATELET COUNT, AUTOMATED 301 10^3/uL (150-450); RED BLOOD COUNT 4.04 10^6/uL (4.00-5.40); WHITE BLOOD COUNT 4.1 10^3/uL (4.0-10.0)
[2023-07-05 11:09] LABS: HEMOGLOBIN A1c 6.1 % (4.0-6.0)
[2023-07-05 11:30] LABS: ALBUMIN 3.7 G/DL (3.2-5.2); ALKALINE PHOSPHATASE 37 U/L (46-116); ALT/SGPT 15 U/L (7.0-40); AST/SGOT 13 U/L (<34); BILIRUBIN,TOTAL 0.5 MG/DL (0.3-1.2); BLOOD UREA NITROGEN 13 MG/DL (9-23); CALCIUM LEVEL 9.2 MG/DL (8.3-10.6); CARBON DIOXIDE LEVEL 28 MMOL/L (20-31); CHLORIDE LEVEL 103 MMOL/L (98-107); CREATININE FOR GFR 0.68 MG/DL (0.55-1.30); FREE T4 1.26 NG/DL (0.89-1.76); GLOMERULAR FILTRATION RATE > 60.0 (>39); GLUCOSE, FASTING 109 MG/DL (74-106); POTASSIUM SERUM 5.2 MMOL/L (3.5-5.1); SODIUM LEVEL 137 MMOL/L (136-145); TOTAL PROTEIN 6.7 G/DL (5.7-8.2)
== END ==
LOC: M PLALAB 08:41
PROVIDERS: ATTEND Nurse Practitioner Adult Health
DX: E11.40 Type 2 diabetes mellitus with diabetic neuropathy, unspecified (principal); E03.9 Hypothyroidism, unspecified; I51.81 Takotsubo syndrome; E78.00 Pure hypercholesterolemia, unspecified

== ENCOUNTER → 2023-07-05 | Outpatient (CLI) | payer MEDICARE ==
[2023-07-05 11:31] LABS: ALBUMIN 3.8 G/DL (3.2-5.2); ALKALINE PHOSPHATASE 37 U/L (46-116); ALT/SGPT 15 U/L (7.0-40); AST/SGOT 16 U/L (<34); BILIRUBIN,TOTAL 0.5 MG/DL (0.3-1.2); BLOOD UREA NITROGEN 13 MG/DL (9-23); CALCIUM LEVEL 9.2 MG/DL (8.3-10.6); CARBON DIOXIDE LEVEL 28 MMOL/L (20-31); CHLORIDE LEVEL 103 MMOL/L (98-107); CHOLESTEROL LEVEL 174 MG/DL (<200); CREATININE FOR GFR 0.65 MG/DL (0.55-1.30); GLOMERULAR FILTRATION RATE > 60.0 (>39); GLUCOSE, FASTING 110 MG/DL (74-106); HDL CHOLESTEROL 78.9 MG/DL (>40); LDL CHOLESTEROL 82.1 MG/DL (<100); MAGNESIUM LEVEL 2.1 MG/DL (1.8-2.4); NON-HDL-C 95.1 MG/DL; POTASSIUM SERUM 5.2 MMOL/L (3.5-5.1); SODIUM LEVEL 138 MMOL/L (136-145); TOTAL PROTEIN 6.8 G/DL (5.7-8.2); TRIGLYCERIDES LEVEL 65 MG/DL (<150)
== END ==
LOC: M PLALAB 08:43
PROVIDERS: ATTEND Physician Assistant
DX: I51.81 Takotsubo syndrome (principal); E78.00 Pure hypercholesterolemia, unspecified

== ENCOUNTER → 2023-09-14 | Outpatient (CLI) | payer MEDICARE | LOC: M WHC 11:01 | PROVIDERS: ATTEND Nurse Practitioner Adult Health | DX: Z12.31 Encounter for screening mammogram for malignant neoplasm of breast (principal) ==

== ENCOUNTER → 2023-10-08 | Outpatient (CLI) | payer MEDICARE ==
[~2023-10-08] MED LIST changes: -ASPI-161 PO; +ASPI-615 PO
[2023-10-08 14:21] LABS: BASO # 0.1 10^3/uL (0.0-0.2); BASO % 1.1 % (0.0-1.0); EOS # 0.1 10^3/uL (0.0-0.5); EOS % 3.1 % (0.0-3.0); HEMATOCRIT 39.3 % (36.0-47.0); LYMPH # 1.4 10^3/uL (1.5-5.0); LYMPH % 30.9 % (24.0-44.0); MEAN CORPUSCULAR HEMOGLOBIN 31.4 pg (27.0-33.0); MEAN CORPUSCULAR HGB CONC 33.1 g/dl (32.0-36.5); MEAN CORPUSCULAR VOLUME 94.9 fl (80.0-96.0); MONO # 0.4 10^3/uL (0.0-0.8); MONO % 8.6 % (2.0-8.0); NEUTROPHILS # 2.6 10^3/uL (1.5-8.5); NEUTROPHILS % 56.1 % (36.0-66.0); PLATELET COUNT, AUTOMATED 292 10^3/uL (150-450); RED BLOOD COUNT 4.14 10^6/uL (4.00-5.40); WHITE BLOOD COUNT 4.6 10^3/uL (4.0-10.0)
[2023-10-08 14:28] LABS: ALBUMIN 3.7 G/DL (3.2-5.2); ALKALINE PHOSPHATASE 33 U/L (46-116); ALT/SGPT 20 U/L (7.0-40); AST/SGOT 15 U/L (<34); BILIRUBIN,TOTAL 0.4 MG/DL (0.3-1.2); BLOOD UREA NITROGEN 16 MG/DL (9-23); CALCIUM LEVEL 9.1 MG/DL (8.3-10.6); CARBON DIOXIDE LEVEL 28 MMOL/L (20-31); CHLORIDE LEVEL 106 MMOL/L (98-107); CREATININE FOR GFR 0.68 MG/DL (0.55-1.30); FREE T4 0.96 NG/DL (0.89-1.76); GLOMERULAR FILTRATION RATE > 60.0 (>39); GLUCOSE, FASTING 113 MG/DL (74-106); POTASSIUM SERUM 5.3 MMOL/L (3.5-5.1); SODIUM LEVEL 138 MMOL/L (136-145); THYROID STIMULATING HORMONE 0.909 uIU/ML (0.55-4.78); TOTAL PROTEIN 6.4 G/DL (5.7-8.2)
[2023-10-08 14:49] LABS: HEMOGLOBIN A1c 6.2 % (4.0-6.0)
[2023-10-08 14:52] LABS: CREATININE, URINE 102.3 MG/DL; MAU/CREAT RATIO 4.8 MCG/MG (0.0-30.0)
== END ==
LOC: M PLALAB 08:44
PROVIDERS: ATTEND Nurse Practitioner Adult Health
DX: E11.40 Type 2 diabetes mellitus with diabetic neuropathy, unspecified (principal); E03.9 Hypothyroidism, unspecified

== ENCOUNTER → 2024-01-07 | Outpatient (CLI) | payer MEDICARE ==
[~2024-01-07] MED LIST changes: +ROSU5TAB40 PO; -ROSU5TAB5 PO
[2024-01-07 10:23] LABS: EOS # 0.1 10^3/uL (0.0-0.5); EOS % 2.5 % (0.0-3.0); HEMATOCRIT 41.1 % (36.0-47.0); LYMPH # 1.2 10^3/uL (1.5-5.0); LYMPH % 30.5 % (24.0-44.0); MEAN CORPUSCULAR HEMOGLOBIN 31.9 pg (27.0-33.0); MEAN CORPUSCULAR HGB CONC 34.1 g/dl (32.0-36.5); MEAN CORPUSCULAR VOLUME 93.6 fl (80.0-96.0); MONO # 0.4 10^3/uL (0.0-0.8); MONO % 10.8 % (2.0-8.0); NEUTROPHILS # 2.2 10^3/uL (1.5-8.5); NEUTROPHILS % 54.9 % (36.0-66.0); PLATELET COUNT, AUTOMATED 240 10^3/uL (150-450); RED BLOOD COUNT 4.39 10^6/uL (4.00-5.40)
[2024-01-07 10:38] LABS: HEMOGLOBIN A1c 6.4 % (4.0-6.0)
[2024-01-07 10:47] LABS: ALKALINE PHOSPHATASE 38 U/L (46-116); ALT/SGPT 20 U/L (7.0-40); AST/SGOT 13 U/L (<34); BILIRUBIN,TOTAL 0.7 MG/DL (0.3-1.2); BLOOD UREA NITROGEN 12 MG/DL (9-23); CALCIUM LEVEL 9.8 MG/DL (8.3-10.6); CARBON DIOXIDE LEVEL 29 MMOL/L (20-31); CHLORIDE LEVEL 101 MMOL/L (98-107); CHOLESTEROL LEVEL 170 MG/DL (<200); CHOLESTEROL RISK RATIO 1.98 (<5); CREATININE FOR GFR 0.71 MG/DL (0.55-1.30); GLOMERULAR FILTRATION RATE > 60.0 (>39); GLUCOSE, FASTING 119 MG/DL (74-106); HDL CHOLESTEROL 85.6 MG/DL (>40); LDL CHOLESTEROL 72.8 MG/DL (<100); NON-HDL-C 84.4 MG/DL; POTASSIUM SERUM 5.1 MMOL/L (3.5-5.1); SODIUM LEVEL 135 MMOL/L (136-145); TOTAL PROTEIN 6.9 G/DL (5.7-8.2); TRIGLYCERIDES LEVEL 58 MG/DL (<150)
== END ==
LOC: M LAB 08:58 → M PLALAB 08:58
PROVIDERS: ATTEND Nurse Practitioner Adult Health
DX: E11.40 Type 2 diabetes mellitus with diabetic neuropathy, unspecified (principal); E78.2 Mixed hyperlipidemia; R23.2 Flushing

== ENCOUNTER → 2024-01-07 | Outpatient (CLI) | payer MEDICARE | LOC: M LAB 09:02 → M PLALAB 09:02 | PROVIDERS: ATTEND Internal Medicine Pulmonary Disease | DX: R23.2 Flushing (principal) ==

== ENCOUNTER → 2024-04-11 | Outpatient (CLI) | payer MEDICARE ==
[2024-04-11 11:09] LABS: BASO # 0.1 10^3/uL (0.0-0.2); BASO % 1.4 % (0.0-1.0); EOS # 0.3 10^3/uL (0.0-0.5); EOS % 6.6 % (0.0-3.0); HEMATOCRIT 39.5 % (36.0-47.0); HEMOGLOBIN 12.9 g/dl (12.0-15.5); LYMPH # 1.5 10^3/uL (1.5-5.0); MEAN CORPUSCULAR HEMOGLOBIN 31.7 pg (27.0-33.0); MEAN CORPUSCULAR HGB CONC 32.7 g/dl (32.0-36.5); MEAN CORPUSCULAR VOLUME 97.1 fl (80.0-96.0); MONO # 0.5 10^3/uL (0.0-0.8); MONO % 11.8 % (2.0-8.0); NEUTROPHILS # 1.9 10^3/uL (1.5-8.5); PLATELET COUNT, AUTOMATED 233 10^3/uL (150-450); RED BLOOD COUNT 4.07 10^6/uL (4.00-5.40); WHITE BLOOD COUNT 4.3 10^3/uL (4.0-10.0)
[2024-04-11 11:11] LABS: ALBUMIN 3.8 G/DL (3.2-5.2); ALKALINE PHOSPHATASE 38 U/L (46-116); ALT/SGPT 21 U/L (7.0-40); AST/SGOT 14 U/L (<34); BILIRUBIN,TOTAL 0.4 MG/DL (0.3-1.2); BLOOD UREA NITROGEN 12 MG/DL (9-23); CALCIUM LEVEL 9.4 MG/DL (8.3-10.6); CARBON DIOXIDE LEVEL 29 MMOL/L (20-31); CHLORIDE LEVEL 105 MMOL/L (98-107); CREATININE FOR GFR 0.68 MG/DL (0.55-1.30); GLOMERULAR FILTRATION RATE > 60.0 (>39); GLUCOSE, FASTING 110 MG/DL (74-106); POTASSIUM SERUM 4.6 MMOL/L (3.5-5.1); SODIUM LEVEL 137 MMOL/L (136-145); TOTAL PROTEIN 6.6 G/DL (5.7-8.2)
[2024-04-11 12:05] LABS: HEMOGLOBIN A1c 6.3 % (4.0-6.0)
== END ==
LOC: M PLALAB 08:19
PROVIDERS: ATTEND Nurse Practitioner Adult Health
DX: E11.40 Type 2 diabetes mellitus with diabetic neuropathy, unspecified (principal)

== ENCOUNTER → 2024-08-25 | Outpatient (CLI) | payer MEDICARE ==
[~2024-08-25] MED LIST changes: -ROSU5TAB40 PO; +ROSU5TAB49 PO
[2024-08-25 11:38] LABS: BASO # 0.1 10^3/uL (0.0-0.2); BASO % 1.4 % (0.0-1.0); EOS # 0.1 10^3/uL (0.0-0.5); EOS % 2.8 % (0.0-3.0); HEMATOCRIT 38.7 % (36.0-47.0); HEMOGLOBIN 13.1 g/dl (12.0-15.5); LYMPH # 1.6 10^3/uL (1.5-5.0); LYMPH % 36.9 % (24.0-44.0); MEAN CORPUSCULAR HEMOGLOBIN 31.9 pg (27.0-33.0); MEAN CORPUSCULAR HGB CONC 33.9 g/dl (32.0-36.5); MEAN CORPUSCULAR VOLUME 94.2 fl (80.0-96.0); MONO # 0.5 10^3/uL (0.0-0.8); MONO % 11.1 % (2.0-8.0); NEUTROPHILS % 47.6 % (36.0-66.0); PLATELET COUNT, AUTOMATED 282 10^3/uL (150-450); RED BLOOD COUNT 4.11 10^6/uL (4.00-5.40); WHITE BLOOD COUNT 4.3 10^3/uL (4.0-10.0)
[2024-08-25 11:56] LABS: HEMOGLOBIN A1c 6.5 % (4.0-6.0)
[2024-08-25 16:47] LABS: ALBUMIN 3.9 G/DL (3.2-5.2); ALKALINE PHOSPHATASE 34 U/L (35-104); ALT/SGPT 28 U/L (7.0-40); AST/SGOT 22 U/L (<34); BILIRUBIN,TOTAL 0.5 MG/DL (0.3-1.2); BLOOD UREA NITROGEN 17 MG/DL (9-23); CALCIUM LEVEL 9.4 MG/DL (8.3-10.6); CARBON DIOXIDE LEVEL 30 MMOL/L (20-31); CHLORIDE LEVEL 105 MMOL/L (98-107); CHOLESTEROL LEVEL 168 MG/DL (<200); CREATININE FOR GFR 0.69 MG/DL (0.55-1.30); GLOMERULAR FILTRATION RATE > 60.0 (>39); GLUCOSE, FASTING 110 MG/DL (74-106); HDL CHOLESTEROL 79.9 MG/DL (>40); LDL CHOLESTEROL 75.7 MG/DL (<100); NON-HDL-C 88.1 MG/DL; SODIUM LEVEL 137 MMOL/L (136-145); TOTAL PROTEIN 6.9 G/DL (5.7-8.2); TRIGLYCERIDES LEVEL 62 MG/DL (<150)
[2024-08-25 16:49] LABS: FREE T4 1.37 NG/DL (0.89-1.76)
== END ==
LOC: M PLALAB 09:14
PROVIDERS: ATTEND Nurse Practitioner Adult Health
DX: E11.40 Type 2 diabetes mellitus with diabetic neuropathy, unspecified (principal)

== ENCOUNTER → 2024-09-18 | Outpatient (CLI) | payer MEDICARE | LOC: M WHC 10:26 | PROVIDERS: ATTEND Nurse Practitioner Adult Health | DX: Z12.31 Encounter for screening mammogram for malignant neoplasm of breast (principal); Z13.820 Encounter for screening for osteoporosis; M85.852 Other specified disorders of bone density and structure, left thigh; R92.313 Mammographic fatty tissue density, bilateral breasts ==

== ENCOUNTER 2024-10-21 23:27 | Emergency (ER) | payer MEDICARE ==
[~2024-10-21] VITALS: Ht 175.3 cm; Wt 103.1 kg
[2024-10-21 23:58] LABS: BASO # 0.1 10^3/uL (0.0-0.2); BASO % 1.2 % (0.0-1.0); EOS # 0.1 10^3/uL (0.0-0.5); EOS % 2.2 % (0.0-3.0); HEMATOCRIT 39.7 % (36.0-47.0); HEMOGLOBIN 13.6 g/dl (12.0-15.5); LYMPH # 2.3 10^3/uL (1.5-5.0); LYMPH % 38.2 % (24.0-44.0); MEAN CORPUSCULAR HEMOGLOBIN 31.6 pg (27.0-33.0); MEAN CORPUSCULAR HGB CONC 34.3 g/dl (32.0-36.5); MEAN CORPUSCULAR VOLUME 92.1 fl (80.0-96.0); MONO # 0.6 10^3/uL (0.0-0.8); MONO % 9.5 % (2.0-8.0); NEUTROPHILS # 2.9 10^3/uL (1.5-8.5); NEUTROPHILS % 48.7 % (36.0-66.0); PLATELET COUNT, AUTOMATED 239 10^3/uL (150-450); RED BLOOD COUNT 4.31 10^6/uL (4.00-5.40)
[2024-10-22 00:21] LABS: BLOOD UREA NITROGEN 9 MG/DL (9-23); CALCIUM LEVEL 9.1 MG/DL (8.3-10.6); CARBON DIOXIDE LEVEL 26 MMOL/L (20-31); CHLORIDE LEVEL 100 MMOL/L (98-107); CPK CREATINE PHOSPHOKINASE 127 U/L (34-145); CREATININE FOR GFR 0.61 MG/DL (0.55-1.30); GLOMERULAR FILTRATION RATE > 60.0 (>39); GLUCOSE, FASTING 142 MG/DL (74-106); MB/CK RELATIVE INDEX 0.78 (< OR =4); POTASSIUM SERUM 4.4 MMOL/L (3.5-5.1); SODIUM LEVEL 135 MMOL/L (136-145)
[2024-10-22 01:17] LABS: CK-MB VALUE MASS < 1.0 NG/ML (<3.6)
[2024-10-22 01:18] LABS: CPK CREATINE PHOSPHOKINASE 119 U/L (34-145); MB/CK RELATIVE INDEX 0.84 (< OR =4)
[2024-10-22] MEDS ORDERED: HEPARIN SOD (PORCINE) 5000UNITS/ML 1ML VIAL/SYRINGE IV PRN (01:40)
[2024-10-22] MEDS: LORazepam 2 MG/ML 1ML VIAL IV STA (01:52)
[2024-10-22] MEDS: ASPIRIN 81MG CHEW TABLET PO ONE (01:58)
[2024-10-22] MEDS: HEPARIN SOD (PORCINE) 5000UNITS/ML 1ML VIAL/SYRINGE IV ONE (03:00)
[2024-10-22] MEDS: HEPARIN DRIP 25,000 UNITS in IV 1 EA IV SCH (03:01)
[2024-10-22 04:51] LABS: MB/CK RELATIVE INDEX 2.29 (< OR =4)
[2024-10-22 10:45] VITALS: TEMP 98.2
[2024-10-22 10:46] VITALS: O2SAT 96
[2024-10-22 10:55] VITALS: BP 125/79
== END 2024-10-22 10:54 | disposition short-term general hospital (02) ==
LOC: M ED 23:27
DX: I21.4 Non-ST elevation (NSTEMI) myocardial infarction (principal); I25.10 Atherosclerotic heart disease of native coronary artery without angina pectoris; I10 Essential (primary) hypertension; E03.9 Hypothyroidism, unspecified; Z95.0 Presence of cardiac pacemaker; Z79.899 Other long term (current) drug therapy; Z79.82 Long term (current) use of aspirin
CPT/HCPCS: 36415; 71045; 80048; 82550; 82553; 84484; 85025; 85730; 93005; 93041; 94760; 96365; 96366; 96375; 99285; J2060

== ENCOUNTER → 2025-04-05 | Outpatient (CLI) | payer MEDICARE ==
[2025-04-05 11:47] LABS: BASO # 0.1 10^3/uL (0.0-0.2); BASO % 1.3 % (0.0-1.0); EOS # 0.1 10^3/uL (0.0-0.5); EOS % 3.0 % (0.0-3.0); LYMPH # 1.3 10^3/uL (1.5-5.0); LYMPH % 33.5 % (24.0-44.0); MONO # 0.5 10^3/uL (0.0-0.8); MONO % 12.2 % (2.0-8.0); NEUTROPHILS # 2.0 10^3/uL (1.5-8.5); NEUTROPHILS % 49.7 % (36.0-66.0); PLATELET COUNT, AUTOMATED 214 10^3/uL (150-450)
[2025-04-05 11:53] LABS: FREE T4 1.26 NG/DL (0.89-1.76)
[2025-04-05 12:32] LABS: ALT/SGPT 17 U/L (7.0-40); AST/SGOT 19 U/L (<34); CALCIUM LEVEL 9.5 MG/DL (8.3-10.6); CARBON DIOXIDE LEVEL 29 MMOL/L (20-31); CHLORIDE LEVEL 103 MMOL/L (98-107); CHOLESTEROL LEVEL 154 MG/DL (<200); CHOLESTEROL RISK RATIO 2.21 (<5); CREATININE FOR GFR 0.71 MG/DL (0.55-1.30); GLOMERULAR FILTRATION RATE > 90.0 (>39); LDL CHOLESTEROL 67.4 MG/DL (<100); NON-HDL-C 84.6 MG/DL; POTASSIUM SERUM 5.1 MMOL/L (3.5-5.1); SODIUM LEVEL 140 MMOL/L (136-145); TRIGLYCERIDES LEVEL 86 MG/DL (<150)
[2025-04-05 13:15] LABS: ESTIMATED AVERAGE GLUCOSE 143.0 MG/DL (60-110)
== END ==
LOC: M PLALAB 09:02
PROVIDERS: ATTEND Nurse Practitioner Adult Health
DX: E11.40 Type 2 diabetes mellitus with diabetic neuropathy, unspecified (principal); I10 Essential (primary) hypertension; E78.00 Pure hypercholesterolemia, unspecified

== ENCOUNTER → 2025-04-05 | Outpatient (CLI) | payer MEDICARE ==
[2025-04-05 11:51] LABS: CALCIUM LEVEL 9.6 MG/DL (8.3-10.6); CARBON DIOXIDE LEVEL 30.0 MMOL/L (20-31); CHLORIDE LEVEL 103.0 MMOL/L (98-107); CREATININE FOR GFR 0.72 MG/DL (0.55-1.30); GLOMERULAR FILTRATION RATE 88.8 (>39); POTASSIUM SERUM 5.4 MMOL/L (3.5-5.1); SODIUM LEVEL 142.0 MMOL/L (136-145)
== END ==
LOC: M PLALAB 09:04
PROVIDERS: ATTEND Student in an Organized Health Care Education/Training Program
DX: I10 Essential (primary) hypertension (principal); E78.00 Pure hypercholesterolemia, unspecified

== ENCOUNTER → 2025-04-10 | Outpatient (REF) | payer MEDICARE, OTHER ==
[2025-04-10 13:50] LABS: CREATININE, URINE 36.8 MG/DL; MALB URINE SIEMENS < 3.0 MG/L
== END ==
LOC: M LAB REF 12:58
PROVIDERS: ATTEND Family Medicine
DX: E11.40 Type 2 diabetes mellitus with diabetic neuropathy, unspecified (principal); E78.2 Mixed hyperlipidemia; E03.9 Hypothyroidism, unspecified

== ENCOUNTER → 2025-04-24 | Outpatient (CLI) | payer MEDICARE, OTHER ==
[2025-04-24 14:13] LABS: CALCIUM LEVEL 9.4 MG/DL (8.3-10.6); CARBON DIOXIDE LEVEL 30 MMOL/L (20-31); CHLORIDE LEVEL 103 MMOL/L (98-107); CREATININE FOR GFR 0.66 MG/DL (0.55-1.30); GLOMERULAR FILTRATION RATE > 90.0 (>39); POTASSIUM SERUM 4.3 MMOL/L (3.5-5.1); SODIUM LEVEL 141 MMOL/L (136-145)
== END ==
LOC: M PLALAB 09:28
DX: I50.9 Heart failure, unspecified (principal)